=== PATIENT | male | born 1955 | race Caucasian/White ===

== ENCOUNTER 2020-02-16 12:15 | Observation (INO) ==
--- NOTE | 2020-02-16 13:25 | XRay Report ---
XR chest 2V PA/lateral CLINICAL HISTORY: I25.9 PREOPERATIVE CHEST COMPARISON STUDY: February 2008 FINDINGS: The heart is enlarged. There are small septal lines suggesting mild pulmonary vascular beni estion. There are small bilateral pleural effusions. There is no lobar consolidation. Increased basil ar markings while nonspecific, likely represent atelectasis or chronic interstitial lung disease. IMPRESSION: 1. Cardiomegaly, small bilateral pleural effusions, and mild pulmonary vascular congestion 2. Increased basilar markings, likely secondary to atelectasis or chronic interstitial lung disease. ACT 112: Negative or not required by law. Electronically signed by: Jerome Dyson M.D. 02/16/2020 1:24 PM
[2020-02-16 14:06] LABS: Hematocrit (blood only) 41.9 % (42-52); Hemoglobin 14.3 g/dL (14.0-18.0); Mean Corpuscular Hemoglobin 31.9 pg (25-34); Mean Corpuscular Volume 93.5 fL (80-100); Mean Platelet Volume 9.2 fL (7.4-10.4); Platelet Count 145 K/uL (130-400); RDW Coefficient of Variation 13.6 % (11.5-14.5); RDW Standard Deviation 46.6 fL (36.4-46.3); Red Blood Count 4.48 M/uL (4.7-6.1); White Blood Count 7.01 K/uL (4.8-10.8)
[2020-02-16 14:12] LABS: Mean Corpuscular Hgb Conc 34.1 g/dL (32-36)
[2020-02-16 14:15] LABS: INR 1.1 (0.9-1.1); Prothrombin Time 11.2 Seconds (9.0-12.0)
[2020-02-16 14:23] LABS: BUN Creatinine Ratio 10.5 (10-20); Calcium 9.4 mg/dl (8.5-10.1); Creatinine Clr Calc Pharmacy 90.8 ml/min; Est GFR (African American) 83.6; Est GFR (Non-African American) 72.2; Potassium 4.5 mmol/L (3.5-5.1)
[2020-02-16] MEDS ORDERED: HEPARIN (PORCINE) 1000 UNIT/ML 10 ML (CATH LAB USE ONLY) ONE ×2 (15:35→17:05)
[2020-02-16] MEDS ORDERED: MIDAZOLAM HCL 1 MG/ML 2ML VIAL ONE ×2 (15:35→16:53)
[2020-02-16] MEDS ORDERED: fentaNYL citrate 100 MCG/2 ML VIAL ONE (15:35)
[2020-02-16] MEDS ORDERED: NiCARDipine HCL INJ 2.5 MG/ML 10 ML AMP ONE (15:35)
[2020-02-16] MEDS ORDERED: NITROGLYCERIN/D5W 100MCG/ML 20ML SYR ONE (15:36)
--- NOTE | 2020-02-16 15:48 | History & Physical Bridge Note ---
Date of Service February 16, 2020 History & Physical Bridge Note I have examined the patient, reviewed the History & Physical and in the interval since the performance of the History & Physical I have noted the following changes of clinical significance: no changes noted I have explained the risk , benefit and intent of the cath and he is willing to proceed.
[2020-02-16] MEDS ORDERED: SODIUM CHLORIDE 0.9% 1000ML 1,000 ML IV SCH (16:00)
--- NOTE | 2020-02-16 17:09 | Cardiac Catheterization ---
Date of Service February 16, 2020 Cardiac Cath Report Cardiac Cath Report Procedure: 1. Coronary angiography 2. Left heart catheterization 3. Left ventriculogram History: This is a 64-year-old male patient who over 20 years ago had a stent placed due to an acute event. He has done well over the years but recently experienced exertional angina which crescendoed in nature and he was sent in for repeat cardiac catheterization. Procedure summary: After informed consent was obtained, the patient was taken to the cardiac catheterization lab where he was prepped and draped in usual manner for a right transradial approach. Preformed 5 Nigerien diagnostic catheters were utilized for the coronary angiograms. A 5 Nigerien pigtail catheter was utilized for the left ventriculogram and left heart pressures. Following the procedure the patient underwent coronary intervention and then was admitted in stable condition. ACC data: Start time 1555 End time 1620 Opening aortic pressure 106/67 Closing aortic pressure 117/71 Left ventricular pressure 117/19 Sedation 1 mg intravenous Versed IV fluid 150 cc normal saline Contrast 170 cc Optiray Fluoroscopy time 4.8 minutes Radiation 1578 mGy DAP 152.6 Gy/cm Right dominant system AUC score 9 Coronary angiography: The proximal coronary arteries are calcified. Selective injections of the left coronary artery revealed the left main trunk to be short but patent. The left circumflex artery consists principally of a large lateral marginal branch supplying the lateral myocardium. Following that branch the left circumflex artery becomes atretic. There are also 2 small proximal marginal branches. The proximal and mid left circumflex along with the large marginal artery are patent. The LAD has a 95% stenosis in the very proximal segment just after the takeoff of the left main trunk. The LAD then goes on to the apex of the heart. It gives off 2 large diagonal branches. The remainder the LAD system is patent. Injections in the right coronary artery revealed to be dominant. The right coronary artery has an 70% concentric stenosis followed by a 70% stenosis in the mid segment after the takeoff of the marginal branch. The remainder the right coronary artery has nonobstructive disease Left ventriculogram: The left ventricle is dilated. There is global hypokinesis with akinesis of the posterior and inferior myocardium. The estimated left ventricular ejection fraction is around 35 to 40%. The mitral valve is competent. The aortic root and ascending aorta have normal morphology and diameter. Summary: The patient has a high-grade stenosis of the very proximal segment of the LAD which is most likely the culprit of the patient's crescendo angina. The left circumflex artery consists principally of a large posterior lateral marginal branch which is patent. The right coronary artery has two 700% stenoses in its mid segment with the remainder the artery being patent. Recommendations: The index artery is the LAD. The patient will undergo coronary intervention on the proximal LAD. Your of his coronary disease and ischemic cardiomyopathy will be treated medically.
[2020-02-16] MEDS ORDERED: CLOPIDOGREL BISULFATE 300 MG TAB ONE (17:16)
--- NOTE | 2020-02-16 17:29 | Post Anesthesia Assessment ---
Date of Service February 16, 2020 Post Sedation Assessment Vital Signs Pulse Resp BP Pulse Ox 02/16/20 13:35 72 18 142/83 H 96 Recovery Score Activity: Moves 4 extremities Respiration: Deep Breath/Cough Circulation: +/-20% PreAnes Value Consciousness: Fully Awake Oxygen Saturation: O2 needed for >90% Discharge Sedation Level of Care: Fast Track Phase II Post Sedation Plan On clinical assessment, the patient appears to have tolerated the sedation without complications. Patient is recovering as anticipated. Patient will continue to be monitored by nursing and may be discharged when sedation discharge criteria are met per below protocol. Upon Completions of procedure up to 15 minutes continue every 5 minute vital signs and the P.A.R. score; then discharge to a Phase I or Fast Track to Phase II per the following guidelines: * Discharge Patient to appropriate Phase II area if PAR is 8 or greater or return to pre- procedure baseline. The post - procedure orders will be as directed. * If PAR score is less than 8 or not return to pre-procedure baseline then patient will follow Phase I monitoring till PAR is reached for Phase II. The Phase I may be done in procedure room or may call to secure a Phase I area. * If naloxone or flumazenil are used for reversal, hold in Phase I for continued monitoring from when last reversal dose was given for a minimum of 60 minutes or longer pending the nurse and/or physician discretion of patient condition before discharge to Phase II. Please call the Sedation Physician to re-evaluate and complete post-note for discharge to Phase II area. Do NOT discharge from procedure sedation or Phase 1 until post- sedation evaluation note is complete by procedure /sedation MD Sedation Discharge Instructions to be given to the patient at discharge to home.
[2020-02-16] MEDS ORDERED: ONDANSETRON INJ 2 MG/ML 2 ML VIAL IV PRN (17:40)
[2020-02-16] MEDS ORDERED: NITROGLYCERIN SL 0.4 MG/TAB TAB SL PRN (17:40)
[2020-02-16] MEDS ORDERED: ACETAMINOPHEN 325 MG TAB PO PRN (17:40)
--- NOTE | 2020-02-16 17:40 | Cardiac Catheterization ---
[facility] Data: Merchandise Team Manager Cardiac Status Clinical evaluation leading to the procedure CAD Presenation: Unstable angina Anginal Classification: CCS III Heart Failure: No Cardiogenic Shock within 24 Hours: No Cardiac Arrest within 24 Hours: No Imaging Studies Past 6 Months: Yes Stress Studies Past 6 Months: No Stress Echocardiogram: Yes - Positive Diagnostic Physicians Name: Kaiser Brice MD Status: Elective Closure Device Percutaneous Entry Location: Radial Closure Device: Radial Band Recommendations: PCI without planned CABG PCI Indication: + Stress Test (New LV dysfunction) and Unstable Angina Lesion Segment Name: Ostial LAD Culprit Artery: Yes Stenosis Prior to Rx (%): 95 Chronic Total Occlusion: No IVUS: Yes FFR: No Pre-Procedure JUAN RAMON Flow: 2 Previously Treated Lesion: No Lesion Complexity: High/C Lesion Length (mm): 10 Thrombus Present: Yes Bifurcation Lesion: Yes Guidewire Across Lesion: Stenosis Post-Procedure (%): 0 Post-Procedure JUAN RAMON Flow: 3 Devices(s) Deployed: Yes Yes Intraprocedure Events Significant Disection: No Perforation: No Cardiac Cath Procedure Full Procedure Date February 16, 2020 Pre-Procedure Diagnosis Pre-Procedure Diagnosis: Acute Coronary Syndrome and CAD AUC Score AUC Score: 7 Post-Procedure Diagnosis Post-Procedure Diagnosis: Severe CAD and Successful PCI Procedure(s) Performed Procedure(s) Performed: Drug Eluting Stent and IVUS Ironing Pleater Kaiser Brice MD Explosion Welder(s) Chris Reilly Estimated Blood Loss Estimated Blood Loss: 15 Medication(s) Medication(s): Fentanyl, Heparin, Lidocaine 1%, Nicardipine, Nitroglycerin and Versed Summary of Findings Indication: Unstable angina, new LV dysfunction Access: 6 Fr right radial artery Catheters: JL 3.5 guide Findings: For full details of patient's coronary angiography please see cath report dictated by Dr. Garcia. Briefly, patient found to have a acute 95% hazy ostial LAD stenosis. Decision to proceed with PCI. -- PCI -- Antithrombotic therapy: Heparin, clopidogrel Procedure: Left main cannulated with JL 3.5 guide Pro-water wire placed into distal circumflex Jumpbasting Lining Baster 50 wire passed across lesion into distal LAD Proximal LAD lesion predilated with 2.5 compliant balloon IVUS used to assess extent of disease, degree of calcification and for vessel sizing. Found to have mildly calcified plaque extending just to LAD ostium, sparing left main. Dilated lesion stented with 3.0 x 15 mm Xience Sloane drug-eluting stent Stent post-dilated with 3.5 noncompliant balloon Repeat IVUS showed well apposed stent ending just at LAD ostium, underexpanded in mid segment Stent postdilated again with 4.0 NC balloon Post procedure JUAN RAMON 3 flow, stent well expanded with minimal residual stenosis and no apparent cardiac complications. Arterial Closure: TR band Summary: 1. Successful PCI of ostial LAD with single drug-eluting stent (3.0 x 15 mm Xience Sloane; postdilated with 4.0 NC) Recommendations: To PCU for continued monitoring Loaded with clopidogrel 600 mg in Merchandise Team Manager Continue dual-antiplatelet therapy for at least 1 year, consider extended DAPT in the setting of ostial LAD stent placement. Continue statin, and ASCVD risk factor modification Consult cardiac Rehab RCA disease amenable to PCI if additional symptoms. Hemodynamics Rest Ao:: 105/58/76 Final Ao: 115/68/87 LV: -- Recommendations Recommendations: PCI without planned CABG Specimens Specimens: None Radiation Exposure (mGy) 3965 Contrast (mls) 70 Fluids (cc crystalloids) Fluids (cc crystalloids): 91 Drains Drains: None Anesthesia Moderate Procedural Complication(s) None Disposition PCU I attest to the content of the Intraoperative Record and any orders documented therein. Any exceptions are noted below. [facility] Card Cath Procedure Codes Therapeutic Services & Ancillary Proc Procedure 1: Cardiovascular Tx and Anc Procedures: 26537 IV Ultrasound (Coronary or Graft) Moderate Sedation Procedure 1: Sedation/Anesthesia: 48951 Mod Sedation by the same physician; Ea [id number] Minutes Stenting Procedure 1: Cardiovascular Stent Procedures: 11713 Perc transcatheter placement of intracoronary stent(s), with ang PG Care Time/CCT Total # of Minutes Spent Total Time Spent with Patient: Total time spent is greater than 50% in coordination of care (as documented) at patient's floor/unit and/or counseling patient:
[2020-02-16] MEDS: SODIUM CHLORIDE 0.9% 1000ML 1,000 ML IV SCH (18:20)
[2020-02-16] MEDS ORDERED: LORazepam 1 MG TAB PO PRN (20:12)
[2020-02-16] MEDS ORDERED: SIMVASTATIN 40 MG TAB PO SCH (21:00)
[2020-02-17] MEDS: SODIUM CHLORIDE 0.9% 1000ML 1,000 ML IV SCH ×2 (03:44→10:37)
[2020-02-17 07:43] LABS: Basophils # (auto) 0.03 K/uL (0-0.2); Basophils % (auto) 0.4 %; Eosinophils # (auto) 0.13 K/uL (0-0.5); Eosinophils % (auto) 1.9 %; Hematocrit (blood only) 39.9 % (42-52); Hemoglobin 13.7 g/dL (14.0-18.0); Immature Granulocytes # (auto) 0.02 K/uL (0.00-0.02); Immature Granulocytes % (auto) 0.3 %; Lymphocytes # (auto) 1.11 K/uL (1.2-3.4); Lymphocytes % (auto) 16.2 %; Mean Corpuscular Hemoglobin 32.3 pg (25-34); Mean Corpuscular Hgb Conc 34.3 g/dL (32-36); Mean Corpuscular Volume 94.1 fL (80-100); Mean Platelet Volume 9.1 fL (7.4-10.4); Monocytes # (auto) 0.65 K/uL (0.11-0.59); Monocytes % (auto) 9.5 %; Neutrophils # (auto) 4.91 K/uL (1.4-6.5); Neutrophils % (auto) 71.7 %; Platelet Count 127 K/uL (130-400); RDW Standard Deviation 47.5 fL (36.4-46.3); Red Blood Count 4.24 M/uL (4.7-6.1); White Blood Count 6.85 K/uL (4.8-10.8)
[2020-02-17 08:11] LABS: BUN Creatinine Ratio 11.2 (10-20); Calcium 8.8 mg/dl (8.5-10.1); Creatinine Clr Calc Pharmacy 94.6 ml/min; Est GFR (African American) 87.5; Est GFR (Non-African American) 75.5; Potassium 4.3 mmol/L (3.5-5.1)
[2020-02-17] MEDS ORDERED: METOPROLOL SUCC 25MG EXT REL TAB PO SCH (09:00)
[2020-02-17] MEDS ORDERED: CLOPIDOGREL BISULFATE 75 MG TAB PO SCH (09:00)
[2020-02-17] MEDS ORDERED: ASPIRIN 81 MG ECTAB PO SCH (09:00)
[2020-02-17] MEDS ORDERED: allopurinoL 300 MG TAB PO SCH (09:00)
--- NOTE | 2020-02-17 11:32 | Cardiology Progress Note ---
Date of Service February 17, 2020 Assessment & Plan (1) Unstable angina pectoris: (2) Ischemic cardiomyopathy: (3) HTN (hypertension): (4) Dyslipidemia: (5) NSVT (nonsustained ventricular tachycardia): Mr Morgan is a 64-year-old male with a longstanding history of coronary heart disease having previously been treated for a non-ST segment elevation myocardial infarction in 1996 with PCI to the circumflex marginal coronary artery. Echocardiographic data in the meantime, has revealed normal LVEF with circumflex territory scar noted. Patient was seen as an acute visit by my partner Dr. Mcclain yesterday 02/16/2020 noting 3-week history of exertional chest pressure and shortness of breath with minimal activity. EKG performed yesterday revealed new inferolateral repolarization changes, echocardiogram with findings of mild left ventricular chamber dilatation, a moderate sized inferior and posterior wall motion abnormality with akinesis of the segments (chronic finding) and a new moderate sized septal and anteroseptal wall motion abnormality with hypokinesis to akinesis of the segments, new compared to February,. Echo report describes qualitative left ventricular ejection fraction in the range of 35 to 39% (moderately reduced) however on my review of the data, I believe that is closer to 35%. Moderate secondary mitral regurgitation was also noted and grade 3 diastolic dysfunction. Due to concerns of new wall motion abnormality and symptoms suggestive of unstable angina, the patient was referred for same-day coronary angiography yesterday and was found to have a culprit hazy severe proximal left anterior descending coronary artery stenosis which was treated with PCI and drug-eluting stent placement with excellent angiographic results. The right coronary artery was noted to have severe diffuse calcific atherosclerosis with serial stenosis ranging 70% and 70% in the midportion of the right coronary artery. This appears to be chronic by appearance rather than the acute appearance of the LAD lesion. The patient feels well today, post procedure day 1, however he did have a 5 beat run of nonsustained ventricular tachycardia noted this morning. Renal function electrolytes are stable. At present, the patient feels well. I discussed with him that I believe the residual right coronary artery disease may need to be addressed, if he has recurrent anginal symptoms. The new wall motion abnormality is consistent with the LAD stenosis, for which revascularization took place yesterday. I discussed his risk of potential sudden cardiac given coronary heart disease, and left ventricular systolic dysfunction, LVEF 35%. I personally recommended the patient proceeds with wearin a Life Vest during the window period with plans to reassess his LVEF 3 months post PCI. He states he feels well, and he is eager for discharge. His personal preference is to see how he feels, and to follow-up as an outpatient for consideration of complex RCA PCI depending upon whether or not he has recurrent symptoms. He would like to consider LifeVest, and a referral has been placed to [employer] and his insurance company for expedited approval. Medications: Patient is to be on dual antiplatelet therapy with aspirin and clopidogrel. Clopidogrel therapy for 1 year is recommended at which time ongoing dual antiplatelet therapy will be reassessed. He is to continue metoprolol succinate 25 mg daily, simvastatin 40 mg daily. Per review of his record, his most recent LDL cholesterol level had been drawn in July 2019, with LDL level of 102 mg/dL at that time, which is above his goal of less than 70 mg/dL. Outpatient records document intolerance to both atorvastatin and rosuvastatin. Ezetimibe to be added. In addition losartan 25 mg daily will be added given his findings of new LV systolic dysfunction. Close outpatient cardiology follow-up will be arranged. Subjective Follow-up presentation with unstable angina, coronary heart disease. Patient states he feels well this morning. He denies any recurrent chest discomfort or shortness of breath with short walks to use the bathroom. On telemetry this morning he was found to have a 5 beat run of nonsustained ventricular tachycardia at 7:05 AM with no associated symptoms. EKG performed this morning 02/17/2020 at 7:32 AM revealed normal sinus rhythm at 79 bpm with T wave inversions noted in the inferior and lateral leads, relatively unchanged compared to the preprocedure EKG performed as an outpatient at [facility] on 02/16/20. Labs stable with normal kidney function and electrolytes. Review of Systems Review of Systems: All systems reviewed & are unremarkable except as noted in HPI & below Physical Exam Physical Exam: Temp Pulse Resp BP Pulse Ox 36.7 C 66 19 137/62 91 02/17/20 07:07 02/17/20 08:08 02/17/20 07:07 02/17/20 07:07 02/17/20 07:07 Constitutional: WD/WN, vitals as above Respiratory: normal respiratory effort, lungs clear to auscultation Cardiovascular: RRR, no murmur, no edema Vessels: no JVD Extremities: no edema Right radial artery catheterization site clean dry and intact. Gastrointestinal (Abdomen): normal bowel sounds, soft, nontender, no hepatosplenomegaly Neurologic: PERRL, EOMI, accommodation nl, no face palsy, no dysarthria Results & Data Vital Signs (Past 12 Hours) Vital Signs Temp Pulse Pulse Pulse Resp BP Pulse Ox 02/17/20 08:08 66 02/17/20 07:07 36.7 C 82 19 137/62 91 02/17/20 04:00 36.3 C L 92 H 20 123/66 90
[2020-02-17] MEDS ORDERED: EZETIMIBE 10 MG TABLET PO SCH (11:45)
--- NOTE | 2020-02-17 13:45 | Electrocardiogram Report ---
Test Reason : Blood Pressure : / mmHG Vent. Rate : 079 BPM Atrial Rate : 079 BPM P-R Int : 156 ms QRS Dur : 100 ms QT Int : 408 ms P-R-T Axes : 071 035 220 degrees QTc Int : 467 ms Normal sinus rhythm Low voltage QRS Poor R wave progression, consider anterior [place] vs. lead placement vs. LVH T wave abnormality, consider inferolateral ischemia Abnormal ECG When compared with ECG of 19-JUN-2015 04:15, ST now depressed in Inferior leads ST now depressed in Anterior leads Confirmed by Eloy Jones ([id number]) on 02/17/2020 1:45:13 PM Referred By: Víctor Mcclain Confirmed By:Eloy Jones
--- NOTE | 2020-02-17 16:23 | Discharge Summary ---
Date of Service February 17, 2020 Principal Diagnosis unstable angina Discharge Data Allergies Allergy/AdvReac Type Severity Reaction Status Date / Time No Known Allergies Allergy Unknown ` Verified 06/19/15 03:54 Consultations 02/16/20 17:42 Consult Cardiac Rehabilitation Routine Procedures Performed Operation Date: 02/16/20 14:30 Actual Procedures p Cath, Left with Cors and Priscilla - Micky Garcia, DO Ordered Studies 02/16/20 13:44 CL Cath Imgs for PACS use only Routine Hospital Course (1) Unstable angina pectoris: (2) Ischemic cardiomyopathy: (3) HTN (hypertension): (4) Dyslipidemia: (5) NSVT (nonsustained ventricular tachycardia): Mr Morgan is a 64-year-old male with a longstanding history of coronary heart disease having previously been treated for a non-ST segment elevation myocardial infarction in 1996 with PCI to the circumflex marginal coronary artery. Echocardiographic data in the meantime, has revealed normal LVEF with circumflex territory scar noted. Patient was seen as an acute visit by my partner Dr. Mcclain yesterday 02/16/2020 noting 3-week history of exertional chest pressure and shortness of breath with minimal activity. EKG performed yesterday revealed new inferolateral repolarization changes, echocardiogram with findings of mild left ventricular chamber dilatation, a moderate sized inferior and posterior wall motion abnormality with akinesis of the segments (chronic finding) and a new moderate sized septal and anteroseptal wall motion abnormality with hypokinesis to akinesis of the segments, new compared to February,. Echo report describes qualitative left ventricular ejection fraction in the range of 35 to 39% (moderately reduced) however on my review of the data, I believe that is closer to 35%. Moderate secondary mitral regurgitation was also noted and grade 3 diastolic dysfunction. Due to concerns of new wall motion abnormality and symptoms suggestive of unstable angina, the patient was referred for same-day coronary angiography yesterday and was found to have a culprit hazy severe proximal left anterior descending coronary artery stenosis which was treated with PCI and drug-eluting stent placement with excellent angiographic results. The right coronary artery was noted to have severe diffuse calcific atherosclerosis with serial stenosis ranging 70% and 70% in the midportion of the right coronary artery. This appears to be chronic by appearance rather than the acute appearance of the LAD lesion. The patient feels well today, post procedure day 1, however he did have a 5 beat run of nonsustained ventricular tachycardia noted this morning. Renal function electrolytes are stable. At present, the patient feels well. I discussed with him that I believe the residual right coronary artery disease may need to be addressed, if he has recurrent anginal symptoms. The new wall motion abnormality is consistent with the LAD stenosis, for which revascularization took place yesterday. I discussed his risk of potential sudden cardiac given coronary heart disease, and left ventricular systolic dysfunction, LVEF 35%. I personally recommended the patient proceeds with wearin a Life Vest during the window period with plans to reassess his LVEF 3 months post PCI. He states he feels well, and he is eager for discharge. His personal preference is to see how he feels, and to follow-up as an outpatient for consideration of complex RCA PCI depending upon whether or not he has recurrent symptoms. He would like to consider LifeVest, and a referral has been placed to [employer] and his insurance company for expedited approval. Medications: Patient is to be on dual antiplatelet therapy with aspirin and clopidogrel. Clopidogrel therapy for 1 year is recommended at which time ongoing dual antiplatelet therapy will be reassessed. He is to continue metoprolol succinate 25 mg daily, simvastatin 40 mg daily. Per review of his record, his most recent LDL cholesterol level had been drawn in July 2019, with LDL level of 102 mg/dL at that time, which is above his goal of less than 70 mg/dL. Outpatient records document intolerance to both atorvastatin and rosuvastatin. Ezetimibe to be added. In addition losartan 25 mg daily will be added given his findings of new LV systolic dysfunction. Close outpatient cardiology follow-up will be arranged. Total Time Total Time Spent Total Time Spent (In Minutes): 45 Discharge Plan Discharge Items Patient Disposition: Home - Self-Care Reason For Visit: PCI Discharge Diagnosis: Unstable angina, ischemic cardiomyopathy, cardiac catheterization, percutaneous coronary intervention of the LAD Condition on Discharge: Good Activity: Per Instructions section Non-emergency contact: Insole Doubler Call non-emergency contact if: you have any medication questions Follow-up/Referrals: Rohan Mckenzie, [Primary Care Provider] - Diet: Heart Healthy Addtl Attending Provider Instructions: ACTIVITY RECOMMENDATIONS: Excess manipulation of the wrist should be avoided for the next 24-48 hours. * No lifting over 2 pounds (approximately a 1/2 gallon of milk) with the utilized arm for 24 hours. * No strenuous activity such as bowling or tennis for 3 days. * Keep the site of the procedure covered with a bandage for 24 hours. *You may shower the day after the procedure. Do not take a tub bath or submerge the puncture site in water for the next 3 days. *Do not operate any motorized equipment for 3 days. SPECIAL CARE INSTRUCTIONS: The site may be slightly bruised and sore following your procedure. Should any of the following occur, contact the Dr. who performed your procedure. 1. Redness/inflammation, swelling, chills, or fever, or colored drainage at procedure site within 3-7 days after your procedure. 2. Coldness, discoloration, ongoing numbness, severe pain, or swelling. Expect mild tingling of hand and tenderness at the puncture site for up to three days. If this persists beyond three days, or other symptoms develop, notify the Dr. who performed your procedure. BLEEDING: If the procedure site on your wrist begins to bleed, do not panic 1. Place 1 or 2 fingers firmly just slightly above the insertion site to stop the bleeding. You may be able to feel your pulse as you hold pressure. 2. Lift your finger after 5 minutes to see if the bleeding has stopped. 3. Once the bleeding has stopped, gently wipe the wrist area clean with a bandage. * If the bleeding from your wrist does not stop after 10 minutes, or if there is a large amount of bleeding or spurting, call 911 (do not drive yourself to the hospital). SKIN IRRITATION: * You may experience some redness and/or swelling in the area where radiation was administered. If any skin irritation occurs, please contact your family physician. FOLLOW UP VISIT: Keep any scheduled doctor appointments. Pending Studies at Discharge: No Stand-Alone Forms: [employer], Smoking Cessation Medications and DC Order Prescriptions: New clopidogrel 75 mg Tablet 75 mg PO QAM Qty: 30 RF: 11 aspirin 81 mg Tablet,Delayed Release (Dr/Ec) 81 mg PO QAM Qty: 30 RF: 11 losartan 25 mg Tablet 25 mg PO QAM Qty: 30 RF: 11 nitroglycerin [Nitrostat] 0.4 mg Tablet, Sublingual 0.4 mg sublingual PRN PRN (Reason: chest pain) Qty: 30 RF: 11 ezetimibe [Zetia] 10 mg Tablet 10 mg PO QAM Qty: 30 RF: 11 Continued Metoprolol Succ (Toprol Xl) (Toprol-Xl) 25 MG [id number] 25 mg PO DAILY Qty: 30 RF: 0 Simvastatin (Zocor) 40 MG tablet 40 mg PO QPM Qty: 0 RF: 0 ALLOPURINOL (ZYLOPRIM) 300 MG tablet 300 mg PO DAILY Qty: 0 RF: 0 Discontinued ASPIRIN 325 MG tablet 325 mg PO DAILY Qty: 0 RF: 0 Discharge Orders: Discharge Order (Routine); Ordered 02/17/20 Ordered By: Amari Zhong/Other Patient Handouts: Ventricular Arrhythmia, Having Cardiac Ca theterization, Taking Aspirin for Atherosclerosis, Clopidogrel tablets, Ezetimibe Tablets, Nitroglycerin sublingual tablets, Losartan tablets Admission Data Admit Date/Time: 02/16/20 16:29 Attending Provider: Micky Garcia Admit Provider: Micky Garcia Primary Care Provider: Rohan Mckenzie Other Interventions: Discharge Summary Assessment (RN) Last Done: 02/17/20 15:42
--- NOTE | 2020-02-17 16:23 | Communication Note ---
Date of Service: February 17, 2020 Life Vest fitted. Stable for discharge.
[2020-02-18] MEDS ORDERED: LOSARTAN POTASSIUM 25 MG TAB PO SCH (09:00)
== END 2020-02-17 16:38 | disposition home or self-care (01) ==
LOC: CC 12:15 → 2S 12:15

== ENCOUNTER 2021-01-02 14:35 | Inpatient (IN) ==
[2021-01-02] MEDS ORDERED: SODIUM CHLORIDE 0.9% 1000ML 1,000 ML IV ONE (14:58)
--- NOTE | 2021-01-02 15:23 | XRay Report ---
XR chest 1V portable HISTORY: Atypical Chest Pain COMPARISON: Chest 02/16/2020. FINDINGS: No pneumothorax. No pleural effusions. The heart remains enlarged. The left lung is clear. Stable volume loss and basilar interstitial thickening within the right lung. Old, healed left-sided rib fractures are again noted. IMPRESSION: No significant change compared to the prior study. No acute process. Stable mild volume loss and engraver rubber baldev interstitial thickening at the right lung base. ACT 112: Negative or not required by law. Electronically signed by: Refugio Lyon M.D. 01/02/2021 3:22 PM
[2021-01-02 15:41] LABS: Albumin Level 3.3 gm/dl (3.4-5.0); BUN Creatinine Ratio 13.8 (10-20); Calcium 9.1 mg/dl (8.5-10.1); Creatinine Clr Calc Pharmacy 76.3 ml/min; Est GFR (African American) 71.7 ml/min; Est GFR (Non-African American) 61.8 ml/min; Potassium 4.2 mmol/L (3.5-5.1)
[2021-01-02 15:46] LABS: Albumin Globulin Ratio 0.8 (0.9-2); Bilirubin,Total 0.9 mg/dl (0.2-1); Globulin 4.1 gm/dl (2.5-4.0); Total Protein 7.4 gm/dl (6.4-8.2); Troponin I 0.019 ng/ml (0-0.045)
[2021-01-02 15:50] LABS: Hematocrit (blood only) 44.5 % (42-52); Hemoglobin 15.6 g/dL (14.0-18.0); Mean Corpuscular Hemoglobin 32.4 pg (25-34); Mean Corpuscular Hgb Conc 35.1 g/dL (32-36); Mean Corpuscular Volume 92.3 fL (80-100); RDW Standard Deviation 47.3 fL (36.4-46.3); Red Blood Count 4.82 M/uL (4.7-6.1); White Blood Count 5.51 K/uL (4.8-10.8)
[2021-01-02 15:58] LABS: Partial Thromboplastin Ratio 1.1; Partial Thromboplastin Time 28.3 Seconds (21.0-31.0)
[2021-01-02 16:09] LABS: Basophils # (auto) 0.01 K/uL (0-0.2); Basophils % (auto) 0.2 %; Eosinophils # (auto) 0.01 K/uL (0-0.5); Eosinophils % (auto) 0.2 %; Immature Granulocytes # (auto) 0.02 K/uL (0.00-0.02); Immature Granulocytes % (auto) 0.4 %; Lymphocytes # (auto) 0.76 K/uL (1.2-3.4); Lymphocytes % (auto) 13.8 %; Mean Platelet Volume 10.3 fL (7.4-10.4); Monocytes # (auto) 0.59 K/uL (0.11-0.59); Monocytes % (auto) 10.7 %; Neutrophils # (auto) 4.12 K/uL (1.4-6.5); Neutrophils % (auto) 74.7 %; Platelet Count 81 K/uL (130-400)
[2021-01-02 16:19] LABS: D Dimer 2920 ug/L FEU (0-500)
[2021-01-02] MEDS ORDERED: OPTIRAY 320 125ml IV ONE (16:31)
--- NOTE | 2021-01-02 16:36 | Electrocardiogram Report ---
Test Reason : Blood Pressure : / mmHG Vent. Rate : 057 BPM Atrial Rate : 057 BPM P-R Int : 156 ms QRS Dur : 094 ms QT Int : 430 ms P-R-T Axes : 033 000 157 degrees QTc Int : 418 ms Sinus bradycardia Nonspecific ST and T wave abnormality Abnormal ECG When compared with ECG of 17-FEB-2020 07:32, Minimal criteria for Anterior infarct are no longer Present Confirmed by Kaiser Gutierrez ([id number]) on 01/02/2021 4:36:09 PM Referred By: REFERRED SELF Confirmed By:Adelso Gutierrez
[2021-01-02] MEDS ORDERED: dexAMETHasone**PF** 10 MG/ML VIAL IV ONE (16:46)
--- NOTE | 2021-01-02 17:11 | CT Scan Report ---
CT ANGIOGRAM OF THE CHEST CLINICAL HISTORY: hypoxic recent travel COMPARISON STUDY: 03/11/2014 TECHNIQUE: Following the IV administration of 118 mL of Optiray, CT angiogram of the thorax was perfo rmed from the thoracic inlet to the lung bases utilizing the pulmonary embolus protocol. Images are r eviewed in the axial, sagittal, and coronal planes. IV contrast was administered without complication . MIP imaging was performed. A dose lowering technique was utilized adhering to the principles of AL CELINA. CT DOSE: 1693.26 mGycm FINDINGS: There is adequate opacification of the main pulmonary artery. Evaluation of peripheral branches of pu lmonary artery is limited due to respiratory motion artifact. No evidence of acute central pulmonary embolus. Pulmonary artery is normal in caliber. No evidence of right heart strain. Mild four-chamber cardiomegaly. No evidence of pericardial effusion. Severe coronary calcifications a re seen. There is no axillary, supra clavicle or internal mammary lymphadenopathy seen. There is mild enlargem ent of mediastinal lymph nodes measuring up to 1.4 cm in diameter. Right hilar lymph node is measurin g 2.0 cm in size. Visualized portion of thyroid gland shows no evidence of acute abnormalities. Mild diffuse thickening of nasopharyngeal wall is seen. Aorta is normal in caliber with few scattered calcifications of its wall. Tracheobronchial tree is patent. This study is acquired during partial expiratory phase, evaluation of lung parenchyma is limited due to prominent respiratory motion artifact. There are mixed areas of groundglass attenuation with patchy areas of consolidation and septal thicke anjali within peripheral aspect of the right upper and lower lobes. No pleural effusion is seen. Limited evaluation of upper abdominal viscera shows no evidence of acute abnormalities. Evaluation of osseous structures shows minimal degenerative changes of the spine. IMPRESSION: 1. No evidence of central pulmonary embolus. Evaluation of peripheral branches of pulmonary artery i s limited due to motion artifact. 2. Mixed groundglass and consolidative opacities associated with septal thickening at the peripheral aspect of the right upper and lower lobes might represent atypical pneumonia versus other etiology. Short-term follow-up with CT of the chest without IV contrast in 4-6 weeks is recommended to document resolution. 3. Mild mediastinal lymphadenopathy, likely reactive. 4. Atherosclerosis. ACT 112: Positive. There are findings on this exam that require communication between the performing entity and the patient following Patient Test Result Information Act ([place] Act 112) guidelines. The above report was generated using voice recognition software. It may contain grammatical, syntax o r spelling errors. Electronically signed by: Ade Whittaker DO 01/02/2021 5:10 PM
--- NOTE | 2021-01-02 17:18 | CT Scan Report ---
CT SCAN OF THE ABDOMEN AND PELVIS WITH IV CONTRAST CLINICAL HISTORY: Generalized abdominal pain. Covid. COMPARISON STUDY: Abdominal CT dated 03/11/2014. TECHNIQUE: Following the IV administration of 118 cc of Optiray 320, CT scan of the abdomen and pelv is is performed from the lung bases to the proximal femora. Images are reviewed in the axial, sagitta l, and coronal planes. IV contrast was administered without complication. A dose lowering technique w as utilized adhering to the principles of ALARA. FINDINGS: Lung bases: The heart is normal in size and without pericardial effusion. Fatty change in the left ve ntricular wall suggests previous ischemia. The coronary arteries are densely calcified. There is patc hy groundglass consolidation identified at the right lung base. Scarring/atelectasis is seen at the l eft lung base. There is trace right pleural effusion. A small hiatal hernia is noted. Liver: The contrast-enhanced liver is normal in size, contour, and attenuation. There is no intrahepa tic biliary ductal dilatation. The hepatic veins and portal veins are patent. Gallbladder: Unremarkable. Spleen: Normal in size and attenuation. Pancreas: Unremarkable. Adrenal glands: Unremarkable. Kidneys: The contrast enhanced kidneys are normal in size and without hydronephrosis. The kidneys enh ance symmetrically. Abdominal vasculature: There is moderate to advanced atherosclerotic calcification mild ectasia of th e abdominal aorta. Bowel: There is no bowel obstruction. There is mild to moderate colonic diverticulosis without CT harriet dence of acute diverticulitis. The appendix is not identified and reported surgically absent. Peritoneum: There is no intraperitoneal free air or abdominal ascites. There is a small fat-containin g umbilical hernia. Lymphadenopathy: None. Pelvic viscera: The prostate gland is mildly enlarged and heterogeneous noting median lobe hypertroph y. The bladder is mildly distended but otherwise normal as imaged. Skeletal structures: No lytic or blastic lesions are seen. 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 IMPRESSION: 1. There are no acute infectious or inflammatory findings in the abdomen or pelvis. 2. Airspace consolidation is seen at the right lung base is typical for pneumonia. Clinical correlati on will be required and radiographic follow-up to resolution is recommended. 3. 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 4. Advanced coronary artery calcification. 5. Colonic diverticulosis without CT evidence of acute diverticulitis. 6. Additional findings as above. ACT 112: Negative or not required by law. Electronically signed by: Navin Yip M.D. 01/02/2021 5:16 PM
--- NOTE | 2021-01-02 17:44 | Emergency Department Note ---
Impression & Plan COVID-19, Weakness, Diarrhea ED Provider Note NAME: ZACHARIAH RIDER AGE: 65 SEX: M : 1955 ARRIVES VIA: Walk-In INFORMANT: Patient ED PROVIDER(S): Osiel Melendez DO CHIEF COMPLAINT: Diarrhea weakness HPI: Patient is a 65-year-old male with a past medical history of CAD with stent, ischemic cardiomyopathy, hypertension, dyslipidemia and nonsustained VT that presents the ER for cough diarrhea and weakness. He recent travel from [place] back to [place].He was seen at [facility] and referred into the ER. He has had diarrhea for several days. Cough has been intermittently nonproductive and then sometimes with a white productive sputum. Denies any recorded fevers. No focal pain in his belly. No nausea or vomiting. Denies any dysuria urgency or frequency.Admits to receiving the Covid vaccine and believes he received the Pfizer both first and second dose with his last dose he thinks somewhere in September but is not 100% sure. ROS: See above HPI for pertinent positives & negatives. A total of 10 systems reviewed and were otherwise negative. PAST MEDICAL HISTORY:See Below PAST SURGICAL HISTORY:See Below FAMILY HISTORY:See Below SOCIAL HISTORY:See Below HOME MEDICATIONS:See Below ALLERGIES:See Below VITALS:See Below PHYSICAL EXAMINATION: GENERAL: Sitting up in bed, alert, well appearing, well nourished, no distress, non-toxic, Intermittent cough EYE EXAM: normal conjunctiva. OROPHARYNX: no exudate, no erythema, lips, buccal mucosa, and tongue normal and mucous membranes are moist NECK: supple, no nuchal rigidity, no adenopathy, non-tender LUNGS: Diminished bilaterally. Normal chest wall mechanics HEART: no murmurs, S1 normal and S2 normal ABDOMEN: abdomen soft, non-tender, normo-active bowel sounds, no masses, no rebound or guarding. UPPER EXTREMITIES: upper extremities are grossly normal. LOWER EXTREMITIES: No pitting edema. NEURO EXAM: Normal sensorium, cranial nerves II-XII grossly intact, normal speech, no gross weakness of arms, no gross weakness of legs. MEDICAL DECISION MAKING: Patient is a 65-year-old male who presents ER for cough diarrhea weakness. IV was established blood work was obtained. Labs show no significant leukocytosis or anemia. D-dimer was elevated at 3000. BMP with mild hyponatremia. LFTs bilirubin was unremarkable. Lipase was slightly elevated at Nearly 500. Covid was positive. Chest x-ray CT angio of the chest shows multifocal bilateral infiltrates. CT abdomen pelvis showed no focal pathology. Patient was given IV fluids and Decadron. He is hypoxic with minimal exertion. Otherwise he is satting 90 to 92%. He was updated bedside. His EKG was unchanged from previous. He was discussed with hospitalist and will be admitted for further work-up. Triage Nursing notes reviewed. Limited review of prior medical records performed Vital Signs: reviewed and remarkable for hypoxic Differential diagnosis: Infection, dehydration, metabolic abnormality, hypo/hyperglycemia, electrolyte disturbance, anemia, hypoxia, cardiac sources, intracerebral event, toxicologic, neurologic, as well as other pathologies. ER treatment provided: See below Diagnostics interpreted by me: ECG: Bradycardia rate of 57 Normal axis No PVCs T wave inversion in lateral leads septal Q waves Nonspecific ST wave changes in the lateral leads ST wave changes are significantly improved from previous In February 2020 Cardiac Monitoring: An order was placed for continuous cardiac monitoring. The monitor shows a rate of 57 with sinus rhythm. Laboratory studies: As stated above and show below. Imaging studies: CT Isabela of the chest shows no PEs but multifocal pneumonia CT abdomen pelvis shows no acute pathology in the pelvis and abdomen Consultation(s): Discussed with [facility] hospitalist for further evaluation and patient will go to Dr. Florecita Zambrano Procedures: none Critical Care: None Past Med/Surg History Medical History (Updated 01/02/21 @ 17:44 by Osiel Melendez DO) CAD (coronary artery disease) Dyslipidemia History of tobacco abuse Hypertension Mouth cancer Neuropathic foot ulcer Nonsustained ventricular tachycardia NSTEMI (non-ST elevated myocardial infarction) Total of 4. 1996 Circumflex, 02/16/2020 Proximal LAD, 03/07/2020 Proximal and Mid RCA Surgical History (Updated 04/10/20 @ 14:07 by Ivy Jenkins RN) Stented coronary artery Social History Smoking Status: Never smoker Second Hand Exposure: Yes; Hx Alcohol Use: Yes Alcohol type: beer Hx Substance Use: No Preferred Language: Bulgarian Stand Up Comedian Required: No Beliefs That Will Affect Care: None Current Living Situation: Spouse Feels Safe at Home: Yes Assistive Devices: None Allergies Allergies Allergy/AdvReac Type Severity Reaction Status Date / Time No Known Allergies Allergy Unknown ` Verified 01/02/21 16:55 Home Meds Home Medications Medication Instructions Recorded Confirmed allopurinol 300 mg PO HS 01/02/21 01/02/21 ascorbic acid (vitamin C) [Vitamin 100 mg PO DAILY 01/02/21 01/02/21 C] furosemide 20 mg PO WK 01/02/21 01/02/21 metoprolol succinate 25 mg PO DAILY 01/02/21 01/02/21 simvastatin 40 mg PO HS 01/02/21 01/02/21 vitamin B complex 1 tab PO DAILY 01/02/21 01/02/21 Previous Rx's Medication Instructions Recorded aspirin 81 mg PO QAM #30 tab 02/17/20 clopidogrel 75 mg PO QAM #30 tab 02/17/20 ezetimibe [Zetia] 10 mg PO QAM #30 tab 02/17/20 losartan 25 mg PO QAM #30 tab 02/17/20 nitroglycerin [Nitrostat] 0.4 mg SUBLINGUAL PRN PRN #30 tab 02/17/20 Results & Data (ED) Vital Signs Vital Signs - 24 hr 01/02/21 14:37 01/02/21 14:56 Temperature 36.4 C L Temperature Source Temporal Artery Scan Pulse Rate 74 61 Pulse Rhythm Regular Respiratory Rate 20 18 Respiratory Effort / Characteristics Non-Labored Spontaneous Respiratory Depth Normal Pulse Oximetry 88 L 92 Oxygen Delivery Method Room Air Room Air Sepsis Recent Fever Within 48 Hours No Sepsis New/Unexplained Change in Mental Status N/A Sepsis Action Taken by Nursing No Action Required Laboratory Data Result diagrams: 01/02/21 15:04 01/02/21 15:04 Lab Results 01/02/21 01/02/21 01/02/21 Range/Units 15:04 15:04 15:04 WBC 5.51 (4.8-10.8) K/uL RBC 4.82 (4.7-6.1) M/uL Hgb 15.6 (14.0-18.0) g/dL Hct 44.5 (42-52) % MCV 92.3 (80-100) fL MCH 32.4 (25-34) pg MCHC 35.1 (32-36) g/dL RDW Std Deviation 47.3 H (36.4-46.3) fL RDW Coeff of Sim 14.0 (11.5-14.5) % Plt Count 81 L (130-400) K/uL MPV 10.3 (7.4-10.4) fL Immature Gran % (Auto) 0.4 % Neut % (Auto) 74.7 % Lymph % (Auto) 13.8 % [place] % (Auto) 10.7 % Eos % (Auto) 0.2 % Baso % (Auto) 0.2 % Neut # (Auto) 4.12 (1.4-6.5) K/uL Lymph # (Auto) 0.76 L (1.2-3.4) K/uL [place] # (Auto) 0.59 (0.11-0.59) K/uL Eos # (Auto) 0.01 (0-0.5) K/uL Baso # (Auto) 0.01 (0-0.2) K/uL Immature Gran # (Auto) 0.02 (0.00-0.02) K/uL APTT 28.3 (21.0-31.0) Seconds PTT Ratio 1.1 D-Dimer 2920 H* (0-500) ug/L FEU Sodium 132 L (136-145) mmol/L Potassium 4.2 (3.5-5.1) mmol/L Chloride 96 L (98-107) mmol/L Carbon Dioxide 27 (21-32) mmol/L Anion Gap 9.0 (3-11) BUN 17 (7-18) mg/dl Creatinine 1.22 (0.6-1.4) mg/dl Est Cr Clr Drug Dosing 76.3 ml/min Est GFR ( Amer) 71.7 ml/min Est GFR (Non-Af Amer) 61.8 ml/min BUN/Creatinine Ratio 13.8 (10-20) Glucose 111 H (70-99) mg/dl Calcium 9.1 (8.5-10.1) mg/dl Total Bilirubin 0.9 (0.2-1) mg/dl AST 58 H (15-37) U/L ALT 46 (12-78) U/L Alkaline Phosphatase 77 (45-117) U/L Troponin I 0.019 (0-0.045) ng/ml Total Protein 7.4 (6.4-8.2) gm/dl Albumin 3.3 L (3.4-5.0) gm/dl Globulin 4.1 H (2.5-4.0) gm/dl Albumin/Globulin Ratio 0.8 L (0.9-2) Lipase 486 H (73-393) U/L COVID-19 Eval Order SARS-CoV-2 (PCR) (Negative) 01/02/21 01/02/21 Range/Units 15:19 15:19 WBC (4.8-10.8) K/uL RBC (4.7-6.1) M/uL Hgb (14.0-18.0) g/dL Hct (42-52) % MCV (80-100) fL MCH (25-34) pg MCHC (32-36) g/dL RDW Std Deviation (36.4-46.3) fL RDW Coeff of Sim (11.5-14.5) % Plt Count (130-400) K/uL MPV (7.4-10.4) fL Immature Gran % (Auto) % Neut % (Auto) % Lymph % (Auto) % [place] % (Auto) % Eos % (Auto) % Baso % (Auto) % Neut # (Auto) (1.4-6.5) K/uL Lymph # (Auto) (1.2-3.4) K/uL [place] # (Auto) (0.11-0.59) K/uL Eos # (Auto) (0-0.5) K/uL Baso # (Auto) (0-0.2) K/uL Immature Gran # (Auto) (0.00-0.02) K/uL APTT (21.0-31.0) Seconds PTT Ratio D-Dimer (0-500) ug/L FEU Sodium (136-145) mmol/L Potassium (3.5-5.1) mmol/L Chloride (98-107) mmol/L Carbon Dioxide (21-32) mmol/L Anion Gap (3-11) BUN (7-18) mg/dl Creatinine (0.6-1.4) mg/dl Est Cr Clr Drug Dosing ml/min Est GFR ( Amer) ml/min Est GFR (Non-Af Amer) ml/min BUN/Creatinine Ratio (10-20) Glucose (70-99) mg/dl Calcium (8.5-10.1) mg/dl Total Bilirubin (0.2-1) mg/dl AST (15-37) U/L ALT (12-78) U/L Alkaline Phosphatase (45-117) U/L Troponin I (0-0.045) ng/ml Total Protein (6.4-8.2) gm/dl Albumin (3.4-5.0) gm/dl Globulin (2.5-4.0) gm/dl Albumin/Globulin Ratio (0.9-2) Lipase (73-393) U/L COVID-19 Eval Order Covid19 at [facility] SARS-CoV-2 (PCR) POSITIVE A* (Negative) Administered Medications Discontinued Medications Dexamethasone Sodium Phosphate (DexamethasonePf 10 Mg/Ml Vial) 6 mg IV NOW ONE Stop: 01/02/21 16:47 Last Admin: 01/02/21 16:57 Dose: 6 mg Documented by: [id number] Sodium Chloride (Nss 1000ml) 1,000 mls @ 999 mls/hr IV .Q1H1M ONE Stop: 01/02/21 15:58 Last Infusion: 01/02/21 16:33 Dose: 999 mls/hr Documented by: [id number] Admin: 01/02/21 15:32 Dose: 999 mls/hr Documented by: [id number] Ioversol (Optiray 320 125ml) 118 ml IV ONCE ONE Stop: 01/02/21 16:32 Last Admin: 01/02/21 16:33 Dose: 118 ml Documented by: [id number] Imaging Data Radiologist's Impression: Chest X-Ray 01/02/21 14:56 XR chest 1V portable HISTORY: Atypical Chest Pain COMPARISON: Chest 02/16/2020. FINDINGS: No pneumothorax. No pleural effusions. The heart remains enlarged. The left lung is clear. Stable volume loss and basilar interstitial thickening within the right lung. Old, healed left-sided rib fractures are again noted. IMPRESSION: No significant change compared to the prior study. No acute process. Stable mild volume loss and chronic interstitial thickening at the right lung base. ACT 112: Negative or not required by law. Electronically signed by: Refugio Lyon M.D. 01/02/2021 3:22 PM Abdomen/Pelvis CT 01/02/21 16:16 CT SCAN OF THE ABDOMEN AND PELVIS WITH IV CONTRAST CLINICAL HISTORY: Generalized abdominal pain. Covid. COMPARISON STUDY: Abdominal CT dated 03/11/2014. TECHNIQUE: Following the IV administration of 118 cc of Optiray 320, CT scan of the abdomen and pelvis is performed from the lung bases to the proximal femora. Images are reviewed in the axial, sagittal, and coronal planes. IV contrast was administered without complication. A dose lowering technique was utilized adhering to the principles of ALARA. FINDINGS: Lung bases: The heart is normal in size and without pericardial effusion. Fatty change in the left ventricular wall suggests previous ischemia. The coronary arteries are densely calcified. There is patchy groundglass consolidation identified at the right lung base. Scarring/atelectasis is seen at the left lung base. There is trace right pleural effusion. A small hiatal hernia is noted. Liver: The contrast-enhanced liver is normal in size, contour, and attenuation. There is no intrahepatic biliary ductal dilatation. The hepatic veins and portal veins are patent. Gallbladder: Unremarkable. Spleen: Normal in size and attenuation. Pancreas: Unremarkable. Adrenal glands: Unremarkable. Kidneys: The contrast enhanced kidneys are normal in size and without hydronephrosis. The kidneys enhance symmetrically. Abdominal vasculature: There is moderate to advanced atherosclerotic calcification mild ectasia of the abdominal aorta. Bowel: There is no bowel obstruction. There is mild to moderate colonic diverticulosis without CT evidence of acute diverticulitis. The appendix is not identified and reported surgically absent. Peritoneum: There is no intraperitoneal free air or abdominal ascites. There is a small fat-containing umbilical hernia. Lymphadenopathy: None. Pelvic viscera: The prostate gland is mildly enlarged and heterogeneous noting median lobe hypertrophy. The bladder is mildly distended but otherwise normal as imaged. Skeletal structures: No lytic or blastic lesions are seen. 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 IMPRESSION: 1. There are no acute infectious or inflammatory findings in the abdomen or pelvis. 2. Airspace consolidation is seen at the right lung base is typical for pneumonia. Clinical correlation will be required and radiographic follow-up to resolution is recommended. 3. 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 4. Advanced coronary artery calcification. 5. Colonic diverticulosis without CT evidence of acute diverticulitis. 6. Additional findings as above. ACT 112: Negative or not required by law. Electronically signed by: Navin Yip M.D. 01/02/2021 5:16 PM Chest CTA 01/02/21 16:16 CT ANGIOGRAM OF THE CHEST CLINICAL HISTORY: hypoxic recent travel COMPARISON STUDY: 03/11/2014 TECHNIQUE: Following the IV administration of 118 mL of Optiray, CT angiogram of the thorax was performed from the thoracic inlet to the lung bases utilizing the pulmonary embolus protocol. Images are reviewed in the axial, sagittal, and coronal planes. IV contrast was administered without complication. MIP imaging was performed. A dose lowering technique was utilized adhering to the principles of ALARA. CT DOSE: 1693.26 mGycm FINDINGS: There is adequate opacification of the main pulmonary artery. Evaluation of peripheral branches of pulmonary artery is limited due to respiratory motion artifact. No evidence of acute central pulmonary embolus. Pulmonary artery is normal in caliber. No evidence of right heart strain. Mild four-chamber cardiomegaly. No evidence of pericardial effusion. Severe coronary calcifications are seen. There is no axillary, supra clavicle or internal mammary lymphadenopathy seen. There is mild enlargement of mediastinal lymph nodes measuring up to 1.4 cm in diameter. Right hilar lymph node is measuring 2.0 cm in size. Visualized portion of thyroid gland shows no evidence of acute abnormalities. Mild diffuse thickening of nasopharyngeal wall is seen. Aorta is normal in caliber with few scattered calcifications of its wall. Tracheobronchial tree is patent. This study is acquired during partial expiratory phase, evaluation of lung parenchyma is limited due to prominent respiratory motion artifact. There are mixed areas of groundglass attenuation with patchy areas of conso lidation and septal thickening within peripheral aspect of the right upper and lower lobes. No pleural effusion is seen. Limited evaluation of upper abdominal viscera shows no evidence of acute abnormalities. Evaluation of osseous structures shows minimal degenerative changes of the spine. IMPRESSION: 1. No evidence of central pulmonary embolus. Evaluation of peripheral branches of pulmonary artery is limited due to motion artifact. 2. Mixed groundglass and consolidative opacities associated with septal thickening at the peripheral aspect of the right upper and lower lobes might represent atypical pneumonia versus other etiology. Short-term follow-up with CT of the chest without IV contrast in 4-6 weeks is recommended to document resolution. 3. Mild mediastinal lymphadenopathy, likely reactive. 4. Atherosclerosis. ACT 112: Positive. There are findings on this exam that require communication between the performing entity and the patient following Patient Test Result Information Act ([place] Act 112) guidelines. The above report was generated using voice recognition software. It may contain grammatical, syntax or spelling errors. Electronically signed by: Ade Whittaker DO 01/02/2021 5:10 PM Discharge Plan Visit Data Chief Complaint: Diarrhea Stated Complaint: COUGH,SOB,DIARRHEA ED Provider: Osiel Melendez Discharge Problem: COVID-19, Weakness, Diarrhea Forms Stand Alone Forms: My [facility] Prescriptions Prescriptions: No Action clopidogrel 75 mg Tablet 75 mg PO QAM Qty: 30 RF: 11 aspirin 81 mg Tablet,Delayed Release (Dr/Ec) 81 mg PO QAM Qty: 30 RF: 11 losartan 25 mg Tablet 25 mg PO QAM Qty: 30 RF: 11 nitroglycerin [Nitrostat] 0.4 mg Tablet, Sublingual 0.4 mg sublingual PRN PRN (Reason: chest pain) Qty: 30 RF: 11 ezetimibe [Zetia] 10 mg Tablet 10 mg PO QAM Qty: 30 RF: 11 metoprolol succinate 50 mg tablet extended release 24 hr 25 mg PO DAILY RF: 0 simvastatin 40 mg tablet 40 mg PO HS RF: 0 allopurinol 300 mg tablet 300 mg PO HS RF: 0 furosemide 20 mg tablet 20 mg PO WK RF: 0 Vitamin C 100 mg Tablet 100 mg PO DAILY RF: 0 vitamin B complex Tablet 1 tab PO DAILY RF: 0 Discharge Problem: Diarrhea Qualifiers: Diarrhea type: unspecified type Qualified Code(s): R19.7 - Diarrhea, unspecified
--- NOTE | 2021-01-02 18:29 | History & Physical Report ---
Date of Service January 02, 2021 Assessment & Plan (1) COVID-19: Due to hypoxia with exertion and pulseox 90-92% at rest, pt meets criteria for treatment with both dexamethasone and remdesivir. Discussed both with patient and his - they are agreeable to both treatments and to admission - Continue Dexamethasone 6 mg daily - Starting remdesivir - daily BMP and LFTs ordered to monitor - Check procalcitonin - if elevated, will consider addition of antibiotics but suspect pneumonia more likely related to COVID-19 - Baseline CRP - Airborne precautions (2) CAD (coronary artery disease): - Monitor on telemetry - no symptoms of unstable angina at present - Troponin is negative on presentation - Repeat EKG with any chest pain - Continue aspirin/plavix, beta-jamari (3) Diarrhea: Suspect due to #1 - Encourage oral hydration - received one liter of IVF in ED, will run additional liter at 80 ml/hr - Stool for C. diff ordered in ED and still pending (4) Avascular necrosis of bone: Noted on CT abd/pel - Consult ortho for recommendations - Will continue dexamethasone for now due to compromised respiratory status (5) Dyslipidemia: - Continue statin therapy (6) HTN (hypertension): - Continue home meds Pt seen and reviewed with attending physician, Dr. Zambrano. Plan of care discussed and as outlined above. Code Status: Full Code DVT Prophylaxis: Lovenox 40 mg subQ BID Zhang Brandon PA-C History of Present Illness Chief Complaint: diarrhea Primary Care Provider: Rohan Mckenzie DO This is a 65 y/o male with a PMH of CAD s/p angioplasty/stent, prior ID, dyslipidemia, HTN, gout, chronic stasis dermatitis w/ prior neuoropathic foot ulcer, and prior squamous cell oral cancer who presents to the ED with diarrhea and cough x 4-5 days. Pt reports recent travel to [place] for a month long vacation having returned on Wednesday (six days ago). [place] tired Wednesday and Wednesday but attributed to travel. His did feel ill for those days but then felt better on Wednesday. However, on Wednesday, pt developed a cough then diarrhea. Cough is productive at times, but no hemoptysis. Denies significant chest tightness or shortness of breath. His main complaint is the ongoing diarrhea and loss of appetite. Diarrhea may be several times a day or only once. He has been taking pepto intermittently but this only seems to provide transient relief. Stools have been dark in color but no bright blood. Denies significant abdominal pain, nausea or vomiting. His taste has been diminished but no loss of smell. Not eating much as oral intake may make diarrhea worse. Denies chest pain, palpitations, fevers, chills, sweats. He has noted significant fatigue. Today, he went to urgent care for evaluation and was noted to be hypoxic in the upper 80s, especially with exertion. Upon arrival to triage in the ED his pulseox was in the upper 80s although improves to 90-92% with rest. Allergies Allergy/AdvReac Type Severity Reaction Status Date / Time No Known Allergies Allergy Unknown ` Verified 01/02/21 16:55 Home Medications Medication Instructions Recorded Confirmed Type aspirin 81 mg PO QAM #30 tab 02/17/20 01/02/21 Rx clopidogrel 75 mg PO QAM #30 tab 02/17/20 01/02/21 Rx ezetimibe [Zetia] 10 mg PO QAM #30 tab 02/17/20 01/02/21 Rx nitroglycerin [Nitrostat] 0.4 mg SUBLINGUAL PRN PRN #30 tab 02/17/20 01/02/21 Rx allopurinol 300 mg PO HS 01/02/21 01/02/21 History ascorbic acid (vitamin C) [Vitamin 500 mg PO DAILY 01/02/21 01/02/21 History C] furosemide 20 mg PO WK 01/02/21 01/02/21 History losartan 100 mg PO DAILY 01/02/21 01/02/21 History metoprolol succinate 25 mg PO DAILY 01/02/21 01/02/21 History simvastatin 40 mg PO HS 01/02/21 01/02/21 History vitamin B complex 1 tab PO DAILY 01/02/21 01/02/21 History Past Med/Surg History Medical History CAD (coronary artery disease) Dyslipidemia History of tobacco abuse Hypertension Ischemic cardiomyopathy Mouth cancer Neuropathic foot ulcer Nonsustained ventricular tachycardia NSTEMI (non-ST elevated myocardial infarction) Total of 4. 1996 Circumflex, 02/16/2020 Proximal LAD, 03/07/2020 Proximal and Mid RCA NSVT (nonsustained ventricular tachycardia) Surgical History H/O heart artery stent History of appendectomy History of cataract extraction History of colonoscopy with polypectomy multiple - prior villous adenoma in 2007 History of oral surgery excision of right mouth floor lesion, right submandibular gland, suprahyoid lymphadenectomy - 2016 Stented coronary artery Family History Father Heart disease Prostate cancer Brother Heart disease Social History Smoking Status: Never smoker Second Hand Exposure: No; Do You Dip or Chew Tobacco: No; Tobacco Cessation Education Requested by Patient: No Hx Alcohol Use: No Hx Substance Use: No Preferred Language: Nepali Communication Ability: Effective Coil Builder Required: No Beliefs That Will Affect Care: None Current Living Situation: Spouse Other Information That Helps Us Care for You: No Feels Safe at Home: Yes Safety Concerns: Feels Safe At This Time Assistive Devices: Glasses Review of Systems Review of Systems: All systems reviewed & are unremarkable except as noted in HPI & below Constitutional: + fatigue and + anorexia; no fever, no chills and no sweats Eyes: no diplopia and no worsening vision Ear, Nose, Mouth, Throat: no nasal congestion, no nasal discharge, no sore throat and no dysphagia Respiratory: as per Subjective / HPI and + cough; no hemoptysis and no wheezing Cardiovascular: no chest pain, no palpitations, no lightheadedness and no edema Gastrointestinal: + diarrhea/loose stools; no abdominal pain, no nausea, no vomiting and no blood in stools Genitourinary: no dysuria, no difficulty urinating and no hematuria Musculoskeletal: + muscle weakness; no back pain and no neck pain Integumentary: no rash and no urticaria Neurologic: + generalized weakness; no tremor(s), no syncope, no headache(s) and no confusion Psychiatric: no depression and no anxiety Physical Exam Constitutional: WD/WN, vitals as above no acute distress Eyes: + anicteric sclerae Neck: trachea midline Respiratory: no respiratory distress and no labored breathing Auscultation: lungs clear to auscultation bilaterally; no rales, no rhonchi and no wheezes Cardiovascular: Rate/Rhythm: regular rate and regular rhythm Heart Sounds: no gallop, no murmur and no cardiac rub Vessels: dorsalis pedis pulses present and radial pulses present Extremities: no pedal edema Gastrointestinal (Abdomen): Inspection/Auscultation: normal bowel sounds; abdomen not distended Percussion/Palpation: abdomen soft; abdomen nontender Musculoskeletal: Head/Neck/Chest: normocephalic, head atraumatic and neck supple Extremities: no cyanosis and no clubbing Skin: no rashes, warm and dry Neurologic: no focal motor deficits and not confused Psychiatric: A+Ox3, euthymic affect Results & Data Results & Data ([facility]) Vital Signs (Past 12 Hours) Vital Signs Temp Pulse Resp BP Pulse Ox 01/02/21 18:00 59 L 18 94 01/02/21 17:31 58 L 17 93 01/02/21 17:30 55 L 24 152/83 H 93 01/02/21 17:00 56 L 26 H 147/78 H 95 01/02/21 16:56 61 21 128/109 H 95 01/02/21 16:41 68 24 91 01/02/21 16:01 53 L 26 H 93 01/02/21 16:00 51 L 26 H 127/62 93 01/02/21 15:31 56 L 26 H 94 01/02/21 15:30 56 L 21 120/61 94 01/02/21 15:01 59 L 25 H 91 01/02/21 15:00 62 21 102/58 L 91 01/02/21 14:56 61 18 92 01/02/21 14:51 64 18 93 01/02/21 14:47 60 18 119/61 92 01/02/21 14:37 36.4 C L 74 20 88 L Laboratory Results Laboratory Results - last 24 hr 01/02/21 01/02/21 01/02/21 15:04 15:04 15:04 WBC 5.51 RBC 4.82 Hgb 15.6 Hct 44.5 MCV 92.3 MCH 32.4 MCHC 35.1 RDW Std Deviation 47.3 H RDW Coeff of Sim 14.0 Plt Count 81 L MPV 10.3 Immature Gran % (Auto) 0.4 Neut % (Auto) 74.7 Lymph % (Auto) 13.8 [place] % (Auto) 10.7 Eos % (Auto) 0.2 Baso % (Auto) 0.2 Neut # (Auto) 4.12 Lymph # (Auto) 0.76 L [place] # (Auto) 0.59 Eos # (Auto) 0.01 Baso # (Auto) 0.01 Immature Gran # (Auto) 0.02 APTT 28.3 PTT Ratio 1.1 D-Dimer 2920 H* Sodium 132 L Potassium 4.2 Chloride 96 L Carbon Dioxide 27 Anion Gap 9.0 BUN 17 Creatinine 1.22 Est Cr Clr Drug Dosing 76.3 Est GFR ( Amer) 71.7 Est GFR (Non-Af Amer) 61.8 BUN/Creatinine Ratio 13.8 Glucose 111 H Calcium 9.1 Total Bilirubin 0.9 AST 58 H ALT 46 Alkaline Phosphatase 77 Troponin I 0.019 C-Reactive Protein Total Protein 7.4 Albumin 3.3 L Globulin 4.1 H Albumin/Globulin Ratio 0.8 L Lipase 486 H Procalcitonin COVID-19 Eval Order SARS-CoV-2 (PCR) 01/02/21 01/02/21 01/02/21 15:04 15:05 15:19 WBC RBC Hgb Hct MCV MCH MCHC RDW Std Deviation RDW Coeff of Sim Plt Count MPV Immature Gran % (Auto) Neut % (Auto) Lymph % (Auto) [place] % (Auto) Eos % (Auto) Baso % (Auto) Neut # (Auto) Lymph # (Auto) [place] # (Auto) Eos # (Auto) Baso # (Auto) Immature Gran # (Auto) APTT PTT Ratio D-Dimer Sodium Potassium Chloride Carbon Dioxide Anion Gap BUN Creatinine Est Cr Clr Drug Dosing Est GFR ( Amer) Est GFR (Non-Af Amer) BUN/Creatinine Ratio Glucose Calcium Total Bilirubin AST ALT Alkaline Phosphatase Troponin I C-Reactive Protein Pending Total Protein Albumin Globulin Albumin/Globulin Ratio Lipase Procalcitonin Pending COVID-19 Eval Order Covid19 at [facility] SARS-CoV-2 (PCR) 01/02/21 15:19 WBC RBC Hgb Hct MCV MCH MCHC RDW Std Deviation RDW Coeff of Sim Plt Count MPV Immature Gran % (Auto) Neut % (Auto) Lymph % (Auto) [place] % (Auto) Eos % (Auto) Baso % (Auto) Neut # (Auto) Lymph # (Auto) [place] # (Auto) Eos # (Auto) Baso # (Auto) Immature Gran # (Auto) APTT PTT Ratio D-Dimer Sodium Potassium Chloride Carbon Dioxide Anion Gap BUN Creatinine Est Cr Clr Drug Dosing Est GFR ( Amer) Est GFR (Non-Af Amer) BUN/Creatinine Ratio Glucose Calcium Total Bilirubin AST ALT Alkaline Phosphatase Troponin I C-Reactive Protein Total Protein Albumin Globulin Albumin/Globulin Ratio Lipase Procalcitonin COVID-19 Eval Order SARS-CoV-2 (PCR) POSITIVE A* Diagnostic Findings Chest X-ray 01/02/21 - IMPRESSION: No significant change compared to the prior study. No acute process. Stable mild volume loss and chronic interstitial thickening at the right lung base. Chest CTA 01/02/21 - IMPRESSION: 1. No evidence of central pulmonary embolus. Evaluation of peripheral branches of pulmonary artery is limited due to motion artifact. 2. Mixed groundglass and consolidative opacities associated with septal thickening at the peripheral aspect of the right upper and lower lobes might represent atypical pneumonia versus other etiology. Short-term follow-up with CT of the chest without IV contrast in 4-6 weeks is recommended to document resolution. 3. Mild mediastinal lymphadenopathy, likely reactive. 4. Atherosclerosis. CT Abd/Pel 01/02/21 - IMPRESSION: 1. There are no acute infectious or inflammatory findings in the abdomen or pelvis. 2. Airspace consolidation is seen at the right lung base is typical for pneumonia. Clinical correlation will be required and radiographic follow-up to resolution is recommended. 3. 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 4. Advanced coronary artery calcification. 5. Colonic diverticulosis without CT evidence of acute diverticulitis. 6. Additional findings as above. Medications Administered Discontinued Medications Dexamethasone Sodium Phosphate (DexamethasonePf 10 Mg/Ml Vial) 6 mg IV NOW ONE Stop: 01/02/21 16:47 Last Admin: 01/02/21 16:57 Dose: 6 mg Documented by: [id number] Sodium Chloride (Nss 1000ml) 1,000 mls @ 999 mls/hr IV .Q1H1M ONE Stop: 01/02/21 15:58 Last Infusion: 01/02/21 16:33 Dose: 999 mls/hr Documented by: [id number] Admin: 01/02/21 15:32 Dose: 999 mls/hr Documented by: [id number] Ioversol (Optiray 320 125ml) 118 ml IV ONCE ONE Stop: 01/02/21 16:32 Last Admin: 01/02/21 16:33 Dose: 118 ml Documented by: [id number] Code Status & VTE Plan VTE Prophylaxis Plan VTE Prophylaxis will be ordered: Yes Supervising Physician Co-Signing Physician Notes I have seen and examined the patient and have discussed the case with the provider above. I agree with the assessment and plan as stated. 65 yo M vaccinated from COVID already, presented with hypoxia that resolved in the ER. Oxygen saturation still 92% on room air. Cont steroids and antivral therapy. Noted AVN of hip. Patient reports long-staning hip pain. Cont steroids for now and request recommendation from Orthopedics in am. Physical exam as above. Cont plan for treatment above and supportive care for the diarrhea. He reports only two episodes in the last 12-24 hours, and has been taking Pepto-Bismol. DO Juan Manuel (1) Diarrhea Diarrhea type: unspecified type Qualified Code(s): R19.7 - Diarrhea, unspecified (2) HTN (hypertension) Hypertension type: essential hypertension Qualified Code(s): I10 - Essential (primary) hypertension
[2021-01-02] MEDS ORDERED: SODIUM CHLORIDE 0.9% 1000ML 1,000 ML IV SCH (22:16)
[2021-01-02] MEDS ORDERED: guaiFENesin/CODEINE 100MG/10MG 5ML UDC PO PRN (22:16)
[2021-01-02] MEDS ORDERED: REMDESIVIR 200 MG in SODIUM CHLORIDE 0.9% 210 ML IV STA (22:27)
[2021-01-02] MEDS: SIMVASTATIN 40 MG TAB PO SCH (23:14)
[2021-01-02] MEDS: allopurinoL 300 MG TAB PO SCH (23:14)
[2021-01-02] MEDS: ENOXAPARIN INJ 40 MG/0.4 ML SYR SQ SCH (23:15)
[2021-01-03] MEDS: SODIUM CHLORIDE 0.9% 10ML FLUSH IV SCH ×2 (00:17→21:33)
--- NOTE | 2021-01-03 07:09 | Orthopedic Progress Note ---
Date of Service January 03, 2021 Assessment & Plan (1) Avascular necrosis of bone: Did not see patient since he is COVID 19 positive and AVN is chronic condition. Please follow-up in my clinic as an outpatient in 3 weeks, at which point hopefully he has recovered from his COVID. Thank you. Admission and Anticipated Discharge Date Admission Date: January 02, 2021 Results & Data ([facility]) Vital Signs (Past 12 Hours) Vital Signs Temp Pulse Pulse Resp BP BP Pulse Ox 01/03/21 05:32 36.8 C 49 L 14 135/70 92 01/02/21 22:27 53 L 01/02/21 22:25 36.7 C 60 20 148/76 H 93 01/02/21 22:16 59 L 01/02/21 20:31 54 L 25 H 93 01/02/21 20:30 55 L 23 172/92 H 93 01/02/21 20:21 124 H 165/78 H 01/02/21 20:00 55 L 20 93 01/02/21 19:30 56 L 17 95
[2021-01-03] MEDS: ASPIRIN 81 MG ECTAB PO SCH (08:51)
[2021-01-03] MEDS: CLOPIDOGREL BISULFATE 75 MG TAB PO SCH (08:51)
[2021-01-03] MEDS: EZETIMIBE 10 MG TABLET PO SCH (08:51)
[2021-01-03] MEDS: METOPROLOL SUCC 25MG EXT REL TAB PO SCH (08:52)
[2021-01-03] MEDS ORDERED: dexAMETHasone 6 MG in SYRINGE 0 ML IV SCH (09:00)
[2021-01-03] MEDS: LOSARTAN POTASSIUM 50 MG TAB PO SCH (10:08)
[2021-01-03] MEDS ORDERED: LOPERAMIDE HCL 2 MG CAP PO PRN (11:07)
--- NOTE | 2021-01-03 11:09 | Hospitalist Progress Note ---
Date of Service January 03, 2021 Assessment & Plan (1) COVID-19: Continues on the steroids and remdesivir today Hypoxia resolved Symptoms improving including diarrhea. Cont supportive care. (2) CAD (coronary artery disease): chronic, stable cont current home regimen. (3) Diarrhea: 2/2 covid-cont imodium. Improving. Avoid dairy (4) Avascular necrosis of bone: Cont with dexamethasone for now, but will give limited course. Per ortho recs, followup in office for further evaluation and workup post-infection. (5) Dyslipidemia: - Continue statin therapy (6) HTN (hypertension): - Continue home meds (7) DVT prophylaxis: Lovenox Full COde Dispo-to home in am DO Rock Raya Hospitalist Admission and Anticipated Discharge Date Admission Date: January 02, 2021 Subjective 65 yo M with COVID infection doing better today hypoxia appears to have resolved still wtih diarrhea improved with imodium tolerating PO Review of Systems Review of Systems: All systems reviewed & are unremarkable except as noted in Subjective Physical Exam Physical Exam: CONSTITUTIONAL: WNWD, vitals as above, generally well- appearing EYES: normal conjunctivae, no scleral icterus ENT: external ear and nose normal, oropharynx clear, MMM RESPIRATORY: clear to auscultation bilaterally, no crackles, rales or wheezes, normal respiratory effort CARDIOVASCULAR: regular rate and rhythm, S1 and 2 heard without murmurs, gallops or rubs, no JVD, no peripheral edema GASTROINTESTINAL: soft, nontender, nondistended MUSCULOSKELETAL: strength 5/5 throughout, head is normocephalic and atraumatic SKIN: warm and dry NEUROLOGIC: CN 2-12 grossly intact, no sensory deficit, normal cognition, normal speech, no tremor PSYCHIATRIC: alert cooperative and oriented to person, place and time. Results & Data Results & Data ([facility]) Vital Signs (Past 12 Hours) Vital Signs Temp Pulse Pulse Resp BP Pulse Ox 01/03/21 08:09 36.9 C 60 16 165/77 H 90 01/03/21 07:21 56 L 01/03/21 05:32 36.8 C 49 L 14 135/70 92 Laboratory Results Short CBC 01/02/21 Range/Units 15:04 WBC 5.51 (4.8-10.8) K/uL Hgb 15.6 (14.0-18.0) g/dL Hct 44.5 (42-52) % Plt Count 81 L (130-400) K/uL BMP 01/02/21 15:04 Sodium 132 L Potassium 4.2 Chloride 96 L Carbon Dioxide 27 BUN 17 Creatinine 1.22 Glucose 111 H Calcium 9.1 Cardiac Enzymes 01/02/21 Range/Units 15:04 Troponin I 0.019 (0-0.045) ng/ml Liver Function 01/02/21 Range/Units 15:04 Total Bilirubin 0.9 (0.2-1) mg/dl AST 58 H (15-37) U/L ALT 46 (12-78) U/L Alkaline Phosphatase 77 (45-117) U/L Albumin 3.3 L (3.4-5.0) gm/dl Medications Administered Current Inpatient Medications Allopurinol (Allopurinol 300 Mg Tab) 300 mg PO HS [facility] Stop: 02/01/21 22:15 Last Admin: 01/02/21 23:14 Dose: 300 mg Documented by: Aspirin (Aspirin 81 Mg Ectab) 81 mg PO [facility] Stop: 02/02/21 08:59 Last Admin: 01/03/21 08:51 Dose: 81 mg Documented by: Clopidogrel Bisulfate (Clopidogrel Bisulfate 75 Mg Tab) 75 mg PO [facility] Stop: 02/02/21 08:59 Last Admin: 01/03/21 08:51 Dose: 75 mg Documented by: Ezetimibe ([facility]imibe 10 Mg Tablet) [facility] Stop: 02/02/21 08:59 Last Admin: 01/03/21 08:51 Dose: 10 mg Documented by: Enoxaparin Sodium (Enoxaparin Inj 40 Mg/0.4 Ml Syr) 40 mg SQ Q12H [facility] Stop: 02/01/21 22:59 Last Admin: 01/02/21 23:15 Dose: 40 mg Documented by: Guaifenesin/Codeine Phosphate (Guaifenesin/Codeine 100mg/10mg 5ml Udc) 5 ml PO Q6H PRN PRN Reason: Cough Stop: 02/01/21 22:15 Dexamethasone 6 mg/ Syringe 1.5 mls @ 1 mls/min IV DAILY [facility] Stop: 01/13/21 08:59 Last Admin: 01/03/21 08:51 Dose: 1 mls/min Documented by: Remdesivir 100 mg/ Sodium (Chloride) 250 mls @ 250 mls/hr IV Q24H [facility]; Protocol Stop: 01/06/21 20:59 Loperamide HCl (Loperamide Hcl 2 Mg Cap) 2 mg PO UD PRN PRN Reason: diarrhea Stop: 02/02/21 11:06 Losartan Potassium (Losartan Potassium 50 Mg Tab) 100 mg PO DAILY [facility] Stop: 02/02/21 08:59 Last Admin: 01/03/21 10:08 Dose: 100 mg Documented by: Metoprolol Succinate (Metoprolol Succ 25mg Ext Rel Tab) 25 mg PO DAILY [facility] Stop: 02/02/21 08:59 Last Admin: 01/03/21 08:52 Dose: 25 mg Documented by: Simvastatin (Simvastatin 40 Mg Tab) 40 mg PO HS [facility] Stop: 02/01/21 22:15 Last Admin: 01/02/21 23:14 Dose: 40 mg Documented by: Sodium Chloride (Sodium Chloride 0.9% 10ml Flush) 30 ml IV Q24H [facility] Stop: 01/07/21 00:46 Last Admin: 01/03/21 00:17 Dose: Not Given Documented by: (1) Diarrhea Diarrhea type: unspecified type Qualified Code(s): R19.7 - Diarrhea, unspecified (2) HTN (hypertension) Hypertension type: essential hypertension Qualified Code(s): I10 - Essential (primary) hypertension
[2021-01-03] MEDS: ENOXAPARIN INJ 40 MG/0.4 ML SYR SQ SCH ×2 (12:11→22:42)
[2021-01-03 13:40] LABS: Albumin Level 3.2 gm/dl (3.4-5.0); BUN Creatinine Ratio 18.1 (10-20); Bilirubin Direct 0.4 mg/dl (0-0.2); Bilirubin,Total 0.9 mg/dl (0.2-1); Creatinine Clr Calc Pharmacy 99.1 ml/min; Est GFR (African American) 102.1 ml/min; Est GFR (Non-African American) 88.1 ml/min; Potassium 4.4 mmol/L (3.5-5.1); Total Protein 6.6 gm/dl (6.4-8.2)
[2021-01-03] MEDS: REMDESIVIR 100 MG in SODIUM CHLORIDE 0.9% 230 ML IV SCH (20:21)
[2021-01-03] MEDS: allopurinoL 300 MG TAB PO SCH (20:22)
[2021-01-03] MEDS: SIMVASTATIN 40 MG TAB PO SCH (20:22)
[2021-01-04 09:42] LABS: BUN Creatinine Ratio 19.9 (10-20); Bilirubin Direct 0.2 mg/dl (0-0.2); Bilirubin,Total 0.7 mg/dl (0.2-1); Calcium 8.9 mg/dl (8.5-10.1); Creatinine Clr Calc Pharmacy 106.1 ml/min; Est GFR (Non-African American) 91.4 ml/min; Potassium 4.3 mmol/L (3.5-5.1); Total Protein 6.7 gm/dl (6.4-8.2)
[2021-01-04] MEDS: ASCORBIC ACID 500 MG TAB PO SCH (09:42)
[2021-01-04] MEDS: dexAMETHasone 4 MG TAB PO SCH (09:42)
[2021-01-04] MEDS: METOPROLOL SUCC 25MG EXT REL TAB PO SCH (09:44)
[2021-01-04] MEDS: LOSARTAN POTASSIUM 50 MG TAB PO SCH (09:44)
[2021-01-04] MEDS: CLOPIDOGREL BISULFATE 75 MG TAB PO SCH (09:44)
[2021-01-04] MEDS: ASPIRIN 81 MG ECTAB PO SCH (09:44)
[2021-01-04] MEDS: EZETIMIBE 10 MG TABLET PO SCH (09:44)
[2021-01-04] MEDS: ENOXAPARIN INJ 40 MG/0.4 ML SYR SQ SCH ×2 (12:28→21:23)
--- NOTE | 2021-01-04 16:27 | Hospitalist Progress Note ---
Date of Service January 04, 2021 Assessment & Plan (1) COVID-19: Continues on the steroids and remdesivir today Hypoxia intermittent Diarrhea. Cont supportive care. (2) CAD (coronary artery disease): chronic, stable cont current home regimen. (3) Diarrhea: 2/2 covid-cont imodium. Resolved, Avoid dairy (4) Avascular necrosis of bone: Cont with dexamethasone for now, but will give limited course. Per ortho recs, followup in office for further evaluation and workup post-infection. (5) Dyslipidemia: - Continue statin therapy (6) HTN (hypertension): - Continue home meds (7) DVT prophylaxis: Lovenox Full COde Dispo-to home in am DO Rock Raya Hospitalist Admission and Anticipated Discharge Date Admission Date: January 02, 2021 Subjective 65 yo M with COVID infection Persistent hypoxia at rest this morning. Diarrhea appears to have resolved. Patient tolerating p.o., afebrile, feels well, but not quite back to baseline. Spoke with daughter per phone and updated her with the patient at bedside. All questions were answered to her satisfaction. Review of Systems Review of Systems: All systems reviewed & are unremarkable except as noted in Subjective Physical Exam Physical Exam: CONSTITUTIONAL: WNWD, vitals as above, generally well- appearing EYES: normal conjunctivae, no scleral icterus ENT: external ear and nose normal, oropharynx clear, MMM RESPIRATORY: clear to auscultation bilaterally, no crackles, rales or wheezes, normal respiratory effort CARDIOVASCULAR: regular rate and rhythm, S1 and 2 heard without murmurs, gallops or rubs, no JVD, no peripheral edema GASTROINTESTINAL: soft, nontender, nondistended MUSCULOSKELETAL: strength 5/5 throughout, head is normocephalic and atraumatic SKIN: warm and dry NEUROLOGIC: CN 2-12 grossly intact, no sensory deficit, normal cognition, normal speech, no tremor PSYCHIATRIC: alert cooperative and oriented to person, place and time. Results & Data Results & Data ([facility]) Vital Signs (Past 12 Hours) Vital Signs Temp Pulse Resp BP Pulse Ox 01/04/21 14:42 36.4 C L 22 144/76 H 94 01/04/21 12:29 36.6 C 53 L 18 153/78 H 92 01/04/21 08:18 36.6 C 61 18 156/72 H 90 Laboratory Results BMP 01/04/21 08:44 Sodium 136 Potassium 4.3 Chloride 102 Carbon Dioxide 31 BUN 17 Creatinine 0.85 Glucose 115 H Calcium 8.9 Liver Function 01/04/21 Range/Units 08:44 Total Bilirubin 0.7 (0.2-1) mg/dl Direct Bilirubin 0.2 (0-0.2) mg/dl AST 43 H (15-37) U/L ALT 48 (12-78) U/L Alkaline Phosphatase 69 (45-117) U/L Albumin 3.0 L (3.4-5.0) gm/dl Medications Administered Current Inpatient Medications Allopurinol (Allopurinol 300 Mg Tab) 300 mg PO HS [facility] Stop: 02/01/21 22:15 Last Admin: 01/03/21 20:22 Dose: 300 mg Documented by: Ascorbic Acid (Ascorbic Acid 500 Mg Tab) 500 mg PO DAILY [facility] Stop: 02/03/21 08:59 Last Admin: 01/04/21 09:42 Dose: 500 mg Documented by: Aspirin (Aspirin 81 Mg Ectab) 81 mg PO [facility] Stop: 02/02/21 08:59 Last Admin: 01/04/21 09:44 Dose: 81 mg Documented by: Clopidogrel Bisulfate (Clopidogrel Bisulfate 75 Mg Tab) 75 mg PO [facility] Stop: 02/02/21 08:59 Last Admin: 01/04/21 09:44 Dose: 75 mg Documented by: Dexamethasone (Dexamethasone 4 Mg Tab) 6 mg PO DAILY [facility] Stop: 02/03/21 08:59 Last Admin: 01/04/21 09:42 Dose: 6 mg Documented by: Ezetimibe ([facility]imibe 10 Mg Tablet) [facility] Stop: 02/02/21 08:59 Last Admin: 01/04/21 09:44 Dose: 10 mg Documented by: Enoxaparin Sodium (Enoxaparin Inj 40 Mg/0.4 Ml Syr) 40 mg SQ Q12H [facility] Stop: 02/01/21 22:59 Last Admin: 01/04/21 12:28 Dose: 40 mg Documented by: Guaifenesin/Codeine Phosphate (Guaifenesin/Codeine 100mg/10mg 5ml Udc) 5 ml PO Q6H PRN PRN Reason: Cough Stop: 02/01/21 22:15 Remdesivir 100 mg/ Sodium (Chloride) 250 mls @ 250 mls/hr IV Q24H [facility]; Protocol Stop: 01/06/21 20:59 Last Infusion: 01/03/21 21:32 Dose: Infused Documented by: Loperamide HCl (Loperamide Hcl 2 Mg Cap) 2 mg PO UD PRN PRN Reason: diarrhea Stop: 02/02/21 11:06 Last Admin: 01/03/21 12:12 Dose: 2 mg Documented by: Losartan Potassium (Losartan Potassium 50 Mg Tab) 100 mg PO DAILY [facility] Stop: 02/02/21 08:59 Last Admin: 01/04/21 09:44 Dose: 100 mg Documented by: Metoprolol Succinate (Metoprolol Succ 25mg Ext Rel Tab) 25 mg PO DAILY [facility] Stop: 02/02/21 08:59 Last Admin: 01/04/21 09:44 Dose: 25 mg Documented by: Simvastatin (Simvastatin 40 Mg Tab) 40 mg PO HS [facility] Stop: 02/01/21 22:15 Last Admin: 01/03/21 20:22 Dose: 40 mg Documented by: Sodium Chloride (Sodium Chloride 0.9% 10ml Flush) 30 ml IV Q24H [facility] Stop: 01/07/21 00:46 Last Admin: 01/03/21 21:33 Dose: 30 ml Documented by: (1) Diarrhea Diarrhea type: unspecified type Qualified Code(s): R19.7 - Diarrhea, unspecified (2) HTN (hypertension) Hypertension type: essential hypertension Qualified Code(s): I10 - Essential (primary) hypertension
[2021-01-04] MEDS: REMDESIVIR 100 MG in SODIUM CHLORIDE 0.9% 230 ML IV SCH (21:21)
[2021-01-04] MEDS: allopurinoL 300 MG TAB PO SCH (21:22)
[2021-01-04] MEDS: SIMVASTATIN 40 MG TAB PO SCH (21:22)
[2021-01-04] MEDS: SODIUM CHLORIDE 0.9% 10ML FLUSH IV SCH (22:28)
[2021-01-05 08:07] LABS: Hematocrit (blood only) 42.8 % (42-52); Hemoglobin 14.4 g/dL (14.0-18.0); Mean Corpuscular Hemoglobin 31.9 pg (25-34); Mean Corpuscular Hgb Conc 33.6 g/dL (32-36); Mean Corpuscular Volume 94.9 fL (80-100); Mean Platelet Volume 9.7 fL (7.4-10.4); Platelet Count 124 K/uL (130-400); RDW Coefficient of Variation 14.1 % (11.5-14.5); Red Blood Count 4.51 M/uL (4.7-6.1); White Blood Count 6.36 K/uL (4.8-10.8)
[2021-01-05 08:29] LABS: Albumin Level 2.9 gm/dl (3.4-5.0); BUN Creatinine Ratio 23.3 (10-20); Bilirubin Direct 0.2 mg/dl (0-0.2); C Reactive Protein 1.39 mg/dl (0-0.29); Creatinine Clr Calc Pharmacy 115.7 ml/min; Est GFR (African American) 109.8 ml/min; Est GFR (Non-African American) 94.7 ml/min; Potassium 4.3 mmol/L (3.5-5.1)
[2021-01-05 08:32] LABS: Bilirubin,Total 0.7 mg/dl (0.2-1); Total Protein 6.4 gm/dl (6.4-8.2)
[2021-01-05] MEDS: LOSARTAN POTASSIUM 50 MG TAB PO SCH (09:24)
[2021-01-05] MEDS: EZETIMIBE 10 MG TABLET PO SCH (09:25)
[2021-01-05] MEDS: ASCORBIC ACID 500 MG TAB PO SCH (09:25)
[2021-01-05] MEDS: dexAMETHasone 4 MG TAB PO SCH (09:26)
[2021-01-05] MEDS: CLOPIDOGREL BISULFATE 75 MG TAB PO SCH (09:27)
[2021-01-05] MEDS: METOPROLOL SUCC 25MG EXT REL TAB PO SCH ×2 (09:27→09:39)
[2021-01-05] MEDS: ASPIRIN 81 MG ECTAB PO SCH (09:27)
[2021-01-05] MEDS: ENOXAPARIN INJ 40 MG/0.4 ML SYR SQ SCH ×2 (11:57→22:40)
--- NOTE | 2021-01-05 15:15 | Hospitalist Progress Note ---
Date of Service January 05, 2021 Assessment & Plan (1) COVID-19: Continues on the steroids and remdesivir today Hypoxia with exertion. Diarrhea resolved. Cont supportive care. (2) CAD (coronary artery disease): chronic, stable cont current home regimen. (3) Diarrhea: 2/2 covid-cont imodium. Resolved, Avoid dairy (4) Avascular necrosis of bone: Cont with dexamethasone for now, but will give limited course. Per ortho recs, followup in office for further evaluation and workup post-infection. (5) Dyslipidemia: - Continue statin therapy (6) HTN (hypertension): - Continue home meds (7) DVT prophylaxis: Lovenox Full Code Dispo-to home in am DO [facility] Hospitalist Admission and Anticipated Discharge Date Admission Date: January 02, 2021 Subjective 65 yo M with COVID infection No SOB, No CP, diarrhea resolved Tolerating PO Requires oxygen with ambulation. Review of Systems Review of Systems: All systems reviewed & are unremarkable except as noted in Subjective Physical Exam Physical Exam: CONSTITUTIONAL: WNWD, vitals as above, generally well- appearing EYES: normal conjunctivae, no scleral icterus ENT: external ear and nose normal, oropharynx clear, MMM RESPIRATORY: clear to auscultation bilaterally, no crackles, rales or wheezes, normal respiratory effort CARDIOVASCULAR: regular rate and rhythm, S1 and 2 heard without murmurs, gallops or rubs, no JVD, no peripheral edema GASTROINTESTINAL: soft, nontender, nondistended MUSCULOSKELETAL: strength 5/5 throughout, head is normocephalic and atraumatic SKIN: warm and dry NEUROLOGIC: CN 2-12 grossly intact, no sensory deficit, normal cognition, normal speech, no tremor PSYCHIATRIC: alert cooperative and oriented to person, place and time. Results & Data Results & Data ([facility]) Vital Signs (Past 12 Hours) Vital Signs Temp Pulse Pulse Pulse Pulse Pulse Resp 01/05/21 09:30 36.4 C L 58 L 16 01/05/21 08:30 73 91 H 78 72 01/05/21 05:35 36.5 C 57 L 18 Resp Resp Resp Resp BP Pulse Ox Pulse Ox 01/05/21 09:30 145/54 H 92 01/05/21 08:30 20 22 20 16 93 01/05/21 05:35 146/80 H 91 Pulse Ox Pulse Ox Pulse Ox 01/05/21 09:30 01/05/21 08:30 86 L 90 90 01/05/21 05:35 Laboratory Results Short CBC 01/05/21 Range/Units 07:17 WBC 6.36 (4.8-10.8) K/uL Hgb 14.4 (14.0-18.0) g/dL Hct 42.8 (42-52) % Plt Count 124 L (130-400) K/uL BMP 01/05/21 07:17 Sodium 138 Potassium 4.3 Chloride 106 Carbon Dioxide 29 BUN 18 Creatinine 0.78 Glucose 101 H Calcium 9.0 Liver Function 01/05/21 Range/Units 07:17 Total Bilirubin 0.7 (0.2-1) mg/dl Direct Bilirubin 0.2 (0-0.2) mg/dl AST 31 (15-37) U/L ALT 42 (12-78) U/L Alkaline Phosphatase 63 (45-117) U/L Albumin 2.9 L (3.4-5.0) gm/dl Medications Administered Current Inpatient Medications Allopurinol (Allopurinol 300 Mg Tab) 300 mg PO [facility] Stop: 02/01/21 22:15 Last Admin: 01/04/21 21:22 Dose: 300 mg Documented by: Ascorbic Acid (Ascorbic Acid 500 Mg Tab) 500 mg PO DAILY [facility] Stop: 02/03/21 08:59 Last Admin: 01/05/21 09:25 Dose: 500 mg Documented by: Aspirin (Aspirin 81 Mg Ectab) 81 mg PO [facility] Stop: 02/02/21 08:59 Last Admin: 01/05/21 09:27 Dose: 81 mg Documented by: Clopidogrel Bisulfate (Clopidogrel Bisulfate 75 Mg Tab) [facility]: 02/02/21 08:59 Last Admin: 01/05/21 09:27 Dose: 75 mg Documented by: Dexamethasone (Dexamethasone 4 Mg Tab) 6 mg PO DAILY [facility] Stop: 02/03/21 08:59 Last Admin: 01/05/21 09:26 Dose: 6 mg Documented by: Ezetimibe (Ezetimibe 10 Mg Tablet) 10 mg PO [facility] Stop: 02/02/21 08:59 Last Admin: 01/05/21 09:25 Dose: 10 mg Documented by: Enoxaparin Sodium (Enoxaparin Inj 40 Mg/0.4 Ml Syr) 40 mg SQ Q12H [facility] Stop: 02/01/21 22:59 Last Admin: 01/05/21 11:57 Dose: 40 mg Documented by: Guaifenesin/Codeine Phosphate (Guaifenesin/Codeine 100mg/10mg 5ml Udc) 5 ml PO Q6H PRN PRN Reason: Cough Stop: 02/01/21 22:15 Remdesivir 100 mg/ Sodium (Chloride) 250 mls @ 250 mls/hr IV Q24H [facility]; Protocol Stop: 01/06/21 20:59 Last Infusion: 01/04/21 22:28 Dose: Infused Documented by: Loperamide HCl (Loperamide Hcl 2 Mg Cap) 2 mg PO UD PRN PRN Reason: diarrhea Stop: 02/02/21 11:06 Last Admin: 01/03/21 12:12 Dose: 2 mg Documented by: Losartan Potassium (Losartan Potassium 50 Mg Tab) 100 mg PO DAILY [facility] Stop: 02/02/21 08:59 Last Admin: 01/05/21 09:24 Dose: 100 mg Documented by: Metoprolol Succinate (Metoprolol Succ 25mg Ext Rel Tab) 25 mg PO DAILY [facility] Stop: 02/02/21 08:59 Last Admin: 01/05/21 09:39 Dose: Not Given Documented by: Simvastatin (Simvastatin 40 Mg Tab) 40 mg PO HS [facility] Stop: 02/01/21 22:15 Last Admin: 01/04/21 21:22 Dose: 40 mg Documented by: Sodium Chloride (Sodium Chloride 0.9% 10ml Flush) 30 ml IV Q24H [facility] Stop: 01/07/21 00:46 Last Admin: 01/04/21 22:28 Dose: 30 ml Documented by: (1) Diarrhea Diarrhea type: unspecified type Qualified Code(s): R19.7 - Diarrhea, unspecified (2) HTN (hypertension) Hypertension type: essential hypertension Qualified Code(s): I10 - Essential (primary) hypertension
[2021-01-05] MEDS ORDERED: FUROSEMIDE 20 MG in SYRINGE 0 ML IV ONE (17:30)
[2021-01-05] MEDS: REMDESIVIR 100 MG in SODIUM CHLORIDE 0.9% 230 ML IV SCH (21:08)
[2021-01-05] MEDS: SIMVASTATIN 40 MG TAB PO SCH (21:09)
[2021-01-05] MEDS: allopurinoL 300 MG TAB PO SCH (21:13)
[2021-01-05] MEDS: SODIUM CHLORIDE 0.9% 10ML FLUSH IV SCH (21:14)
[2021-01-06] MEDS: ASCORBIC ACID 500 MG TAB PO SCH (08:11)
[2021-01-06] MEDS: CLOPIDOGREL BISULFATE 75 MG TAB PO SCH (08:11)
[2021-01-06] MEDS: EZETIMIBE 10 MG TABLET PO SCH (08:11)
[2021-01-06] MEDS: ASPIRIN 81 MG ECTAB PO SCH (08:11)
[2021-01-06] MEDS: dexAMETHasone 4 MG TAB PO SCH (08:11)
[2021-01-06] MEDS: METOPROLOL SUCC 25MG EXT REL TAB PO SCH (08:12)
[2021-01-06] MEDS: LOSARTAN POTASSIUM 50 MG TAB PO SCH (08:14)
[2021-01-06 10:04] LABS: BUN Creatinine Ratio 20.1 (10-20); Calcium 8.9 mg/dl (8.5-10.1); Est GFR (African American) 94.6 ml/min; Est GFR (Non-African American) 81.6 ml/min; Potassium 3.9 mmol/L (3.5-5.1)
[2021-01-06 10:05] LABS: C Reactive Protein 1.27 mg/dl (0-0.29)
[2021-01-06] MEDS: ENOXAPARIN INJ 40 MG/0.4 ML SYR SQ SCH (12:19)
--- NOTE | 2021-01-06 14:28 | Discharge Summary ---
Date of Service January 06, 2021 Admission HPI Per Admitting Provider This is a 65 y/o male with a PMH of CAD s/p angioplasty/stent, prior SD, dyslipidemia, HTN, gout, chronic stasis dermatitis w/ prior neuoropathic foot ulcer, and prior squamous cell oral cancer who presents to the ED with diarrhea and cough x 4-5 days. Pt reports recent travel to [place] for a month long vacation having returned on Wednesday (six days ago). [place] tired Wednesday and Wednesday but attributed to travel. His did feel ill for those days but then felt better on Wednesday. However, on Wednesday, pt developed a cough then diarrhea. Cough is productive at times, but no hemoptysis. Denies significant chest tightness or shortness of breath. His main complaint is the ongoing diarrhea and loss of appetite. Diarrhea may be several times a day or only once. He has been taking pepto intermittently but this only seems to provide transient relief. Stools have been dark in color but no bright blood. Denies significant abdominal pain, nausea or vomiting. His taste has been diminished but no loss of smell. Not eating much as oral intake may make diarrhea worse. Denies chest pain, palpitations, fevers, chills, sweats. He has noted significant fatigue. Today, he went to urgent care for evaluation and was noted to be hypoxic in the upper 80s, especially with exertion. Upon arrival to triage in the ED his pulseox was in the upper 80s although improves to 90-92% with rest. Admission Exam Per Admitting Provider Constitutional: WD/WN, vitals as above no acute distress Eyes: + anicteric sclerae Neck: trachea midline Respiratory: no respiratory distress and no labored breathing Auscultation: lungs clear to auscultation bilaterally; no rales, no rhonchi and no wheezes Cardiovascular: Rate/Rhythm: regular rate and regular rhythm Heart Sounds: no gallop, no murmur and no cardiac rub Vessels: dorsalis pedis pulses present and radial pulses present Extremities: no pedal edema Gastrointestinal (Abdomen): Inspection/Auscultation: normal bowel sounds; abdomen not distended Percussion/Palpation: abdomen soft; abdomen nontender Musculoskeletal: Head/Neck/Chest: normocephalic, head atraumatic and neck pugh pple Extremities: no cyanosis and no clubbing Skin: no rashes, warm and dry Neurologic: no focal motor deficits and not confused Psychiatric: A+Ox3, euthymic affect Principal Diagnosis COVID-19 pneumonia Diarrhea resolved Avascular necrosis of bone Discharge Exam CONSTITUTIONAL: WNWD, vitals as above, generally well-appearing EYES: normal conjunctivae, no scleral icterus ENT: external ear and nose normal, oropharynx clear, MMM RESPIRATORY: clear to auscultation bilaterally, no crackles, rales or wheezes, normal respiratory effort CARDIOVASCULAR: regular rate and rhythm, S1 and 2 heard without murmurs, gallops or rubs, no JVD, no peripheral edema GASTROINTESTINAL: soft, nontender, nondistended MUSCULOSKELETAL: strength 5/5 throughout, head is normocephalic and atraumatic SKIN: warm and dry NEUROLOGIC: CN 2-12 grossly intact, no sensory deficit, normal cognition, normal speech, no tremor PSYCHIATRIC: alert cooperative and oriented to person, place and time. Discharge Data Allergies Allergy/AdvReac Type Severity Reaction Status Date / Time No Known Allergies Allergy Unknown ` Verified 01/02/21 16:55 Consultations 01/02/21 17:10 ED Decision to Admit Stat 01/02/21 19:28 Consult Orthopedic Surgery Routine Ordered Studies Laboratory Results WBC 6.36 K/uL (4.8-10.8) 01/05/21 07:17 RBC 4.51 M/uL (4.7-6.1) L 01/05/21 07:17 Hgb 14.4 g/dL (14.0-18.0) 01/05/21 07:17 Hct 42.8 % (42-52) 01/05/21 07:17 MCV 94.9 fL (80-100) 01/05/21 07:17 MCH 31.9 pg (25-34) 01/05/21 07:17 MCHC 33.6 g/dL (32-36) 01/05/21 07:17 RDW Std Deviation 49.0 fL (36.4-46.3) H 01/05/21 07:17 RDW Coeff of Sim 14.1 % (11.5-14.5) 01/05/21 07:17 Plt Count 124 K/uL (130-400) L 01/05/21 07:17 MPV 9.7 fL (7.4-10.4) 01/05/21 07:17 Immature Gran % (Auto) 0.4 % 01/02/21 15:04 Neut % (Auto) 74.7 % 01/02/21 15:04 Lymph % (Auto) 13.8 % 01/02/21 15:04 Posey % (Auto) 10.7 % 01/02/21 15:04 Eos % (Auto) 0.2 % 01/02/21 15:04 Baso % (Auto) 0.2 % 01/02/21 15:04 Neut # (Auto) 4.12 K/uL (1.4-6.5) 01/02/21 15:04 Lymph # (Auto) 0.76 K/uL (1.2-3.4) L 01/02/21 15:04 Posey # (Auto) 0.59 K/uL (0.11-0.59) 01/02/21 15:04 Eos # (Auto) 0.01 K/uL (0-0.5) 01/02/21 15:04 Baso # (Auto) 0.01 K/uL (0-0.2) 01/02/21 15:04 Immature Gran # (Auto) 0.02 K/uL (0.00-0.02) 01/02/21 15:04 APTT 28.3 Seconds (21.0-31.0) 01/02/21 15:04 PTT Ratio 1.1 01/02/21 15:04 D-Dimer 2920 ug/L FEU (0-500) H* 01/02/21 15:04 Sodium 135 mmol/L (136-145) L 01/06/21 09:22 Potassium 3.9 mmol/L (3.5-5.1) 01/06/21 09:22 Chloride 102 mmol/L (98-107) 01/06/21 09:22 Carbon Dioxide 27 mmol/L (21-32) 01/06/21 09:22 Anion Gap 6.0 (3-11) 01/06/21 09:22 BUN 20 mg/dl (7-18) H 01/06/21 09:22 Creatinine 0.97 mg/dl (0.6-1.4) 01/06/21 09:22 Est Cr Clr Drug Dosing 93.0 ml/min 01/06/21 09:22 Est GFR ( Amer) 94.6 ml/min 01/06/21 09:22 Est GFR (Non-Af Amer) 81.6 ml/min 01/06/21 09:22 BUN/Creatinine Ratio 20.1 (10-20) H 01/06/21 09:22 Glucose 157 mg/dl (70-99) H 01/06/21 09:22 Calcium 8.9 mg/dl (8.5-10.1) 01/06/21 09:22 Total Bilirubin 0.7 mg/dl (0.2-1) 01/05/21 07:17 Direct Bilirubin 0.2 mg/dl (0-0.2) 01/05/21 07:17 AST 31 U/L (15-37) 01/05/21 07:17 ALT 42 U/L (12-78) 01/05/21 07:17 Alkaline Phosphatase 63 U/L (45-117) 01/05/21 07:17 Troponin I 0.019 ng/ml (0-0.045) 01/02/21 15:04 C-Reactive Protein 1.27 mg/dl (0-0.29) H 01/06/21 09:22 Total Protein 6.4 gm/dl (6.4-8.2) 01/05/21 07:17 Albumin 2.9 gm/dl (3.4-5.0) L 01/05/21 07:17 Globulin 4.1 gm/dl (2.5-4.0) H 01/02/21 15:04 Albumin/Globulin Ratio 0.8 (0.9-2) L 01/02/21 15:04 Lipase 486 U/L (73-393) H 01/02/21 15:04 Procalcitonin < 0.05 ng/ml (0-0.5) 01/02/21 15:05 COVID-19 Eval Order Covid19 at [facility] 01/02/21 15:19 SARS-CoV-2 (PCR) POSITIVE (Negative) A* 01/02/21 15:19 Impressions Chest X-Ray 01/02/21 14:56 XR chest 1V portable HISTORY: Atypical Chest Pain COMPARISON: Chest 02/16/2020. FINDINGS: No pneumothorax. No pleural effusions. The heart remains enlarged. The left lung is clear. Stable volume loss and basilar interstitial thickening within the right lung. Old, healed left-sided rib fractures are again noted. IMPRESSION: No significant change compared to the prior study. No acute process. Stable mild volume loss and chronic interstitial thickening at the right lung base. ACT 112: Negative or not required by law. Electronically signed by: Refugio Lyon M.D. 01/02/2021 3:22 PM Abdomen/Pelvis CT 01/02/21 16:16 CT SCAN OF THE ABDOMEN AND PELVIS WITH IV CONTRAST CLINICAL HISTORY: Generalized abdominal pain. Covid. COMPARISON STUDY: Abdominal CT dated 03/11/2014. TECHNIQUE: Following the IV administration of 118 cc of Optiray 320, CT scan of the abdomen and pelvis is performed from the lung bases to the proximal femora. Images are reviewed in the axial, sagittal, and coronal planes. IV contrast was administered without complication. A dose lowering technique was utilized adhering to the principles of ALARA. FINDINGS: Lung bases: The heart is normal in size and without pericardial effusion. Fatty change in the left ventricular wall suggests previous ischemia. The coronary arteries are densely calcified. There is patchy groundglass consolidation identified at the right lung base. Scarring/atelectasis is seen at the left lung base. There is trace right pleural effusion. A small hiatal hernia is noted. Liver: The contrast-enhanced liver is normal in size, contour, and attenuation. There is no intrahepatic biliary ductal dilatation. The hepatic veins and portal veins are patent. Gallbladder: Unremarkable. Spleen: Normal in size and attenuation. Pancreas: Unremarkable. Adrenal glands: Unremarkable. Kidneys: The contrast enhanced kidneys are normal in size and without hydronephrosis. The kidneys enhance symmetrically. Abdominal vasculature: There is moderate to advanced atherosclerotic calcification mild ectasia of the abdominal aorta. Bowel: There is no bowel obstruction. There is mild to moderate colonic diverticulosis without CT evidence of acute diverticulitis. The appendix is not identified and reported surgically absent. Peritoneum: There is no intraperitoneal free air or abdominal ascites. There is a small fat-containing umbilical hernia. Lymphadenopathy: None. Pelvic viscera: The prostate gland is mildly enlarged and heterogeneous noting median lobe hypertrophy. The bladder is mildly distended but otherwise normal as imaged. Skeletal structures: No lytic or blastic lesions are seen. 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 IMPRESSION: 1. There are no acute infectious or inflammatory findings in the abdomen or pelvis. 2. Airspace consolidation is seen at the right lung base is typical for pneumonia. Clinical correlation will be required and radiographic follow-up to resolution is recommended. 3. 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 4. Advanced coronary artery calcification. 5. Colonic diverticulosis without CT evidence of acute diverticulitis. 6. Additional findings as above. ACT 112: Negative or not required by law. Electronically signed by: Navin Yip M.D. 01/02/2021 5:16 PM Chest CTA 01/02/21 16:16 CT ANGIOGRAM OF THE CHEST CLINICAL HISTORY: hypoxic recent travel COMPARISON STUDY: 03/11/2014 TECHNIQUE: Following the IV administration of 118 mL of Optiray, CT angiogram of the thorax was performed from the thoracic inlet to the lung bases utilizing the pulmonary embolus protocol. Images are reviewed in the axial, sagittal, and coronal planes. IV contrast was administered without complication. MIP imaging was performed. A dose lowering technique was utilized adhering to the principles of ALARA. CT DOSE: 1693.26 mGycm FINDINGS: There is adequate opacification of the main pulmonary artery. Evaluation of peripheral branches of pulmonary artery is limited due to respiratory motion artifact. No evidence of acute central pulmonary embolus. Pulmonary artery is normal in caliber. No evidence of right heart strain. Mild four-chamber cardiomegaly. No evidence of pericardial effusion. Severe coronary calcifications are seen. There is no axillary, supra clavicle or internal mammary lymphadenopathy seen. There is mild enlargement of mediastinal lymph nodes measuring up to 1.4 cm in diameter. Right hilar lymph node is measuring 2.0 cm in size. Visualized portion of thyroid gland shows no evidence of acute abnormalities. Mild diffuse thickening of nasopharyngeal wall is seen. Aorta is normal in caliber with few scattered calcifications of its wall. Tracheobronchial tree is patent. This study is acquired during partial expiratory phase, evaluation of lung parenchyma is limited due to prominent respiratory motion artifact. There are mixed areas of groundglass attenuation with patchy areas of consolidation and septal thickening within peripheral aspect of the right upper and lower lobes. No pleural effusion is seen. Limited evaluation of upper abdominal viscera shows no evidence of acute abnormalities. Evaluation of osseous structures shows minimal degenerative changes of the spine. IMPRESSION: 1. No evidence of central pulmonary embolus. Evaluation of peripheral branches of pulmonary artery is limited due to motion artifact. 2. Mixed groundglass and consolidative opacities associated with septal thickening at the peripheral aspect of the right upper and lower lobes might represent atypical pneumonia versus other etiology. Short-term follow-up with CT of the chest without IV contrast in 4-6 weeks is recommended to document resolution. 3. Mild mediastinal lymphadenopathy, likely reactive. 4. Atherosclerosis. ACT 112: Positive. There are findings on this exam that require communication between the performing entity and the patient following Patient Test Result Information Act ([place] Act 112) guidelines. The above report was generated using voice recognition software. It may contain grammatical, syntax or spelling errors. Electronically signed by: Ade Whittaker DO 01/02/2021 5:10 PM Hospital Course (1) Pneumonia due to COVID-19 virus: Received daily dexamethasone and remdesivir each day he was admitted. Hypoxia with exertion finally resolved per two step evaluation which was normal at the time of discharge. Diarrhea resolved. Cont supportive care. Repeat imaging recommended in 4-6 weeks with PCP to ensure complete resolution of pneumonia. (2) Diarrhea: 2/2 covid-cont imodium. Resolved, Avoid dairy (3) Avascular necrosis of bone: Cont with dexamethasone for now, but will give limited course. Per ortho recommendations, followup in office for further evaluation and workup post- infection. He verbalized understanding with intent to comply. (4) CAD (coronary artery disease): chronic, stable cont current home regimen. (5) Dyslipidemia: - Continue statin therapy (6) HTN (hypertension): - Continue home meds (7) DVT prophylaxis: Lovenox Full Code Dispo-to home Florecita Zambrano DO [facility] Hospitalist Total Time Total Time Spent Total Time Spent (In Minutes): 60 Total Time Includes: Examination of the Patient, Discharge Planning, Medication Reconciliation and Communication With Other Providers Discharge Plan Discharge Items Patient Disposition: Home - Self-Care Reason For Visit: COVID PNEUMONIA Discharge Diagnosis: COVID-19 pneumonia Diarrhea resolved Avascular necrosis of bone Condition on Discharge: Good Activity: Resume your previous activity Non-emergency contact: Primary Care Provider Call non-emergency contact if: you have any medication questions and your symptoms worsen Follow-up/Referrals: Rohan Mckenzie DO [Primary Care Provider] - (Date & Time 01/10/2021 1:40 PM Provider Rohan Mckenzie DO Department [facility] PLEASE NOTE THAT THIS IS A TELEHEALTH APPOINTMENT. PLEASE FOLLOW THE INSTRUCTIONS PROVIDED IN YOUR EMAIL. IF YOU HAVE ANY QUESTIONS REGARDING THIS APPOINTMENT, PLEASE CALL ) Diet: Regular Addtl Attending Provider Instructions: Please resume all medications as instructed on discharge list below. It is recommended that you obtain a follow-up chest x-ray in 4 to 6 weeks to ensure complete resolution of pneumonia. This may be ordered by your primary care doctor. Please follow-up with your primary care physician within 1 week of discharge to ensure you are still doing well after going home. You underwent a formal testing to ensure you did not need any oxygen supplementation at home. Your hypoxia should be completely resolved. While you were hospitalized you did undergo a CT scan of the abdomen and pelvis which revealed avascular necrosis of the proximal femora (hips). Orthopedics was consulted and recommended follow-up in the clinic in 3 weeks after recovering from COVID-19. The orthopedic surgeon who reviewed her chart was Dr. Keyon Fuller. Please feel free to contact his office to be set up for evaluation [phone]. Of note, you may need a referral from your primary care physician's office for this. It was a pleasure taking care of you! Please call if you have any questions or problems. You can reach a [facility] hospitalist on duty at [facility] 24 hours a day by calling [phone]. Take care of yourself. Florecita Zambrano DO [facility] Hospitalist Pending Studies at Discharge: No Stand-Alone Forms: My [facility] Medications and DC Order Prescriptions: Continued clopidogrel 75 mg Tablet 75 mg PO QAM Qty: 30 RF: 11 aspirin 81 mg Tablet,Delayed Release (Dr/Ec) 81 mg PO QAM Qty: 30 RF: 11 nitroglycerin [Nitrostat] 0.4 mg Tablet, Sublingual 0.4 mg sublingual PRN PRN (Reason: chest pain) Qty: 30 RF: 11 ezetimibe [Zetia] 10 mg Tablet 10 mg PO QAM Qty: 30 RF: 11 metoprolol succinate 50 mg tablet extended release 24 hr 25 mg PO DAILY RF: 0 simvastatin 40 mg tablet 40 mg PO HS RF: 0 allopurinol 300 mg tablet 300 mg PO HS RF: 0 furosemide 20 mg tablet 20 mg PO WK RF: 0 Vitamin C 100 mg Tablet 500 mg PO DAILY RF: 0 vitamin B complex Tablet 1 tab PO DAILY RF: 0 losartan 100 mg tablet 100 mg PO DAILY RF: 0 Discharge Orders: Discharge Order (Routine); Ordered 01/06/21 Ordered By: Florecita Zambrano Admission Data Admit Date/Time: 01/02/21 18:21 Attending Provider: Florecita Zambrano Admit Provider: Florecita Zambrano Primary Care Provider: Rohan Mckenzie Other Providers: Florecita Zambrano ; Keyon Glez Other Interventions: Discharge Summary Assessment (RN) Last Done: 01/06/21 14:58
== END 2021-01-06 16:10 | disposition home or self-care (01) | DRG 177 ==
LOC: ED 14:35 → 2W 18:21

== ENCOUNTER 2023-06-15 15:52 | Inpatient (IN) ==
[2023-06-15] MEDS ORDERED: LABETALOL HCL IV 5 MG/ML 20ML IV ONE (16:00)
[2023-06-15] MEDS ORDERED: OPTIRAY 320 125ml IV ONE (16:03)
[2023-06-15] MEDS ORDERED: SODIUM CHLORIDE 0.9% 10ML FLUSH IV STA (16:06)
[2023-06-15] MEDS ORDERED: STAT IV/IM STA (16:06)
[2023-06-15] MEDS ORDERED: No Aspirin within 24hrs of THROMBOLYTIC-Stroke PO SCH (16:15)
[2023-06-15] MEDS ORDERED: TENECTEPLASE 25 MG in SYRINGE 0 ML IV ONE (16:17)
[2023-06-15 16:24] LABS: Basophils # (auto) 0.03 K/uL (0.00-0.20); Basophils % (auto) 0.4 %; Eosinophils # (auto) 0.05 K/uL (0.00-0.50); Eosinophils % (auto) 0.6 %; Hematocrit (blood only) 40.5 % (42.0-52.0); Hemoglobin 13.9 g/dl (14.0-18.0); Immature Granulocytes # (auto) 0.03 K/uL (0.01-0.20); Immature Granulocytes % (auto) 0.4 %; Lymphocytes # (auto) 1.36 K/uL (1.20-3.40); Lymphocytes % (auto) 17.5 %; Mean Corpuscular Hemoglobin 31.5 pg (25.0-34.0); Mean Corpuscular Hgb Conc 34.3 g/dL (32.0-36.0); Mean Corpuscular Volume 91.8 fL (80.0-100.0); Mean Platelet Volume 10.8 fL (9.4-12.4); Monocytes # (auto) 0.87 K/uL (0.11-0.59); Monocytes % (auto) 11.2 %; Neutrophils # (auto) 5.41 K/uL (1.40-6.50); Neutrophils % (auto) 69.9 %; Platelet Count 143 K/uL (130-400); RDW Coefficient of Variation 14.5 % (11.5-14.5); RDW Standard Deviation 48.2 fL (36.4-46.3); Red Blood Count 4.41 M/uL (4.70-6.10); White Blood Count 7.75 K/ul (4.8-10.8)
--- NOTE | 2023-06-15 16:24 | CT Scan Report ---
UNENHANCED CT OF THE BRAIN; CT ANGIOGRAM OF THE BRAIN; CT ANGIOGRAM OF THE NECK CLINICAL HISTORY: Neurological deficit. Stroke like symptoms. COMPARISON STUDY: CT of the brain dated 03/11/2014. TECHNIQUE: Unenhanced axial CT scan of the brain is performed. Subsequently, following the IV adminis tration of 119 of [address] 320, CT angiogram of the head and neck was performed from the aortic arch t o the vertex. Images are reviewed in the axial, sagittal, and coronal planes. 3-D MIPS images are cre ated and assessed. IV contrast was administered without complication. All measurements were calculate d based on NASCET criteria. A dose lowering technique was utilized adhering to the principles of ALA RA. CT DOSE: 1243.49 mGy.cm FINDINGS: Brain parenchyma: There is age-related changes noting minimal microangiopathic disease. There is no h emorrhage or mass effect. There is no evidence of enhancing mass lesion on the angiogram phase images . The ventricles, sulci, and cisterns are prominent secondary to involutional change. Thapa-white melisa er differentiation is preserved. No extra-axial fluid collection is seen. Thoracic aorta: There is atherosclerotic calcification of the thoracic aorta. Visualized portions of the thoracic aorta are normal in caliber. The aortic arch demonstrates standard 3-vessel anatomy. Right carotid arterial system: The right common carotid artery is widely patent, as are the right int ernal and external carotid arteries. Calcified plaque is noted in the carotid bulb. Left carotid arterial system: The left common carotid artery is widely patent. There is advanced athe rosclerotic plaque in the carotid bulb. This causes approximately 75% focal stenosis at the origin of the left internal carotid artery. The mid-distal portions of the left internal carotid artery are wi ilana patent. There is also high-grade stenosis at the origin of the left external carotid artery. Vertebral arteries: The vertebral arteries are patent bilaterally and codominant. Subclavian arteries: Widely patent bilaterally. Intracranial vasculature: The internal carotid arteries are patent at the skull base, as are the ante rior cerebral arteries. Suspect a small calcified thrombus within a peripheral branch of the left mid dle cerebral artery along the sylvian fissure. This is best seen on axial image #[address] angiog karen examination. The middle cerebral arteries are otherwise patent bilaterally. The vertebrobasilar s ystem and posterior cerebral arteries are patent. The vertebral arteries are codominant. No aneurysm is seen. Jugular veins: Patent bilaterally. Dural sinuses: Patent. Lung apices: A moderate right pleural effusion is partially visualized. Upper lobe lung parenchyma is otherwise clear as imaged. Soft tissues: The visualized pharyngeal soft tissues are normal in appearance noting angiographic pha se technique. The oropharyngeal airway appears widely patent. The salivary and thyroid glands are nor mal in appearance. No cervical lymphadenopathy is seen. A 2.6 cm lipoma is noted in the left occipita l scalp. Skeletal structures: The calvarium appears intact. The cervical spine is maintained noting multilevel spondylosis. Orbits: The bony orbits are intact. Orbital contents are normal as visualized noting bilateral ocular lens implants. Sinuses and mastoids: There is mild mucosal thickening within the maxillary antra. The remaining para nasal sinuses are clear. The mastoid air cells are well pneumatized. IMPRESSION: 1. Suspect a small calcified thrombus within a peripheral branch of the left middle cerebral artery a long the sylvian fissure. There is focal vessel cut off at this site and this likely represents acute stroke. 2. There is no hemorrhage or mass effect. Thapa-white matter differentiation is maintained. 3. The remaining intracranial vessels are patent. 4. There is approximately 75% focal stenosis at the origin of the left internal carotid artery. 5. The right carotid systematic and the vertebral arteries are patent. 6. A right pleural effusion is partially imaged. 7. There is also high-grade stenosis at the origin of the left external carotid artery. ACT 112: Negative or not required by law. Electronically signed by: Navin Yip M.D. 06/15/2023 4:22 PM
--- NOTE | 2023-06-15 16:33 | Electrocardiogram Report ---
Test Reason : Blood Pressure : / mmHG Vent. Rate : 107 BPM Atrial Rate : 107 BPM P-R Int : 110 ms QRS Dur : 100 ms QT Int : 380 ms P-R-T Axes : 068 039 183 degrees QTc Int : 507 ms Sinus tachycardia with frequent Premature ventricular complexes and Fusion complexes Abnormal ECG When compared with ECG of 02-JAN-2021 15:11, Significant changes have occurred Confirmed by Kaiser Gutierrez ([id number]) on 06/15/2023 4:33:20 PM Referred By: Confirmed By:Adelso Gutierrez
--- NOTE | 2023-06-15 16:38 | History & Physical Report ---
Date of Service June 15, 2023 Assessment & Plan (1) Acute stroke due to embolism of left middle cerebral artery: (2) HTN (hypertension): (3) CAD (coronary artery disease): Plan Mr. Brandan Morgan is a 67 year old gentleman with past medical history remarkable for obstructive coronary artery disease s/p LALIT RCA 2019, HTN, prior tobacco use, HLD, prior COVID 2019 who presented to [facility] ED due to right sided facial droop, dysarthria, and expressive dysphagia and administered TNK on 06/15 at 1618. Patient to be admitted to ICU for post-24 hours TNK monitoring. Patient still with right facial droop and dysarthria, but noting improvement in aphasia. #Acute stroke #Right facial droop #Dysarthria -CT with calcified thrombus of left MCA territory -TNK 06/15/2023 at 1618 -Admit to ICU for q2 neuro checks -MRI ordered -Post [address] -ECHO ordered -Monitor on Telemetry -Speech eval -PT/OT ordered -NPO until clear from speech -Neuro consulted for further recommendations -ICU consult for post-TNK management #SANCHEZ #Right Pleural effusion -ECHO below -low suspicion for aspiration given size -Follow up BNP #Heart failure with recovered EF (40-45% from 35%) #Obstructive CAD s/p LALIT to RCA 2019 #HTN #HLD -Hoome regimen: Simvastatin 40mg, Metoprolol XL 25mg daily, Losartan 100mg daily, ASA 81 daily, Zetia 10mg daily, Furosemide 40 -Unable to complete echo at OP visit 2/2 stroke -Repeat ECHO -BNP ordered -BP control with Labetolol for SBP >180 -Monitor on Tele -Monitor Fluid status -Consider Cardiology follow -Resume home regimen when able #Gout Resume allopurinol when able DVT: SCDs NPO Admit ICU post TNK monitoring Admission and Anticipated Discharge Date Admission Date: Time spent evaluating patient, direct bedside care, chart review, placing orders, interpretation of diagnostic studies, discussion with consultants, patient, and family members, as well as other required patient management activities is 60 minutes. History of Present Illness Chief Complaint: Stroke-like symptoms Primary Care Provider: Rohan Mckenzie, Mr. Brandan Morgan is a 67 year old gentleman with past medical history remarkable for obstructive coronary artery disease s/p LALIT RCA 2019, HTN, prior tobacco use, HLD, prior COVID 2019 who presented to [facility] ED due to right sided facial droop, dysarthria, and expressive dysphagia and administered TNK on 06/15 at 1618. Patient to be admitted to ICU for post-24 hours TNK monitoring. History of presentation gathered from patient and OSH EMR Upon exam, patient laying supine in ED stretcher. Patient greeted appropriately. Initially difficult to understand, but responded to questions appropriately. 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 He underwent a CXR due to symptoms SOB/Cough. This revealed cardiomegaly and pleural effusion prompting ECHO. Once patient went to ECHO, he states is when "this all happened" as he gestured with his hands towards his face. He states that since the TNK/since being in the ED, he has noted some improveme nt in symptoms, but feels it "comes and goes" in intensity. Nurse at bedside notes improvement mostly with aphasia, stating she is able to understand him much more and he is doing better with the neuro checks. Patient denies chest pain, orthopnea, any sensation/motor loss of extremities, issues with urination/bowels. Patient took all of his morning meds. Last tobacco use greater than 8 years ago. Drinks 4-5 beers daily, last drink 06/14, denies history of withdrawal like symptoms often goes "1-2 days" without Denies other active substance use In the ED, vitals were notable for BP in 140-160s, HR 80s-100s and O2 sat high 90s on room air CXR personally reviewed and revealed cardiomegaly with increased interstitial markings CT head with small calcified thrombus in left MCA, w/out hemorrhage; 75% stenosis of LICA, high grade stenosis of LECA EKG reviwed with sinus tachy, PVCs, similar to previous EKGs ED interventions: TNK 1618 Consultants: Teleneuro; admit consults Neuro, ICU Patient to be admitted to ICU for further evaluation and management of acute stroke Allergies Allergy/AdvReac Type Severity Reaction Status Date / Time No Known Allergies Allergy Unknown ` Verified 06/15/23 17:28 Home Medications Medication Instructions Recorded Confirmed Type aspirin 81 mg tablet,delayed 81 mg PO QAM #30 tabs 02/17/20 06/15/23 Rx release ezetimibe 10 mg tablet (Zetia) 10 mg PO QAM #30 tabs 02/17/20 06/15/23 Rx nitroglycerin 0.4 mg sublingual 0.4 mg sublingual PRN PRN chest 02/17/20 06/15/23 Rx tablet (Nitrostat) pain #30 tabs allopurinol 300 mg tablet 300 mg PO HS 01/02/21 06/15/23 History losartan 100 mg tablet 100 mg PO DAILY 01/02/21 06/15/23 History metoprolol succinate 50 mg 25 mg PO DAILY 01/02/21 06/15/23 History tablet,extended release 24 hr simvastatin 40 mg tablet 40 mg PO HS 01/02/21 06/15/23 History vitamin B complex 1 tab PO DAILY 01/02/21 06/15/23 History albuterol sulfate 90 mcg/actuation 2 puff inhalation DIRECTED PRN 06/15/23 06/15/23 History aerosol inhaler Shortness Of Breath Or Wheezing econazole 1 % topical cream 1 applic topical 2XWK 06/15/23 06/15/23 History furosemide 40 mg tablet (Lasix) 40 mg PO DAILY 06/15/23 06/15/23 History vitamins A,C,I-nihc-pduytl 4,296 1 cap PO QAM 06/15/23 06/15/23 History mcg-226 mg-90 mg capsule (PreserVision AREDS) Past Med/Surg History Medical History CAD (coronary artery disease) Dyslipidemia History of tobacco abuse Hypertension Ischemic cardiomyopathy Mouth cancer Neuropathic foot ulcer Nonsustained ventricular tachycardia NSTEMI (non-ST elevated myocardial infarction) Total of 4. 1997 Circumflex, 02/16/2020 Proximal LAD, 03/07/2020 Proximal and Mid RCA NSVT (nonsustained ventricular tachycardia) Surgical History H/O heart artery stent History of appendectomy History of cataract extraction History of colonoscopy with polypectomy multiple - prior villous adenoma in 2007 History of oral surgery excision of right mouth floor lesion, right submandibular gland, suprahyoid lymphadenectomy - 2016 Stented coronary artery Family History Father Heart disease Prostate cancer Brother Heart disease Social History Smoking Status: Never smoker Second Hand Exposure: No; Do You Dip or Chew Tobacco: No; Hx Alcohol Use: No Hx Substance Use: No Preferred Language: Northern Irish Communication Ability: Effective 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 Head: (-) headache, (-) dizziness. Eye: (-) blurring of vision, (-) double vision, (-) redness. Ear: (-) hearing loss, (-) discharge, (-) vertigo Nose: (-) discharge, (-) bleeding, (-) congestion, (-) post nasal drip. Throat: (-) sore throat, (-) hoarseness of voice, (-) odynophagia. Cardiovascular: (-) chest pain, (-) palpitations, (-) syncope, (-) orthopnea, (- ) PND, (-) leg swelling. Respiratory: (+) shortness of breath-on exertion, (-) cough, (-) wheezing, (-) hemoptysis. Neuro: (-) weakness in extremities, (-) numbness, (-) tingling, (-) tremor. (++)difficulty speaking/swallowing Gastrointestinal: (-) nausea, (-) vomiting, (-) diarrhea, (-) constipation, (-) hematemesis, (-) hematochezia, (-) bowel incontinence Genitourinary: (-) hematuria, (-) dysuria, (-) polyuria, (-) hesitancy, (-) fr equency, (-) urinary incontinence. Musculoskeletal: (-) myalgia, (-) arthralgia. Skin: (-) rashes. Physical Exam Physical Exam: GENERAL APPEARANCE: AxOx4, generally well-appearing, no acute distress HEENT: NC, AT. MMM. EOMI, clear conjunctiva, oropharynx clear. NECK: Supple without lymphadenopathy. No stiffness or restricted ROM. HEART: Normal rate and regular rhythm, normal S1/S1, no m/r/g LUNGS: Decreased breath sounds in RLL ABDOMEN: Soft, nontender, nondistended with good bowel sounds heard. EXTREMITIES: Without cyanosis, clubbing or edema. NEUROLOGICAL: Right naso labial flattening, asymmetric smile with r deficit, tongue able to move left/right, strength in tact in all extremities 5/5, sensation intact, dysarthria noted with episode of aphasia lasting about 10 seconds while examining Results & Data Results & Data Vital Signs (Past 12 Hours) Vital Signs Pulse Resp BP Pulse Ox O2 Del Method O2 Flow Rate 06/15/23 16:22 94 H 21 95 06/15/23 16:22 161/84 H 06/15/23 16:20 100 H 22 94 06/15/23 16:19 161/89 H 06/15/23 16:19 95 H 24 95 06/15/23 16:16 99/75 L 06/15/23 16:16 105 H 23 95 06/15/23 16:15 97 H 21 95 06/15/23 16:14 128/82 06/15/23 16:14 105 H 22 06/15/23 16:10 108 H 21 100 06/15/23 16:09 105 H 29 H 100 06/15/23 16:08 107 H 06/15/23 16:08 100 Room Air 0 06/15/23 16:03 100 H 23 182/83 H 100 Room Air Laboratory Results Short CBC 06/15/23 Range/Units 16:09 WBC 7.75 (4.8-10.8) K/ul Hgb 13.9 L (14.0-18.0) g/dl Hct 40.5 L (42.0-52.0) % Plt Count 143 (130-400) K/uL Diagnostic Findings Reviewed imaging reports of CTA neck/head Personally opened and interpreted CXR with R pleural effusion, cardiomegaly and increased interstitial markings Medications Administered Home Medications Medication Instructions Recorded Confirmed Last Taken aspirin 81 mg tablet,delayed 81 mg PO QAM #30 tabs 02/17/20 01/02/21 01/02/21 release clopidogrel 75 mg tablet 75 mg PO QAM #30 tabs 02/17/20 01/02/2101/02/21 ezetimibe 10 mg tablet (Zetia) 10 mg PO QAM #30 tabs 02/17/20 01/02/21 01/02/21 nitroglycerin 0.4 mg sublingual 0.4 mg sublingual PRN PRN chest 02/17/20 01/02/21 Unknown tablet (Nitrostat) pain #30 tabs allopurinol 300 mg tablet 300 mg PO HS 01/02/21 01/02/21 01/01/21 ascorbic acid (vitamin C) 100 mg 500 mg PO DAILY 01/02/21 01/02/21 Unknown tablet (Vitamin C) furosemide 20 mg tablet 20 mg PO WK 01/02/21 01/02/21 Unknown losartan 100 mg tablet 100 mg PO DAILY 01/02/21 01/02/21 01/02/21 metoprolol succinate 50 mg 25 mg PO DAILY 01/02/21 01/02/21 01/02/21 tablet,extended release 24 hr simvastatin 40 mg tablet 40 mg PO HS 01/02/21 01/02/21 01/01/21 vitamin B complex 1 tab PO DAILY 01/02/21 01/02/21 Unknown (2) HTN (hypertension) Hypertension type: essential hypertension Qualified Code(s): I10 - Essential (primary) hypertension
[2023-06-15 16:55] LABS: Alanine Aminotransferase 21 U/L (7-52); BUN Creatinine Ratio 12.4 (10-20); Bilirubin,Total 1.1 mg/dl (0.2-1.0); Blood Urea Nitrogen 13 mg/dl (6-23); Calcium 9.1 mg/dl (8.6-10.3); Carbon Dioxide 30 mmol/L (21-32); Chloride 97 mmol/L (98-107); Creatinine Clr Calc Pharmacy 90.7 ml/min; Est GFR (African American) 84.7 ml/min; Est GFR (Non-African American) 73.1 ml/min; Glucose 117 mg/dl (70-99(Fasting)); Total Protein 6.5 gm/dl (6.0-8.3); Troponin I High Sensitivity 18.5 pg/ml (0-20)
[2023-06-15 17:28] LABS: INR 1.1 (0.9-1.1); Partial Thromboplastin Ratio 0.9; Partial Thromboplastin Time 25.7 Seconds (21.0-31.0); Prothrombin Time 12.1 Seconds (9.0-12.0)
[2023-06-15 17:37] LABS: Albumin Level 4.1 gm/dl (3.4-5.0); Magnesium 1.7 mg/dl (1.7-2.4); Potassium 4.2 mmol/L (3.5-5.1)
--- NOTE | 2023-06-15 17:40 | XRay Report ---
XR chest 1V portable HISTORY: 67 years-old Male neuro deficit, acute stroke suspected acute stroke like symptoms COMPARISON: 01/02/2021 TECHNIQUE: AP view of the chest FINDINGS: Cardiac silhouette is enlarged. Small moderate right pleural effusion with mild right basilar consoli dation. Pulmonary vascular congestion. No pneumothorax. No acute fracture. IMPRESSION: 1. Cardiomegaly with pulmonary vascular congestion. 2. [id number] right pleural effusion with right basilar consolidation. ACT 112: Negative or not required by law. The above report was generated using voice recognition software. It may contain grammatical, syntax o r spelling errors. Electronically signed by: Mina Vu M.D. 06/15/2023 5:39 PM
--- NOTE | 2023-06-15 17:47 | Emergency Department Note ---
History of Present Illness General Chief complaint: Stroke Alert Stated complaint: STROKE ALERT Source: patient and EMS History of Present Illness Provider complaint: Strokelike symptoms 67-year-old male presents emergency department via EMS for strokelike symptoms. 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 EMS was called and brought the patient in for a stroke alert. Patient reports no headache. No blood thinners. No history of intracranial surgery. No recent melena or hematochezia. No recent hematuria or dysuria. No chest pain or difficulty breathing. Home Medications Medication Instructions Recorded Confirmed Type aspirin 81 mg tablet,delayed 81 mg PO QAM #30 tabs 02/17/20 06/15/23 Rx release ezetimibe 10 mg tablet (Zetia) 10 mg PO QAM #30 tabs 02/17/20 06/15/23 Rx nitroglycerin 0.4 mg sublingual 0.4 mg sublingual PRN PRN chest 02/17/20 06/15/23 Rx tablet (Nitrostat) pain #30 tabs allopurinol 300 mg tablet 300 mg PO HS 01/02/21 06/15/23 History losartan 100 mg tablet 100 mg PO DAILY 01/02/21 06/15/23 History metoprolol succinate 50 mg 25 mg PO DAILY 01/02/21 06/15/23 History tablet,extended release 24 hr simvastatin 40 mg tablet 40 mg PO HS 01/02/21 06/15/23 History vitamin B complex 1 tab PO DAILY 01/02/21 06/15/23 History albuterol sulfate 90 mcg/actuation 2 puff inhalation DIRECTED PRN 06/15/23 06/15/23 History aerosol inhaler Shortness Of Breath Or Wheezing econazole 1 % topical cream 1 applic topical 2XWK 06/15/23 06/15/23 History furosemide 40 mg tablet (Lasix) 40 mg PO DAILY 06/15/23 06/15/23 History vitamins A,C,G-ngog-dqjcqv 4,296 1 cap PO QAM 06/15/23 06/15/23 History mcg-226 mg-90 mg capsule (PreserVision AREDS) Allergies Allergy/AdvReac Type Severity Reaction Status Date / Time No Known Allergies Allergy Unknown ` Verified 06/15/23 17:28 Past Med/Surg History Medical History Mouth cancer Neuropathic foot ulcer Nonsustained ventricular tachycardia History of tobacco abuse Hypertension Dyslipidemia NSTEMI (non-ST elevated myocardial infarction) Total of 4. 1997 Circumflex, 02/16/2020 Proximal LAD, 03/07/2020 Proximal and Mid RCA CAD (coronary artery disease) NSVT (nonsustained ventricular tachycardia) Ischemic cardiomyopathy Surgical History History of colonoscopy with polypectomy multiple - prior villous adenoma in 2007 History of oral surgery excision of right mouth floor lesion, right submandibular gland, suprahyoid lymphadenectomy - 2016 History of cataract extraction History of appendectomy Stented coronary artery H/O heart artery stent Family History Father Heart disease Prostate cancer Brother Heart disease Social History Smoking Status: Never smoker Second Hand Exposure: No; Do You Dip or Chew Tobacco: No; Hx Alcohol Use: No Hx Substance Use: No Preferred Language: Romanian Communication Ability: Effective Well Treatment Offsider Required: No Beliefs That Will Affect Care: None marital status: Current Living Situation: Spouse Feels Safe at Home: Yes Assistive Devices: None Physical Exam Vital Signs Vital Signs - 24 hr 06/15/23 16:03 06/15/23 16:08 06/15/23 16:08 Pulse Rate 100 H 107 H Pulse Rate from SpO2 Sensor Respiratory Rate 23 Respiratory Effort / Characteristics Non-Labored Respiratory Depth Normal Blood Pressure 182/83 H Blood Pressure Mean 116 Pulse Oximetry 100 100 Oxygen Delivery Method Room Air Room Air Oxygen Flow Rate 0 Sepsis Recent Fever Within 48 Hours No Sepsis New/Unexplained Change in Mental Status N/A Sepsis Action Taken by Nursing No Action Required 06/15/23 16:09 06/15/23 16:10 06/15/23 16:14 Pulse Rate 105 H 108 H 105 H Pulse Rate from SpO2 Sensor 140 H Respiratory Rate 29 H 21 22 Respiratory Effort / Characteristics Respiratory Depth Blood Pressure Blood Pressure Mean Pulse Oximetry 100 100 Oxygen Delivery Method Oxygen Flow Rate Sepsis Recent Fever Within 48 Hours Sepsis New/Unexplained Change in Mental Status Sepsis Action Taken by Nursing 06/15/23 16:14 06/15/23 16:15 06/15/23 16:16 Pulse Rate 97 H 105 H Pulse Rate from SpO2 Sensor 52 L 51 L Respiratory Rate 21 23 Respiratory Effort / Characteristics Respiratory Depth Blood Pressure 128/82 Blood Pressure Mean 105 Pulse Oximetry 95 95 Oxygen Delivery Method Oxygen Flow Rate Sepsis Recent Fever Within 48 Hours Sepsis New/Unexplained Change in Mental Status Sepsis Action Taken by Nursing 06/15/23 16:16 06/15/23 16:19 06/15/23 16:19 Pulse Rate 95 H Pulse Rate from SpO2 Sensor 76 Respiratory Rate 24 Respiratory Effort / Characteristics Respiratory Depth Blood Pressure 99/75 L 161/89 H Blood Pressure Mean 86 136 Pulse Oximetry 95 Oxygen Delivery Method Oxygen Flow Rate Sepsis Recent Fever Within 48 Hours Sepsis New/Unexplained Change in Mental Status Sepsis Action Taken by Nursing 06/15/23 16:20 06/15/23 16:22 06/15/23 16:22 Pulse Rate 100 H 94 H Pulse Rate from SpO2 Sensor 98 H 91 H Respiratory Rate 22 21 Respiratory Effort / Characteristics Respiratory Depth Blood Pressure 161/84 H Blood Pressure Mean 91 Pulse Oximetry 94 95 Oxygen Delivery Method Oxygen Flow Rate Sepsis Recent Fever Within 48 Hours Sepsis New/Unexplained Change in Mental Status Sepsis Action Taken by Nursing 06/15/23 16:25 06/15/23 16:25 06/15/23 16:30 Pulse Rate 94 H Pulse Rate from SpO2 Sensor 75 Respiratory Rate 19 Respiratory Effort / Characteristics Respiratory Depth Blood Pressure 174/73 H 147/85 H Blood Pressure Mean 99 102 Pulse Oximetry 94 Oxygen Delivery Method Oxygen Flow Rate Sepsis Recent Fever Within 48 Hours Sepsis New/Unexplained Change in Mental Status Sepsis Action Taken by Nursing 06/15/23 16:30 06/15/23 16:35 06/15/23 16:36 Pulse Rate 93 H 99 H Pulse Rate from SpO2 Sensor 92 H 90 Respiratory Rate 20 20 Respiratory Effort / Characteristics Respiratory Depth Blood Pressure 159/119 H Blood Pressure Mean 144 Pulse Oximetry 94 92 Oxygen Delivery Method Oxygen Flow Rate Sepsis Recent Fever Within 48 Hours Sepsis New/Unexplained Change in Mental Status Sepsis Action Taken by Nursing 06/15/23 16:36 06/15/23 16:40 06/15/23 16:40 Pulse Rate 96 H 94 H Pulse Rate from SpO2 Sensor 98 H 75 Respiratory Rate 22 21 Respiratory Effort / Characteristics Respiratory Depth Blood Pressure 157/98 H Blood Pressure Mean 114 Pulse Oximetry 94 93 Oxygen Delivery Method Oxygen Flow Rate Sepsis Recent Fever Within 48 Hours Sepsis New/Unexplained Change in Mental Status Sepsis Action Taken by Nursing 06/15/23 16:45 06/15/23 16:45 Pulse Rate 93 H Pulse Rate from SpO2 Sensor 86 Respiratory Rate 24 Respiratory Effort / Characteristics Respiratory Depth Blood Pressure 158/96 H Blood Pressure Mean 115 Pulse Oximetry 95 Oxygen Delivery Method Oxygen Flow Rate Sepsis Recent Fever Within 48 Hours Sepsis New/Unexplained Change in Mental Status Sepsis Action Taken by Nursing Physical Exam GENERAL: oriented to person, place, and time. appears well-developed and well- nourished. HENT: Exam performed. - Head: Normocephalic and atraumatic. EYES: Conjunctivae and EOM are normal. Right eye exhibits no discharge. Left eye exhibits no discharge. No scleral icterus. NECK: Normal range of motion. Neck supple. No JVD present. CV: Normal rate, regular rhythm, normal heart sounds and intact distal pulses. There is no peripheral edema. Palpable radial pulses bue. PULM/CHEST: Effort normal and breath sounds normal. No respiratory distress. No stridor. no wheezes. no rales. ABD: The abdomen is soft. There is no tenderness. NEURO: NIHSS 5 (4:2, 9:2, 10:1) SKIN: Skin is warm and dry. He is not diaphoretic. Course Course 1548: Received a call from EMS about stroke like symptoms of the patient. Code stroke called. 1555: The patient was evaluated in room B1. Patient was taken immediately to CT scan and a focused history and physical were performed. CT of the head viewed by me showed no ICH. [facility]: The patient was evaluated in room B1. A complete history and physical exam was performed Cardiac monitoring: An order was placed for continuous cardiac monitoring. The monitor shows a rate of 100 with sinus rhythm interpreted by me Spoke with [facility] Dr. Munguia who will be on to evaluate the patient 1616: Discussed with Dr. Barnett radiology who agrees no ICH he states that there is a possible small clot in the left MCA branch and a possible small clot along the sylvian. Discussed these findings with Dr. Clayton Mcclellan teleneurology and she advises given TNKase. Administered Medications Discontinued Medications Tenecteplase 25 mg/ Syringe 5 mls @ 60 mls/min IV NOW ONE; Protocol Stop: 06/15/23 16:18 Last Admin: 06/15/23 16:18 Dose: 60 mls/min Documented By: AM Co-signed By: CORA Ioversol (Optiray 320 125ml) 119 ml IV ONCE ONE Stop: 06/15/23 16:04 Last Admin: 06/15/23 16:03 Dose: 119 ml Documented By: BIJAN Labetalol HCl (Labetalol Hcl Iv 5 Mg/Ml 20ml) Confirm Administered Dose 5 mg IV .STK-MED ONE Stop: 06/15/23 16:01 Last Admin: 06/15/23 16:29 Dose: Not Given Documented By: YAIR Miscellaneous (Stat Iv/Im) 1 each N/A NOW STA Stop: 06/15/23 16:07 Last Admin: 06/15/23 16:14 Dose: 1 each Documented By: AM Sodium Chloride (Sodium Chloride 0.9% 10ml Flush) 20 ml IV NOW STA Stop: 06/15/23 16:07 Last Admin: 06/15/23 16:18 Dose: 20 ml Documented By: AM Critical Care Time Critical Care Time: Yes Total Critical Care Time: 36 I have personally spent greater than 36 minutes of critical care time in the direct management of this patient. This includes bedside care, interpretation of diagnostic studies, and testing, discussion with consultants, patient, and family members, and other required patient management activities. This 36 minutes is in excess of all separately billable procedures. Medical Decision Making Laboratory Data Attestation: I reviewed the patient's lab results. 06/15/23 16:09 06/15/23 17:07 Lab Results 06/15/23 06/15/23 Range/Units 16:03 16:09 WBC 7.75 (4.8-10.8) K/ul RBC 4.41 L (4.70-6.10) M/uL Hgb 13.9 L (14.0-18.0) g/dl Hct 40.5 L (42.0-52.0) % MCV 91.8 (80.0-100.0) fL MCH 31.5 (25.0-34.0) pg MCHC 34.3 (32.0-36.0) g/dL RDW Std Deviation 48.2 H (36.4-46.3) fL RDW Coeff of Sim 14.5 (11.5-14.5) % Plt Count 143 (130-400) K/uL MPV 10.8 (9.4-12.4) fL Immature Gran % (Auto) 0.4 % Neut % (Auto) 69.9 % Lymph % (Auto) 17.5 % [place] % (Auto) 11.2 % Eos % (Auto) 0.6 % Baso % (Auto) 0.4 % Neut # (Auto) 5.41 (1.40-6.50) K/uL Lymph # (Auto) 1.36 (1.20-3.40) K/uL [place] # (Auto) 0.87 H (0.11-0.59) K/uL Eos # (Auto) 0.05 (0.00-0.50) K/uL Baso # (Auto) 0.03 (0.00-0.20) K/uL Immature Gran # (Auto) 0.03 (0.01-0.20) K/uL PT Cancelled INR Cancelled APTT Cancelled PTT Ratio Cancelled Sodium TNP Potassium TNP Chloride 97 L (98-107) mmol/L Carbon Dioxide 30 (21-32) mmol/L Anion Gap TNP BUN 13 (6-23) mg/dl Creatinine 1.05 (0.6-1.4) mg/dl Est Cr Clr Drug Dosing 90.7 ml/min Est GFR ( Amer) 84.7 ml/min Est GFR (Non-Af Amer) 73.1 ml/min BUN/Creatinine Ratio 12.4 (10-20) Glucose 117 H (70-99(Fasting)) mg/dl POC Glucose 121 H (70-99) mg/dl Calcium 9.1 (8.6-10.3) mg/dl Magnesium TNP Total Bilirubin 1.1 H (0.2-1.0) mg/dl AST TNP ALT 21 (7-52) U/L Alkaline Phosphatase TNP Troponin I High Sens 18.5 (0-20) pg/ml Total Protein 6.5 (6.0-8.3) gm/dl Albumin TNP Globulin TNP Albumin/Globulin Ratio TNP Blood Type Cancelled Antibody Screen Cancelled Imaging Data Attestation: I personally reviewed and interpreted this imaging study as follows: My Impression: CT of the head: No ICH Radiologist's Impression: Chest X-Ray 06/15/23 15:51 XR chest 1V portable HISTORY: 67 years-old Male neuro deficit, acute stroke suspected acute stroke like symptoms COMPARISON: 01/02/2021 TECHNIQUE: AP view of the chest FINDINGS: Cardiac silhouette is enlarged. Small moderate right pleural effusion with mild right basilar consolidation. Pulmonary vascular congestion. No pneumothorax. No acute fracture. IMPRESSION: 1. Cardiomegaly with pulmonary vascular congestion. 2. Mwtym-[id number] right pleural effusion with right basilar consolidation. ACT 112: Negative or not required by law. The above report was generated using voice recognition software. It may contain grammatical, syntax or spelling errors. Electronically signed by: Mina Vu M.D. 06/15/2023 5:[address] 06/15/23 15:[address] OF THE BRAIN; CT ANGIOGRAM OF THE BRAIN; CT ANGIOGRAM OF THE NECK CLINICAL HISTORY: Neurological deficit. Stroke like symptoms. COMPARISON STUDY: CT of the brain dated 03/11/2014. TECHNIQUE: Unenhanced axial CT scan of the brain is performed. Subsequently, following the IV administration of 119 of Optiray 320, CT angiogram of the head and neck was performed from the aortic arch to the vertex. Images are reviewed in the axial, sagittal, and coronal planes. 3-D MIPS images are created and assessed. IV contrast was administered without complication. All measurements were calculated based on NASCET criteria. A dose lowering technique was utilized adhering to the principles of ALARA. CT DOSE: 1243.49 mGy.cm FINDINGS: Brain parenchyma: There is age-related changes noting minimal microangiopathic disease. There is no hemorrhage or mass effect. There is no evidence of enhancing mass lesion on the angiogram phase images. The ventricles, sulci, and cisterns are prominent secondary to involutional change. Thapa-white matter differentiation is preserved. No extra-axial fluid collection is seen. Thoracic aorta: There is atherosclerotic calcification of the thoracic aorta. Visualized portions of the thoracic aorta are normal in caliber. The aortic arch demonstrates standard 3-vessel anatomy. Right carotid arterial system: The right common carotid artery is widely patent, as are the right internal and external carotid arteries. Calcified plaque is noted in the carotid bulb. Left carotid arterial system: The left common carotid artery is widely patent. There is advanced atherosclerotic plaque in the carotid bulb. This causes approximately 75% focal stenosis at the origin of the left internal carotid artery. The mid-distal portions of the left internal carotid artery are widely patent. There is also high-grade stenosis at the origin of the left external carotid artery. Vertebral arteries: The vertebral arteries are patent bilaterally and codominant. Subclavian arteries: Widely patent bilaterally. Intracranial vasculature: The internal carotid arteries are patent at the skull base, as are the anterior cerebral arteries. Suspect a small calcified thrombus within a peripheral branch of the left middle cerebral artery along the sylvian fissure. This is best seen on axial image #[address] angiogram examination. The middle cerebral arteries are otherwise patent bilaterally. The vertebrobasilar system and posterior cerebral arteries are patent. The vertebral arteries are codominant. No aneurysm is seen. Jugular veins: Patent bilaterally. Dural sinuses: Patent. Lung apices: A moderate right pleural effusion is partially visualized. Upper lobe lung parenchyma is otherwise clear as imaged. Soft tissues: The visualized pharyngeal soft tissues are normal in appearance noting angiographic phase technique. The oropharyngeal airway appears widely patent. The salivary and thyroid glands are normal in appearance. No cervical lymphadenopathy is seen. A 2.6 cm lipoma is noted in the left occipital scalp. Skeletal structures: The calvarium appears intact. The cervical spine is maintained noting multilevel spondylosis. Orbits: The bony orbits are intact. Orbital contents are normal as visualized noting bilateral ocular lens implants. Sinuses and mastoids: There is mild mucosal thickening within the maxillary antra. The remaining paranasal sinuses are clear. The mastoid air cells are well pneumatized. IMPRESSION: 1. Suspect a small calcified thrombus within a peripheral branch of the left middle cerebral artery along the sylvian fissure. There is focal vessel cut off at this site and this likely represents acute stroke. 2. There is no hemorrhage or mass effect. Thapa-white matter differentiation is maintained. 3. The remaining intracranial vessels are patent. 4. There is approximately 75% focal stenosis at the origin of the left internal carotid artery. 5. The right carotid systematic and the vertebral arteries are patent. 6. A right pleural effusion is partially imaged. 7. There is also high-grade stenosis at the origin of the left external carotid artery. ACT 112: Negative or not required by law. Electronically signed by: Navin Yip M.D. 06/15/2023 4:22 PM Head CTA 06/15/23 15:[address] OF THE BRAIN; CT ANGIOGRAM OF THE BRAIN; CT ANGIOGRAM OF THE NECK CLINICAL HISTORY: Neurological deficit. Stroke like symptoms. COMPARISON STUDY: CT of the brain dated 03/11/2014. TECHNIQUE: Unenhanced axial CT scan of the brain is performed. Subsequently, following the IV administration of 119 of Optiray 320, CT angiogram of the head and neck was performed from the aortic arch to the vertex. Images are reviewed in the axial, sagittal, and coronal planes. 3-D MIPS images are created and assessed. IV contrast was administered without complication. All measurements were calculated based on NASCET criteria. A dose lowering technique was utilized adhering to the principles of ALARA. CT DOSE: 1243.49 mGy.cm FINDINGS: Brain parenchyma: There is age-related changes noting minimal microangiopathic disease. There is no hemorrhage or mass effect. There is no evidence of enhancing mass lesion on the angiogram phase images. The ventricles, sulci, and cisterns are prominent secondary to involutional change. Thapa-white matter differentiation is preserved. No extra-axial fluid collection is seen. Thoracic aorta: There is atherosclerotic calcification of the thoracic aorta. Visualized portions of the thoracic aorta are normal in caliber. The aortic arch demonstrates standard 3-vessel anatomy. Right carotid arterial system: The right common carotid artery is widely patent, as are the right internal and external carotid arteries. Calcified plaque is noted in the carotid bulb. Left carotid arterial system: The left common carotid artery is widely patent. There is advanced atherosclerotic plaque in the carotid bulb. This causes approximately 75% focal stenosis at the origin of the left internal carotid artery. The mid-distal portions of the left internal carotid artery are widely patent. There is also high-grade stenosis at the origin of the left external carotid artery. Vertebral arteries: The vertebral arteries are patent bilaterally and codominant. Subclavian arteries: Widely patent bilaterally. Intracranial vasculature: The internal carotid arteries are patent at the skull base, as are the anterior cerebral arteries. Suspect a small calcified thrombus within a peripheral branch of the left middle cerebral artery along the sylvian fissure. This is best seen on axial image #[address] angiogram examination. The middle cerebral arteries are otherwise patent bilaterally. The vertebrobasilar system and posterior cerebral arteries are patent. The vertebral arteries are codominant. No aneurysm is seen. Jugular veins: Patent bilaterally. Dural sinuses: Patent. Lung apices: A moderate right pleural effusion is partially visualized. Upper lobe lung parenchyma is otherwise clear as imaged. Soft tissues: The visualized pharyngeal soft tissues are normal in appearance noting angiographic phase technique. The oropharyngeal airway appears widely patent. The salivary and thyroid glands are normal in appearance. No cervical lymphadenopathy is seen. A 2.6 cm lipoma is noted in the left occipital scalp. Skeletal structures: The calvarium appears intact. The cervical spine is maintained noting multilevel spondylosis. Orbits: The bony orbits are intact. Orbital contents are normal as visualized noting bilateral ocular lens implants. Sinuses and mastoids: There is mild mucosal thickening within the maxillary antra. The remaining paranasal sinuses are clear. The mastoid air cells are well pneumatized. IMPRESSION: 1. Suspect a small calcified thrombus within a peripheral branch of the left middle cerebral artery along the sylvian fissure. There is focal vessel cut off at this site and this likely represents acute stroke. 2. There is no hemorrhage or mass effect. Thapa-white matter differentiation is maintained. 3. The remaining intracranial vessels are patent. 4. There is approximately 75% focal stenosis at the origin of the left internal carotid artery. 5. The right carotid systematic and the vertebral arteries are patent. 6. A right pleural effusion is partially imaged. 7. There is also high-grade stenosis at the origin of the left external carotid artery. ACT 112: Negative or not required by law. Electronically signed by: Navin Yip M.D. 06/15/2023 4:22 PM Neck CTA 06/15/23 15:[address] OF THE BRAIN; CT ANGIOGRAM OF THE BRAIN; CT ANGIOGRAM OF THE NECK CLINICAL HISTORY: Neurological deficit. Stroke like symptoms. COMPARISON STUDY: CT of the brain dated 03/11/2014. TECHNIQUE: Unenhanced axial CT scan of the brain is performed. Subsequently, following the IV administration of 119 of Optiray 320, CT angiogram of the head and neck was performed from the aortic arch to the vertex. Images are reviewed in the axial, sagittal, and coronal planes. 3-D MIPS images are created and assessed. IV contrast was administered without complication. All measurements were calculated based on NASCET criteria. A dose lowering technique was utilized adhering to the principles of ALARA. CT DOSE: 1243.49 mGy.cm FINDINGS: Brain parenchyma: There is age-related changes noting minimal microangiopathic disease. There is no hemorrhage or mass effect. There is no evidence of enhancing mass lesion on the angiogram phase images. The ventricles, sulci, and cisterns are prominent secondary to involutional change. Thapa-white matter differentiation is preserved. No extra-axial fluid collection is seen. Thoracic aorta: There is atherosclerotic calcification of the thoracic aorta. Visualized portions of the thoracic aorta are normal in caliber. The aortic arch demonstrates standard 3-vessel anatomy. Right carotid arterial system: The right common carotid artery is widely patent, as are the right internal and external carotid arteries. Calcified plaque is noted in the carotid bulb. Left carotid arterial system: The left common carotid artery is widely patent. There is advanced atherosclerotic plaque in the carotid bulb. This causes approximately 75% focal stenosis at the origin of the left internal carotid artery. The mid-distal portions of the left internal carotid artery are widely patent. There is also high-grade stenosis at the origin of the left external carotid artery. Vertebral arteries: The vertebral arteries are patent bilaterally and codominant. Subclavian arteries: Widely patent bilaterally. Intracranial vasculature: The internal carotid arteries are patent at the skull base, as are the anterior cerebral arteries. Suspect a small calcified thrombus within a peripheral branch of the left middle cerebral artery along the sylvian fissure. This is best seen on axial image #[address] angiogram examination. The middle cerebral arteries are otherwise patent bilaterally. The vertebrobasilar system and posterior cerebral arteries are patent. The vertebral arteries are codominant. No aneurysm is seen. Jugular veins: Patent bilaterally. Dural sinuses: Patent. Lung apices: A moderate right pleural effusion is partially visualized. Upper lobe lung parenchyma is otherwise clear as imaged. Soft tissues: The visualized pharyngeal soft tissues are normal in appearance noting angiographic phase technique. The oropharyngeal airway appears widely patent. The salivary and thyroid glands are normal in appearance. No cervical lymphadenopathy is seen. A 2.6 cm lipoma is noted in the left occipital scalp. Skeletal structures: The calvarium appears intact. The cervical spine is maintained noting multilevel spondylosis. Orbits: The bony orbits are intact. Orbital contents are normal as visualized noting bilateral ocular lens implants. Sinuses and mastoids: There is mild mucosal thickening within the maxillary antra. The remaining paranasal sinuses are clear. The mastoid air cells are well pneumatized. IMPRESSION: 1. Suspect a small calcified thrombus within a peripheral branch of the left middle cerebral artery along the sylvian fissure. There is focal vessel cut off at this site and this likely represents acute stroke. 2. There is no hemorrhage or mass effect. Thapa-white matter differentiation is maintained. 3. The remaining intracranial vessels are patent. 4. There is approximately 75% focal stenosis at the origin of the left internal carotid artery. 5. The right carotid systematic and the vertebral arteries are patent. 6. A right pleural effusion is partially imaged. 7. There is also high-grade stenosis at the origin of the left external carotid artery. ACT 112: Negative or not required by law. Electronically signed by: Navin Yip M.D. 06/15/2023 4:22 PM ECG Data Attestation: I personally reviewed and interpreted this ECG as follows: Additional Comments: Sinus arhythmia with a rate of 107. [place] 110 QRS [address] elevation or ST depression. [facility] Narrative 1548: Received a call from EMS about stroke like symptoms of the patient. Code stroke called. 1555: The patient was evaluated in room B1. Patient was taken immediately to CT scan and a focused history and physical were performed. CT of the head viewed by me showed no ICH. [facility]. [facility]: The patient was evaluated in room B1. A complete history and physical exam was performed Cardiac monitoring: An order was placed for continuous cardiac monitoring. The monitor shows a rate of 100 with sinus rhythm interpreted by me Spoke with [facility] Dr. Munguia who will be on to evaluate the patient 1616: Discussed with Dr. Barnett radiology who agrees no ICH he states that there is a possible small clot in the left MCA branch and a possible small clot along the sylvian. Discussed these findings with Dr. Clayton Mcclellan teleneurology and she advises given TNKase. Impression & Plan Cerebrovascular accident Discharge Plan Visit Data Chief Complaint: Stroke Alert Stated Complaint: STROKE ALERT ED Provider: Paco Caceres Discharge Problem: Cerebrovascular accident Patient Disposition: Admitted As Inpatient Discharge Problem: Cerebrovascular accident Qualifiers: CVA mechanism: unspecified Qualified Code(s): I63.9 - Cerebral infarction, unspecified
--- NOTE | 2023-06-15 19:06 | Critical Care Consultation ---
Date of Consultation June 15, 2023 Assessment & Plan (1) Acute stroke due to embolism of left middle cerebral artery: (2) CAD (coronary artery disease): (3) HTN (hypertension): (4) Dyslipidemia: (5) Hypertension: (6) Dyslipidemia: Plan Reason Critically Ill: 67 YOM presents to the EMD for onset of dysarthria, aphasia, right facial droop as a stroke alert. Was deemed Thrombolytic candidate secondary to M3 LT MCA CVA. Patient received Thrombolytics at 1618. Neuro - Acute CVA Calcified thrombus LEFT MCA M3 distribution CAM ICU: NEGATIVE - Post thrombolytics at 1618- Current NIHSS- 5 (Facial droop, aphasia, dysarthria, ataxia) - Risk factors- CAD, HTN, HLD, previous smoker, obesity - CTA of head and neck- M3 distribution, LICA 75% stenosis at origin- Vascular consultation recommended - Blood pressure control with Labetalol as needed - MRI with left frontal lobe - acute/subacute infarcts- M3 branch left MCA thrombosed, mirovascular ischemic changes - Consider re-trial or transition to high intensity statin when able to to lerate PO- speech evaluation pending- Chart review reports intolerance to atorvastatin and rosuvastatin- currently on simvastatin and zetia. - ASA 24 hours post thrombolytic- continue defer to neurology for addition of Plavix - Lipid panel in AM - ECHO was reportedly done at the [employer]cher [employer] office 06/15/23- consider if repeat is needed for shunt evaluation - STOP BANG- 4 (AGE, Obesity, HTN,) HIGH RISK- recommend evaluation for DAVIS as outpatient - Telemetry monitoring x24 hours- consider addition of watermaster arrhythmia monitoring if applicable - HGB A1c in morning- therapy induction as applicable Cardiac - CAD, HTN, HLD, LICA stenosis 75% at origin, High grade stenosis of LECA As above - restart metoprolol as early as able to tolerate PO- consider IV dosing in morning if oral intake evaluation will be prolonged - Follow blood pressure control for possible need for better control at baseline Respiratory - Plueral effusion - Patient with small pleural effusion on CXR- reports recently being treated for bronchitis - Reports he recently had PFTs done at [facility] outpatient, will attempt to obtain - with history of smoking as well as mouth cancer, consider obtaining non-con ct scan of chest to better evaluate lung burnett and pleural effusion - Albuterol PRN GI - No acute needs - NPO for now until speech/swallow evaluation RENAL/LYTES - No acute needs - ICU electrolyte protocol - NO acute needs at this time ENDO - No acute needs - Patient with metabolic syndrome - HGBA a1c in morning- directed therapy if needed HEME - no acute needs ID - No concern for infection at this time LINES/IV ACCESS - PIV Continue use of these lines DVT PROPHYLAXIS - SCDS, Chemoprophylaxis contraindicated at this time secondary to thrombolytic administration DISPO: ICU 24 hour post thrombolytic administration I have personally spent 50 minutes of critical care time in the direct management of this patient. This is a life/limb threatening event. This includes time spent evaluating patient, direct bedside care, chart review, placing orders, interpretation of diagnostic studies, discussion with consultants, patient, and family members, as well as other required patient management activities. This time is exclusive of all separately billable procedures, and teaching time and separate from and in addition to any other critical care service time. Thank you for allowing us to participate in the care of this patient. Please refer to my attending physician's documentation for any further recommendations. History of Present Illness Reason for Consultation: Stroke s/p Thrombolytic administration Requesting Physician: Leyla Sanon MD Attending Physician: Leyla Sanon MD History of Present Illness 67 YOM with medical history of: COVID 19 (01/06), CAD (ND 1996 with sent to Circ, LAD stent 2018, LALIT to RCA 2019), Avascular necrosis of hip, HLD, HTN. Patient presents to the EMD on 06/15/23 secondary for reports of him being at his [employer]cher [employer] office, and while there getting an ECHO, he reportedly had difficulty speaking associated with word finding issues, slurred speech, and right sided facial droop. He was brought to the EMD via EMS as a stroke alert. This appears that EMS contacted the EMD at 1548 and following imaging and telestroke consultation with [facility] decision was made to give thrombolytics at 1616. Head CT was interpreted with calcified clot in the LEFT MCA as well as CTA of the head and neck with 75% LICA stenosis. No ICAD interpreted on current imaging. Patient will be admitted to the ICU for frequent neurological examinations following thrombolytics, hemodynamic monitoring, and further risk stratification per primary service. Patient reports that he has been following up with his [employer]cher [employer] for evaluation of dyspnea with exertion and was recently treated for a bronchitis with steroids. 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 Previous history of smoking CODE: FULL Allergies Allergy/AdvReac Type Severity Reaction Status Date / Time No Known Allergies Allergy Unknown ` Verified 06/15/23 17:28 Home Medications Medication Instructions Recorded Confirmed Type aspirin 81 mg tablet,delayed 81 mg PO QAM #30 tabs 02/17/20 06/15/23 Rx release ezetimibe 10 mg tablet (Zetia) 10 mg PO QAM #30 tabs 02/17/20 06/15/23 Rx nitroglycerin 0.4 mg sublingual 0.4 mg sublingual PRN PRN chest 02/17/20 06/15/23 Rx tablet (Nitrostat) pain #30 tabs allopurinol 300 mg tablet 300 mg PO HS 01/02/21 06/15/23 History losartan 100 mg tablet 100 mg PO DAILY 01/02/21 06/15/23 History metoprolol succinate 50 mg 25 mg PO DAILY 01/02/21 06/15/23 History tablet,extended release 24 hr simvastatin 40 mg tablet 40 mg PO HS 01/02/21 06/15/23 History vitamin B complex 1 tab PO DAILY 01/02/21 06/15/23 History albuterol sulfate 90 mcg/actuation 2 puff inhalation DIRECTED PRN 06/15/23 06/15/23 History aerosol inhaler Shortness Of Breath Or Wheezing econazole 1 % topical cream 1 applic topical 2XWK 06/15/23 06/15/23 History furosemide 40 mg tablet (Lasix) 40 mg PO DAILY 06/15/23 06/15/23 History vitamins A,C,K-kryn-fkylmc 4,296 1 cap PO QAM 06/15/23 06/15/23 History mcg-226 mg-90 mg capsule (PreserVision AREDS) Patient History Medical History (Updated 06/15/23 @ 19:45 by AMANDA Ott) Mouth cancer Neuropathic foot ulcer Nonsustained ventricular tachycardia History of tobacco abuse Hypertension Dyslipidemia NSTEMI (non-ST elevated myocardial infarction) Total of 4. 1996 Circumflex, 02/16/2020 Proximal LAD, 03/07/2020 Proximal and Mid RCA CAD (coronary artery disease) NSVT (nonsustained ventricular tachycardia) Ischemic cardiomyopathy Surgical History History of colonoscopy with polypectomy multiple - prior villous adenoma in 2007 History of oral surgery excision of right mouth floor lesion, right submandibular gland, suprahyoid lymphadenectomy - 2016 History of cataract extraction History of appendectomy Stented coronary artery H/O heart artery stent Family History Father Heart disease Prostate cancer Brother Heart disease Social History Smoking Status: Former smoker Second Hand Exposure: No; Do You Dip or Chew Tobacco: No; Hx Alcohol Use: Yes Alcohol type: beer Hx Substance Use: No Preferred Language: Chilean Communication Ability: Effective Book Jogger Required: No Beliefs That Will Affect Care: None marital status: Current Living Situation: Spouse Other Information That Helps Us Care for You: No Feels Safe at Home: Yes Safety Concerns: Feels Safe At This Time Assistive Devices: None Review of Systems Review of Systems: REVIEW OF SYSTEMS: Constitutional: No fever, sweats or chills Eyes: No diplopia, no worsening or blurred vision ENT: (+) hx mouth cancer, dry mouth, normal hearing, no trouble swallowing Respiratory: (+) chronic cough, dyspnea on exertion, NO sputum, dyspnea on exertion Cardiovascular: No chest pain, tightness or palpitations Abdomen: No pain, nausea, vomiting, diarrhea or constipation Musculoskeletal: No joint pain, calf pain, swelling Neurologic: (+) facial droop, speech difficulty, and clumsiness of right side, No weakness, numbness/tingling, or balance problems Psychiatric: No anxiety or depression Skin: No rash or itch Physical Exam Physical Exam: PHYSICAL EXAM: General: awake, alert, no apparent distress Head: Normocephalic, atraumatic Neuro: AAO x 3, speech appropriate and mild dysarthria, right sided facial droop, strength intact bilaterally 5/5 LUE, LLE, RLE, 4/5 strength RUE, sensation intact and equal all extremities and dermatomes, no pronator drift, mild ataxia to the right upper extremity, Chest: equal rise and fall of the chest, no accessory muscle use, no heaves or thrills, Clear to auscultation, on room air, Cardiac: Regular rate and rhythm, telemetry reviewed- NSR, skin warm dry, cap refill <3 seconds, peripheral pulses +2 no JVD, no murmur, no edema GI: NABS x 4 quadrants, soft, nontender to palpation, no rebound, guarding or tenderness : Spontaneously voiding, no pain, no CVA tenderness, Psych: Normal mood and affect Skin: no rash or erythema Results & Data Results & Data Vital Signs (Past 12 Hours) Vital Signs Pulse Resp BP Pulse Ox O2 Del Method O2 Flow Rate 06/15/23 17:20 82 19 95 06/15/23 17:15 81 21 95 06/15/23 17:15 145/78 H 06/15/23 17:10 99 H 19 93 06/15/23 17:06 88 20 95 06/15/23 17:06 148/89 H 06/15/23 17:05 92 H 21 94 06/15/23 17:00 100 H 26 H 94 06/15/23 16:55 95 H 28 H 95 06/15/23 16:50 101 H 23 93 06/15/23 16:45 158/96 H 06/15/23 16:45 93 H 24 95 06/15/23 16:40 94 H 21 93 06/15/23 16:40 157/98 H 06/15/23 16:36 96 H 22 94 06/15/23 16:36 159/119 H 06/15/23 16:35 99 H 20 92 06/15/23 16:30 93 H 20 94 06/15/23 16:30 147/85 H 06/15/23 16:25 174/73 H 06/15/23 16:25 94 H 19 94 06/15/23 16:22 94 H 21 95 06/15/23 16:22 161/84 H 06/15/23 16:20 100 H 22 94 06/15/23 16:19 161/89 H 06/15/23 16:19 95 H 24 95 06/15/23 16:16 99/75 L 06/15/23 16:16 105 H 23 95 06/15/23 16:15 97 H 21 95 06/15/23 16:14 128/82 06/15/23 16:14 105 H 22 06/15/23 16:10 108 H 21 100 06/15/23 16:09 105 H 29 H 100 06/15/23 16:08 107 H 06/15/23 16:08 100 Room Air 0 06/15/23 16:03 100 H 23 182/83 H 100 Room Air Laboratory Results Abnormal lab results 06/15/23 06/15/23 06/15/23 Range/Units 16:03 16:09 17:07 RBC 4.41 L (4.70-6.10) M/uL Hgb 13.9 L (14.0-18.0) g/dl Hct 40.5 L (42.0-52.0) % RDW Std Deviation 48.2 H (36.4-46.3) fL [place] # (Auto) 0.87 H (0.11-0.59) K/uL PT 12.1 H (9.0-12.0) Seconds Sodium 135 L (136-145) mmol/L Chloride 97 L (98-107) mmol/L Glucose 117 H (70-99(Fasting)) mg/dl POC Glucose 121 H (70-99) mg/dl Total Bilirubin 1.1 H (0.2-1.0) mg/dl B-Natriuretic Peptide (0-100) pg/ml 06/15/23 Range/Units 17:30 RBC (4.70-6.10) M/uL Hgb (14.0-18.0) g/dl Hct (42.0-52.0) % RDW Std Deviation (36.4-46.3) fL [place] # (Auto) (0.11-0.59) K/uL PT (9.0-12.0) Seconds Sodium (136-145) mmol/L Chloride (98-107) mmol/L Glucose (70-99(Fasting)) mg/dl POC Glucose (70-99) mg/dl Total Bilirubin (0.2-1.0) mg/dl B-Natriuretic Peptide 1011 H (0-100) pg/ml Diagnostic Findings Chest X-Ray 06/15/23 15:51 XR chest 1V portable HISTORY: 67 years-old Male neuro deficit, acute stroke suspected acute stroke like symptoms COMPARISON: 01/02/2021 TECHNIQUE: AP view of the chest FINDINGS: Cardiac silhouette is enlarged. Small moderate right pleural effusion with mild right basilar consolidation. Pulmonary vascular congestion. No pneumothorax. No acute fracture. IMPRESSION: 1. Cardiomegaly with pulmonary vascular congestion. 2. Ycgtd-yr-ypwvwboa right pleural effusion with right basilar consolidation. ACT 112: Negative or not required by law. The above report was generated using voice recognition software. It may contain grammatical, syntax or spelling errors. Electronically signed by: Mina Vu M.D. 06/15/2023 5:[address] 06/15/23 15:[address] OF THE BRAIN; CT ANGIOGRAM OF THE BRAIN; CT ANGIOGRAM OF THE NECK CLINICAL HISTORY: Neurological deficit. Stroke like symptoms. COMPARISON STUDY: CT of the brain dated 03/11/2014. TECHNIQUE: Unenhanced axial CT scan of the brain is performed. Subsequently, following the IV administration of 119 of Optiray 320, CT angiogram of the head and neck was performed from the aortic arch to the vertex. Images are reviewed in the axial, sagittal, and coronal planes. 3-D MIPS images are created and assessed. IV contrast was administered without complication. All measurements were calculated based on NASCET criteria. A dose lowering technique was utilized adhering to the principles of ALARA. CT DOSE: 1243.49 mGy.cm FINDINGS: Brain parenchyma: There is age-related changes noting minimal microangiopathic disease. There is no hemorrhage or mass effect. There is no evidence of enhancing mass lesion on the angiogram phase images. The ventricles, sulci, and cisterns are prominent secondary to involutional change. Thapa-white matter differentiation is preserved. No extra-axial fluid collection is seen. Thoracic aorta: There is atherosclerotic calcification of the thoracic aorta. Visualized portions of the thoracic aorta are normal in caliber. The aortic arch demonstrates standard 3-vessel anatomy. Right carotid arterial system: The right common carotid artery is widely patent, as are the right internal and external carotid arteries. Calcified plaque is noted in the carotid bulb. Left carotid arterial system: The left common carotid artery is widely patent. T here is advanced atherosclerotic plaque in the carotid bulb. This causes approximately 75% focal stenosis at the origin of the left internal carotid artery. The mid-distal portions of the left internal carotid artery are widely patent. There is also high-grade stenosis at the origin of the left external carotid artery. Vertebral arteries: The vertebral arteries are patent bilaterally and codomin ant. Subclavian arteries: Widely patent bilaterally. Intracranial vasculature: The internal carotid arteries are patent at the skull base, as are the anterior cerebral arteries. Suspect a small calcified thrombus within a peripheral branch of the left middle cerebral artery along the sylvian fissure. This is best seen on axial image #[address]ogram examination. The middle cerebral arteries are otherwise patent bilaterally. The vertebrobasilar system and posterior cerebral arteries are patent. The vertebral arteries are codominant. No aneurysm is seen. Jugular veins: Patent bilaterally. Dural sinuses: Patent. Lung apices: A moderate right pleural effusion is partially visualized. Upper lobe lung parenchyma is otherwise clear as imaged. Soft tissues: The visualized pharyngeal soft tissues are normal in appearance noting angiographic phase technique. The oropharyngeal airway appears widely patent. The salivary and thyroid glands are normal in appearance. No cervical l ymphadenopathy is seen. A 2.6 cm lipoma is noted in the left occipital scalp. Skeletal structures: The calvarium appears intact. The cervical spine is maintained noting multilevel spondylosis. Orbits: The bony orbits are intact. Orbital contents are normal as visualized noting bilateral ocular lens implants. Sinuses and mastoids: There is mild mucosal thickening within the maxillary antra. The remaining paranasal sinuses are clear. The mastoid air cells are well pneumatized. IMPRESSION: 1. Suspect a small calcified thrombus within a peripheral branch of the left middle cerebral artery along the sylvian fissure. There is focal vessel cut off at this site and this likely represents acute stroke. 2. There is no hemorrhage or mass effect. Thapa-white matter differentiation is maintained. 3. The remaining intracranial vessels are patent. 4. There is approximately 75% focal stenosis at the origin of the left internal carotid artery. 5. The right carotid systematic and the vertebral arteries are patent. 6. A right pleural effusion is partially imaged. 7. There is also high-grade stenosis at the origin of the left external carotid artery. ACT 112: Negative or not required by law. Electronically signed by: Navin Yip M.D. 06/15/2023 4:22 PM Head CTA 06/15/23 15:[address] OF THE BRAIN; CT ANGIOGRAM OF THE BRAIN; CT ANGIOGRAM OF THE NECK CLINICAL HISTORY: Neurological deficit. Stroke like symptoms. COMPARISON STUDY: CT of the brain dated 03/11/2014. TECHNIQUE: Unenhanced axial CT scan of the brain is performed. Subsequently, following the IV administration of 119 of Optiray 320, CT angiogram of the head and neck was performed from the aortic arch to the vertex. Images are reviewed in the axial, sagittal, and coronal planes. 3-D MIPS images are created and assessed. IV contrast was administered without complication. All measurements were calculated based on NASCET criteria. A dose lowering technique was utilized adhering to the principles of ALARA. CT DOSE: 1243.49 mGy.cm FINDINGS: Brain parenchyma: There is age-related changes noting minimal microangiopathic disease. There is no hemorrhage or mass effect. There is no evidence of enhancing mass lesion on the angiogram phase images. The ventricles, sulci, and cisterns are prominent secondary to involutional change. Thapa-white matter differentiation is preserved. No extra-axial fluid collection is seen. Thoracic aorta: There is atherosclerotic calcification of the thoracic aorta. Visualized portions of the thoracic aorta are normal in caliber. The aortic arch demonstrates standard 3-vessel anatomy. Right carotid arterial system: The right common carotid artery is widely patent, as are the right internal and external carotid arteries. Calcified plaque is noted in the carotid bulb. Left carotid arterial system: The left common carotid artery is widely patent. There is advanced atherosclerotic plaque in the carotid bulb. This causes approximately 75% focal stenosis at the origin of the left internal carotid artery. The mid-distal portions of the left internal carotid artery are widely patent. There is also high-grade stenosis at the origin of the left external carotid artery. Vertebral arteries: The vertebral arteries are patent bilaterally and codominant. Subclavian arteries: Widely patent bilaterally. Intracranial vasculature: The internal carotid arteries are patent at the skull base, as are the anterior cerebral arteries. Suspect a small calcified thrombus within a peripheral branch of the left middle cerebral artery along the sylvian fissure. This is best seen on axial image #[address] angiogram examination. The middle cerebral arteries are otherwise patent bilaterally. The vertebrobasilar system and posterior cerebral arteries are patent. The vertebral arteries are codominant. No aneurysm is seen. Jugular veins: Patent bilaterally. Dural sinuses: Patent. Lung apices: A moderate right pleural effusion is partially visualized. Upper lobe lung parenchyma is otherwise clear as imaged. Soft tissues: The visualized pharyngeal soft tissues are normal in appearance noting angiographic phase technique. The oropharyngeal airway appears widely patent. The salivary and thyroid glands are normal in appearance. No cervical lymphadenopathy is seen. A 2.6 cm lipoma is noted in the left occipital scalp. Skeletal structures: The calvarium appears intact. The cervical spine is maintained noting multilevel spondylosis. Orbits: The bony orbits are intact. Orbital contents are normal as visualized noting bilateral ocular lens implants. Sinuses and mastoids: There is mild mucosal thickening within the maxillary antra. The remaining paranasal sinuses are clear. The mastoid air cells are well pneumatized. IMPRESSION: 1. Suspect a small calcified thrombus within a peripheral branch of the left middle cerebral artery along the sylvian fissure. There is focal vessel cut off at this site and this likely represents acute stroke. 2. There is no hemorrhage or mass effect. Thapa-white matter differentiation is maintained. 3. The remaining intracranial vessels are patent. 4. There is approximately 75% focal stenosis at the origin of the left internal carotid artery. 5. The right carotid systematic and the vertebral arteries are patent. 6. A right pleural effusion is partially imaged. 7. There is also high-grade stenosis at the origin of the left external carotid artery. ACT 112: Negative or not required by law. Electronically signed by: Navin Yip M.D. 06/15/2023 4:22 PM Neck CTA 06/15/23 15:[address] OF THE BRAIN; CT ANGIOGRAM OF THE BRAIN; CT ANGIOGRAM OF THE NECK CLINICAL HISTORY: Neurological deficit. Stroke like symptoms. COMPARISON STUDY: CT of the brain dated 03/11/2014. TECHNIQUE: Unenhanced axial CT scan of the brain is performed. Subsequently, following the IV administration of 119 of Optiray 320, CT angiogram of the head and neck was performed from the aortic arch to the vertex. Images are reviewed in the axial, sagittal, and coronal planes. 3-D MIPS images are created and as sessed. IV contrast was administered without complication. All measurements were calculated based on NASCET criteria. A dose lowering technique was utilized adhering to the principles of ALARA. CT DOSE: 1243.49 mGy.cm FINDINGS: Brain parenchyma: There is age-related changes noting minimal microangiopathic disease. There is no hemorrhage or mass effect. There is no evidence of enhancing mass lesion on the angiogram phase images. The ventricles, sulci, and cisterns are prominent secondary to involutional change. Thapa-white matter differentiation is preserved. No extra-axial fluid collection is seen. Thoracic aorta: There is atherosclerotic calcification of the thoracic aorta. Visualized portions of the thoracic aorta are normal in caliber. The aortic arch demonstrates standard 3-vessel anatomy. Right carotid arterial system: The right common carotid artery is widely patent, as are the right internal and external carotid arteries. Calcified plaque is noted in the carotid bulb. Left carotid arterial system: The left common carotid artery is widely patent. There is advanced atherosclerotic plaque in the carotid bulb. This causes approximately 75% focal stenosis at the origin of the left internal carotid artery. The mid-distal portions of the left internal carotid artery are widely patent. There is also high-grade stenosis at the origin of the left external carotid artery. Vertebral arteries: The vertebral arteries are patent bilaterally and codominant. Subclavian arteries: Widely patent bilaterally. Intracranial vasculature: The internal carotid arteries are patent at the skull base, as are the anterior cerebral arteries. Suspect a small calcified thrombus within a peripheral branch of the left middle cerebral artery along the sylvian fissure. This is best seen on axial image #[address] angiogram examination. The middle cerebral arteries are otherwise patent bilaterally. The vertebrobasilar system and posterior cerebral arteries are patent. The vertebral arteries are codominant. No aneurysm is seen. Jugular veins: Patent bilaterally. Dural sinuses: Patent. Lung apices: A moderate right pleural effusion is partially visualized. Upper lobe lung parenchyma is otherwise clear as imaged. Soft tissues: The visualized pharyngeal soft tissues are normal in appearance noting angiographic phase technique. The oropharyngeal airway appears widely patent. The salivary and thyroid glands are normal in appearance. No cervical lymphadenopathy is seen. A 2.6 cm lipoma is noted in the left occipital scalp. Skeletal structures: The calvarium appears intact. The cervical spine is maintained noting multilevel spondylosis. Orbits: The bony orbits are intact. Orbital contents are normal as visualized noting bilateral ocular lens implants. Sinuses and mastoids: There is mild mucosal thickening within the maxillary antra. The remaining paranasal sinuses are clear. The mastoid air cells are well pneumatized. IMPRESSION: 1. Suspect a small calcified thrombus within a peripheral branch of the left middle cerebral artery along the sylvian fissure. There is focal vessel cut off at this site and this likely represents acute stroke. 2. There is no hemorrhage or mass effect. Thapa-white matter differentiation is maintained. 3. The remaining intracranial vessels are patent. 4. There is approximately 75% focal stenosis at the origin of the left internal carotid artery. 5. The right carotid systematic and the vertebral arteries are patent. 6. A right pleural effusion is partially imaged. 7. There is also high-grade stenosis at the origin of the left external carotid artery. ACT 112: Negative or not required by law. Electronically signed by: Navin Yip M.D. 06/15/2023 4:22 PM Brain MRI 06/15/23 17:23 MR brain wo con HISTORY: 67 years-old Male stroke acute strokelike symptoms COMPARISON: Head CT of same day TECHNIQUE: Multiplanar multisequence MRI the brain was obtained without the use of IV contrast. FINDINGS: Ill-defined areas of slightly increased diffusion-weighted signal and decreased ADC signal noted within the left frontal lobe cortex measuring up to approximately 2 cm with possible extension into the operculum/insular ribbon. Involutional changes with mild T2/FLAIR hyperintense foci suggestive of probable chronic microvascular ischemic disease. No pathologic loosening artifact. No acute intracranial hemorrhage, midline shift, abnormal extra-axial collection, hydrocephalus or intra-axial mass. Cerebral venous sinuses appear patent. Thrombosed distal left MCA branches again noted, better seen on the comparison CTA. Prior bilateral lens repair. The skull, orbits and soft tissues are otherwise unremarkable. Mastoid air cells are clear. Mild mucosal thickening of the paranasal sinuses. IMPRESSION: 1. Ill-defined areas of slightly increased diffusion-weighted signal within the left frontal lobe suggestive of acute or subacute infarcts. 2. Involutional changes with mild chronic microvascular ischemic disease. 3. Thrombosed M3 branch of the left middle cerebral artery, better evaluated on the comparison CTA of the head. ACT 112: Negative or not required by law. The above report was generated using voice recognition software. It may contain grammatical, syntax or spelling errors. Electronically signed by: Mina Vu M.D. 06/15/2023 7:39 PM Medications Administered Discontinued Medications Tenecteplase 25 mg/ Syringe 5 mls @ 60 mls/min IV NOW ONE; Protocol Stop: 06/15/23 16:18 Last Admin: 06/15/23 16:18 Dose: 60 mls/min Documented By: AM Co-signed By: CORA Ioversol (Optiray 320 125ml) 119 ml IV ONCE ONE Stop: 06/15/23 16:04 Last Admin: 06/15/23 16:03 Dose: 119 ml Documented By: PLW Labetalol HCl (Labetalol Hcl Iv 5 Mg/Ml 20ml) Confirm Administered Dose 5 mg IV .STK-MED ONE Stop: 06/15/23 16:01 Last Admin: 06/15/23 16:29 Dose: Not Given Documented By: AM Miscellaneous (Stat Iv/Im) 1 each N/A NOW STA Stop: 06/15/23 16:07 Last Admin: 06/15/23 16:14 Dose: 1 each Documented By: AM Sodium Chloride (Sodium Chloride 0.9% 10ml Flush) 20 ml IV NOW STA Stop: 06/15/23 16:07 Last Admin: 06/15/23 16:18 Dose: 20 ml Documented By: AM ECG Additional Comments: Sinus tachycardia with frequent Premature ventricular complexes and Fusion complexes ST & T wave abnormality, consider inferior ischemia Abnormal ECG When compared with ECG of 02-JAN-2021 15:11, Significant changes have occurred Coding Level of Care Code 03259 CRITICAL CARE 1ST 30-74M Diagnoses Acute stroke due to embolism of left middle cerebral artery I63.412 CAD (coronary artery disease) I25.10 Essential hypertension I10 Hypertension type: essential hypertension Dyslipidemia E78.5 (3) HTN (hypertension) Hypertension type: essential hypertension Qualified Code(s): I10 - Essential (primary) hypertension
[2023-06-15] MEDS ORDERED: LABETALOL HCL IV 5 MG/ML 20ML IV PRN (19:34)
[2023-06-15] MEDS ORDERED: PHARMACIST DISCHARGE MED REC CONSULT PRN (19:34)
[2023-06-15] MEDS ORDERED: NITROGLYCERIN SL 0.4 MG/TAB TAB SL PRN (19:36)
[2023-06-15] MEDS ORDERED: ALBUTEROL HFA 8 GM INHALER INH PRN (19:36)
--- NOTE | 2023-06-15 19:40 | Magnetic Resonance Report ---
MR brain wo con HISTORY: 67 years-old Male stroke acute strokelike symptoms COMPARISON: Head CT of same day TECHNIQUE: Multiplanar multisequence MRI the brain was obtained without the use of IV contrast. FINDINGS: Ill-defined areas of slightly increased diffusion-weighted signal and decreased ADC signal noted with in the left frontal lobe cortex measuring up to approximately 2 cm with possible extension into the o perculum/insular ribbon. Involutional changes with mild T2/FLAIR hyperintense foci suggestive of prob able chronic microvascular ischemic disease. No pathologic loosening artifact. No acute intracranial hemorrhage, midline shift, abnormal extra-axial collection, hydrocephalus or intra-axial mass. Cerebral venous sinuses appear patent. Thrombosed distal left MCA branches again noted, better seen o n the comparison CTA. Prior bilateral lens repair. The skull, orbits and soft tissues are otherwise u nremarkable. Mastoid air cells are clear. Mild mucosal thickening of the paranasal sinuses. IMPRESSION: 1. Ill-defined areas of slightly increased diffusion-weighted signal within the left frontal lobe sug gestive of acute or subacute infarcts. 2. Involutional changes with mild chronic microvascular ischemic disease. 3. Thrombosed M3 branch of the left middle cerebral artery, better evaluated on the comparison CTA of the head. ACT 112: Negative or not required by law. The above report was generated using voice recognition software. It may contain grammatical, syntax o r spelling errors. Electronically signed by: Mina Vu M.D. 06/15/2023 7:39 PM
[2023-06-15] MEDS ORDERED: No Aspirin within 24hrs of THROMBOLYTIC-Stroke SCH (19:45)
[2023-06-15] MEDS: SIMVASTATIN 40 MG TAB PO SCH (20:32)
[2023-06-15] MEDS: MAGNESIUM SULFATE / D5W 1 GM/100 ML BAG IV SCH ×2 (20:54→22:45)
[2023-06-16] MEDS: MAGNESIUM SULFATE / D5W 1 GM/100 ML BAG IV SCH (00:40)
--- OUTSIDE RECORDS SUMMARY | 2023-06-16 01:41 | External Medical Summary ---
Author Name Unknown Address Unknown Organization K0G:[facility] [address] [place] [address] Laboratory Report Ordering Provider Test Date Status LAMONTE BURNETT 06/15/2023 14:19:27 Final Observation Date Value Abnormality Reference (Units ) Status BUN 06/15/2023 14:19:27 12 6-20 (mg/dL) Final Creatinine 06/15/2023 14:19:27 1.2 0.6-1.2 (mg/dL) Final Glomerular filtration rate/1.73 sq M.predicted [Volume Rate/Area] in Serum, Plasma or Blood by Creatinine-based formula (CKD-EPI) 06/15/2023 14:19:27 68 >=60 (mL/min) Final eGFR is calculated based on the CKD-EPI 2020 equation SODIUM 06/15/2023 14:19:27 138 135-146 (m mol/L) Final Potassium 06/15/2023 14:19:27 4.4 3.5-5.1 (m mol/L) Final Cl 06/15/2023 14:19:27 96 Below low normal 98- 107 (mmol/L) Final CO2 06/15/2023 14:19:27 31 22-32 (mmo l/L) Final Anion gap 06/15/2023 14:19:27 11 7-15 (mmol /L) Final Glucose 06/15/2023 14:19:27 99 70-120 (mg /dL) Final Albumin 06/15/2023 14:19:27 4.3 3.8-5.0 (g /dL) Final AST (Aspartate aminotransferase) 06/15/2023 14:19:27 29 10-50 (U/L) Fin al Alk Phos 06/15/2023 14:19:27 97 35-130 (U/ L) Final Bilirubin, Total 06/15/2023 14:19:27 1.0 <=1 .2 (mg/dL) Final Calcium 06/15/2023 14:19:27 10.2 8.4-10.2 ( mg/dL) Final Protein 06/15/2023 14:19:27 6.3 6.0-8.3 (g /dL) Final ALT (Alanine aminotransferase) 06/15/2023 14:19:27 27 10-50 (U/L) Raulito jerome Performing Location [facility] [place] [address] [facility] [address]
--- OUTSIDE RECORDS SUMMARY | 2023-06-16 01:41 | External Medical Summary | Summary of Care ---
Author Name Unknown Organization [facility] Address [address] [address] Phone [phone] Care Team Providers Care Vibrating Screed Operator Name Role Phone Rohan Mckenzie DO Primary Care Provider [phone] Reason for Visit * Reason Comments Pulmonary Function Test PFT with broncho dilator Encounter Details Date Type Department Care Team (Latest Contact Info) Description 06/02/2023 11:00 AM EST PulmDiagnostic Pulmonary Function Lab, [facility] [address] [place] [address] [place], [address] [facility] [place] [address] Dyspnea on exertion* Allergies No known active allergiesdocumented as of this encounter (statuses as of 06/02/2023) Medications Medication Sig Dispensed Refills Start Date End Date Status B Complex Vitamins (B COMPLEX 50) TABS Take by mouth daily . 0 Active vitamin c (ASCORBIC ACID) 500 MG Tablet Take 1 Tablet by mouth in the morning. 0 Active Misc. Devices MISC Custom molded extra depth shoes with accommodative inserts - Offloading of right 4th metatarsal head Dx: neuropathic ulceration right foot 1 Each 0 04/13/2019 Active nitroglycerin (NITROSTAT) 0.[address] 1 Tablet under the tongue every 5 minutes as needed. 0 Active Metoprolol Succinate ER 50 MG Oral Tablet Extended Release 24 Hour (toPROL XL) TAKE 1/2 TABLET BY MOUTH EVERY DAY 45 Tablet 3 10/01/2022 Active Econazole Nitrate 1 % External Cream (Spectazole)Indicat ions:History of tinea pedis,Onychomycosis Apply to feet (on nails and in between toes) 2x weekly as maintenance for tinea pedis 85 g 3 10/27/2022 Active Ezetimibe 10 MG Oral Tablet (Zetia)Indications: High triglycerides TAKE 1 TABLET BY MOUTH EVERY DAY IN THE MORNING 90 Tablet 3 01/13/2023 Active Aspirin Low Dose 81 MG Oral Tablet Delayed Release (aspirin enteric coated)Indications: High triglycerides TAKE 1 TABLET BY MOUTH EVERY DAY IN THE MORNING 90 Tablet 3 01/14/2023 Active Allopurinol 300 MG Oral Tablet (Zyloprim)Indicatio ns:Gouty arthropathy TAKE 1 TABLET BY MOUTH EVERY DAY 90 Tablet 1 03/23/2023 Active Simvastatin 40 MG Oral Tablet (Zocor)Indications: Dyslipidemia, goal LDL below 100 TAKE 1 TABLET BY MOUTH EVERY DAY 90 Tablet 1 04/07/2023 Active Losartan Potassium 100 MG Oral Tablet (Cozaar)Indications :Essential (primary) hypertension TAKE 1 TABLET BY MOUTH EVERY DAY 90 Tablet 3 04/15/2023 Active Albuterol Sulfate HFA 108 (90 Base) MCG/ACT Inhalation Aerosol Solution Inhale 2 Puffs by mouth every 6 hours as needed for Wheezing. 18 g 1 04/22/2023 Active predniSONE 20 MG Oral Tablet (Deltasone) 1 tab 3 times a day for 3 days, then 1 tab 2 times a day for 3 days, then 1 tab daily for 3 days 18 Tablet 0 05/17/2023 Active HYDROcodone Bit-Homatrop MBr 5-1.5 MG/5ML Oral Solution (Hycodan) Take 5 mL by mouth every 6 hours as needed for Cough. 120 mL 0 05/17/2023 Active Furosemide 20 MG Oral Tablet (Lasix) TAKE 1-2 TABS PER WEEK DIRECTED 60 Tablet 6 05/19/2023 Active Hospital, Clinic, or Other Facility Administered Medication Ordered Dose Route Frequency Start Date End Date Status Albuterol Sulfate (Proventil) (2.5 MG/3ML) 0.083% inhalation solution 2.5 mgIndications:Dyspnea on exertion 2.5 mg NEBULIZER ONCE PRN 05/06/2023 05/05/2024 Active documented as of this encounter (statuses as of 06/02/2023) Active Problems Problem Noted Date Diagnosed Date Aneurysm of aorta 05/17/2023 Old myocardial infarction 05/17/2023 Neuropathy 05/17/2023 Tinea pedis of both feet 11/18/2022 Infrarenal abdominal aortic aneurysm (AAA) witho ut rupture 11/18/2022 Carotid stenosis, non-symptomatic, bilateral 09/2022 PVD (peripheral vascular disease) 10/07/2022 Atherosclerosis of habematolel co ronary artery without angina pectoris 09/15/2022 Pulmonary fibrosis 08/07/2021 Lung nodule 05/30/2021 Overview: Repeat CT in 12/07 Abdominal aortic ectasia 02/19/2021 Overview: Recheck 03/10 Coronary artery disease of n ative artery of habematolel heart with stable angina pectoris 09/19/2020 Essential (primary) hypertension 09/19/2020 S/P angioplasty with stent 03/07/2020 Coronary artery disease invo lving coronary bypass graft of habematolel heart 03/07/2020 Chronic venous stasis dermatitis 02/09/2018 Cataract extraction status 06/12/2015 Dyslipidemia, goal LDL below 100 03/16/2011 Gouty arthropathy 05/02/2009 History of colonic polyps 03/28/2009 Overview: 01/06/13: normal mucosa, repeat 5 years 03/28/10: hyperplastic tissue, repeat 2 years 03/28/09: one adenoma, one hyperplastic, repeat one year 02/10/08: adenoma, repeat in 1 yr 08/12/07: 30 mm villous adenoma repeat 6 months No advance directive on file 09/10/2005 Overview: No, Advance Directive brochure given to patient. 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 documented as of this encounter (statuses as of 06/02/2023) Immunizations Name Administration Dates Next Due COVID-19 mRNA, LNP-s, No Pre serve, 2-Dose Series (8bit) 05/27/2021,10/10/2020,09/12/2020 Covid-19, Mrna, Lnp-s, Pf, B ivalent, 30 Mcg, IM, 12 yrs and above (8bit) 06/23/2022 Pneumococcal Conjugate Vacci ne, 20-valent ([id number]) 07/03/2022 Pneumococcal Polysaccharide PPV23 (Pneumovax) 06/17/2021,04/01/2006 SEASONAL INFLUENZA, PF, 6 M & Above, IM , (FLULAVAL or FLUZONE) 04/01/2020,04/10/2019,04/26/2018,04/21 Seasonal Influenza, Quadriva lent Hd (Fluzone Hd) 04/07/2023,04/08/2022,04/22/2021 Seasonal Influenza, Quadriva lent, No Preserve, IM 04/22/2016,05/20/2015 Seasonal Influenza, Split, I IV3, With Preserve, Inj 03/26/2014,04/08/2013,04/14/2011,04/30,06/12/2009,05/29/2008,05/05/2007 ,06/15/2006 TD, Preservative Free 05/27/2016 TDAP (age 10 and older)(Boostrix) 04/21/2017 TDAP (age 11 and older)(Adacel) 03/05/2006 Varicella Zoster Vaccine (Adult) 07/02/2016 Zoster Vaccine Recombinant (Shingrix) 08/17/2019 ,05/17/2019 documented as of this encounter Social History Tobacco Use Types Packs/Day Years Used Date Smoking Tobacco: Former Cigarettes 1 40 Q uit: 08/07/2015 Smokeless Tobacco: Never Alcohol Use Standard Drinks/Week Comments Yes 0 (1 standard drink = 0.6 oz pur e alcohol) 4-6 beer per day AUDIT-C Answer Date Recorded Frequency of Alcohol Consumption Not on file 12/13/2018 Average Number of Drinks 5 or 6 019 Frequency of Binge Drinking Not on file 11/17 PHQ-2 Answer Date Recorded PHQ-2 Score 0 02/10/2019 Sex and Gender Information Value Date Recorded Sex Assigned at Not on file Gender Identity Not on file Sexual Orientation Not on file Job Start Date Occupation Industry Not on file Not on file Not on file documented as of this encounter Last Filed Vital Signs Vital Sign Reading Time Taken Comments Blood Pressure - - Pulse - - Temperature 35.6 C (96.1 F) 06/02/2023 1 1:31 AM EST Respiratory Rate - - Oxygen Saturation - - Inhaled Oxygen Concentration - - Weight 110.9 kg (244 lb 7.8 oz) 023 11:31 AM EST Height 188.5 cm (6' 2.21") 06/02/2023 1 1:31 AM EST Body Mass Index 31.21 06/02/2023 11:31 AM EST documented in this encounter Functional Status Functional Status Response Date of Assess ment Are you deaf or do you have serious difficulty h earing? No 12/24/2022 Are you blind or do you have serious difficulty seeing, even when wearing glasses? No 12/24/2022 Do you have serious difficul ty walking or climbing stairs? (5 years old or older) No 12/24/2022 Do you have difficulty dress ing or bathing? (5 years old or older) No 12/24/2022 Because of a physical, menta l, or emotional condition, do you have difficulty doing errands alone such as visiting a doctor s office or shopping? (15 years old or older) No 12/25/19 23 Cognitive Status Response Date of Assessm ent Because of a physical, menta l, or emotional condition, do you have serious difficulty concentrating, remembering, or making decisions? (5 years old or older) No 12/24/2022 documented as of this encounter Nursing Notes * Bj Capellan RRT - 06/02/2023 11:33 AM EST Brandan Morgan was identified by name, Date of : (1955), and . Vitals were obtained for testing. Body mass index is 31.21 kg/m. Pt has a 1 ppd for 40 years smoking history and quit 7 years ago. 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 Spirometry, DLCO, RAW, and TGV performed. A slow volume nebulizer treatment of 0.5ml of albuterol in 3 ml of NSS was given. The proper method of use, as well asanticipated side effects, of this svn are discussed and demonstrated to the patient. Patient demonstrates adequate delivery. Administrations This Visit Albuterol Sulfate (Proventil) (2.5 MG/3ML) 0.083% inhalation solution 2.5 mg Admin Date 06/02/2023 Action Given Dose 2.5 mg Route Nebulizer Documented By Bj Capellan RRT documented in this encounter Plan of Treatment Upcoming Encounters Date Type Department Care Team (Late st Contact Info) Description 06/15/2023 1:30 PM EST Office Visit Cardiology, [facility] [address] [place] [address] Víctor Mcclain MD [address] [place] [address] 06/23/2023 10:20 AM EST Hospital Encounter [facility], Operating Room [facility] [address] [phone] Samuel Simon DO [address] [place] [address] 06/23/2023 10:20 AM EST - 06/23/2023 10:40 AM EST Surgery [facility], Operating Room [facility] [address] [place] [id number] Samuel Simon, [address] [place] [address] L-/S-SPINE PARAVERTEBRAL FACET INJ, 1 LEVEL 08/10/2023 1:00 PM EST Nurse Only Ancillary [facility] [address] [place] [address] Im, Nurse Annual Wellness [facility] [address] [place] [address] 09/21/2023 11:15 AM EST Hospital Encounter ENDO [facility], Endoscopy Room [facility] [address] [place] [phone] Naldo Lyon MD [address] [place] [address] 09/21/2023 11:15 AM EST - 09/21/2023 11:45 AM EST Surgery ENDO [facility], Endoscopy Room [facility] [address] [place] [phone] Naldo Lyon MD [address] [place] [address] COLONOSCOPY FLEXIBLE PROXIMAL DIAGNOSTIC 10/06/2023 1:00 PM EDT Office Visit Podiatry [facility] [address] [place] [address] Leonela Torre, DPM [address] [facility] [place] [address] 12/08/2023 10:00 AM EDT Office Visit Family Practice [facility] [address] [place] [address] Rohan Mckenzie, DO [address] [place] [address] 03/02/2024 1:00 PM EDT Office Visit Ophthalmology, [facility] [address] [place] [address] Abilio Hensley, DO [address] [place] [address] Scheduled Procedures Name Priority Associated Diagnoses Date/Ti me L-/S-SPINE PARAVERTEBRAL FACET INJ, 1 LEVEL Spondylosis of lumbar region without myelopathy or radiculopathy 06/23/2023 10:20 AM EST L-/S-SPINE PARAVERTEBRAL FACET INJ, 2 LEVELS Spondylosis of lumbar region without myelopathy or radiculopathy 06/23/2023 10:20 AM EST COLONOSCOPY FLEXIBLE PROXIMAL DIAGNOSTIC History of colon polyps 09/21/2023 11:15 AM EST Health Maintenance Due Date Last Done Comments Depression Screening 02/08/2020 02/07/2019 COLONOSCOPY-EVERY 5 YRS AGES 18-100 01/12/2023 01/12/2018, 01/12/2018, 01/17/2013, Additional history exists COVID-19 Vaccine ( season) 2023 06/23/2022, 05/27/2021, 10/10/2020, Additional history exists GFR 12/26/2023 12/25/2022, 0602/2023, 11/18/2022, Additional history exists Albumin/Creatinine Ratio 10/23/2025 10/23/2022 Diabetes Screening 12/25/2025 12/25/2022, 0 12/25/2022, 12/24/2022, Additional history exists DTaP,Tdap,and Td Vaccines (4 - Td or Tdap) 04/21/2027 04/21/2017, 05/27/2016, 03/05/2006 Zoster Vaccines Completed 08/17/2019, 04/20, 07/02/2016 Pneumococcal Vaccine: 65+ Years Completed 07/03/2022, 06/17/2021, 04/01/2006 Influenza Vaccine (FLU shot) Completed , 04/08/2022, 04/22/2021, Additional history exists GARDASIL-HPV IMMUNIZATION SERIES Aged Out No longer eligible based on patient's age to complete this topic Hepatitis B Aged Out No longer eligi ble based on patient's age to complete this topic MENINGOCOCCAL (MENACTRA/MENVEO) Aged Out No longer eligible based on patient's age to complete this topic documented as of this encounter Medical Devices Implanted Type [employer] Device Identifier Shelf Expiration Date Model / Serial / Lot Lens 17.5 Sn60wf - [id number] Implanted:Qty : 1 on 06/27/2014 by Rich Brooks MD at OR [facility] Right: Eye [employer] 03/18/2019 SN60WF.17 5 / [id number] / Lens 18.0 Sn60wf - [id number] - [id number] Implanted:Qty : 1 on 07/22/2022 by Abilio Hensley DO at OR [facility] Left: Eye MIRIAN : SURGICAL 11/16/2023 SN60WF.1 8 0 / [id number] / Patch Xenosure 0.8nec3it - [id number] Implanted:Qty : 1 on 12/24/2022 by Jean Garcia MD [place] [facility] Left: Femoral Artery [employer] [id number] 08/15/2028 E0.8P8 / [id number] / [id number] documented as of this encounter Visit Diagnoses Diagnosis Dyspnea on exertion- Primary Other dyspnea and respiratory abnormality Spondylosis of lumbar region without myelopathy or radiculopathy Lumbosacral spondylosis without myelopathy History of colon polyps Personal history of colonic polyps documented in this encounter Administered Medications Active Administered Medications - up to 3 most recent administrations Medication Order MAR Action Action Date Dose Rate Site Albuterol Sulfate (Proventil) (2.5 MG/3ML) 0.083% inhalation solution 2.5 mg 2.5 mg, Nebulizer, ONCE PRN Other, Testing, Starting on Nathaly 05/06/23 at 1229, Until Wed05/05/24 at 1228, For 365 days, Only one type of albuterol product should be administered (Nebulizer or Inhaler). Please select and document on the appropriate albuterol product order. Given 06/02/2023 11:16 AM EST 2.5 mg documented in this encounter Advance Directives Latest Code Status on File Code Status Date Activated Date Inactivated Comments Full Code 12/24/2022 10:48 AM 12/25/2022 3:42 PM This o rder reflects the patients wishes and were consensually agreed upon. Question Answer Comments Discussion of Advance Directives occurred with: Not Discussed due to patient's condition Code Status History Code Status Date Activated Date Inactivated Comments Full Code 07/22/2022 7:52 AM 07/22/2022 2:06 PM Question Answer Comments Discussion of Advance Directives occurred with: Not Discussed due to patient's condition Full Code 08/09/2015 4:33 PM 08/13/2015 2:44 PM This order reflects the patients wishes and were consensually agreed upon. Question Answer Comments Discussion of Advance Directives occurred with: Not Discussed Full Code 06/27/2014 8:16 AM 06/27/2014 4:20 PM Thi s order reflects the patients wishes and were consensually agreed upon. Care Teams Vibrating Screed Operator Relationship Specialty Start Date End Date Rohan Mckenzie DO [address] [place] [address] PCP - General Family Medicine 05/27/16 documented as of this encounter
--- OUTSIDE RECORDS SUMMARY | 2023-06-16 01:41 | External Medical Summary ---
Author Name Unknown Address Unknown Organization [facility] [address] [place] [address] Laboratory Report Ordering Provider Test Date Status LAMONTE BURNETT 06/15/2023 14:19:27 Final Observation Date Value Abnormality Reference (Units ) Status WBC, Total 06/15/2023 14:19:27 7.88 4.00-10.8 0 (K/uL) Final RBC 06/15/2023 14:19:27 4.53 4.50-5.25 (M/uL) Final Hemoglobin 06/15/2023 14:19:27 14.4 14.0-16.8 (g/dL) Final HCT 06/15/2023 14:19:27 43.1 40.0-48.4 (%) Final MCV 06/15/2023 14:19:27 95.1 82.0-99.5 (fL) Final MCH 06/15/2023 14:19:27 31.8 27.0-34.0 (pg) Final MCHC 06/15/2023 14:19:27 33.4 32.0-36.0 (g/dL) Final RDW 06/15/2023 14:19:27 14.8 11.5-15.5 (%) Final Platelets 06/15/2023 14:19:27 131 Below low normal 140 -400 (K/uL) Final MPV 06/15/2023 14:19:27 9.5 6.6-11.1 ( fL) Final Performing Location [facility] [address] [place] [address]
--- OUTSIDE RECORDS SUMMARY | 2023-06-16 01:41 | External Medical Summary ---
Author Name Unknown Address Unknown Organization [id number][facility] [address] [place] [address] Laboratory Report Ordering Provider Test Date Status LAMONTE BURNETT 06/15/2023 14:19:27 Final Observation Date Value Abnormality Reference (Units ) Status SYNC LEUKOCYTES IN BLOOD BY AUTOMATED COUNT 06/15/2023 14:19:27 7.88 4.00-10.80 (K/uL) Final Segs 06/15/2023 14:19:27 70.9 40.0-75.0 (%) Final Lymphs % 06/15/2023 14:19:27 15.6 Below low normal 18.0-42.0 (%) Final Monos 06/15/2023 14:19:27 12.2 Above high normal 1.0-11.0 (%) Final Eosinophils 06/15/2023 14:19:27 0.8 0.0-6.0 (%) Final Basos 06/15/2023 14:19:27 0.5 0.0-2.0 (%) Final Absolute Segs 06/15/2023 14:19:27 5.59 1.80-7.70 (K/uL) Final Lymphs, absolute 06/15/2023 14:19:27 1.23 1.00-4.80 (K/ul) Final Monos, Abs 06/15/2023 14:19:27 0.96 0.00-1.10 (K/uL) Final Eos, Abs 06/15/2023 14:19:27 0.06 0.00-0.70 (K/uL) Final Basos, Abs 06/15/2023 14:19:27 0.04 0.00-0.20 (K/uL) Final [facility] Location [facility] [place] [address]
--- OUTSIDE RECORDS SUMMARY | 2023-06-16 01:42 | External Medical Summary | Summary of Care ---
Author Name Unknown Organization [facility] Address [address] [place] [address] Phone [phone] Care Team Providers Care Aircraft Fueler Name Role Phone Rohan Mckenzie DO Primary Care Provider [phone] Reason for Visit * Reason Onset Date Comments Test Results 05/18/2023 XR CHEST 2 VIEWS Encounter Details Date Type Department Care Team (Late st Contact Info) Description 05/18/2023 Telephone Family Practice [facility] [place] [address] [facility] [place] [address] Rohan Mckenzie DO [address] [facility] [place] [address] Test Results ( XR CHEST 2 VIEWS) Allergies No known active allergiesdocumented as of this encounter (statuses as of 05/27/2023) Medications Medication Sig Dispensed Refills Start Date [...] Active Econazole Nitrate 1 % External Cream (Spectazole)Indica tions:History of tinea pedis,Onychomycosi s Apply to feet (on nails and in between toes) 2x weekly as maintenance for tinea pedis 85 g 3 10/27/2022 Active Ezetimibe 10 MG Oral Tablet (Zetia)Indications :High triglycerides TAKE 1 TABLET BY MOUTH EVERY DAY IN THE MORNING 90 Tablet 3 01/13/2023 Active Aspirin Low Dose 81 MG Oral Tablet Delayed Release (aspirin enteric coated)Indications :High triglycerides TAKE 1 TABLET BY MOUTH EVERY DAY IN THE MORNING 90 Tablet 3 01/14/2023 Active Allopurinol 300 MG Oral Tablet (Zyloprim)Indicati ons:Gouty arthropathy TAKE 1 TABLET BY MOUTH EVERY DAY 90 Tablet 1 03/23/2023 Active Simvastatin 40 MG Oral Tablet (Zocor)Indications :Dyslipidemia, goal LDL below 100 TAKE 1 TABLET BY MOUTH EVERY DAY 90 Tablet 1 04/07/2023 Active Losartan Potassium 100 MG Oral Tablet (Cozaar)Indication s:Essential (primary) hypertension TAKE 1 TABLET BY MOUTH [...] 3 days 18 Tablet 0 05/17/2023 Active Doxycycline Hyclate 100 MG Oral Capsule Take 1 Capsule by mouth in the morning and 1 Capsule before bedtime. Do all this for 10 days. Until gone.. 20 Capsule 0 05/17/2023 05/27/20 23 Active HYDROcodone Bit-Homatrop MBr 5-1.5 MG/5ML Oral Solution (Hycodan) Take 5 mL by mouth every 6 hours as needed for Cough. 120 mL 0 05/17/2023 Active Furosemide 20 MG Oral Tablet (Lasix) TAKE 1-2 TABS PER WEEK DIRECTED 60 Tablet 6 05/19/2023 Active Furosemide 20 MG Oral Tablet (Lasix) TAKE 1-2 TABS PER WEEK DIRECTED 24 Tablet 6 03/18/2022 05/19/20 23 Discontinu ed(Refill) Hospital, Clinic, or Other Facility Administered Medication Ordered Dose Route Frequency Start Date End Date Status Albuterol Sulfate (Proventil) (2.5 MG/3ML) 0.083% inhalation solution 2.5 mgIndications:Dyspnea on exertion 2.5 mg NEBULIZER ONCE PRN 05/06/2023 05/05/2024 Active documented as of this encounter (statuses as of 05/27/2023) Active Problems Problem Noted Date Diagnosed Date Aneurysm of aorta 05/17/2023 Old myocardial infarction 05/17/2023 Neuropathy 05/17/2023 Tinea pedis of both feet 11/18/2022 Infrarenal abdominal aortic aneurysm (AAA) witho ut rupture 11/18/2022 Carotid stenosis, non-symptomatic, bilateral 09/2022 PVD (peripheral vascular disease) 10/07/2022 Atherosclerosis of [place] co ronary artery without angina pectoris 09/15/2022 Pulmonary fibrosis 08/07/2021 Lung nodule 05/30/2021 Overview: Repeat CT in 12/07 Abdominal aortic ectasia 02/19/2021 Overview: Recheck 03/10 Coronary artery disease of n ative artery of [place] heart with stable angina pectoris 09/19/2020 Essential (primary) hypertension 09/19/2020 S/P angioplasty with stent 03/07/2020 Coronary artery disease invo lving coronary bypass graft of [place] heart 03/07/2020 Chronic venous stasis dermatitis 02/09/2018 [...] as of this encounter (statuses as of 05/27/2023) Resolved Problems Problem Noted Date Diagnosed Date [...] Update ICD-10 update of inactive term 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 documented as of this encounter (statuses as of 05/27/2023) Immunizations Name Administration Dates Next Due COVID-19 mRNA, LNP-s, No Pre serve, 2-Dose Series ([employer]) 05/27/2021,10/10/2020,09/12/2020 Covid-19, Mrna, Lnp-s, Pf, B ivalent, 30 Mcg, IM, 12 yrs and above ([employer]) 06/23/2022 Pneumococcal Conjugate Vacci ne, 20-valent ([id number]) 07/03/2022 Pneumococcal Polysaccharide PPV23 (Pneumovax) 06/17/2021,04/01/2006 SEASONAL [...] Years Used Date Smoking Tobacco: Former Cigarettes 0 20 Q uit: 08/07/2015 Smokeless Tobacco: Never Alcohol [...] on file documented as of this encounter Functional Status Functional Status Response [...] or making decisions? (5 years old or older No 12/24/2022 documented as of this encounter Miscellaneous Notes * Telephone Encounter - Rupa Robles LPN - 05/27/2023 12:05 PM EST See myg. * Telephone Encounter - Rohan Mckenzie DO - 05/19/2023 7:59 AM EDT Yuly - could you reach out to Brandan this afternoon just to make sure he got the instructions fromthe MyG I sent him? Could you also call Wednesday to check on him? If you aren't in then we could set it up as a nurse call instead. * Telephone Encounter - Lola Zuñiga TECH - 05/18/2023 10:06 PM EDT Hello- The radiologist discovered an unexpected or indeterminate finding on Brandan Morgan ([id number]) and asks that you review the following report. Study Type: XR CHEST 2 VIEWS Date of Study: 05/18/2023 IMPRESSION 1. New cardiomegaly, suspicious for pericardial effusion. 2. New small to moderate right pleural effusion. Please respond to this encounter to acknowledge receipt of this message and take responsibility to ensure this report is reviewed. Thank you, CHE Ch Client Service [facility] Diagnostic Medicine [place] documented in this encounter Plan of Treatment Upcoming Encounters Date Type Department Care Team (Latest Contact Info) Description 06/02/2023 11:00 AM EST PulmDiagnostic Pulmonary Function Lab, [facility] [address] [place] [address] [address], [address] [place] [address] 06/18/2023 10:30 AM EST Office Visit Cardiology, [facility] [address] [place] [address] Víctro Mcclain MD [address] [place] [address] 06/23/2023 10:20 AM EST Hospital Encounter OR [facility], Operating Room [facility] [address] [place] [phone] Samuel Simon, DO [address] [place] [address] 06/23/2023 10:20 AM EST - 06/23/2023 10:40 AM EST Surgery OR [facility], Operating Room [facility] [address] [place] [phone] Samuel Simon, DO [address] [place], [place] [address] L-/S-SPINE PARAVERTEBRAL FACET INJ, 1 LEVEL 08/10/2023 1:00 PM EST Nurse Only Ancillary [facility] [address] [place] [address] Im, Nurse Annual Wellness [facility] [address] [place] [address] 09/21/2023 11:15 AM EST Hospital Encounter ENDO [facility], Endoscopy Room [facility] [address] [place] [phone] Naldo Lyon MD [address] [place] [address] 09/21/2023 11:15 AM EST - 09/21/2023 11:45 AM EST Surgery ENDO [facility], Endoscopy Room [facility] [address] [place] [phone] Naldo Lyon MD [address] [place] [address] COLONOSCOPY FLEXIBLE PROXIMAL DIAGNOSTIC 10/06/2023 1:00 PM EDT Office Visit Podiatry [facility] [address] [facility] [address] Leonela Torre, DPHilario [address] [facility] [place] [address] 12/08/2023 10:00 AM EDT Office Visit Family Practice [facility] [address] [facility] [place] [address] Rohan Mckenzie, DO [address] [facility] [place] [address] 03/02/2024 1:00 PM EDT Office Visit Ophthalmology, [facility] 132 [facility] [place] [address] Abilio Hensley, DO [address] [facility] [place] [address] Scheduled Procedures Name Priority Associated Diagnoses Date/Ti [...] 01/12/2018, 01/17/2013, Additional history exists COVID-19 Vaccine (2022- season) 2023 06/23/2022, 05/27/2021, 10/10/2020, Additional history [...] this encounter Medical Devices Implanted Type Area Information Clerk Cashier Device Identifier Shelf Expiration Date Model / Serial / Lot Lens 17.5 Sn60wf - [id number] Implanted:Qty : 1 on 06/27/2014 by Rich Brooks MD at OR [facility] Right: Eye [employer] 03/18/2019 SN60WF.17 5 / [id number] / Lens 18.0 Sn60wf - [id number] - [id number] Implanted:Qty : 1 on 07/22/2022 by Abilio Hensley DO at OR [facility] Left: Eye MIRIAN : SURGICAL 11/16/2023 SN60WF.1 8 0 / [id number] / Patch Xenosure [id number] - [id number] Implanted:Qty : 1 on 12/24/2022 by Jean Garcia MD at OR [facility] Left: Femoral Artery [employer] [id number] 08/15/2028 E0.8P8 / [id number] / [id number] documented as of this encounter Advance Directives Latest Code Status [...] and were consensually agreed upon. Care Teams Aircraft Fueler Relationship Specialty Start Date End Date Rohan Mckenzie DO [address] [place] [address] PCP - General Family Medicine 05/27/16 documented as of this encounter
--- OUTSIDE RECORDS SUMMARY | 2023-06-16 01:42 | External Medical Summary | Summary of Care ---
Author Name Unknown Organization [facility] Address [address] [facility] [place] [address] Phone [phone] Care Team Providers Care Ladle Handler Name Role Phone Jonah Rohan Brittney CESPEDES Primary Care Provider [phone] Reason for Visit * Reason Comments Follow Up 8-10 month Dilation with OCT. Pt states "My eyes have been really dry been putting drops in, in the afternoon. Other then dryness no issues" Encounter Details Date Type Department Care Team (Late st Contact Info) Description 05/20/2023 11:15 AM EDT Office Visit Ophthalmology, [facility] 132 [facility] [place] [address] Abilio Hensley, DO [facility] [place] [address] Early dry stage nonexudative age-related macular degeneration of both eyes*; Pseudophakia; Dry eyes, bilateral Allergies No known active allergiesdocumented as of this encounter (statuses as of 05/20/2023) Medications Medication Sig Dispensed Refills Start Date [...] days. Until gone.. 20 Capsule 0 05/17/2023 Active HYDROcodone Bit-Homatrop MBr 5-1.5 [...] as of this encounter (statuses as of 05/20/2023) Active Problems Problem Noted Date Diagnosed Date Aneurysm of aorta 05/17/2023 Old myocardial infarction 05/17/2023 Neuropathy 05/17/2023 Tinea pedis of both feet 11/18/2022 Infrarenal abdominal aortic aneurysm (AAA) witho ut rupture 11/18/2022 Carotid stenosis, non-symptomatic, bilateral 09/2022 PVD (peripheral vascular disease) 10/07/2022 Atherosclerosis of [place] co ronary artery without angina pectoris 09/15/2022 Pulmonary fibrosis 08/07/2021 Lung nodule 05/30/2021 Overview: Repeat CT in 12/07 Abdominal aortic ectasia 02/19/2021 Overview: Recheck 03/10 Coronary artery disease of n ative artery of [place] heart with stable angina pectoris 09/19/2020 Essential (primary) hypertension 09/19/2020 S/P angioplasty with stent 03/07/2020 Coronary artery disease invo lving coronary bypass graft of [place] heart 03/07/2020 Chronic venous stasis dermatitis 02/09/2018 [...] as of this encounter (statuses as of 05/20/2023) Resolved Problems Problem Noted Date Diagnosed Date [...] Update ICD-10 update of inactive term 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 documented as of this encounter (statuses as of 05/20/2023) Immunizations Name Administration Dates Next Due COVID-19 mRNA, LNP-s, No Pre serve, 2-Dose Series ([employer]) 05/27/2021,10/10/2020,09/12/2020 Covid-19, Mrna, Lnp-s, Pf, B ivalent, 30 Mcg, IM, 12 yrs and above ([employer]) 06/23/2022 Pneumococcal Conjugate Vacci ne, 20-valent ([id number]) 07/03/2022 Pneumococcal Polysaccharide PPV23 (Pneumovax) 06/17/2021,04/01/2006 SEASONAL [...] No 12/24/2022 documented as of this encounter Progress Notes * Abilio Hensley, DO - 05/20/2023 11:15 AM EDT 05/20/23 [facility] Ophthalmology Clinic Note HPI: Brandan Morgan is a 67 year old pt who presents to the eye clinic today for return. Location: [facility] Severity: Mild Quality: No current complaints. Does note dryness. Exacerbating/Remitting Factors: Denies Associated Sx: Denies Past Ocular History: Pseudophakia OD (Todd, SN60WF 17.50), mild PCO OS (Shellie TCC SN60WF 18.0 07/22/2022) PVD OU Macular degeneration, non-exudative OU Eye Medications:Denies Family Ocular History: Denies ROS: Pt denies acute vision changes Pt denies new onset double vision Pt denies new GORDON Pt denies new issues surrounding eyes Pt admits to above Please see below for full exam details. Base Eye Exam Visual Acuity (Snellen - Linear) Right Left Dist sc 20/25 20/20 -1 Correction: Glasses Tonometry (Tonopen, 11:22 AM) Right Left Pressure 11 12 Pupils Light Shape React APD Right 4 Round Brisk None Left 4 Round Brisk None Visual Rodriguez (Counting fingers) Right Left Full Full Extraocular Movement Right Left Full Full Neuro/Psych Oriented x3: Yes Mood/Affect: Normal Dilation Both eyes: 0.5% Proparacaine, 2.5% Phenylephrine, 1.0% Mydriacyl @ 11:22 AM Slit Lamp and Fundus Exam External Exam Right Left External Normal Normal Slit Lamp Exam Right Left Lids/Lashes Dermatochalasis - upper lid Dermatochalasis - upper lid Conjunctiva/Sclera White and quiet White and quiet Cornea Clear Clear Anterior Chamber Deep and quiet Deep and quiet Iris Round and reactive Round and reactive Lens PCIOL, trace PCO inferior creeping central PCIOL, trace PCO Fundus Exam Right Left Vitreous PVD PVD Disc Normal Normal C/D Ratio 0.3 0.3 Macula small/medium soft drusen small/medium soft drusen Vessels Normal Normal Periphery Normal Normal Date: 05/20/23 OCT Macula: OD - Normal fovea, drusen OS - Normal fovea, drusen A/P: NE ARMD OU -Remains stable clinically with good vision -OCT w/o IRF/SRF Dry Eyes, OU -Recommend artificial tears up to 4 times daily -Brand names given - Refresh or Systane Pseudophakia OU -Stable RTC 8-10 months, dilate, OCT macula OU or sooner prn. Abilio Hensley DO 05/20/23 I spent a total of 20-29 minutes (exact time 20 mins) on the date of service in preparation, delivery, and documentation of the care provided to Brandan Morgan excluding any time spent in the performance of separately billed services. documented in this encounter Nursing Notes * Lucretia Lima COA - 05/20/2023 11:17 AM EDT 8-10 month Dilation with OCT. Pt states "My eyes have been really dry been putting drops in, in theafternoon. Other then dryness no issues" documented in this encounter Plan of Treatment Upcoming Encounters Date Type Department Care Team (Latest Contact Info) Description 06/02/2023 11:00 AM EST PulmDiagnostic Pulmonary Function Lab, [facility] [address] [place] [address] [address], [address] [place] [address] 06/18/2023 10:30 AM EST Office Visit Cardiology, [facility] [address] [place] [address] Víctor Mcclain MD [address] [place] [address] 06/23/2023 10:20 AM EST Hospital Encounter OR [facility], Operating Room [facility] [address] [place] [phone] Samuel Simon, DO [address] [place] [address] 06/23/2023 10:20 AM EST - 06/23/2023 10:40 AM EST Surgery OR [facility], Operating Room [facility] [address] [place] [phone] Samuel Simon, DO [address] [place] [address] L-/S-SPINE PARAVERTEBRAL FACET INJ, 1 LEVEL 08/10/2023 1:00 PM EST Nurse Only Ancillary [facility] [address] [facility] [place] [address] Im, Nurse Annual Wellness [facility] 200 [facility] [place] [address] 09/21/2023 11:15 AM EST Hospital Encounter ENDO [facility], Endoscopy Room [facility] [address] [place] [phone] Naldo Lyon MD [address] [place] [address] 09/21/2023 11:15 AM EST - 09/21/2023 11:45 AM EST Surgery ENDO [facility], Endoscopy Room [facility] [address] [place] [phone] Naldo Lyon MD [address] [place] [address] COLONOSCOPY FLEXIBLE PROXIMAL DIAGNOSTIC 10/06/2023 1:00 PM EDT Office Visit Podiatry [facility] [address] [place] [address] Leonela Torre DPHilario 400 [facility] [place] [address] 12/08/2023 10:00 AM EDT Office Visit Family Practice [facility] [address] [place], [place] [address] Rohan Mckenzie, DO [address] [place], [place] [address] 03/02/2024 1:00 PM EDT Office Visit Ophthalmology, [facility] 132 [facility] [place] [address] Abilio Hensley, DO [address] [place] [address] Scheduled Orders Name Type Priority Associated Diagnoses Orde r Schedule RETINA SCAN DIAGNOSTIC IMAGE, POSTERIOR Procedures Routine Early dry stage nonexudative age-related macular degeneration of both eyes Ordered: 05/20/2023 Scheduled Procedures Name Priority Associated Diagnoses Date/Ti [...] 10/10/2020, Additional history exists GFR 12/26/2023 12/25/2022, 06/02/2023, 11/18/2022, Additional history exists Albumin/Creatinine Ratio 10/23/2025 [...] this encounter Medical Devices Implanted Type Area Sliver Lap Tender Device Identifier Shelf Expiration Date Model / Serial / Lot Lens 17.5 Sn60wf - [id number] Implanted:Qty : 1 on 06/27/2014 by Rich Brooks MD at OR [facility] Right: Eye [employer] 03/18/2019 SN60WF.17 5 / [id number] / Lens 18.0 Sn60wf - [id number] - [id number] Implanted:Qty : 1 on 07/22/2022 by Abilio Hensley DO at OR [facility] Left: Eye MIRIAN : SURGICAL 11/16/2023 SN60WF.1 8 0 / [id number] / Patch Xenosure [id number] - [id number] Implanted:Qty : 1 on 12/24/2022 by Jean Garcia MD at OR [facility] Left: Femoral Artery [employer] [id number] 08/15/2028 E0.8P8 / [id number] / [id number] documented as of this encounter Visit Diagnoses Diagnosis Early dry stage nonexudative age-related macular degeneration of both eyes- Primary Pseudophakia Lens replaced by other means Dry eyes, bilateral Tear film insufficiency, unspecified Spondylosis of lumbar region without myelopathy or radiculopathy Lumbosacral spondylosis without myelopathy History of colon polyps Personal history of colonic polyps documented in this encounter Advance Directives Latest [...] and were consensually agreed upon. Care Teams Ladle Handler Relationship Specialty Start Date End Date Rohan Mckenzie DO [address] [place] [address] PCP - General Family Medicine 05/27/16 documented as of this encounter
--- OUTSIDE RECORDS SUMMARY | 2023-06-16 01:42 | External Medical Summary | Summary of Care ---
Author Name Unknown Organization [facility] Address [address] [place] [address] Phone [phone] Care Team Providers Care Bone Char Kiln Operator Name Role Phone Rohan Mckenzie DO Primary Care Provider [phone] Reason for Visit * Reason Comments Physical-Exam Encounter Details Date Type Department Care Team (Late st Contact Info) Description 05/17/2023 12:40 PM EDT Office Visit Family Practice [facility] [place] [address] [facility] [place] [address] Rohan Mckenzie DO [address] [facility] [place] [address] Coronary artery disease of [place] artery of [place] heart with stable angina pectoris (HCC)*; Pulmonary fibrosis (HCC); Old myocardial infarction; Neuropathy; Dyslipidemia, goal LDL below 100; Acute cough; BPH with obstruction/lower urinary tract symptoms Allergies No known active allergiesdocumented as of this encounter (statuses as of 05/25/2023) Medications Medication Sig Dispensed Refills Start Date [...] neuropathic ulceration right foot 1 Each 0 04/13/20 19 Active nitroglycerin (NITROSTAT) 0.[address] 1 Tablet under the tongue every 5 minutes as needed. 0 Active Metoprolol Succinate ER 50 MG Oral Tablet Extended Release 24 Hour (toPROL XL) TAKE 1/2 TABLET BY MOUTH EVERY DAY 45 Tablet 3 10/02/19 23 Active Econazole Nitrate 1 % External Cream (Spectazole)Indic ations:History of tinea pedis,Onychomycos is Apply to feet (on nails and in between toes) 2x weekly as maintenance for tinea pedis 85 g 3 10/28/19 23 Active Ezetimibe 10 MG Oral Tablet (Zetia)Indication s:High triglycerides TAKE 1 TABLET BY MOUTH EVERY DAY IN THE MORNING 90 Tablet 3 01/14/20 23 Active Aspirin Low Dose 81 MG Oral Tablet Delayed Release (aspirin enteric coated)Indication s:High triglycerides TAKE 1 TABLET BY MOUTH EVERY DAY IN THE MORNING 90 Tablet 3 01/15/20 23 Active Allopurinol 300 MG Oral Tablet (Zyloprim)Indicat ions:Gouty arthropathy TAKE 1 TABLET BY MOUTH EVERY DAY 90 Tablet 1 03/23/20 23 Active Simvastatin 40 MG Oral Tablet (Zocor)Indication s:Dyslipidemia, goal LDL below 100 TAKE 1 TABLET BY MOUTH EVERY DAY 90 Tablet 1 04/07/20 23 Active Losartan Potassium 100 MG Oral Tablet (Cozaar)Indicatio ns:Essential (primary) hypertension TAKE 1 TABLET BY MOUTH EVERY DAY 90 Tablet 3 04/15/20 23 Active Albuterol Sulfate HFA 108 (90 Base) MCG/ACT Inhalation Aerosol Solution Inhale 2 Puffs by mouth every 6 hours as needed for Wheezing. 18 g 1 04/22/20 23 Active predniSONE 20 MG Oral Tablet (Deltasone) 1 tab 3 times a day for 3 days, then 1 tab 2 times a day for 3 days, then 1 tab daily for 3 days 18 Tablet 0 05/17/20 23 Active Doxycycline Hyclate 100 MG Oral Capsule Take 1 Capsule by mouth in the morning and 1 Capsule before bedtime. Do all this for 10 days. Until gone.. 20 Capsule 0 05/17/20 23 023 Active HYDROcodone Bit-Homatrop MBr 5-1.5 MG/5ML Oral Solution (Hycodan) Take 5 mL by mouth every 6 hours as needed for Cough. 120 mL 0 05/17/20 23 Active Furosemide 20 MG Oral Tablet (Lasix) TAKE 1-2 TABS PER WEEK DIRECTED 24 Tablet 6 03/18/20 22 023 Discontinued(Re fill) predniSONE 10 MG Oral Tablet (Deltasone)Indica tions:Bronchitis, complicated Take 5 tabs for 2 days, 4 tabs for 2 days, 3 tabs for 2 days, 2 tabs for 2 days 1 tab for 2 days 30 Tablet 0 05/06/20 23 023 Discontinued Hospital, Clinic, or Other Facility Administered Medication Ordered Dose Route Frequency Start Date End Date Status Albuterol Sulfate (Proventil) (2.5 MG/3ML) 0.083% inhalation solution 2.5 mgIndications:Dyspnea on exertion 2.5 mg NEBULIZER ONCE PRN 05/06/2023 05/05/2024 Active documented as of this encounter (statuses as of 05/25/2023) Active Problems Problem Noted Date Diagnosed Date Aneurysm of aorta 05/17/2023 Old myocardial infarction 05/17/2023 Neuropathy 05/17/2023 Tinea pedis of both feet 11/18/2022 Infrarenal abdominal aortic aneurysm (AAA) witho ut rupture 11/18/2022 Carotid stenosis, non-symptomatic, bilateral 09/2022 PVD (peripheral vascular disease) 10/07/2022 Atherosclerosis of [place] co ronary artery without angina pectoris 09/15/2022 Pulmonary fibrosis 08/07/2021 Lung nodule 05/30/2021 Overview: Repeat CT in 12/07 Abdominal aortic ectasia 02/19/2021 Overview: Recheck 03/10 Coronary artery disease of n ative artery of [place] heart with stable angina pectoris 09/19/2020 Essential (primary) hypertension 09/19/2020 S/P angioplasty with stent 03/07/2020 Coronary artery disease invo lving coronary bypass graft of [place] heart 03/07/2020 Chronic venous stasis dermatitis 02/09/2018 [...] as of this encounter (statuses as of 05/25/2023) Resolved Problems Problem Noted Date Diagnosed Date [...] Update ICD-10 update of inactive term 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 documented as of this encounter (statuses as of 05/25/2023) Immunizations Name Administration Dates Next Due COVID-19 mRNA, LNP-s, No Pre serve, 2-Dose Series ([employer]) 05/27/2021,10/10/2020,09/12/2020 Covid-19, Mrna, Lnp-s, Pf, B ivalent, 30 Mcg, IM, 12 yrs and above ([employer]) 06/23/2022 Pneumococcal Conjugate Vacci ne, 20-valent ([id number]) 07/03/2022 Pneumococcal Polysaccharide PPV23 (Pneumovax) 06/17/2021,04/01/2006 SEASONAL [...] Sign Reading Time Taken Comments Blood Pressure 140/72 05/17/2023 12:44 PM EDT Pulse 68 05/17/2023 12:44 PM EDT Temperature 36.6 C (97.8 F) 05/17/2023 1 2:44 PM EDT Respiratory Rate 18 05/17/2023 12:4 4 PM EDT Oxygen Saturation 94% 05/17/2023 12: 44 PM EDT Inhaled Oxygen Concentration - - Weight 117.7 kg (259 lb 6.4 oz) 023 12:44 PM EDT Height 188 cm (6' 2") 05/17/2023 12:44 PM EDT Body Mass Index 33.3 05/17/2023 12:44 PM EDT documented in this encounter Functional Status Functional [...] (15 years old or older) No 12/25/19 Cognitive Status Response Date of Assessm ent Because of a physical, menta l, or emotional condition, do you have serious difficulty concentrating, remembering, or making decisions? (5 years old or older No 12/24/2022 documented as of this encounter Progress Notes * Rohan Mckenzie, - 05/17/2023 12:56 PM EDT Subjective: Brandan Morgan is a 67 year old male. Chief Complaint Patient presents with Physical-Exam HPI: Pt here for a physical. Given an antibitiotic and prednisone. Still coughing and still sOB but not as bad. Using inhaler every 6 hours. Worse in the morning. Cough is loosening up maybe. Off and on. White mucous coming up. Mucous coming up in chunks. PMHx, PSHx, SHx, FHx, Medications, and Allergies fully reviewed PMHx, PSHx, SHx, FHx, Medications, and Allergies fully reviewed Colonoscopy scheduled next Wednesday. Noswelling in his legs. He had a procedure for his leg that they opened up with artery. Taking lasix the last 3 days. Not sure if it is helping. Will check Pro-BNP. Patient Active Problem List Diagnosis Code CHR ISCHEMIC HRT DIS NOS I25.9 hypercholesterol E78.1 No advance directive on file Z78.9 History of colonic polyps Z86.010 Gouty arthropathy M10.9 Dyslipidemia, goal LDL below 100 E78.5 Cataract extraction status Z98.49 Chronic venous stasis dermatitis I87.2 S/P angioplasty with stent Z95.820 Coronary artery disease involving coronary bypass graft of [place] heart I25.810 Coronary artery disease of [place] artery of [place] heart with stable angina pectoris ([facility]) I25.118 Essential (primary) hypertension I10 Abdominal aortic ectasia ([facility]) I77.811 Lung nodule R91.1 Pulmonary fibrosis ([facility]) J84.10 Atherosclerosis of [place] coronary artery without angina pectoris I25.10 PVD (peripheral vascular disease) ([facility]) I73.9 Tinea pedis of both feet B35.3 Infrarenal abdominal aortic aneurysm (AAA) without rupture ([facility]) I71.43 Carotid stenosis, non-symptomatic, bilateral I65.23 Aneurysm of aorta ([facility]) I71.9 Old myocardial infarction I25.2 Neuropathy G62.9 Current Outpatient Medications Medication Sig Dispense Refill B Complex Vitamins (B COMPLEX 50) TABS Take by mouth daily . vitamin c (ASCORBIC ACID) 500 MG Tablet Take 1 Tablet by mouth in the morning. Furosemide 20 MG Oral Tablet (Lasix) TAKE 1-2 TABS PER WEEK DIRECTED 24 Tablet 6 Metoprolol Succinate ER 50 MG Oral Tablet Extended Release 24 Hour (toPROL XL) TAKE 1/2 TABLET BY MOUTH EVERY DAY 45 Tablet 3 Econazole Nitrate 1 % External Cream (Spectazole) Apply to feet (on nails and in between toes) 2x weekly as maintenance for tinea pedis 85 g 3 Ezetimibe 10 MG Oral Tablet (Zetia) TAKE 1 TABLET BY MOUTH EVERY DAY IN THE MORNING 90 Tablet 3 Aspirin Low Dose 81 MG Oral Tablet Delayed Release (aspirin enteric coated) TAKE 1 TABLET BY MOUTH EVERY DAY IN THE MORNING 90 Tablet 3 Allopurinol 300 MG Oral Tablet (Zyloprim) TAKE 1 TABLET BY MOUTH EVERY DAY 90 Tablet 1 Simvastatin 40 MG Oral Tablet (Zocor) TAKE 1 TABLET BY MOUTH EVERY DAY 90 Tablet 1 Losartan Potassium 100 MG Oral Tablet (Cozaar) TAKE 1 TABLET BY MOUTH EVERY DAY 90 Tablet 3 Albuterol Sulfate HFA 108 (90 Base) MCG/ACT Inhalation Aerosol Solution Inhale 2 Puffs by mouth every 6 hours as needed for Wheezing. 18 g 1 Misc. Devices MISC Custom molded extra depth shoes with accommodative inserts - Offloading of [id number] metatarsal head Dx: neuropathic ulceration right foot 1 Each 0 nitroglycerin (NITROSTAT) 0.[address] 1 Tablet under the tongue every 5 minutes as needed. predniSONE 10 MG Oral Tablet (Deltasone) Take 5 tabs for 2 days, 4 tabs for 2 days, 3 tabs for 2 days, 2 tabs for 2 days 1 tab for 2 days (Patient not taking: Reported on 05/17/2023) 30 Tablet 0 Current Facility-Administered Medications Medication Dose Route Frequency Provider Last Rate Last Admin Albuterol Sulfate (Proventil) (2.5 MG/3ML) 0.083% inhalation solution 2.5 mg 2.5 mg Nebulizer Once PRN Verna Sprague MD Review of patient's allergies indicates: No Known Allergies OBJECTIVE: BP 140/72 | Pulse 68 | Temp 36.6 C (97.8 F) (Tympanic) | Resp 18 | Ht 1.88 m (6' 2") | Wt 117.7kg (259 lb 6.4 oz) | SpO2 94% | BMI 33.30 kg/m | BSA 2.48 m Estimated body mass index is 33.3 kg/m as calculated from the following: Height as of this encounter: 1.88 m (6' 2"). Weight as of this encounter: 117.7 kg (259 lb 6.4 oz). BP Readings from Last 3 Encounters: 05/17/23 140/72 05/06/23 130/62 01/20/23 140/68 Wt Readings from Last 3 Encounters: 05/17/23 117.7 kg (259 lb 6.4 oz) 05/06/23 117.8 kg (259 lb 12.8 oz) 01/20/23 116 kg (255 lb 11.2 oz) ROS: General: No change in weight, No weakness, No fatigue and No fevers, sweats, or chills Head: No significant headache and No recent significant head injury Eyes: No recent significant change in vision, No eye pain, redness, discharge, or excessive tearing, No diplopia and No h/o cataracts or glaucoma Ears: No recent change in hearing, No tinnitus or vertigo, No ear pain and No ear discharge Nose: No h/o frequent colds or sinusitis, No nasal stuffiness, No h/o hay fever and No significant epistaxis Throat/Oropharynx: No teeth or gum problems, No bleeding gums, No tongue complaints, No sore throatand No recent change in voice or hoarseness Neck: No complaint of lumps in neck, No swollen glands, No recent swelling in thyroid area and No significant pain in neck Respiratory: As above Cardiac: as above Gastrointestinal: No dysphagia, No significant heartburn, No significant change in appetite, No nausea, vomiting, diarrhea, or constipation, No hematemesis, No blood in stools or black tarry stools, No abdominal bloating or early satiety and No abdominal pain Urinary: No urinary frequency, No dysuria, No hematuria, No urinary urgency, No polyuria, No nocturia, No incontinence, No hesitancy and No sensation of incomplete voiding Musculoskeletal: No joint pain or stiffness, No arthritis, No backache, No muscle pains or cramps and No joint swelling Hematologic: No anemia, No easy bruising or abnormal bleeding and No history of transfusion Neurologic: No fainting or blackouts, No seizures, No paralysis or focal weakness, No numbness or tingling, No tremors and No significant problems with memory PHYSICAL EXAM: General: alert, healthy and no distress Head: Normocephalic, No masses, lesions, tenderness or abnormalities Ears: External ears normal, Canals clear, TM's Normal Nose: no mucosal erythema, no mucosal edema, no purulent discharge Oropharynx: no exudate, no erythema, lips, buccal mucosa, and tongue normal and mucous membranes are moist Neck: supple, no adenopathy, no bruits, thyroid normal size, non-tender, without nodularity Heart: regular rate & rhythm, no murmurs and no gallops Lungs: soft rhonchi vs rales at his B/L bases Abdomen: abdomen soft, non-tender, normal bowel sounds and no masses or organomegaly Extremities: less than 2 second capillary refill, no joint deformities, effusion, or inflammation ASSESSMENT/Plan Coronary artery disease of [place] artery of [place] heart with stable angina pectoris (HCC) (Primary) Pulmonary fibrosis (HCC) Old myocardial infarction Neuropathy Dyslipidemia, goal LDL below 100 - COMPREHENSIVE METABOLIC PANEL; Future; Expected date: 11/16/2023 - LIPID PANEL WITH DIRECT LDL IF TG IS HIGH; Future; Expected date: 11/16/2023 Acute cough - XR CHEST 2 VIEWS - BNP, NT-PRO; Future; Expected date: 05/17/2023 BPH with obstruction/lower urinary tract symptoms - PSA; Future; Expected date: 05/17/2023 Other orders - predniSONE 20 MG Oral Tablet (Deltasone); 1 tab 3 times a day for 3 days, then 1 tab 2 times a day for 3 days, then 1 tab daily for 3 days - Doxycycline Hyclate 100 MG Oral Capsule; Take 1 Capsule by mouth in the morning and 1 Capsule before bedtime. Do all this for 10 days. Until gone.. - HYDROcodone Bit-Homatrop MBr 5-1.5 MG/5ML Oral Solution (Hycodan); Take 5 mL by mouth every 6 hours as needed for Cough. I spent a total of 30 minutes on the date of service in preparation, delivery, and documentation ofthe care provided to this patient, excluding any time spent on the performance of any procedure or separately billable services. Dental and sun care discussed along with weight. Treat for possible infection but check BNP and x-ray to make sure it isn't more heart failure. The above was discussed and understanding was expressed. Rohan Mckenzie DO documented in this encounter Nursing Notes * Socorro French LPN - 05/17/2023 12:42 PM EDT CPE States he has had an ongoing cough & SOB x [address] Sprague & was given steroid documented in this encounter Plan of Treatment Upcoming Encounters Date Type Department Care Team (Latest Contact Info) Description 06/02/2023 11:00 AM EST PulmDiagnostic Pulmonary Function Lab, [facility] [address] [place] [address] [place], [address] [place] [address] 06/18/2023 10:30 AM EST Office Visit Cardiology, [facility] [address] [place] [address] Víctor Mcclain MD [address] [place] [address] 06/23/2023 10:20 AM EST Hospital Encounter OR [facility], Operating Room [facility] [address] [place], [place] [phone] Samuel Simon, DO [address] [place], [place] [address] 06/23/2023 10:20 AM EST - 06/23/2023 10:40 AM EST Surgery OR [facility], Operating Room [facility] [address] [place] [phone] Samuel Simon, DO [address] [place] [address] L-/S-SPINE PARAVERTEBRAL FACET INJ, 1 LEVEL 08/10/2023 1:00 PM EST Nurse Only Ancillary [facility] [address] [facility] [place] [address] Im, Nurse Annual Wellness [facility] [address] [place] [address] 09/21/2023 11:15 AM EST Hospital Encounter ENDO [facility], Endoscopy Room [facility] [address] [place] [phone] Naldo Lyon MD [address] [place] [address] 09/21/2023 11:15 AM EST - 09/21/2023 11:45 AM EST Surgery ENDO [facility], Endoscopy Room [facility] [address] [place] [phone] Naldo Lyon MD [address] [place] [address] COLONOSCOPY FLEXIBLE PROXIMAL DIAGNOSTIC 10/06/2023 1:00 PM EDT Office Visit Podiatry [facility] [address] [facility] [place] [address] Leonela Torre, DPHilario [address] [facility] [place] [address] 12/08/2023 10:00 AM EDT Office Visit Family Practice [facility] 200 [facility] [place], [place] [address] Rohan Mckenzie, DO [address] [facility] [place], [place] [address] 03/02/2024 1:00 PM EDT Office Visit Ophthalmology, [facility] 132 [facility] [place] [address] Abilio Hensley, DO [address] [place] [address] Scheduled Orders Name Type Priority Associated Diagnoses Orde r Schedule COMPREHENSIVE METABOLIC PANEL Lab Routine Dyslipidemia, goal LDL below 100 Expected: 11/16/2023 (Approximate), Expires: 05/17/2024 LIPID PANEL WITH DIRECT LDL IF TG IS HIGH Lab Routine Dyslipidemia, goal LDL below 100 Expected: 11/16/2023, Expires: 05/17/2024 Scheduled Procedures Name Priority Associated Diagnoses Date/Ti [...] 10/10/2020, Additional history exists GFR 12/26/2023 12/25/2022, 02/2023, 11/18/2022, Additional history exists Albumin/Creatinine Ratio 10/23/2025 [...] this encounter Medical Devices Implanted Type Area Wood Sawyer Device Identifier Shelf Expiration Date Model / Serial / Lot Lens 17.5 Sn60wf - [id number] Implanted:Qty : 1 on 06/27/2014 by Rich Brooks MD at OR [facility] Right: Eye [employer] 03/18/2019 SN60WF.17 5 / [id number] / Lens 18.0 Sn60wf - [id number] - [id number] Implanted:Qty : 1 on 07/22/2022 by Abilio Hensley DO at OR [facility] Left: Eye MIRIAN : SURGICAL 11/16/2023 SN60WF.1 8 0 / [id number] / Patch Xenosure [id number] - [id number] Implanted:Qty : 1 on 12/24/2022 by Jean Garcia MD at [place] [facility] Left: Femoral Artery [employer] [id number] 08/15/2028 E0.8P8 / [id number] / [id number] documented as of this encounter Procedures Procedure Name Priority Date/Time Associated Diagnosis Comments XR CHEST 2 VIEWS Routine 05/17/2023 1:35 PM EDT Acute cough documented in this encounter Results * (ABNORMAL) BNP, NT-PRO (05/17/2023 1:37 PM EDT) BNP, NT-Pro 4,123(H) <300 pg/mL 05/17/2023 9:47 PM EDT LAB[facility] Blood Venous blood specimen / Unknown Venipuncture / Unknown 05/17/2023 1:37 PM EDT 05/17/2023 1:38 PM EDT Narrative [facility] - 05/17/2023 9:47 PM EDT Exclude Heart Failure: <300 pg/mL Diagnose Heart Failure: Age <50 yr: >450 pg/mL 50-75 yr: >900 pg/mL >75 yr: >1800 pg/mL GFR is 30-59 mL/min: >1200 pg/mL or Age-adjusted values GFR <30 mL/min: do not use, not reliable Prognostic threshold: 1000 pg/mL Rohan Mckenzie LAB BLOOD ORDERABLE S Performing Organization Address City/[facility]/ZIP Co de Phone Number LABORATORY [facility] [address] [place] [address] * PSA (05/17/2023 1:37 PM EDT) Pathologist [facility] PSA 3.25 <4.10 ng/mL 05/17/2023 10:01 PM EDT LABORATORY [facility] Blood Venous blood specimen / Unknown Venipuncture / Unknown 05/17/2023 1:37 PM EDT 05/17/2023 1:38 PM EDT [facility] LAB BLOOD ORDERABLE S Performing Organization Address City/[facility]/ZIP Co de Phone Number LABORATORY [facility] [address] [place] [address] * XR CHEST 2 VIEWS (05/17/2023 1:35 PM EDT) Anatomical Region Laterality Modality Chest Computed Radiogr aphy 05/18/2023 9:42 PM EDT Impressions 05/18/2023 9:40 PM EDT IMPRESSION 1. New cardiomegaly, suspicious for pericardial effusion. 2. New small to moderate right pleural effusion. In compliance with Act 112, the JERICHO (radiology air defense artillery officer) was contacted to invoke a system-generated communication of the patient's results. Narrative 05/18/2023 9:40 PM EDT EXAM XR CHEST 2 VIEWS - 05/17/2023 1:35 pm HISTORY 67 y/o , M, cough and SOB. TECHNIQUE XR CHEST 2 VIEWS. COMPARISON August 07, 2021 chest radiograph. FINDINGS LINES DEVICES: None. CHEST WALL: Unremarkable. LUNGS: New confluent opacity with meniscus shape silhouettes the right costophrenic angle and hemidiaphragm, compatible with pleural effusion. PNEUMOTHORAX: Absent. CARDIOMEDIASTINAL SILHOUETTE: New cardiomegaly. UPPER ABDOMEN: Unremarkable. OSSEOUS STRUCTURES: The thoracic vertebral body heights are preserved. Procedure Note Avni Ludwig MD - 05/18/2023 EXAM XR CHEST 2 VIEWS - 05/17/2023 1:35 pm HISTORY 67 y/o , M, cough and SOB. TECHNIQUE XR CHEST 2 VIEWS. COMPARISON August 07, 2021 chest radiograph. FINDINGS LINES DEVICES: None. CHEST WALL: Unremarkable. LUNGS: New confluent opacity with meniscus shape silhouettes the rightcostophrenic angle and hemidiaphragm, compatible with pleural effusion. PNEUMOTHORAX: Absent. CARDIOMEDIASTINAL SILHOUETTE: New cardiomegaly. UPPER ABDOMEN: Unremarkable. OSSEOUS STRUCTURES: The thoracic vertebral body heights are preserved. IMPRESSION IMPRESSION 1. New cardiomegaly, suspicious for pericardial effusion. 2. New small to moderate right pleural effusion. In compliance with Act 112, the JERICHO (radiology air defense artillery officer) wascontacted to invoke a system-generated communication of the patient'sresults. Rohan Lugo [facility] RADIOLOGY (RAD GENE RAL) documented in this encounter Visit Diagnoses Diagnosis Coronary artery disease of [place] artery of [place] heart with stable angina pectoris (HCC)- Primary Pulmonary fibrosis (HCC) Postinflammatory pulmonary fibrosis Old myocardial infarction Neuropathy Mononeuritis of unspecified site Dyslipidemia, goal LDL below 100 Other and unspecified hyperlipidemia Acute cough BPH with obstruction/lower urinary tract symptoms Hypertrophy of prostate with urinary obstruction and other lower urinary tract symptoms (LUTS) Spondylosis of lumbar region without myelopathy or [...] and were consensually agreed upon. Care Teams Bone Char Kiln Operator Relationship Specialty Start Date End Date Rohan Mckenzie DO [address] [place], [place] [address] PCP - General Family Medicine 05/27/16 documented as of this encounter
--- OUTSIDE RECORDS SUMMARY | 2023-06-16 01:42 | External Medical Summary | Summary of Care ---
Author Name Unknown Organization [facility] Address [address] [address] Phone [phone] Care Team Providers Care Typing Office Worker Name Role Phone Rohan Mckenzie DO Primary Care Provider [phone] Reason for Visit * Reason Comments Pulmonary Function Test PFT with broncho dilator Encounter Details Date Type Department Care Team (Latest Contact Info) Description 06/02/2023 11:00 AM EST PulmDiagnostic Pulmonary Function Lab, [facility] [address] [place] [address] [place], Pft 132 [facility] [place] [address] Dyspnea on exertion* Allergies No known active [...] PVD (peripheral vascular disease) 10/07/2022 Atherosclerosis of [place] co ronary artery without angina pectoris 09/15/2022 Pulmonary fibrosis 08/07/2021 Lung nodule 05/30/2021 Overview: Repeat CT in 12/07 Abdominal aortic ectasia 02/19/2021 Overview: Recheck 03/10 Coronary artery disease of n ative artery of [place] heart with stable angina pectoris 09/19/2020 Essential (primary) hypertension 09/19/2020 S/P angioplasty with stent 03/07/2020 Coronary artery disease invo lving coronary bypass graft of [place] heart 03/07/2020 Chronic venous stasis dermatitis 02/09/2018 [...] Update ICD-10 update of inactive term 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 documented as of this encounter (statuses as of 06/02/2023) Immunizations Name Administration Dates Next Due COVID-19 mRNA, LNP-s, No Pre serve, 2-Dose Series ([employer]) 05/27/2021,10/10/2020,09/12/2020 Covid-19, Mrna, Lnp-s, Pf, B ivalent, 30 Mcg, IM, 12 yrs and above ([employer]) 06/23/2022 Pneumococcal Conjugate Vacci ne, 20-valent ([id number]) 07/03/2022 Pneumococcal Polysaccharide PPV23 (Pneumovax) 06/17/2021,04/01/2006 SEASONAL [...] 7 years ago. 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 Spirometry, DLCO, RAW, and TGV performed. [...] 06/15/2023 1:30 PM EST Office Visit Cardiology, [facility] [address] [address] Víctor Mcclain MD [address] [place] [address] 06/23/2023 10:20 AM EST Hospital Encounter OR [facility], Operating Room [facility] [address] [place] [phone] Samuel Simon DO [address] [place] [address] 06/23/2023 10:20 AM EST - 06/23/2023 10:40 AM EST Surgery [facility], Operating Room [facility] [address] [place] [phone] Samuel Simon, [address] [place] [address] L-/S-SPINE PARAVERTEBRAL FACET INJ, 1 LEVEL 08/10/2023 1:00 PM EST Nurse Only Ancillary [facility] [address] [place] [address] Im, Nurse Annual Wellness [facility] [address] [place] [address] 09/21/2023 11:15 AM EST Hospital Encounter ENDO [facility], Endoscopy Room [facility] [address] [place] [phone] Naldo Lyon MD [address] [place] [address] 09/21/2023 11:15 AM EST - 09/21/2023 11:45 AM EST Surgery ENDO [facility], Endoscopy Room [facility] [address] [place] [phone] Naldo Lyon MD [address] [place] [address] COLONOSCOPY FLEXIBLE PROXIMAL DIAGNOSTIC 10/06/2023 1:00 PM EDT Office Visit Podiatry [facility] [address] [place] [address] Leonela Torre, DPM [address] [facility] [place] [address] 12/08/2023 10:00 AM EDT Office Visit Family Practice [facility] [address] [place] [address] Rohan Mckenzie, DO [address] [place] [address] 03/02/2024 1:00 PM EDT Office Visit Ophthalmology, [facility] [address] [place] [address] Abilio Hensley, DO [address] [place] [address] Scheduled Procedures Name Priority Associated Diagnoses Date/Ti [...] this encounter Medical Devices Implanted Type Area Tech Intern Device Identifier Shelf Expiration Date Model / Serial / Lot Lens 17.5 Sn60wf - [id number] Implanted:Qty : 1 on 06/27/2014 by Rich Brooks MD at OR [facility] Right: Eye [employer] 03/18/2019 SN60WF.17 5 / [id number] / Lens 18.0 Sn60wf - [id number] - [id number] Implanted:Qty : 1 on 07/22/2022 by Abilio Hensley DO at OR [facility] Left: Eye MIRIAN : SURGICAL 11/16/2023 SN60WF.1 8 0 / [id number] / Patch Xenosure [id number] - [id number] Implanted:Qty : 1 on 12/24/2022 by Jean Garcia MD at OR [facility] Left: Femoral Artery [employer] [id number] 08/15/2028 E0.8P8 / [id number] / [id number] documented as of this encounter Visit Diagnoses [...] and were consensually agreed upon. Care Teams Typing Office Worker Relationship Specialty Start Date End Date Rohan Mckenzie DO [address] [place] [address] PCP - General Family Medicine 05/27/16 documented as of this encounter
--- OUTSIDE RECORDS SUMMARY | 2023-06-16 01:42 | External Medical Summary | Summary of Care ---
Author Name Unknown Organization [facility] Address [address] [facility] [facility] [address] Phone [phone] Care Team Providers Care Fundraiser Name Role Phone Rohan Mckenzie DO Primary Care Provider [phone] Reason for Visit * Reason Onset Date Comments Test Results 05/18/2023 XR CHEST 2 VIEWS Encounter Details Date Type Department Care Team (Late st Contact Info) Description 05/18/2023 Telephone Family Practice [facility] [place] [address] [facility] [place] [address] Rohan Mckenzie DO [address] [facility] [place] [address] Test Results ( XR CHEST 2 VIEWS) [...] PVD (peripheral vascular disease) 10/07/2022 Atherosclerosis of [place] co ronary artery without angina pectoris 09/15/2022 Pulmonary fibrosis 08/07/2021 Lung nodule 05/30/2021 Overview: Repeat CT in 12/07 Abdominal aortic ectasia 02/19/2021 Overview: Recheck 03/10 Coronary artery disease of n ative artery of [place] heart with stable angina pectoris 09/19/2020 Essential (primary) hypertension 09/19/2020 S/P angioplasty with stent 03/07/2020 Coronary artery disease invo lving coronary bypass graft of [place] heart 03/07/2020 Chronic venous stasis dermatitis 02/09/2018 [...] wall [place], angioplasty and stent placement at [facility]. documented as of this encounter (statuses as of 05/27/2023) Immunizations Name Administration Dates Next Due COVID-19 mRNA, LNP-s, No Pre serve, 2-Dose Series ([employer]) 05/27/2021,10/10/2020,09/12/2020 Covid-19, Mrna, Lnp-s, Pf, B ivalent, 30 Mcg, IM, 12 yrs and above ([employer]) 06/23/2022 Pneumococcal Conjugate Vacci ne, 20-valent ([id number]) 07/03/2022 Pneumococcal Polysaccharide PPV23 (Pneumovax) 06/17/2021,04/01/2006 SEASONAL [...] unexpected or indeterminate finding on Brandan Morgan ([id number]) and asks that you review the following report. Study Type: XR CHEST 2 VIEWS Date of Study: 05/18/2023 IMPRESSION 1. New cardiomegaly, suspicious for pericardial effusion. 2. New small to moderate right pleural effusion. Please respond to this encounter to acknowledge receipt of this message and take responsibility to ensure this report is reviewed. Thank you, CHE Ch Client Service [facility] Diagnostic Medicine [place] documented in this encounter Plan of Treatment Upcoming Encounters Date Type Department Care Team (Latest Contact Info) Description 06/02/2023 11:00 AM EST PulmDiagnostic Pulmonary Function Lab, [facility] [address] [place] [address] [place], [address] [place] [address] 06/18/2023 10:30 AM EST Office Visit Cardiology, [facility] [address] [place] [address] Víctor Mcclain MD [address] [place] [address] 06/23/2023 10:20 AM EST Hospital Encounter [facility], Operating Room [facility] [address] [place] [phone] Samuel Simon, DO [address] [place] [address] 06/23/2023 10:20 AM EST - 06/23/2023 10:40 AM EST Surgery [facility], Operating Room [facility] [address] [place] [phone] Samuel Simon, DO [address] [place], [place] [address] L-/S-SPINE PARAVERTEBRAL FACET INJ, 1 LEVEL 08/10/2023 1:00 PM EST Nurse Only Ancillary [facility] [address] [place] [address] Im, Nurse Annual Wellness [facility] [address] [place] [address] 09/21/2023 11:15 AM EST Hospital Encounter ENDO [facility], Endoscopy Room [facility] [address] [place] [phone] Naldo Lyon MD [address] [place] [address] 09/21/2023 11:15 AM EST - 09/21/2023 11:45 AM EST Surgery ENDO [facility], Endoscopy Room [facility] [address] [place] [phone] Naldo Lyon MD [address] [place] [address] COLONOSCOPY FLEXIBLE PROXIMAL DIAGNOSTIC 10/06/2023 1:00 PM EDT Office Visit Podiatry [facility] [address] [facility] [place] [address] Leonela Torre, DPHilario 400 [facility] [place] [address] 12/08/2023 10:00 AM EDT Office Visit Family Practice [facility] [address] [facility] [place] [address] Rohan Mckenzie, DO [address] [facility] [place] [address] 03/02/2024 1:00 PM EDT Office Visit Ophthalmology, [facility] 132 [facility] [place] [address] Abilio Hensley, DO 21 [facility] [place] [address] Scheduled Procedures Name Priority Associated Diagnoses Date/Ti [...] this encounter Medical Devices Implanted Type Area Html Developer Device Identifier Shelf Expiration Date Model / Serial / Lot Lens 17.5 Sn60wf - [id number] Implanted:Qty : 1 on 06/27/2014 by Rich Brooks MD at OR [facility] Right: Eye [employer] 03/18/2019 SN60WF.17 5 / [id number] / Lens 18.0 Sn60wf - [id number] - [id number] Implanted:Qty : 1 on 07/22/2022 by Abilio Hensley DO at OR [facility] Left: Eye MIRIAN : SURGICAL 11/16/2023 SN60WF.1 8 0 / [id number] / Patch Xenosure [id number] - [id number] Implanted:Qty : 1 on 12/24/2022 by Jean Garcia MD at OR [facility] Left: Femoral Artery [employer] [id number] 08/15/2028 E0.8P8 / [id number] / [id number] documented as of this encounter Advance Directives [...] and were consensually agreed upon. Care Teams Fundraiser Relationship Specialty Start Date End Date Rohan Mckenzie DO [address] [place] [address] PCP - General Family Medicine 05/27/16 documented as of this encounter
--- OUTSIDE RECORDS SUMMARY | 2023-06-16 01:43 | External Medical Summary | Summary of Care ---
Author Name Unknown Organization [facility] Address [address] [facility] [place] [address] Phone [phone] Care Team Providers Care Green End Man Name Role Phone Rohan Mckenzie DO Primary Care Provider [phone] Reason for Visit * Reason Onset Date Comments Medication Administration 04/07/2023 Flu an d/or Pneumo Inj Encounter Details Date Type Department Care Team Description 04/07/2023 Immunization Ancillary [facility] [address] [place] [address] [place] [facility] [address] [facility] [place] [address] Need for prophylactic vaccination and inoculation against influenza* Allergies No known active allergiesdocumented as of this encounter (statuses as of 04/07/2023) Medications Medication Sig Dispensed Refills Start Date [...] every 5 minutes as needed. 0 Active Furosemide 20 MG Oral Tablet (Lasix) TAKE 1-2 TABS PER WEEK DIRECTED 24 Tablet 6 03/18/2022 Active Losartan Potassium 100 MG Oral Tablet (Cozaar) TAKE 1 TABLET BY MOUTH EVERY DAY 90 Tablet 3 04/24/2022 Active Albuterol Sulfate HFA 108 (90 Base) MCG/ACT Inhalation Aerosol Solution Inhale 2 Puffs by mouth every 6 hours as needed for Wheezing. 18 g 1 09/15/2022 Active Metoprolol Succinate ER 50 MG Oral [...] EVERY DAY 90 Tablet 1 04/07/2023 Active documented as of this encounter (statuses as of 04/07/2023) Active Problems Problem Noted Date Tinea pedis of both feet 11/18/2022 Infrarenal abdominal aortic aneurysm (AA A) without rupture 11/18/2022 Carotid stenosis, non-symptomatic, bilat eral 11/18/2022 PVD (peripheral vascular disease) 2022 Atherosclerosis of [place] coronary arter y without angina pectoris 09/15/2022 Lung fibrosis 08/07/2021 Lung nodule 05/30/2021 Overview: Repeat CT in 12/07 Abdominal aortic ectasia 02/19/2021 Overview: Recheck 03/10 Coronary artery disease of n ative artery of [place] heart with stable angina pectoris 09/19/2020 Essential (primary) hypertension 021 S/P angioplasty with stent 03/07/2020 Coronary artery disease involving huddleston ry bypass graft of [place] heart 03/07/2020 Chronic venous stasis dermatitis 018 Cataract extraction status 06/12/2015 Dyslipidemia, goal LDL below 100 011 Gouty arthropathy 05/02/2009 History of colonic polyps [...] as of this encounter (statuses as of 04/07/2023) Resolved Problems Problem Noted Date Resolved Date Neuropathic foot ulcer, right, with fat layer ex posed 08/17/2019 02/11/2021 Oral cancer 08/13/2015 08/17/2019 Overview: 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 documented as of this encounter (statuses as of 04/07/2023) Immunizations Name Administration Dates Next Due COVID-19 mRNA, LNP-s, No Pre serve, 2-Dose Series ([employer]) 05/27/2021,10/10/2020,09/12/2020 Covid-19, Mrna, Lnp-s, Pf, B ivalent, 30 Mcg, IM, 12 yrs and above (Pfizer) 06/23/2022 Pneumococcal Conjugate Vacci ne, 20-valent ([id number]) 07/03/2022 Pneumococcal Polysaccharide PPV23 (Pneumovax) 06/17/2021,04/01/2006 Seasonal Influenza, PF, 6 mo ns & Above, IM , (Flulaval) 04/01/2020,04/10/2019,04/26/2018,04/21 Seasonal Influenza, Quadriva lent Hd (Fluzone [...] pur e alcohol) 4-6 beer per day Alcohol Habits Answer Date Recorded How often do you have a drink containing alcohol ? Not asked How many drinks containing a lcohol do you have on a typical day when you are drinking? 5 or 6 12/13/2018 How often do you have six or more drinks on one occasion? Not asked Sex Assigned at Date Recorded Not on file Job Start Date Occupation [...] as of this encounter Progress Notes * Clemencia Velásquez RN - 04/07/2023 1:21 PM EDT PRE - ADMINISTRATION DOCUMENTATION Are you experiencing any cold symptoms or fever? No Have you had Guillain-Woodruff Syndrome (an illness that causes paralysis) within the last 6 weeks? No Have you had the flu shot in the past? YES Have you ever had a reaction to the flu shot? No Clemencia Velásquez RN, 04/07/2023 1:21 PM Immunization Administration Documentation Time Out Procedure Performed: Yes Patient Identified (Ask Name/Date of ): Yes Does the patient have a fever greater than 101 degrees today? No Patient allergic to latex? No VFC Stock: No Immunization(s) verified: Yes, Immunization Name: Flu, VIS Sheet(s) given: Yes Verified Side and Site: Yes Verified Shot(s) with Parent(s)/Patient: Yes documented in this encounter Plan of Treatment Upcoming Encounters Date Type Specialty Care Team Description 04/19/2023 Office Visit Cardiology Víctor Mcclain MD [address] [place] [address] 05/17/2023 Office Visit Family Medicine Rohan Mckenzie, DO [address] [place], [place] [address] 05/20/2023 Office Visit Ophthalmology Abilio Hensley, DO 21 [facility] [place] [phone] 05/25/2023 Hospital Encounter Endoscopy Naldo Lyon MD [address] [place] [address] 05/25/2023 Surgery Endoscopy Naldo Lyon MD [address] [place] [address] COLONOSCOPY FLEXIBLE PROXIMAL DIAGNOSTIC 10/06/2023 Office Visit Podiatry Leonela Torre, DPM 400 [facility] [place] [address] Scheduled Procedures Name Priority Associated Diagnoses Date/Ti me COLONOSCOPY FLEXIBLE PROXIMAL DIAGNOSTIC Recall History of colon polyps 05/25/2023 11:45 AM EST Health Maintenance Due Date Last Done Comments Depression Screening 02/08/2020 02/07/2019 COLONOSCOPY-EVERY 5 YRS AGES 18-100 01/12/2023 01/12/2018, 01/12/2018, 01/17/2013, Additional history exists GFR 12/26/2023 12/25/2022, 02/2023, 11/18/2022, Additional history exists Albumin/Creatinine Ratio 10/23/2025 10/23/2022 Diabetes Screening 12/25/2025 12/25/2022, 0 12/25/2022, 12/24/2022, Additional history exists DTaP,Tdap,and Td Vaccines (4 - Td or Tdap) 04/21/2027 04/21/2017, 05/27/2016, 03/05/2006 Zoster Vaccines Completed 08/17/2019, 04/20, 07/02/2016 COVID-19 Vaccine Completed 06/23/2022, 03/2021, 10/10/2020, Additional history exists Pneumococcal Vaccine: 65+ Years Completed 07/03/2022, 06/17/2021, [...] this encounter Medical Devices Implanted Type Area Completion Engineer Device Identifier Shelf Expiration Date Model / Serial / Lot Lens 17.5 Sn60wf - [id number] Implanted:Qty : 1 on 06/27/2014 by Rich Brooks MD at OR [facility] Right: Eye [employer] 03/18/2019 SN60WF.17 5 / [id number] / Lens 18.0 Sn60wf - [id number] - [id number] Implanted:Qty : 1 on 07/22/2022 by Abilio Hensley DO at OR [facility] Left: Eye MIRIAN : SURGICAL 11/16/2023 SN60WF.1 8 0 / [id number] / Patch Xenosure [id number] - [id number] Implanted:Qty : 1 on 12/24/2022 by Jean Garcia MD at OR [facility] Left: Femoral Artery [employer] [id number] 08/15/2028 E0.8P8 / [id number] / [id number] documented as of this encounter Visit Diagnoses Diagnosis Need for prophylactic vaccination and inoculation against influenza- Primary History of colon polyps Personal history of [...] and were consensually agreed upon. Care Teams Green End Man Relationship Specialty Start Date End Date Rohan Mckenzie, DO [address] [place] [address] PCP - General Family Medicine 05/27/16 documented as of this encounter
--- OUTSIDE RECORDS SUMMARY | 2023-06-16 01:43 | External Medical Summary | Summary of Care ---
Author Name Unknown Organization [facility] Address [address] [facility] [place] [address] Phone [phone] Care Team Providers Care Glue Size Machine Operator Name Role Phone Rohan Mckenzie DO Primary Care Provider [phone] Encounter Details Date Type Department Care Team Description 03/04/2023 Patient Reported Data Patient Survey Ortho [facility] Allergies No known active allergiesdocumented as of this encounter (statuses as of 03/04/2023) Medications Medication Sig Dispensed Refills Start Date [...] for Wheezing. 18 g 1 09/15/2022 Active Allopurinol 300 MG Oral Tablet (Zyloprim)Indicatio ns:Gouty arthropathy TAKE 1 TABLET BY MOUTH EVERY DAY 90 Tablet 1 09/21/2022 Active Metoprolol Succinate ER 50 MG Oral Tablet Extended Release 24 Hour (toPROL XL) TAKE 1/2 TABLET BY MOUTH EVERY DAY 45 Tablet 3 10/01/2022 Active Simvastatin 40 MG Oral Tablet (Zocor)Indications: Dyslipidemia, goal LDL below 100 TAKE 1 TABLET BY MOUTH EVERY DAY 90 Tablet 1 10/07/2022 Active Econazole Nitrate 1 % External Cream [...] THE MORNING 90 Tablet 3 01/14/2023 Active documented as of this encounter (statuses as of 03/04/2023) Active Problems Problem Noted Date Tinea pedis of both feet 11/18/2022 Infrarenal abdominal aortic aneurysm (AA A) without rupture 11/18/2022 Carotid stenosis, non-symptomatic, bilat eral 11/18/2022 PVD (peripheral vascular disease) 2022 Atherosclerosis of [place] coronary arter y without angina pectoris 09/15/2022 Lung fibrosis 08/07/2021 Lung nodule 05/30/2021 Overview: Repeat CT in 12/07 Abdominal aortic ectasia 02/19/2021 Overview: Recheck 03/10 Coronary artery disease of n ative artery of [place] heart with stable angina pectoris 09/19/2020 Essential (primary) hypertension 021 S/P angioplasty with stent 03/07/2020 Coronary artery disease involving huddleston ry bypass graft of [place] heart 03/07/2020 Chronic venous stasis dermatitis 018 [...] as of this encounter (statuses as of 03/04/2023) Resolved Problems Problem Noted Date Resolved Date [...] Update ICD-10 update of inactive term 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 documented as of this encounter (statuses as of 03/04/2023) Immunizations Name Administration Dates Next Due COVID-19 mRNA, LNP-s, No Pre serve, 2-Dose Series ([facility]) 05/27/2021,10/10/2020,09/12/2020 Covid-19, Mrna, Lnp-s, Pf, B ivalent, 30 Mcg, IM, 12 yrs and above ([facility]) 06/23/2022 Pneumococcal Conjugate Vacci ne, 20-valent ([id number]) 07/03/2022 Pneumococcal Polysaccharide PPV23 (Pneumovax) 06/17/2021,04/01/2006 Seasonal Influenza, Quadriva lent Hd (Fluzone Hd) 04/08/2022,04/22/2021 Seasonal Influenza, Quadriva lent, No Preserve, 6 Mons & Above, IM 04/01/2020,04/10/2019,04/26/2018,04/21 Seasonal Influenza, Quadriva lent, No Preserve, IM [...] No 12/24/2022 documented as of this encounter Plan of Treatment Upcoming Encounters Date Type Specialty Care Team Description 04/07/2023 Office Visit Podiatry Leonela Torre, DPM [address] [facility] [place] [id number] 05/17/2023 Office Visit Family Medicine Rohan Mckenzie, DO [address] [facility] [address] 05/20/2023 Office Visit Ophthalmology Abilio Hensley, DO 21 [facility] [place] [address] 05/25/2023 Hospital Encounter Endoscopy Naldo Lyon MD [address] [place] [address] 05/25/2023 Surgery Endoscopy Naldo Lyon MD [address] [place] [address] COLONOSCOPY FLEXIBLE PROXIMAL DIAGNOSTIC Scheduled Procedures Name Priority Associated Diagnoses Date/Ti me COLONOSCOPY FLEXIBLE PROXIMAL DIAGNOSTIC Recall History of colon polyps 05/25/2023 11:45 AM EST Health Maintenance Due Date Last Done Comments Depression Screening, Annual for Pts 12 and Over 02/08/2020 02/07/2019 COLONOSCOPY-EVERY 5 YRS AGES 18-100 01/12/2023 01/12/2018, 01/12/2018, 01/17/2013, Additional history exists Influenza Vaccine (FLU shot) (#1) 2023 04/08/2022, 04/22/2021, 04/01/2020, Additional history exists GFR 12/26/2023 12/25/2022, 02/2023, 11/18/2022, Additional history exists Albumin/Creatinine Ratio 10/23/2025 10/23/2022 Diabetes Screening 12/25/2025 12/25/2022, 0 12/25/2022, 12/24/2022, Additional history exists DTaP,Tdap,and Td Vaccines (4 - Td or Tdap) 04/21/2027 04/21/2017, 05/27/2016, 03/05/2006 Zoster Vaccines Completed 08/17/2019, 04/20, 07/02/2016 COVID-19 Vaccine Completed 06/23/2022, 03/2021, 10/10/2020, Additional history exists Pneumococcal Vaccine: 65+ Years Completed 07/03/2022, 06/17/2021, 04/01/2006 GARDASIL-HPV IMMUNIZATION SERIES Aged Out No longer eligible based on patient's age to complete this topic Hepatitis B Aged Out No longer eligi ble based on patient's age to complete this topic MENINGOCOCCAL (MENACTRA/MENVEO) Aged Out No longer eligible based on patient's age to complete this topic documented as of this encounter Medical Devices Implanted Type Area Electronics Technician Apprentice Device Identifier Shelf Expiration Date Model / Serial / Lot Lens 17.5 Sn60wf - [id number] Implanted:Qty : 1 on 06/27/2014 by Rich Brooks MD at OR [facility] Right: Eye [employer] 03/18/2019 SN60WF.17 5 / [id number] / Lens 18.0 Sn60wf - [id number] - [id number] Implanted:Qty : 1 on 07/22/2022 by Abilio Hensley DO at OR [facility] Left: Eye MIRIAN : SURGICAL 11/16/2023 SN60WF.1 8 0 / [id number] / Patch Xenosure [id number] - [id number] Implanted:Qty : 1 on 12/24/2022 by Jean Garcia MD at OR [facility] Left: Femoral Artery [employer] [id number] 08/15/2028 E0.8P8 / [id number] / [id number] documented as of this encounter Advance Directives [...] and were consensually agreed upon. Care Teams Glue Size Machine Operator Relationship Specialty Start Date End Date Rohan Mckenzie, DO [address] [place] [address] PCP - General Family Medicine 05/27/16 documented as of this encounter
--- OUTSIDE RECORDS SUMMARY | 2023-06-16 01:43 | External Medical Summary | Summary of Care ---
Author Name Unknown Organization [facility] Address [address] [place] [address] Phone [phone] Care Team Providers Care Journal Clerk Name Role Phone Trinity Salinas DO Primary Care Provider [phone] Reason for Visit * Reason Comments eRx-Medication Refill Encounter Details Date Type Department Care Team Description 03/21/2023 Refill Family Practice [facility] [place] [address] [facility] [place] [address] Trinity Salinas DO 200 [facility] [place] [address] Gouty arthropathy Allergies No known active allergiesdocumented as of this encounter (statuses as of 03/23/2023) Medications Medication Sig Dispensed Refills Start Date [...] neuropathic ulceration right foot 1 Each 0 9 Active nitroglycerin (NITROSTAT) 0.[address] 1 Tablet under the tongue every 5 minutes as needed. 0 Active Furosemide 20 MG Oral Tablet (Lasix) TAKE 1-2 TABS PER WEEK DIRECTED 24 Tablet 6 2 Active Losartan Potassium 100 MG Oral Tablet (Cozaar) TAKE 1 TABLET BY MOUTH EVERY DAY 90 Tablet 3 10/07/202 2 Active Albuterol Sulfate HFA 108 (90 Base) MCG/ACT Inhalation Aerosol Solution Inhale 2 Puffs by mouth every 6 hours as needed for Wheezing. 18 g 1 3 Active Metoprolol Succinate ER 50 MG Oral Tablet Extended Release 24 Hour (toPROL XL) TAKE 1/2 TABLET BY MOUTH EVERY DAY 45 Tablet 3 3 Active Simvastatin 40 MG Oral Tablet (Zocor)Indications :Dyslipidemia, goal LDL below 100 TAKE 1 TABLET BY MOUTH EVERY DAY 90 Tablet 1 3 Active Econazole Nitrate 1 % External Cream (Spectazole)Indica tions:History of tinea pedis,Onychomycosi s Apply to feet (on nails and in between toes) 2x weekly as maintenance for tinea pedis 85 g 3 3 Active Ezetimibe 10 MG Oral Tablet (Zetia)Indications :High triglycerides TAKE 1 TABLET BY MOUTH EVERY DAY IN THE MORNING 90 Tablet 3 3 Active Aspirin Low Dose 81 MG Oral Tablet Delayed Release (aspirin enteric coated)Indications :High triglycerides TAKE 1 TABLET BY MOUTH EVERY DAY IN THE MORNING 90 Tablet 3 3 Active Allopurinol 300 MG Oral Tablet (Zyloprim)Indicati ons:Gouty arthropathy TAKE 1 TABLET BY MOUTH EVERY DAY 90 Tablet 1 3 Active Allopurinol 300 MG Oral Tablet (Zyloprim)Indicati ons:Gouty arthropathy TAKE 1 TABLET BY MOUTH EVERY DAY 90 Tablet 1 3 03/23/20 23 Discontinued documented as of this encounter (statuses as of 03/23/2023) Active Problems Problem Noted Date Tinea pedis of both feet 11/18/2022 Infrarenal abdominal aortic aneurysm (AA A) without rupture 11/18/2022 Carotid stenosis, non-symptomatic, bilat eral 11/18/2022 PVD (peripheral vascular disease) 2022 Atherosclerosis of rincon coronary arter y without angina pectoris 09/15/2022 Lung fibrosis 08/07/2021 Lung nodule 05/30/2021 Overview: Repeat CT in 12/07 Abdominal aortic ectasia 02/19/2021 Overview: Recheck 03/10 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 documented as of this encounter (statuses as of 03/23/2023) Immunizations Name Administration Dates Next Due COVID-19 mRNA, LNP-s, No Pre serve, 2-Dose Series (Tenrox) 05/27/2021,10/10/2020,09/12/2020 Covid-19, Mrna, Lnp-s, Pf, B ivalent, 30 Mcg, IM, 12 yrs and above (Pfizer) 06/23/2022 Pneumococcal Conjugate Vacci ne, 20-valent ([id number]) 07/03/2022 Pneumococcal Polysaccharide PPV23 (Pneumovax) 06/17/2021,04/01/2006 Seasonal Influenza, PF, 6 mo ns & Above, IM , (Flulaval) 04/01/2020,04/10/2019,04/26/2018,04/21 Seasonal Influenza, Quadriva lent Hd (Fluzone Hd) 04/08/2022,04/22/2021 Seasonal Influenza, Quadriva lent, No Preserve, IM [...] encounter Miscellaneous Notes * Telephone Encounter - Savanah Hernandez [facility] - 03/23/2023 1:37 PM EDT Signed Prescriptions: Disp Refills Allopurinol 300 MG Oral Tablet (Zyloprim) 90 Tab*1 Sig: TAKE 1 TABLET BY MOUTH EVERY DAYAuthorizing Provider: TRINITY SALINAS User: SAVANAH HERNANDEZ documented in this encounter Plan of Treatment Upcoming Encounters Date Type Specialty Care Team Description 04/07/2023 [facility] [place] [address] 05/17/2023 Office Visit Family Medicine Trinity Salinas DO 200 [facility], [place] [address] 05/20/2023 Office Visit Ophthalmology Abilio Hensley, DO [address] [facility] [place] [address] 05/25/2023 Hospital Encounter Endoscopy Naldo Lyon MD [address] [place] [address] 05/25/2023 Surgery Endoscopy Naldo Lyon MD [address] [place] [address] COLONOSCOPY FLEXIBLE PROXIMAL DIAGNOSTIC Scheduled Procedures Name [...] this encounter Medical Devices Implanted Type Area Saw Cleaner Device Identifier Shelf Expiration Date Model / Serial / Lot Lens 17.5 Sn60wf - [id number] Implanted:Qty : 1 on 06/27/2014 by Rich Brooks MD at OR [facility] Right: Eye [employer] 03/18/2019 SN60WF.17 5 / [id number] / Lens 18.0 Sn60wf - [id number] - [id number] Implanted:Qty : 1 on 07/22/2022 by Abilio Hensley DO at OR [facility] Left: Eye MIRIAN : SURGICAL 11/16/2023 SN60WF.1 8 0 / [id number] / Patch Xenosure [id number] - [id number] Implanted:Qty : 1 on 12/24/2022 by Jean Garcia MD [place] [facility] Left: Femoral Artery [employer] [id number] 08/15/2028 E0.8P8 / [id number] / [id number] documented as of this encounter Visit Diagnoses Diagnosis Gouty arthropathy Gouty arthropathy, unspecified History of colon polyps Personal history of [...] and were consensually agreed upon. Care Teams Journal Clerk Relationship Specialty Start Date End Date Trinity Salinas, DO 200 [place] [address] PCP - General Family Medicine 05/27/16 documented as of this encounter
--- OUTSIDE RECORDS SUMMARY | 2023-06-16 01:43 | External Medical Summary | Summary of Care ---
Author Name Unknown Organization [facility] Address [address] [facility] [place] [address] Phone [phone] Care Team Providers Care Gasoline Tester Name Role Phone Trinity Mckenzie DO Primary Care Provider [phone] Reason for Visit * Reason Comments eRx-Medication Refill Encounter Details Date Type Department Care Team Description 04/07/2023 Refill Family Practice [facility] [place] [facility] [place] [place] [address] Trinity Mckenzie DO 200 [facility] [place] [address] Dyslipidemia, goal LDL below 100 Allergies No known active allergiesdocumented as of [...] BY MOUTH EVERY DAY 90 Tablet 3 2 Active Albuterol Sulfate HFA 108 (90 Base) MCG/ACT Inhalation Aerosol Solution Inhale 2 Puffs by mouth every 6 hours as needed for Wheezing. 18 g 1 3 Active Metoprolol Succinate ER 50 MG Oral Tablet Extended Release 24 Hour (toPROL XL) TAKE 1/2 TABLET BY MOUTH EVERY DAY 45 Tablet 3 3 Active Econazole Nitrate 1 % External [...] EVERY DAY 90 Tablet 1 3 Active Simvastatin 40 MG Oral Tablet (Zocor)Indications :Dyslipidemia, goal LDL below 100 TAKE 1 TABLET BY MOUTH EVERY DAY 90 Tablet 1 3 Active Simvastatin 40 MG Oral Tablet (Zocor)Indications :Dyslipidemia, goal LDL below 100 TAKE 1 TABLET BY MOUTH EVERY DAY 90 Tablet 1 3 04/07/20 23 Discontinued documented as of this encounter (statuses as of 04/07/2023) Active Problems Problem Noted Date Tinea pedis of both feet 11/18/2022 Infrarenal abdominal aortic aneurysm (AA A) without rupture 11/18/2022 Carotid stenosis, non-symptomatic, bilat eral 11/18/2022 PVD (peripheral vascular disease) 2022 Atherosclerosis of tribal coronary arter y without angina pectoris 09/15/2022 Lung fibrosis 08/07/2021 Lung nodule 05/30/2021 Overview: Repeat CT in 12/07 Abdominal aortic ectasia 02/19/2021 Overview: Recheck 03/10 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 documented as of this encounter (statuses as of 04/07/2023) Immunizations Name Administration Dates Next Due COVID-19 mRNA, LNP-s, No Pre serve, 2-Dose Series (Taptu) 05/27/2021,10/10/2020,09/12/2020 Covid-19, Mrna, Lnp-s, Pf, B ivalent, 30 Mcg, IM, 12 yrs and above (Pfizer) 06/23/2022 Pneumococcal Conjugate Vacci ne, 20-valent ([id number]) 07/03/2022 Pneumococcal Polysaccharide PPV23 (Pneumovax) 06/17/2021,04/01/2006 Seasonal [...] encounter Miscellaneous Notes * Telephone Encounter - Daniele Gerard [facility] - 04/07/2023 12:26 PM EDTSigned Prescriptions: Disp Refills Simvastatin 40 MG Oral Tablet (Zocor) 90 Tab*1 Sig: TAKE 1 TABLET BY MOUTH EVERY DAYAuthorizing Provider: TRINITY MCKENZIE User: DANIELE GERARD--------- documented in this encounter Plan of Treatment Upcoming Encounters Date Type Specialty Care Team Description 04/07/2023 Office Visit Podiatry Leonela Torre DPM [address] [place] [address] 04/07/2023 Immunization Ancillary [place], Flu Shot [facility] [address] [place] [address] Arrived 04/19/2023 Office Visit Cardiology Víctor Mcclain MD [address] [place] [address] 05/17/2023 Office Visit Family Medicine Trinity Mckenzie DO 200 [facility] [place] [place] [address] 05/20/2023 Office Visit Ophthalmology Abilio Hensley DO [address] [facility] [place] [address] 05/25/2023 Hospital Encounter Endoscopy Naldo Lyon MD [address] [place] [address] 05/25/2023 Surgery Endoscopy Naldo Lyon MD [address] [place] [address] COLONOSCOPY FLEXIBLE PROXIMAL DIAGNOSTIC Scheduled Procedures Name Priority Associated Diagnoses Date/Ti me COLONOSCOPY FLEXIBLE PROXIMAL DIAGNOSTIC Recall History of colon polyps 05/25/2023 11:45 AM EST Health Maintenance Due Date Last Done Comments Depression Screening 02/08/2020 02/07/2019 COLONOSCOPY-EVERY 5 YRS AGES 18-100 01/12/2023 01/12/2018, 01/12/2018, 01/17/2013, Additional history exists Influenza Vaccine (FLU shot) (#1) 2023 04/08/2022, 04/22/2021, 04/01/2020, Additional history exists GFR 12/26/2023 12/25/2022, 0602/2023, [...] this encounter Medical Devices Implanted Type Area Rn Nicu Device Identifier Shelf Expiration Date Model / Serial / Lot Lens 17.5 Sn60wf - [id number] Implanted:Qty : 1 on 06/27/2014 by Rich Brooks MD at OR [facility] Right: Eye [employer] 03/18/2019 SN60WF.17 5 / [id number] / Lens 18.0 Sn60wf - [id number] - [id number] Implanted:Qty : 1 on 07/22/2022 by Abilio Hensley DO at OR [facility] Left: Eye MIRIAN : SURGICAL 11/16/2023 SN60WF.1 8 0 / [id number] / Patch Xenosure [id number] - [id number] Implanted:Qty : 1 on 12/24/2022 [place] Jean Garcia [place] [facility]: Femoral Artery [employer] [id number] 08/15/2028 E0.8P8 / [id number] / [id number] documented as of this encounter Visit Diagnoses Diagnosis Dyslipidemia, goal LDL below 100 Other and unspecified hyperlipidemia History of colon polyps Personal history of [...] and were consensually agreed upon. Care Teams Gasoline Tester Relationship Specialty Start Date End Date Trinity Mckenzie, DO 200 [facility] [place] [place] [address] PCP - General Family Medicine 05/27/16 documented as of this encounter
--- OUTSIDE RECORDS SUMMARY | 2023-06-16 01:43 | External Medical Summary ---
Author Name Unknown Address Unknown Organization K01:LABORATORY [facility] - [address] [place] [address] Laboratory Report Ordering Provider Test Date Status RITA PETERSEN 05/17/2023 13:37:45 Final Observation Date Value Abnormality Reference (Units ) Status PSA 05/17/2023 13:37:45 3.25 <4.10 (ng/ mL) Final Performing Location LAB[facility]ATORY [facility] - [address] [place] [address]
--- OUTSIDE RECORDS SUMMARY | 2023-06-16 01:43 | External Medical Summary | Summary of Care ---
Author Name Unknown Organization [facility] Address [address] [facility] [place] [address] Phone [phone] Care Team Providers Care Grain Elevator Worker Name Role Phone Rohan Mckenzie DO Primary Care Provider [phone] Reason for Visit * Reason Onset Date Comments Medication Refill 04/21/2023 Encounter Details Date Type Department Care Team Description 04/21/2023 Refill Family Practice [facility] [place] 200 [facility] [place] [address] Stefanie Montalvo PA-C 200 [facility] [place] [address] Allergies No known active allergiesdocumented as of this encounter (statuses as of 04/22/2023) Medications Medication Sig Dispensed Refills Start Date [...] WEEK DIRECTED 24 Tablet 6 03/18/2022 Active Metoprolol Succinate ER 50 MG Oral [...] for Wheezing. 18 g 1 04/22/2023 Active Albuterol Sulfate HFA 108 (90 Base) MCG/ACT Inhalation Aerosol Solution Inhale 2 Puffs by mouth every 6 hours as needed for Wheezing. 18 g 1 09/15/2022 3 Discontinu ed(Refill) documented as of this encounter (statuses as of 04/22/2023) Active Problems Problem Noted Date Tinea pedis of both feet 11/18/2022 Infrarenal abdominal aortic aneurysm (AA A) without rupture 11/18/2022 Carotid stenosis, non-symptomatic, bilat eral 11/18/2022 PVD (peripheral vascular disease) 2022 Atherosclerosis of [place] coronary arter y without angina pectoris 09/15/2022 Lung fibrosis 08/07/2021 Lung nodule 05/30/2021 Overview: Repeat CT in 12/07 Abdominal aortic ectasia 02/19/2021 Overview: Recheck 03/10 Coronary artery disease of n ative artery of chin[place] heart with stable angina pectoris 09/19/2020 Essential (primary) hypertension 021 S/P angioplasty with stent 03/07/2020 Coronary artery disease involving huddleston ry bypass graft of chinik heart 03/07/2020 Chronic venous stasis dermatitis 018 [...] as of this encounter (statuses as of 04/22/2023) Resolved Problems Problem Noted Date Resolved Date [...] Update ICD-10 update of inactive term 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 documented as of this encounter (statuses as of 04/22/2023) Immunizations Name Administration Dates Next Due COVID-19 mRNA, LNP-s, No Pre serve, 2-Dose Series (Pfizer) 05/27/2021,10/10/2020,09/12/2020 Covid-19, Mrna, Lnp-s, Pf, B ivalent, 30 Mcg, IM, 12 yrs and above (Pfizer) 06/23/2022 Pneumococcal Conjugate Vacci ne, 20-valent ([id number]) 07/03/2022 Pneumococcal Polysaccharide PPV23 (Pneumovax) 06/17/2021,04/01/2006 SEASONAL [...] encounter Miscellaneous Notes * Telephone Encounter - Stefanie Montalvo PA-C - 04/22/2023 5:47 PM EDTSigned Prescriptions: Disp Refills Albuterol Sulfate HFA 108 (90 Base) MCG/AC*18 g 1 Sig: Inhale 2 Puffs by mouth every 6 hours as needed for Wheezing. Authorizing Provider: STEFANIE MONTALVO * Telephone Encounter - [facility] - 04/22/2023 3:17 PM EDTPending Prescriptions: Disp Refills Albuterol Sulfate HFA 108 (90 Base) MCG/AC*18 g 1 Sig: Inhale 2 Puffs by mouth every 6 hours as needed for Wheezing. * Telephone Encounter - Leonela Newman RPh - 04/22/2023 3:17 PM EDT Last prescribed for an acute issue. Forwarding to provider. Please authorize refill if appropriate. Thanks, Leonela Newman Clinical Pharmacist [facility] ([facility]) (Formerly Telepharmacy) [phone] 04/22/2023, 3:17 PM Electronically signed by [facility] at 04/22/2023 3:17 PM EDT documented in this encounter Plan of Treatment Upcoming Encounters Date Type Specialty Care Team Description 04/27/2023 Office Visit Pain Medicine Samuel Simon DO [address] [place] [address] 05/17/2023 Office Visit Family Medicine Rohan Mckenzie DO 200 [place] [address] 05/20/2023 Office Visit Ophthalmology Abilio Hensley DO [address] [facility] [place] [address] 05/25/2023 Hospital Encounter Endoscopy Naldo Lyon MD [address] [place] [address] 05/25/2023 Surgery Endoscopy Naldo Lyon MD [address] [place] [address] COLONOSCOPY FLEXIBLE PROXIMAL DIAGNOSTIC 06/18/2023 Office Visit Cardiology Víctor Mcclain MD [address] [place] [address] 10/06/2023 Office [facility] [place] [address] Scheduled Procedures Name Priority Associated Diagnoses Date/Ti [...] this encounter Medical Devices Implanted Type Area Inspector Integrated Circuits Device Identifier Shelf Expiration Date Model / Serial / Lot Lens 17.5 Sn60wf - [id number] Implanted:Qty : 1 on 06/27/2014 by Rich Brooks MD at OR [facility] Right: Eye [employer] 03/18/2019 SN60WF.17 5 / [id number] / Lens 18.0 Sn60wf - [id number] - [id number] Implanted:Qty : 1 on 07/22/2022 by Abilio Hensley DO at OR [facility] Left: Eye MIRIAN : SURGICAL 11/16/2023 SN60WF.1 8 0 / [id number] / Patch Xenosure [id number] - [id number] Implanted:Qty : 1 on 12/24/2022 by Jean Garcia MD [place] [facility] [place]: Femoral Artery [employer] [id number] 08/15/2028 E0.8P8 / [id number] / [id number] documented as of this encounter Advance Directives [...] and were consensually agreed upon. Care Teams Grain Elevator Worker Relationship Specialty Start Date End Date Rohan Mckenzie DO [address] [place] [address] PCP - General Family Medicine 05/27/16 documented as of this encounter
--- OUTSIDE RECORDS SUMMARY | 2023-06-16 01:43 | External Medical Summary | Summary of Care ---
Author Name Unknown Organization [facility] Address [address] [facility] [place] [address] Phone [phone] Care Team Providers Care Brick Molder Hand Name Role Phone Rohan Mckenzie DO Primary Care Provider [phone] Reason for Visit * Reason Onset Date Comments Test Results 05/18/2023 XR CHEST 2 VIEWS Encounter Details Date Type Department Care Team (Late st Contact Info) Description 05/18/2023 Telephone Family Practice [facility] [place] [address] [facility] [place] [address] Rohan Mckenzie DO [address] [facility] [place] [address] Test Results ( XR CHEST 2 VIEWS) Allergies No known active allergiesdocumented as of this encounter (statuses as of 05/19/2023) Medications Medication Sig Dispensed Refills Start Date [...] as of this encounter (statuses as of 05/19/2023) Active Problems Problem Noted Date Diagnosed Date Aneurysm of aorta 05/17/2023 Old myocardial infarction 05/17/2023 Neuropathy 05/17/2023 Tinea pedis of both feet 11/18/2022 Infrarenal abdominal aortic aneurysm (AAA) witho ut rupture 11/18/2022 Carotid stenosis, non-symptomatic, bilateral 09/2022 PVD (peripheral vascular disease) 10/07/2022 Atherosclerosis of [place] co ronary artery without angina pectoris 09/15/2022 Pulmonary fibrosis 08/07/2021 Lung nodule 05/30/2021 Overview: Repeat CT in 12/07 Abdominal aortic ectasia 02/19/2021 Overview: Recheck 03/10 Coronary artery disease of n ative artery of [place] heart with stable angina pectoris 09/19/2020 Essential (primary) hypertension 09/19/2020 S/P angioplasty with stent 03/07/2020 Coronary artery disease invo lving coronary bypass graft of [place] heart 03/07/2020 Chronic venous stasis dermatitis 02/09/2018 [...] as of this encounter (statuses as of 05/19/2023) Resolved Problems Problem Noted Date Diagnosed Date [...] Update ICD-10 update of inactive term 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 documented as of this encounter (statuses as of 05/19/2023) Immunizations Name Administration Dates Next Due COVID-19 mRNA, LNP-s, No Pre serve, 2-Dose Series (HERCAMOSHOP) 05/27/2021,10/10/2020,09/12/2020 Covid-19, Mrna, Lnp-s, Pf, B ivalent, 30 Mcg, IM, 12 yrs and above (HERCAMOSHOP) 06/23/2022 Pneumococcal Conjugate Vacci ne, 20-valent ([id number]) 07/03/2022 Pneumococcal Polysaccharide PPV23 (Pneumovax) 06/17/2021,04/01/2006 SEASONAL [...] encounter Miscellaneous Notes * Telephone Encounter - Rohan Mckenzie DO [...] unexpected or indeterminate finding on Brandan Morgan ([id number]) and asks that you review the following report. Study Type: XR CHEST 2 VIEWS Date of Study: 05/18/2023 IMPRESSION 1. New cardiomegaly, suspicious for pericardial effusion. 2. New small to moderate right pleural effusion. Please respond to this encounter to acknowledge receipt of this message and take responsibility to ensure this report is reviewed. Thank you, CHE Ch Client Service Rep Diagnostic Medicine [place] documented in this encounter Plan of Treatment Upcoming Encounters Date Type Department Care Team (Latest Contact Info) Description 05/20/2023 11:15 AM EDT Office Visit Ophthalmology, [facility] [address] [facility] [place] [address] Abilio Hensley DO [address] [facility] [place] [address] 06/02/2023 11:00 AM EST PulmDiagnostic Pulmonary Function Lab, [facility] [address] [facility] [place] [address] [place], [address] [place] [address] 06/18/2023 10:30 AM EST Office Visit Cardiology, [facility] [address] [place] [address] Víctor Mcclain MD [address] [place] [address] 06/23/2023 10:20 AM EST Hospital Encounter OR [facility], Operating Room [facility] [address] [place], [place] [address] Samuel Simon, DO [address] [place] [address] 06/23/2023 10:20 AM EST - 06/23/2023 10:40 AM EST Surgery OR [facility], Operating Room [facility] [address] [place] [phone] Samuel Simon, DO [address] [place] [address] L-/S-SPINE PARAVERTEBRAL FACET INJ, 1 LEVEL 08/10/2023 1:00 PM EST Nurse Only Ancillary [facility] [address] [place] [address] Im, Nurse Annual Wellness [facility] [address] [place] [address] 09/21/2023 11:15 AM EST Hospital Encounter ENDO [facility], Endoscopy Room [facility] [address] [place] [phone] Naldo Lyon MD [address] [place] [address] 09/21/2023 11:15 AM EST - 09/21/2023 11:45 AM EST Surgery ENDO [facility], Endoscopy Room [facility] [address] [place] [phone] Naldo Lyon MD [address] [place] [address] COLONOSCOPY FLEXIBLE PROXIMAL DIAGNOSTIC 10/06/2023 1:00 PM EDT Office Visit Podiatry [facility] [address] [place] [address] Leonela Torre, DPM [address] [facility] [place] [address] 12/08/2023 10:00 AM EDT Office Visit Family Practice [facility] [address] [facility] [place] [address] Rohan Mckenzie, DO [address] [facility] [place] [address] Scheduled Procedures Name Priority Associated Diagnoses Date/Ti [...] this encounter Medical Devices Implanted Type Area Road Machine Runner Device Identifier Shelf Expiration Date Model / Serial / Lot Lens 17.5 Sn60wf - [id number] Implanted:Qty : 1 on 06/27/2014 by Rich Brooks MD at OR [facility] Right: Eye [employer] 03/18/2019 SN60WF.17 5 / [id number] / Lens 18.0 Sn60wf - [id number] - [id number] Implanted:Qty : 1 on 07/22/2022 by Abilio Hensley DO at OR [facility] Left: Eye MIRIAN : SURGICAL 11/16/2023 SN60WF.1 8 0 / [id number] / Patch Xenosure [id number] - [id number] Implanted:Qty : 1 on 12/24/2022 by Jean Garcia MD at OR [facility] Left: Femoral Artery [employer] [id number] 08/15/2028 E0.8P8 / [id number] / [id number] documented as of this encounter Advance Directives [...] and were consensually agreed upon. Care Teams Brick Molder Hand Relationship Specialty Start Date End Date Rohan Mckenzie DO [address] [place] [address] PCP - General Family Medicine 05/27/16 documented as of this encounter
--- OUTSIDE RECORDS SUMMARY | 2023-06-16 01:43 | External Medical Summary | Summary of Care ---
Author Name Unknown Organization [facility] Address [address] [facility] [place] [address] Phone [phone] Care Team Providers Care Coater Operator Insulation Board Name Role Phone Rohan Mckenzie DO Primary Care Provider [phone] Reason for Visit * Reason Comments eRx-Medication Refill Encounter Details Date Type Department Care Team Description 04/21/2023 Refill Family Practice [facility] [place] [address] [facility] [place] [address] Stefanie Sinclair PA-C [address] [facility] [place] [address] Allergies No known active allergiesdocumented as of [...] WEEK DIRECTED 24 Tablet 6 03/18/2022 Active Albuterol Sulfate HFA 108 (90 Base) [...] EVERY DAY 90 Tablet 3 04/15/2023 Active documented as of this encounter (statuses as of 04/22/2023) Active Problems Problem Noted Date Tinea pedis of both feet 11/18/2022 Infrarenal abdominal aortic aneurysm (AA A) without rupture 11/18/2022 Carotid stenosis, non-symptomatic, bilat eral 11/18/2022 PVD (peripheral vascular disease) 2022 Atherosclerosis of nikol[place] coronary arter y without angina pectoris 09/15/2022 Lung fibrosis 08/07/2021 Lung nodule 05/30/2021 Overview: Repeat CT in 12/07 Abdominal aortic ectasia 02/19/2021 Overview: Recheck 03/10 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 documented as of this encounter (statuses as of 04/22/2023) Immunizations Name Administration Dates Next Due COVID-19 mRNA, LNP-s, No Pre serve, 2-Dose Series (Eventifier) 05/27/2021,10/10/2020,09/12/2020 Covid-19, Mrna, Lnp-s, Pf, B ivalent, 30 Mcg, IM, 12 yrs and above (Pfizer) 06/23/2022 Pneumococcal Conjugate Vacci ne, 20-valent ([id number]) 07/03/2022 Pneumococcal Polysaccharide PPV23 (Pneumovax) 06/17/2021,04/01/2006 SEASONAL [...] encounter Miscellaneous Notes * Telephone Encounter - Becki Newman RPh - 04/22/2023 2:54 PM EDTRefused Prescriptions: Disp Refills Albuterol Sulfate HFA 108 (90 Base) MCG/AC* 1 Sig: TAKE 2 PUFFSBY MOUTH EVERY 6 HOURS NEEDED FOR WHEEZERefused By: BECKI NEWMAN for Refusal: Duplicate Request documented in this encounter Plan of Treatment Upcoming Encounters Date Type Specialty Care Team Description 04/27/2023 Office Visit Pain Medicine Samuel Simon DO [address] [place] [address] 05/17/2023 Office Visit Family Medicine Rohan Mckenzie DO 200 [facility] [place] [phone] 05/20/2023 Office Visit Ophthalmology [facility]ilio Hensley DO [facility] [phone] 05/25/2023 Hospital Encounter Endoscopy Naldo Lyon MD [address] [place] [address] 05/25/2023 Surgery Endoscopy Naldo Lyon MD [address] [place] [address] COLONOSCOPY FLEXIBLE PROXIMAL DIAGNOSTIC 06/18/2023 Office Visit Cardiology Víctor Mcclain MD [address] [place] [address] 10/06/2023 Office Visit Podiatry Becki Torre, ASHOK [address] [place] [address] Scheduled Procedures Name Priority Associated Diagnoses Date/Ti [...] this encounter Medical Devices Implanted Type Area Gas Refrigerator Servicer Device Identifier Shelf Expiration Date Model / Serial / Lot Lens 17.5 Sn60wf - [id number] Implanted:Qty : 1 on 06/27/2014 by Rich Brooks MD at OR [facility] Right: Eye [employer] 03/18/2019 SN60WF.17 5 / [id number] / Lens 18.0 Sn60wf - [id number] - [id number] Implanted:Qty : 1 on 07/22/2022 by Abilio Hensley DO at OR [facility] Left: Eye [employer] : SURGICAL 11/16/2023 SN60WF.1 8 0 / [id number] / Patch Xenosure [id number] - [id number] Implanted:Qty : 1 on 12/24/2022 by Jean Garcia MD at [place] [facility] Left: Femoral Artery [employer] [id number] 08/15/2028 E0.8P8 / [id number] / [id number] documented as of this encounter Advance Directives [...] and were consensually agreed upon. Care Teams Coater Operator Insulation Board Relationship Specialty Start Date End Date Rohan Mckenzie, DO [address] [place] [address] PCP - General Family Medicine 05/27/16 documented as of this encounter
--- OUTSIDE RECORDS SUMMARY | 2023-06-16 01:43 | External Medical Summary ---
Author Name Unknown Address Unknown Organization K01:[facility] [place] [address] [place] [address] Laboratory Report Ordering Provider Test Date Status RITA PETERSEN 05/17/2023 13:37:45 Final Exclude Heart Failure: <300 pg/mL
Diagnose Heart Failure:
Age <50 yr: >450 pg/mL
50-75 yr: >900 pg/mL
>75 yr: >1800 pg/mL
GFR is 30-59 mL/min: >1200 pg/mL or Age- adjusted values
GFR <30 mL/min: do not use, not reliable

Prognostic threshold: 1000 pg/mL Observation Date Value Abnormality Reference (Units ) Status BNP, Pro-hormone 05/17/2023 13:37:45 4123 Above high no rmal <300 (pg/mL) Final Performing Location [facility] [place] [facility] [address] [place] [address]
--- OUTSIDE RECORDS SUMMARY | 2023-06-16 01:43 | External Medical Summary | Summary of Care ---
Author Name Unknown Organization [facility] Address [address] [facility] [place] [address] Phone [phone] Care Team Providers Care Construction Project Engineer Name Role Phone Rohan Mckenzie DO Primary Care Provider [phone] Reason for Visit * Reason Comments eRx-Medication Refill Encounter Details Date Type Department Care Team Description 04/14/2023 Refill Cardiology, [facility] [address] [facility] [place] [address] Rohan Mckenzie DO [address] [place] [address] Essential (primary) hypertension* Allergies No known active allergiesdocumented as of this encounter (statuses as of 04/15/2023) Medications Medication Sig Dispensed Refills Start Date [...] WEEK DIRECTED 24 Tablet 6 2 Active Albuterol Sulfate HFA 108 (90 [...] EVERY DAY 90 Tablet 1 3 Active Losartan Potassium 100 MG Oral Tablet (Cozaar)Indication s:Essential (primary) hypertension TAKE 1 TABLET BY MOUTH EVERY DAY 90 Tablet 3 3 Active Losartan Potassium 100 MG Oral Tablet (Cozaar) TAKE 1 TABLET BY MOUTH EVERY DAY 90 Tablet 3 2 04/15/20 23 Discontinued documented as of this encounter (statuses as of 04/15/2023) Active Problems Problem Noted Date Tinea pedis of both feet 11/18/2022 Infrarenal abdominal aortic aneurysm (AA A) without rupture 11/18/2022 Carotid stenosis, non-symptomatic, bilat eral 11/18/2022 PVD (peripheral vascular disease) 2022 Atherosclerosis of [place] coronary arter y without angina pectoris 09/15/2022 Lung fibrosis 08/07/2021 Lung nodule 05/30/2021 Overview: Repeat CT in 12/07 Abdominal aortic ectasia 02/19/2021 Overview: Recheck 03/10 Coronary artery disease of n ative artery of cur[place] heart with stable angina pectoris 09/19/2020 Essential (primary) hypertension 021 S/P angioplasty with stent 03/07/2020 Coronary artery disease involving huddleston ry bypass graft of [place] heart 03/07/2020 Chronic venous stasis dermatitis 018 [...] as of this encounter (statuses as of 04/15/2023) Resolved Problems Problem Noted Date Resolved Date [...] Update ICD-10 update of inactive term 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. documented as of this encounter (statuses as of 04/15/2023) Immunizations Name Administration Dates Next Due COVID-19 mRNA, LNP-s, No Pre serve, 2-Dose Series (Pfizer) 05/27/2021,10/10/2020,09/12/2020 Covid-19, Mrna, Lnp-s, Pf, B ivalent, 30 Mcg, IM, 12 yrs and above (Pfizer) 06/23/2022 Pneumococcal Conjugate Vacci ne, 20-valent ([id number]) 07/03/2022 Pneumococcal Polysaccharide PPV23 (Pneumovax) 06/17/2021,04/01/2006 Seasonal [...] encounter Miscellaneous Notes * Telephone Encounter - CHETNA Muller - 04/15/2023 8:18 AM EDTPending Prescriptions: Disp Refills Losartan Potassium 100 MG Oral Tablet (Coz*90 Tab*3 Sig: TAKE 1 TABLET BY MOUTH EVERY DAY * Telephone Encounter - CHETNA Muller - 04/15/2023 8:17 AM EDT Scheduling -- please contact pt for follow up. * Telephone Encounter - CHETNA Muller - 04/15/2023 8:17 AM EDT Did you pend patient's preferred pharmacy and medication before forwarding?yes [facility]: [id number] [address] [place] [address] Pending Prescriptions: Disp Refills Losartan Potassium 100 MG Oral Tablet (Co*90 Tab*3 Sig: TAKE 1 TABLET BY MOUTH EVERY DAY Last Visit: 06/17/2022 (in office), Visit date not found (telemedicine) Next Visit: Visit date not found If no future appointments scheduled, and last appointment is greater than a year ago, please schedule patient for a follow-up appointment Last date the medication was ordered: 04-24-2022 Is this request for a controlled substance?No Urine Drug Screen:No results found for this or any previous visit. Patient Phone Numbers Labs: Lab Results Component Value Date/Time CREAT 0.9 12/25/2022 06:06 AM CREAT 1.1 03/11/2020 02:05 PM POTASSIUM 4.4 12/25/2022 06:06 AM POTASSIUM 4.6 03/11/2020 02:05 PM TSH 3.38 07/15/2017 10:17 AM LDLCALC 115 10/23/2022 09:04 AM LDLCALC UNINTERPRETABLE RESULT 07/27/2018 09:17 AM LDLDIRECT 102 08/15/2019 08:15 AM LDLDIRECT 89 07/31/2011 07:23 AM ALT 34 10/23/2022 09:02 AM ALT 46 08/15/2019 08:15 AM HGBA1C 5.4 12/24/2022 11:36 AM HGBA1C 5.4 07/06/2018 02:04 PM documented in this encounter Plan of Treatment Upcoming Encounters Date Type Specialty Care Team Description 04/27/2023 Office Visit Pain Medicine Samuel Simon, DO [address] [place] [address] 05/17/2023 Office Visit Family Medicine Rohan Mckenzie, DO [address] [place] [address] 05/20/2023 Office Visit Ophthalmology Abilio Hensley, DO [facility] [place] [address] 05/25/2023 Hospital Encounter Endoscopy Naldo Lyon MD [address] [place] [address] 05/25/2023 Surgery Endoscopy Naldo Lyon MD [address] [place] [address] COLONOSCOPY FLEXIBLE PROXIMAL DIAGNOSTIC 10/06/2023 Office Visit Podiatry Leonela Torre, DPHilario [address] [facility] [place] [address] Scheduled Procedures Name Priority Associated Diagnoses Date/Ti [...] this encounter Medical Devices Implanted Type Area Loader Helper Device Identifier Shelf Expiration Date Model / Serial / Lot Lens 17.5 Sn60wf - [id number] Implanted:Qty : 1 on 06/27/2014 by Rich Brooks MD at OR [facility] Right: Eye [employer] 03/18/2019 SN60WF.17 5 / [id number] / Lens 18.0 Sn60wf - [id number] - [id number] Implanted:Qty : 1 on 07/22/2022 by Abilio Hensley DO at OR [facility] Left: Eye MIRIAN : SURGICAL 11/16/2023 SN60WF.1 8 0 / [id number] / Patch Xenosure [id number] - [id number] Implanted:Qty : 1 on 12/24/2022 by Jean Garcia MD at OR [facility] Left: Femoral Artery [employer] [id number] 08/15/2028 E0.8P8 / [id number] / [id number] documented as of this encounter Visit Diagnoses Diagnosis Essential (primary) hypertension- Primary Unspecified essential hypertension History of colon polyps Personal history of [...] and were consensually agreed upon. Care Teams Construction Project Engineer Relationship Specialty Start Date End Date Rohan Mckenzie, DO 200 [place] [address] PCP - General Family Medicine 05/27/16 documented as of this encounter
--- OUTSIDE RECORDS SUMMARY | 2023-06-16 01:43 | External Medical Summary | Summary of Care ---
Author Name Unknown Organization [facility] Address [address] [address] Phone [phone] Care Team Providers Care Shactor Name Role Phone Rohan Mckenzie DO Primary Care Provider [phone] Reason for Visit * Reason Comments Follow Up Foot check Encounter Details Date Type Department Care Team Description 04/07/2023 Office Visit Podiatry [facility] [address] [facility] [place] [address] Leonela Torre, DPHilario [address] [facility] [address] Peripheral arterial disease (HCC)*; Neuropathy; Onychomycosis; Tinea pedis of both feet Allergies No known active allergiesdocumented as of [...] PVD (peripheral vascular disease) 2022 Atherosclerosis of [place] coronary arter y without angina pectoris 09/15/2022 Lung fibrosis 08/07/2021 Lung nodule 05/30/2021 Overview: Repeat CT in 12/07 Abdominal aortic ectasia 02/19/2021 Overview: Recheck 03/10 Coronary artery disease of n ative artery of [place] heart with stable angina pectoris 09/19/2020 Essential (primary) hypertension 021 S/P angioplasty with stent 03/07/2020 Coronary artery disease involving [place] ry bypass graft of [place] heart 03/07/2020 Chronic venous stasis dermatitis 018 [...] Update ICD-10 update of inactive term 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 documented as of this encounter (statuses as of 04/07/2023) Immunizations Name Administration Dates Next Due COVID-19 mRNA, LNP-s, No Pre serve, 2-Dose Series ([employer]) 05/27/2021,10/10/2020,09/12/2020 Covid-19, Mrna, Lnp-s, Pf, B ivalent, 30 Mcg, IM, 12 yrs and above (Pfizer) 06/23/2022 Pneumococcal Conjugate Vacci ne, 20-valent ([id number]) 07/03/2022 Pneumococcal Polysaccharide PPV23 (Pneumovax) 06/17/2021,04/01/2006 Seasonal [...] as of this encounter Progress Notes * Leonela Torre, DPM - 04/07/2023 1:11 PM EDT Podiatry Established Note [facility], [place], [facility] Name: Brandan Morgan : 1955 Date: 04/07/2023 REASON FOR VISIT: recheck of feet, doing better SUBJECTIVE: This patient is a 67 year old male who presents today. He reports using topical cream twice weekly to maintain tinea pedis. He has nail fungus and at times his puts this medication on the nails. He denies callus formation. 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 He did have vascular intervention on 12/24/22 and reports doing well since. He continues to have hip and back pain [facility]. 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, [id number] Other specified forms of chronic ischemic heart disease age 41 12/23/1996 angioplasty stent, inferior posterior VT Personal history of colonic polyps 03/28/2009 adenoma repeat in 1 yr, history of villous adenoma 2007 Personal history of colonic polyps 03/28/2010 polyps--hyperplastic tissue repeat in 2 yrs Personal history of colonic polyps 01/06/2013 normal no polyps, benign mucosa post inferior wall VT 12/23/1996 ALLERGIES: Review of patient's allergies indicates: No Known Allergies REVIEW OF SYSTEMS: CONSTITUTIONAL: No fever FOCUSED PODIATRIC EXAM: Vascular: Pedal pulses palpable including dorsalis pedis and posterior tibial artery at 2/4 bilaterally. Capillary refill time is within normal limits to all toes. Neurologic: Sensation (light touch) intact to the bilateral lower extremities. Musculoskeletal: No pain with palpation of the bilateral feet. Dermatological: Fungal nails noted. Skin appears within normal limits without fissures, callus, or rash. DIAGNOSTIC STUDIES: No new ASSESSMENT: 1. Peripheral arterial disease (HCC) 2. Neuropathy 3. Onychomycosis 4. Tinea pedis of both feet PLAN: Brandan is doing well. Vascular intervention and topical creams have helped his foot symptoms. He prefers to make a 6 month follow up for now, but knows to contact this office with any questions or concerns. Leonela Torre DPM documented in this encounter Nursing Notes * Mary Jane Silva LPN - 04/07/2023 12:58 PM EDT Pt presents for 4 month bilateral foot check, no pain in feet. documented in this encounter Plan of Treatment Upcoming Encounters Date Type Specialty Care Team Description 04/07/2023 Immunization Ancillary [facility], Flu Shot [facility] [address] [id number] Need for prophylactic vaccination and inoculation against influenza* 04/19/2023 Office Visit Cardiology Víctor Mcclain MD [address] [id number] 05/17/2023 Office Visit Family Medicine Rohan Mckenzie, DO [address] [place] [address] 05/20/2023 Office Visit Ophthalmology Abilio Hensley, [address] [facility] [place] [address] 05/25/2023 Hospital Encounter Endoscopy Naldo Lyon MD [address] [place] [address] 05/25/2023 Surgery Endoscopy Naldo Lyon MD [address] [place] [address] COLONOSCOPY FLEXIBLE PROXIMAL DIAGNOSTIC 10/06/2023 Office Visit Podiatry Leonela Torre, DPM [address] [facility] [place] [address] Scheduled Procedures Name Priority Associated Diagnoses Date/Ti me COLONOSCOPY FLEXIBLE PROXIMAL DIAGNOSTIC Recall History of colon polyps 05/25/2023 11:45 AM EST Health Maintenance Due Date Last Done Comments Depression Screening 02/08/2020 02/07/2019 COLONOSCOPY-EVERY 5 YRS AGES 18-100 01/12/2023 01/12/2018, 01/12/2018, 01/17/2013, Additional history exists GFR 12/26/2023 12/25/2022, /02/2023, 11/18/2022, Additional history exists Albumin/Creatinine Ratio 10/23/2025 [...] this encounter Medical Devices Implanted Type Area Welder Shielded Metal Arc Device Identifier Shelf Expiration Date Model / Serial / Lot Lens 17.5 Sn60wf - [id number] Implanted:Qty : 1 on 06/27/2014 by Rich Brooks MD at OR [facility] Right: Eye [employer] 03/18/2019 SN60WF.17 5 / [id number] / Lens 18.0 Sn60wf - [id number] - [id number] Implanted:Qty : 1 on 07/22/2022 by Abilio Hensley DO at OR [facility] Left: Eye MIRIAN : SURGICAL 11/16/2023 SN60WF.1 8 0 / [id number] / Patch Xen[employer] [id number] - [id number] Implanted:Qty : 1 on 12/24/2022 by Jean Garcia MD [place] [facility] Left: Femoral Artery [employer] [id number] 08/15/2028 E0.8P8 / [id number] / [id number] documented as of this encounter Visit Diagnoses Diagnosis Peripheral arterial disease (HCC)- Primary Peripheral vascular disease, unspecified Neuropathy Mononeuritis of unspecified site Onychomycosis Dermatophytosis of nail Tinea pedis of both feet Need for prophylactic vaccination and inoculation against [...] and were consensually agreed upon. Care Teams Shactor Relationship Specialty Start Date End Date Rohan Mckenzie, DO [address] [place] [address] PCP - General Family Medicine 05/27/16 documented as of this encounter
--- OUTSIDE RECORDS SUMMARY | 2023-06-16 01:43 | External Medical Summary | Summary of Care ---
Author Name Unknown Organization [facility] Address [address] [address] Phone [phone] Care Team Providers Care Cruise Agent Name Role Phone Rohan Mckenzie DO Primary Care Provider [phone] Reason for Visit * Reason Comments Acute 2 week hx of cough, chest congestion, coughing up white mucous. No fever, No sore throat. No n/v or diarrhea. No home Covid test. Encounter Details Date Type Department Care Team Description 05/06/2023 Office Visit Family Practice [facility] [address] [facility] [place] [address] Verna Sprague MD [address] [facility] [place] [address] Bronchitis, complicated*; Dyspnea on exertion; Shortness of breath Allergies No known active allergiesdocumented as of this encounter (statuses as of 05/06/2023) Medications Medication Sig Dispensed Refills Start Date [...] Wheezing. 18 g 1 04/22/2023 Active predniSONE 10 MG Oral Tablet (Deltasone)Indicati ons:Bronchitis, complicated Take 5 tabs for 2 days, 4 tabs for 2 days, 3 tabs for 2 days, 2 tabs for 2 days 1 tab for 2 days 30 Tablet 0 05/06/2023 Active Azithromycin 250 MG Oral Tablet (Zithromax)Indicati ons:Bronchitis, complicated Take 2 tabs by mouth on the first day, then 1 tab daily on days two through five 6 Tablet 0 05/06/2023 3 Active Hospital, Clinic, or Other Facility Administered Medication Ordered Dose Route Frequency Start Date End Date Status Albuterol Sulfate (Proventil) (2.5 MG/3ML) 0.083% inhalation solution 2.5 mgIndications:Dyspnea on exertion 2.5 mg NEBULIZER ONCE PRN 05/06/2023 05/05/2024 Active documented as of this encounter (statuses as of 05/06/2023) Active Problems Problem Noted Date Tinea pedis of both feet 11/18/2022 Infrarenal abdominal aortic aneurysm (AA A) without rupture 11/18/2022 Carotid stenosis, non-symptomatic, bilat eral 11/18/2022 PVD (peripheral vascular disease) 2022 Atherosclerosis of [place] coronary arter y without angina pectoris 09/15/2022 Pulmonary fibrosis 08/07/2021 Lung nodule 05/30/2021 Overview: Repeat CT in 12/07 Abdominal aortic ectasia 02/19/2021 Overview: Recheck 03/10 Coronary artery disease of n ative artery of [place] heart with stable angina pectoris 09/19/2020 Essential (primary) hypertension 021 S/P angioplasty with stent 03/07/2020 Coronary artery disease involving huddleston ry bypass graft of [place] heart 03/07/2020 Chronic venous stasis dermatitis 018 [...] as of this encounter (statuses as of 05/06/2023) Resolved Problems Problem Noted Date Resolved Date [...] wall [place], angioplasty and stent [place] [facility] [place] documented as of this encounter (statuses as of 05/06/2023) Immunizations Name Administration Dates Next Due COVID-19 mRNA, LNP-s, No Pre serve, 2-Dose Series (Saranas) 05/27/2021,10/10/2020,09/12/2020 Covid-19, Mrna, Lnp-s, Pf, B ivalent, 30 Mcg, IM, 12 yrs and above (Saranas) 06/23/2022 Pneumococcal Conjugate Vacci ne, 20-valent ([id number]) 07/03/2022 Pneumococcal Polysaccharide PPV23 (Pneumovax) 06/17/2021,04/01/2006 SEASONAL [...] 20 Q uit: 08/07/2015 Smokeless Tobacco: Never Tobacco Cessation:Counseling Given: Not Answered Alcohol Use Standard Drinks/Week Comments Yes 0 [...] Sign Reading Time Taken Comments Blood Pressure 130/62 05/06/2023 11:03 AM EDT Pulse 73 05/06/2023 11:03 AM EDT Temperature 36.6 C (97.9 F) 05/06/2023 1 1:03 AM EDT Respiratory Rate - - Oxygen Saturation 94% 05/06/2023 11: 03 AM EDT Inhaled Oxygen Concentration - - Weight 117.8 kg (259 lb 12.8 oz) 2022 11:03 AM EDT Height - - Body Mass Index 33.36 12/24/2022 6:08 AM EDT documented in this encounter Functional Status [...] as of this encounter Progress Notes * Verna Sprague MD - 05/06/2023 11:31 AM EDT Images from the original note were not included. History of Present Illness Brandan Morgan is a 67 year old male that presents for Acute (2 week hx of cough, chest congestion, coughing up white mucous. No fever, No sore throat. No n/v or diarrhea. No home Covid test.) Cough, congestion, SOB x2 weeks. Stable. Worse in AM. Flovent 2x/day. Not using albuterol. No fever/chills, no sore throat. Hx PNA in past. Walking in to office had to stop to catch breath. This is unusual. In past year has had a few episodes like this where oral prednisone and antibiotics have helped. Has never been told he has pulmonary fibrosis. Doesn't recall having PFTs. Chest CT show signs of chronic bronchial thickening but not interstitial changes. COVID two years ago. C/b PNA. In hospital 5 nights. Didn't feel short of breath. Was just tired. Hasn't had shortness of breath since stents placed three years ago. 35-40 pack year history of cigarettes. Quit 9yrs ago. No cannabis, no alcohol. 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 Follows with Dr Mcclain. medication and allergy list reviewed Past medical hsitory and problem list reviewed Physical Exam Vitals: 05/06/23 1103 Temp: 36.6 C (97.9 F) Pulse: 73 SpO2: 94% BP: 130/62 Physical Exam Vitals and nursing note reviewed. Constitutional: General: He is not in acute distress. Appearance: Normal appearance. He is not ill-appearing. HENT: Head: Normocephalic and atraumatic. Right Ear: Tympanic membrane, ear canal and external ear normal. There is no impacted cerumen. Left Ear: Tympanic membrane, ear canal and external ear normal. There is no impacted cerumen. Nose: Nose normal. Mouth/Throat: Mouth: Mucous membranes are moist. Pharynx: Oropharynx is clear. No oropharyngeal exudate. Eyes: General: No scleral icterus. Right eye: No discharge. Left eye: No discharge. Conjunctiva/sclera: Conjunctivae normal. Pupils: Pupils are equal, round, and reactive to light. Neck: Thyroid: No thyroid mass, thyromegaly or thyroid tenderness. Cardiovascular: Rate and Rhythm: Normal rate and regular rhythm. Heart sounds: No murmur heard. Pulmonary: Effort: Pulmonary effort is normal. No respiratory distress. Breath sounds: Normal breath sounds. No wheezing or rhonchi. Comments: Several productive coughing fits Musculoskeletal: Right lower leg: No edema. Left lower leg: No edema. Lymphadenopathy: Cervical: No cervical adenopathy. Skin: General: Skin is warm and dry. Neurological: Mental Status: He is alert. I have reviewed the following results: BMP Assessment and Plan Bronchitis, complicated ? COPD picture with acute exacerbation? EKG reviewed with Dr Aguillon (cardiology) did not feel significant change compared to prior. - predniSONE 10 MG Oral Tablet (Deltasone); Take 5 tabs for 2 days, 4 tabs for 2 days, 3 tabs for 2days, 2 tabs for 2 days 1 tab for 2 days - Azithromycin 250 MG Oral Tablet (Zithromax); Take 2 tabs by mouth on the first day, then 1 tab daily on days two through five Dyspnea on exertion Will get pulmonary workup started. Aware will do once he's no longer sick. - SPIROMETRY B/A BRONCHODILATOR; Future - DIFFUSION CAPACITY (DLCO); Future - LUNG VOLUMES (PLETHYSMOGRAPHY); Future Shortness of breath - EKG; Future - EKG Wrap-Up Time: I spent a total of 30-39 minutes (exact time 35 mins) on the date of service in preparation, delivery, and documentation of the care provided to Brandna Morgan excluding any time spent in the performance of separately billed services. * Honorio Nunez, Medical Student - 05/06/2023 11:30 AM EDT Unless the attending has added an attestation supporting use of this note to document a billable service, the signature of the Licensed Professional on this note only acknowledges the presence of thestudent's note within the patient record and the Licensed Professional's note should be referred tofor clinical information and recommendations. Subjective Brandan Morgan is a 67 year old male that presents for Acute (2 week hx of cough, chest congestion, coughing up white mucous. No fever, No sore throat. No n/v or diarrhea. No home Covid test.) Pt endorses a chronic course of coughing up sputum that has worsened for the past two weeks. The congestion and cough are worse in the mornings and then improve after a few hours. Pt currently takingFlovent 2x daily which has provided some relief. He also has an albuterol rescue inhaler, which he is currently not using. He denies any fever, chills, chest pain, ear pain, sore throat, nausea or vomiting. Endorses SOB on exertion. Pt also has a significant cardiac history including ischemic heart disease w/ bypass graft and peripheral vascular disease, which he is currently being seen for by cardiology. Wt Readings from Last 3 Encounters: 05/06/23 117.8 kg (259 lb 12.8 oz) 01/20/23 116 kg (255 lb 11.2 oz) 01/06/23 117.3 kg (258 lb 9.6 oz) Patient Active Problem List Diagnosis Code CHR ISCHEMIC HRT DIS NOS I25.9 hypercholesterol E78.1 No advance directive on file Z78.9 History of colonic polyps Z86.010 Gouty arthropathy M10.9 Dyslipidemia, goal LDL below 100 E78.5 Cataract extraction status Z98.49 Chronic venous stasis dermatitis I87.2 S/P angioplasty with stent Z95.820 Coronary artery disease involving coronary bypass graft of [place] heart I25.810 Coronary artery disease of [place] artery of [place] heart with stable angina pectoris ([facility]) I25.118 Essential (primary) hypertension I10 Abdominal aortic ectasia ([facility]) I77.811 Lung nodule R91.1 Pulmonary fibrosis ([facility]) J84.10 Atherosclerosis of [place] coronary artery without angina pectoris I25.10 PVD (peripheral vascular disease) ([facility]) I73.9 Tinea pedis of both feet B35.3 Infrarenal abdominal aortic aneurysm (AAA) without rupture ([facility]) I71.43 Carotid stenosis, non-symptomatic, bilateral I65.23 Current Outpatient Medications Medication Instructions Albuterol Sulfate HFA 108 (90 Base) MCG/ACT Inhalation Aerosol Solution 2 Puffs, Inhalation, Q6H PRN Allopurinol 300 MG Oral Tablet (Zyloprim) TAKE 1 TABLET BY MOUTH EVERY DAY Aspirin Low Dose 81 MG Oral Tablet Delayed Release (aspirin enteric coated) TAKE 1 TABLET BY MOUTH EVERY DAY IN THE MORNING B Complex Vitamins (B COMPLEX 50) TABS Oral, Daily(AM) Econazole Nitrate 1 % External Cream (Spectazole) Apply to feet (on nails and in between toes) 2x weekly as maintenance for tinea pedis Ezetimibe 10 MG Oral Tablet (Zetia) TAKE 1 TABLET BY MOUTH EVERY DAY IN THE MORNING Furosemide 20 MG Oral Tablet (Lasix) TAKE 1-2 TABS PER WEEK DIRECTED Losartan Potassium 100 MG Oral Tablet (Cozaar) TAKE 1 TABLET BY MOUTH EVERY DAY Metoprolol Succinate ER 50 MG Oral Tablet Extended Release 24 Hour (toPROL XL) TAKE 1/2 TABLET BY MOUTH EVERY DAY Misc. Devices MISC Custom molded extra depth shoes with accommodative inserts - Offloading of [id number] metatarsal head
Dx: neuropathic ulceration right foot Nitroglycerin (NITROSTAT) 0.4 mg, Sublingual, Q5 MIN PRN Simvastatin 40 MG Oral Tablet (Zocor) TAKE 1 TABLET BY MOUTH EVERY DAY Vitamin C (ASCORBIC ACID) 500 mg, Oral, Daily(AM) Objective Body mass index is 33.36 kg/m. BP Readings from Last 3 Encounters: 05/06/23 130/62 01/20/23 140/68 01/06/23 142/70 Wt Readings from Last 3 Encounters: 05/06/23 117.8 kg (259 lb 12.8 oz) 01/20/23 116 kg (255 lb 11.2 oz) 01/06/23 117.3 kg (258 lb 9.6 oz) Physical exam BP 130/62 (BP Site: Left Arm, BP Position: Sitting, BP Cuff Size: Regular) | Pulse 73 | Temp 36.6 C (97.9 F) (Tympanic) | Wt 117.8 kg (259 lb 12.8 oz) | SpO2 94% | BMI 33.36 kg/m | BSA 2.48 m Nursing note and vitals reviewed. Constitutional: Patient appears well-developed and well-nourished.Is in no acute distress and is seated comfortably. HENT: Head: Normocephalic and atraumatic. Ears: External ears normal b/l. No erythema of ear canal Eyes: Conjunctivae are normal. No discharge in both eyes. Neck: Normal range of motion. Neck supple. No gross thyromegaly present. Cardiovascular: S1S2+ Regular rate and rhythm; Exam reveals no friction rub. No murmur heard. Intact distal pulses. No pedal edema. Pulmonary/Chest: Effort normal and breath sounds decreased bilaterally. No respiratory distress. Pthas no wheezes or rales. Lymphadenopathy: No clinically significant adenopathy. Neurological: Patient is awake and alert. Skin: Skin is warm and not diaphoretic. Psychiatric: Normal mood and affect. Behavior is normal. Assessment and plan Brandan was seen today for acute. Diagnoses and all orders for this visit: Shortness of breath - EKG; Future - EKG Bronchitis, complicated - predniSONE 10 MG Oral Tablet (Deltasone); Take 5 tabs for 2 days, 4 tabs for 2 days, 3 tabs for 2days, 2 tabs for 2 days 1 tab for 2 days - Azithromycin 250 MG Oral Tablet (Zithromax); Take 2 tabs by mouth on the first day, then 1 tab daily on days two through five Dyspnea on exertion - SPIROMETRY B/A BRONCHODILATOR; Future - Albuterol Sulfate (Proventil) (2.5 MG/3ML) 0.083% inhalation solution 2.5 mg - DIFFUSION CAPACITY (DLCO); Future - LUNG VOLUMES (PLETHYSMOGRAPHY); Future Office EKG showed LBBB and PVCs, which are consistent with previous EKGs. 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 He is currently being followed up with yearly Chest CT's for a pulmonary nodule and show some bronchial wall thickening. Pt has not had PFTs done in the past and would benefit from better classification and measurement of severity of his lung condition. Current symptoms suggestive of acute bronchitis. Pt agreeable to the treatment plan outlined above. All questions were answered. Patient was encouraged to call us with any further questions or concerns. Honorio Nunez, Medical Student documented in this encounter Procedure Notes * Wil Aguillon DO - 05/06/2023 10:57 AM EDTAssociated Order(s): EKG REASON FOR STUDY: SOB CONCLUSIONS: Sinus rhythm with frequent Premature ventricular complexes Left bundle branch block Abnormal ECG When compared with ECG of 18-NOV-2022 10:05, Premature ventricular complexes are now Present T wave inversion no longer evident in Inferior leads Ventricular Rate: 67 Atrial Rate: 71 NV Interval: 118 QRS Duration: 146 QT/QTc: 438/462 ms P-R-T [place]: 40 : -1 : 119 degrees documented in this encounter Plan of Treatment Upcoming Encounters Date Type Specialty Care Team Description 05/17/2023 Office Visit Family Medicine Rohan Mckenzie DO [address] [place] [address] 05/20/2023 Office Visit Ophthalmology [facility] Hens[facility] DO [address] [facility] [place] [address] 05/25/2023 Hospital Encounter Endoscopy Naldo Lyon MD [address] [place] [address] 05/25/2023 Surgery Endoscopy Naldo Lyon MD [address] [place] [address] COLONOSCOPY FLEXIBLE PROXIMAL DIAGNOSTIC 06/02/2023 PulmDiagnostic Pulmonary Function [place], [facility] [address] [place] [address] 06/18/2023 Office Visit Cardiology Víctor Mcclain MD [address] [place] [address] 06/23/2023 Hospital Encounter Surgery Samuel Simon DO [address] [place] [address] 06/23/2023 Surgery Surgery Cousins, Samuel Aguilar, DO [address] [place] [address] L-/S-SPINE PARAVERTEBRAL FACET INJ, 1 LEVEL 10/06/2023 Office Visit Podiatry Leonela Torre, DPM [address] [place] [address] Scheduled Orders Name Type Priority Associated Diagnoses Orde r Schedule SPIROMETRY B/A BRONCHODILATOR Procedures Routine Dyspnea on exertion Expected: 05/06/2023, Expires: 06/06/2024 DIFFUSION CAPACITY (DLCO) Procedures Routine Dyspnea on exertion Expected: 05/06/2023 (Approximate), Expires: 05/06/2024 LUNG VOLUMES (PLETHYSMOGRAPHY) Procedures Routine Dyspnea on exertion Expected: 05/06/2023 (Approximate), Expires: 05/06/2024 Scheduled Procedures Name Priority Associated Diagnoses Date/Ti me COLONOSCOPY FLEXIBLE PROXIMAL DIAGNOSTIC Recall History of colon polyps 05/25/2023 11:45 AM EST L-/S-SPINE PARAVERTEBRAL FACET INJ, 1 LEVEL Spondylosis of lumbar region without myelopathy or radiculopathy 06/23/2023 10:20 AM EST L-/S-SPINE PARAVERTEBRAL FACET INJ, 2 LEVELS Spondylosis of lumbar region without myelopathy or radiculopathy 06/23/2023 10:20 AM EST Health Maintenance Due Date Last [...] this encounter Medical Devices Implanted Type Area Associate Broker Device Identifier Shelf Expiration Date Model / Serial / Lot Lens 17.5 Sn60wf - [id number] Implanted:Qty : 1 on 06/27/2014 by Rich Brooks MD at OR [facility] Right: Eye [employer] 03/18/2019 SN60WF.17 5 / [id number] / Lens 18.0 Sn60wf - [id number] - [id number] Implanted:Qty : 1 on 07/22/2022 by Abilio Hensley DO at OR [facility] Left: Eye MIRIAN : SURGICAL 11/16/2023 SN60WF.1 8 0 / [id number] / Patch Xenosure [id number] - [id number] Implanted:Qty : 1 on 12/24/2022 by Jean Garcia MD [place] [facility] Left: Femoral Artery [employer] [id number] 08/15/2028 E0.8P8 / [id number] / [id number] documented as of this encounter Procedures Procedure Name Priority Date/Time Associated Diagnosis Comments NV ECG ROUTINE ECG W/LEAST 12 LDS I&R ONLY Routine 05/06/2023 10:57 AM EDT Shortness of breath documented in this encounter Results * EKG (05/06/2023 10:57 AM EDT) 05/06/2023 10:5 7 AM EDT Procedure Note Wil Aguillon DO - 05/06/2023 10:57 AM EDT REASON FOR STUDY: SOB CONCLUSIONS: Sinus rhythm with frequent Premature ventricular complexes Left bundle branch block Abnormal ECG When compared with ECG of 18-NOV-2022 10:05, Premature ventricular complexes are now Present T wave inversion no longer evident in Inferior leads Ventricular Rate: 67 Atrial Rate: 71 NV Interval: 118 QRS Duration: 146 QT/QTc: 438/462 ms P-R-T [place]: 40 : -1 : 119 degrees eVrna Sprague MD EKG [facility] documented in this encounter Visit Diagnoses Diagnosis Bronchitis, complicated- Primary Bronchitis, not specified as acute or chronic Dyspnea on exertion Other dyspnea and respiratory abnormality Shortness of breath History of colon polyps Personal history of colonic polyps 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 Care Teams Cruise Agent Relationship Specialty Start Date End Date Rohan Mckenzie, DO [address] [place] [address] PCP - General Family Medicine 05/27/16 documented as of this encounter"
--- OUTSIDE RECORDS SUMMARY | 2023-06-16 01:43 | External Medical Summary | Summary of Care ---
Author Name Unknown Organization [facility] Address [address] [facility] [place] [address] Phone [phone] Care Team Providers Care Crutcher Helper Name Role Phone Rohan Mckenzie DO Primary Care Provider [phone] Reason for Visit * Reason Comments Back Pain Encounter Details Date Type Department Care Team Description 04/27/2023 Office Visit Interventional Pain Center, [facility] [address] [place] [address] CousinsSamuel JeffDO [address] [place] [address] Spondylosis of lumbar region without myelopathy or radiculopathy* Allergies No known active allergiesdocumented as of this encounter (statuses as of 04/27/2023) Medications Medication Sig Dispensed Refills Start Date [...] for Wheezing. 18 g 1 04/22/2023 Active documented as of this encounter (statuses as of 04/27/2023) Active Problems Problem Noted Date Tinea pedis of both feet 11/18/2022 Infrarenal abdominal aortic aneurysm (AA A) without rupture 11/18/2022 Carotid stenosis, non-symptomatic, bilat eral 11/18/2022 PVD (peripheral vascular disease) 2022 Atherosclerosis of [place] coronary arter y without angina pectoris 09/15/2022 Lung fibrosis 08/07/2021 Lung nodule 05/30/2021 Overview: Repeat CT in 12/07 Abdominal aortic ectasia 02/19/2021 Overview: Recheck 03/10 Coronary artery disease of n ative artery of [place] heart with stable angina pectoris 09/19/2020 Essential (primary) hypertension 021 S/P angioplasty with stent 03/07/2020 Coronary artery disease involving huddleston ry bypass graft of [place] heart 03/07/2020 Chronic venous stasis dermatitis 018 [...] as of this encounter (statuses as of 04/27/2023) Resolved Problems Problem Noted Date Resolved Date [...] Update ICD-10 update of inactive term 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 documented as of this encounter (statuses as of 04/27/2023) Immunizations Name Administration Dates Next Due COVID-19 mRNA, LNP-s, No Pre serve, 2-Dose Series ([employer]) 05/27/2021,10/10/2020,09/12/2020 Covid-19, Mrna, Lnp-s, Pf, B ivalent, 30 Mcg, IM, 12 yrs and above (Pfizer) 06/23/2022 Pneumococcal Conjugate Vacci ne, 20-valent ([id number]) 07/03/2022 Pneumococcal Polysaccharide PPV23 (Pneumovax) 06/17/2021,04/01/2006 SEASONAL [...] as of this encounter Progress Notes * Samuel Simon, DO - 04/27/2023 10:36 AM EDT Name: Brandan Morgan Date: 04/27/2023 HPI: Brandan Morgan is a 67 year old male seen in the pain management clinic for re- evaluation. Since I last saw him, he did undergo vascular surgery in this did resolve his lower extremity radicular symptomatology. He still however has persistent lumbar pain with activities. He still feels that when he walks that his back bothers him in his improved sitting. His underlying spinal stenosis is fairly mild overall. He did not respond to caudal or interlaminar epidural steroid injection. He is looking for alternatives if possible. 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, T1N0M0 Other specified forms of chronic ischemic heart disease age 41 12/23/1996 angioplasty stent, inferior posterior [place] Personal history of colonic polyps 03/28/2009 adenoma repeat in 1 yr, history of villous adenoma 2007 Personal history of colonic polyps 03/28/2010 polyps--hyperplastic tissue repeat in 2 yrs Personal history of colonic polyps 01/06/2013 normal no polyps, benign mucosa post inferior wall [place] 12/23/1996 Past Surgical History: Procedure Laterality Date CARDIAC ANGIOPLASTY, PERCUTANEOUS, 1 ARTERY Right 03/07/2020 PTCA, CARDIAC ANGIOPLASTY, PERCUTANEOUS, 1 ARTERY performed by Johny Schmidt DO at [facility] COLONOSCOPY THRU STOMA, W/BIOPSY 03/28/2010 polyps--hyperplastic tissue repeat in 2 yrs COLONOSCOPY W/ BIOPSY (RECTUM) 03/28/2009 adenoma repeat in 1 yr COLONOSCOPY W/ LESION REMOVAL, SNARE 08/12/2007 villous adenoma, repeat 6 months COLONOSCOPY W/ LESION REMOVAL, SNARE 02/10/2008 repeat in 1 yr COLONOSCOPY, DIAGNOSTIC (RECTUM) 01/06/2013 COLONOSCOPY FLEXIBLE PROXIMAL DIAGNOSTIC performed by Eloy Wilder MD at ENDOSCOPY [facility], NO RESIDUAL POLYP TISSUE REPEAT COLONOSCOPY IN 5 YEARS COLONOSCOPY, DIAGNOSTIC (RECTUM) 01/12/2018 adenomatous & hyperplastic polyps, repeat 5 yrs/COLONOSCOPY FLEXIBLE PROXIMAL DIAGNOSTIC performed by Eloy Wilder MD at ENDOSCOPY [facility] CORONARY ARTERY DILATION, [place] age 41 inferior wall [place] age 41, 1996, angioplasty, stent at [facility] ENDART COMMON FEMORAL Left 12/24/2022 COMMON FEMORAL ENDARTERECTOMY performed by Jean Garcia MD at OR [facility] EXCISION OF MOUTH FLOOR LESION Right 08/09/2015 EXCISION LESION FLOOR OF MOUTH performed by Rush Landaverde DO at OR [facility] ILIAC ART. REVASC W/ STENT+ANGIOPLASTY Left 12/24/2022 ILIAC ARTERY REVASC W/ STENT+ANGIOPLASTY performed by Jean Garcia MD at OR [facility] INFORMATION Right R ankle fx repair w/ hardware. INJECT DX/THER SUBSTANCE INTERLAMINAR LUMBAR/SACRAL W IMAGE GUIDE 05/20/2022 INJECTION SPINE LUMBAR OR SACRAL performed by Samuel Simon DO at OR [facility] INJECT DX/THER SUBSTANCE INTERLAMINAR LUMBAR/SACRAL W IMAGE GUIDE 09/09/2022 INJECTION SPINE LUMBAR OR SACRAL performed by Samuel Simon DO at OR [facility] IR ARTERIOGRAM EXTREMITY UNILATERAL Left 12/24/2022 IMAGING SUPERVISION & INTERPRETATION EXTREMITY UNILATERAL performed by Jean Garcia MD atOR [facility] PELVIS/HIP JOINT SURGERY NEC Left 09/17/2021 UNLISTED PROCEDURE PELVIS OR HIP JOINT performed by Micky Rodriguez DO at OR [facility] PELVIS/HIP JOINT SURGERY NEC Right 12/17/2021 HIP CORE DECOMPRESSION performed by Micky Rodriguez DO at OR [facility] REMOVAL OF APPENDIX age 19 [place] REMOVAL OF NECK LYMPH NODES Right 08/09/2015 SUPRAHYOID LYMPHADENECTOMY performed by Rush Landaverde DO at OR [facility] REMOVAL OF SUBMAXILLARY GLAND Right 08/09/2015 EXCISION SUBMANDIBULAR (SUBMAXILLARY) GLAND performed by Rush Landaverde DO at OR [facility] REMOVE CATARACT, INSERT LENS PROSTH Right 06/27/2014 EXTRACAPSULAR CATARACT REMOVAL WITH INTRAOCULAR LENS performed by Rich Brooks MD at OR [facility] REMOVE CATARACT, INSERT LENS PROSTH Left 07/22/2022 LEFT EXTRACAPSULAR CATARACT REMOVAL WITH INTRAOCULAR LENS performed by Abilio Hensley DO at OR [facility] SKIN SPLIT GRAFT, FACE/NECK/EARS Right 08/09/2015 SPLIT GRAFT FACE SCALP ETC LESS THAN 100SQ CM performed by Rush Landaverde DO at OR [facility] Current Outpatient Medications Medication Sig Dispense Refill [...] shoes with accommodative inserts - Offloading of [id number] metatarsal head Dx: neuropathic ulceration right foot 1 Each 0 nitroglycerin (NITROSTAT) 0.[address] 1 Tablet under the tongue every 5 minutes as needed. No current facility-administered medications for this visit. Review of patient's allergies indicates: No Known Allergies Social History Tobacco Use Smoking Status Former Packs/day: 0.00 Years: 20.00 Pack years: 0.00 Types: Cigarettes Quit date: 08/07/2015 Years since quittin.7 Smokeless Tobacco Never Social History Substance and Sexual Activity Alcohol Use Yes Comment: 4-6 beer per day PHYSICAL EXAM: There were no vitals taken for this visit. He can stand ambulate without gait abnormality. He has +5 over 5 motor function lower extremities. There are no gross sensory deficits noted. He does have pain with extension facet loading bilaterally. He does not have sacroiliac joint or trochanteric tenderness. ASSESSMENT: Lumbar spondylosis without myelopathy radiculopathy Mild lumbar spinal stenosis. RECOMMENDATION: I think evaluation of the L4-L5 and L5-S1 facet joints bilaterally would certainly be reasonable. The initial use of medial branch blocks as well as the ultimate pursued radiofrequency ablation was reviewed as well. He would like proceed will be scheduled for bilateral L4-L5 and L5-S1 lumbar facet joint nerve blocks pending insurance approval. Samuel Simon DO 04/27/2023 10:36 AM I spent a total of 20-29 minutes (exact time 23 mins) on the date of service in preparation, delivery, and documentation of the care provided to Brandan Morgan excluding any time spent in the performance of separately billed services. documented in this encounter Nursing Notes * Cindy Adams LPN - 04/27/2023 10:19 AM EDT Patient presents with low back pain, does not radiate into lower ext No new spine imaging documented in this encounter Plan of Treatment Upcoming Encounters Date Type Specialty Care Team Description 05/17/2023 Office Visit Family Medicine Rohan Mckenzie, DO [address] [place] [address] 05/20/2023 Office Visit Ophthalmology Abilio Hensley DO [address] [facility] [place] [address] 05/25/2023 Hospital Encounter Endoscopy Naldo Lyon MD [address] [place] [address] 05/25/2023 Surgery Endoscopy Naldo Lyon MD [address] [place] [address] COLONOSCOPY FLEXIBLE PROXIMAL DIAGNOSTIC 06/18/2023 Office Visit Cardiology Víctor Mcclain MD [address] [place] [address] 06/23/2023 Hospital Encounter Surgery Samuel Simon, DO [address] [place] [address] 06/23/2023 Surgery Surgery Samuel Simon, DO [address] [place] [address] L-/S-SPINE PARAVERTEBRAL FACET INJ, 1 LEVEL 10/06/2023 Office Visit Podiatry Leonela Torre, DPM [address] [facility] [place] [address] Scheduled Orders Name Type Priority Associated Diagnoses Orde r Schedule L-/S-SPINE PARAVERTEBRAL FACET INJ,1 LEVEL Procedures Routine Spondylosis of lumbar region without myelopathy or radiculopathy Expected: 05/11/2023, Expires: 05/28/2024 L-/S-SPINE PARAVERTEBRL FACET INJ,2 LEVELS Procedures Routine Spondylosis of lumbar region without myelopathy or radiculopathy Expected: 05/11/2023, Expires: 05/28/2024 Scheduled Procedures Name Priority Associated Diagnoses Date/Ti [...] this encounter Medical Devices Implanted Type Area Packaging Supervisor Device Identifier Shelf Expiration Date Model / Serial / Lot Lens 17.5 Sn60wf - [id number] Implanted:Qty : 1 on 06/27/2014 by Rich Brooks MD at OR [facility] Right: Eye [employer] 03/18/2019 SN60WF.17 5 / [id number] / Lens 18.0 Sn60wf - [id number] - [id number] Implanted:Qty : 1 on 07/22/2022 by Abilio Hensley DO at OR [facility] Left: Eye MIRIAN : SURGICAL 11/16/2023 SN60WF.1 8 0 / [id number] / Patch Xenosure [id number] - [id number] Implanted:Qty : 1 on 12/24/2022 by Jean Garcia MD at OR [facility] Left: Femoral Artery [employer] [id number] 08/15/2028 E0.8P8 / [id number] / [id number] documented as of this encounter Visit Diagnoses Diagnosis Spondylosis of lumbar region without myelopathy or radiculopathy- Primary Lumbosacral spondylosis without myelopathy History of colon [...] and were consensually agreed upon. Care Teams Crutcher Helper Relationship Specialty Start Date End Date Rohan Mckenzie, DO [address] [place] [address] PCP - General Family Medicine 05/27/16 documented as of this encounter
--- OUTSIDE RECORDS SUMMARY | 2023-06-16 01:43 | External Medical Summary | Summary of Care ---
Author Name Unknown Organization [facility] Address [address] [facility] [place] [address] Phone [phone] Care Team Providers Care Caterpillar Operator Name Role Phone Rohan Mckenzie DO Primary Care Provider [phone] Reason for Visit * Reason Comments Outpatient Testing Encounter Details Date Type Department Care Team (Late st Contact Info) Description 05/17/2023 2:50 PM EDT Laboratory Laboratory [facility] [place] [address] [place] [phone] [place] [address] [place] [address] BPH with obstruction/lower urinary tract symptoms; Acute cough Allergies No known active allergiesdocumented as of this encounter (statuses as of 05/17/2023) Medications Medication Sig Dispensed Refills Start Date [...] for Cough. 120 mL 0 05/17/2023 Active Hospital, Clinic, or Other Facility Administered Medication Ordered Dose Route Frequency Start Date End Date Status Albuterol Sulfate (Proventil) (2.5 MG/3ML) 0.083% inhalation solution 2.5 mgIndications:Dyspnea on exertion 2.5 mg NEBULIZER ONCE PRN 05/06/2023 05/05/2024 Active documented as of this encounter (statuses as of 05/17/2023) Active Problems Problem Noted Date Diagnosed Date Aneurysm of aorta 05/17/2023 Old myocardial infarction 05/17/2023 Neuropathy 05/17/2023 Tinea pedis of both feet 11/18/2022 Infrarenal abdominal aortic aneurysm (AAA) witho ut rupture 11/18/2022 Carotid stenosis, non-symptomatic, bilateral 09/2022 PVD (peripheral vascular disease) 10/07/2022 Atherosclerosis of [place] co ronary artery without angina pectoris 09/15/2022 Pulmonary fibrosis 08/07/2021 Lung nodule 05/30/2021 Overview: Repeat CT in 12/07 Abdominal aortic ectasia 02/19/2021 Overview: Recheck 03/10 Coronary artery disease of n ative artery of [place] heart with stable angina pectoris 09/19/2020 Essential (primary) hypertension 09/19/2020 S/P angioplasty with stent 03/07/2020 Coronary artery disease invo lving coronary bypass graft of [place] heart 03/07/2020 Chronic venous stasis dermatitis 02/09/2018 [...] as of this encounter (statuses as of 05/17/2023) Resolved Problems Problem Noted Date Diagnosed Date [...] wall [place], angioplasty and stent placement at [facility]. documented as of this encounter (statuses as of 05/17/2023) Immunizations Name Administration Dates Next Due COVID-19 mRNA, LNP-s, No Pre serve, 2-Dose Series ([employer]) 05/27/2021,10/10/2020,09/12/2020 Covid-19, Mrna, Lnp-s, Pf, B ivalent, 30 Mcg, IM, 12 yrs and above ([employer]) 06/23/2022 Pneumococcal Conjugate Vacci ne, 20-valent ([id number]) 07/03/2022 Pneumococcal Polysaccharide PPV23 (Pneumovax) 06/17/2021,04/01/2006 SEASONAL [...] 05/20/2023 11:15 AM EDT Office Visit Ophthalmology, [facility] [address] [facility] [place] [id number] Abilio Hensley, DO [address] [facility] [place] [address] 06/02/2023 11:00 AM EST PulmDiagnostic Pulmonary Function Lab, [facility] [address] [place] [address] [place], [address] [place] [address] 06/18/2023 10:30 AM EST Office Visit Cardiology, [facility] [address] [place] [address] Víctor Mcclain MD [address] [place] [address] 06/23/2023 10:20 AM EST Hospital Encounter OR [facility], Operating Room [facility] [address] [place] [phone] Samuel Simon DO [address] [place] [address] 06/23/2023 10:20 AM EST - 06/23/2023 10:40 AM EST Surgery OR [facility], Operating Room [facility] [address] [place] [phone] Samuel Simon DO [address] [place] [address] L-/S-SPINE PARAVERTEBRAL FACET INJ, 1 LEVEL 08/10/2023 1:00 PM EST Nurse Only Ancillary [facility] [place] [address] [place] [address] Im, Nurse Annual Wellness [facility] [address] [place] [address] 09/21/2023 11:15 AM EST Hospital Encounter ENDO [facility], Endoscopy Room [facility] [address] [place] [phone] Naldo Lyon MD [address] [place] [address] 09/21/2023 11:15 AM EST - 09/21/2023 11:45 AM EST Surgery ENDO [facility], Endoscopy Room [facility] [address] [place] [phone] Naldo Lyon MD [address] [place] [address] COLONOSCOPY FLEXIBLE PROXIMAL DIAGNOSTIC 10/06/2023 1:00 PM EDT Office Visit Podiatry [facility] [address] [facility] [place] [address] Leonela Torre, DPM [address] [place] [address] 12/08/2023 10:00 AM EDT Office Visit Family Practice [facility] [address] [facility] [place], [place] [address] Rohan Mckenzie, DO [address] [facility] [place], [place] [address] Pending Results Name Type Priority Associated Diagnoses Date /Time PSA Lab Routine BPH with obstruction/lower urinary tract symptoms 05/17/2023 1:37 PM EDT BNP, NT-PRO Lab Routine Acute cough 05/17/2023 1:37 PM EDT Scheduled Procedures Name Priority Associated Diagnoses Date/Ti [...] this encounter Medical Devices Implanted Type Area Biofuels Research Scientist Device Identifier Shelf Expiration Date Model / Serial / Lot Lens 17.5 Sn60wf - [id number] Implanted:Qty : 1 on 06/27/2014 by Rich Brooks MD at OR [facility] Right: Eye [employer] 03/18/2019 SN60WF.17 5 / [id number] / Lens 18.0 Sn60wf - [id number] - [id number] Implanted:Qty : 1 on 07/22/2022 by Abilio Hensley DO at OR [facility] Left: Eye MIRIAN : SURGICAL 11/16/2023 SN60WF.1 8 0 / [id number] / Patch Xenosure [id number] - [id number] Implanted:Qty : 1 on 12/24/2022 by Jean Garcia MD at [facility] Left: Femoral Artery [employer] [id number] 08/15/2028 E0.8P8 / [id number] / [id number] documented as of this encounter Visit Diagnoses Diagnosis BPH with obstruction/lower urinary tract symptoms Hypertrophy of prostate with urinary obstruction and other lower urinary tract symptoms (LUTS) Acute cough Spondylosis of lumbar region without myelopathy or [...] and were consensually agreed upon. Care Teams Caterpillar Operator Relationship Specialty Start Date End Date Rohan Mckenzie DO [address] [place] [address] PCP - General Family Medicine 05/27/16 documented as of this encounter
--- OUTSIDE RECORDS SUMMARY | 2023-06-16 01:44 | External Medical Summary ---
Author Name Unknown Address Unknown Organization : Laboratory Report Ordering Provider Test Date Status SUMANTH BECKFORD 12/24/2022 20:52:39 Final Observation Date Value Abnormality Reference (Units ) Status Glucose Point of Care 12/24/2022 20:52:39 159 Above high normal 70-120 (mg/dL) Final Performing Location
--- OUTSIDE RECORDS SUMMARY | 2023-06-16 01:44 | External Medical Summary | Summary of Care ---
Author Name Unknown Organization [facility] [address] [address] Phone [phone] Care Team Providers Care Manager Inpatient Name Role Phone Rohan Mckenzie DO Primary Care Provider [phone] Reason for Visit * Reason Comments eRx-Medication Refill Encounter Details Date Type Department Care Team Description 01/14/2023 Refill Cardiology, [facility] [address] [place] [address] Víctor Mcclain MD [address] [place] [address] hypercholesterol Allergies No known active allergiesdocumented as of this encounter (statuses as of 01/14/2023) Medications Medication Sig Dispensed Refills Start Date [...] for Wheezing. 18 g 1 3 Active Allopurinol 300 MG Oral Tablet (Zyloprim)Indicati ons:Gouty arthropathy TAKE 1 TABLET BY MOUTH EVERY DAY 90 Tablet 1 3 Active Metoprolol Succinate ER 50 [...] DAY IN THE MORNING 90 Tablet 3 2 01/15/20 23 Discontinued documented as of this encounter (statuses as of 01/14/2023) Active Problems Problem Noted Date Tinea pedis of both feet 11/18/2022 Infrarenal abdominal aortic aneurysm (AA A) without rupture 11/18/2022 Carotid stenosis, non-symptomatic, bilat eral 11/18/2022 PVD (peripheral vascular disease) 2022 Atherosclerosis of [place] coronary arter y without angina pectoris 09/15/2022 Lung fibrosis 08/07/2021 Lung nodule 05/30/2021 Overview: Repeat CT in 12/07 Abdominal aortic ectasia 02/19/2021 Overview: Recheck 03/10 Coronary artery disease of n ative artery of [place] heart with stable angina pectoris 09/19/2020 Essential (primary) hypertension 021 S/P angioplasty with stent 03/07/2020 Coronary artery disease involving huddlestno ry bypass graft of [place] heart 03/07/2020 Chronic venous stasis dermatitis 018 [...] as of this encounter (statuses as of 01/14/2023) Resolved Problems Problem Noted Date Resolved Date [...] wall SC, angioplasty and stent placement at [facility]. documented as of this encounter (statuses as of 01/14/2023) Immunizations Name Administration Dates Next Due COVID-19 mRNA, LNP-s, No Pre serve, 2-Dose Series (Pfizer) 05/27/2021,10/10/2020,09/12/2020 Covid-19, Mrna, Lnp-s, Pf, B ivalent, 30 Mcg, IM, 12 yrs and above (Pfizer) 06/23/2022 Pneumococcal Conjugate Vacci ne, 20-valent ([id number]) 07/03/2022 Pneumococcal Polysaccharide PPV23 (Pneumovax) 06/17/2021,04/01/2006 Seasonal [...] encounter Miscellaneous Notes * Telephone Encounter - AMANDA Easton - 01/14/2023 9:00 AM EDTSigned Prescriptions: Disp Refills Aspirin Low Dose 81 MG Oral Tablet Delayed*90 Tab*3 Sig: TAKE 1 TABLET BY MOUTH EVERY DAY IN THE MORNING Authorizing Provider: DARYL WALKER * Telephone Encounter - CHETNA Muller - 01/14/2023 8:34 AM EDTPending Prescriptions: Disp Refills Aspirin Low Dose 81 MG Oral Tablet Delayed*90 Tab*3 Sig: TAKE 1 TABLET BY MOUTH EVERY DAY IN THE MORNING * Telephone Encounter - CHETNA Muller - 01/14/2023 8:33 AM EDT Did you pend patient's preferred pharmacy and medication before forwarding?yes Pharmacy: [id number] [id number] [facility] Pending Prescriptions: Disp Refills Aspirin Low Dose 81 MG Oral Tablet [place]*90 Tab*3 Sig: TAKE 1 TABLET BY MOUTH EVERY DAY IN THE MORNING Last Visit: 06/17/2022 (in office), Visit date not found (telemedicine) Next Visit: 03/04/2023 If no future appointments scheduled, and last appointment is greater than a year ago, please schedule patient for a follow-up appointment Last date the medication was ordered: 01-20-2022 Is this request for a controlled substance?No [...] Encounters Date Type Specialty Care Team Description 01/20/2023 Office Visit Vascular Surgery Jean Garcia MD [address] [place] [address] 03/04/2023 Office Visit Cardiology Víctor Mcclain MD [address] [place] [address] 04/07/2023 Office Visit Podiatry Leonela Torre, DPM [address] [facility] [place] [address] 05/17/2023 Office Visit Family Medicine Rohan Mckenzie, DO [address] [place] [address] 05/20/2023 Office Visit Ophthalmology Abilio Hensley, DO [address] [facility] [place] [address] 05/25/2023 Hospital Encounter Endoscopy Naldo Lyon MD [address] [place] [address] 05/25/2023 Surgery Endoscopy Naldo Lyon MD [address] [place] [address] COLONOSCOPY FLEXIBLE PROXIMAL DIAGNOSTIC Scheduled Procedures Name Priority Associated Diagnoses Date/Ti me COLONOSCOPY FLEXIBLE PROXIMAL DIAGNOSTIC Recall History of colon polyps 05/25/2023 11:45 AM EST Health Maintenance Due Date Last Done Comments Depression Screening, Annual for Pts 12 and Over 02/08/2020 02/07/2019 *NEPHROLOGY REFERRAL DUE TO RESISTANT HTN 10/09/2022 COLONOSCOPY-EVERY 5 YRS AGES 18-100 01/12/2023 01/12/2018, 01/12/2018, 01/17/2013, Additional history exists GFR 12/26/2023 12/25/2022, 02/2023, 11/18/2022, Additional history exists Albumin/Creatinine Ratio 10/23/2025 10/23/2022 Diabetes Screening 12/25/2025 12/25/2022, 0 12/25/2022, 12/24/2022, Additional history exists DTaP,Tdap,and Td Vaccines (4 - Td or Tdap) 04/21/2027 04/21/2017, 05/27/2016, 03/05/2006 Zoster Vaccines Completed 08/17/2019, 04/20, 07/02/2016 Influenza Vaccine (FLU shot) Completed , 04/22/2021, 04/01/2020, Additional history exists COVID-19 Vaccine Completed 06/23/2022, 03/2021, 10/10/2020, Additional [...] this encounter Medical Devices Implanted Type Area Certified Massage Therapist Device Identifier Shelf Expiration Date Model / Serial / Lot Lens 17.5 Sn60wf - [id number] Implanted:Qty : 1 on 06/27/2014 by Rich Brooks MD at OR [facility] Right: Eye [employer] 03/18/2019 SN60WF.17 5 / [id number] / Lens 18.0 Sn60wf - [id number] - [id number] Implanted:Qty : 1 on 07/22/2022 by Abilio Hensley DO at OR [facility] Left: Eye MIRIAN : SURGICAL 11/16/2023 SN60WF.1 8 0 / [id number] / Patch Xenosure 0.9nha1ep - [id number] Implanted:Qty : 1 on 12/24/2022 by Jean Garcia MD at [place] [facility] Left: Femoral Artery [employer] [id number] 08/15/2028 E0.8P8 / [id number] / [id number] documented as of this encounter Visit Diagnoses Diagnosis hypercholesterol Pure hyperglyceridemia History of colon polyps Personal history of [...] and were consensually agreed upon. Care Teams Manager Inpatient Relationship Specialty Start Date End Date Rohan Mckenzie, DO [address] [place] [address] PCP - General Family Medicine 05/27/16 documented as of this encounter
--- OUTSIDE RECORDS SUMMARY | 2023-06-16 01:44 | External Medical Summary ---
Author Name Unknown Address Unknown Organization : Laboratory Report Ordering Provider Test Date Status SUMANTH BECKFORD 12/25/2022 07:11:13 Final Observation Date Value Abnormality Reference (Units ) Status Glucose Point of Care 12/25/2022 07:11:13 188 Above high normal 70-120 (mg/dL) Final Performing Location
--- OUTSIDE RECORDS SUMMARY | 2023-06-16 01:44 | External Medical Summary ---
Author Name Unknown Address Unknown Organization [id number]:[facility] - [facility] [address] [place] [address] Laboratory Report Ordering Provider Test Date Status GILDA DIEHL 12/25/2022 06:06:00 Final Observation Date Value Abnormality Reference (Units ) Status WBC, Total 12/25/2022 06:06:00 12.96 Above high normal 4.00-10.80 (K/uL) Final RBC 12/25/2022 06:06:00 3.73 4.50-5.25 (M/uL) Final Hemoglobin 12/25/2022 06:06:00 12.4 Below low normal 14.0-16.8 (g/dL) Final HCT 12/25/2022 06:06:00 36.7 Below low normal 40.0-48.4 (%) Final MCV 12/25/2022 06:06:00 98.4 82.0-99.5 (fL) Final MCH 12/25/2022 06:06:00 33.2 27.0-34.0 (pg) Final MCHC 12/25/2022 06:06:00 33.8 32.0-36.0 (g/dL) Final RDW 12/25/2022 06:06:00 13.0 11.5-15.5 (%) Final Platelets 12/25/2022 06:06:00 128 Below low normal 140-400 (K/uL) Final MPV 12/25/2022 06:06:00 9.4 6.6-11.1 (fL) Final Nucleated erythrocytes/100 leukocytes [Ratio] in Blood by Automated count 12/25/2022 06:06:00 0 <=0 (/100 WBCs) Final Performing Location [facility] - [address] [place] [address]
--- OUTSIDE RECORDS SUMMARY | 2023-06-16 01:44 | External Medical Summary ---
Author Name Unknown Address Unknown Organization : Laboratory Report Ordering Provider Test Date Status SUMANTH BECKFORD 12/24/2022 23:12:12 Final Observation Date Value Abnormality Reference (Units ) Status Glucose Point of Care 12/24/2022 23:12:12 172 Above high normal 70-120 (mg/dL) Final Performing Location
--- OUTSIDE RECORDS SUMMARY | 2023-06-16 01:44 | External Medical Summary | Summary of Care ---
Author Name Unknown Organization [facility] Address [address] [place] [address] Phone [phone] Care Team Providers Care Rn Intensive Care Unit Name Role Phone MkTrinity kim Brittney CESPEDES Primary Care Provider [phone] Reason for Visit * Auth/Cert Specialty Diagnoses / Procedures Referred By Contac t Referred To Contact Diagnoses PAD (peripheral artery disease) ([facility]) PAD (peripheral artery disease) ([facility]) [I73.9] Procedures ENDART COMMON FEMORAL IR ARTERIOGRAM EXTREMITY UNILATERAL ILIAC ART. REVASC W/ STENT+ANGIOPLASTY COMMON FEMORAL ENDARTERECTOMY IMAGING SUPERVISION & INTERPRETATION EXTREMITY UNILATERAL ILIAC ARTERY REVASC W/ STENT+ANGIOPLASTY Referral ID Status Reason Start Date Expiration Date Visits Re quested Visits Authorized [id number] Encounter Details Date Type Department Care Team Description 12/24/2022 - 12/25/2022 Hospital Encounter [facility] 8, [facility] 8th Floor [address], [place] [id number] Jean Garcia MD [address], [place] [id number] Allergies No known active allergiesdocumented as of this encounter (statuses as of 12/25/2022) Medications Medication Sig Dispensed Refills Start Date [...] every 5 minutes as needed. 0 Active Ezetimibe 10 MG Oral Tablet (Zetia)Indications: High triglycerides TAKE 1 TABLET BY MOUTH EVERY DAY IN THE MORNING 90 Tablet 3 01/20/2022 Active Aspirin Low Dose 81 MG Oral Tablet Delayed Release (aspirin enteric coated)Indications: High triglycerides TAKE 1 TABLET BY MOUTH EVERY DAY IN THE MORNING 90 Tablet 3 01/20/2022 Active Furosemide 20 MG Oral Tablet (Lasix) [...] tinea pedis 85 g 3 10/27/2022 Active documented as of this encounter (statuses as of 12/25/2022) Active Problems Problem Noted Date Tinea pedis of both feet 11/18/2022 Infrarenal abdominal aortic aneurysm (AA A) without rupture 11/18/2022 Carotid stenosis, non-symptomatic, bilat eral 11/18/2022 PVD (peripheral vascular disease) 2022 Atherosclerosis of [place] coronary arter y without angina pectoris 09/15/2022 Lung fibrosis 08/07/2021 Lung nodule 05/30/2021 Overview: Repeat CT in 12/07 Abdominal aortic ectasia 02/19/2021 Overview: Recheck 03/10 Coronary artery disease of n ative artery of [place] heart with stable angina pectoris 09/19/2020 Essential (primary) hypertension 021 S/P angioplasty with stent 03/07/2020 Coronary artery disease involving huddleston ry bypass graft of [place] heart 03/07/2020 Chronic venous stasis dermatitis 018 [...] as of this encounter (statuses as of 12/25/2022) Resolved Problems Problem Noted Date Resolved Date [...] Update ICD-10 update of inactive term 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 documented as of this encounter (statuses as of 12/25/2022) Immunizations Name Administration Dates Next Due COVID-19 mRNA, LNP-s, No Pre serve, 2-Dose Series (Pfizer) 05/27/2021,10/10/2020,09/12/2020 Covid-19, Mrna, Lnp-s, Pf, B ivalent, 30 Mcg, IM, 12 yrs and above (Pfizer) 06/23/2022 Pneumococcal Conjugate Vacci ne, 20-valent ([id number]) 07/03/2022 Pneumococcal Polysaccharide PPV23 (Pneumovax) 06/17/2021,04/01/2006 Seasonal [...] Sign Reading Time Taken Comments Blood Pressure 134/64 12/25/2022 7:22 AM EDT Pulse 78 12/25/2022 7:22 AM EDT Temperature 36.3 C (97.4 F) 12/25/2022 7:22 AM ED T Respiratory Rate 16 12/25/2022 7:22 AM EDT Oxygen Saturation 96% 12/25/2022 7:22 AM EDT Inhaled Oxygen Concentration - - Weight 114.5 kg (252 lb 8 oz) 12/25/2022 6:31 AM EDT Height 188 cm (6' 2") 12/24/2022 6:08 AM EDT Body Mass Index 32.42 12/24/2022 6:08 AM EDT documented in this [...] No 12/24/2022 documented as of this encounter Discharge Summaries * Jairon Anne, - 12/25/2022 7:56 AM EDT Images from the original note were not included. [address] [address] Admission Date: 12/24/2022 Discharge Date: 12/25/2022 DISCHARGE DIAGNOSES: Active Hospital Problems Diagnosis *Principal Diagnosis - PVD (peripheral vascular disease) ([facility]) Resolved Hospital Problems No resolved problems to display. Other Significant Diagnoses: none CONDITION ON DISCHARGE: stable Cognition: normal DISPOSITION ON DISCHARGE: home FOLLOW-UP: Future Appointments Appt Date/Time Provider Department 01/06/2023 2:10 PM Jean Garcia MD Vascular Surgery, [facility] 01/13/2023 10:[address] Vascular Lab, [facility] 2nd Floor, [place] 01/13/2023 11:[address] Vascular Lab, [facility] 2nd [facility] 01/20/2023 10:30 AM Jean Garcia MD Vascular Surgery, [facility] 03/04/2023 1:30 PM Víctor Mcclain MD Cardiology, [facility] 04/07/2023 1:00 PM Leonela Torre DPM Podiatry [facility] 05/17/2023 12:40 PM Trinity Mckenzie DO [facility] 05/20/2023 11:15 AM Abilio Hensley DO Ophthalmology, [facility] Outpatient testing already scheduled: None Outpatient testing that needs to be arranged: None Inpatient test results pending: None MEDICATIONS ON DISCHARGE: MEDICATION UPDATES AT DISCHARGE CONTINUE taking these medications INSTRUCTIONS albuterol HFA 108 (90 BASE) MCG/ACT inhaler Inhale 2 Puffs by mouth every 6 hours as needed for Wheezing. Allopurinol 300 MG Tablet Commonly known as: Zyloprim TAKE 1 TABLET BY MOUTH EVERY DAY Aspirin Low Dose 81 MG Tbec Generic drug: aspirin enteric coated TAKE 1 TABLET BY MOUTH EVERY DAY IN THE MORNING B Complex 50 Tabs Take by mouth daily . Econazole Nitrate 1 % cream Commonly known as: Spectazole Apply to feet (on nails and in between toes) 2x weekly as maintenance for tinea pedis Ezetimibe 10 MG Tablet Commonly known as: Zetia TAKE 1 TABLET BY MOUTH EVERY DAY IN THE MORNING Furosemide 20 MG Tablet Commonly known as: Lasix TAKE 1-2 TABS PER WEEK DIRECTED losartan 100 MG Tablet Commonly known as: Cozaar TAKE 1 TABLET BY MOUTH EVERY DAY metoprolol succinate XL 50 MG Tb24 Commonly known as: toPROL XL TAKE 1/2 TABLET BY MOUTH EVERY DAY Misc. Devices Misc Custom molded extra depth shoes with accommodative inserts - Offloading of right 4th metatarsal head Dx: neuropathic ulceration right foot Nitroglycerin 0.4 MG Subl Commonly known as: Nitrostat Place 1 Tablet under the tongue every 5 minutes as needed. Simvastatin 40 MG Tablet Commonly known as: Zocor TAKE 1 TABLET BY MOUTH EVERY DAY Vitamin C 500 MG Tablet Commonly known as: Ascorbic Acid Take 1 Tablet by mouth in the morning. ALLERGIES: Patient has no known allergies. INSTRUCTIONS: Activity: No strenuous activity for 2 weeks Diet: heart healthy diet Code status (this admission): Full Code Discussion of adv directives occurred with - adult: Not Discussed due to patient's condition Indwelling devices: Prevena Vac Device ADMISSION HISTORY & PHYSICAL EXAM (focused): HISTORY OF PRESENT ILLNESS: Brandan Morgan is a 67 year old male who presents today for scheduled Left femoral endarterectomy & iliac stent placement. Last clinic visit was on 11/18/22, H&P Listed below. Date of Service::52 AM Brandan Morgan is a 67 year old male. Patient being seen in consultation at the request of Trinity Mckenzie DO Chief Complaint:Returnpt, PAD Since last visit, patient seen by Derm on 10/27/22, diagnosis of tinea pedis, prescribed creamswhich has lead to improvement in pt's rash Patient continues to have low back pains w/ radiation down both posterior legs. He was able to shopyesterday, at 3 different stores but had to stop due to pain. Continues to be w/out rest pain or ulcerations. present with today's visit. HPI: Reformed smoker who is under care of on site property manager for significant BL foot skin dryness and discoloration due to tinea pedis. Patient being treated with Triamcinolone lotion w/out much improvement. 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 No classic claudication, rest pain or ulcerations. Walking is limited due to his back issues. With that said, patient is able to walk on a treadmill for 10 mins of a time, limited again by his back. When he goes out to shopping, he is able to do better if he supports himself with a chart. No H/O leg vein or artery procedures or surgeries No H/O TIA, stroke or amaurosis fugax Current Outpatient Medications Medication Sig Dispense Refill B Complex Vitamins (B COMPLEX 50) TABS Take by mouth daily . vitamin c (ASCORBIC ACID) 500 MG Tablet Take 1 Tablet by mouth in the morning. Misc. Devices [facility] Custom molded extra depth shoes with accommodative inserts - Offloading ofright 4th metatarsal head Dx: neuropathic ulceration right foot 1 Each 0 nitroglycerin (NITROSTAT) 0.[address] 1 Tablet under the tongue every 5 minutes as needed. Ezetimibe 10 MG Oral Tablet (Zetia) TAKE 1 TABLET BY MOUTH EVERY DAY IN THE MORNING 90 Tablet 3 Aspirin Low Dose 81 MG Oral Tablet Delayed Release (aspirin enteric coated) TAKE 1 TABLET BY MOUTH EVERY DAY IN THE MORNING 90 Tablet 3 Furosemide 20 MG Oral Tablet (Lasix) TAKE 1-2 TABS PER WEEK DIRECTED 24 Tablet 6 Losartan Potassium 100 MG Oral Tablet (Cozaar) TAKE 1 TABLET BY MOUTH EVERY DAY 90 Tablet 3 Albuterol Sulfate HFA 108 (90 Base) MCG/ACT Inhalation Aerosol Solution Inhale 2 Puffs by mouthevery 6 hours as needed for Wheezing. 18 g 1 Allopurinol 300 MG Oral Tablet (Zyloprim) TAKE 1 TABLET BY MOUTH EVERY DAY 90 Tablet 1 Metoprolol Succinate ER 50 MG Oral Tablet Extended Release 24 Hour (toPROL XL) TAKE 1/2 TABLET BY MOUTH EVERY DAY 45 Tablet 3 Simvastatin 40 MG Oral Tablet (Zocor) TAKE 1 TABLET BY MOUTH EVERY DAY 90 Tablet 1 Econazole Nitrate 1 % External Cream (Spectazole) Apply to feet (on nails and in between toes) 2x weekly as maintenance for tinea pedis 85 g 3 No current facility-administered medications for this visit. Review of patient's allergies indicates: No Known Allergies Patient Active Problem List Diagnosis Code CHR ISCHEMIC HRT DIS NOS I25.9 hypercholesterol E78.1 No advance directive on file Z78.9 History of colonic polyps Z86.010 Gouty arthropathy M10.9 Dyslipidemia, goal LDL below 100 E78.5 Cataract extraction status Z98.49 Chronic venous stasis dermatitis I87.2 S/P angioplasty with stent Z95.820 Coronary artery disease involving coronary bypass graft of [place] heart I25.810 Coronary artery disease of [place] artery of [place] heart with stable angina pectoris (HCC) I25.118 Essential (primary) hypertension I10 Abdominal aortic ectasia (HCC) I77.811 Lung nodule R91.1 Lung fibrosis (HCC) J84.10 Atherosclerosis of [place] coronary artery without angina pectoris I25.10 PVD (peripheral vascular disease) (HCC) I73.9 Past Medical History: Diagnosis Date Benign neoplasm of colon 01/06/2013 COLONOSCOPY FLEXIBLE PROXIMAL DIAGNOSTIC performed by Eloy Wilder MD at ENDOSCOPY [facility], NO RESIDUAL POLYP TISSUE REPEAT COLONOSCOPY IN 5 YEAR CHR ISCHEMIC HRT DIS NOS 07/05/2002 COVID 12/2020 Gouty arthropathy 01/11/2004 HLD (hyperlipidemia) HTN (hypertension) hypercholesterol 12/23/1996 OA (osteoarthritis) 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, T1N0M0 Other specified forms of chronic ischemic heart disease age 41 12/23/1996 angioplasty stent, inferior posterior VA Personal history of colonic polyps 03/28/2009 adenoma repeat in 1 yr, history of villous adenoma 2007 Personal history of colonic polyps 03/28/2010 polyps--hyperplastic tissue repeat in 2 yrs Personal history of colonic polyps 01/06/2013 normal no polyps, benign mucosa post inferior wall VA 12/23/1996 Past Surgical History: Procedure Laterality Date CARDIAC ANGIOPLASTY, PERCUTANEOUS, 1 ARTERY Right 03/07/2020 PTCA, CARDIAC ANGIOPLASTY, PERCUTANEOUS, 1 ARTERY performed by Johny Schmidt DO at [facility] COLONOSCOPY THRU STOMA, W/BIOPSY 03/28/2010 polyps--hyperplastic tissue repeat in 2 yrs COLONOSCOPY W/ BIOPSY (RECTUM) 03/28/2009 adenoma repeat in 1 yr COLONOSCOPY W/ LESION REMOVAL, SNARE 08/12/2007 villous adenoma, repeat 6 months COLONOSCOPY W/ LESION REMOVAL, SNARE 02/10/2008 repeat in 1 yr COLONOSCOPY, DIAGNOSTIC (RECTUM) 01/06/2013 COLONOSCOPY FLEXIBLE PROXIMAL DIAGNOSTIC performed by Eloy Wilder MD at ENDOSCOPY [facility], NO RESIDUAL POLYP TISSUE REPEAT COLONOSCOPY IN 5 YEARS COLONOSCOPY, DIAGNOSTIC (RECTUM) 01/12/2018 adenomatous & hyperplastic polyps, repeat 5 yrs/COLONOSCOPY FLEXIBLE PROXIMAL DIAGNOSTIC performed by Eloy Wilder MD at ENDOSCOPY [facility] CORONARY ARTERY DILATION, [place] age 41 inferior wall VA age 41, 1996, angioplasty, stent at [facility] EXCISION OF MOUTH FLOOR LESION Right 08/09/2015 EXCISION LESION FLOOR OF MOUTH performed by Rush Landaverde DO at OR [facility] INFORMATION Right R ankle fx repair w/ hardware. INJECT DX/THER SUBSTANCE INTERLAMINAR LUMBAR/SACRAL W IMAGE GUIDE 05/20/2022 INJECTION SPINE LUMBAR OR SACRAL performed by Samuel Simon DO at OR [facility] INJECT DX/THER SUBSTANCE INTERLAMINAR LUMBAR/SACRAL W IMAGE GUIDE 09/09/2022 INJECTION SPINE LUMBAR OR SACRAL performed by Samuel Simon DO at OR [facility] PELVIS/HIP JOINT SURGERY NEC Left 09/17/2021 UNLISTED PROCEDURE PELVIS OR HIP JOINT performed by Micky Rodriguez DO at OR [facility] PELVIS/HIP JOINT SURGERY NEC Right 12/17/2021 HIP CORE DECOMPRESSION performed by Micky Rodriguez DO at OR [facility] REMOVAL OF APPENDIX age 19 PETER Reid REMOVAL OF NECK LYMPH NODES Right 08/09/2015 SUPRAHYOID LYMPHADENECTOMY performed by Rush Landaverde DO at OR [facility] REMOVAL OF SUBMAXILLARY GLAND Right 08/09/2015 EXCISION SUBMANDIBULAR (SUBMAXILLARY) GLAND performed by Rush Landaverde DO at OR [facility] REMOVE CATARACT, INSERT LENS PROSTH Right 06/27/2014 EXTRACAPSULAR CATARACT REMOVAL WITH INTRAOCULAR LENS performed by Rich Brooks MD at [facility] REMOVE CATARACT, INSERT LENS PROSTH Left 07/22/2022 LEFT EXTRACAPSULAR CATARACT REMOVAL WITH INTRAOCULAR LENS performed by Abilio Hensley DO at [facility] SKIN SPLIT GRAFT, FACE/NECK/EARS Right 08/09/2015 SPLIT GRAFT FACE SCALP ETC LESS THAN 100SQ CM performed by Rush Landaverde DO at OR [facility] Family History Problem Relation Age of Onset Other (anemia) Mother Heart Disorder Father Stroke Grandmother (Paternal) Cancer None Diabetes None Thyroid Disorder None Hypertension None Eye Problems None denies FH: AMD, RD's, GLAUCOMA, BLINDNESS Social History Socioeconomic History Marital status: Spouse name: Not on file Number of children: 2 Years of education: Not on file Highest education level: Not on file Occupational History 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 Employer: [employer] Comment: [employer] Occupation: Retired Tobacco Use Smoking status: Former Packs/day: 0.00 Years: 20.00 Pack years: 0.00 Types: Cigarettes Quit date: 08/07/2015 Years since quittin.2 Smokeless tobacco: Never Vaping Use Vaping Use: Never used Substance and Sexual Activity Alcohol use: Yes Comment: 4-6 beer per day Drug use: No Sexual activity: Yes Partners: Female control/protection: Surgical Other Topics Concern Service No Blood Transfusions Not Asked Caffeine Concern Not Asked Occupational Exposure Not Asked Hobby Hazards Not Asked Sleep Concern Not Asked Stress Concern Not Asked Weight Concern Not Asked Special Diet Not Asked Back Care Not Asked Exercise Not Asked Bike Helmet Not Asked Seat Belt Not Asked Self-Exams Not Asked Social History Narrative Born in [facility]. Living in [facility] since Social Determinants of Health Financial Resource Strain: Not on file Food Insecurity: Not on file Transportation Needs: Not on file Physical Activity: Not on file Stress: Not on file Social Connections: Not on file Intimate Partner Violence: Not on file Housing Stability: Not on file COMPLETE REVIEW OF SYSTEMS: Cardiovascular: Negative for chest pain, shortness of breath, palpitations, angina or VA Neurological: Negative for stroke, TIA, amaurosis fugax GENERAL MULTI-SYSTEM PHYSICAL EXAM: VITAL SIGNS: BP 148/76 (BP Site: Left Arm, BP Position: Sitting, BP Cuff Size: Regular) | Pulse 72 | Temp 36.4 C (97.5 F) (Tympanic) | Wt 114.4 kg (252 lb 4.8 oz) | BMI 32.38 kg/m | BSA 2.44 m GENERAL MULTI-SYSTEM PHYSICAL EXAM:GENERAL: Normal grooming habits, no acute distress and appears stated age. NECK: No masses and Normal Thyroid. RESPIRATORY: respiratory effort normal and breath sounds normal. CARDIOVASCULAR: no heart murmurs, no edema and no varicosities. GASTROINTESTINAL: no tenderness, protuberant and abdominal aorta not palpable. LYMPHATIC: cervical lymph nodes normal and inguinial lymph nodes normal. SKIN: no ulcers, no rash, no induration, capillary refill normal and no dependent rubor.ReducedB/L foot peeling of skin. BLE rubor, L>R (See PHOTOS) PSYCHIATRIC: orientation to time, place and person normal and recent and remote memory normal. EYES: conjunctivae normal, eye lids normal, pupils normal and irises normal. NEUROLOGIC: Cranial nerves intact, Motor function intact and Sensory exam intact 11/18/2022 10/07/22 PULSE SCALE: Carotid Right:----Bruit: No Left:----Bruit: No Radial Right: 3 Left: 3 Femoral Right: 2 Left: 2 Popliteal Right: 0 Left: 0 Dorsalis Pedis Right: 0 strong doppler Left: 0 no doppler Posterior Tibial Right: 0 strong doppler Left: 0 monophasic doppler PULSE SCALE: 4=Aneurysmal; 3=Normal; 2=Diminished; 1=Barely Palpable; 0=Absent DIAGNOSTIC STUDIES: 11/04/22 Exercise RONAN: 0.92/0.42 @ rest; 0.96/0.21@ exercise. Completed 5 mins of study, B/L thigh pain @ 2 mins 11/04/22 CTA w/ runoff:3.4 cm infrarenal AAA w/ thrombus burden, calcifications within CIAs & CFAs, extensive calcifications mid B/L SFAs, R AT and PT are open, R Peron occluded, L AT/PT/Peron open The above diagnostic images were directly visualized and independently interpreted by me on11/18/2022with results as above 09/24/2022 RONAN: 0.93/0.52 09/18/[address]: No ATAA 07/28/2022 Abd Aortic Duplex: Abd aorta 2.6 cm, patent CIAs 02/14/21 Abd Aortic Duplex: Abd aorta 2.6 cm, moderate ilieo fem occlusive disease 08/01/2015 CT Neck: ~ 50% stenosis of LICA, some mild plaques of DEMARIO w/out stenosis LABS: Hemoglobin AIC Results: Lab Results Component Value Date/Time HEMOGLOBIN A1C - [facility] 5.4 07/06/2018 02:04 PM HEMOGLOBIN A1C - [facility] 5.8 10/28/1999 02:13 PM Lab Results Component Value Date/Time CREATININE - [facility] 0.9 10/23/2022 09:02 AM CREATININE - [facility] 1.1 09/15/2022 12:57 PM CREATININE - [facility] 1.0 09/11/2021 03:14 PM CREATININE - [facility] 1.1 03/11/2020 02:05 PM CREATININE - [facility] 1.3 (H) 02/28/2020 01:40 PM CREATININE - [facility] 1.1 08/15/2019 08:15 AM CREATININE, RANDOM URINE - [facility] 73 10/23/2022 09:04 AM CREATININE-OUTSIDE LAB 1.08 02/16/2020 12:00 AM CREATININE-OUTSIDE LAB 0.91 06/19/2015 12:00 AM Lab Results Component Value Date/Time LDL CHOLESTEROL (CALCULATED) - [facility] 115 10/23/2022 09:04 AM LDL CHOLESTEROL (CALCULATED) - [facility] UNINTERPRETABLE RESULT 07/27/2018 09:17 AM LDL CHOLESTEROL (DIRECT MEASURE) - [facility] 102 08/15/2019 08:15 AM LDL CHOLESTEROL (DIRECT MEASURE) - [facility] 89 07/31/2011 07:23 AM The above clinical labs were reviewed by me on11/18/22 IMPRESSIONS: Moderate PAD of LLE, w/out classic claudication, rest pain or ulcerations. ~50% reduced of L RONAN w/ exercise. Extensive LEFT Iliac and Fem disease on CTA 3.4 cm AAA, asymptomatic ~50% LICA stenosis on 2016 CT neck Improved peeling and discolored skin of B/L feet,[facility] by Derm on 10/27/22, diagnosis of tinea pedis, prescribed creams Chronic low back pain with neuropathy, s/p injections B/L hip pain due to AVN, s/p core decompressions by Ortho HLD HTN CAD, H/O post wall VA, remote. S/P stent placements 3 yrs ago @ [facility] and [facility]. S/P stent placement 1996 PLAN: The patient was counseled regarding the pathophysiology and natural history of peripheral vascular disease, as well as the interventional and noninterventional therapeutic options. The patient was counseled regarding the pathophysiology and natural history of carotid disease, as well as the symptoms of CVA/TIA/amaurosis fugax. Continue ASA 81 mg daily for platelet inhibition Continue Zocor 40 and Zetia 10 mg, both daily, for HLD Sign up for Left Fem Endart, Left Iliac Artery Stent Placement on12/24/22 PATlabs today, as well as ECG Will get pre op ECHO Consent done Instructions given, hold ARB on day of OR Case created Pre op orders pended RT01/06/23for incision check RTC01/20/23with Dr. Garcia1 month post op with LLE Art Duplex and ABI1 wk prior to that visit. The patient was seen and examined withMD Micky Hernández PA-C Section of Vascular [place] [address] [phone] I have reviewed the advanced practitioner documentation and agree. I saw and evaluated the patient on date of service referenced in note and have performed the following medically appropriate historyand/or exam: Reports mixed symptoms, but thigh pain is worse on inclines and relieved with rest. Moderate PAD of LLE, w/out classic claudication, rest pain or ulcerations. ~50% reduced of L RONAN w/ exercise. Extensive LEFT Iliac and Fem disease on CTA Reports history of bilateral hip AVN and lower back degenerative disk disease. History of CAD and PCI. Plan to proceed with L FEIS 01/06/2023 Will need to have EKG and updated echo prior to OR The patient was counseled at length regarding the nature of acute limb ischemia and the risks, benefits and alternatives of this surgery. They also understand that a combination of open surgery (including extremity fasciotomies) and endovascular techniques (including thrombectomy and catheter directed thrombolysis) could be utilized. I have discussed with the patient that they are at very high risk for the following anticipated complications due to the patient's co-morbidities including , stroke, wound infection/dehiscence/breakdown, heart attack, respiratory complications, nerve injury, kidney failure requiring dialysis, b leeding requiring transfusions, intracranial bleeding, hemorrhage/thrombosis/aneurysm formation at the site of catheter insertion, urinary tract infection, need for multiple re-operations, graft failu re/thrombosis requiring re-operation, chronic edema or amputation. I have also explained to the patient that other risks of the procedure include, but are not limitedto, radiation injury, allergic reaction to the contrast, stroke, transfusion reaction, infection, nerve damage, or . The patient has had a thorough medical evaluation and management of symptoms as outlined above. The plan is to proceed initially with angiography and then immediate intervention based upon the results of the angiogram. I plan on proceeding with an endovascular procedure, if possible, as the only other alternative would be an invasive open surgical procedure (which the patient understands may still be required). If the lesion(s) are amenable to an endovascular approach, angioplasty will beperformed first for appropriate lesions. Stenting will be performed for lesions known to have a poor result from angioplasty alone and those lesions that demonstrate a poor result post angioplasty. I have also discussed with the patient that they might require treatment with a drug-coated balloonand/or stent. Furthermore, I discussed that these devices may be associated with a potential long-term mortality risk. Based on current data, I have explained to the patient that I believe that the benefits outweigh the risks in patients at high risk for restenosis. The patient understands the seriousness of the situation and informed consent was obtained to proceed with the surgery. Jean Garcia MD Vascular Surgeon Department of Vascular Surgery [facility] Does patient take a beta jamari? Yes - medication: Metoprolol; Anticoagulants / Antiplatelets? Aspirin - Last dose today 12/24/22 This patient has undergone a preprocedural evaluation. A determination has been made to proceed with the planned procedure under [facility] procedural guidelines and the [facility] Non-Emergent, Elective Medical Services and Treatment Recommendations (published on 10-24-19). The community and hospital prevalence of COVID-19 has been discussed as well as this patient's specific risks associated with SARS-CoV-19 infection. Based upon the clinical acuity and patient-specific care considerations, this procedure is deemed a Tier II - Intermediate acuity treatment or service with either progression or the threat of progressive disease related to the delay in treatment. Not providing the service has the potential for increasing morbidity or mortality. 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, T1N0M0 Other specified forms of chronic ischemic heart disease age 41 12/23/1996 angioplasty stent, inferior posterior [place] Personal history of colonic polyps 03/28/2009 adenoma repeat in 1 yr, history of villous adenoma 2007 Personal history of colonic polyps 03/28/2010 polyps--hyperplastic tissue repeat in 2 yrs Personal history of colonic polyps 01/06/2013 normal no polyps, benign mucosa post inferior wall [place] 12/23/1996 PAST SURGICAL HISTORY: Past Surgical History: Procedure Laterality Date CARDIAC ANGIOPLASTY, PERCUTANEOUS, 1 ARTERY Right 03/07/2020 PTCA, CARDIAC ANGIOPLASTY, PERCUTANEOUS, 1 ARTERY performed by Johny Schmidt DO at [facility]AC [facility]S [facility] COLONOSCOPY THRU STOMA, W/BIOPSY 03/28/2010 polyps--hyperplastic tissue repeat in 2 yrs COLONOSCOPY W/ BIOPSY (RECTUM) 03/28/2009 adenoma repeat in 1 yr COLONOSCOPY W/ LESION REMOVAL, SNARE 08/12/2007 villous adenoma, repeat 6 months COLONOSCOPY W/ LESION REMOVAL, SNARE 02/10/2008 repeat in 1 yr COLONOSCOPY, DIAGNOSTIC (RECTUM) 01/06/2013 COLONOSCOPY FLEXIBLE PROXIMAL DIAGNOSTIC performed by Eloy Wilder MD at ENDOSCOPY [facility], NO RESIDUAL POLYP TISSUE REPEAT COLONOSCOPY IN 5 YEARS COLONOSCOPY, DIAGNOSTIC (RECTUM) 01/12/2018 adenomatous & hyperplastic polyps, repeat 5 yrs/COLONOSCOPY FLEXIBLE PROXIMAL DIAGNOSTIC performed by Eloy Wilder MD at ENDOSCOPY [facility] CORONARY ARTERY DILATION, [place] age 41 inferior wall [place] age 41, 1996, angioplasty, stent at [facility] EXCISION OF MOUTH FLOOR LESION Right 08/09/2015 EXCISION LESION FLOOR OF MOUTH performed by Rush Landaverde DO at OR [facility] INFORMATION Right R ankle fx repair w/ hardware. INJECT DX/THER SUBSTANCE INTERLAMINAR LUMBAR/SACRAL W IMAGE GUIDE 05/20/2022 INJECTION SPINE LUMBAR OR SACRAL performed by Samuel Simon DO at OR [facility] INJECT DX/THER SUBSTANCE INTERLAMINAR LUMBAR/SACRAL W IMAGE GUIDE 09/09/2022 INJECTION SPINE LUMBAR OR SACRAL performed by Samuel Simon DO at OR [facility] PELVIS/HIP JOINT SURGERY NEC Left 09/17/2021 UNLISTED PROCEDURE PELVIS OR HIP JOINT performed by Micky Rodriguez DO at OR [facility] PELVIS/HIP JOINT SURGERY NEC Right 12/17/2021 HIP CORE DECOMPRESSION performed by Micky Rodriguez DO at OR [facility] REMOVAL OF APPENDIX age 19 PETER Reid REMOVAL OF NECK LYMPH NODES Right 08/09/2015 SUPRAHYOID LYMPHADENECTOMY performed by Rush Landaverde DO at OR [facility] REMOVAL OF SUBMAXILLARY GLAND Right 08/09/2015 EXCISION SUBMANDIBULAR (SUBMAXILLARY) GLAND performed by Rush Landaverde DO at OR [facility] REMOVE CATARACT, INSERT LENS PROSTH Right 06/27/2014 EXTRACAPSULAR CATARACT REMOVAL WITH INTRAOCULAR LENS performed by Rich Brooks MD at [facility] REMOVE CATARACT, INSERT LENS PROSTH Left 07/22/2022 LEFT EXTRACAPSULAR CATARACT REMOVAL WITH INTRAOCULAR LENS performed by Abilio Hensley DO at [facility] SKIN SPLIT GRAFT, FACE/NECK/EARS Right 08/09/2015 SPLIT GRAFT FACE SCALP ETC LESS THAN 100SQ CM performed by Rush Landaverde DO at OR [facility] SOCIAL HISTORY: Social History Tobacco Use Smoking status: Former Packs/day: 0.00 Years: 20.00 Pack years: 0.00 Types: Cigarettes Quit date: 08/07/2015 Years since quittin.3 Smokeless tobacco: Never Vaping Use Vaping Use: Never used Substance Use Topics Alcohol use: Yes Comment: 4-6 beer per day Drug use: No FAMILY HISTORY: Family History Problem Relation Age of Onset Other (anemia) Mother Heart Disorder Father Stroke Grandmother (Paternal) Cancer None Diabetes None Thyroid Disorder None Hypertension None Eye Problems None denies FH: AMD, RD's, GLAUCOMA, BLINDNESS CURRENT MEDICATIONS: Current Facility-Administered Medications Medication Dose Route Frequency Provider Last Rate Last Admin Acetaminophen (Tylenol) tab 975 mg 975 mg Oral Pre-Op Micky Dejesus PA-C ceFAZolin in dextrose (Ancef) ivpb 2 g 2 g IV Piggyback Pre-Op Micky Dejesus PA-C Gabapentin (Neurontin) cap 100 mg 100 mg Oral Pre-Op Micky Dejesus PA-C isolyte-S pH 7.4 infusion Intravenous Continuous Micky Dejesus PA-C Povidone-Iodine nasal swab 2 Swab Dosing Unit 2 Swab Dosing Unit Nasal Pre- Op Micky Dejesus PA-C traMADol ER (Ultram ER) tab 200 mg 200 mg Oral Pre-Op Micky Dejesus PA-C ALLERGIES: Review of patient's allergies indicates: No Known Allergies REVIEW OF SYSTEMS: General: no recent change in weight, fever, or night sweats Skin: no new lesions, rashes, or pruritus Head: no new headaches or rhinitis Eyes: no recent changes in vision Ears: no recent changes in hearing Cardiac: no chest pain, palpitations, or recent syncope Respiratory: no shortness of breath or cough GI: no nausea or vomiting, no diarrhea or constipation Musculoskeletal: no new joint pain, stiffness, or muscle weakness Psychiatric: no new changes in mood PHYSICAL EXAMINATION: Ht 1.88 m (6' 2") | Wt 114.3 kg (252 lb) | BMI 32.35 kg/m | BSA 2.44 m Constitutional: awake and alert, in no distress CV: regular rate and rhythm without murmurs, rubs, or gallops Pulm: clear to auscultation bilaterally without wheezes, rales, or rhonchi Abdomen: soft, nontender, nondistended HOSPITAL COURSE (focused): The patient was taken to the OR for aortogram and left lower extremity angiogram, and left femoral endarterectomy with pericardial patch angioplasty. The procedure was successful and without significant complication. Following the procedure the patient was admitted for post-operative observation and treatment. Prior to discharge they were tolerating heart healthy diet, ambulating without difficulty, pain was adequately controlled. The patient was deemed medically stable and ready for discharge on 12/25/22, POD 1. Operations & Procedures: 1. Aortogram and left lower extremity angiogram 2. Left femoral endarterectomy with pericardial patch angioplasty Complications: none significant SIGNIFICANT RESULTS: Vital Signs (last recorded): Most Recent Systolic BP: 134 mmHg (12/25/22721) Most Recent Diastolic BP: 64 mmHg (12/25/22721) Pulse: 78 (12/25/22721) Resp: 16 (12/25/22721) Most Recent Temperature: 36.33 C (12/25/22721) Weight: 114.5 kg (252 lb 8 oz) (12/25/22630) SpO2: 96 % (12/25/22721) O2 flow rate: 0 L/MIN (12/25/22721) Labs: CARDIAC: Troponin T (see below for last three most recent values): No results found for: TROPT CHEMISTRY: BUN, Creatinine, GFR Estimated, Sodium, Potassium, Chloride, Carbon Dioxide, Glucose, Calcium (see below for most recent value): Lab Results Component Value Date/Time BUN 11 12/25/2022 06:06 AM BUN 14 03/11/2020 02:05 PM CREAT 0.9 12/25/2022 06:06 AM CREAT 1.1 03/11/2020 02:05 PM GFRESTIMATED >60.0 03/11/2020 02:05 PM NA 137 12/25/2022 06:06 AM NA 140 03/11/2020 02:05 PM POTASSIUM 4.4 12/25/2022 06:06 AM POTASSIUM 4.6 03/11/2020 02:05 PM CL 101 12/25/2022 06:06 AM CL 102 03/11/2020 02:05 PM CO2 25 12/25/2022 06:06 AM CO2 28 03/11/2020 02:05 PM CA 9.2 12/25/2022 06:06 AM CA 10.0 03/11/2020 02:05 PM CREATININE: Creatinine (see below for last three most recent values): Lab Results Component Value Date/Time CREAT 0.9 12/25/2022 06:06 AM CREAT 1.0 12/24/2022 11:36 AM CREAT 0.9 11/18/2022 11:13 AM CREAT 1.1 03/11/2020 02:05 PM CREAT 1.3 (H) 02/28/2020 01:40 PM CREAT 1.08 02/16/2020 12:00 AM CREAT 1.1 08/15/2019 08:15 AM COAGS: PT, INR (see below for three most recent values): Lab Results Component Value Date/Time INR 0.99 02/28/2020 01:40 PM BLOOD COUNT: WBC, Hgb, Platelets (see below for most recent value): Lab Results Component Value Date/Time WBC 12.96 (H) 12/25/2022 06:06 AM WBC 6.78 02/28/2020 01:40 PM HGB 12.4 (L) 12/25/2022 06:06 AM HGB 14.4 02/28/2020 01:40 PM PLT 128 (L) 12/25/2022 06:06 AM PLT 155 02/28/2020 01:40 PM HEMOGLOBIN: Hgb (see below for last three most recent values): Lab Results Component Value Date/Time HGB 12.4 (L) 12/25/2022 06:06 AM HGB 11.7 (L) 12/24/2022 11:36 AM HGB 14.7 11/18/2022 11:13 AM HGB 14.4 02/28/2020 01:40 PM HGB 14.3 02/16/2020 12:00 AM HGB 13.3 (L) 07/11/2018 02:25 PM HGB 14.0 07/06/2018 01:58 PM HEMOGLOBIN A1C: (see below for most recent value): Lab Results Component Value Date/Time HGBA1C 5.4 12/24/2022 11:36 AM HGBA1C 5.4 07/06/2018 02:04 PM Imaging (focused): VASC PROCEDURE IN VASCULAR ANGIO SUITE Final Result This procedure will not be read by a Radiologist. Please see operative note. CONSULTS ORDERED: ADULT OCCUPATIONAL THERAPY CONSULT IP ADULT PHYSICAL THERAPY CONSULT IP BLOOD MANAGEMENT CONSULT IP CARE MANAGEMENT CONSULT IP REFERRING PHYSICIAN: Ref: TRINITY MCKENZIE[[id number]] [address] [place] [address] (office) [phone] (fax) PRIMARY CARE PROVIDER: PCP: Trinity Mckenzie DO [address] / [place] [phone] (office) [phone] (fax) Note: To contact a physician responsible for this patients hospital care, please call [employer] [phone]. documented in this encounter Discharge Instructions * Discharge Instr - AVS* Jairon Anne, DO - 12/25/2022 7:49 AM EDT Discharge Date: 12/25/2022 You may call Carson Garcia MD of the department of Vascular Surgery at the [facility] office in [place] at [phone] option 2. After business hours, you may call with emergency questions to [phone] ask that the on-call Vascular Surgery provider be paged. The information below provides you with the instructions and the list of medications you need to betaking following discharge from the hospital. If you have any questions, please ask before leaving.Please carry this letter with you when you see your doctor in the clinic. If you have questions, you can reach us at the numbers above. Brief summary of your inpatient care: You were taken to the OR for vascular surgery. The procedure was successful and without significantcomplication. Following the procedure you were admitted to the hospital for observation and treatment. Eventually you were deemed medically stable and ready for discharge to home with follow up appointment scheduled 01/06/23. Your primary diagnosis at discharge was peripheral vascular disease. Your doctors during this hospitalization included: Carson Garcia MD Inpatient test results pending: None Complications: none significant Advance Directive Documented: Advance Directive Does the Patient have an Advance Directive? No SUPPLEMENTAL INSTRUCTIONS: You have 1 or more incisions on your leg. A certain amount of swelling is expected and can be improved with elevation of the leg most times of the day when you are sitting or lying. The idea is to elevate your leg on 2-3 pillows while lying flat for at least 1 hour at least 3 times per day. Should you notice significant swelling that does not improve with leg elevation, increased pain, drainage or bleeding from incisions, incision separation, or fever >101 degrees, please contact [phone] to discuss with an advanced practitioner or physician environmental field team member. Disposable negative pressure dressing (Prevena) has been applied to your surgical incision. This incision management system consists of a sponge dressing, held in place with clear adhesive tape, thatis connected to a battery- powered therapy unit. Please leave this dressing in place and connected to the therapy unit device for five (5) days. You can shower with this device without disconnecting it but please avoid direct spray on the sponge and the therapy unit. Also, avoid soaking in water or prolonged water contact. It is best to leave this dressing in place for 5 days or until your next office visit. If you do not have an office visit with vascular surgery within the next five days and you are unable to remove the special dressing at home, please call our office to make an appointment . If your device starts beeping, please remove the sponge dressing by disconnecting itfrom the battery-powered therapy unit and peeling off the clear adhesive tape. If bleeding develops, please seek immediate emergency medical attention. If you experience fevers, and/or increased soreness, redness, swelling, itching, warmth, or if there is pus or a bad odor; call your vascular surgeon right away as your incision may have become infected. You may not drive a car until cleared by your surgeon (usually 1 month) and have stopped taking narcotic pain medicine. You may ride in a car but try to avoid car trips longer than 2 hours for the first month after surgery. You may take a shower and wash over the incision with soap and water. Do not soak the incision (i.e. take a bath) until the incision is completely healed. Any invasive procedure, such as dental work, endoscopy, colonoscopy, cystoscopy, etc. should be avoided in the first 3 months following surgery. If an urgent procedure is required, you should receive prophylactic antibiotics to prevent arterialgraft infection. The [place] [employer] endocarditis prophylaxis regimen may be used for this purpose. See your primary care physician (Trinity Mckenzie DO) within 4 weeks. Special Instructions: Your follow-up appointments with your Vascular Surgeon should be scheduled for 01/06/23 at the vascular surgery clinic at [facility]. For routine questions, your [facility] Vascular Surgery Team prefers the use of [employer] is an online internet tool to help you meet your health care needs quickly by providing a secure, confidential way to view your health records and communicate with your [facility] Vascular SurgeryTeam. To sign up for [employer] go to [email or web address], "Click" [place] Now on the right side o f the screen and complete the user registration information. documented in this encounter H&P Notes * Jairon Anne DO - 12/24/2022 6:11 AM EDT Images from the original note were not included. [facility] Vascular Surgery [facility] [address] [facility] Pre-Operative History and Physical Exam Date of Visit: 12/24/22 Patient Name: Brandan Morgan Date of : 1955 Age: [age] year old HISTORY OF PRESENT ILLNESS: Brandan Morgan is a 67 year old male who presents today for scheduled Left femoral endarterectomy & iliac stent placement. Last clinic visit was on 11/18/22, H&P Listed below. Date of Service: 11/18/2022 9:52 AM Brandan Morgan is a 67 year old male. Patient being seen in consultation at the request of Trinity Mckenzie DO Chief Complaint: Return pt, PAD Since last visit, patient seen by Derm on 10/27/22, diagnosis of tinea pedis, prescribed creams which has lead to improvement in pt's rash Patient continues to have low back pains w/ radiation down both posterior legs. He was able to shopyesterday, at 3 different stores but had to stop due to pain. Continues to be w/out rest pain or ulcerations. present with today's visit. HPI: Reformed smoker who is under care of on site property manager for significant BL foot skin dryness and discoloration due to tinea pedis. Patient being treated with Triamcinolone lotion w/out much improvement. 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 No classic claudication, rest pain or ulcerations. Walking is limited due to his back issues. With that said, patient is able to walk on a treadmill for 10 mins of a time, limited again by his back. When he goes out to shopping, he is able to do better if he supports himself with a chart. No H/O leg vein or artery procedures or surgeries No H/O TIA, stroke or amaurosis fugax Current Outpatient Medications Medication Sig Dispense Refill B Complex Vitamins (B COMPLEX 50) TABS Take by mouth daily . vitamin c (ASCORBIC ACID) 500 MG Tablet Take 1 Tablet by mouth in the morning. Misc. Devices MISC Custom molded extra depth shoes with accommodative inserts - Offloading of right 4th metatarsal head Dx: neuropathic ulceration right foot 1 Each 0 nitroglycerin (NITROSTAT) 0.[address] 1 Tablet under the tongue every 5 minutes as needed. Ezetimibe 10 MG Oral Tablet (Zetia) TAKE 1 TABLET BY MOUTH EVERY DAY IN THE MORNING 90 Tablet 3 Aspirin Low Dose 81 MG Oral Tablet Delayed Release (aspirin enteric coated) TAKE 1 TABLET BY MOUTH EVERY DAY IN THE MORNING 90 Tablet 3 Furosemide 20 MG Oral Tablet (Lasix) TAKE 1-2 TABS PER WEEK DIRECTED 24 Tablet 6 Losartan Potassium 100 MG Oral Tablet (Cozaar) TAKE 1 TABLET BY MOUTH EVERY DAY 90 Tablet 3 Albuterol Sulfate HFA 108 (90 Base) MCG/ACT Inhalation Aerosol Solution Inhale 2 Puffs by mouthevery 6 hours as needed for Wheezing. 18 g 1 Allopurinol 300 MG Oral Tablet (Zyloprim) TAKE 1 TABLET BY MOUTH EVERY DAY 90 Tablet 1 Metoprolol Succinate ER 50 MG Oral Tablet Extended Release 24 Hour (toPROL XL) TAKE 1/2 TABLET BY MOUTH EVERY DAY 45 Tablet 3 Simvastatin 40 MG Oral Tablet (Zocor) TAKE 1 TABLET BY MOUTH EVERY DAY 90 Tablet 1 Econazole Nitrate 1 % External Cream (Spectazole) Apply to feet (on nails and in between toes) 2x weekly as maintenance for tinea pedis 85 g 3 No current facility-administered medications for this visit. Review of patient's allergies indicates: No Known Allergies Patient Active Problem List Diagnosis Code CHR ISCHEMIC HRT DIS NOS I25.9 hypercholesterol E78.1 No advance directive on file Z78.9 History of colonic polyps Z86.010 Gouty arthropathy M10.9 Dyslipidemia, goal LDL below 100 E78.5 Cataract extraction status Z98.49 Chronic venous stasis dermatitis I87.2 S/P angioplasty with stent Z95.820 Coronary artery disease involving coronary bypass graft of [place] heart I25.810 Coronary artery disease of [place] artery of [place] heart with stable angina pectoris (HCC) I25.118 Essential (primary) hypertension I10 Abdominal aortic ectasia (HCC) I77.811 Lung nodule R91.1 Lung fibrosis (HCC) J84.10 Atherosclerosis of [place] coronary artery without angina pectoris I25.10 PVD (peripheral vascular disease) ([facility]) I73.9 Past Medical History: Diagnosis Date Benign neoplasm of colon 01/06/2013 COLONOSCOPY FLEXIBLE PROXIMAL DIAGNOSTIC performed by Eloy Wilder MD at ENDOSCOPY [facility], NO RESIDUAL POLYP TISSUE REPEAT COLONOSCOPY IN 5 YEAR CHR ISCHEMIC HRT DIS NOS 07/05/2002 COVID 12/2020 Gouty arthropathy 01/11/2004 HLD (hyperlipidemia) HTN (hypertension) hypercholesterol 12/23/1996 OA (osteoarthritis) Oral cancer ([facility]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, T1N0M0 Other specified forms of chronic ischemic heart disease age 41 12/23/1996 angioplasty stent, inferior posterior [place] Personal history of colonic polyps 03/28/2009 adenoma repeat in 1 yr, history of villous adenoma 2008 Personal history of colonic polyps 03/28/2010 polyps--hyperplastic tissue repeat in 2 yrs Personal history of colonic polyps 01/06/2013 normal no polyps, benign mucosa post inferior wall [place] 12/23/1996 Past Surgical History: Procedure Laterality Date CARDIAC ANGIOPLASTY, PERCUTANEOUS, 1 ARTERY Right 03/07/2020 PTCA, CARDIAC ANGIOPLASTY, PERCUTANEOUS, 1 ARTERY performed by Johny Schmidt DO at [facility] COLONOSCOPY THRU STOMA, W/BIOPSY 03/28/2010 polyps--hyperplastic tissue repeat in 2 yrs COLONOSCOPY W/ BIOPSY (RECTUM) 03/28/2009 adenoma repeat in 1 yr COLONOSCOPY W/ LESION REMOVAL, SNARE 08/12/2007 villous adenoma, repeat 6 months COLONOSCOPY W/ LESION REMOVAL, SNARE 02/10/2008 repeat in 1 yr COLONOSCOPY, DIAGNOSTIC (RECTUM) 01/06/2013 COLONOSCOPY FLEXIBLE PROXIMAL DIAGNOSTIC performed by Eloy Wilder MD at ENDOSCOPY [facility], NO RESIDUAL POLYP TISSUE REPEAT COLONOSCOPY IN 5 YEARS COLONOSCOPY, DIAGNOSTIC (RECTUM) 01/12/2018 adenomatous & hyperplastic polyps, repeat 5 yrs/COLONOSCOPY FLEXIBLE PROXIMAL DIAGNOSTIC performed by Eloy Wilder MD at ENDOSCOPY [facility] CORONARY ARTERY DILATION, [place] age 41 inferior wall [place] age 411996, angioplasty, stent at [facility] EXCISION OF MOUTH FLOOR LESION Right 08/09/2015 EXCISION LESION FLOOR OF MOUTH performed by Rush Landaverde DO at OR [facility] INFORMATION Right R ankle fx repair w/ hardware. INJECT DX/THER SUBSTANCE INTERLAMINAR LUMBAR/SACRAL W IMAGE GUIDE 05/20/2022 INJECTION SPINE LUMBAR OR SACRAL performed by Samuel Simon DO at OR [facility] INJECT DX/THER SUBSTANCE INTERLAMINAR LUMBAR/SACRAL W IMAGE GUIDE 09/09/2022 INJECTION SPINE LUMBAR OR SACRAL performed by Samuel Simon DO at OR [facility] PELVIS/HIP JOINT SURGERY NEC Left 09/17/2021 UNLISTED PROCEDURE PELVIS OR HIP JOINT performed by Micky Rodriguez DO at OR [facility] PELVIS/HIP JOINT SURGERY NEC Right 12/17/2021 HIP CORE DECOMPRESSION performed by Micky Rodriguez DO at OR [facility] REMOVAL OF APPENDIX age 19 PETER Reid REMOVAL OF NECK LYMPH NODES Right 08/09/2015 SUPRAHYOID LYMPHADENECTOMY performed by Rush Landaverde DO at OR [facility] REMOVAL OF SUBMAXILLARY GLAND Right 08/09/2015 EXCISION SUBMANDIBULAR (SUBMAXILLARY) GLAND performed by Rush Landaverde DO at OR [facility] REMOVE CATARACT, INSERT LENS PROSTH Right 06/27/2014 EXTRACAPSULAR CATARACT REMOVAL WITH INTRAOCULAR LENS performed by Rich Brooks MD at OR [facility] REMOVE CATARACT, INSERT LENS PROSTH Left 07/22/2022 LEFT EXTRACAPSULAR CATARACT REMOVAL WITH INTRAOCULAR LENS performed by Abilio Hensley DO at [facility] SKIN SPLIT GRAFT, FACE/NECK/EARS Right 08/09/2015 SPLIT GRAFT FACE SCALP ETC LESS THAN 100SQ CM performed by Rush Landaverde DO at OR [facility] Family History Problem Relation Age of Onset Other (anemia) Mother Heart Disorder Father Stroke Grandmother (Paternal) Cancer None Diabetes None Thyroid Disorder None Hypertension None Eye Problems None denies FH: AMD, RD's, GLAUCOMA, BLINDNESS Social History Socioeconomic History Marital status: Spouse name: Not on file Number of children: 2 Years of education: Not on file Highest education level: Not on file Occupational History 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 Employer: [employer] Comment: [employer] Occupation: Retired Tobacco Use Smoking status: Former Packs/day: 0.00 Years: 20.00 Pack years: 0.00 Types: Cigarettes Quit date: 08/07/2015 Years since quittin.2 Smokeless tobacco: Never Vaping Use Vaping Use: Never used Substance and Sexual Activity Alcohol use: Yes Comment: 4-6 beer per day Drug use: No Sexual activity: Yes Partners: Female control/protection: Surgical Other Topics Concern Service No Blood Transfusions Not Asked Caffeine Concern Not Asked Occupational Exposure Not Asked Hobby Hazards Not Asked Sleep Concern Not Asked Stress Concern Not Asked Weight Concern Not Asked Special Diet Not Asked Back Care Not Asked Exercise Not Asked Bike Helmet Not Asked Seat Belt Not Asked Self-Exams Not Asked Social History Narrative Born in [facility]. Living in [facility] since Social Determinants of Health Financial Resource Strain: Not on file Food Insecurity: Not on file Transportation Needs: Not on file Physical Activity: Not on file Stress: Not on file Social Connections: Not on file Intimate Partner Violence: Not on file Housing Stability: Not on file COMPLETE REVIEW OF SYSTEMS: Cardiovascular: Negative for chest pain, shortness of breath, palpitations, angina or VA Neurological: Negative for stroke, TIA, amaurosis fugax GENERAL MULTI-SYSTEM PHYSICAL EXAM: VITAL SIGNS: BP 148/76 (BP Site: Left Arm, BP Position: Sitting, BP Cuff Size: Regular) | Pulse 72 | Temp 36.4 C (97.5 F) (Tympanic) | Wt 114.4 kg (252 lb 4.8 oz) | BMI 32.38 kg/m | BSA 2.44 m GENERAL MULTI-SYSTEM PHYSICAL EXAM:GENERAL: Normal grooming habits, no acute distress and appears stated age. NECK: No masses and Normal Thyroid. RESPIRATORY: respiratory effort normal and breath sounds normal. CARDIOVASCULAR: no heart murmurs, no edema and no varicosities. GASTROINTESTINAL: no tenderness, protuberant and abdominal aorta not palpable. LYMPHATIC: cervical lymph nodes normal and inguinial lymph nodes normal. SKIN: no ulcers, no rash, no induration, capillary refill normal and no dependent rubor. Reduced B/L foot peeling of skin. BLE rubor, L>R (See PHOTOS) PSYCHIATRIC: orientation to time, place and person normal and recent and remote memory normal. EYES: conjunctivae normal, eye lids normal, pupils normal and irises normal. NEUROLOGIC: Cranial nerves intact, Motor function intact and Sensory exam intact 11/18/2022 10/07/22 PULSE SCALE: Carotid Right:----Bruit: No Left:----Bruit: No Radial Right: 3 Left: 3 Femoral Right: 2 Left: 2 Popliteal Right: 0 Left: 0 Dorsalis Pedis Right: 0 strong doppler Left: 0 no doppler Posterior Tibial Right: 0 strong doppler Left: 0 monophasic doppler PULSE SCALE: 4=Aneurysmal; 3=Normal; 2=Diminished; 1=Barely Palpable; 0=Absent DIAGNOSTIC STUDIES: 11/04/22 Exercise RONAN: 0.92/0.42 @ rest; 0.96/0.21 @ exercise. Completed 5 mins of study, B/L thigh pain @ 2 mins 11/04/22 CTA w/ runoff: 3.4 cm infrarenal AAA w/ thrombus burden, calcifications within CIAs & CFAs, extensive calcifications mid B/L SFAs, R AT and PT are open, R Peron occluded, L AT/PT/Peron open The above diagnostic images were directly visualized and independently interpreted by me on 11/18/2022 with results as above 09/24/2022 RONAN: 0.93/0.52 09/18/[address]: No ATAA 07/28/2022 Abd Aortic Duplex: Abd aorta 2.6 cm, patent CIAs 02/14/21 Abd Aortic Duplex: Abd aorta 2.6 cm, moderate ilieo fem occlusive disease 08/01/2015 CT Neck: ~ 50% stenosis of LICA, some mild plaques of DEMARIO w/out stenosis LABS: Hemoglobin AIC Results: Lab Results Component Value Date/Time HEMOGLOBIN A1C - [facility] 5.4 07/06/2018 02:04 PM HEMOGLOBIN A1C - [facility] 5.8 10/28/1999 02:13 PM Lab Results Component Value Date/Time CREATININE - [facility] 0.9 10/23/2022 09:02 AM CREATININE - [facility] 1.1 09/15/2022 12:57 PM CREATININE - [facility] 1.0 09/11/2021 03:14 PM CREATININE - [facility] 1.1 03/11/2020 02:05 PM CREATININE - [facility] 1.3 (H) 02/28/2020 01:40 PM CREATININE - [facility] 1.1 08/15/2019 08:15 AM CREATININE, RANDOM URINE - [facility] 73 10/23/2022 09:04 AM CREATININE-OUTSIDE LAB 1.08 02/16/2020 12:00 AM CREATININE-OUTSIDE LAB 0.91 06/19/2015 12:00 AM Lab Results Component Value Date/Time LDL CHOLESTEROL (CALCULATED) - [facility] 115 10/23/2022 09:04 AM LDL CHOLESTEROL (CALCULATED) - [facility] UNINTERPRETABLE RESULT 07/27/2018 09:17 AM LDL CHOLESTEROL (DIRECT MEASURE) - [facility] 102 08/15/2019 08:15 AM LDL CHOLESTEROL (DIRECT MEASURE) - [facility] 89 07/31/2011 07:23 AM The above clinical labs were reviewed by me on 11/18/22 IMPRESSIONS: Moderate PAD of LLE, w/out classic claudication, rest pain or ulcerations. ~50% reduced of L RONAN w/ exercise. Extensive LEFT Iliac and Fem disease on CTA 3.4 cm AAA, asymptomatic ~50% LICA stenosis on 2015 CT neck Improved peeling and discolored skin of B/L feet, had seen Podiatry @ [facility]. Patient seen by Derm on 10/27/22, diagnosis of tinea pedis, prescribed creams Chronic low back pain with neuropathy, s/p injections B/L hip pain due to AVN, s/p core decompressions by Ortho HLD HTN CAD, H/O post wall VA, remote. S/P stent placements 3 yrs ago @ [facility] and [facility]. S/P stent placement 1996 PLAN: The patient was counseled regarding the pathophysiology and natural history of peripheral vascular disease, as well as the interventional and noninterventional therapeutic options. The patient was counseled regarding the pathophysiology and natural history of carotid disease, as well as the symptoms of CVA/TIA/amaurosis fugax. Continue ASA 81 mg daily for platelet inhibition Continue Zocor 40 and Zetia 10 mg, both daily, for HLD Sign up for Left Fem Endart, Left Iliac Artery Stent Placement on 12/24/22 PAT labs today, as well as ECG Will get pre op ECHO Consent done Instructions given, hold ARB on day of OR Case created Pre op orders pended RTC 01/06/23 for incision check RTC 01/20/[address] Garcia 1 month post op with LLE Art Duplex and RONAN 1 wk prior to that visit. The patient was seen and examined with MD Micky Hernández PA-C Section of Vascular [place] [address] [phone] I have reviewed the advanced practitioner documentation and agree. I saw and evaluated the patient on date of service referenced in note and have performed the following medically appropriate historyand/or exam: Reports mixed symptoms, but thigh pain is worse on inclines and relieved with rest. Moderate PAD of LLE, w/out classic claudication, rest pain or ulcerations. ~50% reduced of L RONAN w/ exercise. Extensive LEFT Iliac and Fem disease on CTA Reports history of bilateral hip AVN and lower back degenerative disk disease. History of CAD and PCI. Plan to proceed with L FEIS 01/06/2023 Will need to have EKG and updated echo prior to OR The patient was counseled at length regarding the nature of acute limb ischemia and the risks, benefits and alternatives of this surgery. They also understand that a combination of open surgery (including extremity fasciotomies) and endovascular techniques (including thrombectomy and catheter directed thrombolysis) could be utilized. I have discussed with the patient that they are at very high risk for the following anticipated complications due to the patient's co-morbidities including , stroke, wound infection/dehiscence/breakdown, heart attack, respiratory complications, nerve injury, kidney failure requiring dialysis, b leeding requiring transfusions, intracranial bleeding, hemorrhage/thrombosis/aneurysm formation at the site of catheter insertion, urinary tract infection, need for multiple re-operations, graft failu re/thrombosis requiring re-operation, chronic edema or amputation. I have also explained to the patient that other risks of the procedure include, but are not limitedto, radiation injury, allergic reaction to the contrast, stroke, transfusion reaction, infection, nerve damage, or . The patient has had a thorough medical evaluation and management of symptoms as outlined above. Theplan is to proceed initially with angiography and then immediate intervention based upon the results of the angiogram. I plan on proceeding with an endovascular procedure, if possible, as the only other alternative would be an invasive open surgical procedure (which the patient understands may still be required). If the lesion(s) are amenable to an endovascular approach, angioplasty will be performed first for appropriate lesions. Stenting will be performed for lesions known to have a poor result from angioplasty alone and those lesions that demonstrate a poor result post angioplasty. I have also discussed with the patient that they might require treatment with a drug-coated balloonand/or stent. Furthermore, I discussed that these devices may be associated with a potential long-term mortality risk. Based on current data, I have explained to the patient that I believe that the benefits outweigh the risks in patients at high risk for restenosis. The patient understands the seriousness of the situation and informed consent was obtained to proceed with the surgery. Jean Garcia MD Vascular Surgeon Department of Vascular Surgery [facility] Does patient take a beta jamari? Yes - medication: Metoprolol; Anticoagulants / Antiplatelets? Aspirin - Last dose today 12/24/22 This patient has undergone a preprocedural evaluation. A determination has been made to proceed with the planned procedure under [facility] procedural guidelines and the [facility] Non-Emergent, Elective Medical Services and Treatment Recommendations (published on 10-24-19). The community and hospital prevalence of COVID-19 has been discussed as well as this patient's specific risks associated with SARS-CoV-19 infection. Based upon the clinical acuity and patient-specific care considerations, this procedure is deemed a Tier II - Intermediate acuity treatment or service with either progression or the threat of progressive disease related to the delay in treatment. Not providing the service has the potential for increasing morbidity or mortality. 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, T1N0M0 Other specified forms of chronic ischemic heart disease age 41 12/23/1996 angioplasty stent, inferior posterior VA Personal history of colonic polyps 03/28/2009 adenoma repeat in 1 yr, history of villous adenoma 2007 Personal history of colonic polyps 03/28/2010 polyps--hyperplastic tissue repeat in 2 yrs Personal history of colonic polyps 01/06/2013 normal no polyps, benign mucosa post inferior wall VA 12/23/1996 PAST SURGICAL HISTORY: Past Surgical History: Procedure Laterality Date CARDIAC ANGIOPLASTY, PERCUTANEOUS, 1 ARTERY Right 03/07/2020 PTCA, CARDIAC ANGIOPLASTY, PERCUTANEOUS, 1 ARTERY performed by Johny Schmidt DO at CARDIAC LABS [facility] COLONOSCOPY THRU STOMA, W/BIOPSY 03/28/2010 polyps--hyperplastic tissue repeat in 2 yrs COLONOSCOPY W/ BIOPSY (RECTUM) 03/28/2009 adenoma repeat in 1 yr COLONOSCOPY W/ LESION REMOVAL, SNARE 08/12/2007 villous adenoma, repeat 6 months COLONOSCOPY W/ LESION REMOVAL, SNARE 02/10/2008 repeat in 1 yr COLONOSCOPY, DIAGNOSTIC (RECTUM) 01/06/2013 COLONOSCOPY FLEXIBLE PROXIMAL DIAGNOSTIC performed by Eloy Wilder MD at ENDOSCOPY [facility], NO RESIDUAL POLYP TISSUE REPEAT COLONOSCOPY IN 5 YEARS COLONOSCOPY, DIAGNOSTIC (RECTUM) 01/12/2018 adenomatous & hyperplastic polyps, repeat 5 yrs/COLONOSCOPY FLEXIBLE PROXIMAL DIAGNOSTIC performed by Eloy Wilder MD at ENDOSCOPY [facility] CORONARY ARTERY DILATION, BALLOON age 41 inferior wall [place] age [id number], angioplasty, stent at [facility] EXCISION OF MOUTH FLOOR LESION Right 08/09/2015 EXCISION LESION FLOOR OF MOUTH performed by Rush Landaverde DO at OR [facility] INFORMATION Right R ankle fx repair w/ hardware. INJECT DX/THER SUBSTANCE INTERLAMINAR LUMBAR/SACRAL W IMAGE GUIDE 05/20/2022 INJECTION SPINE LUMBAR OR SACRAL performed by Samuel Simon DO at OR [facility] INJECT DX/THER SUBSTANCE INTERLAMINAR LUMBAR/SACRAL W IMAGE GUIDE 09/09/2022 INJECTION SPINE LUMBAR OR SACRAL performed by Samuel Simon DO at OR [facility] PELVIS/HIP JOINT SURGERY NEC Left 09/17/2021 UNLISTED PROCEDURE PELVIS OR HIP JOINT performed by Micky Rodriguez DO at OR [facility] PELVIS/HIP JOINT SURGERY NEC Right 12/17/2021 HIP CORE DECOMPRESSION performed by Micky Rodriguez DO at OR [facility] REMOVAL OF APPENDIX age 19 PETER Reid REMOVAL OF NECK LYMPH NODES Right 08/09/2015 SUPRAHYOID LYMPHADENECTOMY performed by Rush Landaverde DO at OR [facility] REMOVAL OF SUBMAXILLARY GLAND Right 08/09/2015 EXCISION SUBMANDIBULAR (SUBMAXILLARY) GLAND performed by Rush Landaverde DO at OR [facility] REMOVE CATARACT, INSERT LENS PROSTH Right 06/27/2014 EXTRACAPSULAR CATARACT REMOVAL WITH INTRAOCULAR LENS performed by Rich Brooks MD at OR [facility] REMOVE CATARACT, INSERT LENS PROSTH Left 07/22/2022 LEFT EXTRACAPSULAR CATARACT REMOVAL WITH INTRAOCULAR LENS performed by Abilio Hensley DO at OR [facility] SKIN SPLIT GRAFT, FACE/NECK/EARS Right 08/09/2015 SPLIT GRAFT FACE SCALP ETC LESS THAN 100SQ CM performed by Rush Landaverde DO at OR [facility] SOCIAL HISTORY: Social History Tobacco Use Smoking status: Former Packs/day: 0.00 Years: 20.00 Pack years: 0.00 Types: Cigarettes Quit date: 08/07/2015 Years since quittin.3 Smokeless tobacco: Never Vaping Use Vaping Use: Never used Substance Use Topics Alcohol use: Yes Comment: 4-6 beer per day Drug use: No FAMILY HISTORY: Family History Problem Relation Age of Onset Other (anemia) Mother Heart Disorder Father Stroke Grandmother (Paternal) Cancer None Diabetes None Thyroid Disorder None Hypertension None Eye Problems None denies FH: AMD, RD's, GLAUCOMA, BLINDNESS CURRENT MEDICATIONS: Current Facility-Administered Medications Medication Dose Route Frequency Provider Last Rate Last Admin Acetaminophen (Tylenol) tab 975 mg 975 mg Oral Pre-Op Micky Dejesus PA-C ceFAZolin in dextrose (Ancef) ivpb 2 g 2 g IV Piggyback Pre-Op Micky Dejesus PA-C Gabapentin (Neurontin) cap 100 mg 100 mg Oral Pre-Op Micky Dejesus PA-C isolyte-S pH 7.4 infusion Intravenous Continuous Micky Dejesus PA-C Povidone-Iodine nasal swab 2 Swab Dosing Unit 2 Swab Dosing Unit Nasal Pre- Op Micky Dejesus PA-C traMADol ER (Ultram ER) tab 200 mg 200 mg Oral Pre-Op Micky Dejesus PA-C ALLERGIES: Review of patient's allergies indicates: No Known Allergies REVIEW OF SYSTEMS: General: no recent change in weight, fever, or night sweats Skin: no new lesions, rashes, or pruritus Head: no new headaches or rhinitis Eyes: no recent changes in vision Ears: no recent changes in hearing Cardiac: no chest pain, palpitations, or recent syncope Respiratory: no shortness of breath or cough GI: no nausea or vomiting, no diarrhea or constipation Musculoskeletal: no new joint pain, stiffness, or muscle weakness Psychiatric: no new changes in mood PHYSICAL EXAMINATION: Ht 1.88 m (6' 2") | Wt 114.3 kg (252 lb) | BMI 32.35 kg/m | BSA 2.44 m Constitutional: awake and alert, in no distress CV: regular rate and rhythm without murmurs, rubs, or gallops Pulm: clear to auscultation bilaterally without wheezes, rales, or rhonchi Abdomen: soft, nontender, nondistended IMPRESSION AND PLAN: Brandan Morgan is a 67 year old male who presents with PAD. - To OR today with Dr. Garcia for Left femoral endarterectomy & iliac stent placement - Pre-op Ancef ordered - NPO for surgery - Maintenance IVF - SCDs to be placed in pre-op - Anticipate outpatient surgery This patient was examined and discussed with Dr. Garcia. Jairon Anne, OR [facility], OPERATING ROOM [facility], [place] [address] [address] [facility] [id number] 12/24/22 documented in this encounter Consult Notes * Alannah Manzo, PT - 12/25/2022 10:06 AM EDTAssociated Order(s): ADULT PHYSICAL THERAPY CONSULT IP GENERAL EVALUATION - Physical Therapy [address] [id number] Name: Brandan Morgan Location: [facility] [id number] Date: 12/25/2022 Time: 12:32 PM Brandan Morgan is a/an 67 year old male. Patient Status: Inpatient Insurance: Payor: [facility] [place] Plan: Joe DEY PREFERRED ENHANCED MP-DD Product Type: *No Product type* Patient Seen: at bedside, nursing cleared patient for therapy Patient Identified By: Name, ID Band and Date Diagnosis: PVD (12/25/22 1006) Status of treatment: Discontinue services on evaluation (12/25/22 1006) Orders: PT evaluation and treatment;OOB (12/25/22 1006) Weight Bearing Status: Weight bearing as tolerated (12/25/22 1006) Total Treatment Time--free text: 10 minutes (12/25/22 100) Past Medical History: Past Medical History: Diagnosis Date Benign neoplasm of colon 01/06/2013 COLONOSCOPY FLEXIBLE PROXIMAL DIAGNOSTIC performed by Eloy Wilder MD at ENDOSCOPY [facility], NO RESIDUAL POLYP TISSUE REPEAT COLONOSCOPY IN 5 YEAR CHR ISCHEMIC HRT DIS NOS 07/05/2002 COVID 12/2020 Gouty arthropathy 01/11/2004 HLD (hyperlipidemia) HTN (hypertension) hypercholesterol 12/23/1996 OA (osteoarthritis) 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, T1N0M0 Other specified forms of chronic ischemic heart disease age 41 12/23/1996 angioplasty stent, inferior posterior VA Personal history of colonic polyps 03/28/2009 adenoma repeat in 1 yr, history of villous adenoma 2007 Personal history of colonic polyps 03/28/2010 polyps--hyperplastic tissue repeat in 2 yrs Personal history of colonic polyps 01/06/2013 normal no polyps, benign mucosa post inferior wall VA 12/23/1996 Past Surgical History: Past Surgical History: Procedure Laterality Date CARDIAC ANGIOPLASTY, PERCUTANEOUS, 1 ARTERY Right 03/07/2020 PTCA, CARDIAC ANGIOPLASTY, PERCUTANEOUS, 1 ARTERY performed by Johny Schmidt DO at [facility]AC [facility]S [facility] COLONOSCOPY THRU STOMA, W/BIOPSY 03/28/2010 polyps--hyperplastic tissue repeat in 2 yrs COLONOSCOPY W/ BIOPSY (RECTUM) 03/28/2009 adenoma repeat in 1 yr COLONOSCOPY W/ LESION REMOVAL, SNARE 08/12/2007 villous adenoma, repeat 6 months COLONOSCOPY W/ LESION REMOVAL, SNARE 02/10/2008 repeat in 1 yr COLONOSCOPY, DIAGNOSTIC (RECTUM) 01/06/2013 COLONOSCOPY FLEXIBLE PROXIMAL DIAGNOSTIC performed by Eloy Wilder MD at ENDOSCOPY [facility], NO RESIDUAL POLYP TISSUE REPEAT COLONOSCOPY IN 5 YEARS COLONOSCOPY, DIAGNOSTIC (RECTUM) 01/12/2018 adenomatous & hyperplastic polyps, repeat 5 yrs/COLONOSCOPY FLEXIBLE PROXIMAL DIAGNOSTIC performed by Eloy Wilder MD at ENDOSCOPY [facility] CORONARY ARTERY DILATION, BALLOON age 41 inferior wall [place] age 41, 1996, angioplasty, stent at [facility] ENDART COMMON FEMORAL Left 12/24/2022 COMMON FEMORAL ENDARTERECTOMY performed by Jean Garcia MD at OR [facility] EXCISION OF MOUTH FLOOR LESION Right 08/09/2015 EXCISION LESION FLOOR OF MOUTH performed by Rush Landaverde DO at OR [facility] ILIAC ART. REVASC W/ STENT+ANGIOPLASTY Left 12/24/2022 ILIAC ARTERY REVASC W/ STENT+ANGIOPLASTY performed by Jean Garcia MD at OR [facility] INFORMATION Right R ankle fx repair w/ hardware. INJECT DX/THER SUBSTANCE INTERLAMINAR LUMBAR/SACRAL W IMAGE GUIDE 05/20/2022 INJECTION SPINE LUMBAR OR SACRAL performed by Samuel Simon DO at OR [facility] INJECT DX/THER SUBSTANCE INTERLAMINAR LUMBAR/SACRAL W IMAGE GUIDE 09/09/2022 INJECTION SPINE LUMBAR OR SACRAL performed by Samuel Simon DO at OR [facility] IR ARTERIOGRAM EXTREMITY UNILATERAL Left 12/24/2022 IMAGING SUPERVISION & INTERPRETATION EXTREMITY UNILATERAL performed by Jean Garcia MD atOR [facility] PELVIS/HIP JOINT SURGERY NEC Left 09/17/2021 UNLISTED PROCEDURE PELVIS OR HIP JOINT performed by Micky Rodriguez DO at OR [facility] PELVIS/HIP JOINT SURGERY NEC Right 12/17/2021 HIP CORE DECOMPRESSION performed by Micky Rodriguez DO at OR [facility] REMOVAL OF APPENDIX age 19 PETER Reid REMOVAL OF NECK LYMPH NODES Right 08/09/2015 SUPRAHYOID LYMPHADENECTOMY performed by Rush Landaverde DO at OR [facility] REMOVAL OF SUBMAXILLARY GLAND Right 08/09/2015 EXCISION SUBMANDIBULAR (SUBMAXILLARY) GLAND performed by Rush Landaverde DO at OR [facility] REMOVE CATARACT, INSERT LENS PROSTH Right 06/27/2014 EXTRACAPSULAR CATARACT REMOVAL WITH INTRAOCULAR LENS performed by Rich Brooks MD at OR [facility] REMOVE CATARACT, INSERT LENS PROSTH Left 07/22/2022 LEFT EXTRACAPSULAR CATARACT REMOVAL WITH INTRAOCULAR LENS performed by Abilio Hensley DO at OR [facility] SKIN SPLIT GRAFT, FACE/NECK/EARS Right 08/09/2015 SPLIT GRAFT FACE SCALP ETC LESS THAN 100SQ CM performed by Rush Landaverde DO at OR [facility] Subjective: Patient standing in bathroom performing self care upon PT arrival. Alert and agreeable to therapy. Social History/Disposition Lives with: Spouse;Family (12/25/221005) Assistance available: Yes (12/25/221005) Dwelling type: Single story home (12/25/221005) Entry steps: Ramp (12/25/221005) Inside steps: None (12/25/221005) Bedroom location: 1st floor (12/25/221005) Bath location: 1st floor full bath (12/25/221005) Prior Level of Function Reported by: Patient (12/25/221005) Ambulation: Ambulatory without device (12/25/221005) Devices at home: Rolling walker;Straight cane;Crutches (12/25/221005) Observations Consciousness: Alert (12/25/221005) Orientation: Oriented times 4 (12/25/221005) Psychosocial: Patient can communicate basic needs;Patient can converse in a social setting (12/25/221005) Other Findings: No (12/25/221005) Sitting Posture: Forward head;Rounded shoulders (12/25/221005) Standing Posture: Forward head;Rounded shoulders (12/25/221005) Pain: No complaints of pain Range of Motion Range of Motion: WNL (12/25/221005) Strength Assessment Strength Assessment: WNL (4+/5 B/ L LE) (12/25/221005) Transfers Sit-Stand: Independent (12/25/221005) Stand-Sit: Independent (12/25/221005) Ambulation: Distance ambulated (feet): 250' Assistive Device: No device Assist: Independent Balance Sit (Static): Good (12/25/221005) Sit (Dynamic): Good (12/25/221005) Stand (Static): Good (12/25/221005) Stand (Dynamic): Good (12/25/221005) Patient and or Family Goal(s): to get well and to return home Patient Education Review of Precautions: Safety;Fall (Role of PT) (12/25/221005) Safety Awareness: Patient verbalizes insight of current deficits;Patient demonstrates carryover of insight during functional tasks;Patient can communicate basic needs (12/25/221005) Preferred learning method: Combination (12/25/221005) Barriers to learning: Medical Status (12/25/221005) Method of Education: Verbalized to patient;Demonstrated to patient (12/25/221005) Topic of Education: Safety with mobility, Goals/plan of care and Fall prevention Method of Education: Verbal discussion and explanation provided to patient: verbalized understanding and or agreement of this information and demonstrated the exercise and or task Demonstrated the above task to patient: verbalized understanding and or agreement of this information and demonstrated the exercise and or task Treatment Provided: Evaluation Low Complexity 10 minutes - 80126: Patient was cooperative and pleasant during treatment session. Low complexity evaluation performed with indication of no personal factors or comorbidities that impact plan of care. Patient presents with no limitations. Alarm Status Patient positioned in: Chair (12/25/221005) With: Pressure pad alarm intact and functioning and call bryan in reach (12/25/221005) Following session patient seated OOB in chair with chair alarm activated and cord plugged into callbell system. Treatment Status: Treatment at bedside (12/25/221005) Assessment: Pt is a 67 year old male presenting with PVD s/p L femoral endarterectomy on 12/24. Pt was seen on this date for initial physical therapy evaluation. Patient reported no pain. Prior to admission, pt reported living in one story (no steps to enter) with his and son, who are able to assist. Pt reports ambulating independently with no assistive device. During session pt was pleasant. Upon initial evaluation patient performed sit to stand independently and ambulated 250' independently. Following session pt positioned in chair with alarm set and call bryan within reach. Pt is presenting with no deficits. At this time further physical therapy services are not recommended due to patient's currently functional mobility status. Patient is safe to return home. All needs met. Equipment Needs: Equipment needs: No device (12/25/221005) Treatment Plan: Discontinue from Physical Therapy Services AM PAC Score with Stairs: 24 A portion of this AM-PAC assessment not scored based on functional assessment; rather clinical decision making utilized based on current findings and/or prior level of function. Please refer to future AM-PAC calculations of functional ability as they become available. * ALEXANDRE Macario/Daja - 12/25/2022 9:55 AM EDTAssociated Order(s): ADULT OCCUPATIONAL THERAPY CONSULT IP GENERAL EVALUATION - Occupational Therapy [address] [address] Name: Brandan Morgan [place]: [facility] [id number] Date: 12/25/2022 Time: 9:55 AM Brandan Morgan is a 67 year old male. Patient Status: Inpatient Insurance: Payor: [facility] Plan: [facility] [place] PREFERRED ENHANCED MP-DD Product Type: *No Product type* Patient Seen: at bedside, nursing cleared patient for therapy Patient Identified By: Name, ID Band and Date Diagnosis: PVD (peripheral vascular disease) ([facility]) (12/25/221005) Status of treatment: Evaluation completed (12/25/221005) Orders: OT evaluation and treatment;OT OOB (12/25/221005) Weight Bearing Status: Weight bearing as tolerated (12/25/221005) Precautions: Safety (12/25/221005) Total Treatment Time: 10 (12/25/221005) Past Medical History: Past Medical History: Diagnosis Date Benign neoplasm of colon 01/06/2013 COLONOSCOPY FLEXIBLE PROXIMAL DIAGNOSTIC performed by Eloy Wilder MD at [facility], NO RESIDUAL POLYP TISSUE REPEAT COLONOSCOPY IN 5 YEAR CHR ISCHEMIC HRT DIS NOS 07/05/2002 COVID 12/2020 Gouty arthropathy 01/11/2004 HLD (hyperlipidemia) HTN (hypertension) hypercholesterol 12/23/1996 OA (osteoarthritis) 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, T1N0M0 Other specified forms of chronic ischemic heart disease age 41 12/23/1996 angioplasty stent, inferior posterior [place] Personal history of colonic polyps 03/28/2009 adenoma repeat in 1 yr, history of villous adenoma 2007 Personal history of colonic polyps 03/28/2010 polyps--hyperplastic tissue repeat in 2 yrs Personal history of colonic polyps 01/06/2013 normal no polyps, benign mucosa post inferior wall [place] 12/23/1996 Past Surgical History: Past Surgical History: Procedure Laterality Date CARDIAC ANGIOPLASTY, PERCUTANEOUS, 1 ARTERY Right 03/07/2020 PTCA, CARDIAC ANGIOPLASTY, PERCUTANEOUS, 1 ARTERY performed by Johny Schmidt DO at [facility] COLONOSCOPY THRU STOMA, W/BIOPSY 03/28/2010 polyps--hyperplastic tissue repeat in 2 yrs COLONOSCOPY W/ BIOPSY (RECTUM) 03/28/2009 adenoma repeat in 1 yr COLONOSCOPY W/ LESION REMOVAL, SNARE 08/12/2007 villous adenoma, repeat 6 months COLONOSCOPY W/ LESION REMOVAL, SNARE 02/10/2008 repeat in 1 yr COLONOSCOPY, DIAGNOSTIC (RECTUM) 01/06/2013 COLONOSCOPY FLEXIBLE PROXIMAL DIAGNOSTIC performed by Eloy Wilder MD at ENDOSCOPY [facility], NO RESIDUAL POLYP TISSUE REPEAT COLONOSCOPY IN 5 YEARS COLONOSCOPY, DIAGNOSTIC (RECTUM) 01/12/2018 adenomatous & hyperplastic polyps, repeat 5 yrs/COLONOSCOPY FLEXIBLE PROXIMAL DIAGNOSTIC performed by Eloy Wilder MD at ENDOSCOPY [facility] CORONARY ARTERY DILATION, BALLOON age 41 inferior wall [place] age [id number], angioplasty, stent at [facility] ENDART COMMON FEMORAL Left 12/24/2022 COMMON FEMORAL ENDARTERECTOMY performed by Jean Garcia MD at OR [facility] EXCISION OF MOUTH FLOOR LESION Right 08/09/2015 EXCISION LESION FLOOR OF MOUTH performed by Rush Landaverde DO at OR [facility] ILIAC ART. REVASC W/ STENT+ANGIOPLASTY Left 12/24/2022 ILIAC ARTERY REVASC W/ STENT+ANGIOPLASTY performed by Jean Garcia MD at OR [facility] INFORMATION Right R ankle fx repair w/ hardware. INJECT DX/THER SUBSTANCE INTERLAMINAR LUMBAR/SACRAL W IMAGE GUIDE 05/20/2022 INJECTION SPINE LUMBAR OR SACRAL performed by Samuel Simon DO at OR [facility] INJECT DX/THER SUBSTANCE INTERLAMINAR LUMBAR/SACRAL W IMAGE GUIDE 09/09/2022 INJECTION SPINE LUMBAR OR SACRAL performed by Samuel Simon DO at OR [facility] IR ARTERIOGRAM EXTREMITY UNILATERAL Left 12/24/2022 IMAGING SUPERVISION & INTERPRETATION EXTREMITY UNILATERAL performed by Jean Garcia MD [facility] PELVIS/HIP JOINT SURGERY NEC Left 09/17/2021 UNLISTED PROCEDURE PELVIS OR HIP JOINT performed by Micky Rodriguez DO at OR [facility] PELVIS/HIP JOINT SURGERY NEC Right 12/17/2021 HIP CORE DECOMPRESSION performed by Micky Rodriguez DO at OR [facility] REMOVAL OF APPENDIX age 19 PETER Reid REMOVAL OF NECK LYMPH NODES Right 08/09/2015 SUPRAHYOID LYMPHADENECTOMY performed by Rush Landaverde DO at [facility] REMOVAL OF SUBMAXILLARY GLAND Right 08/09/2015 EXCISION SUBMANDIBULAR (SUBMAXILLARY) GLAND performed by Rush Landaverde DO at OR [facility] REMOVE CATARACT, INSERT LENS PROSTH Right 06/27/2014 EXTRACAPSULAR CATARACT REMOVAL WITH INTRAOCULAR LENS performed by Rich Brooks MD at OR [facility] REMOVE CATARACT, INSERT LENS PROSTH Left 07/22/2022 LEFT EXTRACAPSULAR CATARACT REMOVAL WITH INTRAOCULAR LENS performed by Abilio Hensley DO at OR [facility] SKIN SPLIT GRAFT, FACE/NECK/EARS Right 08/09/2015 SPLIT GRAFT FACE SCALP ETC LESS THAN 100SQ CM performed by Rush Landaverde DO at OR [facility] Social History/Disposition Lives with: Spouse;Family (12/25/22 100) Assistance available: Yes (12/25/22 100) Dwelling type: Single story home (12/25/22 1006) Entry steps: Ramp (12/25/22 100) Inside steps: None (12/25/22 100) Bedroom location: 1st floor (12/25/22 100) Bath location: 1st floor full bath (12/25/22 100) Prior Level of Function Reported by: Patient (12/25/22 1006) Ambulation: Ambulatory without device (12/25/22 1005) Grooming: Independent (12/25/221005) Bathing: Independent (12/25/221005) Dressing: Independent (12/25/221005) Feeding: Independent (12/25/221005) Toileting: Independent (12/25/221005) Meal Prep: Independent (12/25/221005) Homemaking: Independent (12/25/221005) Shopping: Independent (12/25/221005) Medication Management: Independent (12/25/221005) Money Management: Independent (12/25/221005) Driving: Yes (12/25/221005) Subjective: Pt pleasant and cooperative throughout session. Pain: No complaints of pain Observations Consciousness: Alert;Eyes open (12/25/221005) Orientation: Oriented times 4 (12/25/221005) Psychosocial: Patient can communicate basic needs;Patient can converse in a social setting (12/25/221005) Sitting posture: Forward head;Rounded shoulders (12/25/221005) Standing posture: Forward head;Rounded shoulders (12/25/221005) Safety awareness: The Patient verbalizes insight of current deficits.;The Patient demonstrates carryover of insight during functional tasks.;The Patient can communicate basic needs. (12/25/221005) Other Findings Endurance: Sitting tolerance;Standing tolerance;Functional activity;Good (12/25/221005) Light touch sensation: LUE;RUE;Intact (12/25/221005) Coordination: LUE;RUE;Intact (12/25/221005) Current Functional Status: Bilateral Upper Extremity Hand Dominance: Right (12/25/221005) Range of Motion: WNL (12/25/221005) Strength Assessment: WNL (12/25/221005) Self Care Able to provide self care: Yes (12/25/221005) Grooming: Modified Independent (12/25/221005) Toileting: Independent (12/25/221005) Dressing Upper Body: Independent (12/25/221005) Lower Body: Independent (12/25/221005) Functional Ambulation Assistive Device: No device (12/25/221005) Distance in feet:: 50 (12/25/221005) Level of Assistance: Independent (12/25/221005) Bed Mobility Supine-Sit: Independent (12/25/221005) Sit-Supine: Independent (12/25/221005) OT Transfers Sit-Stand: Independent (12/25/221005) Stand-Sit: Independent (12/25/221005) Bed-Chair: Independent (12/25/221005) Balance Sit (Static): Good (12/25/221005) Sit (Dynamic): Good (12/25/221005) Stand (Static): Good (12/25/221005) Stand (Dynamic): Good (12/25/221005) Alarm Status Patient positioned in: Chair (12/25/221005) With: Call bryan in reach (12/25/221005) Patient and Family Goals: to get well and to return home Patient Education Education Topic: Role of OT;Plan of care goals (12/25/221005) Review of Precautions: Safety (12/25/221005) Education Provided to: Patient (12/25/221005) Response to Education: Receptive and agreeable to education (12/25/221005) Barriers to learning: None (12/25/221005) Preferred learning method: Combination (12/25/221005) Treatment Provided: Evaluation Low Complexity 10 minutes - 66823: Patient was cooperative and pleasant during treatment session. Low complexity evaluation performed and no deficits were identified that result in activity limitation. The patient does not have any comorbidities that affect occupational performance. There were no modifications necessary to complete the evaluation. Assessment: Pt completed functional mobility tasks including transfers and ambulation and ADL taskswith I and no use of AD. Would consider home with post- acute care services which may include outpatient therapy or home health. The level of care will be determined in collaboration with the patient, family/caregiver, and care team members. Treatment Plan: Discontinue Occupational Therapy services AM-PAC Help From Another Person Eating Meals: None (12/25/221005) Help From Another Person Taking Care of Personal Grooming: None (12/25/221005) Help From Another Person To Put On/Take Off Upper Body Clothing: None (12/25/221005) Help From Another Person To Put On/Take Off Lower Body Clothing: None (12/25/221005) Help From Another Person Toileting: None (12/25/221005) Help From Another Person Bathing: None (12/25/221005) OT AM-PAC Score: 24 (12/25/221005) OT AM-PAC t-Scale Score: 57.54 (12/25/221005) HLM (Highest Level of Mobility) Goal: Level 8 walk 250 feet or more (12/25/221005) A portion of this AM-PAC assessment not scored based on functional assessment due to full ADL's notassessed; rather clinical decision making utilized based on current findings and/or prior level of function. Please refer to future AM-PAC calculations of functional ability as they become available. Treatment time: * Selene Apple RN - 12/25/2022 8:49 AM EDTAssociated Order(s): CARE MANAGEMENT CONSULT IP Chart reviewed. Patient discussed with Nursing and patient. No Care Management needs identified at this time. Care Management will continue to follow. * Ranulfo Ridley RN - 12/24/2022 1:26 PM EDTAssociated Order(s): BLOOD MANAGEMENT CONSULT IP REQUESTING SERVICE: [facility] Vascular surgery REASON FOR CONSULT: new evaluation inpatient, s/p left femoral endarterectomy Latest Reference Range & Units 11/18/22 11:13 12/24/22 11:36 HGB 14.0 - 16.8 g/dL 14.7 11.7 (L) HCT 40.0 - 48.4 % 43.4 35.6 (L) (L): Data is abnormally low Recommend: vitamin daily x 2 months on D/C for ABLA. If HGB trends < 10 while admitted with no concern for infection, recommend: Venofer 300mg IVPB daily x 2 days B12 1mg daily Folic acid 1mg daily If no active hemorrhage, consider PRBC transfusion only for severe anemia and use a 1 unit PRBC dose followed by a repeat clinical assessment. For reversal of anticoagulation therapy, use Reversal of Anticoagulation order set. Please recommend outpatient follow up that includes repeat assessment of hemoglobin when stable fordischarge. Please call with questions. Thank you for allowing Blood Management to participate in the care of this patient. documented in this encounter Nursing Notes * Britt Chapman RN - 12/25/2022 10:40 AM EDT NURSING DISCHARGE PROGRESS NOTE [address] [address] Name: Brandan Morgan Location: [address] Date: 12/25/2022 Time: 10:40 AM FUNCTIONAL INDEPENDENCE MEASURE (must be completed for all patients on discharge): Feedin = Complete independence Locomotion: 4 = Complete independence Expression: 4 = Complete independence Transfer Mobility: 4 = Complete independence Social Interaction: 4 = Complete independence Destination: Home OXYGENATION: Discharged with O2: No PATIENT DEVICES: wound vac * Kay Ovalle RN - 12/24/2022 4:00 PM EDT Dual Licensed Skin Assessment completed by Charleen Ovalle and Meera Baez . The patient is/has a N/A Skin Breakdown (includes non blanchable erythema): Yes - Surgical/Procedural changes only. ; open abrasion/cut on outer LLE * ROSA Augustin - 12/24/2022 3:34 PM EDT Post Anesthesia Care Unit Transport Note [address] [address] Dept. Brandan Morgan Transported from PeriOp to : [facility] Time: 1527 Care of patient transferred to: Kay BEST Transported via: Bed Belongings with Patient: YES Pulse : 69 Temp : 97.9F BP : 141/69 Respirations : 20 Pulse Ox : 93 O2 : room air SCDS: On but not activated/no machine * Micky Baez RN - 12/24/2022 2:24 PM EDT PERIOP TO IP HANDOFF COMMUNICATION NOTE [facility] [address] Name: Brandan Morgan AGE: [age] year old Location: OR [facility] Date: 12/24/2022 Attention to: KAY OVALLE RN Report from: Micky Baez RN Patient arriving via: Bed Time of call: 2:24 PM Phone Ext: TIGER TEXT Reason for SBAR (Situation, Background, Assessment, Recommendation) handoff: Admission Sending to: [id number] Emotional/Personal Events & Special Needs: NA Prescriptions in chart: No Code Status: Full Code Discussion of adv directives occurred with - adult: Not Discussed due to patient's condition Safety Concerns: no safety concerns identified Allergies: Patient has no known allergies. 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, T1N0M0 Other specified forms of chronic ischemic heart disease age 41 12/23/1996 angioplasty stent, inferior posterior [place] Personal history of colonic polyps 03/28/2009 adenoma repeat in 1 yr, history of villous adenoma 2007 Personal history of colonic polyps 03/28/2010 polyps--hyperplastic tissue repeat in 2 yrs Personal history of colonic polyps 01/06/2013 normal no polyps, benign mucosa post inferior wall [place] 12/23/1996 PSH: Past Surgical History: Procedure Laterality Date CARDIAC ANGIOPLASTY, PERCUTANEOUS, 1 ARTERY Right 03/07/2020 PTCA, CARDIAC ANGIOPLASTY, PERCUTANEOUS, 1 ARTERY performed by Johny Schmidt DO at [facility] COLONOSCOPY THRU STOMA, W/BIOPSY 03/28/2010 polyps--hyperplastic tissue repeat in 2 yrs COLONOSCOPY W/ BIOPSY (RECTUM) 03/28/2009 adenoma repeat in 1 yr COLONOSCOPY W/ LESION REMOVAL, SNARE 08/12/2007 villous adenoma, repeat 6 months COLONOSCOPY W/ LESION REMOVAL, SNARE 02/10/2008 repeat in 1 yr COLONOSCOPY, DIAGNOSTIC (RECTUM) 01/06/2013 COLONOSCOPY FLEXIBLE PROXIMAL DIAGNOSTIC performed by Eloy Wilder MD at ENDOSCOPY [facility], NO RESIDUAL POLYP TISSUE REPEAT COLONOSCOPY IN 5 YEARS COLONOSCOPY, DIAGNOSTIC (RECTUM) 01/12/2018 adenomatous & hyperplastic polyps, repeat 5 yrs/COLONOSCOPY FLEXIBLE PROXIMAL DIAGNOSTIC performed by Eloy Wilder MD at ENDOSCOPY [facility] CORONARY ARTERY DILATION, [place] age 41 inferior wall [place] age 41, 1996, angioplasty, stent at [facility] EXCISION OF MOUTH FLOOR LESION Right 08/09/2015 EXCISION LESION FLOOR OF MOUTH performed by Rush Landaverde DO at OR [facility] INFORMATION Right R ankle fx repair w/ hardware. INJECT DX/THER SUBSTANCE INTERLAMINAR LUMBAR/SACRAL W IMAGE GUIDE 05/20/2022 INJECTION SPINE LUMBAR OR SACRAL performed by Samuel Simon DO at OR [facility] INJECT DX/THER SUBSTANCE INTERLAMINAR LUMBAR/SACRAL W IMAGE GUIDE 09/09/2022 INJECTION SPINE LUMBAR OR SACRAL performed by Samuel Simon DO at [facility] PELVIS/HIP JOINT SURGERY NEC Left 09/17/2021 UNLISTED PROCEDURE PELVIS OR HIP JOINT performed by Micky Rodriguez DO at OR [facility] PELVIS/HIP JOINT SURGERY NEC Right 12/17/2021 HIP CORE DECOMPRESSION performed by Micky Rodriguez DO at OR [facility] REMOVAL OF APPENDIX age 19 PETER Reid REMOVAL OF NECK LYMPH NODES Right 08/09/2015 SUPRAHYOID LYMPHADENECTOMY performed by Rush Landaverde DO at OR [facility] REMOVAL OF SUBMAXILLARY GLAND Right 08/09/2015 EXCISION SUBMANDIBULAR (SUBMAXILLARY) GLAND performed by Rush Landaverde DO at OR [facility] REMOVE CATARACT, INSERT LENS PROSTH Right 06/27/2014 EXTRACAPSULAR CATARACT REMOVAL WITH INTRAOCULAR LENS performed by Rich Brooks MD at [facility] REMOVE CATARACT, INSERT LENS PROSTH Left 07/22/2022 LEFT EXTRACAPSULAR CATARACT REMOVAL WITH INTRAOCULAR LENS performed by Abilio Hensley DO at OR [facility] SKIN SPLIT GRAFT, FACE/NECK/EARS Right 08/09/2015 SPLIT GRAFT FACE SCALP ETC LESS THAN 100SQ CM performed by Rush Landaverde DO at OR [facility] Isolation: Isolation: Procedure: LEFT FEMORAL ENDARECTOMY Type of Anesthesia: General endotracheal anesthesia Block: NA IV intake: 2200 mL EBL: OR: 500 mL PACU: 0 mL Urine output: OR 350 mL PACU 600 mL IUBC (Ocampo): Incision location: LEFT GROIN Dressing location: LEFT GROIN PROVENA VAC Time of last skin assessment: 1400 Pressure injuries or areas of concern: NA Lines: Urethral Catheter Coude (Active) Site Assessment Skin intact 12/24/22 1106 Securement Method Securing device (Describe) 12/24/22 1106 Catheter secured to leg? Yes 12/24/22 1106 Catheter bag below bladder? Yes 12/24/22 1106 Has IUBC been removed? (If yes, ensure the order is discontinued.) No, perioperative, or scheduled for return to OR within 48 hrs 12/24/22 1106 IUBC Tubing Disconnected This Shift? No 12/24/22 1106 Output (mL) 100 mL 12/24/22 1135 Number of days: 0 Peripheral Line Left;Posterior Wrist (Active) Status Capped/Locked 12/24/22 1135 Tubing Changed N/A 12/24/22 1135 Phlebitis Scale 0 12/24/22 1135 Infiltration Scale 0 12/24/22 1135 Site Description (Other) Without redness, swelling or drainage 12/24/22 1135 Site Intervention Flushed 12/24/22 1135 Dressing Assessment Dressing clean, dry, and intact;Transparent dressing 12/24/22 1135 Dressing Intervention None required 12/24/22 1135 Number of days: 0 Peripheral Line Right Metacarpal 18 Gauge (Active) Status Flushes easily;Fluids infusing 12/24/22 1135 Tubing Changed No 12/24/22 1135 Phlebitis Scale 0 12/24/22 1135 Infiltration Scale 0 12/24/22 1135 Site Description (Other) Without redness, swelling or drainage 12/24/22 1135 Site Intervention Flushed 12/24/22 1135 Dressing Assessment Dressing clean, dry, and intact 12/24/22 1135 Dressing Intervention None required 06/08/23 1135 Number of days: 0 Vital Signs: BP: 138/70 (12/24/22 1400) Temp: 36.1 C (97 F) (12/24/221134) Pulse: 67 (12/24/221399) Resp: 20 (12/24/221399) SpO2: 99 % (12/24/221399) O2 flow rate: 0 L/MIN (12/24/221399) Glucose (Bedside): 126 (12/24/22 1203) Time of last pain medication: 1207 Med: TYLENOL Time of last antibiotic: 0735 Med: ANCEF Time of last antiemetic: 1006 Med: ZOFRAN INSTRUCTIONAL DESIGN MANAGER: no Drips: no Neurological: Speech: Clear (12/24/22699) Level of Consciousness: Alert (12/24/221134) RUE Motor Strength: 5-Active movement with full resistance (12/24/221134) RLE Motor Strength: 5-Active movement with full resistance (12/24/221134) LUE Motor Strength: 5-Active movement with full resistance (12/24/221134) LLE Motor Strength: 5-Active movement with full resistance (12/24/221134) Coma Score: 15 (12/24/221399) Respiratory: Respiratory WNL: X- Exceptions to WNL (12/24/221134) Cough: None (12/24/22699) Depth/Rhythm: Regular (12/24/22699) Dyspnea Occurance: None (12/24/22699) Effort: Unlabored (12/24/22699) Oxygen therapy/ Mechanical vent O2 flow rate: 0 L/MIN (12/24/221399) Supplemental O2 Delivery: Room Air, None (12/24/221399) Cardiac: Observation WNL: WNL except for items charted below (12/24/221134) Heart Sounds: S1;S2 (12/24/22699) Rhythm: NSR (12/24/221134) Extremities: +Sensation;Left;Right;Upper;Lower;[place];Warm (diminished sensation BLE) (12/24/221134) Pulses Right: Dorsalis Pedis + (12/24/221134) Pulses Left: Dorsalis Pedis + (06/08/23 1135) Edema: No (12/24/22 1135) Capillary Refill: 2 sec (12/24/22 113) GI: Observation WNL: Yes (12/24/22 113) : Observational WNL: WNL except for items charted below (12/24/22 113) Urine Description: Clear;Yellow (12/24/22 113) Urethral Catheter Coude (Active) Site Assessment Skin intact 12/24/22 110 Securement Method Securing device (Describe) 12/24/22 110 Catheter secured to leg? Yes 12/24/22 110 Catheter bag below bladder? Yes 12/24/22 110 Has IUBC been removed? (If yes, ensure the order is discontinued.) No, perioperative, or scheduled for return to OR within 48 hrs 12/24/22 110 IUBC Tubing Disconnected This Shift? No 12/24/22 110 Output (mL) 100 mL 12/24/221134 Number of days: 0 Due to Void: OCAMPO Integumentary:Observation WNL: WNL except for items charted below (12/24/22 113) Skin Description: Dry;Warm (12/24/22 1104) Skin Color: Flesh Tone;Mucus Membranes [place];Nail beds pink;Yuriy (LE yuriy) (12/24/22 0700) Skin Lesion: Other - Describe (see below) (12/24/22 113) Environment / Interventions: Bed (12/24/22 113) Family updated on transfer: yes Additional Assessment Information: OCAMPO CATHETER, BEDREST UNTIL 0100 12/25/22 * Freida Obrien RN - 12/24/2022 11:26 AM EDT Dual Licensed Skin Assessment completed by Freida Obrien and Sofía Whitaker. The patient is/has a N/A Skin Breakdown (includes non blanchable erythema): Yes - Surgical/Procedural changes only. also a scabbed area L leg * Sofía Whitaker RN - 12/24/2022 7:36 AM EDT Dual Licensed Skin Assessment completed by Sofía Whitaker RN and Gregory Edouard RN. The patient is/has a N/A Skin Breakdown (includes non blanchable erythema): Yes. Wound Type: Other, location scratch on LLE, scabbed over Wound Ostomy Nurse Notified: No - wound ostomy not needed at this time Nursing interventions: Monitor and assess for dehiscence * Socorro Enamorado RN - 12/23/2022 9:12 AM EDT NO ANESTHESIA EVAL REQUESTED PER CASE DOCUMENTATION. PATIENT PRE-OP INSTRUCTIONS: Surgical Procedure: Left Femoral Endarterectomy and Placement of Iliac Artery Stent, left side Surgical Date: 12/24/2022 Surgeon: Dr. Jose MD Advanced Practitioner: Micky Dejesus PA-C Clinic phone number: [phone] You will receive a phone call the night before surgery telling you what time to arrive to the Surgery Check-In Unit on the 1st floor of the hospital, Main Entrance. Nothing to eat or drink by mouth after midnight the night before surgery including no food, no gum/hard candy, coffee, tea, other drink, or tobacco product. Continue all of your normal morning medications with a few sips of water on day of surgery unless otherwise instructed. DO NOT TAKE THESE MEDICATIONS ON THE AM OF SURGERY: Losartan (blood pressure medication) CONTINUE your ASPIRIN, including morning of surgery. 24 hours prior to surgery/procedure DO NOT consume any alcohol. DO NOT use medical marijuana. DO NOT smoke or use tobacco products of any kind after midnight prior to surgery. *Using any of these products may increase your risks of procedural complications. IF IT IS LESS THAN RECOMMENDED STOPPAGE TIME PLEASE STOP AT TIME OF NOTIFICATION. FASTING RECOMMENDATIONS: To reduce risk, it is important for all elective surgery patients to follow the specific fasting guidelines listed below. Nothing to eat or drink by mouth after midnight the night before surgery including no food, no gum/hard candy, coffee, tea, other drink, or tobacco product. Any drinks given by your surgical service take as directed. Infant/pediatric patients who currently drink breast milk, formula, and non-human milk must not eat after midnight. These patients are allowed to drink only the liquids listed below up to two hours prior to arrival time to the hospital or surgery center: Ingested Material Minimum Fasting Time Clear liquid After midnight up to 2 hours prior to arrival time Breast milk Up to 4 hours prior to arrival time Infant formula Up to 6 hours prior to arrival time Non-human milk Up to 6 hours prior to arrival time THE DAY BEFORE YOUR SURGERY: -Drink plenty of fluid the day before your surgery. Contact your surgeon's office if you develop any of the following within 2 weeks of surgery: A cold Infection Fever Shingles Chicken pox or exposure to chicken pox Open areas such as scrapes, cuts, kingsley or other skin conditions Rashes GENERAL INSTRUCTIONS FOR PREPARING FOR SURGERY: BATHING INSTRUCTIONS: Bathe the evening prior to and the morning of surgery/procedure. Cleanse your body using ONLY anti-bacterial soap (eg, Dial, Safeguard) or any specific soap/cleansers and instructions provided by your surgeon (eg, Chlorhexidine). -You should brush your teeth the morning of surgery. Do NOT apply any lotions, powders, sprays, creams, oils, make-up, or deodorants after bathing. No hairspray, or nail namibian on fingers or toes. Day of surgery/procedure do not use tampons. If you wear contacts wear your eyeglasses if available otherwise bring your contact supplies with you to remove them prior to your surgery/procedure. If you wear glasses or dentures, please bring cases in which you can store them during your surgery. Please remove all piercings and jewelry and leave them at home. Wear comfortable and loose clothing. -Please leave all valuables at home. -If you use a CPAP and are staying overnight, please bring your mask and tubing with you to the hospital. -If you use an assistive mobility device (walker, cane, etc), please label it with your name and bring to hospital. -An escort driver service technician is required if you are being discharged the same day of the surgery. You should have a responsible adult over the age of 18 [address] you home. This person should be present with youin the hospital at the time of discharge and for the first 24 hours after the surgery to support your needs. If you are taking a taxi home, you must have your responsible democrat accompany you in the taxi ride home at the time of discharge. OR times subject to change. Please check voicemail messages the day/evening before your surgery forany updates. PRE-OP: You will be taken to the pre-op area where your vital signs (blood pressure, pulse and temperature)will be taken. Any preparations that need to be done will be done there. When it is time for your surgery, you will be taken to the operating room. PARENTS OF PEDIATRIC PATIENTS WILL BE ALLOWED TO STAY WITH THEIR CHILDREN UNTIL THEY ARE ESCORTED TO THE OPERATING ROOM OUTPATIENT SURGERY PATIENTS: After your surgery you will be taken to the Same Day Surgery Unit when you are awake and will go home from there. You will get instructions about your home care before you leave. Arrange to have someone drive you home from the hospital. You may not drive for 24 hours after anesthesia. You must havean adult stay with you at home for 24 hours after your operation. This is very important. If you are not able to comply with these guidelines, your Short Stay surgery cannot be done. ADMISSION PATIENTS: After your stay in the recovery area, you will be taken to your room. Your family may visit you in your room based on current visitation policy. If a next day discharge is expected, it is important to make arrangements for a driver service technician to take you home. Please be aware our visitation policies are subject to change Professionals, attendants, caregivers or family members are allowable visitors for patients with intellectual, developmental or cognitive disabilities, communication barriers or behavioral concerns. Because patients' and families' needs vary, they will be taken into account when applying visitat ion restrictions. [facility]: Contact # [phone] Directions to Surgical Suite in from the [facility] Entrance The Surgical Waiting Room can be found in the Lobby [facility]. Enter through [facility] and the Waiting Room is directly in front of you. Proceed to check in and give them your name. Directions to Surgical Suite from the East Entrance Enter the East entrance and follow the hallway to the J elevator. Take the J elevator up to Level 1. Continue down the long hallway to the main [facility] Lobby. The Surgical Waiting Room will be on your Right. Proceed to check in and give them your Name. Directions to Surgical Suite from the Parking Garage Enter the [facility] lobby and proceed down the apple to the left. At the end of the apple, turn right. Continue down the long hallway to the main [place] Lobby. The Surgical Waiting Room will be on your Right. Proceed to check in and give them your Name. THANK YOU FOR CHOOSING [facility]! Pre-operative chart review completed. Presurgery instructions sent to patient via [employer] message. Socorro Enamorado RN, BSN BP [address] 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 Aortogram and left lower extremity angiogram 2. Left femoral endarterectomy with pericardial patch angioplasty Findings: Severe femoral occlusive disease as documented on preoperative imaging studies Estimated Blood Loss: 500 ml Drains: None Fluids: 2000 mL crystalloid Urine Output: 350 mL. Specimen: None Complications: None Condition: Stable to recovery room Indications and History: Brandan Morgan presents with advanced peripheral arterial occlusive diseasewith disabling claudication. Evaluation revealed femoral artery occlusive disease. The patient understands the risks, benefits and alternatives of the surgery and agrees to proceed with the surgical p rocedure. Description of Operation: The patient was identified and the procedure verified. A time-out was held to confirm this information. Following satisfactory anesthesia, both lower extremities were prepped and draped in the usual sterile fashion. A standard left longitudinal groin incision was made over the femoral artery. The common femoral, superficial femoral and profunda arteries were dissected free and isolated with silastic vessel loops. The patient was given heparin intravenously. After heparin administration, the left common femoral, profunda femoris, and superficial femoral arteries were secured with silastic loops. An arteriotomy was performed in the common femoral artery obliquely towards the profunda femoris artery using a #11 blade scalpel and extended using Pott's scissors. Standard femoral endarterectomyperformed involving the common femoral, distal external iliac and origin of the deep femoral and superficial femoral arteries. A pericardial patch was obtained for use and sutured to the femoral artery using 5-0 Prolene suture in a continuous fashion. Before completing the patch closure, the lumen was irrigated with heparinized saline. The profunda femoris and superficial femoral arteries were allowed to back-bleed. The common femoral artery was allowed to forward-bleed. The anastomosis was completed and blood flow was restored. The pericardial patch was accessed with a micropuncture catheter and Bentson wire was advanced intothe aorta. An Omni flush catheter was then advanced into the aorta and an aortogram was performed. The aortoiliac system was widely patent. The left femoral endarterectomy and the runoff through the profunda and superficial femoral artery origins were widely patent. A left lower extremity angiogram was performed and there was moderate disease in the superficial femoral artery at [facility]. The popliteal segment was mildly diseased and the patient had three-vessel runoff to the foot. Sheath was removed from the pericardial patch and the arteriotomy was closed with a 5 0 Prolene suture. Blood flow in the superficial femoral and profunda femoris arteries was checked by both palpation and with hand held Doppler probe. Hemostasis was secured. The groin incision was closed in three layers of interrupted 3-0 Vicryl andthe skin closed with Monocryl in subcuticular fashion. There was good Doppler flow in both legs postoperatively. Sterile dressings were applied. Sponge and needle counts were correct. The patient tolerated the procedure well and was transferred in stable condition to the recovery room. Attestation: I was present and scrubbed for the entire procedure documented in this encounter Miscellaneous Notes * Progress Notes - Post-Op Global - Sen Pino Jr., MD - 12/25/2022 6:54 AM EDT LOWER EXTREMITY SURGICAL PROGRESS NOTE - Vascular Surgery [facility] [address] Name: Brandan Morgan Location: [facility] H856/A Date: 12/25/2022 Time: 6:54 AM Brandan Morgan is status post left femoral endarterectomy 12/24/22 SUBJECTIVE: No acute events overnight, feels well overall. Pain well controlled. Denies n/v. OBJECTIVE: Most Recent Vital Signs: BP: 142 mmHg/76 mmHg (12/25/22209) Pulse: 74 (12/25/22209) Temp: 36.22 C (12/25/22209) Resp: 16 (12/25/22209) SpO2: 94 % (12/25/22209) Vital Signs Last 24 Hours: Systolic BP: Most Recent Systolic BP Av.7 mmHg Min: 115 mmHg Max: 152 mmHg Temperature: Most Recent Temperature Av.4 C Min: 36.11 C Max: 36.78 C Pulse: Pulse Av.6 Min: 67 Max: 81 Respirations: Resp Av.9 Min: 15 Max: 25 SpO2: SpO2 Av % Min: 91 % Max: 100 % Intake/Output Summary (Last 24 hours) at 12/25/2022 0654 Last data filed at 12/25/2022 0546 Gross per 24 hour Intake 2930 ml Output 3430 ml Net -500 ml Constitutional: no acute distress HEENT: normal: normocephalic, atraumatic; no masses, tenderness, or adenopathy CV: normal rate, normal rhythm Chest: normal respiratory effort, chest wall normal Abdomen: soft, no tenderness, nondistended Neuro: alert, GCS 15 Skin: warm, dry, intact Surgical Site: Prevena in place, holding seal, no signs of swelling or hematoma Vascular Exam: biphasic left DP/PT signals on doppler LABS: Labs reviewed as indicated below: BMP Lab results within last 7 days (see chart for full results) Units 12/24/22 1136 Sodium mmol/L 140 Potassium mmol/L 4.5 Chloride mmol/L 103 CO2 mmol/L 25 BUN mg/dL 16 Creatinine mg/dL 1.0 IMPRESSION and PLAN: 67 y/o M w/ PAD now s/p left femoral endarterectomy by Dr. Garcia on 12/24/22 - D/C ocampo today - Diet: Heart healthy diet - Monitor distal pulses / surgical site - Prevena - ASA / Statin - VTE PPx: SQH - Medium dose SSI - Pain control - Likely home today if voids independently and ambulates without significant pain Patient was examined and will be discussed with Dr. Garcia. Sen Pnio Jr, MD PGY-3, Department of General Surgery 12/25/2022 6:56 AM Associated attestation - Jean Garcia MD - 12/25/2022 4:35 PM EDT I saw and evaluated the patient today. I have reviewed the trainee note and agree. Jean Garcia MD Vascular Surgeon Department of Vascular Surgery [facility] * Care Plan - Corie Ghosh RN - 12/25/2022 2:07 AM EDT Patient will remain on bedrest till 0100 am Possible barriers to meeting goal(s)/advancing plan of care: Getting out of bed Stability of the patient: Moderately unstable - medium risk of patient condition declining or worsening Summary regarding today's goal(s): Met: Recommendations: Allow ambulation past 0100 * Respiratory Progress Note - Natalya Vazquez RRT - 12/24/2022 5:11 PM EDT PATIENT DRIVEN PROTOCOL - Respiratory Care Services [facility] [address] Name: Brandan Morgan Location: [facility] H856/A Date: 12/24/2022 Time: 5:11 PM Patient Driven Protocol Summary: Initial evaluation performed. This Treatment Plan and medications will be reviewed by the Primary Care Team for any contraindications. Respiratory Care Treatment Plan Pulmonary Volume Expansion Therapy: Incentive Spirometry PRN to prevent or treat alveolar consolidation and atelectasis. . The patient will be re-evaluated: No re-evaluation needed. Indications for treatment met. The Triage Level is: (Assessment Score = 0 - 5) Level 5. Triage Level Definitions: Level 1 Severe Respiratory/Airway Compromise Level 2 Moderate Respiratory/Airway Compromise or high risk for pulmonary complications Level 3 Mild Respiratory/Airway Compromise or moderate risk for pulmonary complications Level 4 Episodic Respiratory/Airway Compromise or low risk for pulmonary complications Level 5 No Respiratory/Airway Compromise Triage 1 Triage 2 Triage 3 Triage 4 Triage 5 greater than 20 16 - 20 11 - 15 6 - 10 0 - 5 Medical Record Assessment Clinical Findings Pulmonary Status: 1 - Smoking less than 1 pack/day or quit less than 5 years ago Surgical Status: 1 - General Surgery Chest X-Ray: 0 - Not Performed or performed greater than 3 days ago Assessment Score: 2 Patient Assessment Clinical Findings Respiratory Pattern: 0 - RR 12 - 20; Patient only gets breathless with strenuous exercise. Breath Sounds: 2 - Diminished bilaterally Cough Effectiveness: 0 - Strong non-productive Sputum Production: 0 - No sputum production Level of Activity: 0 - Ambulatory O2 needed to keep SpO2 greater than or equal to 92%: 0 - Room Air Assessment Score: 2 Total Assessment Score: 4 Breath Sounds: Inspiratory and expiratory clear and diminished bilaterally.. Cough and Sputum: No cough was present.. CXR: Not performed. Vital Signs: Resp: 20 (12/24/22 1527) Pulse: 69 (12/24/22 152) Temp: 36.6 C (97.9 F) (12/24/22 1527) BP: 141/69 (12/24/22 1527) SpO2: 93 % (12/24/22 152) PFT: Minimal Predicted IC: 1.25 L. Inspiratory capacity: 2.5L. Primary Service: Vascular Surgery. Admitting Diagnosis: PAD (peripheral artery disease) ([facility]) [I73.9] Pulmonary Diagnosis: Former smoker (2016), Former lung mass removed . Prescriptions/Home Medications/Durable Medical Equipment: Per Patient: None. Recommended New home medications/durable medical equipment/outpatient pulmonary/sleep referral: None. * Progress Notes - Non-Billable - Jairon Mir Wilberreal, - 12/24/2022 12:53 PM EDT LOWER EXTREMITY SURGICAL PROGRESS NOTE - Vascular Surgery [facility] [address] Name: Brandan Morgan Location: OR [facility]/OR Date: 12/24/2022 Time: 12:53 PM Brandan Morgan is status post left femoral endarterectomy SUBJECTIVE: The patient denies moderate incisional pain, nausea, emesis, chest pain, foot/toe pain and dyspnea, reports no acute complaints . OBJECTIVE: Most Recent Vital Signs: BP: 126 mmHg/81 mmHg (12/24/22 1200) Pulse: 71 (12/24/22 1200) Temp: 36.11 C (12/24/22 1135) Resp: 15 (12/24/22 1200) SpO2: 97 % (12/24/22 1200) Vital Signs Last 24 Hours: Systolic BP: Most Recent Systolic BP Av.9 mmHg Min: 115 mmHg Max: 168 mmHg Temperature: Most Recent Temperature Av.2 C Min: 36.11 C Max: 36.28 C Pulse: Pulse Av.3 Min: 70 Max: 81 Respirations: Resp Av.1 Min: 15 Max: 25 SpO2: SpO2 Av.4 % Min: 91 % Max: 100 % Intake/Output Summary (Last 24 hours) at 12/24/2022 1253 Last data filed at 12/24/2022 1135 Gross per 24 hour Intake 2450 ml Output 950 ml Net 1500 ml Constitutional: no acute distress HEENT: normal: normocephalic, atraumatic; no masses, tenderness, or adenopathy CV: normal rate, normal rhythm Chest: normal respiratory effort, chest wall normal Abdomen: soft, no tenderness, nondistended Neuro: alert, normal mental status exam, muscular strength 5/5 and symmetric, sensory normal Skin: warm, dry, intact Surgical Site: Prevena in place, functioning properly, c/d/i, no signs of swelling or hematoma Vascular Exam: PT w/ doppler signal b/l LABS: Labs reviewed as indicated below: BMP Lab results within last 7 days (see chart for full results) Units 12/24/22 1136 Sodium mmol/L 140 Potassium mmol/L 4.5 Chloride mmol/L 103 CO2 mmol/L 25 BUN mg/dL 16 Creatinine mg/dL 1.0 IMPRESSION and PLAN: 67 y/o M w/ PAD now s/p left femoral endarterectomy by Dr. Garcia on 12/24/22 - Bedrest x12 hours - Diet: Heart healthy diet - IVF until tolerating diet - Monitor distal pulses / surgical site - Prevena - ASA / Statin - VTE PPx: SQH - Medium dose SSI - Pain control Jairon Anne DO PGY1 General Surgery Resident 12/24/22 documented in this encounter Plan of Treatment Upcoming Encounters Date Type Specialty Care Team Description 01/06/2023 Office Visit Vascular Surgery Jean Garcia MD [address] [place] [address] 01/13/2023 Imaging Radiology 01/13/2023 Imaging Radiology 01/20/2023 Office Visit Vascular Surgery Jean Garcia MD [address] [place] [address] 02/09/2023 Hospital Encounter Endoscopy Naldo Lyon MD [address] [place] [address] 02/09/2023 Surgery Endoscopy Naldo Lyon MD [address] [place] [address] COLONOSCOPY FLEXIBLE PROXIMAL DIAGNOSTIC 03/04/2023 Office Visit Cardiology Víctor Mcclain MD [address] [place] [address] 04/07/2023 [facility] [address] [facility] [id number] 05/17/2023 Office Visit Family Medicine Trinity Mckenzie, DO [address] [facility] [place] [address] 05/20/2023 Office Visit Ophthalmology Abilio Hensley, DO [address] [facility] [place] [id number] Scheduled Procedures Name Priority Associated Diagnoses Date/Ti me COLONOSCOPY FLEXIBLE PROXIMAL DIAGNOSTIC Recall History of colon polyps 02/09/2023 10:00 AM EDT Health Maintenance Due Date Last Done Comments [...] this encounter Medical Devices Implanted Type Area Delivery Consultant Device Identifier Shelf Expiration Date Model / Serial / Lot Lens 17.5 Sn60wf - [id number] Implanted:Qty : 1 on 06/27/2014 by Rich Brooks MD at OR [facility] Right: Eye [employer] 03/18/2019 SN60WF.17 5 / [id number] / Lens 18.0 Sn60wf - [id number] - [id number] Implanted:Qty : 1 on 07/22/2022 by Abilio Hensley DO at OR [facility] Left: Eye MIRIAN : SURGICAL 11/16/2023 SN60WF.1 8 0 / [id number] / Patch Xenosure [id number] - [id number] Implanted:Qty : 1 on 12/24/2022 by Jean Garcia MD at [place] [facility] Left: Femoral Artery [employer] [id number] 08/15/2028 E0.8P8 / [id number] / [id number] documented as of this encounter Procedures Procedure Name Priority Date/Time Associated Diagnosis Comments GLUCOSE METER, POINT OF CARE [facility] 12/25/2022 7:11 AM EDT BASIC METABOLIC PANEL STAT 12/25/2022 6:06 AM EDT CBC STAT 12/25/2022 6:06 AM EDT GLUCOSE METER, POINT OF CARE [facility] 12/24/2022 11:12 PM EDT GLUCOSE METER, POINT OF CARE [facility] 12/24/2022 8:52 PM EDT GLUCOSE METER, POINT OF CARE [facility] 12/24/2022 4:55 PM EDT GLUCOSE METER, POINT OF CARE [facility] 12/24/2022 12:02 PM EDT HEMOGLOBIN A1C Routine 12/24/2022 11:36 AM EDT BASIC METABOLIC PANEL STAT 12/24/2022 11:36 AM EDT CBC STAT 12/24/2022 11:36 AM EDT VASC PROCEDURE IN VASCULAR ANGIO SUITE Routine 12/24/2022 11:03 AM EDT GLUCOSE METER, POINT OF CARE [facility] 12/24/2022 6:58 AM EDT SARS-COV-2 (COVID-19), NAAT STAT 12/24/2022 6:44 AM EDT ILIAC ARTERY REVASC W/ STENT+ANGIOPLASTY 12/24/2022 6:30 AM EDT PAD (peripheral artery disease) ([facility]) IMAGING SUPERVISION & INTERPRETATION EXTREMITY UNILATERAL 12/24/2022 6:30 AM EDT PAD (peripheral artery disease) ([facility]) COMMON FEMORAL ENDARTERECTOMY 12/24/2022 6:30 AM EDT PAD (peripheral artery disease) ([facility]) documented in this encounter Results * (ABNORMAL) GLUCOSE METER, POINT OF CARE (12/25/2022 7:11 AM EDT) Glucose Meter 188(H) 70 - 120 mg/dL 12/25/2022 7:14 AM EDT [facility] Zang Blood Whole blood specimen / Unknown 12/25/2022 7:11 AM EDT 12/25/2022 7:14 AM EDT Jean Garcia MD LAB POINT OF CARE T EST DOCKED DEVICE UNSOLICITED RESULTS [facility] [address] [place] [address] * (ABNORMAL) BASIC METABOLIC PANEL (12/25/2022 6:06 AM EDT) BUN 11 6 - 20 mg/dL 12/25/2022 6:58 AM EDT [facility] Creatinine 0.9 0.6 - 1.2 mg/dL 12/25/2022 6:58 AM EDT [facility] Estimated Glomerular Filtration Rate >90 >=60 mL/min 12/25/2022 6:58 AM EDT [facility] Comment:eGFR is calculated b ased on the CKD-EPI 2020 equation Sodium 137 135 - 146 mmol/L 12/25/2022 6:58 AM EDT [facility] Potassium 4.4 3.5 - 5.1 mmol/L 12/25/2022 6:58 AM EDT [facility] Chloride 101 98 - 107 mmol/L 12/25/2022 6:58 AM EDT [facility] CO2 25 22 - 32 mmol/L 12/25/2022 6:58 AM EDT [facility] Anion Gap 11 7 - 15 mmol/L 12/25/2022 6:58 AM EDT [facility] Glucose 139(H) 70 - 120 mg/dL 12/25/2022 6:58 AM EDT [facility] Calcium 9.2 8.4 - 10.2 mg/dL 12/25/2022 6:58 AM EDT LABORATORY C Blood Venous blood specimen / Unknown Venipuncture / Unknown 12/25/2022 6:06 AM EDT 12/25/2022 6:25 AM EDT Randy Bee MD LAB BLOOD ORDERABLES Performing Organization Address City/State/[facility] Co de Phone Number LABORATORY [facility] [address] [place] [address] * (ABNORMAL) CBC (12/25/2022 6:06 AM EDT) WBC 12.96(H) 4.00 - 10.80 K/uL 12/25/2022 7:01 AM EDT [facility] RBC 3.73 4.50 - 5.25 M/uL 12/25/2022 7:01 AM EDT [facility] HGB 12.4(L) 14.0 - 16.8 g/dL 12/25/2022 7:01 AM EDT [facility] HCT 36.7(L) 40.0 - 48.4 % 12/25/2022 7:01 AM EDT LABORATORY [facility] MCV 98.4 82.0 - 99.5 fL 12/25/2022 7:01 AM EDT LABORATORY [facility] MCH 33.2 27.0 - 34.0 pg 12/25/2022 7:01 AM EDT LABORATORY [facility] MCHC 33.8 32.0 - 36.0 g/dL 12/25/2022 7:01 AM EDT LABORATORY [facility] RDW 13.0 11.5 - 15.5 % 12/25/2022 7:01 AM EDT [facility] PLT 128(L) 140 - 400 K/uL 12/25/2022 7:01 AM EDT [facility] MPV 9.4 6.6 - 11.1 fL 12/25/2022 7:01 AM EDT [facility] nRBCs 0 <=0 /100 WBCs 12/25/2022 7:01 AM EDT [facility] Blood Venous blood specimen / Unknown Venipuncture / Unknown 12/25/2022 6:06 AM EDT 12/25/2022 6:25 AM EDT Randy Bee MD LAB BLOOD ORDERABLES [facility] [address] [place] [address] * (ABNORMAL) GLUCOSE METER, POINT OF CARE (12/24/2022 11:12 PM EDT) [facility] Signature Glucose Meter 172(H) 70 - 120 mg/dL 12/25/2022 5:[address] [email or web address] Blood Whole blood specimen / Unknown 12/24/2022 11:12 PM EDT 12/25/2022 5:53 AM EDT Jean Garcia MD LAB POINT OF CARE T EST DOCKED DEVICE UNSOLICITED RESULTS [facility] [address] [place] [address] * (ABNORMAL) GLUCOSE METER, POINT OF CARE (12/24/2022 8:52 PM EDT) Glucose Meter 159(H) 70 - 120 mg/dL 12/24/2022 9:21 PM EDT [facility] [employer] [facility] Blood Whole blood specimen / Unknown 12/24/2022 8:52 PM EDT 12/24/2022 9:21 PM EDT Jean Garcia MD LAB POINT OF CARE T EST DOCKED DEVICE UNSOLICITED RESULTS [facility] [address] [place] [address] * (ABNORMAL) GLUCOSE METER, POINT OF CARE (12/24/2022 4:55 PM EDT) Glucose Meter 166(H) 70 - 120 mg/dL 12/24/2022 5:08 PM EDT [facility] [employer] [facility] Blood Whole blood specimen / Unknown 12/24/2022 4:55 PM EDT 12/24/2022 5:08 PM EDT Jean Garcia MD LAB POINT OF CARE T EST DOCKED DEVICE UNSOLICITED RESULTS Performing Organization Address City/[facility]/ZIP Co de Phone Number [facility] [address] [place] [address] * (ABNORMAL) GLUCOSE METER, POINT OF CARE (12/24/2022 12:02 PM EDT) Glucose Meter 126(H) 70 - 120 mg/dL 12/24/2022 12:10 PM EDT [facility] [employer] [facility] Blood Whole blood specimen / Unknown 12/24/2022 12:02 PM EDT 12/24/2022 12:10 PM EDT Jaen Garcia MD LAB POINT OF CARE T EST DOCKED DEVICE UNSOLICITED RESULTS [facility] [address] [place] [address] * HEMOGLOBIN A1C (12/24/2022 11:36 AM EDT) Hemoglobin A1C 5.4 4.0 - 5.6 % 12/24/2022 12:25 PM EDT [facility] Comment:The use of HbA1c to monitor glycemic status is based on normal hemoglobin and HbA composition. This test should not be used in patients with abnormal hemoglobin that affects the half life of the red blood cell or the in vivo glycation rates. Estimated Average Glucose 108 <126 mg/dL 12/24/2022 12:25 PM EDT [facility] Blood Venous blood specimen / Unknown Venipuncture / Unknown 12/24/2022 11:36 AM EDT 12/24/2022 12:03 PM EDT Randy Bee MD LAB BLOOD ORDERABLES [facility] [address] [place] [address] * (ABNORMAL) BASIC METABOLIC PANEL (12/24/2022 11:36 AM EDT) Pathologist [facility] BUN 16 6 - 20 mg/dL 12/24/2022 12:28 PM EDT [facility] Creatinine 1.0 0.6 - 1.2 mg/dL 12/24/2022 12:28 PM EDT [facility] Estimated Glomerular Filtration Rate 87 >=60 mL/min 12/24/2022 12:28 PM EDT [facility] Comment:eGFR is calculated b ased on the CKD-EPI 2020 equation Sodium 140 135 - 146 mmol/L 12/24/2022 12:28 PM EDT [facility] Potassium 4.5 3.5 - 5.1 mmol/L 12/24/2022 12:28 PM EDT [facility] Chloride 103 98 - 107 mmol/L 12/24/2022 12:28 PM EDT [facility] CO2 25 22 - 32 mmol/L 12/24/2022 12:28 PM EDT [facility] Anion Gap 12 7 - 15 mmol/L 12/24/2022 12:28 PM EDT [facility] Glucose 127(H) 70 - 120 mg/dL 12/24/2022 12:28 PM EDT [facility] Calcium 8.5 8.4 - 10.2 mg/dL 12/24/2022 12:28 PM EDT [facility] Blood Venous blood specimen / Unknown Venipuncture / Unknown 12/24/2022 11:36 AM EDT 12/24/2022 12:01 PM EDT Randy Bee MD LAB BLOOD ORDERABLES [facility] [address] [place] [address] * (ABNORMAL) CBC (12/24/2022 11:36 AM EDT) [facility] WBC 6.99 4.00 - 10.80 K/uL 12/24/2022 12:56 PM EDT [facility] RBC 3.65 4.50 - 5.25 M/uL 12/24/2022 12:56 PM EDT [facility] HGB 11.7(L) 14.0 - 16.8 g/dL 12/24/2022 12:56 PM EDT [facility] HCT 35.6(L) 40.0 - 48.4 % 12/24/2022 12:56 PM EDT [facility] MCV 97.5 82.0 - 99.5 fL 12/24/2022 12:56 PM EDT [facility] MCH 32.1 27.0 - 34.0 pg 12/24/2022 12:56 PM EDT [facility] MCHC 32.9 32.0 - 36.0 g/dL 12/24/2022 12:56 PM EDT [facility] RDW 12.9 11.5 - 15.5 % 12/24/2022 12:56 PM EDT [facility] PLT 115(L) 140 - 400 K/uL 12/24/2022 12:56 PM EDT [facility] MPV 9.3 6.6 - 11.1 fL 12/24/2022 12:56 PM EDT [facility] nRBCs 0 <=0 /100 WBCs 12/24/2022 12:56 PM EDT [facility] Blood Venous blood specimen / Unknown Venipuncture / Unknown 12/24/2022 11:36 AM EDT 12/24/2022 12:01 PM EDT Randy Bee MD LAB BLOOD ORDERABLES [facility] [address] [place] [address] * VASC PROCEDURE IN VASCULAR ANGIO SUITE (12/24/2022 11:03 AM EDT) Narrative Scheduling, Silent - 12/24/2022 11:03 AM EDT This procedure will not be read by a Radiologist. Please see operative note. Jean Garcia MD RAD SPECIAL PROCEDU RES * GLUCOSE METER, POINT OF CARE (12/24/2022 6:58 AM EDT) Glucose Meter 107 70 - 120 mg/dL 12/24/2022 7:07 AM EDT [employer] [facility] Blood Whole blood specimen / Unknown 12/24/2022 6:58 AM EDT 12/24/2022 7:07 AM EDT Jean Garcia MD LAB POINT OF CARE T EST DOCKED DEVICE UNSOLICITED RESULTS Performing Organization Address City/[facility]/ZIP Co de Phone Number [facility] [address] [place] [address] * SARS-COV-2 (COVID-19), NAAT (12/24/2022 6:44 AM EDT) SARS-CoV-2 (COVID-19) Result Negative Negative 12/24/2022 7:49 AM EDT [facility] Comment: 2019 Novel Coronavirus not detected. This express test was developed and its performance characteristics determined by [facility]. It has not been cleared or approved by the U.S. Food and Drug Administration (FDA). FDA does not require this test to go thru premarket FDA review. This test is used for clinical purposes. It should not be regarded as investigational or for research. This laboratory is certified under the Clinical Laboratory Improvement Amendments (CLIA) as qualified to perform high complexity clinical laboratory testing. This test is a nucleic acid amplification test (NAAT), a reverse transcriptase polymerase chain reaction (RT-PCR) test, or a Centers for Disease Control- acceptable equivalent. The test is performed in a high complexity Clinical Laboratory Improvement Amendments-(CLIA) certified laboratory. The test is acceptable for SARS-CoV-2 diagnosis, surveillance, and travel within the [place] and to most countries. Please check with local testing authorities about requirements before travel. The validation of bronchial specimens, tracheal aspirates, and sputum for this assay was developed and performance characteristics determined by [facility]. The validation of alternate specimen types has not been cleared or approved by the U.S. Food and Drug Administration (FDA). It has been determined that such clearance is not necessary. Upper Respiratory Mid-turbinate nasal swab / Unknown Non-blood Collection / Unknown 12/24/2022 6:44 AM EDT 12/24/2022 7:06 AM EDT Micky Dejesus PA-C LAB MICRO - GENE RAL ORDERABLES [facility] [address] [place] [address] documented in this encounter Visit Diagnoses Diagnosis PVD (peripheral vascular disease) (HCC)- Primary Peripheral vascular disease, unspecified PVD (peripheral vascular disease) (HCC) Peripheral vascular disease, unspecified PAD (peripheral artery disease) (HCC) Peripheral vascular disease, unspecified Chest pain Chest pain, unspecified Atherosclerosis of [place] arteries of extremities with intermittent claudication, left leg (HCC) MCC (current) use of aspirin Hyperlipidemia, unspecified Personal history of nicotine dependence Personal history of tobacco use, presenting hazards to health History of colon polyps Personal history of colonic polyps documented in this encounter Administered Medications Inactive Administered Medications - up to 3 most recent administrations Medication Order MAR Action Action Date Dose Rate Site Acetaminophen (Tylenol) tab 975 mg 975 mg, Oral, PREOP, First dose on Nathaly 12/24/22 at 0645, Last dose on Wed12/24/22 at 0645, For 1 dose, Maximum 4 g acetaminophen/day. Avoid in patients with severe hepatic impairment or severe active liver disease. Administer 60 minutes prior to OR., Pre-Op Given 12/24/2022 6:26 AM EDT 975 mg Acetaminophen (Tylenol) tab 975 mg 975 mg, Oral, Q6H, First dose on Wed12/24/22 at 1200, Last dose on Wed12/29/22 at 0600, For 5 days, Maximum 4 g acetaminophen/day. Avoid in patients with severe hepatic impairment or severe active liver disease. Use for 5 days., Post-op Given 12/25/2022 5:40 AM EDT 975 mg Given 12/24/2022 11:06 PM EDT 975 mg Given 12/24/2022 5:33 PM EDT 975 mg aspirin enteric coated tab 81 mg 81 mg, Oral, Daily(AM), First dose on Wed12/24/22 at 1130, Until Discontinued, This med should NOT be Crushed or Chewed, Post-op Given 12/25/2022 9:11 AM EDT 81 mg Given 12/24/2022 12:07 PM EDT 81 mg ceFAZolin in dextrose (Ancef) ivpb 2 g 2 g, IV Piggyback, Q8HNOW, 2 doses, First dose on Wed12/24/22 at 1500, Last dose on Wed12/24/22 at 2300, Post-op New Bag 12/24/2022 11:06 PM EDT 2 g 100 mL/hr New Bag 12/24/2022 4:14 PM EDT 2 g 100 mL/hr dextrose 50 % inj 25 mL 25 mL, IV Push, PRN Hypoglycemia, Other, For blood glucose 54 - 69 mg/dL or 70 - 100 mg/dL with symptoms AND patient is unresponsive, NPO, OR unable to swallow, Starting on Wed12/24/22 at 1049, Until Wed12/25/22 at 1537, Administer IV. Recheck blood glucose after 15 minutes. Notify provider. dextrose 50 % inj 50 mL 50 mL, IV Push, PRN Hypoglycemia, Other, For blood glucose below 54 mg/dL AND patient unresponsive, NPO, OR unable to swallow, Starting on Wed12/24/22 at 1049, Until Wed12/25/22 at 1537, Administer IV. Recheck blood glucose in 15 minutes. Notify provider. Ezetimibe (Zetia) tab 10 mg 10 mg, Oral, Daily(AM), First dose on Wed12/25/22 at 0900, Until Discontinued Given 12/25/2022 9:12 AM EDT 10 mg Gabapentin (Neurontin) cap 100 mg 100 mg, Oral, PREOP, First dose on Wed12/24/22 at 0645, Last dose on Wed12/24/22 at 0645, For 1 dose, Administer 60 minutes prior to OR., Pre-Op Given 12/24/2022 6:26 AM EDT 100 mg glucagon (Glucagen) inj 1 mg 1 mg, Intramuscular, PRN Hypoglycemia, Other, If patient is unresponsive, or NPO and has no IV access, Starting on Wed12/24/22 at 1049, Until Wed12/25/22 at 1537, NPO and no IV access with either 1) blood glucose less than 100 mg/dL and symptomatic OR 2) blood glucose less than 70 mg/dL and asymptomatic Glucose (Glutose 15) 40 % gel 15 g of glucose 15 g of glucose, Oral, PRN Hypoglycemia (low sugar), Other, For blood glucose 54 - 69 mg/dL or 70 - 100 mg/dL with symptoms AND patient alert WITH difficulty chewing/swallowing, Starting on Wed12/24/22 at 1049, Until Wed12/25/22 at 1537, Administer gel. Recheck blood glucose after 15 minutes. Notify provider. 37.5 gram tube = 15 grams glucose = 1 each Glucose (Glutose 15) 40 % gel 30 g of glucose 30 g of glucose, Oral, PRN Hypoglycemia (low sugar), Other, For blood glucose below 54 mg/dL AND patient alert WITH difficulty chewing/swallowing, Starting on Wed12/24/22 at 1049, Until Wed12/25/22 at 1537, Administer gel. Recheck blood glucose after 15 minutes. Notify provider. 37.5 gram tube = 15 grams glucose = 1 each glucose chew tab 16 g 16 g, Oral, PRN Hypoglycemia, Other, For blood glucose 54 - 69 mg/dL or 70 - 100 mg/dL with symptoms and patient alert without difficulty chewing/swallowing., Starting on Wed12/24/22 at 1049, Until Wed12/25/22 at 1537 hEParin inj 5,000 Units 5,000 Units, Subcutaneous, Q8H, First dose on Wed12/25/22 at 0600, Until Discontinued, Post-op Given 12/25/2022 5:40 AM EDT 5,000 Units Abdomen Left Lower insulin aspart (NovoLOG) inj Subcutaneous, Q6H, First dose on Wed12/24/22 at 1200, Until Discontinued, MEDIUM DOSE (Usual starting dose): Sliding Scale Correctional insulin may be given if the patient is NPO. Dose based on standard build from Insulin Calculator. Do not modify insulin doses in administration instructions! , Glucose less than 70 instructions: Obtain STAT lab blood glucose and call covering provider., Glucose 80-150 (units): 0, Glucose 151-200 (units): 2, Glucose 201-250 (units): 4, Glucose 251-300 (units): 6, Glucose greater than 300 (units): 8, Glucose greater than 300 instructions: Give suggested insulin dose and call covering provider. Given 12/25/2022 8:00 AM EDT 2 Units Arm Right Upper Given 12/25/2022 12:07 AM EDT 2 Units A rm Left Upper Given 12/24/2022 5:33 PM EDT 2 Units Ar m Left Upper isolyte-S pH 7.4 infusion Intravenous, at 75 mL/hr, Plasma-LYTE 148, isolyte-S, and isolyte-S pH 7.4 are considered equivalent - including for MAR barcode scanning., CONTINUOUS, Starting on Wed12/24/22 at 1130, Until Wed12/24/22 at 1729, Post-op New Bag 12/24/2022 11:49 AM EDT 75 mL/hr 75 mL/hr losartan (Cozaar) tab 100 mg 100 mg, Oral, Daily(AM), First dose on Wed12/25/22 at 0900, Until Discontinued Given 12/25/2022 9:12 AM EDT 100 mg melatonin tab 3 mg 3 mg, Oral, HS PRN Sleep, Starting on Wed12/24/22 at 1046, Until Wed12/25/22 at 1537, Post-op metoprolol succinate XL (toPROL XL) tab 25 mg 25 mg, Oral, Daily(AM), First dose on Wed12/25/22 at 0900, Until Discontinued, Hold for HR less than 60 or SBP below 100 and notify service if dose is held This med should NOT be Crushed or Chewed. Given 12/25/2022 9:12 AM EDT 25 mg NSS 0.9% 500 mL bolus infusion Intravenous, at 500 mL/hr Administer over 60 Minutes, Administer entire volume within 60 minutes or less., PRN, 2 doses, Starting on Nathaly 12/24/22 at 1046, Until Wed12/25/22 at 1537, Hypotension, Systolic Blood pressure less than 90, Post-op ondansetron (Zofran) inj 4 mg 4 mg, IV Push, Q6H PRN Other, May use for nausea or vomiting if patient unable to take oral ondansetron, Starting on Nathaly 12/24/22 at 1046, Until Wed12/25/22 at 1537, Post-op ondansetron ODT (Zofran) tab 4 mg 4 mg, On Tongue, Q6H PRN Nausea, Vomiting, Starting on Nathaly 12/24/22 at 1046, Until Wed12/25/22 at 1537, Post-op oxyCODONE (Oxy IR) tab 10 mg 10 mg, Oral, Q4H PRN Pain, Severe, Starting on Nathaly 12/24/22 at 1047, Until Wed12/25/22 at 1537, Hold for somnolence or respiratory rate less than 10, Post-op oxyCODONE (Oxy IR) tab 5 mg 5 mg, Oral, Q4H PRN Pain, Moderate, Starting on Nathaly 12/24/22 at 1047, Until Wed12/25/22 at 1537, Hold for somnolence or respiratory rate less than 10, Post-op oxygen GAS Inhalation, OXYGEN, First dose on Nathaly 12/24/22 at 1045, Until Discontinued, Device/Managed by: Low Flow Device, Goal SPO2 (%): Other, Lower-limit SPO2 (%): 88, Upper-limit SPO2 (%): 92, Starting Device: Nasal Cannula, Inital Flow Rate (LPM): 6 LPM for NC; 10 LPM for NRB mask, Lowest Support: Nasal Cannula: Flow 0-6 LPM. Titrate up/down by 1 LPM., Higher Support: Non-Rebreather (NRB) Mask: Minimum of 10 LPM. Titrate to maintain bag inflation., Titration Interval: Q2 minutes and as needed., Notify Provider: Other, Notify Provider [other]: If SpO2 less than 88%, notify provider immediately, If patient is on Room Air in the PACU and SpO2 is greater than 88% but less than 92% place patient on Nasal Cannula If patient is on Room Air in the PACU and SpO2 is less than 88% place patient on NRB Mask Oxygen On 12/24/2022 11:45 AM EDT Polyethylene Glycol 3350 (Miralax) oral powder 17 g 17 g (1 Packet), Oral, BID (0900,2100), First dose on Nathaly 12/24/22 at 1130, Until Discontinued, HOLD for loose stools, Post-op Given 12/25/2022 9:12 AM EDT 17 g Given 12/24/2022 12:07 PM EDT 17 g Povidone-Iodine nasal swab 2 Swab Dosing Unit 2 Swab Dosing Unit, Nasal, PREOP, First dose on Nathaly 12/24/22 at 0645, Last dose on Nathaly 12/24/22 at 0645, For 1 dose, Two applications into each nostril for 30 seconds for each application within 2 hours of surgery. Insert saturated swab into nostril and rotate for 30 seconds, repeat with a second saturated swab in the same nostril for total application time of 1 minute per nostril. Repeat the process with fresh saturated swabs in the opposite nostril., Pre-Op Given 12/24/2022 6:27 AM EDT 2 Swab Dosing Unit Simvastatin (Zocor) tab 40 mg 40 mg, Oral, Q1700, First dose on Nathaly 12/24/22 at 1700, Until Discontinued Given 12/24/2022 4:15 PM EDT 40 mg traMADol ER (Ultram ER) tab 200 mg 200 mg, Oral, PREOP, First dose on Nathaly 12/24/22 at 0645, Last dose on Nathaly 12/24/22 at 0645, For 1 dose, Administer 60 minutes prior to OR, Pre-Op Given 12/24/2022 6:26 AM EDT 200 mg documented in this encounter Active and Recently Administered Medications Times are shown in EDT. Scheduled Medication Order 12/23/2022 12/24/2022 12/25/2022 Acetaminophen (Tylenol) tab 975 mg (COMPLETED) 975 mg, Oral, PREOP, First dose on Nathaly 12/24/22 at 0645, Last dose on Nathaly 12/24/22 at 0645, For 1 dose, Maximum 4 g acetaminophen/day. Avoid in patients with severe hepatic impairment or severe active liver disease. Administer 60 minutes prior to OR., Pre-Op 0626 (Given - Provider: Sofía Whitaker, NASIR) Acetaminophen (Tylenol) tab 975 mg 975 mg, Oral, Q6H, First dose on Wed12/24/22 at 1200, Last dose on Wed12/29/22 at 0600, For 5 days, Maximum 4 g acetaminophen/day. Avoid in patients with severe hepatic impairment or severe active liver disease. Use for 5 days., Post-op 1207 (Given - Provider: Freida Obrien RN)1733 (Given - Provider: Kay Ovalle RN)2306 (Given - Provider: Corie Ghosh, NASIR) 0540 (Given - Provider: Corie Ghosh RN) aspirin enteric coated tab 81 mg 81 mg, Oral, Daily(AM), First dose on Wed12/24/22 at 1130, Until Discontinued, This med should NOT be Crushed or Chewed, Post-op 1207 (Given - Provider: Freida Obrien RN) 0911 (Given - Provider: Britt Chapman RN) ceFAZolin in dextrose (Ancef) ivpb 2 g (COMPLETED) 2 g, IV Piggyback, PREOP, 1 dose, First dose on Wed12/24/22 at 0645, Administer 60 minutes prior to skin incision, Pre-Op 0735 (Given - Provider: Jacki Gaona CRNA) ceFAZolin in dextrose (Ancef) ivpb 2 g (COMPLETED) 2 g, IV Piggyback, Q8HNOW, 2 doses, First dose on Wed12/24/22 at 1500, Last dose on Wed12/24/22 at 2300, Post-op 1614 (New Bag - Provider: Kay Ovalle RN)2306 (New Bag - Provider: Corie Ghosh RN) Ezetimibe (Zetia) tab 10 mg 10 mg, Oral, Daily(AM), First dose on Wed12/25/22 at 0900, Until Discontinued 0912 (Given - Provid er: Britt Chapman RN) Gabapentin (Neurontin) cap 100 mg (COMPLETED) 100 mg, Oral, PREOP, First dose on Wed12/24/22 at 0645, Last dose on Wed12/24/22 at 0645, For 1 dose, Administer 60 minutes prior to OR., Pre-Op 0626 (Given - Provider: Sofía Whitaker, NASIR) hEParin inj 5,000 Units 5,000 Units, Subcutaneous, Q8H, First dose on Wed12/25/22 at 0600, Until Discontinued, Post-op 0540 (Given - Provid er: Corie Ghosh RN) insulin aspart (NovoLOG) inj Subcutaneous, Q6H, First dose on Wed12/24/22 at 1200, Until Discontinued, MEDIUM DOSE (Usual starting dose): Sliding Scale Correctional insulin may be given if the patient is NPO. Dose based on standard build from Insulin Calculator. Do not modify insulin doses in administration instructions! , Glucose less than 70 instructions: Obtain STAT lab blood glucose and call covering provider., Glucose 80-150 (units): 0, Glucose 151-200 (units): 2, Glucose 201-250 (units): 4, Glucose 251-300 (units): 6, Glucose greater than 300 (units): 8, Glucose greater than 300 instructions: Give suggested insulin dose and call covering provider. 1203 (No Insulin - Provider: Freida Obrien RN - Reason: Parameter(s) Not Met)1733 (Given - Provider: Kay Ovalle RN) 0007 (Given - Provider: Corie Ghosh RN)0800 (Given - Provider: Britt Chapman RN) losartan (Cozaar) tab 100 mg 100 mg, Oral, Daily(AM), First dose on Wed12/25/22 at 0900, Until Discontinued 911 (Given - Provid er: Britt Chapman RN) metoprolol succinate XL (toPROL XL) tab 25 mg 25 mg, Oral, Daily(AM), First dose on Wed12/25/22 at 0900, Until Discontinued, Hold for HR less than 60 or SBP below 100 and notify service if dose is held This med should NOT be Crushed or Chewed. 911 (Given - Provid er: Britt Chapman RN) oxygen GAS (CANCELED) Inhalation, OXYGEN, First dose on Nathaly 12/24/22 at 1045, Until Discontinued, Device/Managed by: Low Flow Device, Goal SPO2 (%): Other, Lower-limit SPO2 (%): 88, Upper-limit SPO2 (%): 92, Starting Device: Nasal Cannula, Inital Flow Rate (LPM): 6 LPM for NC; 10 LPM for NRB mask, Lowest Support: Nasal Cannula: Flow 0-6 LPM. Titrate up/down by 1 LPM., Higher Support: Non-Rebreather (NRB) Mask: Minimum of 10 LPM. Titrate to maintain bag inflation., Titration Interval: Q2 minutes and as needed., Notify Provider: Other, Notify Provider [other]: If SpO2 less than 88%, notify provider immediately, If patient is on Room Air in the PACU and SpO2 is greater than 88% but less than 92% place patient on Nasal Cannula If patient is on Room Air in the PACU and SpO2 is less than 88% place patient on NRB Mask 1145 (Oxygen On - Provider: Freida Obrien RN) Polyethylene Glycol 3350 (Miralax) oral powder 17 g 17 g (1 Packet), Oral, BID (0900,2100), First dose on Nathaly 12/24/22 at 1130, Until Discontinued, HOLD for loose stools, Post-op 1207 (Given - Provider: Freida Obrien RN)2100 (Not Given - Provider: Corie Ghosh RN - Reason: Refused-Notify Provider) 0912 (Given - Provider: Britt Chapman, NASIR) Povidone-Iodine nasal swab 2 Swab Dosing Unit (COMPLETED) 2 Swab Dosing Unit, Nasal, PREOP, First dose on Nathaly 12/24/22 at 0645, Last dose on Nathaly 12/24/22 at 0645, For 1 dose, Two applications into each nostril for 30 seconds for each application within 2 hours of surgery. Insert saturated swab into nostril and rotate for 30 seconds, repeat with a second saturated swab in the same nostril for total application time of 1 minute per nostril. Repeat the process with fresh saturated swabs in the opposite nostril., Pre-Op 0627 (Given - Provider: Sofía Whitaker, NASIR) Simvastatin (Zocor) tab 40 mg 40 mg, Oral, Q1700, First dose on Nathaly 12/24/22 at 1700, Until Discontinued 1615 (Given - Provider: Kay Ovalle, NASIR) traMADol ER (Ultram ER) tab 200 mg (COMPLETED) 200 mg, Oral, PREOP, First dose on Nathaly 12/24/22 at 0645, Last dose on Wed12/24/22 at 0645, For 1 dose, Administer 60 minutes prior to OR, Pre-Op 0626 (Given - Provider: Sofía Whitaker, NASIR) Continuous Medication Order 12/23/2022 12/24/2022 12/25/2022 isolyte-S pH 7.4 infusion () Intravenous, at 75 mL/hr, Plasma-LYTE 148, isolyte-S, and isolyte-S pH 7.4 are considered equivalent - including for MAR barcode scanning., CONTINUOUS, Starting on Wed12/24/22 at 1130, Until Wed12/24/22 at 1729, Post-op 1149 (New Bag - Provider: Freida Obrien RN) PRN Medication Order 12/23/2022 12/24/2022 12/25/2022 bupivacaine (Sensorcaine) 0.25 % inj (CANCELED) ONCE PRN INTRA PROCEDURE, Starting on Wed12/24/22 at 1037, Until Nathaly 12/24/22 at 1104, Intra-Op 1037 (Given - Provider: Randy Bee MD - Comment: Local injection surgical site) ceFAZolin 1,000 mg in sodium chloride IR 0.9 % 500 mL irrigation (CANCELED) ONCE PRN INTRA PROCEDURE, Starting on Wed12/24/22 at 0810, Until Nathaly 12/24/22 at 1104, Intra-Op 0810 (Given - Provider: Jean Garcia MD) dextrose 50 % inj 25 mL 25 mL, IV Push, PRN Hypoglycemia, Other, For blood glucose 54 - 69 mg/dL or 70 - 100 mg/dL with symptoms AND patient is unresponsive, NPO, OR unable to swallow, Starting on Wed12/24/22 at 1049, Until Wed12/25/22 at 1537, Administer IV. Recheck blood glucose after 15 minutes. Notify provider. dextrose 50 % inj 50 mL 50 mL, IV Push, PRN Hypoglycemia, Other, For blood glucose below 54 mg/dL AND patient unresponsive, NPO, OR unable to swallow, Starting on Nathaly 12/24/22 at 1049, Until Wed12/25/22 at 1537, Administer IV. Recheck blood glucose in 15 minutes. Notify provider. glucagon (Glucagen) inj 1 mg 1 mg, Intramuscular, PRN Hypoglycemia, Other, If patient is unresponsive, or NPO and has no IV access, Starting on Wed12/24/22 at 1049, Until Wed12/25/22 at 1537, NPO and no IV access with either 1) blood glucose less than 100 mg/dL and symptomatic OR 2) blood glucose less than 70 mg/dL and asymptomatic Glucose (Glutose 15) 40 % gel 15 g of glucose 15 g of glucose, Oral, PRN Hypoglycemia (low sugar), Other, For blood glucose 54 - 69 mg/dL or 70 - 100 mg/dL with symptoms AND patient alert WITH difficulty chewing/swallowing, Starting on Wed12/24/22 at 1049, Until Wed12/25/22 at 1537, Administer gel. Recheck blood glucose after 15 minutes. Notify provider. 37.5 gram tube = 15 grams glucose = 1 each Glucose (Glutose 15) 40 % gel 30 g of glucose 30 g of glucose, Oral, PRN Hypoglycemia (low sugar), Other, For blood glucose below 54 mg/dL AND patient alert WITH difficulty chewing/swallowing, Starting on Wed12/24/22 at 1049, Until Wed12/25/22 at 1537, Administer gel. Recheck blood glucose after 15 minutes. Notify provider. 37.5 gram tube = 15 grams glucose = 1 each glucose chew tab 16 g 16 g, Oral, PRN Hypoglycemia, Other, For blood glucose 54 - 69 mg/dL or 70 - 100 mg/dL with symptoms and patient alert without difficulty chewing/swallowing., Starting on Nathaly 12/24/22 at 1049, Until Wed12/25/22 at 1537 hemostatic matrix (Surgiflo) syringe (CANCELED) ONCE PRN INTRA PROCEDURE, Starting on Wed12/24/22 at 1022, Until Wed12/24/22 at 1104, Intra-Op 1022 (Given - Provider: Randy Bee MD) hEParin 5,000 Units in NSS 500 mL infusion (CANCELED) ONCE PRN INTRA PROCEDURE, Starting on Nathaly 12/24/22 at 0811, Until Nathaly 12/24/22 at 1104, Intra-Op 0811 (Given - Provider: Jean Garcia MD) Iodixanol (Visipaque 320) inj (CANCELED) ONCE PRN INTRA PROCEDURE, Starting on Nathaly 12/24/22 at 1022, Until Nathaly 12/24/22 at 1104, Intra-Op 1022 (Given - Provider: Randy Bee MD) melatonin tab 3 mg 3 mg, Oral, HS PRN Sleep, Starting on Nathaly 12/24/22 at 1046, Until Wed12/25/22 at 1537, Post-op NSS 0.9% 500 mL bolus infusion Intravenous, at 500 mL/hr Administer over 60 Minutes, Administer entire volume within 60 minutes or less., PRN, 2 doses, Starting on Nathaly 12/24/22 at 1046, Until Wed12/25/22 at 1537, Hypotension, Systolic Blood pressure less than 90, Post-op ondansetron (Zofran) inj 4 mg(Linked Group 1) 4 mg, IV Push, Q6H PRN Other, May use for nausea or vomiting if patient unable to take oral ondansetron, Starting on Nathaly 12/24/22 at 1046, Until Wed12/25/22 at 1537, Post-op ondansetron ODT (Zofran) tab 4 mg(Linked Group 1) 4 mg, On Tongue, Q6H PRN Nausea, Vomiting, Starting on Nathaly 12/24/22 at 1046, Until Wed12/25/22 at 1537, Post-op oxyCODONE (Oxy IR) tab 10 mg 10 mg, Oral, Q4H PRN Pain, Severe, Starting on Nathaly 12/24/22 at 1047, Until Wed12/25/22 at 1537, Hold for somnolence or respiratory rate less than 10, Post-op oxyCODONE (Oxy IR) tab 5 mg 5 mg, Oral, Q4H PRN Pain, Moderate, Starting on Nathaly 12/24/22 at 1047, Until Wed12/25/22 at 1537, Hold for somnolence or respiratory rate less than 10, Post-op Linked Groups Order Group 1: ondansetron ODT (Zofran) tab 4 mgJump to med 4 mg, On Tongue, Q6H PRN Nausea, Vomiting
Starting on Nathaly 12/24/22 at 1046, Until 12/25/22 at 1537
Post-op Or ondansetron (Zofran) inj 4 mgJump to med 4 mg, IV Push, Q6H PRN Other, May use for nausea or vomiting if patient unable to take oral ondansetron
Starting on Nathaly 12/24/22 at 1046, Until 12/25/22 at 1537
Post-op documented in this encounter Advance Directives Latest [...] and were consensually agreed upon. Care Teams Rn Intensive Care Unit Relationship Specialty Start Date End Date Trinity Mckenzie, [address] [place] [address] PCP - General Family Medicine 05/27/16 documented as of this encounter
--- OUTSIDE RECORDS SUMMARY | 2023-06-16 01:44 | External Medical Summary ---
Author Name Unknown Address Unknown Organization K01:[facility] [place] - [facility] [address] [place] [address] Laboratory Report Ordering Provider Test Date Status GILDA DIEHL 12/24/2022 11:36:00 Final In PACU Observation Date Value Abnormality Reference (Units ) Status WBC, Total 12/24/2022 11:36:00 6.99 4.00-10.80 (K/uL) Final RBC 12/24/2022 11:36:00 3.65 4.50-5.25 (M/uL) Final Hemoglobin 12/24/2022 11:36:00 11.7 Below low normal 14.0-16.8 (g/dL) Final HCT 12/24/2022 11:36:00 35.6 Below low normal 40.0-48.4 (%) Final MCV 12/24/2022 11:36:00 97.5 82.0-99.5 (fL) Final MCH 12/24/2022 11:36:00 32.1 27.0-34.0 (pg) Final MCHC 12/24/2022 11:36:00 32.9 32.0-36.0 (g/dL) Final RDW 12/24/2022 11:36:00 12.9 11.5-15.5 (%) Final Platelets 12/24/2022 11:36:00 115 Below low normal 140-400 (K/uL) Final MPV 12/24/2022 11:36:00 9.3 6.6-11.1 (fL) Final Nucleated erythrocytes/100 leukocytes [Ratio] in Blood by Automated count 12/24/2022 11:36:00 0 <=0 (/100 WBCs) Final Performing Location [facility] [place] - [address] [place] [address]
--- OUTSIDE RECORDS SUMMARY | 2023-06-16 01:44 | External Medical Summary | Summary of Care ---
Author Name Unknown Organization [facility] Address [address] [facility] [place] [address] Phone [phone] Care Team Providers Care Glass Cutter Helper Name Role Phone Rohan Mckenzie DO Primary Care Provider [phone] Encounter Details Date Type Department Care Team [...] PVD (peripheral vascular disease) 2022 Atherosclerosis of [place] coronary arter y without angina pectoris 09/15/2022 Lung fibrosis 08/07/2021 Lung nodule 05/30/2021 Overview: Repeat CT in 12/07 Abdominal aortic ectasia 02/19/2021 Overview: Recheck 03/10 Coronary artery disease of n ative artery of [place] heart with stable angina pectoris 09/19/2020 Essential (primary) hypertension 021 S/P angioplasty with stent 03/07/2020 Coronary artery disease involving huddleston ry bypass graft of [place] heart 03/07/2020 Chronic venous stasis dermatitis 018 [...] Update ICD-10 update of inactive term 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 documented as of this encounter (statuses as of 03/04/2023) Immunizations Name Administration Dates Next Due COVID-19 mRNA, LNP-s, No Pre serve, 2-Dose Series ([employer]) 05/27/2021,10/10/2020,09/12/2020 Covid-19, Mrna, Lnp-s, Pf, B ivalent, 30 Mcg, IM, 12 yrs and above ([employer]) 06/23/2022 Pneumococcal Conjugate Vacci ne, 20-valent ([id number]) 07/03/2022 Pneumococcal Polysaccharide PPV23 (Pneumovax) 06/17/2021,04/01/2006 Seasonal [...] Office Visit Podiatry Leonela Torre, DPM [address] [facility] [place] [phone] 05/17/2023 Office Visit Family Medicine [facility] [address] 05/20/2023 Office Visit Ophthalmology Abilio Hensley, DO [address] [facility] [place] [address] 05/25/2023 Hospital Encounter Endoscopy Naldo Lyon MD [address] [place] [address] 05/25/2023 Surgery Endoscopy Naldo Lyon MD [address] [place] [address] COLONOSCOPY FLEXIBLE PROXIMAL DIAGNOSTIC Scheduled Procedures Name [...] this encounter Medical Devices Implanted Type Area Asphalt Paving Supervisor Device Identifier Shelf Expiration Date Model / Serial / Lot Lens 17.5 Sn60wf - [id number] Implanted:Qty : 1 on 06/27/2014 by Rich Brooks MD at OR [facility] Right: Eye [employer] 03/18/2019 SN60WF.17 5 / [id number] / Lens 18.0 Sn60wf - [id number] - [id number] Implanted:Qty : 1 on 07/22/2022 by Abilio Hensley DO at OR [facility] Left: Eye MIRIAN : SURGICAL 11/16/2023 SN60WF.1 8 0 / [id number] / Patch Xenosure [id number] - [id number] Implanted:Qty : 1 on 12/24/2022 by Jean Garcia MD at OR [facility] Left: Femoral Artery [employer] [id number] 08/15/2028 E0.8P8 / [id number] / [id number] documented as of this encounter Advance Directives [...] and were consensually agreed upon. Care Teams Glass Cutter Helper Relationship Specialty Start Date End Date Rohan Mckenzie, DO [address] [place] [address] PCP - General Family Medicine 05/27/16 documented as of this encounter
--- OUTSIDE RECORDS SUMMARY | 2023-06-16 01:44 | External Medical Summary | Summary of Care ---
Author Name Unknown Organization [facility] Address [address] [facility] [address] Phone [phone] Care Team Providers Care Hoof Trimmer Name Role Phone Rohan Mckenzie DO Primary Care Provider [phone] Reason for Visit * Reason Comments eRx-Medication Refill Encounter Details Date Type Department Care Team Description 01/13/2023 Refill Cardiology, [facility] [address] [place] [address] Víctor Mcclain MD [address] [place] [address] hypercholesterol Allergies No known active allergiesdocumented as of this encounter (statuses as of 01/13/2023) Medications Medication Sig Dispensed Refills Start Date [...] every 5 minutes as needed. 0 Active Aspirin Low Dose 81 MG Oral Tablet Delayed Release (aspirin enteric coated)Indications :High triglycerides TAKE 1 TABLET BY MOUTH EVERY DAY IN THE MORNING 90 Tablet 3 2 Active Furosemide 20 MG Oral Tablet (Lasix) [...] THE MORNING 90 Tablet 3 3 Active Ezetimibe 10 MG Oral Tablet (Zetia)Indications :High triglycerides TAKE 1 TABLET BY MOUTH EVERY DAY IN THE MORNING 90 Tablet 3 2 01/14/20 23 Discontinued documented as of this encounter (statuses as of 01/13/2023) Active Problems Problem Noted Date Tinea pedis of both feet 11/18/2022 Infrarenal abdominal aortic aneurysm (AA A) without rupture 11/18/2022 Carotid stenosis, non-symptomatic, bilat eral 11/18/2022 PVD (peripheral vascular disease) 2022 Atherosclerosis of [place] coronary arter y without angina pectoris 09/15/2022 Lung fibrosis 08/07/2021 Lung nodule 05/30/2021 Overview: Repeat CT in 12/07 Abdominal aortic ectasia 02/19/2021 Overview: Recheck 03/10 Coronary artery disease of n ative artery of [place] heart with stable angina pectoris 09/19/2020 Essential (primary) hypertension 021 S/P angioplasty with stent 03/07/2020 Coronary artery disease involving huddleston ry bypass graft of [place] heart 03/07/2020 Chronic venous stasis dermatitis 018 [...] as of this encounter (statuses as of 01/13/2023) Resolved Problems Problem Noted Date Resolved Date [...] Update ICD-10 update of inactive term Post RI syndrome 07/05/2002 08/12/2018 Overview: 1996 age 41, inferior wall [place], angioplasty and stent placement at [facility]. documented as of this encounter (statuses as of 01/13/2023) Immunizations Name Administration Dates Next Due COVID-19 mRNA, LNP-s, No Pre serve, 2-Dose Series ([employer]) 05/27/2021,10/10/2020,09/12/2020 Covid-19, Mrna, Lnp-s, Pf, B ivalent, 30 Mcg, IM, 12 yrs and above ([employer]) 06/23/2022 Pneumococcal Conjugate Vacci ne, 20-valent ([id number]) 07/03/2022 Pneumococcal Polysaccharide PPV23 (Pneumovax) 06/17/2021,04/01/2006 Seasonal [...] * Telephone Encounter - AMANDA Easton - 01/13/2023 3:00 PM EDTSigned Prescriptions: Disp Refills Ezetimibe 10 MG Oral Tablet (Zetia) 90 Tab*3 Sig: TAKE 1 TABLET BY MOUTH EVERY DAY IN THE MORNING Authorizing Provider: DARYL WALKER * Telephone Encounter - Don Coats LPN - 01/13/2023 2:59 PM EDTPending Prescriptions: Disp Refills Ezetimibe 10 MG Oral Tablet [Pharmacy Med *90 Tab*3 Sig: TAKE 1 TABLET BY MOUTH EVERY DAY IN THE MORNING * Telephone Encounter - Don Coats LPN - 01/13/2023 2:59 PM EDT Did you pend patient's preferred pharmacy and medication before forwarding?yes Pharmacy: [id number] [address] [facility] Pending Prescriptions: Disp Refills Ezetimibe 10 MG Oral Tablet (Zetia) [Phar*90 Tab*3 Sig: TAKE 1 TABLET BY MOUTH EVERY DAY IN THE MORNING Last Visit: 06/17/2022 (in office), Visit date not found (telemedicine) Next Visit: 03/04/2023 If no future appointments scheduled, and last appointment is greater than a year ago, please schedule patient for a follow-up appointment Last date the medication was ordered: 01/20/22 Is this request for a controlled substance?No [...] Vascular Surgery Jean Garcia MD [address] [place] [address] 03/04/2023 Office Visit Cardiology Víctor Mcclain MD [address] [place] [address] 04/07/2023 [facility] [address] [facility] [phone] 05/17/2023 Office Visit Family Medicine Rohan Mckenzie, DO [address] [facility] [address] 05/20/2023 Office Visit Ophthalmology Abilio Hensley, DO [address] [facility] [place] [address] 05/25/2023 Hospital Encounter Endoscopy Naldo Lyon MD [address] [place] [address] 05/25/2023 Surgery Endoscopy Naldo Lyon MD [address] [place] [address] COLONOSCOPY FLEXIBLE PROXIMAL DIAGNOSTIC Scheduled Procedures Name [...] this encounter Medical Devices Implanted Type Area Foot Miter Operator Device Identifier Shelf Expiration Date Model / Serial / Lot Lens 17.5 Sn60wf - [id number] Implanted:Qty : 1 on 06/27/2014 by Rich Brooks MD at OR [facility] Right: Eye [employer] 03/18/2019 SN60WF.17 5 / [id number] / Lens 18.0 Sn60wf - [id number] - [id number] Implanted:Qty : 1 on 07/22/2022 by Abilio Hensley DO at OR [facility] Left: Eye MIRIAN : SURGICAL 11/16/2023 SN60WF.1 8 0 / [id number] / Patch Xenosure [id number] - [id number] Implanted:Qty : 1 on 12/24/2022 by Jean Garcia MD at OR [facility] Left: Femoral Artery [employer] [id number] 08/15/2028 E0.8P8 / [id number] / [id number] documented as of this encounter Visit Diagnoses [...] and were consensually agreed upon. Care Teams Hoof Trimmer Relationship Specialty Start Date End Date Rohan Mckenzie, DO [address] [facility] [place] [address] PCP - General Family Medicine 05/27/16 documented as of this encounter
--- OUTSIDE RECORDS SUMMARY | 2023-06-16 01:44 | External Medical Summary | Summary of Care ---
Author Name Unknown Organization [facility] Address [address] [place] [address] Phone [phone] Care Team Providers Care Grey Percher Name Role Phone Rohan Mckenzie DO Primary Care Provider [phone] Reason for Visit * Reason Onset Date Comments STAIR AAA 01/20/2023 Encounter Details Date Type Department Care Team Description 01/20/2023 Telephone STAIR [facility] [address], [place] [id number] Program, Stair [address] [place] [address] STAIR [facility] Allergies No known active allergiesdocumented as of this encounter (statuses as of 01/20/2023) Medications Medication Sig Dispensed Refills Start Date [...] as of this encounter (statuses as of 01/20/2023) Active Problems Problem Noted Date Tinea pedis of both feet 11/18/2022 Infrarenal abdominal aortic aneurysm (AA A) without rupture 11/18/2022 Carotid stenosis, non-symptomatic, bilat eral 11/18/2022 PVD (peripheral vascular disease) 2022 Atherosclerosis of [place] coronary arter y without angina pectoris 09/15/2022 Lung fibrosis 08/07/2021 Lung nodule 05/30/2021 Overview: Repeat CT in 12/07 Abdominal aortic ectasia 02/19/2021 Overview: Recheck 03/10 Coronary artery disease of n ative artery of [place] heart with stable angina pectoris 09/19/2020 Essential (primary) hypertension 021 S/P angioplasty with stent 03/07/2020 Coronary artery disease involving huddleston ry bypass graft of [place] heart 03/07/2020 Chronic venous stasis dermatitis 018 [...] as of this encounter (statuses as of 01/20/2023) Resolved Problems Problem Noted Date Resolved Date [...] Update ICD-10 update of inactive term Post MA syndrome 07/05/2002 08/12/2018 Overview: 1996 age 41, inferior wall [place], angioplasty and stent placement at [facility]. documented as of this encounter (statuses as of 01/20/2023) Immunizations Name Administration Dates Next Due COVID-19 mRNA, LNP-s, No Pre serve, 2-Dose Series ([employer]) 05/27/2021,10/10/2020,09/12/2020 Covid-19, Mrna, Lnp-s, Pf, B ivalent, 30 Mcg, IM, 12 yrs and above ([employer]) 06/23/2022 Pneumococcal Conjugate Vacci ne, 20-valent ([id number]) 07/03/2022 Pneumococcal Polysaccharide PPV23 (Pneumovax) 06/17/2021,04/01/2006 Seasonal [...] encounter Miscellaneous Notes * Telephone Encounter - Aliyah Burch LPN - 01/20/2023 1:53 PM EDT AAA - Clinical Summary Name: Brandan Morgan Age: [age] year old AAA Review: Follow-up Patient Identified by: NLP Report Imaging Interpretation: CTA Type of Result: AAA 3.0 to 3.9 cm AAA Care Plan Recommendation: Aortic Duplex - details below Details: in 1 year Next steps: Patient was seen by Dr Garcia today. Next clinic visit with testing prior is due in one year. Aliyah Burch LPN Coordinator STAIR (System to Track Abnormalities of Importance Reliably) CTA ABD AORTA/FEM RUNOFF W CONTRAST 11/04/2022 Narrative PROCEDURE INFORMATION: Exam: CTA Abdominal Aorta and Bilateral Lower Extremities (Run-off) With Contrast Exam date and time: 11/04/2022 1:56 PM Age: 67 years old Clinical indication: Peripheral vascular disease, unspecified; Additional info: Pad, left leg TECHNIQUE: Imaging protocol: Computed tomographic angiography of the of the abdominal aorta, pelvis and bilateral lower extremities with contrast. 3D rendering (Not supervised by radiologist): MIP and/or 3D reconstructed images were created by the technologist. Radiation optimization: All CT scans at this facility use at least one of these dose optimization techniques: automated exposure control; mA and/or kV adjustment per patient size (includes targeted exams where dose is matched to clinical indication); or iterative reconstruction. Contrast material: OPTIRAY 350; Contrast volume: 140 ml; Contrast route: INTRAVENOUS (IV); REPORTING DATA: Count of CT and Cardiac NM exams in prior 12 months: This patient has received 2 known CTs and 0 known cardiac nuclear medicine studies in the 12 months prior to the current study. COMPARISON: CT CHEST WITH(Adult) 09/18/2022 1:46 PM FINDINGS: Aorta: Diffuse calcific atherosclerotic disease of the abdominal aorta. Calcified and noncalcified plaque present in the infrarenal abdominal aorta with associated 3 cm abdominal aortic aneurysm. Celiac trunk and mesenteric arteries: The celiac artery is patent without proximal stenosis or dissection. Moderate stenosis of the proximal superior mesenteric artery. Inferior mesenteric artery is patent. Renal arteries: No occlusion or significant stenosis. Right iliac arteries: Calcific atherosclerotic disease in the right common iliac artery without significant stenosis. Right femoral/popliteal arteries: Cisg-go-qnyckrfi calcific disease in the right common femoral artery. Moderate stenosis in the proximal right superficial femoral artery. Moderate disease in the distal right superficial femoral artery and popliteal artery. Right infrapopliteal arteries: Moderate to severe disease within the infrapopliteal vessels. Very small anterior and posterior tibial arteries. Dominant runoff vessel to the foot is the anterior tibial artery. Left iliac arteries: Calcific atherosclerotic disease in the left common iliac artery without significant stenosis. Mild disease in the left external iliac artery. Left femoral/popliteal arteries: Moderate amount of calcified plaque in the posterior aspect of the left common femoral artery. Severe stenosis with near occlusion of the proximal left superficial femoral artery. Diffuse moderate disease in the left superficial femoral artery with findings pronounced at the abductor canal. Moderate disease in the left popliteal artery. Left infrapopliteal arteries: Moderate to severe disease in the infrapopliteal vessels with dominant runoff vessel to the foot being a very small anterior tibial artery. Lungs: Areas of diffuse bronchial wall thickening are consistent with bronchitis. Bronchitis changes are most pronounced at the right lung base. Liver: No mass. Gallbladder and bile ducts: Unremarkable. No calcified stones. No ductal dilation. Pancreas: Unremarkable. No mass. No ductal dilation. Spleen: Normal. No splenomegaly. Adrenal glands: Normal. No mass. Kidneys and ureters: Normal. No mass. Stomach and bowel: No findings of bowel obstruction or perforation. Appendix: No evidence of appendicitis. Urinary bladder: Unremarkable. No mass. Reproductive: Unremarkable as visualized. Intraperitoneal space: Unremarkable. No free air. No significant fluid collection. Lymph nodes: There is no lymphadenopathy. Bones/joints: Spondylosis most pronounced at L5-S1. Soft tissues: There are bilateral fat containing inguinal hernias. Impression IMPRESSION: 1. 3 cm infrarenal abdominal aortic aneurysm. 2. Moderate stenosis in the proximal portion of the superior mesenteric artery. 3. Dxeg-od-vowinxou disease in the right common femoral artery and moderate stenosis in the proximal right superficial femoral artery. Moderate disease in the right infrapopliteal vessels. 4. Moderate disease in the left common femoral artery with severe stenosis at the origin of the superficial femoral artery. Diffuse disease in the left superficial femoral artery and popliteal artery. Moderate to severe disease in the left infrapopliteal vessels. 5. If further evaluation of the infra popliteal vessels is required, a dedicated arteriogram could be performed. 6. Right lower lobe bronchitis. THIS DOCUMENT HAS BEEN ELECTRONICALLY SIGNED BY RADHA VACA MD documented in this encounter Plan of Treatment Upcoming Encounters Date Type Specialty Care Team Description 03/04/2023 Office Visit Cardiology Víctor Mcclain MD [address] [place] [address] 04/07/2023 Office Visit Podiatry Leonela Torre DPM [address] [facility] [place] [address] 05/17/2023 Office Visit Family Medicine Roahn Mckenzie DO [address] [place] [address] 05/20/2023 Office Visit Ophthalmology Abilio Hensley DO [address] [place] [address] 05/25/2023 Hospital Encounter Endoscopy Naldo Lyon MD [address] [place] [address] 05/25/2023 Surgery Endoscopy Naldo Lyon MD [address] [place] [address] COLONOSCOPY FLEXIBLE PROXIMAL DIAGNOSTIC Scheduled Procedures Name [...] this encounter Medical Devices Implanted Type Area Student Advisor Device Identifier Shelf Expiration Date Model / Serial / Lot Lens 17.5 Sn60wf - [id number] Implanted:Qty : 1 on 06/27/2014 by Rich Brooks MD at OR [facility] Right: Eye [employer] 03/18/2019 SN60WF.17 5 / [id number] / Lens 18.0 Sn60wf - [id number] - [id number] Implanted:Qty : 1 on 07/22/2022 by Abilio Hensley DO at OR [facility] Left: Eye MIRIAN : SURGICAL 11/16/2023 SN60WF.1 8 0 / [id number] / Patch Xenosure [id number] - [id number] Implanted:Qty : 1 on 12/24/2022 by Jean Garcia MD at OR [facility] Left: Femoral Artery [employer] [id number] 08/15/2028 E0.8P8 / [id number] / [id number] documented as of this encounter Advance Directives [...] and were consensually agreed upon. Care Teams Grey Percher Relationship Specialty Start Date End Date Rohan Mckenzie, [address] [place] [facility] [address] PCP - General Family Medicine 05/27/16 documented as of this encounter
--- OUTSIDE RECORDS SUMMARY | 2023-06-16 01:44 | External Medical Summary | Summary of Care ---
Author Name Unknown Organization [facility] Address [address] [place] [address] Phone [phone] Care Team Providers Care Care Trainer Name Role Phone Jordan Mckenziee Brittney CESPEDES Primary Care Provider [phone] Reason for Visit * Reason Comments Follow Up Encounter Details Date Type Department Care Team Description 01/20/2023 Office Visit Vascular Surgery, [facility] [address] [facility] [place] [address] Jean Garcia MD [address] [place] [address] PVD (peripheral vascular disease) (HCC)*; Infrarenal abdominal aortic aneurysm (AAA) without rupture (HCC); Carotid stenosis, non-symptomatic, bilateral Allergies No known active allergiesdocumented as [...] PVD (peripheral vascular disease) 2022 Atherosclerosis of inupiat coronary arter y without angina pectoris 09/15/2022 Lung fibrosis 08/07/2021 Lung nodule 05/30/2021 Overview: Repeat CT in 12/07 Abdominal aortic ectasia 02/19/2021 Overview: Recheck 03/10 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 documented as of this encounter (statuses as of 01/20/2023) Immunizations Name Administration Dates Next Due COVID-19 mRNA, LNP-s, No Pre serve, 2-Dose Series (Carmolex,) 05/27/2021,10/10/2020,09/12/2020 Covid-19, Mrna, Lnp-s, Pf, B ivalent, 30 Mcg, IM, 12 yrs and above (Pfizer) 06/23/2022 Pneumococcal Conjugate Vacci ne, 20-valent (Naeytut27) 07/03/2022 Pneumococcal Polysaccharide PPV23 (Pneumovax) 06/17/2021,04/01/2006 Seasonal [...] 08/07/2015 Smokeless Tobacco: Never Tobacco Cessation:Counseling Given: No Alcohol Use Standard Drinks/Week Comments Yes 0 [...] Sign Reading Time Taken Comments Blood Pressure 140/68 01/20/2023 10:30 AM EDT Pulse 73 01/20/2023 10:30 AM EDT Temperature - - Respiratory Rate - - Oxygen Saturation - - Inhaled Oxygen Concentration - - Weight 116 kg (255 lb 11.2 oz) 01/20/2023 10:30 AM EDT Height - - Body Mass Index 32.83 12/24/2022 6:08 AM EDT documented in this [...] as of this encounter Progress Notes * Micky Dejesus PA-C - 01/20/2023 10:30 AM EDT Date of Service: 01/20/2023 2:07 PM Brandan Morgan is a 67 year old male. Patient being seen in consultation at the request of Rohan Mckenzie DO Chief Complaint: Post op visit S/P LFA endart w/ pericardial patch angioplasty on 12/24/[address] Garcia for occlusive disease Since surgery, doing well. Some LLE edema. No groin pain or drainage. present with today's visit. HPI: Reformed smoker who is under care of photograph enlarger for significant BL foot skin dryness and [...] by mouth in the morning. Misc. 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 ([facility]) I25.118 Essential (primary) hypertension I10 Abdominal aortic ectasia ([facility]) I77.811 Lung nodule R91.1 Lung fibrosis ([facility]) J84.10 Atherosclerosis of inupiat coronary artery without angina pectoris I25.10 PVD (peripheral vascular disease) ([facility]) I73.9 Tinea pedis of both feet B35.3 Infrarenal abdominal aortic aneurysm (AAA) without rupture ([facility]) I71.43 Carotid stenosis, non-symptomatic, bilateral I65.23 Past Medical History: Diagnosis Date Benign neoplasm of colon 01/06/2013 COLONOSCOPY FLEXIBLE PROXIMAL DIAGNOSTIC performed by Eloy Wilder MD at [facility], NO RESIDUAL POLYP TISSUE REPEAT COLONOSCOPY IN 5 YEAR CHR ISCHEMIC HRT DIS NOS 07/05/2002 COVID 12/2020 Gouty arthropathy 01/11/2004 HLD (hyperlipidemia) HTN (hypertension) hypercholesterol 12/23/1996 OA (osteoarthritis) Oral cancer ([facility]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, T1N0M0 Other specified forms of chronic ischemic heart disease age 41 12/23/1996 angioplasty stent, inferior posterior NC Personal history of colonic polyps 03/28/2009 adenoma repeat in 1 yr, history of villous adenoma 2007 Personal history of colonic polyps 03/28/2010 polyps--hyperplastic tissue repeat in 2 yrs Personal history of colonic polyps 01/06/2013 normal no polyps, benign mucosa post inferior wall NC 12/23/1996 Past Surgical History: Procedure Laterality Date CARDIAC ANGIOPLASTY, PERCUTANEOUS, 1 ARTERY Right 03/07/2020 PTCA, CARDIAC ANGIOPLASTY, PERCUTANEOUS, 1 ARTERY performed by Johny Schmidt DO at CARDIAC LABS [facility] COLONOSCOPY THRU STOMA, W/BIOPSY 03/28/2010 polyps--hyperplastic tissue repeat in 2 yrs COLONOSCOPY W/ BIOPSY (RECTUM) 03/28/2009 adenoma repeat in 1 yr COLONOSCOPY W/ LESION REMOVAL, SNARE 08/12/2007 villous adenoma, repeat 6 months COLONOSCOPY W/ LESION REMOVAL, SNARE 02/10/2008 repeat in 1 yr COLONOSCOPY, DIAGNOSTIC (RECTUM) 01/06/2013 COLONOSCOPY FLEXIBLE PROXIMAL DIAGNOSTIC performed by Eloy Wilder MD at [facility], NO RESIDUAL POLYP TISSUE REPEAT COLONOSCOPY IN 5 YEARS COLONOSCOPY, DIAGNOSTIC (RECTUM) 01/12/2018 adenomatous & hyperplastic polyps, repeat 5 yrs/COLONOSCOPY FLEXIBLE PROXIMAL DIAGNOSTIC performed by Eloy Wilder MD at ENDOSCOPY [facility] CORONARY ARTERY DILATION, [place] age 41 inferior wall NC age 41, 1996, angioplasty, stent at [facility] ENDART COMMON FEMORAL Left 12/24/2022 COMMON FEMORAL ENDARTERECTOMY performed by Jean Garcia MD at OR [facility] EXCISION OF MOUTH FLOOR LESION Right 08/09/2015 EXCISION LESION FLOOR OF MOUTH performed by Rush Landaverde DO at OR [facility] ILIAC ART. REVASC W/ STENT+ANGIOPLASTY Left 12/24/2022 ILIAC ARTERY REVASC W/ STENT+ANGIOPLASTY performed by Jean Garcia MD at OR [facility] INFORMATION Right R ankle fx repair w/ hardware. INJECT DX/THER SUBSTANCE INTERLAMINAR LUMBAR/SACRAL W IMAGE GUIDE 05/20/2022 INJECTION SPINE LUMBAR OR SACRAL performed by Samuel Simon DO at OR [facility] INJECT DX/THER SUBSTANCE INTERLAMINAR LUMBAR/SACRAL W IMAGE GUIDE 09/09/2022 INJECTION SPINE LUMBAR OR SACRAL performed by Samuel Simon DO at OR [facility] IR ARTERIOGRAM EXTREMITY UNILATERAL Left 12/24/2022 IMAGING SUPERVISION & INTERPRETATION EXTREMITY UNILATERAL performed by Jean Garcia MDat OR [facility] PELVIS/HIP JOINT SURGERY NEC Left 09/17/2021 UNLISTED PROCEDURE PELVIS OR HIP JOINT performed by Micky Rodriguez DO at OR [facility] PELVIS/HIP JOINT SURGERY NEC Right 12/17/2021 HIP CORE DECOMPRESSION performed by Micky Rodriguez DO at OR [facility] REMOVAL OF APPENDIX age 19 [place] REMOVAL OF NECK LYMPH NODES Right 08/09/2015 SUPRAHYOID LYMPHADENECTOMY performed by Rush Landaverde DO at OR [facility] REMOVAL OF SUBMAXILLARY GLAND Right 08/09/2015 EXCISION SUBMANDIBULAR (SUBMAXILLARY) GLAND performed by Rush Landaverde DO at OR [facility] REMOVE CATARACT, INSERT LENS PROSTH Right 06/27/2014 EXTRACAPSULAR CATARACT REMOVAL WITH INTRAOCULAR LENS performed by Rich Brooks MD at OR [facility] REMOVE CATARACT, INSERT LENS PROSTH Left 07/22/2022 LEFT EXTRACAPSULAR CATARACT REMOVAL WITH INTRAOCULAR LENS performed by Abilio Hensley DO at [facility] SKIN SPLIT GRAFT, FACE/NECK/EARS Right 08/09/2015 SPLIT GRAFT FACE SCALP ETC LESS THAN 100SQ CM performed by Rush Landaverde DO at [facility] Family History Problem Relation Age of Onset [...] level: Not on file Occupational History 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 Living in [facility] since Social Determinants of Health Financial Resource Strain: Not on file Food Insecurity: Not on file Transportation Needs: Not on file Physical Activity: Not on file Stress: Not on file Social Connections: Not on file Intimate Partner Violence: Not on file Housing Stability: Not on file COMPLETE REVIEW OF SYSTEMS: Cardiovascular: Negative for chest pain, shortness of breath, palpitations, angina or NC Neurological: Negative for stroke, TIA, amaurosis fugax GENERAL MULTI-SYSTEM PHYSICAL EXAM: VITAL SIGNS: Temp 36.4 C (97.6 F) (Tympanic) | Wt 117.3 kg (258 lb 9.6 oz) | BMI 33.20 kg/m | BSA 2.47 m GENERAL MULTI-SYSTEM PHYSICAL EXAM:GENERAL: Normal grooming habits, no acute distress and appears stated age. NECK: No masses and Normal Thyroid. RESPIRATORY: respiratory effort normal and breath sounds normal. CARDIOVASCULAR: no heart murmurs, no varicosities. Mild LLE edema GASTROINTESTINAL: no tenderness, protuberant and abdominal aorta not palpable. LYMPHATIC: cervical lymph nodes normal and inguinial lymph nodes normal. SKIN: no ulcers, no rash, no induration, capillary refill normal and no dependent rubor. Mild-moderate LLE generalized edema PSYCHIATRIC: orientation to time, place and person normal and recent and remote memory normal. EYES: conjunctivae normal, eye lids normal, pupils normal and irises normal. NEUROLOGIC: Cranial nerves intact, Motor function intact and Sensory exam intact LEFT GROIN: Nearly complete healing of incision, no drainage PULSE SCALE: Carotid Right:----Bruit: No Left:----Bruit: No Radial Right: 3 Left: 3 Femoral Right: 2 Left: 2 Popliteal Right: 0 Left: 0 Dorsalis Pedis Right: 0 strong doppler Left: 0 no doppler Posterior Tibial Right: 0 strong doppler Left: 0 monophasic doppler PULSE SCALE: 4=Aneurysmal; 3=Normal; 2=Diminished; 1=Barely Palpable; 0=Absent DIAGNOSTIC STUDIES: 01/13/23 RONAN: 0.95/0.85 01/13/23 LLE Art Duplex: LCFA 53, LDFA 101, LSFA 100/125/147/319/101, L Pop 83/61 The above diagnostic images were directly visualized and independently interpreted by me on 01/20/2023 with results as above 11/04/22 Exercise RONAN: 0.92/0.42 @ rest; 0.96/0.21 @ exercise. Completed 5 mins of study, B/L thigh pain @ 2 mins 11/04/22 CTA w/ runoff: 3.4 cm infrarenal AAA w/ thrombus burden, calcifications within CIAs & CFAs, extensive calcifications mid B/L SFAs, R AT and PT are open, R Peron occluded, L AT/PT/Peron open 09/24/2022 RONAN: 0.93/0.52 09/18/[address]: No ATAA 07/28/2022 Abd Aortic Duplex: Abd aorta 2.6 cm, patent CIAs 02/14/21 Abd Aortic Duplex: Abd aorta 2.6 cm, moderate ilieo fem occlusive disease 08/01/2015 CT Neck: ~ 50% stenosis of LICA, some mild plaques of DEMARIO w/out stenosis LABS: Hemoglobin AIC Results: Lab Results Component Value Date/Time HEMOGLOBIN A1C - [facility] 5.4 12/24/2022 11:36 AM HEMOGLOBIN A1C - [facility] 5.4 07/06/2018 02:04 PM HEMOGLOBIN A1C - [facility] 5.8 10/28/1999 02:13 PM Lab Results Component Value Date/Time CREATININE - [facility] 0.9 12/25/2022 06:06 AM CREATININE - [facility] 1.0 12/24/2022 11:36 AM CREATININE - [facility] 0.9 11/18/2022 11:13 AM CREATININE - [facility] 1.1 03/11/2020 02:05 PM CREATININE - [facility] 1.3 (H) 02/28/2020 01:40 PM CREATININE - [facility] 1.1 08/15/2019 08:15 AM CREATININE, RANDOM URINE - [facility] 73 10/23/2022 09:04 AM CREATININE-OUTSIDE LAB 1.08 02/16/2020 12:00 AM CREATININE-OUTSIDE LAB 0.91 06/19/2015 12:00 AM Lab Results Component Value Date/Time LDL CHOLESTEROL (CALCULATED) - [facility] 115 10/23/2022 09:04 AM LDL CHOLESTEROL (CALCULATED) - [facility] UNINTERPRETABLE RESULT 07/27/2018 09:17 AM LDL CHOLESTEROL (DIRECT MEASURE) - [facility] 102 08/15/2019 08:15 AM LDL CHOLESTEROL (DIRECT MEASURE) - [facility] 89 07/31/2011 07:23 AM The above clinical labs were reviewed by me on 01/20/23 IMPRESSIONS: S/P LFA endart w/ pericardial patch angioplasty on 12/24/[address] Garcia for occlusive disease Healing left groin incision Some re-perfusion edema of LLE Greatly improved resting RONAN from pre op ~50% reduced of L RONAN w/ exercise. Extensive LEFT Iliac and Fem disease on CTA 3.4 cm AAA, asymptomatic ~50% LICA stenosis on 2015 CT neck Improved peeling and discolored skin of B/L feet, had seen Podiatry @ [facility]. 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 S/P stent placements 3 yrs ago @ [facility] and [facility]. S/P stent placement 1996 PLAN: The patient was counseled regarding the pathophysiology and natural history of peripheral vascular disease, as well as the interventional and noninterventional therapeutic options. The patient was counseled regarding the pathophysiology and natural history of carotid disease, as well as the symptoms of CVA/TIA/amaurosis fugax. Continue neosporin to left groin incision Continue elevation of LLE Patient encouraged to walk more, mobilize, increase activities which he is willing to do Continue ASA 81 mg daily for platelet inhibition Continue Zocor 40 and Zetia 10 mg, both daily, for HLD RTC [address] Garcia with Carotid Duplex, Abd Aortic Duplex, LLE Art Duplex and RONAN 1 wk prior to that visit The patient was seen and examined with MD Micky Hernández PA-C Section of Vascular and [place] [address] [phone] I have reviewed the advanced practitioner documentation and agree. I saw and evaluated the patient on date of service referenced in note and have performed the following medically appropriate historyand/or exam: Mr. Morgan RTC S/P LFA endart w/ pericardial patch angioplasty on 12/24/22 Left femoral incision nearly completely healed. No concern for infection. Noted LLE reperfusion edema (improved) Improves with elevation. 01/13/23 RONAN: 0.95/0.85 01/13/23 LLE Art Duplex: LCFA 53, LDFA 101, LSFA 100/125/147/319/101, L Pop 83/61 Continue ASA 81 mg daily for platelet inhibition Continue Zocor 40 and Zetia 10 mg, both daily, for HLD RTC in one year with [facility]. Jean Garcia MD Vascular Surgeon Department of Vascular Surgery [facility] documented in this encounter Plan of Treatment Upcoming Encounters Date Type Specialty Care Team Description 03/04/2023 Office Visit Cardiology Víctor Mcclain MD [address] [place] [address] 04/07/2023 Office Visit Podiatry Leonela Torre, DPM [address] [facility] [place] [address] 05/17/2023 Office Visit Family Medicine Rohan Mckenzie, DO [address] [place] [address] 05/20/2023 Office Visit Ophthalmology Abilio Hensley DO [address] [facility] [place] [address] 05/25/2023 Hospital Encounter Endoscopy Naldo Lyon MD [address] [place] [address] 05/25/2023 Surgery Endoscopy Naldo Lyon MD [address] [place] [address] COLONOSCOPY FLEXIBLE PROXIMAL DIAGNOSTIC Scheduled Orders Name Type Priority Associated Diagnoses Orde r Schedule VASC [place] ART DUP LTD LE Medical Imaging Routine PVD (peripheral vascular disease) (HCC) Ordered: 01/20/2023 VASC ANKLE BRACHIAL INDICES WITHOUT PPG (PAD) Medical Imaging Routine PVD (peripheral vascular disease) (HCC) Ordered: 01/20/2023 VASC AORTIC DUPLEX EVAL-COMPLETE Medical Imaging Routine PVD (peripheral vascular disease) (HCC) Infrarenal abdominal aortic aneurysm (AAA) without rupture (HCC) Carotid stenosis, non-symptomatic, bilateral Ordered: 01/20/2023 VASC DUPLEX CAROTID BILAT Medical Imaging Routine PVD (peripheral vascular disease) (HCC) Infrarenal abdominal aortic aneurysm (AAA) without rupture (HCC) Carotid stenosis, non-symptomatic, bilateral Ordered: 01/20/2023 Scheduled Procedures Name Priority Associated Diagnoses Date/Ti [...] this encounter Medical Devices Implanted Type Area Virology Teacher Device Identifier Shelf Expiration Date Model / Serial / Lot Lens 17.5 Sn60wf - [id number] Implanted:Qty : 1 on 06/27/2014 by Rich Brooks MD at OR [facility] Right: Eye [employer] 03/18/2019 SN60WF.17 5 / [id number] / Lens 18.0 Sn60wf - [id number] - [id number] Implanted:Qty : 1 on 07/22/2022 by Abilio Hensley DO at OR [facility] Left: Eye MIRIAN : SURGICAL 11/16/2023 SN60WF.1 8 0 / [id number] / Patch Xenosure [id number] - [id number] Implanted:Qty : 1 on 12/24/2022 by Jean Garcia MD at OR [facility] Left: Femoral Artery [employer] [id number] 08/15/2028 E0.8P8 / [id number] / [id number] documented as of this encounter Visit Diagnoses Diagnosis PVD (peripheral vascular disease) (HCC)- Primary Peripheral vascular disease, unspecified Infrarenal abdominal aortic aneurysm (AAA) without rupture (HCC) Carotid stenosis, non-symptomatic, bilateral History of colon polyps Personal history of [...] and were consensually agreed upon. Care Teams Care Trainer Relationship Specialty Start Date End Date Rohan Mckenzie, DO [address] [place] [address] PCP - General Family Medicine 05/27/16 documented as of this encounter"
--- OUTSIDE RECORDS SUMMARY | 2023-06-16 01:44 | External Medical Summary ---
Author Name Unknown Address Unknown Organization : Laboratory Report Ordering Provider Test Date Status SUMANTH BECKFORD 12/24/2022 16:55:13 Final Observation Date Value Abnormality Reference (Units ) Status Glucose Point of Care 12/24/2022 16:55:13 166 Above high normal 70-120 (mg/dL) Final Performing Location
--- OUTSIDE RECORDS SUMMARY | 2023-06-16 01:44 | External Medical Summary | Summary of Care ---
Author Name Unknown Organization [facility] Address [address] [place] [address] Phone [phone] Care Team Providers Care Burr Sander Name Role Phone Rohan Mckenzie DO Primary Care Provider [phone] Reason for Visit * Reason Comments Follow Up Encounter Details Date Type Department Care Team Description 01/06/2023 Office Visit Vascular Surgery, [facility] [address] [facility] [place] [address] Jean Garcia MD [address] [place] [address] S/P angioplasty with stent*; Infrarenal abdominal aortic aneurysm (AAA) without rupture (HCC); Essential (primary) hypertension; Dyslipidemia, goal LDL below 100; Carotid stenosis, non-symptomatic, bilateral; PVD (peripheral vascular disease) (HCC) Allergies No known active allergiesdocumented as of this encounter (statuses as of 01/06/2023) Medications Medication Sig Dispensed Refills Start Date [...] as of this encounter (statuses as of 01/06/2023) Active Problems Problem Noted Date Tinea pedis of both feet 11/18/2022 Infrarenal abdominal aortic aneurysm (AA A) without rupture 11/18/2022 Carotid stenosis, non-symptomatic, bilat eral 11/18/2022 PVD (peripheral vascular disease) 2022 Atherosclerosis of koi coronary arter y without angina pectoris 09/15/2022 Lung fibrosis 08/07/2021 Lung nodule 05/30/2021 Overview: Repeat CT in 12/07 Abdominal aortic ectasia 02/19/2021 Overview: Recheck 03/10 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 documented as of this encounter (statuses as of 01/06/2023) Immunizations Name Administration Dates Next Due COVID-19 mRNA, LNP-s, No Pre serve, 2-Dose Series (Pfizer) 05/27/2021,10/10/2020,09/12/2020 Covid-19, Mrna, Lnp-s, Pf, B ivalent, 30 Mcg, IM, 12 yrs and above (Pfizer) 06/23/2022 Pneumococcal Conjugate Vacci ne, 20-valent ([id number]) 07/03/2022 Pneumococcal Polysaccharide PPV23 (Pneumovax) 06/17/2021,04/01/2006 Seasonal [...] Sign Reading Time Taken Comments Blood Pressure 142/70 01/06/2023 2:07 PM EDT Pulse 76 01/06/2023 2:07 PM EDT Temperature 36.4 C (97.6 F) 01/06/2023 2:07 PM ED T Respiratory Rate - - Oxygen Saturation - - Inhaled Oxygen Concentration - - Weight 117.3 kg (258 lb 9.6 oz) 01/06/2023 2:07 PM EDT Height - - Body Mass Index 33.2 12/24/2022 6:08 AM EDT documented in this [...] Progress Notes * Micky Dejesus PA-C - 01/06/2023 2:10 PM EDT Date of Service: 01/06/2023 2:07 PM Brandan Morgan is a 67 year old male. Patient being seen in consultation at the request of Rohan Mckenzie DO Chief Complaint: Post op visit S/P LFA endart w/ pericardial patch angioplasty on 12/24/[address] Garcia for occlusive disease Since surgery, doing well. Some LLE edema. No groin pain or drainage He is doing some elevation of LLE Pt instructed to take off Prevena "early" due to malfunction of device present with today's visit. HPI: Reformed smoker who is under care of preschool paraprofessional for significant BL foot skin dryness and [...] by mouth in the morning. Misc. 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 ([facility]) I25.118 Essential (primary) hypertension I10 Abdominal aortic ectasia ([facility]) I77.811 Lung nodule R91.1 Lung fibrosis ([facility]) J84.10 Atherosclerosis of koi coronary artery without angina pectoris I25.10 PVD (peripheral vascular disease) ([facility]) I73.9 Tinea pedis of both feet B35.3 Infrarenal abdominal aortic aneurysm (AAA) without rupture ([facility]) I71.43 Carotid stenosis, non-symptomatic, bilateral I65.23 Past Medical History: Diagnosis Date Benign neoplasm of colon 01/06/2013 COLONOSCOPY FLEXIBLE PROXIMAL DIAGNOSTIC performed by Eloy Wilder MD at ENDOSCOPY [facility], NO RESIDUAL POLYP TISSUE REPEAT COLONOSCOPY IN 5 YEAR CHR ISCHEMIC HRT DIS NOS 07/05/2002 COVID 12/2020 Gouty arthropathy 01/11/2004 HLD (hyperlipidemia) HTN (hypertension) hypercholesterol 12/23/1996 OA (osteoarthritis) Oral cancer ([facility]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, T1N0M0 Other specified forms of chronic ischemic heart disease age 41 12/23/1996 angioplasty stent, inferior posterior TN Personal history of colonic polyps 03/28/2009 adenoma repeat in 1 yr, history of villous adenoma 2007 Personal history of colonic polyps 03/28/2010 polyps--hyperplastic tissue repeat in 2 yrs Personal history of colonic polyps 01/06/2013 normal no polyps, benign mucosa post inferior wall TN 12/23/1996 Past Surgical History: Procedure Laterality Date CARDIAC ANGIOPLASTY, PERCUTANEOUS, 1 ARTERY Right 03/07/2020 PTCA, CARDIAC ANGIOPLASTY, PERCUTANEOUS, 1 ARTERY performed by Johny Schmidt DO at [facility]AC [facility] COLONOSCOPY THRU STOMA, W/BIOPSY 03/28/2010 polyps--hyperplastic tissue repeat in 2 yrs COLONOSCOPY W/ BIOPSY (RECTUM) 03/28/2009 adenoma repeat in 1 yr COLONOSCOPY W/ LESION REMOVAL, SNARE 08/12/2007 villous adenoma, repeat 6 months COLONOSCOPY W/ LESION REMOVAL, SNARE 02/10/2008 repeat in 1 yr COLONOSCOPY, DIAGNOSTIC (RECTUM) 01/06/2013 COLONOSCOPY FLEXIBLE PROXIMAL DIAGNOSTIC performed by Eloy Wilder MD at ENDOSCOPY [facility], NO RESIDUAL POLYP TISSUE REPEAT COLONOSCOPY IN 5 YEARS COLONOSCOPY, DIAGNOSTIC (RECTUM) 01/12/2018 adenomatous & hyperplastic polyps, repeat 5 yrs/COLONOSCOPY FLEXIBLE PROXIMAL DIAGNOSTIC performed by Eloy Wilder MD at ENDOSCOPY [facility] CORONARY ARTERY DILATION, [place] age 41 inferior wall TN age 41, 1996, angioplasty, stent at [facility] ENDART COMMON FEMORAL Left 12/24/2022 COMMON FEMORAL ENDARTERECTOMY performed by Jean Garcia MD at OR [facility] EXCISION OF MOUTH FLOOR LESION Right 08/09/2015 EXCISION LESION FLOOR OF MOUTH performed by Rush Landaverde DO at OR [facility] ILIAC ART. REVASC W/ STENT+ANGIOPLASTY Left 12/24/2022 ILIAC ARTERY REVASC W/ STENT+ANGIOPLASTY performed by Jean Garcia MD at OR [facility] INFORMATION Right R ankle fx repair w/ hardware. INJECT DX/THER SUBSTANCE INTERLAMINAR LUMBAR/SACRAL W IMAGE GUIDE 05/20/2022 INJECTION SPINE LUMBAR OR SACRAL performed by Samuel Simon DO at OR [facility] INJECT DX/THER SUBSTANCE INTERLAMINAR LUMBAR/SACRAL W IMAGE GUIDE 09/09/2022 INJECTION SPINE LUMBAR OR SACRAL performed by Samuel Simon DO at OR [facility] IR ARTERIOGRAM EXTREMITY UNILATERAL Left 12/24/2022 IMAGING SUPERVISION & INTERPRETATION EXTREMITY UNILATERAL performed by Jean Garcia MD atOR [facility] PELVIS/HIP JOINT SURGERY NEC Left 09/17/2021 UNLISTED PROCEDURE PELVIS OR HIP JOINT performed by Micky Rodriguez DO at OR [facility] PELVIS/HIP JOINT SURGERY NEC Right 12/17/2021 HIP CORE DECOMPRESSION performed by Micky Rodriguez DO at OR [facility] REMOVAL OF APPENDIX age 19 [place] REMOVAL OF NECK LYMPH NODES Right 08/09/2015 SUPRAHYOID LYMPHADENECTOMY performed by Rush Landaverde DO at OR [facility] REMOVAL OF SUBMAXILLARY GLAND Right 08/09/2015 EXCISION SUBMANDIBULAR (SUBMAXILLARY) GLAND performed by Rush Landaverde DO at OR [facility] REMOVE CATARACT, INSERT LENS PROSTH Right 06/27/2014 EXTRACAPSULAR CATARACT REMOVAL WITH INTRAOCULAR LENS performed by Rich Brooks MD at OR [facility] REMOVE CATARACT, INSERT LENS PROSTH Left 07/22/2022 LEFT EXTRACAPSULAR CATARACT REMOVAL WITH INTRAOCULAR LENS performed by Abilio Hensley DO at OR [facility] SKIN SPLIT GRAFT, FACE/NECK/EARS Right 08/09/2015 SPLIT GRAFT FACE SCALP ETC LESS THAN 100SQ CM performed by Rush Landaverde DO at OR [facility] Family History Problem Relation Age of Onset [...] level: Not on file Occupational History 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 Living in [facility] since Social Determinants of Health Financial Resource Strain: Not on file Food Insecurity: Not on file Transportation Needs: Not on file Physical Activity: Not on file Stress: Not on file Social Connections: Not on file Intimate Partner Violence: Not on file Housing Stability: Not on file COMPLETE REVIEW OF SYSTEMS: Cardiovascular: Negative for chest pain, shortness of breath, palpitations, angina or TN Neurological: Negative for stroke, TIA, amaurosis fugax [...] normal. CARDIOVASCULAR: no heart murmurs, no varicosities. GASTROINTESTINAL: no tenderness, protuberant and [...] intact and Sensory exam intact LEFT GROIN: Healing incision, no drainage PULSE SCALE: Carotid Right:----Bruit: [...] 08/15/2019 08:15 AM CREATININE, RANDOM URINE - [facility] 73 10/23/2022 09:04 AM CREATININE-OUTSIDE LAB 1.08 02/16/2020 12:00 AM CREATININE-OUTSIDE LAB 0.91 06/19/2015 12:00 AM Lab Results Component Value Date/Time LDL CHOLESTEROL (CALCULATED) - [facility] 115 10/23/2022 09:04 AM LDL CHOLESTEROL (CALCULATED) - [facility] UNINTERPRETABLE RESULT 07/27/2018 09:17 AM LDL CHOLESTEROL (DIRECT MEASURE) - [facility] 102 08/15/2019 08:15 AM LDL CHOLESTEROL (DIRECT MEASURE) - [facility] 89 07/31/2011 07:23 AM The above clinical labs were reviewed by me on 01/06/23 IMPRESSIONS: S/P LFA endart w/ pericardial patch angioplasty on 12/24/[address] Garcia for occlusive disease Healing left groin incision Some re-perfusion edema of LLE ~50% reduced of L RONAN w/ exercise. Extensive LEFT Iliac and Fem disease on CTA 3.4 cm AAA, asymptomatic ~50% LICA stenosis on 2015 CT neck Improved peeling and discolored skin of B/L feet, had seen Podiatry @ [facility]. 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 S/P stent placements 3 yrs ago @ [facility] and [facility]. S/P stent placement 1996 PLAN: The patient was counseled regarding the pathophysiology and natural history of peripheral vascular disease, as well as the interventional and noninterventional therapeutic options. The patient was counseled regarding the pathophysiology and natural history of carotid disease, as well as the symptoms of CVA/TIA/amaurosis fugax. Continue DSD to left groin incision Continue elevation of LLE Patient encouraged to walk more, mobilize, increase activities which he is willing to do Continue ASA 81 mg daily for platelet inhibition Continue Zocor 40 and Zetia 10 mg, both daily, for HLD RTC 01/20/[address] Garcia with LLE Art Duplex and RONAN 1 wk prior to that visit, scheduled 01/13 The patient was seen and examined with MD Micky Hernández PA-C Section of Vascular and Endovascular Surgery [place], [place] [id number] [phone] I have reviewed the advanced practitioner documentation and agree. I saw and evaluated the patient on date of service referenced in note and have performed the following medically appropriate historyand/or exam: Left femoral incision is well approximated. No concern for infection. Noted LLE reperfusion edema. Improves with elevation. Continue ASA 81 mg daily for platelet inhibition Continue Zocor 40 and Zetia 10 mg, both daily, for HLD RTC 01/20/[address] Garcia with LLE Art Duplex and RONAN 1 wk prior to that visit, scheduled 01/13 Plan to see him back on 01/20/23 w/ NIVL. Jena Garcia MD Vascular Surgeon Department of Vascular Surgery [facility] documented in this encounter Plan of Treatment Upcoming Encounters Date Type Specialty Care Team Description 01/13/2023 Imaging Radiology 01/13/2023 Imaging Radiology 01/20/2023 Office Visit Vascular Surgery Jean Garcia MD [address], [place] [id number] 03/04/2023 Office Visit Cardiology V[facility]ctor [facility]clain [facility] [address] [facility] [address] 04/07/2023 Office Visit Podiatry Leonela Torre, DPHilario [address] [facility] [place] [address] 05/17/2023 Office Visit Family Medicine Rohan Mckenzie, DO [address] [place] [address] 05/20/2023 Office Visit Ophthalmology Abilio Hensley DO [address] [facility] [place] [address] 05/25/2023 Hospital Encounter Endoscopy Naldo Lyon MD [address] [place] [address] 05/25/2023 Surgery Endoscopy Naldo Lyon MD [address] [place] [address] COLONOSCOPY FLEXIBLE PROXIMAL DIAGNOSTIC Scheduled Procedures Name [...] this encounter Medical Devices Implanted Type Area Marketing Administrative Assistant Device Identifier Shelf Expiration Date Model / Serial / Lot Lens 17.5 Sn60wf - [id number] Implanted:Qty : 1 on 06/27/2014 by Rich Brooks MD at OR [facility] Right: Eye [employer] 03/18/2019 SN60WF.17 5 / [id number] / Lens 18.0 Sn60wf - [id number] - [id number] Implanted:Qty : 1 on 07/22/2022 by Abilio Hensley DO at OR [facility] Left: Eye MIRIAN : SURGICAL 11/16/2023 SN60WF.1 8 0 / [id number] / Patch Xenosure 0.6ekx6uu - [id number] Implanted:Qty : 1 on 12/24/2022 by Jean Garcia MD at OR [facility] Left: Femoral Artery [employer] [id number] 08/15/2028 E0.8P8 / [id number] / [id number] documented as of this encounter Visit Diagnoses Diagnosis S/P angioplasty with stent- Primary Postsurgical percutaneous transluminal coronary angioplasty status Infrarenal abdominal aortic aneurysm (AAA) without rupture (HCC) Essential (primary) hypertension Unspecified essential hypertension Dyslipidemia, goal LDL below 100 Other and unspecified hyperlipidemia Carotid stenosis, non-symptomatic, bilateral PVD (peripheral vascular disease) (HCC) Peripheral vascular disease, unspecified History of colon polyps Personal history [...] and were consensually agreed upon. Care Teams Burr Sander Relationship Specialty Start Date End Date Rohan Mckenzie, DO [address] [place] [address] PCP - General Family Medicine 05/27/16 documented as of this encounter
--- OUTSIDE RECORDS SUMMARY | 2023-06-16 01:44 | External Medical Summary | Summary of Care ---
Author Name Unknown Organization [facility] Address [address] [place] [address] Phone [phone] Care Team Providers Care Pest Controller Name Role Phone Rohan Mckenzie DO Primary Care Provider [phone] Reason for Visit * Reason Onset Date Comments Advice 12/25/2022 Encounter Details Date Type Department Care Team Description 12/25/2022 Telephone Vascular Surg [facility] [address] [place] [address] Jean Garcia MD [address], [place] [id number] Advice Allergies No known active allergiesdocumented as of [...] PVD (peripheral vascular disease) 2022 Atherosclerosis of [place] coronary arter y without angina pectoris 09/15/2022 Lung fibrosis 08/07/2021 Lung nodule 05/30/2021 Overview: Repeat CT in 12/07 Abdominal aortic ectasia 02/19/2021 Overview: Recheck 03/10 Coronary artery disease of n ative artery of [place] heart with stable angina pectoris 09/19/2020 Essential (primary) hypertension 021 S/P angioplasty with stent 03/07/2020 Coronary artery disease involving huddleston ry bypass graft of [place] heart 03/07/2020 Chronic venous stasis dermatitis 018 [...] Update ICD-10 update of inactive term 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 documented as of this encounter (statuses as of 12/25/2022) Immunizations Name Administration Dates Next Due COVID-19 mRNA, LNP-s, No Pre serve, 2-Dose Series (PWA) 05/27/2021,10/10/2020,09/12/2020 Covid-19, Mrna, Lnp-s, Pf, B ivalent, 30 Mcg, IM, 12 yrs and above (Pfizer) 06/23/2022 Pneumococcal Conjugate Vacci ne, 20-valent ([id number]) 07/03/2022 Pneumococcal Polysaccharide PPV23 (Pneumovax) 06/17/2021,04/01/2006 Seasonal [...] encounter Miscellaneous Notes * Telephone Encounter - Adelaida Humphrey RN - 12/25/2022 2:42 PM EDT Brandan called in stating his wound vac in groin keeps beeping every minute. Spoke with AMANDA Branham, and said for him to remove the vac and keep clean, dry and can place a soft dressing on if he would like. Patient confirmed understanding of instructions by stating what he was to do. documented in this encounter Plan of Treatment Upcoming Encounters Date Type Specialty Care Team Description 01/06/2023 Office Visit Vascular Surgery Jean Garcia MD [address] [place] [address] 01/13/2023 Imaging Radiology 01/13/2023 Imaging Radiology 01/20/2023 Office Visit Vascular Surgery Jean Garcia MD [address] [place] [address] 02/09/2023 Hospital Encounter Endoscopy Naldo Lyon MD [address] [place] [address] 02/09/2023 Surgery Endoscopy Naldo Lyon MD [address] [place] [address] COLONOSCOPY FLEXIBLE PROXIMAL DIAGNOSTIC 03/04/2023 Office Visit Cardiology Víctor Mcclain MD [address] [place] [address] 04/07/2023 Office Visit [facility]ry [facility]re[facility] [address] [facility] [place] [address] 05/17/2023 Office Visit Family Medicine Rohan Mckenzie, DO [address] [place] [address] 05/20/2023 Office Visit Ophthalmology Abilio Hensley, DO [address] [facility] [place] [address] Scheduled Procedures Name Priority Associated Diagnoses Date/Ti me COLONOSCOPY FLEXIBLE PROXIMAL DIAGNOSTIC Recall History of colon polyps 02/09/2023 10:00 AM EDT Health Maintenance Due Date Last Done Comments Depression Screening, Annual for Pts 12 and Over 02/08/2020 02/07/2019 *NEPHROLOGY REFERRAL DUE TO RESISTANT HTN 10/09/2022 COLONOSCOPY-EVERY 5 YRS AGES 18-100 01/12/2023 01/12/2018, 01/12/2018, 01/17/2013, Additional history exists GFR 12/26/2023 12/25/2022, 06/02/2023, [...] this encounter Medical Devices Implanted Type Area Financial Agent Device Identifier Shelf Expiration Date Model / Serial / Lot Lens 17.5 Sn60wf - [id number] Implanted:Qty : 1 on 06/27/2014 by Rich Brooks MD at OR [facility] Right: Eye [employer] 03/18/2019 SN60WF.17 5 / [id number] / Lens 18.0 Sn60wf - [id number] - [id number] Implanted:Qty : 1 on 07/22/2022 by Abilio Hensley DO at OR [facility] Left: Eye MIRIAN : SURGICAL 11/16/2023 SN60WF.1 8 0 / [id number] / Patch Xenosure [id number] - [id number] Implanted:Qty : 1 on 12/24/2022 by Jean Garcia MD [place] [facility] Left: Femoral Artery [employer] [id number] 08/15/2028 E0.8P8 / [id number] / [id number] documented as of this encounter Advance Directives Latest Code Status on File Code Status Date Activated Date Inactivated Comments Full Code 12/24/2022 10:48 AM This order reflects the patients wishes and [...] and were consensually agreed upon. Care Teams Pest Controller Relationship Specialty Start Date End Date Rohan Mckenzie, DO [address] [place] [address] PCP - General Family Medicine 05/27/16 documented as of this encounter
--- OUTSIDE RECORDS SUMMARY | 2023-06-16 01:44 | External Medical Summary ---
Author Name Unknown Address Unknown Organization K01:[facility] [address] [place] [address] Laboratory Report Ordering Provider Test Date Status GILDA DIEHL 12/24/2022 11:36:00 Final Observation Date Value Abnormality Reference (Units ) Status HbA1C 12/24/2022 11:36:00 5.4 4.0-5.6 (% ) Final The use of HbA1c to monitor glycemic status is based on normal hemoglobin and HbA composition. This test should not be used in patients with abnormal hemoglobin that affects the half life of the red blood cell or the in vivo glycation rates. Glucose, estimated average 12/24/2022 11:36:00 108 <126 (mg/dL) Final Performing Location [facility] [address] [place] [address]
--- OUTSIDE RECORDS SUMMARY | 2023-06-16 01:44 | External Medical Summary ---
Author Name Unknown Address Unknown Organization : Laboratory Report Ordering Provider Test Date Status SUMANTH BECKFORD 12/24/2022 12:02:23 Final Observation Date Value Abnormality Reference (Units ) Status Glucose Point of Care 12/24/2022 12:02:23 126 Above high normal 70-120 (mg/dL) Final Performing Location
--- OUTSIDE RECORDS SUMMARY | 2023-06-16 01:44 | External Medical Summary | Summary of Care ---
Author Name Unknown Organization [facility] Address [address] [facility] [place] [address] Phone [phone] Care Team Providers Care Chemical Preparer Name Role Phone Rohan Mckenzie DO Primary Care Provider [phone] Encounter Details Date Type Department Care Team [...] PVD (peripheral vascular disease) 2022 Atherosclerosis of [place] coronary arter y without angina pectoris 09/15/2022 Lung fibrosis 08/07/2021 Lung nodule 05/30/2021 Overview: Repeat CT in 12/07 Abdominal aortic ectasia 02/19/2021 Overview: Recheck 03/10 Coronary artery disease of n ative artery of [place] heart with stable angina pectoris 09/19/2020 Essential (primary) hypertension 021 S/P angioplasty with stent 03/07/2020 Coronary artery disease involving huddleston ry bypass graft of [place] heart 03/07/2020 Chronic venous stasis dermatitis 018 [...] Update ICD-10 update of inactive term 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 documented as of this encounter (statuses as of 03/04/2023) Immunizations Name Administration Dates Next Due COVID-19 mRNA, LNP-s, No Pre serve, 2-Dose Series ([employer]) 05/27/2021,10/10/2020,09/12/2020 Covid-19, Mrna, Lnp-s, Pf, B ivalent, 30 Mcg, IM, 12 yrs and above ([employer]) 06/23/2022 Pneumococcal Conjugate Vacci ne, 20-valent ([id number]) 07/03/2022 Pneumococcal Polysaccharide PPV23 (Pneumovax) 06/17/2021,04/01/2006 Seasonal [...] Office Visit Podiatry Leonela Torre, DPM [address] [facility] [place] [id number] 05/17/2023 Office Visit Family Medicine [facility] [address] 05/20/2023 Office Visit Ophthalmology Abilio Hensley, DO [address] [facility] [place] [address] 05/25/2023 Hospital Encounter Endoscopy Naldo Lyon MD [address] [place] [address] 05/25/2023 Surgery Endoscopy Naldo Lyon MD [address] [place] [address] COLONOSCOPY FLEXIBLE PROXIMAL DIAGNOSTIC Scheduled Procedures Name [...] this encounter Medical Devices Implanted Type Area Special Education Teaching Assistant Device Identifier Shelf Expiration Date Model / Serial / Lot Lens 17.5 Sn60wf - [id number] Implanted:Qty : 1 on 06/27/2014 by Rich Brooks MD at OR [facility] Right: Eye [employer] 03/18/2019 SN60WF.17 5 / [id number] / Lens 18.0 Sn60wf - [id number] - [id number] Implanted:Qty : 1 on 07/22/2022 by Abilio Hensley DO at OR [facility] Left: Eye MIRIAN : SURGICAL 11/16/2023 SN60WF.1 8 0 / [id number] / Patch Xenosure [id number] - [id number] Implanted:Qty : 1 on 12/24/2022 by Jean Garcia MD at [place] [facility] Left: Femoral Artery [employer] [id number] 08/15/2028 E0.8P8 / [id number] / [id number] documented as of this encounter Advance Directives [...] and were consensually agreed upon. Care Teams Chemical Preparer Relationship Specialty Start Date End Date Rohan Mckenzie, DO [address] [place] [address] PCP - General Family Medicine 05/27/16 documented as of this encounter
--- OUTSIDE RECORDS SUMMARY | 2023-06-16 01:45 | External Medical Summary ---
Author Name Unknown Address Unknown Organization [id number]:LABORATORY [facility] [place] - [address] [place] [address] Laboratory Report Ordering Provider Test Date Status GILDA DIEHL 12/24/2022 11:36:00 Final In PACU Observation Date Value Abnormality Reference (Units ) Status BUN 12/24/2022 11:36:00 16 6-20 (mg/dL) Final Creatinine 12/24/2022 11:36:00 1.0 0.6-1.2 (mg/dL) Final Glomerular filtration rate/1.73 sq M.predicted [Volume Rate/Area] in Serum, Plasma or Blood by Creatinine-based formula (CKD-EPI) 12/24/2022 11:36:00 87 >=60 (mL/min) Final eGFR is calculated based on the CKD-EPI 2020 equation SODIUM 12/24/2022 11:36:00 140 135-146 (m mol/L) Final Potassium 12/24/2022 11:36:00 4.5 3.5-5.1 (m mol/L) Final Cl 12/24/2022 11:36:00 103 98-107 (mm ol/L) Final CO2 12/24/2022 11:36:00 25 22-32 (mmo l/L) Final Anion gap 12/24/2022 11:36:00 12 7-15 (mmol /L) Final Glucose 12/24/2022 11:36:00 127 Above high normal 70 -120 (mg/dL) Final Calcium 12/24/2022 11:36:00 8.5 8.4-10.2 ( mg/dL) Final Performing Location LABORATORY [facility] [place] - [address] [place] [address]
--- OUTSIDE RECORDS SUMMARY | 2023-06-16 01:45 | External Medical Summary ---
Author Name Unknown Address Unknown Organization : Laboratory Report Ordering Provider Test Date Status SUMANTH BECKFORD 12/24/2022 06:58:44 Final Observation Date Value Abnormality Reference (Units ) Status Glucose Point of Care 12/24/2022 06:58:44 107 70-120 (mg/dL) Final Performing Location
--- OUTSIDE RECORDS SUMMARY | 2023-06-16 01:45 | External Medical Summary ---
Author Name Unknown Address Unknown Organization [id number]:LABORATORY [facility] [place] - [address] [facility] [address] Laboratory Report Ordering Provider Test Date Status SHAE MORSE 12/24/2022 06:44:58 Final SCREENING Observation Date Value Abnormality Reference (Units ) Status SARS Coronavirus 2 12/24/2022 06:44:58 Negative N egative Final 2019 Novel Coronavirus not d etected.

This express test was developed and its performance characteristics determined by [facility]. It has not been cleared or approved [...] (RT-PCR) test, or a Centers for Disease Control-acceptable equivalent. The test is performed in a high complexity Clinical Laboratory Improvement Amendments-(CLIA) certified laboratory. The test is acceptable for SARS-CoV-2 diagnosis, surveillance, and travel within the [place] and to most countries. Please check with local testing authorities about requirements before travel.

The validation of bronchial specimens, tracheal aspirates, and sputum for this assay was developed and performance characteristics determined by [facility]. The validation of alternate specimen types has not been cleared or approved by the U.S. Food and Drug Administration (FDA). It has been determined that such clearance is not necessary. Performing Location LABORATORY [facility] [place] - [address] [place] [address]
[2023-06-16 05:04] LABS: Hematocrit (blood only) 40.2 % (42.0-52.0); Hemoglobin 13.9 g/dl (14.0-18.0); Mean Corpuscular Hemoglobin 31.2 pg (25.0-34.0); Mean Corpuscular Hgb Conc 34.6 g/dL (32.0-36.0); Mean Corpuscular Volume 90.3 fL (80.0-100.0); Mean Platelet Volume 9.3 fL (9.4-12.4); Platelet Count 142 K/uL (130-400); RDW Coefficient of Variation 14.4 % (11.5-14.5); RDW Standard Deviation 46.8 fL (36.4-46.3); Red Blood Count 4.45 M/uL (4.70-6.10); White Blood Count 7.01 K/ul (4.8-10.8)
[2023-06-16 05:12] LABS: Albumin Globulin Ratio 1.6 (0.9-2); Albumin Level 3.9 gm/dl (3.4-5.0); BUN Creatinine Ratio 15.1 (10-20); Bilirubin,Total 1.2 mg/dl (0.2-1.0); Calcium 9.3 mg/dl (8.6-10.3); Chol HDL Ratio 2.1 (0-5); Creatinine Clr Calc Pharmacy 110.7 ml/min; Est GFR (Non-African American) 89.7 ml/min; Globulin 2.4 gm/dl (2.5-4.0); Magnesium 2.3 mg/dl (1.7-2.4); Phosphorus 3.8 mg/dl (2.5-4.9); Potassium 4.3 mmol/L (3.5-5.1); Total Protein 6.3 gm/dl (6.0-8.3)
[2023-06-16 05:53] LABS: INR 1.1 (0.9-1.1)
[2023-06-16 06:53] LABS: Estimated Average Glucose 137 mg/dl; Hemoglobin A1C 6.4 % (4.5-5.6)
--- NOTE | 2023-06-16 08:08 | Critical Care Progress Note ---
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 Was deemed Thrombolytic candidate secondary to M3 LT MCA CVA. Patient received Thrombolytics at 1618. Neuro - Acute CVA Calcified thrombus LEFT MCA M3 distribution CAM ICU: NEGATIVE - Post thrombolytics at 1618- Current NIHSS- 5 (Facial droop, aphasia, dysarthria, ataxia) - Risk factors- CAD, HTN, HLD, previous smoker, obesity - CTA of head and neck- M3 distribution, LICA 75% stenosis at origin- Vascular consultation recommended - Blood pressure control with Labetalol as needed - MRI with left frontal lobe - acute/subacute infarcts- M3 branch left MCA thrombosed, mirovascular ischemic changes Chart review reports intolerance to atorvastatin and rosuvastatin- currently on simvastatin and zetia. - ASA 24 hours post thrombolytic- continue defer to neurology for addition of Plavix Follow-up repeat 2D echo - STOP BANG- 4 (AGE, Obesity, HTN,) HIGH RISK- recommend evaluation for DAVIS as outpatient Cardiac - CAD, HTN, HLD, LICA stenosis 75% at origin, High grade stenosis of LECA As above Continue with beta-jamari and simvastatin Respiratory - Right-sided pleural effusion, ex-smoker -BNP 1100 -Likely from underlying heart issue, follow-up 2D echo - Patient with small pleural effusion on CXR- reports recently being treated for bronchitis - Reports he recently had PFTs done at [facility] outpatient, will attempt to obtain - with history of smoking as well as mouth cancer, consider obtaining non-con ct scan of chest to better evaluate lung burnett and pleural effusion - Albuterol PRN GI - No acute needs - NPO for now until speech/swallow evaluation RENAL/LYTES Monitor BUNs/creatinine - NO acute needs at this time ENDO - Continue with ICU hyperglycemia protocol HEME - Monitor H&H ID - No concern for infection at this time --Prophylaxis VTE: IPC GI: None Lines: Peripheral Diet: N.p.o., after swallow eval can start cardiac diet Plan: In/out: -911, urine output 100 Given the right-sided pleural effusion, I will give the patient 20 mg of Lasix Continue with neurochecks Still has small right-sided facial droop. Repeat CT chest at around 4 PM but that is stable the patient will be stable to be downgraded Please note the above document was generated using voice recognition software. It may contain grammatical, syntax or spelling errors.Any formal questions or concerns about the content, text or information contained within the body of this dictation should be directly addressed to the provider for clarification. Admission and Anticipated Discharge Date Admission Date: June 15, 2023 Subjective Patient seen and examined at bedside. No acute distress, no adverse events overnight. Denied any headache, no blurry vision No difficulty swallowing He had some coffee and water in the morning without any issues Denied any weakness Review of Systems 2 Review of Systems: All systems reviewed & are unremarkable except as noted in HPI & below Physical Exam 2 Physical Exam: Constitutional: No acute distress HEENT: EOMI, PERRLA, small right facial droop Respiratory system: Decreased air entry bilaterally, no wheeze, rhonchi, mild crackles bilateral lower lobes CVS: S1-S2 positive, no murmurs or gallops Abdomen: Soft, nontender, nondistended, positive bowel sounds x4 Extremities: +2 pulses bilaterally radialis/ dorsalis pedis, no cyanosis, no edema cranial nerves II to XII grossly intact Neuro: Awake alert oriented x3 Psych: Normal mood and affect G/U: No Duenas Skin: no rashes, warm and dry Lymphatic: no cervical or axillary lymphadenopathy Results & Data Results & Data Vital Signs (Past 12 Hours) Vital Signs Temp Pulse Pulse Resp BP BP Pulse Ox 06/16/23 06:30 90 91 06/16/23 06:13 83 24 125/81 90 06/16/23 06:00 82 17 130/75 93 06/16/23 05:30 76 19 121/68 92 06/16/23 05:21 74 21 135/69 94 06/16/23 05:20 75 20 135/69 95 06/16/23 05:00 76 20 137/76 93 06/16/23 04:30 87 18 125/79 90 06/16/23 04:15 83 20 138/86 94 06/16/23 04:13 82 26 H 138/86 89 L 06/16/23 04:00 80 24 93 06/16/23 03:30 87 21 90 06/16/23 03:16 36.6 C 98 H 22 159/95 H 92 06/16/23 03:13 94 H 37 H 159/95 H 92 06/16/23 03:01 94 H 23 116/86 92 06/16/23 03:00 104 H 33 H 90 06/16/23 02:30 75 16 119/76 91 06/16/23 02:23 80 19 127/62 90 06/16/23 02:20 79 18 127/62 90 06/16/23 02:00 76 19 101/57 L 91 06/16/23 01:34 121/71 06/16/23 01:30 73 20 121/71 90 06/16/23 01:20 75 21 121/56 L 91 06/16/23 01:18 78 20 119/58 L 91 06/16/23 01:17 79 19 119/58 L 90 06/16/23 01:00 85 19 150/79 H 93 06/16/23 00:30 94 H 19 88 L 06/16/23 00:20 73 17 153/82 H 93 06/16/23 00:19 99 H 24 153/82 H 88 L 06/16/23 00:19 84 06/16/23 00:00 77 17 92 06/15/23 23:47 79 23 137/77 93 06/15/23 23:47 75 17 137/77 93 06/15/23 23:30 84 25 H 119/67 89 L 06/15/23 23:27 87 34 H 117/74 90 06/15/23 23:20 83 18 117/74 90 06/15/23 23:00 80 20 141/67 H 92 06/15/23 22:51 84 19 146/85 H 93 06/15/23 22:49 80 23 129/108 H 93 06/15/23 22:46 36.6 C 99 H 29 H 146/85 H 92 06/15/23 22:31 86 24 158/89 H 92 06/15/23 22:30 80 25 H 91 06/15/23 22:20 99 H 20 155/82 H 94 06/15/23 22:17 79 25 H 155/82 H 84 L 06/15/23 22:00 93 H 25 H 91 06/15/23 21:53 105 H 24 136/88 95 06/15/23 21:50 103 H 22 136/88 94 06/15/23 21:35 106 H 28 H 91 06/15/23 21:29 120 H 30 H 84 L 06/15/23 21:17 93 H 24 163/79 H 92 06/15/23 21:16 81 24 163/79 H 92 06/15/23 21:01 92 H 33 H 156/91 H 90 06/15/23 21:00 93 H 25 H 91 06/15/23 20:48 82 20 153/102 H 92 06/15/23 20:47 83 21 153/102 H 92 06/15/23 20:30 93 H 23 92 06/15/23 20:27 88 22 150/81 H 93 06/15/23 20:20 89 24 150/81 H 92 O2 Del Method 06/16/23 06:30 06/16/23 06:13 Room Air 06/16/23 06:00 06/16/23 05:30 06/16/23 05:21 06/16/23 05:20 Room Air 06/16/23 05:00 06/16/23 04:30 06/16/23 04:15 Room Air 06/16/23 04:13 06/16/23 04:00 06/16/23 03:30 06/16/23 03:16 Room Air 06/16/23 03:13 06/16/23 03:01 06/16/23 03:00 06/16/23 02:30 06/16/23 02:23 06/16/23 02:20 Room Air 06/16/23 02:00 06/16/23 01:34 06/16/23 01:30 06/16/23 01:20 06/16/23 01:18 06/16/23 01:17 Room Air 06/16/23 01:00 06/16/23 00:30 06/16/23 00:20 Room Air 06/16/23 00:19 06/16/23 00:19 06/16/23 00:00 06/15/23 23:47 06/15/23 23:47 Room Air 06/15/23 23:30 06/15/23 23:27 06/15/23 23:20 Room Air 06/15/23 23:00 06/15/23 22:51 06/15/23 22:49 06/15/23 22:46 Room Air 06/15/23 22:31 06/15/23 22:30 06/15/23 22:20 Room Air 06/15/23 22:17 06/15/23 22:00 06/15/23 21:53 06/15/23 21:50 Room Air 06/15/23 21:35 06/15/23 21:29 06/15/23 21:17 Room Air 06/15/23 21:16 06/15/23 21:01 06/15/23 21:00 06/15/23 20:48 Room Air 06/15/23 20:47 06/15/23 20:30 06/15/23 20:27 06/15/23 20:20 Room Air Laboratory Results 06/16/23 04:38 06/16/23 04:38 Coding Level of Care Code 93894 SUB INP/OBS CARE 3/50MIN Diagnoses Acute ischemic left MCA stroke I63.512 Dyslipidemia E78.5 Hypertension I10 Pleural effusion J90 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
[2023-06-16] MEDS ORDERED: FUROSEMIDE INJ 20 MG/2 ML VIAL IV ONE ×2 (08:09→15:26)
[2023-06-16] MEDS: METOPROLOL SUCC 25MG EXT REL TAB PO SCH (08:43)
[2023-06-16] MEDS: EZETIMIBE 10 MG TAB PO SCH (08:43)
--- NOTE | 2023-06-16 10:46 | Neurology Consultation ---
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: If follow up noncontrast CT brain is without evidence of hemorrhage: Recommend addition of 75mg clopidogrel daily to already taking daily ASA and high dose statin therapy Recommend vascular surgery consultation to address symptomatic left ICA stenosis (3) Hypertension: Continue blood pressure parameters per IV thrombolytic administration Continue to monitor/control blood pressure Continue to monitor telemetry (4) Dyslipidemia: Continue to monitor lipids/ lipid panel Continue to monitor/control blood glucose Continue high dose statin therapy (5) CAD (coronary artery disease): Continue antiplatelet & statin therapy Monitor/control blood glucose Plan Suspect DAVIS Recommend polysomnography Follow up outpatient Neurology Telehealth Consultation Telehealth Information Telehealth Information: I performed this visit using a real-time telehealth connection between my location and the patients location ([facility]). After connecting through interactive tele-video, patient was identified by name and date of and/or wristband check.Patient (or authorized healthcare veterans contact representative) was informed that this was a telemedicine visit and it was being conducted confidentially over secure lines. My office door was closed and no one else was present in the room with me.Patient (or authorized healthcare veterans contact representative) provided consent to proceed with the visit, expressed an u nderstanding of privacy and security of the telemedicine visit, and gave permission to have a hospital veterans contact representative in the room in order to assist with the visit and to conduct portions of the visit, as needed. I informed the patient (or authorized healthcare veterans contact representative) that I reviewed their record and presented the opportunity for them to ask any questions regarding the visit today. The patient agreed to participate. History of Present Illness Reason for Consultation: Stroke, status post IV thrombolytic administration Requesting Physician: Dr. Valdez Attending Physician: José Miguel Bal MD History of Present Illness 67 yo male with significant history of CAD with stenting, HTN, hyperlipidemia presented with new onset right facial asymmetry dysarthria underwent IV thrombolytic administration. Has undergone CT angiographic studies of head and neck revealing evidence of significantly stenosed left ICA. MRI brain confirms areas of restricted diffusion consistent with left MCA infarct. I have performed televideo consultation. He is alert and oriented. He is currently able to answer questions appropriately and follow simple commands without difficulty. At this time there is no reported cephalgia or cervicalgia. He denies chest pain/palpitations or shortness of breath. No reported changes in vision hearing dizziness syncope seizure like activity or paresthesia. Denies recent fevers chills nausea vomiting changes in bowels or bladder. Denies recent medication changes, recent illness or sick contacts, no reported recent travel. He states he has seen a vascular surgeon for femoral artery in the past. He also reports he has tolerated Plavix in the past following cardiac stenting. I have explained my recommendation to restart this medication in addition to continuing ASA and statin once follow up CT brain without contrast confirms no evidence of hemorrhage. He received IV thrombolytic yesterday with improvement in symptoms. He reports complete resolution of dysarthria- states he feels like he is talking normally again. Facial asymmetry remains however he also reports improvement. He is agreeable to outpatient follow up with adult neurology and agreeable to furtherworkup to address possible underlying obstructive sleep apnea. He has no further concerns at this time. All questions answered. Allergies Allergy/AdvReac Type Severity Reaction Status Date / Time No Known Allergies Allergy Unknown ` Verified 06/15/23 17:28 Home Medications Medication Instructions Recorded Confirmed Type aspirin 81 mg tablet,delayed 81 mg PO QAM #30 tabs 02/17/20 06/15/23 Rx release ezetimibe 10 mg tablet (Zetia) 10 mg PO QAM #30 tabs 02/17/20 06/15/23 Rx nitroglycerin 0.4 mg sublingual 0.4 mg sublingual PRN PRN chest 02/17/20 06/15/23 Rx tablet (Nitrostat) pain #30 tabs allopurinol 300 mg tablet 300 mg PO HS 01/02/21 06/15/23 History losartan 100 mg tablet 100 mg PO DAILY 01/02/21 06/15/23 History metoprolol succinate 50 mg 25 mg PO DAILY 01/02/21 06/15/23 History tablet,extended release 24 hr simvastatin 40 mg tablet 40 mg PO HS 01/02/21 06/15/23 History vitamin B complex 1 tab PO DAILY 01/02/21 06/15/23 History albuterol sulfate 90 mcg/actuation 2 puff inhalation DIRECTED PRN 06/15/23 06/15/23 History aerosol inhaler Shortness Of Breath Or Wheezing econazole 1 % topical cream 1 applic topical 2XWK 06/15/23 06/15/23 History furosemide 40 mg tablet (Lasix) 40 mg PO DAILY 06/15/23 06/15/23 History vitamins A,C,U-kkyr-zrjyhw 4,296 1 cap PO QAM 06/15/23 06/15/23 History mcg-226 mg-90 mg capsule (PreserVision AREDS) Patient History Medical History (Updated 06/16/23 @ 10:42 by Zenon Collins DO) Mouth cancer Neuropathic foot ulcer Nonsustained ventricular tachycardia History of tobacco abuse Hypertension Dyslipidemia NSTEMI (non-ST elevated myocardial infarction) Total of 4. 1997 Circumflex, 02/16/2020 Proximal LAD, 03/07/2020 Proximal and Mid RCA CAD (coronary artery disease) NSVT (nonsustained ventricular tachycardia) Ischemic cardiomyopathy Surgical History History of colonoscopy with polypectomy multiple - prior villous adenoma in 2007 History of oral surgery excision of right mouth floor lesion, right submandibular gland, suprahyoid lymphadenectomy - 2016 History of cataract extraction History of appendectomy Stented coronary artery H/O heart artery stent Family History Father Heart disease Prostate cancer Brother Heart disease Social History Smoking Status: Former smoker Second Hand Exposure: No; Do You Dip or Chew Tobacco: No; Hx Alcohol Use: Yes Alcohol type: beer Hx Substance Use: No Preferred Language: Italian Communication Ability: Effective Rug Cleaning Supervisor Required: No Beliefs That Will Affect Care: None marital status: Current Living Situation: Spouse Other Information That Helps Us Care for You: No Feels Safe at Home: Yes Safety Concerns: Feels Safe At This Time Assistive Devices: None Physical Exam Neurological Examination: Mental Status: Awake and alert. Oriented to person, place, and time. Fluency naming repetition and comprehension appear grossly intact. Affect remains appropriate. CN testing: I: Denies changes in ability to smell II:Reports no changes in visual acuity III/IV/: No evidence of gaze preference, hippus, nystagmus or roving eye movements V: Facial sensation reportedly grossly intact to light touch bilaterally VII: Right CN VII UMN palsy remains VIII: Hearing appears grossly intact to loud voice bilaterally IX/X: Palate appears to elevate symmetrically XI: Shoulder shrug appears symmetric/ grossly intact bilaterally XII: Tongue protrudes midline without evidence of biting Motor exam: Strength appears grossly intact in all extremities Tone & bulk appear appropriate Sensory: Sensation is reportedly grossly intact throughout Coordination: Finger to nose and heel to cortez were intact. No apparent evidence of dysmetria or dysdiadochokinesia Reflexes:deferred. Gait: Deferred Results & Data Vital Signs (Past 12 Hours) Vital Signs Temp Pulse Pulse Resp BP BP Pulse Ox 06/16/23 09:20 36.7 C 93 H 18 150/78 H 92 06/16/23 08:20 36.8 C 88 18 129/72 95 06/16/23 07:20 36.7 C 77 18 149/84 H 92 06/16/23 06:30 90 91 06/16/23 06:13 83 24 125/81 90 06/16/23 06:00 82 17 130/75 93 06/16/23 05:30 76 19 121/68 92 06/16/23 05:21 74 21 135/69 94 06/16/23 05:20 75 20 135/69 95 06/16/23 05:00 76 20 137/76 93 06/16/23 04:30 87 18 125/79 90 06/16/23 04:15 83 20 138/86 94 06/16/23 04:13 82 26 H 138/86 89 L 06/16/23 04:00 80 24 93 06/16/23 03:30 87 21 90 06/16/23 03:16 36.6 C 98 H 22 159/95 H 92 06/16/23 03:13 94 H 37 H 159/95 H 92 06/16/23 03:01 94 H 23 116/86 92 06/16/23 03:00 104 H 33 H 90 06/16/23 02:30 75 16 119/76 91 06/16/23 02:23 80 19 127/62 90 06/16/23 02:20 79 18 127/62 90 06/16/23 02:00 76 19 101/57 L 91 06/16/23 01:34 121/71 06/16/23 01:30 73 20 121/71 90 06/16/23 01:20 75 21 121/56 L 91 06/16/23 01:18 78 20 119/58 L 91 06/16/23 01:17 79 19 119/58 L 90 06/16/23 01:00 85 19 150/79 H 93 06/16/23 00:30 94 H 19 88 L 06/16/23 00:20 73 17 153/82 H 93 06/16/23 00:19 99 H 24 153/82 H 88 L 06/16/23 00:19 84 06/16/23 00:00 77 17 92 06/15/23 23:47 79 23 137/77 93 06/15/23 23:47 75 17 137/77 93 06/15/23 23:30 84 25 H 119/67 89 L 06/15/23 23:27 87 34 H 117/74 90 06/15/23 23:20 83 18 117/74 90 06/15/23 23:00 80 20 141/67 H 92 06/15/23 22:51 84 19 146/85 H 93 06/15/23 22:49 80 23 129/108 H 93 06/15/23 22:46 36.6 C 99 H 29 H 146/85 H 92 06/15/23 22:31 86 24 158/89 H 92 06/15/23 22:30 80 25 H 91 O2 Del Method 06/16/23 09:20 Room Air 06/16/23 08:20 Room Air 06/16/23 07:20 Room Air 06/16/23 06:30 06/16/23 06:13 Room Air 06/16/23 06:00 06/16/23 05:30 06/16/23 05:21 06/16/23 05:20 Room Air 06/16/23 05:00 06/16/23 04:30 06/16/23 04:15 Room Air 06/16/23 04:13 06/16/23 04:00 06/16/23 03:30 06/16/23 03:16 Room Air 06/16/23 03:13 06/16/23 03:01 06/16/23 03:00 06/16/23 02:30 06/16/23 02:23 06/16/23 02:20 Room Air 06/16/23 02:00 06/16/23 01:34 06/16/23 01:30 06/16/23 01:20 06/16/23 01:18 06/16/23 01:17 Room Air 06/16/23 01:00 06/16/23 00:30 06/16/23 00:20 Room Air 06/16/23 00:19 06/16/23 00:19 06/16/23 00:00 06/15/23 23:47 06/15/23 23:47 Room Air 06/15/23 23:30 06/15/23 23:27 06/15/23 23:20 Room Air 06/15/23 23:00 06/15/23 22:51 06/15/23 22:49 06/15/23 22:46 Room Air 06/15/23 22:31 06/15/23 22:30 Laboratory Results Abnormal lab results 06/15/23 06/15/23 06/15/23 Range/Units 16:03 16:09 17:07 RBC 4.41 L (4.70-6.10) M/uL Hgb 13.9 L (14.0-18.0) g/dl Hct 40.5 L (42.0-52.0) % RDW Std Deviation 48.2 H (36.4-46.3) fL MPV (9.4-12.4) fL Eddy # (Auto) 0.87 H (0.11-0.59) K/uL PT 12.1 H (9.0-12.0) Seconds Sodium 135 L (136-145) mmol/L Chloride 97 L (98-107) mmol/L Glucose 117 H (70-99(Fasting)) mg/dl POC Glucose 121 H (70-99) mg/dl Hemoglobin A1c (4.5-5.6) % Total Bilirubin 1.1 H (0.2-1.0) mg/dl B-Natriuretic Peptide (0-100) pg/ml Globulin (2.5-4.0) gm/dl 06/15/23 06/16/23 Range/Units 17:30 04:38 RBC 4.45 L (4.70-6.10) M/uL Hgb 13.9 L (14.0-18.0) g/dl Hct 40.2 L (42.0-52.0) % RDW Std Deviation 46.8 H (36.4-46.3) fL MPV 9.3 L (9.4-12.4) fL Eddy # (Auto) (0.11-0.59) K/uL PT (9.0-12.0) Seconds Sodium (136-145) mmol/L Chloride (98-107) mmol/L Glucose 106 H (70-99(Fasting)) mg/dl POC Glucose (70-99) mg/dl Hemoglobin A1c 6.4 H (4.5-5.6) % Total Bilirubin 1.2 H (0.2-1.0) mg/dl B-Natriuretic Peptide 1011 H (0-100) pg/ml Globulin 2.4 L (2.5-4.0) gm/dl Diagnostic Findings Chest X-Ray 06/15/23 15:51 XR chest 1V portable HISTORY: 67 years-old Male neuro deficit, acute stroke suspected acute stroke like symptoms COMPARISON: 01/02/2021 TECHNIQUE: AP view of the chest FINDINGS: Cardiac silhouette is enlarged. Small moderate right pleural effusion with mild right basilar consolidation. Pulmonary vascular congestion. No pneumothorax. No acute fracture. IMPRESSION: 1. Cardiomegaly with pulmonary vascular congestion. 2. [id number] right pleural effusion with right basilar consolidation. ACT 112: Negative or not required by law. The above report was generated using voice recognition software. It may contain grammatical, syntax or spelling errors. Electronically signed by: Mina Vu M.D. 06/15/2023 5:[address] 06/15/23 15:[address] OF THE BRAIN; CT ANGIOGRAM OF THE BRAIN; CT ANGIOGRAM OF THE NECK CLINICAL HISTORY: Neurological deficit. Stroke like symptoms. COMPARISON STUDY: CT of the brain dated 03/11/2014. TECHNIQUE: Unenhanced axial CT scan of the brain is performed. Subsequently, following the IV administration of 119 of Optiray 320, CT angiogram of the head and neck was performed from the aortic arch to the vertex. Images are reviewed in the axial, sagittal, and coronal planes. 3-D MIPS images are created and assessed. IV contrast was administered without complication. All measurements were calculated based on NASCET criteria. A dose lowering technique was utilized adhering to the principles of ALARA. CT DOSE: 1243.49 mGy.cm FINDINGS: Brain parenchyma: There is age-related changes noting minimal microangiopathic disease. There is no hemorrhage or mass effect. There is no evidence of enhancing mass lesion on the angiogram phase images. The ventricles, sulci, and cisterns are prominent secondary to involutional change. Thapa-white matter differentiation is preserved. No extra-axial fluid collection is seen. Thoracic aorta: There is atherosclerotic calcification of the thoracic aorta. Visualized portions of the thoracic aorta are normal in caliber. The aortic arch demonstrates standard 3-vessel anatomy. Right carotid arterial system: The right common carotid artery is widely patent, as are the right internal and external carotid arteries. Calcified plaque is noted in the carotid bulb. Left carotid arterial system: The left common carotid artery is widely patent. There is advanced atherosclerotic plaque in the carotid bulb. This causes approximately 75% focal stenosis at the origin of the left internal carotid artery. The mid-distal portions of the left internal carotid artery are widely patent. There is also high-grade stenosis at the origin of the left external carotid artery. Vertebral arteries: The vertebral arteries are patent bilaterally and codominant. Subclavian arteries: Widely patent bilaterally. Intracranial vasculature: The internal carotid arteries are patent at the skull base, as are the anterior cerebral arteries. Suspect a small calcified thrombus within a peripheral branch of the left middle cerebral artery along the sylvian fissure. This is best seen on axial image #[address] angiogram examination. The middle cerebral arteries are otherwise patent bilaterally. The vertebrobasilar system and posterior cerebral arteries are patent. The vertebral arteries are codominant. No aneurysm is seen. Jugular veins: Patent bilaterally. Dural sinuses: Patent. Lung apices: A moderate right pleural effusion is partially visualized. Upper lobe lung parenchyma is otherwise clear as imaged. Soft tissues: The visualized pharyngeal soft tissues are normal in appearance noting angiographic phase technique. The oropharyngeal airway appears widely patent. The salivary and thyroid glands are normal in appearance. No cervical lymphadenopathy is seen. A 2.6 cm lipoma is noted in the left occipital scalp. Skeletal structures: The calvarium appears intact. The cervical spine is m aintained noting multilevel spondylosis. Orbits: The bony orbits are intact. Orbital contents are normal as visualized noting bilateral ocular lens implants. Sinuses and mastoids: There is mild mucosal thickening within the maxillary antra. The remaining paranasal sinuses are clear. The mastoid air cells are well pneumatized. IMPRESSION: 1. Suspect a small calcified thrombus within a peripheral branch of the left middle cerebral artery along the sylvian fissure. There is focal vessel cut off at this site and this likely represents acute stroke. 2. There is no hemorrhage or mass effect. Thapa-white matter differentiation is maintained. 3. The remaining intracranial vessels are patent. 4. There is approximately 75% focal stenosis at the origin of the left internal carotid artery. 5. The right carotid systematic and the vertebral arteries are patent. 6. A right pleural effusion is partially imaged. 7. There is also high-grade stenosis at the origin of the left external carotid artery. ACT 112: Negative or not required by law. Electronically signed by: Navin Yip M.D. 06/15/2023 4:22 PM Head CTA 06/15/23 15:[address] OF THE BRAIN; CT ANGIOGRAM OF THE BRAIN; CT ANGIOGRAM OF THE NECK CLINICAL HISTORY: Neurological deficit. Stroke like symptoms. COMPARISON STUDY: CT of the brain dated 03/11/2014. TECHNIQUE: Unenhanced axial CT scan of the brain is performed. Subsequently, following the IV administration of 119 of Optiray 320, CT angiogram of the head and neck was performed from the aortic arch to the vertex. Images are reviewed in the axial, sagittal, and coronal planes. 3-D MIPS images are created and assessed. IV contrast was administered without complication. All measurements were calculated based on NASCET criteria. A dose lowering technique was utilized adhering to the principles of ALARA. CT DOSE: 1243.49 mGy.cm FINDINGS: Brain parenchyma: There is age-related changes noting minimal microangiopathic disease. There is no hemorrhage or mass effect. There is no evidence of enhancing mass lesion on the angiogram phase images. The ventricles, sulci, and cisterns are prominent secondary to involutional change. Thapa-white matter differentiation is preserved. No extra-axial fluid collection is seen. Thoracic aorta: There is atherosclerotic calcification of the thoracic aorta. Visualized portions of the thoracic aorta are normal in caliber. The aortic arch demonstrates standard 3-vessel anatomy. Right carotid arterial system: The right common carotid artery is widely patent, as are the right internal and external carotid arteries. Calcified plaque is noted in the carotid bulb. Left carotid arterial system: The left common carotid artery is widely patent. There is advanced atherosclerotic plaque in the carotid bulb. This causes approximately 75% focal stenosis at the origin of the left internal carotid artery. The mid-distal portions of the left internal carotid artery are widely patent. There is also high-grade stenosis at the origin of the left external carotid artery. Vertebral arteries: The vertebral arteries are patent bilaterally and codominant. Subclavian arteries: Widely patent bilaterally. Intracranial vasculature: The internal carotid arteries are patent at the skull base, as are the anterior cerebral arteries. Suspect a small calcified thrombus within a peripheral branch of the left middle cerebral artery along the sylvian fissure. This is best seen on axial image #[address] angiogram examination. The middle cerebral arteries are otherwise patent bilaterally. The vertebrobasilar system and posterior cerebral arteries are patent. The vertebral arteries are codominant. No aneurysm is seen. Jugular veins: Patent bilaterally. Dural sinuses: Patent. Lung apices: A moderate right pleural effusion is partially visualized. Upper lobe lung parenchyma is otherwise clear as imaged. Soft tissues: The visualized pharyngeal soft tissues are normal in appearance noting angiographic phase technique. The oropharyngeal airway appears widely patent. The salivary and thyroid glands are normal in appearance. No cervical lymphadenopathy is seen. A 2.6 cm lipoma is noted in the left occipital scalp. Skeletal structures: The calvarium appears intact. The cervical spine is maintained noting multilevel spondylosis. Orbits: The bony orbits are intact. Orbital contents are normal as visualized noting bilateral ocular lens implants. Sinuses and mastoids: There is mild mucosal thickening within the maxillary antra. The remaining paranasal sinuses are clear. The mastoid air cells are well pneumatized. IMPRESSION: 1. Suspect a small calcified thrombus within a peripheral branch of the left middle cerebral artery along the sylvian fissure. There is focal vessel cut off at this site and this likely represents acute stroke. 2. There is no hemorrhage or mass effect. Thapa-white matter differentiation is maintained. 3. The remaining intracranial vessels are patent. 4. There is approximately 75% focal stenosis at the origin of the left internal carotid artery. 5. The right carotid systematic and the vertebral arteries are patent. 6. A right pleural effusion is partially imaged. 7. There is also high-grade stenosis at the origin of the left external carotid artery. ACT 112: Negative or not required by law. Electronically signed by: Navin Yip M.D. 06/15/2023 4:22 PM Neck CTA 06/15/23 15:[address] OF THE BRAIN; CT ANGIOGRAM OF THE BRAIN; CT ANGIOGRAM OF THE NECK CLINICAL HISTORY: Neurological deficit. Stroke like symptoms. COMPARISON STUDY: CT of the brain dated 03/11/2014. TECHNIQUE: Unenhanced axial CT scan of the brain is performed. Subsequently, following the IV administration of 119 of Optiray 320, CT angiogram of the head and neck was performed from the aortic arch to the vertex. Images are reviewed in the axial, sagittal, and coronal planes. 3-D MIPS images are created and assessed. IV contrast was administered without complication. All measurements were calculated based on NASCET criteria. A dose lowering technique was utili zed adhering to the principles of ALARA. CT DOSE: 1243.49 mGy.cm FINDINGS: Brain parenchyma: There is age-related changes noting minimal microangiopathic disease. There is no hemorrhage or mass effect. There is no evidence of enhancing mass lesion on the angiogram phase images. The ventricles, sulci, and cisterns are prominent secondary to involutional change. Thapa-white matter differentiation is preserved. No extra-axial fluid collection is seen. Thoracic aorta: There is atherosclerotic calcification of the thoracic aorta. Visualized portions of the thoracic aorta are normal in caliber. The aortic arch demonstrates standard 3-vessel anatomy. Right carotid arterial system: The right common carotid artery is widely patent, as are the right internal and external carotid arteries. Calcified plaque is noted in the carotid bulb. Left carotid arterial system: The left common carotid artery is widely patent. There is advanced atherosclerotic plaque in the carotid bulb. This causes approximately 75% focal stenosis at the origin of the left internal carotid artery. The mid-distal portions of the left internal carotid artery are widely patent. There is also high-grade stenosis at the origin of the left external carotid artery. Vertebral arteries: The vertebral arteries are patent bilaterally and codominant. Subclavian arteries: Widely patent bilaterally. Intracranial vasculature: The internal carotid arteries are patent at the skull base, as are the anterior cerebral arteries. Suspect a small calcified thrombus within a peripheral branch of the left middle cerebral artery along the sylvian fissure. This is best seen on axial image #[address] angiogram examination. The middle cerebral arteries are otherwise patent bilaterally. The vertebrobasilar system and posterior cerebral arteries are patent. The vertebral arteries are codominant. No aneurysm is seen. Jugular veins: Patent bilaterally. Dural sinuses: Patent. Lung apices: A moderate right pleural effusion is partially visualized. Upper lobe lung parenchyma is otherwise clear as imaged. Soft tissues: The visualized pharyngeal soft tissues are normal in appearance noting angiographic phase technique. The oropharyngeal airway appears widely patent. The salivary and thyroid glands are normal in appearance. No cervical lymphadenopathy is seen. A 2.6 cm lipoma is noted in the left occipital scalp. Skeletal structures: The calvarium appears intact. The cervical spine is maintained noting multilevel spondylosis. Orbits: The bony orbits are intact. Orbital contents are normal as visualized noting bilateral ocular lens implants. Sinuses and mastoids: There is mild mucosal thickening within the maxillary antra. The remaining paranasal sinuses are clear. The mastoid air cells are well pneumatized. IMPRESSION: 1. Suspect a small calcified thrombus within a peripheral branch of the left middle cerebral artery along the sylvian fissure. There is focal vessel cut off at this site and this likely represents acute stroke. 2. There is no hemorrhage or mass effect. Thapa-white matter differentiation is maintained. 3. The remaining intracranial vessels are patent. 4. There is approximately 75% focal stenosis at the origin of the left internal carotid artery. 5. The right carotid systematic and the vertebral arteries are patent. 6. A right pleural effusion is partially imaged. 7. There is also high-grade stenosis at the origin of the left external carotid artery. ACT 112: Negative or not required by law. Electronically signed by: Navin Yip M.D. 06/15/2023 4:22 PM Brain MRI 06/15/23 17:23 MR brain wo con HISTORY: 67 years-old Male stroke acute strokelike symptoms COMPARISON: Head CT of same day TECHNIQUE: Multiplanar multisequence MRI the brain was obtained without the use of IV contrast. FINDINGS: Ill-defined areas of slightly increased diffusion-weighted signal and decreased ADC signal noted within the left frontal lobe cortex measuring up to approximately 2 cm with possible extension into the operculum/insular ribbon. Involutional changes with mild T2/FLAIR hyperintense foci suggestive of probable chronic microvascular ischemic disease. No pathologic loosening artifact. No acute intracranial hemorrhage, midline shift, abnormal extra-axial collection, hydrocephalus or intra-axial mass. Cerebral venous sinuses appear patent. Thrombosed distal left MCA branches again noted, better seen on the comparison CTA. Prior bilateral lens repair. The skull, orbits and soft tissues are otherwise unremarkable. Mastoid air cells are clear. Mild mucosal thickening of the paranasal sinuses. IMPRESSION: 1. Ill-defined areas of slightly increased diffusion-weighted signal within the left frontal lobe suggestive of acute or subacute infarcts. 2. Involutional changes with mild chronic microvascular ischemic disease. 3. Thrombosed M3 branch of the left middle cerebral artery, better evaluated on the comparison CTA of the head. ACT 112: Negative or not required by law. The above report was generated using voice recognition software. It may contain grammatical, syntax or spelling errors. Electronically signed by: Mina Vu M.D. 06/15/2023 7:39 PM Medications Administered Home Medications Medication Instructions Recorded Confirmed Last Taken aspirin 81 mg tablet,delayed 81 mg PO QAM #30 tabs 02/17/20 06/15/23 01/02/21 release ezetimibe 10 mg tablet (Zetia) 10 mg PO QAM #30 tabs 02/17/20 06/15/23 01/02/21 nitroglycerin 0.4 mg sublingual 0.4 mg sublingual PRN PRN chest 02/17/20 06/15/23 Unknown tablet (Nitrostat) pain #30 tabs allopurinol 300 mg tablet 300 mg PO HS 01/02/21 06/15/23 01/01/21 losartan 100 mg tablet 100 mg PO DAILY 01/02/21 06/15/23 01/02/21 metoprolol succinate 50 mg 25 mg PO DAILY 01/02/21 06/15/23 01/02/21 tablet,extended release 24 hr simvastatin 40 mg tablet 40 mg PO HS 01/02/21 06/15/23 01/01/21 vitamin B complex 1 tab PO DAILY 01/02/21 06/15/23 Unknown albuterol sulfate 90 mcg/actuation 2 puff inhalation DIRECTED PRN 06/15/23 06/15/23 Unknown aerosol inhaler Shortness Of Breath Or Wheezing econazole 1 % topical cream 1 applic topical 2XWK 06/15/23 06/15/23 Unknown furosemide 40 mg tablet (Lasix) 40 mg PO DAILY 06/15/23 06/15/23 Unknown vitamins A,C,S-mvym-vxbxcx 4,296 1 cap PO QAM 06/15/23 06/15/23 Unknown mcg-226 mg-90 mg capsule (PreserVision AREDS) Active Medications Generic Name Dose Route Start Last Admin Trade Name Freq PRN Reason Stop Dose Admin Ezetimibe 10 mg 06/16/23 09:00 06/16/23 08:43 Ezetimibe 10 Mg Tab PO 07/16/23 08:59 10 mg QAM ANGELES Administration Metoprolol Succinate 25 mg 06/16/23 09:00 06/16/23 08:43 Metoprolol Succ 25mg Ext Rel Tab PO 07/16/23 08:59 25 mg DAILY ANGELES Administration Simvastatin 40 mg 06/15/23 21:00 06/15/23 20:32 Simvastatin 40 Mg Tab PO 07/15/23 20:59 Not Given HS ANGELES
--- NOTE | 2023-06-16 11:49 | Electrocardiogram Report ---
Test Reason : Blood Pressure : / mmHG Vent. Rate : 085 BPM Atrial Rate : 085 BPM P-R Int : 120 ms QRS Dur : 108 ms QT Int : 430 ms P-R-T Axes : 038 019 051 degrees QTc Int : 511 ms Sinus rhythm with frequent Premature ventricular complexes Low voltage QRS Cannot rule out Anterior infarct (cited on or before 16-JUN-2023) Prolonged QT Abnormal ECG When compared with ECG of 15-JUN-2023 16:07, Fusion complexes are no longer Present Confirmed by Kaiser Gutierrez ([id number]) on 06/16/2023 11:49:16 AM Referred By: REFERRED SELF Confirmed By:Adelso Gutierrez
--- NOTE | 2023-06-16 14:04 | Pharmacy Report ---
- Date of Service June 16, 2023 - Pharmacy CVA/TIA Medication Review Medications to Prevent Stroke handout has been added to the patients discharge packet. Antiplatelet(s) * To begin plavix 75 mg in addition to ASA 81 mg 24 hours post TNKase Cholesterol * Consider re-trial or transition to high intensity statin when able to tolerate PO- speech evaluation pending- Chart review reports intolerance to atorvastatin and rosuvastatin- currently on simvastatin and zetia. DVT Prophylaxis * SCD knee Therapeutic Anticoagulation * No history of Afib/Aflutter noted Type 2 Diabetes * Patient does not have a history of T2DM, A1c of 6.4% indicates pre-diabetes
--- NOTE | 2023-06-16 15:12 | Consultation ---
Date of Consultation June 16, 2023 Assessment & Plan (1) Stenosis of left internal carotid artery: This is a gentleman who has a 75% narrowing of his left internal carotid artery origin who had a neurological event which has resolved since administration of tPA. We recommended intervention on his left internal carotid artery. We went over the risks options and benefits of endarterectomy versus TCAR. We did recommend that he have it done within the first 2 weeks post symptoms. At this point he will check with his vascular surgeon at [facility] and follow-up with him for any intervention. Thank you very much for letting us participate in the care of this patient. History of Present Illness Reason for Consultation: Left internal carotid artery stenosis with CVA Attending Physician: José Miguel Bal MD History of Present Illness This is a 67-year-old gentleman who presented to the ED yesterday with dysarthria and aphasia. He did have a right facial droop at that time. He has not had any similar episodes in the past. Workup showed a left MCA occlusion of the distal branch. He did receive tPA. Today he claims that his speech is back to normal as well as his facial expression. He does have a significant heart history with cardiac stents placed in the past. He was a smoker in the past. He denies any claudication. He did have surgery this past December on his left femoral artery done at [facility]. He denies any symptoms of claudication. He does take an aspirin and a statin prior to this admission. Allergies Allergy/AdvReac Type Severity Reaction Status Date / Time No Known Allergies Allergy Unknown ` Verified 06/15/23 17:28 Home Medications Medication Instructions Recorded Confirmed Type aspirin 81 mg tablet,delayed 81 mg PO QAM #30 tabs 02/17/20 06/15/23 Rx release ezetimibe 10 mg tablet (Zetia) 10 mg PO QAM #30 tabs 02/17/20 06/15/23 Rx nitroglycerin 0.4 mg sublingual 0.4 mg sublingual PRN PRN chest 02/17/20 06/15/23 Rx tablet (Nitrostat) pain #30 tabs allopurinol 300 mg tablet 300 mg PO HS 01/02/21 06/15/23 History losartan 100 mg tablet 100 mg PO DAILY 01/02/21 06/15/23 History metoprolol succinate 50 mg 25 mg PO DAILY 01/02/21 06/15/23 History tablet,extended release 24 hr simvastatin 40 mg tablet 40 mg PO HS 01/02/21 06/15/23 History vitamin B complex 1 tab PO DAILY 01/02/21 06/15/23 History albuterol sulfate 90 mcg/actuation 2 puff inhalation DIRECTED PRN 06/15/23 06/15/23 History aerosol inhaler Shortness Of Breath Or Wheezing econazole 1 % topical cream 1 applic topical 2XWK 06/15/23 06/15/23 History furosemide 40 mg tablet (Lasix) 40 mg PO DAILY 06/15/23 06/15/23 History vitamins A,C,U-rmjo-jmjuup 4,296 1 cap PO QAM 06/15/23 06/15/23 History mcg-226 mg-90 mg capsule (PreserVision AREDS) Patient History Medical History (Updated 06/16/23 @ 15:16 by Pardeep Lo MD) Mouth cancer Neuropathic foot ulcer Nonsustained ventricular tachycardia History of tobacco abuse Hypertension Dyslipidemia NSTEMI (non-ST elevated myocardial infarction) Total of 4. 1997 Circumflex, 02/16/2020 Proximal LAD, 03/07/2020 Proximal and Mid RCA CAD (coronary artery disease) NSVT (nonsustained ventricular tachycardia) Ischemic cardiomyopathy Surgical History History of colonoscopy with polypectomy multiple - prior villous adenoma in 2007 History of oral surgery excision of right mouth floor lesion, right submandibular gland, suprahyoid lymphadenectomy - 2016 History of cataract extraction History of appendectomy Stented coronary artery H/O heart artery stent Family History Father Heart disease Prostate cancer Brother Heart disease Social History Smoking Status: Former smoker Second Hand Exposure: No; Do You Dip or Chew Tobacco: No; Hx Alcohol Use: Yes Alcohol type: beer Hx Substance Use: No Preferred Language: Turkmen Communication Ability: Effective [employer] Required: No Beliefs That Will Affect Care: None marital status: Current Living Situation: Spouse Other Information That Helps Us Care for You: No Feels Safe at Home: Yes Safety Concerns: Feels Safe At This Time Assistive Devices: None Review of Systems Review of Systems: All systems reviewed & are unremarkable except as noted in HPI & below Physical Exam Constitutional: WD/WN, vitals as above Neck: trachea midline Respiratory: normal respiratory effort and + respiratory distress Cardiovascular: Rate/Rhythm: regular rate and regular rhythm Vessels: + carotid bruit (Faint 1 on left), femoral pulses present and radial pulses present Extremities: normal capillary refill Gastrointestinal (Abdomen): Inspection/Auscultation: abdomen normal to inspection Neurologic: CN's II-XI intact bilaterally and moves all extremities Psychiatric: Orientation: alert and oriented x 3 Results & Data Vital Signs (Past 12 Hours) Vital Signs Temp Pulse Pulse Resp BP BP Pulse Ox 06/16/23 14:20 77 20 150/76 H 94 06/16/23 13:20 36.7 C 81 22 146/95 H 94 06/16/23 12:20 36.7 C 81 24 132/67 92 06/16/23 11:20 36.7 C 85 22 169/87 H 92 06/16/23 10:20 36.7 C 84 22 144/90 H 93 06/16/23 09:20 36.7 C 93 H 18 150/78 H 92 06/16/23 08:20 36.8 C 88 18 129/72 95 06/16/23 07:20 36.7 C 77 18 149/84 H 92 06/16/23 06:30 90 91 06/16/23 06:13 83 24 125/81 90 06/16/23 06:00 82 17 130/75 93 06/16/23 05:30 76 19 121/68 92 06/16/23 05:21 74 21 135/69 94 06/16/23 05:20 75 20 135/69 95 06/16/23 05:00 76 20 137/76 93 06/16/23 04:30 87 18 125/79 90 06/16/23 04:15 83 20 138/86 94 06/16/23 04:13 82 26 H 138/86 89 L 06/16/23 04:00 80 24 93 06/16/23 03:30 87 21 90 06/16/23 03:16 36.6 C 98 H 22 159/95 H 92 06/16/23 03:13 94 H 37 H 159/95 H 92 O2 Del Method 06/16/23 14:20 Room Air 06/16/23 13:20 Room Air 06/16/23 12:20 Room Air 06/16/23 11:20 Room Air 06/16/23 10:20 Room Air 06/16/23 09:20 Room Air 06/16/23 08:20 Room Air 06/16/23 07:20 Room Air 06/16/23 06:30 06/16/23 06:13 Room Air 06/16/23 06:00 06/16/23 05:30 06/16/23 05:21 06/16/23 05:20 Room Air 06/16/23 05:00 06/16/23 04:30 06/16/23 04:15 Room Air 06/16/23 04:13 06/16/23 04:00 06/16/23 03:30 06/16/23 03:16 Room Air 06/16/23 03:13
--- NOTE | 2023-06-16 15:20 | Hospitalist Progress Note ---
Date of Service June 16, 2023 Assessment & Plan (1) Acute stroke due to embolism of left middle cerebral artery: (2) HTN (hypertension): (3) CAD (coronary artery disease): Plan 67 year old gentleman with past medical history remarkable for obstructive coronary artery disease s/p LALIT RCA 2019, HTN, prior tobacco use, HLD, prior COVID 2019 who presented to [facility] ED 06/15 due to right sided facial droop, dysarthria, and expressive dysphagia and administered TNK on 06/15 at 1618 hrs. Patient admitted to ICU for post-24 hours TNK monitoring. He is being managed for the following: #Acute stroke #Right facial droop #Dysarthria -CT with calcified thrombus of left MCA territory. approximately 75% focal stenosis at the origin of the left internal carotid artery. -MRI brain: s/o acute or subacute infarcts x left frontal lobe -TNK 06/15/2023 at 1618. LDL 36. A1c 6.4 (A1c of 5.4 on 12/24/2022 per OP chart review). -Admitted to ICU for q2 neuro checks - post tnk 24 hr ICU monitoring. -Post [address] ordered, await -ECHO ordered, await -Speech evaled, no difficulty swallowing. -PT/OT ordered, await recs. -Neuro evaled - appreciate recs. Will need f/u as OP. -Vascular sx consulted, await recs. Will need f/u as OP. -DG to pcu/tele when [address] head comes back negative. -Monitor on Telemetry. OP cardiac monitoring, DAPT if f/u CT head neg for bleed. #SANCHEZ #Right Pleural effusion -BNP of 1011; pt w/ rt pl eff on cxr. -Recently home lasix dose increased to 40 mg daily as OP from 20 mg twice a week per pt. -ECHO, await. CT chest , await. - received 20 mg iv lasix today, will give another 20 mg iv lasix. -I/Os, monitor and replete electrolytes. #Heart failure with recovered EF (40-45% from 35%) #Obstructive CAD s/p LALIT to RCA 2019 #HTN #HLD -Hoome regimen: Simvastatin 40mg, Metoprolol XL 25mg daily, Losartan 100mg daily, ASA 81 daily, Zetia 10mg daily, Furosemide 40 mg daily -Unable to complete echo at OP visit 08/20 stroke -Repeat ECHO pending -Grdually resume home meds, asp on hold until 24 CT head back -Monitor on Tele -Monitor Fluid status -Consider Cardiology follow -Resume home regimen as able #Gout: c/w home meds. DVT: SCDs NPO Admit ICU post TNK monitoring Dispo: pt/ot, will need resolution of SANCHEZ. Admission and Anticipated Discharge Date Admission Date: June 15, 2023 Subjective Patient was seen and examined at bedside. Patient was lying semiupright in bed, on room air, NAD, reports resolution of his neurological symptoms/weakness. Patient reports eating okay, denies difficulty swallowing. Denies any new weakness or numbness or tingling. Denies any headache or dizziness. Patient does report some shortness of breath with activity which has been ongoing for a while, recently his outpatient Lasix dose was increased from 20 mg twice a week to 40 mg daily. Physical Exam Physical Exam: GENERAL: Alert and oriented x3. NAD, on RA. HEENT: No pallor, no icterus. Pupils equal, round and reactive to light. Oral mucosa moist. NECK: No JVD, no neck masses. HEART: S1 and S2 heard. Regular rate and rhythm. No murmur, no gallop. RESPIRATORY SYSTEM: Normal AP diameter. No accessory muscle use. No wheezing, mild crackles b/l lower lobes, decreased bibasal air entry. ABDOMEN: Soft, bowel sounds present, nontender, no distention. CENTRAL NERVOUS SYSTEM: No facial droop. Speech is clear. Obeys simple commands. Moves extremities. EXTREMITIES: No edema, no erythema seen. Results & Data Results & Data Vital Signs (Past 12 Hours) Vital Signs Temp Pulse Pulse Resp BP BP Pulse Ox 06/16/23 14:20 77 20 150/76 H 94 06/16/23 13:20 36.7 C 81 22 146/95 H 94 06/16/23 12:20 36.7 C 81 24 132/67 92 06/16/23 11:20 36.7 C 85 22 169/87 H 92 06/16/23 10:20 36.7 C 84 22 144/90 H 93 06/16/23 09:20 36.7 C 93 H 18 150/78 H 92 06/16/23 08:20 36.8 C 88 18 129/72 95 06/16/23 07:20 36.7 C 77 18 149/84 H 92 06/16/23 06:30 90 91 06/16/23 06:13 83 24 125/81 90 06/16/23 06:00 82 17 130/75 93 06/16/23 05:30 76 19 121/68 92 06/16/23 05:21 74 21 135/69 94 06/16/23 05:20 75 20 135/69 95 06/16/23 05:00 76 20 137/76 93 06/16/23 04:30 87 18 125/79 90 06/16/23 04:15 83 20 138/86 94 06/16/23 04:13 82 26 H 138/86 89 L 06/16/23 04:00 80 24 93 06/16/23 03:30 87 21 90 06/16/23 03:16 36.6 C 98 H 22 159/95 H 92 06/16/23 03:13 94 H 37 H 159/95 H 92 O2 Del Method 06/16/23 14:20 Room Air 06/16/23 13:20 Room Air 06/16/23 12:20 Room Air 06/16/23 11:20 Room Air 06/16/23 10:20 Room Air 06/16/23 09:20 Room Air 06/16/23 08:20 Room Air 06/16/23 07:20 Room Air 06/16/23 06:30 06/16/23 06:13 Room Air 06/16/23 06:00 06/16/23 05:30 06/16/23 05:21 06/16/23 05:20 Room Air 06/16/23 05:00 06/16/23 04:30 06/16/23 04:15 Room Air 06/16/23 04:13 06/16/23 04:00 06/16/23 03:30 06/16/23 03:16 Room Air 06/16/23 03:13 (2) HTN (hypertension) Hypertension type: essential hypertension Qualified Code(s): I10 - Essential (primary) hypertension
--- NOTE | 2023-06-16 17:00 | CT Scan Report ---
CT SCAN OF THE BRAIN WITHOUT IV CONTRAST CLINICAL HISTORY: Stroke status post TPA. COMPARISON STUDY: CT an MRI of the brain dated 06/07/2023. TECHNIQUE: Unenhanced axial CT scan of the brain is performed from the vertex to the skull base. A do se lowering technique was utilized adhering to the principles of ALARA. CT DOSE: 1697.5 mGy.cm FINDINGS: Brain parenchyma: There is age-related involutional change noting mild subcortical and periventricula r microangiopathic disease. There are subtle foci showing subtle loss of painter matter differentiation suggested in the left frontotemporal cortex, likely representing subacute ischemia. There is no hemor rhage or mass effect. No extra-axial fluid collection is seen. Ventricles, sulci, cisterns: Prominent secondary to involutional change. Intracranial vasculature: There is atherosclerotic calcification of the cavernous carotid and vertebr al arteries. Calvarium: Unremarkable. Sinuses and mastoids: There is mild mucosal thickening in the left maxillary antrum. There is subtota l opacification of the right frontal sinus. The mastoid air cells are well pneumatized. Orbits: The bony orbits are grossly intact. There are bilateral ocular lens implants. IMPRESSION: 1. There are subtle foci showing loss of painter-white matter differentiation suggested in the left fron totemporal cortex. This likely represents subacute/evolving infarct. 2. There is no hemorrhage or mass effect. ACT 112: Negative or not required by law. Electronically signed by: Navin Yip M.D. 06/16/2023 4:59 PM
--- NOTE | 2023-06-16 17:08 | CT Scan Report ---
CT SCAN OF THE CHEST WITHOUT IV CONTRAST CLINICAL HISTORY: Pleural effusion. Cancer history. COMPARISON STUDY: Chest CT dated 01/02/2021. Chest x-ray dated 06/07/2023. TECHNIQUE: CT scan of the thorax was performed from the thoracic inlet to the upper abdomen. Images are reviewed in the axial, sagittal, and coronal planes. IV contrast was not administered for this ex amination as per the referring clinician. A dose lowering technique was utilized adhering to the guido Valentine. The examination is degraded by motion artifact. FINDINGS: Thyroid: Imaged portions of the thyroid gland are normal in size and attenuation. Thoracic aorta: There is atherosclerotic calcification of the thoracic aorta, which is normal in jason stanley and demonstrates standard 3-vessel arch anatomy. Heart: The heart is markedly enlarged and without pericardial effusion. The coronary arteries are den sely calcified. Lungs and pleural spaces: There is a small pleural effusion with dependent consolidation. Trace pleur al effusion is seen on the left with dependent atelectasis. A 7 mm nodular density in the left lower lobe best seen on image #106. This was not clearly seen in 2020. Pleural-based nodularity along the l eft major fissure is unchanged from previous. Mediastinum: There are mildly enlarged mediastinal nodes. The largest measures 11 mm short axis. Luisa: Not well assessed without IV contrast. Axillae: There is no axillary lymphadenopathy. Upper abdomen: There is a small hiatal hernia. Partially visualized upper abdominal viscera is otherw ise grossly unremarkable. Skeletal structures: The skeletal structures are osteopenic. Degenerative change is noted in the spin e. No lytic or blastic bony lesions are seen. There are chronic/healed left-sided rib fractures. Soft tissues: A 2.5 cm sebaceous cyst is seen in the left lower back. IMPRESSION: 1. Motion degraded examination. 2. Marked cardiomegaly. 3. Small right pleural effusion with dependent consolidation. This could represent atelectasis and/or pneumonia. Clinical correlation will be required and radiographic follow-up to resolution is recomme nded. 4. Trace left pleural effusion. 5. Mildly enlarged mediastinal lymph nodes are nonspecific and may be reactive. 6. A 7 mm left lower lobe nodular opacity was not clearly seen in 2020 and may be inflammatory. A 3-4 month follow-up chest CT is recommended for reassessment. 7. Additional findings as above. ACT 112: Negative or not required by law. Electronically signed by: Navin Yip M.D. 06/16/2023 5:06 PM
[2023-06-16] MEDS ORDERED: CLOPIDOGREL BISULFATE 75 MG TAB PO ONE (17:53)
[2023-06-16] MEDS ORDERED: LABETALOL HCL IV 5 MG/ML 20ML IV PRN (18:06)
[2023-06-16] MEDS: ASPIRIN 81 MG ECTAB PO SCH (18:50)
[2023-06-16] MEDS: allopurinoL 300 MG TAB PO SCH (20:04)
[2023-06-16] MEDS: SIMVASTATIN 40 MG TAB PO SCH (20:04)
[2023-06-17 04:50] LABS: Hemoglobin 14.7 g/dl (14.0-18.0); Mean Corpuscular Hemoglobin 30.9 pg (25.0-34.0); Mean Corpuscular Hgb Conc 33.4 g/dL (32.0-36.0); Mean Corpuscular Volume 92.6 fL (80.0-100.0); Mean Platelet Volume 9.5 fL (9.4-12.4); Platelet Count 156 K/uL (130-400); RDW Coefficient of Variation 14.6 % (11.5-14.5); RDW Standard Deviation 49.1 fL (36.4-46.3); Red Blood Count 4.75 M/uL (4.70-6.10); White Blood Count 8.72 K/ul (4.8-10.8)
[2023-06-17 04:59] LABS: Calcium 9.3 mg/dl (8.6-10.3); Creatinine Clr Calc Pharmacy 102.4 ml/min; Est GFR (African American) 100.7 ml/min; Est GFR (Non-African American) 86.9 ml/min; Magnesium 1.9 mg/dl (1.7-2.4); Phosphorus 3.3 mg/dl (2.5-4.9); Potassium 4.1 mmol/L (3.5-5.1)
[2023-06-17] MEDS ORDERED: FUROSEMIDE 40 MG/4 ML VIAL IV ONE (07:46)
--- NOTE | 2023-06-17 08:51 | Cardiology Consultation ---
Date of Consultation June 17, 2023 Assessment & Plan (1) Acute ischemic left MCA stroke: (2) Stenosis of left internal carotid artery: (3) Acute on chronic heart failure with reduced ejection fraction and diastolic dysfunction: (4) Frequent PVCs: Plan Recommend IV diuresis with furosemide 40 mg twice daily. Titrate Toprol-XL to 50 mg daily. Add spironolactone 25 mg daily. Supplement electrolytes as indicated. Follow daily weight, GFR, electrolytes, and fluid balance. Transition losartan to Entresto as outpatient. Continue dual antiplatelet therapy. Outpatient vascular surgery evaluation at [facility] regarding symptomatic carotid stenosis. I spent a total of 50 minutes on the date of service in preparation, delivery, and documentation of the care provided to this patient, excluding any time spent in the performance of separately billed services. History of Present Illness Reason for Consultation: Chronic heart failure. Requesting Physician: Dr. Bal Attending Physician: José Miguel Bal MD History of Present Illness 67-year-old patient presented to the emergency department 06/15/2023 for strokelike symptoms. 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 CT of the head demonstrating a small calcified thrombus within the peripheral branch of the left middle cerebral artery along the sylvian fissure. 75% focal stenosis involving the origin of the left internal carotid artery. Stroke alert was called and patient treated with TNKase in ER. Patient has recovered neurologically. Reports cough and upper respiratory sympt oms over the past 4 to 6 weeks intermittently. Treated in the outpatient setting with antibiotics, inhalers, and steroids. Ultimately symptoms improved with diuretic therapy. He was treated with IV furosemide yesterday due to respiratory insufficiency. Symptoms and breath sounds have improved per discussion with nursing. Fluid balance -1.8 L. Telemetry reveals sinus rhythm in the 70s-80s with frequent PVCs. Cardiac history: 1. Atherosclerotic coronary disease status post nonST-segment elevation myocardial infarction in 1996 with subsequent coronary intervention with angioplasty of a circumflex marginal. 2. Ischemic cardiomyopathy with improved LV function after intervention 03/07/20 EF 40- 45% 3. Dyslipidemia with elevated triglycerides, prior poor tolerance of atorvastatin and rosuvastatin 4. Hypertension. 5. Chronic tobacco use, now in cessation. 6. Crescendo angina status post acute coronary intervention thrombotic proximal LAD stenosis February 16, 2020 7. Staged right coronary intervention March 07, 2020 drug-eluting stent to proximal and mid right coronary artery 8. Single run nonsustained ventricular tachycardia 5 beats during hospitalization January 2020 with transient use of life vest now discontinued 9. COVID pneumonia Allergies Allergy/AdvReac Type Severity Reaction Status Date / Time No Known Allergies Allergy Unknown ` Verified 06/15/23 17:28 Home Medications Medication Instructions Recorded Confirmed Type aspirin 81 mg tablet,delayed 81 mg PO QAM #30 tabs 02/17/20 06/15/23 Rx release ezetimibe 10 mg tablet (Zetia) 10 mg PO QAM #30 tabs 02/17/20 06/15/23 Rx nitroglycerin 0.4 mg sublingual 0.4 mg sublingual PRN PRN chest 02/17/20 06/15/23 Rx tablet (Nitrostat) pain #30 tabs allopurinol 300 mg tablet 300 mg PO HS 01/02/21 06/15/23 History losartan 100 mg tablet 100 mg PO DAILY 01/02/21 06/15/23 History metoprolol succinate 50 mg 25 mg PO DAILY 01/02/21 06/15/23 History tablet,extended release 24 hr simvastatin 40 mg tablet 40 mg PO HS 01/02/21 06/15/23 History vitamin B complex 1 tab PO DAILY 01/02/21 06/15/23 History albuterol sulfate 90 mcg/actuation 2 puff inhalation DIRECTED PRN 06/15/23 06/15/23 History aerosol inhaler Shortness Of Breath Or Wheezing econazole 1 % topical cream 1 applic topical 2XWK 06/15/23 06/15/23 History furosemide 40 mg tablet (Lasix) 40 mg PO DAILY 06/15/23 06/15/23 History vitamins A,C,M-mcke-qcjuxw 4,296 1 cap PO QAM 06/15/23 06/15/23 History mcg-226 mg-90 mg capsule (PreserVision AREDS) Patient History Medical History Mouth cancer Neuropathic foot ulcer Nonsustained ventricular tachycardia History of tobacco abuse Hypertension Dyslipidemia NSTEMI (non-ST elevated myocardial infarction) Total of 4. 1997 Circumflex, 02/16/2020 Proximal LAD, 03/07/2020 Proximal and Mid RCA CAD (coronary artery disease) NSVT (nonsustained ventricular tachycardia) Ischemic cardiomyopathy Surgical History History of colonoscopy with polypectomy multiple - prior villous adenoma in 2007 History of oral surgery excision of right mouth floor lesion, right submandibular gland, suprahyoid lymphadenectomy - 2016 History of cataract extraction History of appendectomy Stented coronary artery H/O heart artery stent Family History Father Heart disease Prostate cancer Brother Heart disease Social History Smoking Status: Former smoker Second Hand Exposure: No; Do You Dip or Chew Tobacco: No; Hx Alcohol Use: Yes Alcohol type: beer Hx Substance Use: No Preferred Language: Malay Communication Ability: Effective Nutrition Services Manager Required: No Beliefs That Will Affect Care: None marital status: Current Living Situation: Spouse Other Information That Helps Us Care for You: No Feels Safe at Home: Yes Safety Concerns: Feels Safe At This Time Assistive Devices: None Review of Systems Review of Systems: All systems reviewed & are unremarkable except as noted in Subjective Physical Exam Constitutional: well nourished; no acute distress Respiratory: no respiratory distress and no labored breathing Auscultation: + diminished lung sounds (Right base) and + rales (Right base); no wheezes Cardiovascular: Rate/Rhythm: regular rate and regular rhythm Heart Sounds: normal S1 and normal S2; no murmur Vessels: radial pulses present; no carotid bruit Extremities: no edema Gastrointestinal (Abdomen): Inspection/Auscultation: normal bowel sounds; abdomen not distended Percussion/Palpation: abdomen soft; abdomen nontender, no guarding and abdomen not rigid Neurologic: CN's II-XI intact bilaterally and moves all extremities Results & Data Vital Signs (Past 12 Hours) Vital Signs Temp Pulse Pulse Resp BP Pulse Ox O2 Del Method 06/17/23 03:11 37.0 C 85 18 144/76 H 91 Room Air 06/16/23 23:39 81 06/16/23 22:33 37.3 C 78 20 124/73 93 Room Air Laboratory Results CBC 06/17/23 Range/Units 04:22 WBC 8.72 (4.8-10.8) K/ul RBC 4.75 (4.70-6.10) M/uL Hgb 14.7 (14.0-18.0) g/dl Hct 44.0 (42.0-52.0) % Plt Count 156 (130-400) K/uL Comprehensive Metabolic Panel 06/17/23 Range/Units 04:22 Sodium 136 (136-145) mmol/L Potassium 4.1 (3.5-5.1) mmol/L Chloride 100 (98-107) mmol/L Carbon Dioxide 30 (21-32) mmol/L BUN 10 (6-23) mg/dl Creatinine 0.91 (0.6-1.4) mg/dl Glucose 107 H (70-99(Fasting)) mg/dl Calcium 9.3 (8.6-10.3) mg/dl Intake and Output 06/16/23 06/17/23 06/17/23 22:59 06:59 14:59 Intake Total 300 / 1600 500 / 1600 Output Total 1150 / 3050 450 / 3050 Balance -850 / -1450 50 / -1450 Intake: Oral 300 / 1600 500 / 1600 Output: Urine 1150 / 3050 450 / 3050 Other: Weight 113.4 kg 112.5 kg Weight Measurement Method Built in [facility] Diagnostic Findings 2D echocardiogram report summary: Left ventricle is mildly dilated. Left ventricular ejection fraction 35-40% Large size septal, inferior, posterior, and lateral wall motion abnormality with hypokinesis to akinesis of the segments. Moderate left atrial enlargement. Mild mitral and tricuspid regurgitation.
[2023-06-17] MEDS: EZETIMIBE 10 MG TAB PO SCH (09:18)
[2023-06-17] MEDS: CLOPIDOGREL BISULFATE 75 MG TAB PO SCH (09:18)
[2023-06-17] MEDS: METOPROLOL SUCC 25MG EXT REL TAB PO SCH (09:18)
[2023-06-17] MEDS: LOSARTAN POTASSIUM 50 MG TAB PO SCH (09:18)
[2023-06-17] MEDS: ASPIRIN 81 MG ECTAB PO SCH (09:18)
[2023-06-17] MEDS ORDERED: METOPROLOL SUCC 25MG EXT REL TAB PO ONE (09:36)
[2023-06-17] MEDS ORDERED: MAGNESIUM SULFATE / D5W 1 GM/100 ML BAG IV ONE (12:00)
[2023-06-17] MEDS: SPIRONOLACTONE 25 MG TAB PO SCH (13:02)
--- NOTE | 2023-06-17 15:16 | Hospitalist Progress Note ---
Date of Service June 17, 2023 Assessment & Plan (1) Acute stroke due to embolism of left middle cerebral artery: (2) HTN (hypertension): (3) CAD (coronary artery disease): Plan 67 year old gentleman with past medical history remarkable for obstructive coronary artery disease s/p LALIT RCA 2019, HTN, prior tobacco use, HLD, prior COVID 2019 who presented to [facility] ED 06/15 due to right sided facial droop, dysarthria, and expressive dysphagia and administered TNK on 06/15 at 1618 hrs. Patient admitted to ICU for post-24 hours TNK monitoring. He is being managed for the following: #Acute stroke #Right facial droop #Dysarthria -CT with calcified thrombus of left MCA territory. approximately 75% focal stenosis at the origin of the left internal carotid artery. -MRI brain: s/o acute or subacute infarcts x left frontal lobe -TNK 06/15/2023 at 1618. LDL 36. A1c 6.4 (A1c of 5.4 on 12/24/2022 per OP chart review). -s/p post tnk 24 hr ICU monitoring. [address] Head w/ no bleed. -Speech evaled, no difficulty swallowing. -Neuro evaled - appreciate recs. Will need f/u as OP. -Vascular sx consulted, appreciate recs. OP [facility] vascular eval for symptomatic LICA stenosis. -DAPT started, ECHO reviewed (below). -PT/OT -Will need OP cardiac monitoring. -Will benefit from OP sleep study. #. Prediabetes: A1c of 6.4, lifestyle modification, counseling done, follow-up A1c in 3 months and closely follow-up with PCP for long-term management. #SANCHEZ #Right Pleural effusion #Acute on Chronic HFrEF -BNP of 1011; pt w/ rt pl eff on cxr. CT chest w/ small R pl eff. -Recently home lasix dose increased to 40 mg daily as OP from 20 mg twice a week per pt. 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 -ECHO w/ EF of 35-40%, mild MR, no pHTN, no interatrial shunt. - Iv lasix - Cardio consulted, appreciate recs. Transition losartan to entresto as OP. -I/Os, monitor and replete electrolytes. Left lower lobe nodule on CT scan of chest: 7 mm left lower lobe nodular opacity noted. 3 to 4-month follow-up CT chest is recommended. #Obstructive CAD s/p LALIT to RCA 2019 #HTN #HLD -Hoome regimen: Simvastatin 40mg, Metoprolol XL 25mg daily, Losartan 100mg daily, ASA 81 daily, Zetia 10mg daily, Furosemide 40 mg daily -Unable to complete echo at OP visit 2/2 stroke -Repeat ECHO reviewed. -Continue with home meds as and when able. #Gout: c/w home meds. DVT: SCDs NPO PCU telemetry, PT/OT, CM to assist with DC planning. Admission and Anticipated Discharge Date Admission Date: June 15, 2023 Subjective Patient was seen and examined at bedside. Patient was Sitting up in chair, on room air, NAD, reports resolution of his neurological symptoms/weakness. Patient reports eating okay, Denies any new weakness or numbness or tingling. Denies any headache or dizziness. Patient continues to report shortness of breath with activity which has been ongoing for a while, recently his outpatient Lasix dose was increased from 20 mg twice a week to 40 mg daily. Physical Exam Physical Exam: GENERAL: Alert and oriented x3. NAD, on RA. HEENT: No pallor, no icterus. Pupils equal, round and reactive to light. Oral mucosa moist. NECK: No JVD, no neck masses. HEART: S1 and S2 heard. Regular rate and rhythm. No murmur, no gallop. RESPIRATORY SYSTEM: Normal AP diameter. No accessory muscle use. No wheezing, mild crackles b/l lower lobes, decreased bibasal air entry. ABDOMEN: Soft, bowel sounds present, nontender, no distention. CENTRAL NERVOUS SYSTEM: No facial droop. Speech is clear. Obeys simple commands. Moves extremities. EXTREMITIES: No edema, no erythema seen. Results & Data Results & Data Vital Signs (Past 12 Hours) Vital Signs Temp Pulse Resp BP Pulse Ox O2 Del Method 06/17/23 12:44 77 24 130/73 94 Room Air 06/17/23 08:00 36.8 C 84 24 148/66 H 94 Room Air 06/17/23 03:11 37.0 C 85 18 144/76 H 91 Room Air (2) HTN (hypertension) Hypertension type: essential hypertension Qualified Code(s): I10 - Essential (primary) hypertension
[2023-06-17] MEDS: FUROSEMIDE 40 MG/4 ML VIAL IV SCH (16:59)
[2023-06-17] MEDS: allopurinoL 300 MG TAB PO SCH (21:00)
[2023-06-17] MEDS: SIMVASTATIN 40 MG TAB PO SCH (21:00)
[2023-06-18 05:11] LABS: BUN Creatinine Ratio 12.1 (10-20); Est GFR (African American) 100.7 ml/min; Est GFR (Non-African American) 86.9 ml/min; Magnesium 1.9 mg/dl (1.7-2.4); Phosphorus 3.9 mg/dl (2.5-4.9); Potassium 3.8 mmol/L (3.5-5.1)
[2023-06-18] MEDS ORDERED: POTASSIUM CHLORIDE CRTAB 20 MEQ TABCR PO STA (07:52)
[2023-06-18] MEDS: ASPIRIN 81 MG ECTAB PO SCH (08:24)
[2023-06-18] MEDS: CLOPIDOGREL BISULFATE 75 MG TAB PO SCH (08:24)
[2023-06-18] MEDS: METOPROLOL SUCC 50MG EXT REL TAB PO SCH (08:24)
[2023-06-18] MEDS: LOSARTAN POTASSIUM 50 MG TAB PO SCH (08:25)
[2023-06-18] MEDS: EZETIMIBE 10 MG TAB PO SCH (08:25)
[2023-06-18] MEDS: METOPROLOL SUCC 25MG EXT REL TAB PO SCH ×2 (08:25→10:16)
[2023-06-18] MEDS: SPIRONOLACTONE 25 MG TAB PO SCH (08:25)
[2023-06-18] MEDS: FUROSEMIDE 40 MG/4 ML VIAL IV SCH ×2 (08:26→17:06)
--- NOTE | 2023-06-18 10:39 | Cardiology Progress Note ---
Date of Service June 18, 2023 Assessment & Plan (1) Acute ischemic left MCA stroke: (2) Stenosis of left internal carotid artery: (3) Acute on chronic heart failure with reduced ejection fraction and diastolic dysfunction: (4) Frequent PVCs: Plan Continue IV diuresis with furosemide 40 mg twice daily. Transition to oral furosemide in the next 24-48 hours. Toprol-XL titrated to 50 mg daily 06/17. Add 25 mg nightly for total dose of 75 mg daily. Spironolactone 25 mg daily added 06/17. Follow daily weight, GFR, electrolytes, and fluid balance. 40 mg oral potassium chloride ordered today. Transition losartan to Entresto as outpatient. Consider outpatient electrophysiology consultation for evaluation of frequent premature ventricular complexes. Continue dual antiplatelet therapy. Outpatient vascular surgery evaluation at [facility] regarding symptomatic carotid stenosis. Admission and Anticipated Discharge Date Admission Date: June 15, 2023 Subjective Patient seen examined the bedside. Respiratory status improved with diuresis. Telemetry reveals sinus rhythm with frequent PVCs. Denies chest pain, orthopnea , PND. Continues to cough, however, less frequent. No palpitations, lightheadedness, or dizziness. Review of Systems Review of Systems: All systems reviewed & are unremarkable except as noted in Subjective Physical Exam Constitutional: well nourished; no acute distress Respiratory: no respiratory distress and no labored breathing Auscultation: + diminished lung sounds (Right base) and + rales (Right base); no wheezes Cardiovascular: Rate/Rhythm: regular rate and regular rhythm Heart Sounds: normal S1 and normal S2; no murmur Vessels: radial pulses present; no carotid bruit Extremities: no edema Gastrointestinal (Abdomen): Inspection/Auscultation: normal bowel sounds; abdomen not distended Percussion/Palpation: abdomen soft; abdomen nontender, no guarding and abdomen not rigid Neurologic: CN's II-XI intact bilaterally and moves all extremities Results & Data Vital Signs (Past 12 Hours) Vital Signs Temp Pulse Pulse Resp BP BP Pulse Ox 06/18/23 08:49 37.2 C 91 H 17 134/63 94 06/18/23 04:30 36.9 C 87 24 126/64 94 06/18/23 00:00 81 06/17/23 23:27 37.0 C 06/17/23 23:00 80 21 06/17/23 22:51 75 22 06/17/23 22:51 123/68 O2 Del Method 06/18/23 08:49 Room Air 06/18/23 04:30 Room Air 06/18/23 00:00 06/17/23 23:27 06/17/23 23:00 06/17/23 22:51 06/17/23 22:51 Laboratory Results Comprehensive Metabolic Panel 06/18/23 Range/Units 04:27 Sodium 136 (136-145) mmol/L Potassium 3.8 (3.5-5.1) mmol/L Chloride 100 (98-107) mmol/L Carbon Dioxide 30 (21-32) mmol/L BUN 11 (6-23) mg/dl Creatinine 0.91 (0.6-1.4) mg/dl Glucose 87 (70-99(Fasting)) mg/dl Calcium 9.0 (8.6-10.3) mg/dl Intake and Output 06/17/23 06/18/23 06/18/23 22:59 06:59 14:59 Intake Total 1350 / 1600 250 / 1600 Output Total 1500 / 2250 350 / 2250 Balance -150 / -650 -100 / -650 Intake: IV 100 / 100 Magnesium Sulfate / D5w 1 gm In 100 / 100 100 ml @ 50 mls/hr IV ONE ONE Rx#:[id number] Oral 1250 / 1500 250 / 1500 Output: Urine 1500 / 2250 350 / 2250 Other: Weight 109.8 kg Weight Measurement Method Built in [facility]
[2023-06-18] MEDS ORDERED: fentaNYL citrate 2,500 MCG/250 ML BAG IV ONE (14:03)
--- NOTE | 2023-06-18 16:06 | Hospitalist Progress Note ---
Date of Service June 18, 2023 Assessment & Plan (1) Acute stroke due to embolism of left middle cerebral artery: (2) HTN (hypertension): (3) CAD (coronary artery disease): Plan 67 year old gentleman with past medical history remarkable for obstructive coronary artery disease s/p LALIT RCA 2019, HTN, prior tobacco use, HLD, prior COVID 2019 who presented to [facility] ED 06/15 due to right sided facial droop, dysarthria, and expressive dysphagia and administered TNK on 06/15 at 1618 hrs. Patient admitted to ICU for post-24 hours TNK monitoring. He is being managed for the following: #Acute stroke #Right facial droop #Dysarthria -CT with calcified thrombus of left MCA territory. approximately 75% focal stenosis at the origin of the left internal carotid artery. -MRI brain: s/o acute or subacute infarcts x left frontal lobe -TNK 06/15/2023 at 1618. LDL 36. A1c 6.4 (A1c of 5.4 on 12/24/2022 per OP chart review). -s/p post tnk 24 hr ICU monitoring. [address] Head w/ no bleed. -Speech evaled, no difficulty swallowing. -Neuro evaled - appreciate recs. Will need f/u as OP. -Vascular sx consulted, appreciate recs. OP [facility] vascular eval for symptomatic LICA stenosis. -DAPT started, ECHO reviewed (below). -PT/OT -Will need OP cardiac monitoring. -Will benefit from OP sleep study. #. Prediabetes: A1c of 6.4, lifestyle modification, counseling done, follow-up A1c in 3 months and closely follow-up with PCP for long-term management. #SANCHEZ #Right Pleural effusion #Acute on Chronic HFrEF -BNP of 1011; pt w/ rt pl eff on cxr. CT chest w/ small R pl eff. -Recently home lasix dose increased to 40 mg daily as OP from 20 mg twice a week per pt. 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 -ECHO w/ EF of 35-40%, mild MR, no pHTN, no interatrial shunt. - Iv lasix - Cardio consulted, appreciate recs. Transition losartan to entresto as OP. -I/Os, monitor and replete electrolytes. Left lower lobe nodule on CT scan of chest: 7 mm left lower lobe nodular opacity noted. 3 to 4-month follow-up CT chest is recommended. Pt is made aware. #Obstructive CAD s/p LALIT to RCA 2019 #HTN #HLD -Hoome regimen: Simvastatin 40mg, Metoprolol XL 25mg daily, Losartan 100mg daily, ASA 81 daily, Zetia 10mg daily, Furosemide 40 mg daily -Unable to complete echo at OP visit 2/2 stroke -Repeat ECHO reviewed. -Continue with home meds as and when able. #Gout: c/w home meds. DVT: SCDs NPO PCU telemetry, PT/OT, CM to assist with DC planning. Admission and Anticipated Discharge Date Admission Date: June 15, 2023 Subjective Patient was seen and examined at bedside. Patient was sitting up in chair, on room air, NAD, reports no new weakness/or neurological s/s. Patient reports eating okay, Denies any new weakness or numbness or tingling. Denies any headache or dizziness. Patient some improvement in his shortness of breath with activity. offers no other complaints. Physical Exam Physical Exam: GENERAL: Alert and oriented x3. NAD, on RA. HEENT: No pallor, no icterus. Pupils equal, round and reactive to light. Oral mucosa moist. NECK: No JVD, no neck masses. HEART: S1 and S2 heard. Regular rate and rhythm. No murmur, no gallop. RESPIRATORY SYSTEM: Normal AP diameter. No accessory muscle use. No wheezing, bb crackles. decreased br sound rt base. ABDOMEN: Soft, bowel sounds present, nontender, no distention. CENTRAL NERVOUS SYSTEM: No facial droop. Speech is clear. Obeys simple commands. Moves extremities. EXTREMITIES: No edema, no erythema seen. Results & Data Results & Data Vital Signs (Past 12 Hours) Vital Signs Temp Pulse Resp BP Pulse Ox O2 Del Method 06/18/23 11:29 Room Air 06/18/23 08:49 37.2 C 91 H 17 134/63 94 Room Air 06/18/23 04:30 36.9 C 87 24 126/64 94 Room Air (2) HTN (hypertension) Hypertension type: essential hypertension Qualified Code(s): I10 - Essential (primary) hypertension
[2023-06-18] MEDS ORDERED: METOPROLOL SUCC 25MG EXT REL TAB PO SCH (18:00)
[2023-06-18] MEDS: SIMVASTATIN 40 MG TAB PO SCH (20:56)
[2023-06-18] MEDS: allopurinoL 300 MG TAB PO SCH (20:56)
[2023-06-19 05:06] LABS: BUN Creatinine Ratio 14.5 (10-20); Calcium 9.1 mg/dl (8.6-10.3); Creatinine Clr Calc Pharmacy 110.5 ml/min; Est GFR (African American) 105.5 ml/min; Magnesium 1.9 mg/dl (1.7-2.4)
--- NOTE | 2023-06-19 06:43 | Cardiology Progress Note ---
Date of Service June 19, 2023 Assessment & Plan (1) Acute ischemic left MCA stroke: (2) Stenosis of left internal carotid artery: (3) Acute on chronic heart failure with reduced ejection fraction and diastolic dysfunction: (4) Frequent PVCs: Plan Continue IV diuresis with furosemide 40 mg twice daily. Transition to oral furosemide in the next 24-48 hours. Toprol-XL titrated to 50 mg daily 06/17. Add 25 mg nightly for total dose of 75 mg daily. Spironolactone 25 mg daily added 06/17. Follow daily weight, GFR, electrolytes, and fluid balance. 40 mg oral potassium chloride ordered today. Transition losartan to Entresto as outpatient. Consider outpatient electrophysiology consultation for evaluation of frequent premature ventricular complexes. Continue dual antiplatelet therapy. Outpatient vascular surgery evaluation at [facility] regarding symptomatic carotid stenosis. Admission and Anticipated Discharge Date Admission Date: June 15, 2023 Physical Exam Constitutional: well nourished; no acute distress Respiratory: no respiratory distress and no labored breathing Auscultation: + diminished lung sounds (Right base) and + rales (Right base); no wheezes Cardiovascular: Rate/Rhythm: regular rate and regular rhythm Heart Sounds: normal S1 and normal S2; no murmur Vessels: radial pulses present; no carotid bruit Extremities: no edema Gastrointestinal (Abdomen): Inspection/Auscultation: normal bowel sounds; abdomen not distended Percussion/Palpation: abdomen soft; abdomen nontender, no guarding and abdomen not rigid Neurologic: CN's II-XI intact bilaterally and moves all extremities Results & Data Vital Signs (Past 12 Hours) Vital Signs Temp Pulse Resp BP Pulse Ox O2 Del Method 06/18/23 23:26 37.2 C 72 20 133/80 97 Room Air 06/18/23 20:39 Room Air 06/18/23 19:33 36.5 C 70 22 125/64 96 Room Air 06/18/23 19:00 36.4 C L 72 20 125/64 98 Room Air
[2023-06-19] MEDS: ASPIRIN 81 MG ECTAB PO SCH (08:21)
[2023-06-19] MEDS: LOSARTAN POTASSIUM 50 MG TAB PO SCH (08:22)
[2023-06-19] MEDS: FUROSEMIDE 40 MG/4 ML VIAL IV SCH (08:22)
[2023-06-19] MEDS: CLOPIDOGREL BISULFATE 75 MG TAB PO SCH (08:22)
[2023-06-19] MEDS: METOPROLOL SUCC 50MG EXT REL TAB PO SCH (08:22)
[2023-06-19] MEDS: EZETIMIBE 10 MG TAB PO SCH (08:22)
[2023-06-19] MEDS: SPIRONOLACTONE 25 MG TAB PO SCH (08:22)
--- NOTE | 2023-06-19 11:44 | Cardiology Progress Note ---
Date of Service June 19, 2023 Assessment & Plan (1) Acute ischemic left MCA stroke: (2) Stenosis of left internal carotid artery with cerebral infarction: (3) Acute on chronic heart failure with reduced ejection fraction and diastolic dysfunction: (4) Frequent PVCs: Plan Patient has clinically improved. Stroke symptoms resolving status post thrombolytic Appears compensated from acute on chronic congestive heart failure Plan follow-up with vascular surgery post hospital discharge regarding carotid stenosis Recommendations: Discharged on furosemide 40 mg p.o. daily, spironolactone 25 mg/day and increased dose of metoprolol succinate 50 mg a.m. 25 mg p.o. CHF discharge instructions Follow-up cardiology 2 to 4 weeks, vascular surgery as planned Admission and Anticipated Discharge Date Admission Date: June 15, 2023 Subjective Patient seen and examined, chart, medications, telemetry reviewed. Patient clinically improving, speech, arm and leg strength. No change in neurologic status. Telemetry with sinus rhythm with frequent ventricular ectopy. Tolerating increased dose of metoprolol succinate Has responded to IV diuretics with 10 kg weight reduction No dyspnea or chest pain Review of Systems Review of Systems: All systems reviewed & are unremarkable except as noted in Subjective Physical Exam Constitutional: WD/WN, vitals as above no acute distress Eyes: PERRL, conjunctivae normal, anicteric sclerae Neck: trachea midline, no thyromegaly Respiratory: normal respiratory effort, lungs clear to auscultation Cardiovascular: Rate/Rhythm: regular rate and regular rhythm Vessels: no JVD Extremities: no edema Psychiatric: A+Ox3, euthymic affect Results & Data Vital Signs (Past 12 Hours) Vital Signs Temp Pulse Pulse Resp BP Pulse Ox O2 Del Method 06/19/23 08:32 36.4 C L 85 22 156/61 H 94 Room Air 06/19/23 08:00 67 Laboratory Results Laboratory Results - last 24 hr 06/19/23 03:46 Sodium 135 L Potassium 4.0 Chloride 99 Carbon Dioxide 29 Anion Gap 7 BUN 12 Creatinine 0.83 Est Cr Clr Drug Dosing 110.5 Est GFR ( Amer) 105.5 Est GFR (Non-Af Amer) 91.0 BUN/Creatinine Ratio 14.5 Glucose 89 Calcium 9.1 Magnesium 1.9
--- NOTE | 2023-06-19 13:32 | Discharge Summary ---
Date of Service June 19, 2023 Admission HPI Per Admitting Provider Mr. Brandan Morgan is a 67 year old gentleman with past medical history remarkable for obstructive coronary artery disease s/p LALIT RCA 2019, HTN, prior tobacco use, HLD, prior COVID 2019 who presented to [facility] ED due to right sided facial droop, dysarthria, and expressive dysphagia and administered TNK on 06/15 at 1618. Patient to be admitted to ICU for post-24 hours TNK monitoring. History of presentation gathered from patient and OSH EMR Upon exam, patient laying supine in ED stretcher. Patient greeted appropriately. Initially difficult to understand, but responded to questions appropriately. 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 He underwent a CXR due to symptoms SOB/Cough. This revealed cardiomegaly and pleural effusion prompting ECHO. Once patient went to ECHO, he states is when "this all happened" as he gestured with his hands towards his face. He states that since the TNK/since being in the ED, he has noted some improvement in symptoms, but feels it "comes and goes" in intensity. Nurse at bedside notes improvement mostly with aphasia, stating she is able to understand him much more and he is doing better with the neuro checks. Patient denies chest pain, orthopnea, any sensation/motor loss of extremities, issues with urination/bowels. Patient took all of his morning meds. Last tobacco use greater than 8 years ago. Drinks 4-5 beers daily, last drink 06/14, denies history of withdrawal like symptoms often goes "1-2 days" without Denies other active substance use In the ED, vitals were notable for BP in 140-160s, HR 80s-100s and O2 sat high 90s on room air CXR personally reviewed and revealed cardiomegaly with increased interstitial markings CT head with small calcified thrombus in left MCA, w/out hemorrhage; 75% stenosis of LICA, high grade stenosis of LECA EKG reviwed with sinus tachy, PVCs, similar to previous EKGs ED interventions: TNK 1618 Consultants: Teleneuro; admit consults Neuro, ICU Patient to be admitted to ICU for further evaluation and management of acute stroke Admission Exam Per Admitting Provider GENERAL APPEARANCE: AxOx4, generally well-appearing, no acute distress HEENT: NC, AT. MMM. EOMI, clear conjunctiva, oropharynx clear. NECK: Supple without lymphadenopathy. No stiffness or restricted ROM. HEART: Normal rate and regular rhythm, normal S1/S1, no m/r/g LUNGS: Decreased breath sounds in RLL ABDOMEN: Soft, nontender, nondistended with good bowel sounds heard. EXTREMITIES: Without cyanosis, clubbing or edema. NEUROLOGICAL: Right naso labial flattening, asymmetric smile with r deficit, tongue able to move left/right, strength in tact in all extremities 5/5, sensation intact, dysarthria noted with episode of aphasia lasting about 10 seconds while examining Principal Diagnosis Acute stroke, left frontal lobe Calcified thrombus of left MCA territory Left internal carotid artery stenosis 75% Acute on chronic heart failure with reduced ejection fraction Prediabetes Left lower lobe nodule on CT scan of chest Discharge Exam GENERAL: Alert and oriented x3. NAD, on RA. HEENT: No pallor, no icterus. Pupils equal, round and reactive to light. Oral mucosa moist. NECK: No JVD, no neck masses. HEART: S1 and S2 heard. Regular rate and rhythm. No murmur, no gallop. RESPIRATORY SYSTEM: Normal AP diameter. No accessory muscle use. No wheezing, rt base crackles minimal ABDOMEN: Soft, bowel sounds present, nontender, no distention. CENTRAL NERVOUS SYSTEM: No facial droop. Speech is clear. Obeys simple commands. Moves extremities. EXTREMITIES: No edema, no erythema seen. Discharge Data Allergies Allergy/AdvReac Type Severity Reaction Status Date / Time No Known Allergies Allergy Unknown ` Verified 06/15/23 17:28 Consultations 06/15/23 16:22 ED Decision to Admit Stat 06/15/23 19:34 Consult Psychiatric Nurse Routine Consult Neurology Routine 06/15/23 20:27 Consult Vascular Surgery Routine 06/17/23 07:46 Consult Cardiology Routine Ordered Studies 06/15/23 15:51 CT angio head w con Stat CT angio neck with con Stat CT head/brain wo con Stat 06/15/23 17:23 MRI Brain [MR brain wo con] Routine 06/16/23 08:40 CT chest without contrast [CT chest diagnostic wo con] Routine 06/16/23 16:45 CT head/brain wo con Routine Hospital Course (1) Acute stroke due to embolism of left middle cerebral artery: (2) HTN (hypertension): (3) CAD (coronary artery disease): Plan 67 year old gentleman with past medical history remarkable for obstructive coronary artery disease s/p LALIT RCA 2019, HTN, prior tobacco use, HLD, prior COVID 2019 who presented to [facility] ED 06/15 due to right sided facial droop, dysarthria, and expressive dysphagia and administered TNK on 06/15 at 1618 hrs. Patient admitted to ICU for post-24 hours TNK monitoring. He was managed for the following: #Acute stroke #Right facial droop #Dysarthria -CT with calcified thrombus of left MCA territory. approximately 75% focal stenosis at the origin of the left internal carotid artery. -MRI brain: s/o acute or subacute infarcts x left frontal lobe -TNK 06/15/2023 at 1618. LDL 36. A1c 6.4 (A1c of 5.4 on 12/24/2022 per OP chart review). -s/p post tnk 24 hr ICU monitoring. [address] Head w/ no bleed. -Speech evaled, no difficulty swallowing. -Neuro evaled - appreciate recs. Will need f/u as OP. -Vascular sx consulted, appreciate recs. OP [facility] vascular eval for symptomatic LICA stenosis. -DAPT started, ECHO reviewed (below). -PT/OT -Will need OP cardiac monitoring. -Will benefit from OP sleep study. #. Prediabetes: A1c of 6.4, lifestyle modification, counseling done, follow-up A1c in 3 months and closely follow-up with PCP for long-term management. #SANCHEZ #Right Pleural effusion #Acute on Chronic HFrEF -BNP of 1011; pt w/ rt pl eff on cxr. CT chest w/ small R pl eff. -Recently home lasix dose increased to 40 mg daily as OP from 20 mg twice a week per pt. -Pt complaining of SANCHEZ since [employer]. -ECHO w/ EF of 35-40%, mild MR, no pHTN, no interatrial shunt. - s/p Iv lasix, reports improvement in shortness of breath significantly. - Cardio consulted, appreciate recs. Transition losartan to entresto as OP. -Cardiac medications optimized, patient to follow-up with cardiology in 2 to 4 weeks time upon discharge. Left lower lobe nodule on CT scan of chest: 7 mm left lower lobe nodular opacity noted. 3 to 4-month follow-up CT chest is recommended. Pt is made aware. #Obstructive CAD s/p LALIT to RCA 2020 #HTN #HLD -Hoome regimen: Simvastatin 40mg, Metoprolol XL 25mg daily, Losartan 100mg daily, ASA 81 daily, Zetia 10mg daily, Furosemide 40 mg daily -Unable to complete echo at OP visit 2/ stroke -Repeat ECHO reviewed. -Continue with home meds as and when able. #Gout: c/w home meds. DVT: SCDs NPO PCU telemetry, PT/OT, CM to assist with DC planning. Patient recommended to go to rehab, patient wants to go home with home health. He is being discharged with following instruction at the point of discharge: Follow-up with your primary care physician within a week time and likely you will need labs CBC/CMP/magnesium/phosphorus. You had acute stroke while in the hospital, you will need vascular surgery follow-up within a week time of discharge. It is important. Coordinate with your PCP office to set up the appointment. Follow-up with neurology in 2 to 4 weeks time upon discharge. You will need outpatient cardiac monitoring, coordinate with your cardiology office or PCP office to set up the test. You also had acute on chronic heart failure with reduced ejection fraction, cardiology evaluated you, your medications has been optimized. Follow-up with cardiology in 2 to 4 weeks time upon discharge. You will benefit from outpatient sleep study, coordinate with your PCP office to set up the test. As discussed at the bedside, your A1c is 6.4 which is prediabetes. You will need lifestyle modification as discussed. Follow-up with the PCP office for long-term follow-up/management. As discussed at the bedside, there is concern of 7 mm left lower lobe nodular opacity in your chest CT while in hospital. You will need repeat CT of the chest in 3 to 4-month time to follow-up on this. Coordinate with the PCP office to set up the test. Take your medications as prescribed. Please make sure that you are able to get your medications today by calling your pharmacy before you leave the hospital so that your treatment continuity is not broken. Home Health Attestation I certify that this patient is under my care and that I, or a physicians assistant department manager working with me, had a face to-face encounter that meets the home health [id number] encounter requirements with this patient. The encounter with the patient was in whole, or in part, for the following me dical condition, which is the primary reason for home health care (list medical condition): CVA I certify that, based on my findings, the following services are medically ne cessary home health services: My clinical findings support the need for the above services because: OT Assess ADL Status and Restore Function w ADLs PT Gait and Balance Training, Strengthening and Safety Further, I certify that my clinical findings support that this patient is homebound (i.e. absences from home require considerable and taxing effort and are for medical reasons or cheondoism services or infrequently or of short duration when for other reasons) because: Transportation Assistance/Unable to Leave Home Unassisted Certification for Home Health Services: Based on the above findings, I certify that this patient is confined to the home and needs intermittent halfway care, physical therapy and/or speech therapy or continues to need occupational therapy. The patient is under my care, and I have initiated the establishment of the plan of care. This patient will be followed by a physician who will periodically review the plan of care. Total Time Total Time Spent Total Time Spent (In Minutes): 45 Discharge Plan Discharge Items Patient Disposition: Home - Home Health Services Reason For Visit: STROKE Discharge Diagnosis: Acute stroke, left frontal lobe Calcified thrombus of left MCA territory Left internal carotid artery stenosis 75% Acute on chronic heart failure with reduced ejection fraction Prediabetes Left lower lobe nodule on CT scan of chest Activity: Resume your previous activity Non-emergency contact: Primary Care Provider Call non-emergency contact if: you have any medication questions, your symptoms worsen and your temperature is above 101 Follow-up/Referrals: Dr Jean Garcia [Other] (Date & Time 06/22/2023 12:00 PM Provider ORALIA US[facility] [place] Department Vascular Lab [facility] Date & Time 06/22/2023 12:45 PM Provider Jean Garcia MD Department Vascular Surg [facility] ) Brissa Palacios PA-C [Physician Storage Brine Worker] - (Date & Time 08/12/2023 11:20 AM Provider Brissa Palacios PA-C Department Neurology [facility] ) Rohan Mckenzie DO [Primary Care Provider] - (Date & Time 06/24/2023 8:20 AM Provider Emi Wheeler MD Department [facility] ) Diet: Carb Consistent or DM2 and Heart Healthy Addtl Attending Provider Instructions: Follow-up with your primary care physician within a week time and likely you will need labs CBC/CMP/magnesium/phosphorus. You had acute stroke while in the hospital, you will need vascular surgery follow-up within a week time of discharge. It is important. Coordinate with your PCP office to set up the appointment. Follow-up with neurology in 2 to 4 weeks time upon discharge. You will need outpatient cardiac monitoring, coordinate with your cardiology office or PCP office to set up the test. You also had acute on chronic heart failure with reduced ejection fraction, cardiology evaluated you, your medications has been optimized. Follow-up with cardiology in 2 to 4 weeks time upon discharge. You will benefit from outpatient sleep study, coordinate with your PCP office to set up the test. As discussed at the bedside, your A1c is 6.4 which is prediabetes. You will need lifestyle modification as discussed. Follow-up with the PCP office for long-term follow-up/management. As discussed at the bedside, there is concern of 7 mm left lower lobe nodular opacity in your chest CT while in hospital. You will need repeat CT of the chest in 3 to 4-month time to follow-up on this. Coordinate with the PCP office to set up the test. Take your medications as prescribed. Please make sure that you are able to get your medications today by calling your pharmacy before you leave the hospital so that your treatment continuity is not broken. Addtl Lan Analyst Provider Instructions: Call 911 and go to the Emergency Room if: * You have tightness or pain in your chest that does not go away with rest or Nitroglycerin * You are very short of breath even with rest Call your doctor if any of the following symptoms or problems start or get worse: * Shortness of breath or difficulty breathing * Wake up at night short of breath * Chest pain * Cough * Swelling of your hands, fee, or legs * More fatigued or tired with your normal activity * Palpitations - sudden fast heart beats WEIGHT * Weigh yourself every morning after using the bathroom. * Use the same scale. * Wear the same amount of clothing. * Write your weight down on your chart. * Call your doctor if you gain more than 2-3 pounds in 1-2 days. MEDICATIONS * Use this discharge instruction sheet for instructions. * Take your medications at the time your doctor ordered. * Do not skip a dose of your medicines. * If you miss a dose of medicine, take as soon as possible, but DO NOT DOUBLE A DOSE. * Read your medicine information when you get home. * Know all of the side effects of your medicine. * Call your doctor's office if you have any side effects. * Be sure all of your doctors know what medicine and herbs you take (including cold, flu, and herbal medicine). * Pain Medicine: If you do not get relief from your pain, please call your doctor for help. Take the following with you to your follow-up doctor appointments: * Weight Chart * Medication List * List of questions Do not drink excessive alcohol, beer or wine. Pending Studies at Discharge: Yes Stand-Alone Forms: My [employer]Are[employer], Smoking Cessation, Medications to Prevent Stroke Medications and DC Order Prescriptions: New clopidogrel 75 mg Tablet 75 mg PO QAM Qty: 30 0RF metoprolol succinate 25 mg Tablet Extended Release 24 Hr 25 mg PO DAILY@1800 Qty: 30 0RF metoprolol succinate 50 mg Tablet Extended Release 24 Hr 50 mg PO QAM Qty: 30 0RF spironolactone 25 mg Tablet 25 mg PO DAILY Qty: 30 0RF Continued aspirin 81 mg Tablet,Delayed Release (Dr/Ec) 81 mg PO QAM Qty: 30 11RF nitroglycerin [Nitrostat] 0.4 mg Tablet, Sublingual 0.4 mg sublingual PRN PRN (Reason: chest pain) Qty: 30 11RF Patient Comments: never used it// patient has at home Rx Instructions: 1 tab under tongue every 5 mins as needed for chest pain,may take max 3 tabs in 15 minutes ezetimibe [Zetia] 10 mg Tablet 10 mg PO QAM Qty: 30 11RF furosemide [Lasix] 40 mg Tablet 40 mg PO DAILY econazole 1 % cream 1 applic TOPICAL 2XWK albuterol sulfate 90 mcg/actuation HFA aerosol inhaler 2 puff INHALATION DIRECTED PRN (Reason: Shortness Of Breath Or Wheezing) PreserVision AREDS 4,296 mcg-226 mg-90 mg Capsule 1 cap PO QAM simvastatin 40 mg tablet 40 mg PO HS allopurinol 300 mg tablet 300 mg PO HS vitamin B complex Tablet 1 tab PO DAILY losartan 100 mg tablet 100 mg PO DAILY Discontinued metoprolol succinate 50 mg tablet extended release 24 hr 25 mg PO DAILY Discharge Orders: Discharge Order- CHF (Routine); Ordered 06/19/23 Ordered By: José Miguel Zhong/Other Patient Handouts: Prediabetes, 5 Steps for Eating Healthier Admission Data Admit Date/Time: 06/15/23 16:46 Attending Provider: José Miguel Bal Admit Provider: Leyla Sanon Primary Care Provider: Rohan Mckenzie Other Providers: Leyla Sanon; Lin Peters; Zenon Siu; Pardeep Lo; Cindy Monte; Amari Parra; Víctor Mcclain; Wil Aguillon; Micky Garcia; Matias Chinchilla; Karie Swanson; Brissa Oglesby; Cindy Mcarthur; Grady Hahn; Scooby Henderson; Mercedes Claudio; Neema Simmons; Zaira Fine; Venkat Whitaker; [place]
[2023-06-20] MEDS ORDERED: FUROSEMIDE 40 MG TAB PO SCH (09:00)
== END 2023-06-19 15:12 | disposition home health service (06) | DRG 61 ==
LOC: ED 15:52 → SUATTDRO 16:46 → EDINP 16:46 → 1E 17:40

== ENCOUNTER 2024-08-04 00:31 | Inpatient (IN) ==
--- NOTE | 2024-08-04 00:45 | Emergency Department Note ---
Impression & Plan Respiratory arrest before cardiac arrest, Multiple fractures of ribs, left side, initial encounter for closed fracture, Acute kidney injury, Acute hyponatremia, Acute hypoxemic respiratory failure, Transaminitis, Hyperbilirubinemia ED Provider Note NAME: ZACHARIAH RIDER AGE: 69 SEX: M : 1955 ARRIVES VIA: Ambulance INFORMANT: Patient, EMS report, daughter ED PROVIDER(S): John Barnett MD CHIEF COMPLAINT: Postarrest, change in mentation, breathing issue MEDICAL DECISION MAKING: Patient presents as a postarrest. Unclear as to whether or not the patient had a respiratory arrest as the patient did receive CPR but no shocks or meds administered and the patient is awake alert following commands. Patient did have CT head neck cervical spine and face chest abdomen pelvis. I did send EKGs to Dr. Parra after speaking with him about what had occurred. Patient was ordered IV Zosyn as a precaution in light of the patient's most recent infectious symptoms and that he was being treated as such with antibiotics as an outpatient. Patient was requiring supplemental oxygen. Patient's blood work shows a white count of 14.7 with a normal hemoglobin and platelet count. VBG with a pH 7.3 with a pCO2 of 50. Sodium 128 with potassium 5.4. Creatinine today of 2.2 for which she is a change although unknown most recent creatinine. Creatinine from July 10 was 0.8. Patient's bilirubin of 2 and transaminitis with an AST of 727 ALT of 427 and alk phos of 331. Patient was reassessed and has no right upper quadrant pain. Patient's troponin six 7.5. BioFire negative. Patient's head and neck CTs are negative. Patient's face CT is negative for fracture but does show sinusitis. CT of the chest did not show fractures involving fourth fifth sixth and seventh ribs. Old fractures also noted. Patchy ill-defined groundglass opacity noted right upper lobe. Also bilateral pleural effusions with basal subsegmental collapse of both lower lobes. Given the patient's fractures which could be attributable to the fall versus his CPR and a did message on-call scoring machine operator AMANDA Andres recommend discussion with trauma. Edition a a transfer call to the transfer center to [facility]. Per transfer center they stated that given the rib fractures with CPR they would not accept it is a trauma transfer but could be discused w/ cardiology as he was a postarrest. Patient does not require transfer for cardiology evaluation postarrest at this time. Do believe that the patient's etiology of his arrest was likely initially respiratory in nature. The patient's report status post interrogation of pacemaker defibrillator was unremarkable per the [facility] rep. Patient CT abdomen pelvis shows aneurysmal dilatation of abdominal aorta just above the bifurcation of the iliacs. Lung findings as noted on CT chest. Also did comment about fat stranding to the left proximal and ureter. Patient noted had already received Zosyn. Also, into minimal fluid seen in the retroperitoneum anterior to bilateral psoas. I did consider retroperitoneal bleeding but the patient had a fall 2 days ago he is on antiplatelets but no other blood thinners did not strike his back and has no flank pain. Believe retroperitoneal bleeding to be less likely. I did inform the patient and the patient's daughter the findings. He is comfortable plan of care. Patient does have some associated rib pain was ordered IV Ofirmev and lidocaine patch. Also subsequently ordered IV fentanyl 50 MCG as the patient was still having pain with coughing. I did convey these recommendations to the scoring machine operator and AMANDA Douglas as well as the on-call hospital service Dr. Salguero. The patient was admitted to the medicine service. Of note patient was able to be titrated to 4 L via oxime mask and had sats in the low 90s. Off oxygen the patient was 84%. Critical Care: I have personally spent 125 minutes of critical care time in direct management of this patient. This includes bedside care, interpretation of diagnostic studies, and testing, discussion with consultants, patient, and family members, and other require inpatient management activities. This 125 minutes is in excess of all separately billable procedures. Discussion w/ other healthcare providers: Dr. Aida Wilkerson cardiology [place] physician relations representative AMANDA Andres scoring machine operator Dr. Salguero inpatient medicine service Prior /Outside records reviewed: I reviewed part of a discharge summary from Dr. Bal from June 2023. Known history of CAD status post LALIT to the RCA in 2019 hypertension hyperlipidemia. Patient reportedly did a stroke at that time. CT with calcified thrombus of left MCA territory. Patient did receive TNK. I did review a procedure note from Dr. Lacy from March 07, 2024. Known history of VT with syncope sinus bradycardia CHF and the patient did have plantable cardiac defibrillator placed at that time. Differential diagnosis: Cardiac ischemia, aortic dissection, pulmonary embolism, pneumothorax, pneumonia, pericarditis, myocarditis, GERD, cholecystitis, pancreatitis, musculoskeletal, as well as other pathologies were considered. Diagnostics, as interpreted by me: ECG: A-fib with occasional paced beats, rate of 81 wide QRS right bundle branch block pattern, depressions noted in V2 and V3. No obvious ST elevations, Q waves noted inferiorly. This is a change from comparison EKG February 24, 2024. Cardiac monitoring: An order was placed for continuous cardiac monitoring. The monitor shows a rate of 82 with A-fib rhythm. Patient was placed on pulse oximetry Medical decision rules: None Imaging studies: I informally interpreted the patient's Chest x-ray without obvious rib fracture, pleural effusion noted in the right chest with opacities noted in the right chest. with formal report to follow. HPI: Patient presents due to concern for postarrest. Initially EMS reports that the patient was having difficulty with breathing when BLS arrived the patient had agonal breathing was apneic they reported pulses CPR was initiated. CPR was continued for 5 minutes no medications administered. AED pads were applied and no shock advised. Paramedics gave blood pressure 155/100 with a heart rate of 74 respiratory rate of 24 and 15 L. BSG 101. Patient reportedly does have prior history of a catheter in the chest to drain fluid. The patient reportedly did have a fall 2 days ago and fell to his left side. Patient does have a known history of a defibrillator and seem to be in a paced rhythm per EMS prior to arrival. Patient is awake alert. Patient states that he does have some left- sided facial pain as well as left-sided chest pain since he had CPR. Patient does have a significant cardiac history with known prior CAD ischemic cardiomyopathy the and defibrillator pacemaker placement. Patient states that he does have some left-sided chest pain since the fall but this does not feel similar to when he required prior stents. Most recently did require coronary intervention March 07, 2020 with a drug-eluting stent to the proximal and mid right coronary. Patient also has prior history of recurrent pleural effusion. The patient did have his catheter pulled he believes in June. The patient is on blood thinner medication. Per review of medication list and also on aspirin and Plavix but no other thinners. He is also on amiodarone. He reports he does follow with Dr. Mcclain. Patient states that he has had productive cough and issues with the lungs and is currently on antibiotics. Patient denies any shortness of breath currently but states that he did have some earlier in the day. Family had reported that he has had a change in his mentation since the fall 2 days prior. Patient reportedly fell in the kitchen and struck the tile floor. Patient states that he did have x-rays completed at [facility] today at Dr. Salmon's office. PAST MEDICAL HISTORY: See Below PAST SURGICAL HISTORY: See Below SOCIAL HISTORY: See Below HOME MEDICATIONS: See Below ALLERGIES: See Below VITALS: See Below PHYSICAL EXAMINATION: GENERAL: Nonrebreather in place. EYE EXAM: Left-sided subconjunctival hemorrhage without obvious hyphema or hypopyon, PERRL, no anisocoria and EOM's grossly intact w/o pain. Face: Left-sided facial swelling/hematoma with associated ecchymosis. No proptosis. OROPHARYNX: Moist mucus membranes, grossly normal dentition. NECK: Trachea midline, no stridor. Supple, no nuchal rigidity, no adenopathy, non-tender. No signs of meningismus. FROM of the neck with good chin to chest and neck extension. No midline C-spine TTP. Chest: Device noted to left chest, tenderness to palpation left chest. No right-sided chest wall pain. LUNGS: Crackles noted to the bilateral chest. No obvious wheezing. Normal chest wall mechanics. HEART: Irregularly irregular, no MRG. ABDOMEN: Abdomen soft, non-tender, no masses, no rebound or guarding. BACK: No CVA TTP. SKIN: Bruising as noted above. UPPER EXTREMITIES: Upper extremities are grossly normal. No TTP or deformity. LOWER EXTREMITIES: Grossly normal, 1+ symmetric lower extremity edema without calf pain or erythema. No TTP or deformity. NEURO EXAM: A&O x3, cranial nerves II-XII grossly intact, normal speech, moves all 4 extremities. 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 1996 Circumflex, 02/16/2020 Proximal LAD, 03/07/2020 Proximal and Mid RCA NSVT (nonsustained ventricular tachycardia) Ischemic cardiomyopathy Surgical History History of colonoscopy with polypectomy multiple - prior villous adenoma in 2007 History of oral surgery excision of right mouth floor lesion, right submandibular gland, suprahyoid lymphadenectomy - 2016 History of cataract extraction History of appendectomy Stented coronary artery H/O heart artery stent Family History Father Heart disease Prostate cancer Brother Heart disease Social History Smoking Status: Never smoker Second Hand Exposure: No; Do You Dip or Chew Tobacco: No; Hx Alcohol Use: Yes Alcohol type: beer Hx Substance Use: No Preferred Language: Lithuanian Communication Ability: Effective B2B Account Executive Required: No Beliefs That Will Affect Care: None marital status: Current Living Situation: Spouse Feels Safe at Home: Yes Assistive Devices: None Allergies Allergies Allergy/AdvReac Type Severity Reaction Status Date / Time spironolactone AdvReac Unknown Verified 03/01/24 09:12 Home Meds Home Medications Medication Instructions Recorded Confirmed allopurinol 300 mg tablet 300 mg PO HS 01/02/21 08/04/24 vitamin B complex 1 tab PO DAILY 01/02/21 08/04/24 albuterol sulfate 90 mcg/actuation 2 puff inhalation DIRECTED PRN 06/15/23 08/04/24 aerosol inhaler Shortness Of Breath Or Wheezing furosemide 40 mg tablet (Lasix) 40 mg PO DAILY 06/15/23 08/04/24 vitamins A,C,Z-atpk-[id number] 4,296 1 cap PO QAM 06/15/23 08/04/24 mcg-226 mg-90 mg capsule (PreserVision AREDS) amiodarone 200 mg tablet 200 mg PO BID 03/01/24 08/04/24 eplerenone 25 mg tablet 25 mg PO QAM 03/01/24 08/04/24 rosuvastatin 10 mg tablet 10 mg PO DAILY 03/01/24 08/04/24 sacubitril 97 mg-valsartan 103 mg 1 tab PO BID 03/01/24 08/04/24 tablet (Entresto) doxycycline hyclate 100 mg capsule 100 mg PO AMHS 08/04/24 08/04/24 fluticasone fur. 100 mcg-umeclid 1 ea inhalation QAM 08/04/24 08/04/24 62.5 mcg-vilant 25 mcg inhalat.powder (Trelegy Ellipta) gabapentin 300 mg capsule 300 mg PO AMHS 08/04/24 08/04/24 Previous Rx's Medication Instructions Recorded aspirin 81 mg tablet,delayed 81 mg PO QAM #30 tabs 02/17/20 release ezetimibe 10 mg tablet (Zetia) 10 mg PO QAM #30 tabs 02/17/20 nitroglycerin 0.4 mg sublingual 0.4 mg sublingual PRN PRN chest 02/17/20 tablet (Nitrostat) pain #30 tabs clopidogrel 75 mg tablet 75 mg PO QAM #30 tabs 06/19/23 metoprolol succinate 25 mg 25 mg PO DAILY@1800 #30 tabs 06/19/23 tablet,extended release 24 hr metoprolol succinate 50 mg 50 mg PO QAM #30 tabs 06/19/23 tablet,extended release 24 hr Results & Data (ED) Vital Signs Vital Signs - 24 hr 08/04/24 00:35 08/04/24 00:36 08/04/24 00:38 Pulse Rate 83 81 60 Pulse Rate from SpO2 Sensor Respiratory Rate 17 24 Respiratory Effort / Characteristics Respiratory Depth Normal Respiratory Pattern Blood Pressure 135/79 135/79 Blood Pressure Mean 97 97 Pulse Oximetry 92 100 Oxygen Delivery Method Nasal Cannula Room Air Oxygen Flow Rate 2 Fraction of Inspired Oxygen Sepsis Recent Fever Within 48 Hours No Sepsis New/Unexplained Change in Mental Status No Sepsis Action Taken by Nursing No Action Required 08/04/24 00:44 08/04/24 00:44 08/04/24 00:46 Pulse Rate Pulse Rate from SpO2 Sensor Respiratory Rate Respiratory Effort / Characteristics Non-Labored Respiratory Depth Respiratory Pattern Blood Pressure Blood Pressure Mean Pulse Oximetry Oxygen Delivery Method Room Air Nasal Cannula Oxygen Flow Rate 2 Fraction of Inspired Oxygen Sepsis Recent Fever Within 48 Hours Sepsis New/Unexplained Change in Mental Status Sepsis Action Taken by Nursing 08/04/24 00:51 08/04/24 01:22 08/04/24 01:36 Pulse Rate 62 60 60 Pulse Rate from SpO2 Sensor 61 60 Respiratory Rate 22 20 20 Respiratory Effort / Characteristics Respiratory Depth Respiratory Pattern Blood Pressure 118/66 118/72 127/72 Blood Pressure Mean 83 100 90 Pulse Oximetry 94 95 91 Oxygen Delivery Method Nasal Cannula Nasal Cannula Oxygen Flow Rate 2 2 Fraction of Inspired Oxygen Sepsis Recent Fever Within 48 Hours Sepsis New/Unexplained Change in Mental Status Sepsis Action Taken by Nursing 08/04/24 02:00 08/04/24 03:00 08/04/24 03:12 Pulse Rate 60 60 60 Pulse Rate from SpO2 Sensor 60 Respiratory Rate 16 21 21 Respiratory Effort / Characteristics Non-Labored Spontaneous Respiratory Depth Normal Respiratory Pattern Regular Blood Pressure 126/71 134/91 Blood Pressure Mean 100 95 Pulse Oximetry 93 95 96 Oxygen Delivery Method Nasal Cannula CPAP Oxygen Flow Rate 2 Fraction of Inspired Oxygen 30 Sepsis Recent Fever Within 48 Hours Sepsis New/Unexplained Change in Mental Status Sepsis Action Taken by Nursing 08/04/24 03:30 08/04/24 04:00 08/04/24 04:12 Pulse Rate 60 60 60 Pulse Rate from SpO2 Sensor 60 60 Respiratory Rate 17 16 Respiratory Effort / Characteristics Respiratory Depth Respiratory Pattern Blood Pressure 154/94 H 147/93 H Blood Pressure Mean 111 129 Pulse Oximetry 94 96 Oxygen Delivery Method CPAP Oxymask Oxygen Flow Rate 10 Fraction of Inspired Oxygen Sepsis Recent Fever Within 48 Hours Sepsis New/Unexplained Change in Mental Status Sepsis Action Taken by [facility] Medications Current Medication List: was personally reviewed by me Laboratory Data Attestation: I reviewed the patient's lab results. 08/04/24 00:39 08/04/24 00:39 Lab Results 08/04/24 08/04/24 08/04/24 Range/Units 00:39 00:50 00:55 WBC 14.75 H (4.8-10.8) K/ul RBC 4.83 (4.70-6.10) M/uL Hgb 15.1 (14.0-18.0) g/dl POC Hgb (14.0-18.0) g/dl Hct 46.8 (42.0-52.0) % POC Hct (42-52) % MCV 96.9 (80.0-100.0) fL MCH 31.3 (25.0-34.0) pg MCHC 32.3 (32.0-36.0) g/dL RDW Std Deviation 54.6 H (36.4-46.3) fL RDW Coeff of Sim 15.6 H (11.5-14.5) % Plt Count 147 (130-400) K/uL MPV 9.5 (9.4-12.4) fL Immature Gran % (Auto) 3.4 % Neut % (Auto) 71.1 % Lymph % (Auto) 14.1 % [place] % (Auto) 10.9 % Eos % (Auto) 0.1 % Baso % (Auto) 0.4 % Neut # (Auto) 10.49 H (1.40-6.50) K/uL Lymph # (Auto) 2.08 (1.20-3.40) K/uL [place] # (Auto) 1.61 H (0.11-0.59) K/uL Eos # (Auto) 0.01 (0.00-0.50) K/uL Baso # (Auto) 0.06 (0.00-0.20) K/uL Immature Gran # (Auto) 0.50 H (0.01-0.20) K/uL Absolute Nucleated RBC 0.05 (0.00-0.12) K/uL Nucleated RBC % (auto) 0.3 % PT Cancelled INR Cancelled APTT Cancelled PTT Ratio Cancelled VBG pH 7.31 L (7.36-7.41) VBG pCO2 50 (38-50) mmHg VBG pO2 27 mmHg VBG HCO3 25 mmol/L VBG O2 Saturation < 60.0 % VBG Base Excess -1.7 mEq/L POC Sodium (135-144) mmol/L Sodium 128 L (136-145) mmol/L POC Potassium (3.3-5.0) mmol/L Potassium 5.4 H (3.5-5.1) mmol/L POC Chloride (101-112) mmol/L Chloride 89 L (98-107) mmol/L Carbon Dioxide 24 (21-32) mmol/L POC Total CO2 (24-31) mmol/L Anion Gap 15 H (3-11) POC Anion Gap (16-25) mmol/L POC BUN (7-18) mg/dl BUN 30 H (6-23) mg/dl Creatinine 2.24 H (0.6-1.4) mg/dl POC Creatinine (0.6-1.3) mg/dl Est Cr Clr Drug Dosing 39.7 ml/min eGFR 30.95 BUN/Creatinine Ratio 13.4 (10-20) Glucose 96 (70-99(Fasting)) mg/dl POC Glucose (other) (70-99) mg/dl Calcium 9.9 (8.6-10.3) mg/dl POC Ioniz Calcium Moises (1.12-1.32) mmol/l Total Bilirubin 2.0 H (0.2-1.0) mg/dl AST 727 H (13-39) U/L ALT 427 H (7-52) U/L Alkaline Phosphatase 331 H (34-104) U/L Troponin I High Sens 67.5 H* (0-20) pg/ml Total Protein 7.3 (6.0-8.3) gm/dl Albumin 4.1 (3.4-5.0) gm/dl Globulin 3.2 (2.5-4.0) gm/dl Albumin/Globulin Ratio 1.3 (0.9-2) Lipase 44 (11-82) U/L Nasal Screen MRSA (PCR) Negative (Negative) Adenovirus (PCR) Not Detected (NotDetected) B. pertussis DNA (PCR) Not Detected (NotDetected) B.parapertussis DNA PCR Not Detected (NotDetected) C. pneumoniae DNA (PCR) Not Detected (NotDetected) Coronavirus OC43 (PCR) Not Detected (NotDetected) Coronavirus HKU1 (PCR) Not Detected (NotDetected) Coronavirus 229E (PCR) Not Detected (NotDetected) SARS-CoV-2 (PCR) Not Detected (NotDetected) Coronavirus NL63 (PCR) Not Detected (NotDetected) Human Metapneumovir PCR Not Detected (NotDetected) Influenza Type A (PCR) Not Detected (NotDetected) Influenza Type B (PCR) Not Detected (NotDetected) M. pneumoniae (PCR) Not Detected (NotDetected) Parainfluenza 1 (PCR) Not Detected (NotDetected) Parainfluenza 2 (PCR) Not Detected (NotDetected) Parainfluenza 3 (PCR) Not Detected (NotDetected) Parainfluenza 4 (PCR) Not Detected (NotDetected) RSV (PCR) Not Detected (NotDetected) Entero/Rhino (PCR) Not Detected (NotDetected) 08/04/24 08/04/24 08/04/24 Range/Units 00:57 01:03 03:02 WBC (4.8-10.8) K/ul RBC (4.70-6.10) M/uL Hgb (14.0-18.0) g/dl POC Hgb 13.9 L (14.0-18.0) g/dl Hct (42.0-52.0) % POC Hct 41 L (42-52) % MCV (80.0-100.0) fL MCH (25.0-34.0) pg MCHC (32.0-36.0) g/dL RDW Std Deviation (36.4-46.3) fL RDW Coeff of Sim (11.5-14.5) % Plt Count (130-400) K/uL MPV (9.4-12.4) fL Immature Gran % (Auto) % Neut % (Auto) % Lymph % (Auto) % [place] % (Auto) % Eos % (Auto) % Baso % (Auto) % Neut # (Auto) (1.40-6.50) K/uL Lymph # (Auto) (1.20-3.40) K/uL [place] # (Auto) (0.11-0.59) K/uL Eos # (Auto) (0.00-0.50) K/uL Baso # (Auto) (0.00-0.20) K/uL Immature Gran # (Auto) (0.01-0.20) K/uL Absolute Nucleated RBC (0.00-0.12) K/uL Nucleated RBC % (auto) % PT 16.8 H INR 1.6 H APTT 28 PTT Ratio 1.0 VBG pH (7.36-7.41) VBG pCO2 (38-50) mmHg VBG pO2 mmHg VBG HCO3 mmol/L VBG O2 Saturation % VBG Base Excess mEq/L POC Sodium 128 L (135-144) mmol/L Sodium (136-145) mmol/L POC Potassium 5.4 H (3.3-5.0) mmol/L Potassium (3.5-5.1) mmol/L POC Chloride 93 L (101-112) mmol/L Chloride (98-107) mmol/L Carbon Dioxide (21-32) mmol/L POC Total CO2 25 (24-31) mmol/L Anion Gap (3-11) POC Anion Gap 17.0 (16-25) mmol/L POC BUN 28 H (7-18) mg/dl BUN (6-23) mg/dl Creatinine (0.6-1.4) mg/dl POC Creatinine 2.3 H (0.6-1.3) mg/dl Est Cr Clr Drug Dosing ml/min eGFR BUN/Creatinine Ratio (10-20) Glucose (70-99(Fasting)) mg/dl POC Glucose (other) 96 (70-99) mg/dl Calcium (8.6-10.3) mg/dl POC Ioniz Calcium Moises 1.10 L (1.12-1.32) mmol/l Total Bilirubin (0.2-1.0) mg/dl AST (13-39) U/L ALT (7-52) U/L Alkaline Phosphatase (34-104) U/L Troponin I High Sens 420.7 H* D (0-20) pg/ml Total Protein (6.0-8.3) gm/dl Albumin (3.4-5.0) gm/dl Globulin (2.5-4.0) gm/dl Albumin/Globulin Ratio (0.9-2) Lipase (11-82) U/L Nasal Screen MRSA (PCR) (Negative) Adenovirus (PCR) (NotDetected) B. pertussis DNA (PCR) (NotDetected) B.parapertussis DNA PCR (NotDetected) C. pneumoniae DNA (PCR) (NotDetected) Coronavirus OC43 (PCR) (NotDetected) Coronavirus HKU1 (PCR) (NotDetected) Coronavirus 229E (PCR) (NotDetected) SARS-CoV-2 (PCR) (NotDetected) Coronavirus NL63 (PCR) (NotDetected) Human Metapneumovir PCR (NotDetected) Influenza Type A (PCR) (NotDetected) Influenza Type B (PCR) (NotDetected) M. pneumoniae (PCR) (NotDetected) Parainfluenza 1 (PCR) (NotDetected) Parainfluenza 2 (PCR) (NotDetected) Parainfluenza 3 (PCR) (NotDetected) Parainfluenza 4 (PCR) (NotDetected) RSV (PCR) (NotDetected) Entero/Rhino (PCR) (NotDetected) Administered Medications Discontinued Medications Fentanyl Citrate (Fentanyl Citrate Pf 100 Mcg/2 Ml Vial) 50 mcg IV NOW STA Stop: 08/04/24 04:06 Last Admin: 08/04/24 04:17 Dose: 50 mcg Documented By: DML Piperacillin Sod/Tazobactam Sod (Zosyn) 4.5 gm in 100 mls @ 200 mls/hr IV NOW ONE; Protocol Stop: 08/04/24 01:08 Last Infusion: 08/04/24 02:13 Dose: Infused Documented By: Admin: 08/04/24 01:24 Dose: 200 mls/hr Documented By: Acetaminophen (Ofirmev) 1,000 mg in 100 mls @ 400 mls/hr IV NOW STA Stop: 08/04/24 02:46 Last Infusion: 08/04/24 03:11 Dose: Infused Documented By: Admin: 08/04/24 02:38 Dose: 400 mls/hr Documented By: Calcium Gluconate () 1,000 mg in 60 mls @ 240 mls/hr IV NOW STA Stop: 08/04/24 05:31 Last Infusion: 08/04/24 05:58 Dose: Infused Documented By: Admin: 08/04/24 05:27 Dose: 240 mls/hr Documented By: Levalbuterol HCl (Levalbuterol 1.25 Mg/3 Ml Neb) 1.25 mg NEB NOW STA Stop: 08/04/24 02:27 Last Admin: 08/04/24 02:38 Dose: 1.25 mg Documented By: Lidocaine (Lidocaine 5% 1 Patch) 1 patch TD NOW STA Stop: 08/04/24 04:06 Last Admin: 08/04/24 04:17 Dose: 1 patch Documented By: DML Imaging Data Radiologist's Impression: Cervical Spine CT 08/04/24 00:40 EXAM: CT cervical spine wo con CLINICAL HISTORY: reports pt is post cardiac arrest after his found him unresponsive with agonal resp while laying in bed. pt had CPR for 5 mins, no shocks advised. on ALS arrival to pt he was alert and oriented, maintaining his airway indepenedently. family reported pt fell 2 days ago, hitting his head and has been altered since, has hematoma to left eye and cheek. TECHNIQUE: Computed tomography of the cervical spine performed without intravenous contrast. Contiguous axial images were obtained from the skull base to T2, with sagittal and coronal reformatted images reconstructed from the axial data. CT scan was performed according to ALARA (as low as reasonable achievable). COMPARISON: None. FINDINGS: Loss of cervical lordosis - suggest possibility of muscle spasm/positional. Degenerative changes involving cervical spine in the form of multilevel marginal osteophytes, disc space reduction and facetal arthrosis. Cervical vertebral bodies are normal in height and alignment, with no evidence of fracture or subluxation. Lateral masses of C1 are symmetrical, and the dens is intact. Prevertebral soft tissues are not widened. The remaining suprahyoid and infrahyoid soft tissues in the neck are unremarkable. Posterior uncovertebral arthrosis is noted at C5-C6 and C6-C7 levels, which indenting ventral thecal sac and causes bilateral neuroforaminal narrowing. Thyroid gland appears unremarkable. IMPRESSION: 1.No acute fracture or subluxation in the cervical spine. 2.Cervical spondylosis. Electronically signed by Will Valentin 08-04-2024 02:38 AM Chest X-Ray 08/04/24 00:40 EXAM: XR chest 1V portable CLINICAL HISTORY: TRAUMA/POST CPR SDM TECHNIQUE: Radiograph of chest was acquired. COMPARISON: 01 march 2024. FINDINGS: Pacemaker noted in situ. Cardiomegaly is detected. No significant interval change. Blunting of the right costophrenic angle is noted, suggestive of pleural effusion. Left costophrenic angle appear clear. Stable age indeterminate fracture of the left eighth rib is noted. Haziness is noted in the right lung burnett, either due to pleural effusion or radiographic obliquity. Rest of the lung burnett appear clear. Rest of the findings are unchanged. IMPRESSION: 1. Cardiomegaly is detected. No significant interval change. 2. Blunting of the right costophrenic angle is noted, suggestive of pleural effusion. No significant interval change. 3. Haziness is noted in the right lung burnett, either due to pleural effusion or radiographic obliquity. 4. Stable age indeterminate fracture of the left eighth rib is noted. No significant interval new findings noted as compared to the previous radiograph. Electronically signed by Will Valentin 08-04-2024 03:[address] 08/04/24 00:40 EXAM: CT facial bones wo con CLINICAL HISTORY: reports pt is post cardiac arrest after his found him unresponsive with agonal resp while laying in bed. pt had CPR for 5 mins, no shocks advised. on ALS arrival to pt he was alert and oriented, maintaining his airway indepenedently. family reported pt fell 2 days ago, hitting his head and has been altered since, has hematoma to left eye and cheek. TECHNIQUE: Computed tomography of the orbits/face was performed without intravenous contrast. Contiguous axial images were obtained. Reformatted coronal and sagittal images were also reviewed. CT scan was performed according to ALARA (as low as reasonable achievable). COMPARISON: none. FINDINGS: Right frontal and bilateral maxillary sinusitis. S shaped nasal septum deviation with bony spur formation. No acute facial fractures. Rest of paranasal sinuses and mastoid air cells are clear. The globes, optic nerves, extraocular muscles and retro-orbital fat are grossly unremarkable. Reformatted imaging demonstrates intact roof and floor of the orbits. Included portions of the mandible are intact. The included intracranial substances and airway are unremarkable. IMPRESSION: Right frontal and bilateral maxillary sinusitis. S shaped nasal septum deviation with bony spur formation. No obvious facial bone fracture. Electronically signed by Will Valentin 08-04-2024 02:[address] 08/04/24 00:40 EXAM: CT head/brain wo con CLINICAL HISTORY: reports pt is post cardiac arrest after his found him unresponsive with agonal resp while laying in bed. pt had CPR for 5 mins, no shocks advised. on ALS arrival to pt he was alert and oriented, maintaining his airway indepenedently. family reported pt fell 2 days ago, hitting his head and has been altered since, has hematoma to left eye and cheek. TECHNIQUE: Multiple axial images are obtained from the skull base to the vertex without contrast. CT scan was performed according to ALARA (as low as reasonable achievable). 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 FINDINGS: There is cerebral atrophy. No evidence of space occupying lesion, hemorrhage, edema, mass effect, midline shift, extra axial collection, or hydrocephalus is noted. Basal cisterns are symmetric and normal in size and configuration. There are scattered periventricular hypodensities as can be seen with chronic microvascular ischemic changes. The painter-white matter differentiation is preserved. Left maxillary sinusitis. Rest of paranasal sinuses and mastoid air cells are well aerated. Orbital contents are within normal limits. Bony structures are intact. IMPRESSION: 1. No evidence of acute intracranial abnormality is demonstrated. 2. Chronic microvascular ischemic changes. 3. Cerebral atrophy. No other new interval abnormality since prior study. Electronically signed by Will Valentin 08-04-2024 02:22 AM Abdomen/Pelvis CT 08/04/24 01:03 EXAM: CT abd pelvis wo con CLINICAL HISTORY: reports pt is post cardiac arrest after his found him unresponsive with agonal resp while laying in bed. pt had CPR for 5 mins, no shocks advised. on ALS arrival to pt he was alert and oriented, maintaining his airway indepenedently. family reported pt fell 2 days ago, hitting his head and has been altered since, has hematoma to left eye and cheek. TECHNIQUE: Contiguous axial images were obtained from the level of the diaphragm to the pubic symphysis without intravenous or oral contrast. Coronal and sagittal reconstructions were likewise performed and indicated to increase the sensitivity for detecting clinically relevant pathology. CT scan was performed according to ALARA (as low as reasonable achievable). 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 Evaluation of the abdominal and pelvic visceral organs is limited without intravenous contrast. The unenhanced liver, spleen, pancreas, and adrenal glands are grossly unremarkable. The gallbladder is present. The kidneys are normal in size and attenuation without obvious calcification. There is no hydronephrosis . Mild bilateral perinephric stranding. The ureters are normal in caliber. Extensive fat stranding seen around left proximal and mid ureter. Minimal fluid seen in retroperitoneum anterior to bilateral psoas. No adenopathy or fluid collections are seen. No evidence of focal or diffuse bowel wall thickening or evidence of bowel obstruction is seen. No evidence of inflamed appendix. Diffuse atherosclerotic calcification is noted involving aorta iliac arteries. Mild focal aneurysmal dilatation of abdominal aorta just above the bifurcation with maximum diameter measures 33 mm. The urinary bladder is normal in contour. Pelvic viscera are grossly unremarkable. No aggressive appearing osseous lesions are identified. Bilateral fat containing inguinal hernia. Mild fat strandings are noted involving bilateral paracolic gutter. Ill-defined subarticular sclerosis with geographic appearance are noted involving bilateral femoral head suggesting avascular necrosis. IMPRESSION: Diffuse atherosclerotic calcification is noted involving aorta iliac arteries. Mild focal aneurysmal dilatation of abdominal aorta just above the bifurcation with maximum diameter measures 33 mm.-stable. Mild bilateral pleural effusion with basal subsegmental collapse of both lower lobes are seen -new finding. Linear displaced fracture of anterior end of right fourth to seventh rib. -new finding. Extensive fat stranding seen around left proximal and mid ureter- new finding. Possibility of infective/inflammatory etiology or traumatic pathology can not be ruled out. Advised CT urography correlation. Minimal fluid seen in retroperitoneum anterior to bilateral psoas- new finding. Bilateral fat containing inguinal hernia.-stable. Ill-defined subarticular sclerosis with geographic appearance are noted involving bilateral femoral head suggesting avascular necrosis.-stable. Electronically signed by Will Valentin 08-04-2024 02:[address] 08/04/24 01:03 EXAM: CT chest diagnostic wo con CLINICAL HISTORY: reports pt is post cardiac arrest after his found him unresponsive with agonal resp while laying in bed. pt had CPR for 5 mins, no shocks advised. on ALS arrival to pt he was alert and oriented, maintaining his airway indepenedently. family reported pt fell 2 days ago, hitting his head and has been altered since, has hematoma to left eye and cheek. TECHNIQUE: Contiguous axial images were obtained from the neck base through the upper abdomen without contrast. In addition, sagittal and coronal reconstructions were performed to potentially increase the sensitivity for the detection of disease. CT scan was performed according to ALARA (as low as reasonable achievable). 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 FINDINGS: Mild bilateral pleural effusion with basal subsegmental collapse of both lower lobes are seen Linear displaced fracture is noted involving anterior part of right fourth, fifth, sixth and seventh rib. Old healed fracture of left seventh and eighth rib. Patchy ill-defined ground-glass opacity with smooth interlobular septal thickening are noted involving right upper lobe Multiple linear atelectatic bands are noted in the right middle and lower lobe. No pneumothorax is seen. The central airways are patent. Evaluation of the mediastinum and nadiya is limited due to the lack of intravenous contrast. No axillary or mediastinal adenopathy is identified. The thyroid is unremarkable. The heart, aorta, and pulmonary arteries are of normal size and configuration. There are coronary artery and aortic atherosclerotic calcifications. No pericardial effusion is identified. Imaged portions of the upper abdomen are unremarkable. No aggressive appearing osseous lesions are identified. IMPRESSION: Mild bilateral pleural effusion with basal subsegmental collapse of both lower lobes are seen - increased on left side. Right pleural effusion has become loculated in current study. Linear displaced fracture is noted involving anterior part of right fourth, fifth, sixth and seventh ribs -new finding. Old healed fracture of left seventh and eighth rib. Patchy ill-defined ground-glass opacity with smooth interlobular septal thickening are noted involving right upper lobe- possibility of mild edema-new finding. Multiple linear atelectatic bands are noted in the right middle and lower lobe.- -stable. Electronically signed by Will Valentin 08-04-2024 02:34 AM Discharge Plan Visit Data Chief Complaint: Cardiac Arrest/CPR Stated Complaint: CARDIAC ARREST - [facility] ED Provider: John Barnett Discharge Problem: Respiratory arrest before cardiac arrest, Multiple fractures of ribs, left side, initial encounter for closed fracture, Acute kidney injury, Acute hyponatremia, Acute hypoxemic respiratory failure, Transaminitis, Hyperbilirubinemia Discharge Instructions Interventions: ED Discharge Assessment Last Done: 08/04/24 06:04 Forms Stand Alone Forms: My [facility] [employer] Prescriptions Prescriptions: No Action aspirin 81 mg Tablet,Delayed Release (Dr/Ec) 81 mg PO QAM Qty: 30 11RF nitroglycerin [Nitrostat] 0.4 mg Tablet, Sublingual 0.4 mg sublingual PRN PRN (Reason: chest pain) Qty: 30 11RF Patient Comments: never used it// patient has at home Rx Instructions: 1 tab under tongue every 5 mins as needed for chest pain,may take max 3 tabs in 15 minutes ezetimibe [Zetia] 10 mg Tablet 10 mg PO QAM Qty: 30 11RF furosemide [Lasix] 40 mg Tablet 40 mg PO DAILY albuterol sulfate 90 mcg/actuation HFA aerosol inhaler 2 puff INHALATION DIRECTED PRN (Reason: Shortness Of Breath Or Wheezing) PreserVision AREDS 4,296 mcg-226 mg-90 mg Capsule 1 cap PO QAM clopidogrel 75 mg Tablet 75 mg PO QAM Qty: 30 0RF metoprolol succinate 25 mg Tablet Extended Release 24 Hr 25 mg PO DAILY@1800 Qty: 30 0RF metoprolol succinate 50 mg Tablet Extended Release 24 Hr 50 mg PO QAM Qty: 30 0RF allopurinol 300 mg tablet 300 mg PO HS vitamin B complex Tablet 1 tab PO DAILY doxycycline hyclate 100 mg capsule 100 mg PO AMHS gabapentin 300 mg capsule 300 mg PO AMHS Trelegy Ellipta 100-62.5-25 mcg blister with device 1 ea INHALATION QAM amiodarone 200 mg Tablet 200 mg PO BID eplerenone 25 mg Tablet 25 mg PO QAM rosuvastatin 10 mg Tablet 10 mg PO DAILY sacubitril-valsartan [Entresto] 97-103 mg Tablet 1 tab PO BID Referrals Referrals: Rohan Mckenzie DO [Primary Care Provider] -
[2024-08-04 00:59] LABS: Basophils # (auto) 0.06 K/uL (0.00-0.20); Basophils % (auto) 0.4 %; Eosinophils # (auto) 0.01 K/uL (0.00-0.50); Eosinophils % (auto) 0.1 %; Hematocrit (blood only) 46.8 % (42.0-52.0); Hemoglobin 15.1 g/dl (14.0-18.0); Immature Granulocytes % (auto) 3.4 %; Lymphocytes # (auto) 2.08 K/uL (1.20-3.40); Lymphocytes % (auto) 14.1 %; Mean Corpuscular Hemoglobin 31.3 pg (25.0-34.0); Mean Corpuscular Hgb Conc 32.3 g/dL (32.0-36.0); Mean Corpuscular Volume 96.9 fL (80.0-100.0); Mean Platelet Volume 9.5 fL (9.4-12.4); Monocytes # (auto) 1.61 K/uL (0.11-0.59); Monocytes % (auto) 10.9 %; Neutrophils # (auto) 10.49 K/uL (1.40-6.50); Neutrophils % (auto) 71.1 %; Nucleated RBC # (auto) 0.05 K/uL (0.00-0.12); Nucleated RBC % (auto) 0.3 %; Platelet Count 147 K/uL (130-400); RDW Coefficient of Variation 15.6 % (11.5-14.5); RDW Standard Deviation 54.6 fL (36.4-46.3); Red Blood Count 4.83 M/uL (4.70-6.10); White Blood Count 14.75 K/ul (4.8-10.8)
[2024-08-04 01:06] LABS: Base Excess VBG -1.7 mEq/L; HCO3 VBG 25 mmol/L; Oxygen Saturation VBG < 60.0 %; PCO2 VBG 50 mmHg (38-50); PO2 VBG 27 mmHg; pH VBG 7.31 (7.36-7.41)
[2024-08-04 01:10] LABS: iSTAT Creatinine 2.3 mg/dl (0.6-1.3); iSTAT Hemoglobin 13.9 g/dl (14.0-18.0); iSTAT Ionized Calcium 1.1 mmol/l (1.12-1.32); iSTAT Potassium 5.4 mmol/L (3.3-5.0)
[2024-08-04 01:13] LABS: Albumin Globulin Ratio 1.3 (0.9-2); Albumin Level 4.1 gm/dl (3.4-5.0); BUN Creatinine Ratio 13.4 (10-20); Calcium 9.9 mg/dl (8.6-10.3); Creatinine Clr Calc Pharmacy 39.7 ml/min; Globulin 3.2 gm/dl (2.5-4.0); Potassium 5.4 mmol/L (3.5-5.1); Total Protein 7.3 gm/dl (6.0-8.3)
[2024-08-04] MEDS: PIPERACILLIN/TAZOBACTAM 4.5 GM/100 ML BAG IV ONE (01:24)
--- OUTSIDE RECORDS SUMMARY | 2024-08-04 01:31 | External Medical Summary | Summary of Care ---
Author Name Unknown Organization [facility] Address [address] [address] Phone [phone] Care Team Providers Care Jewelry Appraiser Name Role Phone Rohan Mckenzie DO Primary Care Provider [phone] Reason for Visit * Reason Onset Date Comments Nurse Telephone Follow Up 07/27/2024 Encounter Details Date Type Department Care Team (Late st Contact Info) Description 07/27/2024 2:00 PM EST Scheduled Telephone Interventional Pain Center, [facility] [address] [place] [address] [facility] Nurse Phone Call Interventional Pain [facility] [address] [place] [address] Arrived Allergies Active Allergy Reactions Criticality Noted Date Comments Spironolactone Other (Please comment) Medium Undesired breast changes/pain documented as of this encounter (statuses as of 07/27/2024) Medications B Complex Vitamins (B COMPLEX 50) TABS Take 1 Tablet by mouth in the morning. Active Misc. Devices MISC Custom molded extra depth shoes with accommodative inserts - Offloading of right 4th metatarsal head Dx: neuropathic ulceration right foot 1 Each 04/13/20 19 Active nitroglycerin (NITROSTAT) 0.[address] 1 Tablet under the tongue every 5 minutes as needed. Active Econazole Nitrate 1 % External Cream (Spectazole)Indic ations:History of tinea pedis,Onychomycos is Apply to feet (on nails and in between toes) 2x weekly as maintenance for tinea pedis 85 g 3 10/28/19 23 Active PreserVision AREDS Oral Capsule Take 1 Capsule by mouth in the morning and 1 Capsule before bedtime. Active Furosemide 40 MG Oral Tablet (Lasix) Take 1 Tablet by mouth in the morning. And as directed for edema, weight gain. 110 Tablet 3 06/15/20 23 Active Allopurinol 300 MG Oral Tablet (Zyloprim)Indicat ions:Gouty arthropathy TAKE 1 TABLET BY MOUTH EVERY DAY 90 Tablet 3 08/02/19 24 Active Additional Information Patient taking differently: [id number], Reported on 07/17/2024 Albuterol Sulfate HFA 108 (90 Base) MCG/ACT Inhalation Aerosol SolutionIndicatio ns:Pulmonary fibrosis (HCC),Lung nodule,PVD (peripheral vascular disease) (HCC) TAKE 2 PUFFS BY MOUTH EVERY 6 HOURS NEEDED FOR WHEEZE 18 g 3 09/13/19 24 Active Eplerenone 25 MG Oral Tablet (Inspra)Indicatio ns:Ischemic cardiomyopathy,Ac [place] systolic congestive heart failure, NYHA class 1 (HCC) Take 1 Tablet by mouth in the morning. 90 Tablet 3 10/18/19 24 Active Ezetimibe 10 MG Oral Tablet (Zetia)Indication s:High triglycerides TAKE 1 TABLET BY MOUTH EVERY DAY IN THE MORNING 90 Tablet 3 01/07/20 24 Active Aspirin Low Dose 81 MG Oral Tablet Delayed Release (aspirin enteric coated)Indication s:High triglycerides TAKE 1 TABLET BY MOUTH EVERY DAY IN THE MORNING 90 Tablet 3 01/07/20 24 Active Acetaminophen 325 MG Oral Tablet (Tylenol) Take 3 Tablets by mouth daily as needed. Active Sacubitril-Valsar apodaca 97-103 MG Oral Tablet (Entresto) Take 1 Tablet by mouth in the morning and 1 Tablet before bedtime. 180 Tablet 1 02/21/20 24 Active Metoprolol Succinate ER 25 MG Oral Tablet Extended Release 24 Hour (toPROL XL)Indications:Dy slipidemia, goal LDL below 100,Essential (primary) hypertension,Old myocardial infarction Take 1 Tablet by mouth in the morning and 1 Tablet before bedtime. Take with 50 mg tablet to equal 75 mg twice daily. 180 Tablet 3 02/24/20 24 Active Metoprolol Succinate ER 50 MG Oral Tablet Extended Release 24 Hour (toPROL XL)Indications:Dy slipidemia, goal LDL below 100,Essential (primary) hypertension,Old myocardial infarction Take 1 Tablet by mouth in the morning and 1 Tablet before bedtime. 180 Tablet 3 02/24/20 24 Active Rosuvastatin Calcium 10 MG Oral Tablet (Crestor) Take 1 Tablet by mouth in the morning. 90 Tablet 3 02/24/20 24 Active Amiodarone HCl 200 MG Oral Tablet (Cordarone) Take 1 Tablet by mouth in the morning. 90 Tablet 3 03/07/20 24 Active Clopidogrel Bisulfate 75 MG Oral Tablet (pLAVix) TAKE 1 TABLET BY MOUTH EVERY DAY IN THE MORNING 90 Tablet 3 04/10/20 24 Active Gabapentin 300 MG Oral Capsule (Neurontin)Indica tions:Spinal stenosis of lumbar region with neurogenic claudication,Spon dylosis of lumbar region without myelopathy or radiculopathy Take 1 Capsule by mouth in the morning and 1 Capsule before bedtime. 60 Capsule 3 05/11/20 24 Active Respiratory Therapy Supplies Device Use as directed. PleurX catheter, right Active Trelegy Ellipta 100-62.5-25 MCG/ACT Aerosol Powder Breath Activated (Fluticasone-Umec lidinium-Vilanter ol) INHALE 1 PUFF BY MOUTH IN THE MORNING 60 Each 11 07/10/20 24 Active Azithromycin 250 MG Oral Tablet (Zithromax Z-Perry) Please take 500 mg by mouth on day one, followed by 250 mg by mouth for four days. 6 Tablet 07/19/19 25 Active documented as of this encounter (statuses as of 07/27/2024) Active Problems Problem Noted Date Diagnosed Date Chronic combined systolic an d diastolic congestive heart failure 07/24/2024 Ventricular tachycardia, unspecified 07/24/2024 Benign hypertensive heart di sease with congestive heart failure with reduced left ventricular function 12/08/2023 Foraminal stenosis of lumbar region 12/08/2023 Pleural effusion on right 11/29/2023 Ischemic cardiomyopathy 09/28/2023 Status post carotid endarterectomy 07/28/2023 History of radical dissection of right side of n sourav 06/22/2023 History of cerebral infarction 06/22/2023 Overview (12/16/2023): historical Neuropathy 05/17/2023 Infrarenal abdominal aortic aneurysm (AAA) witho ut rupture 11/18/2022 Carotid stenosis, non-symptomatic, bilateral 09/2022 PVD (peripheral vascular disease) 10/07/2022 Pulmonary fibrosis 08/07/2021 Lung nodule 05/30/2021 Overview (05/30/2021): Repeat CT in 12/07 Abdominal aortic ectasia 02/19/2021 Overview (02/19/2021): Recheck 03/10 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 09/19/2020 Essential (primary) hypertension 09/19/2020 S/P angioplasty with stent 03/07/2020 Chronic venous stasis dermatitis 02/09/2018 Dyslipidemia, goal LDL below 70 03/16/2011 Gouty arthropathy 05/02/2009 History of colonic polyps 03/28/2009 Overview (01/11/2013): 01/06/13: normal mucosa, repeat 5 years 03/28/10: hyperplastic tissue, repeat 2 years 03/28/09: one adenoma, one hyperplastic, repeat one year 02/10/08: adenoma, repeat in 1 yr 08/12/07: 30 mm villous adenoma repeat 6 months documented as of this encounter (statuses as of 07/27/2024) Resolved Problems Problem Noted Date Diagnosed Date Resolved Date 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 07/24/2024 Aneurysm of aorta 05/17/2023 12/08/2023 Old myocardial infarction 05/17/2023 Tinea pedis of both feet 11/18/2022 Atherosclerosis of grindstone co ronary artery without angina pectoris 09/15/2022 12/08/2023 Coronary artery disease invo lving coronary bypass graft of grindstone heart 03/07/2020 12/08/2023 Neuropathic foot ulcer, righ t, with fat layer exposed 08/17/2019 02/11/2021 Oral cancer 08/13/2015 08/17/2019 Overview (08/13/2015): 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 documented as of this encounter (statuses as of 07/27/2024) Immunizations Name Administration Dates Next Due COVID-19 mRNA, LNP-s, No Pre serve, 2-Dose Series (Yazino) 05/27/2021,10/10/2020,09/12/2020 Covid-19, Mrna, Lnp-s, Pf, B ivalent, 30 Mcg, IM, 12 yrs and above (Yazino) 06/23/2022 Pneumococcal Conjugate Vacci ne, 20-valent ([id number]) 07/03/2022 Pneumococcal Polysaccharide PPV23 (Pneumovax) 06/17/2021,04/01/2006 RSV Vac., Recomb, Adjuvant, PF,0.5 Ml (Arexvy) 05/12/2024 Seasonal Influenza Vac., MDV , IM, 0.5 mL (Fluzone) 03/26/2014,04/08/2013,04/14/2011,04/30,06/12/2009,05/29/2008,05/05/2007 ,06/15/2006 Seasonal Influenza Virus Vac cine, Unspecified Formulation 04/07/2023,04/08/2022,04/22/2021,04/01,04/10/2019,04/26/2018,04/21/2017 ,04/22/2016,03/26/2014,04/08/2013,03/20,04/30/2010,06/12/2009, 8,05/05/2007,06/15/2006 Seasonal Influenza, High Dos e, Trivalent, PF, IM (Fluzone HD) 04/21/2024 Seasonal Influenza, PF, 6 M & above, IM , (FluLaval or Fluzone) 04/01/2020,04/10/2019,04/26/2018,04/21 Seasonal Influenza, Quadriva lent Hd (Fluzone Hd) 04/21/2024,04/07/2023,04/08/2022,04/22 Seasonal Influenza, Quadriva lent, No Preserve, IM 04/22/2016,05/20/2015 TD, Preservative Free 05/27/2016 TDAP (age 10 and older)(Boostrix) 04/21/2017 TDAP, Age 7 and older, IM (Adacel) 03/05/2006 Varicella Zoster Vaccine (Adult) 07/02/2016 Zoster Vaccine Recombinant (Shingrix) 08/17/2019 ,05/17/2019 documented as of this encounter Social History Tobacco Use Types Packs/Day Years Used Date Smoking Tobacco: Former Cigarettes 1 40 0 08/07/1975 - 08/07/2015 Smokeless Tobacco: Never Alcohol Use Standard Drinks/Week Comments Yes 28 (1 standard drink = 0.6 oz pu re alcohol) 3-4 beer per day AUDIT-C Answer Date Recorded Frequency of Alcohol Consumption Not on file 12/13/2018 Average Number of Drinks 5 or 6 019 Frequency of Binge Drinking Not on file 11/17 PHQ-2 Answer Date Recorded PHQ Adult Total Score 1 06/28/2024 Hunger Vital Sign Answer Date Recorded Within the past 12 months, y ou worried that your food would run out before you got the money to buy more. Never true 06/28/20 24 Within the past 12 months, t he food you bought just didn't last and you didn't have money to get more. Never true 06/28/2024 Childcare Answer Date Recorded Do you feel overwhelmed with taking care of a child, family member or friend? No 06/28/2024 Does your family need help f inding childcare? (Household - for ages 0-17 years) Not on file 06/28/2024 Clothing Answer Date Recorded Have you been unable to get clothing when it was really needed? No 06/28/2024 Is your family able to get c lothes or diapers when needed? (Household - for ages 0-17 years) Not on file 06/28/2024 Personal Safety Answer Date Recorded Do you feel unsafe or have concerns for your saf ety? No 06/28/2024 Do you have concerns for you r family's safety? (Household - for ages 0-17 years) Not on file 06/28/2024 Utilities Answer Date Recorded Do you have trouble paying y our heating, water, or electric bill? No 06/28/2024 Is your family able to pay t he heat, water, or electric bill? (Household - for ages 0-17 years) Not on file 06/28/2024 Does your family have access to good internet? (Household - for ages 0-17 years) Not on file 06/28/2024 Employment Status Answer Date Recorded Are you unemployed or without regular income? No 06/28/2024 Does the household have a re lar source of income? (Household - for ages 0-17 years) Not on file 06/28/2024 Social Connections Answer Date Recorded How often do you feel lonely or isolated from th ose around you? Never 06/28/2024 Financial Resource Strain Answer Date R ecorded Do you have any trouble payi ng for your medications, or do you think you might in the future? No 06/28/2024 Does your family have troubl e paying for medicine? (Household - for ages 0-17 years) Not on file 06/28/2024 Transportation Needs Answer Date Record ed READ ONLY Do you have troubl e getting a ride to medical visits or work? Never True 06/28/2024 Does your family have a hard time getting a ride to doctors visits? (Household - for ages 0-17 years) Not on file 06/28/2024 Has lack of transportation k ept you from medical appointments, meetings, work, or from getting things needed for daily living? Check all that apply. No 06/28/2024 Do you (or your family) have trouble finding or paying for a ride (transportation)? (Household - for ages 0-17 years) Not on file 06/28/2024 Housing Stability Answer Date Recorded Do you currently live in a s helter or have no steady place to sleep at night? No 06/28/2024 READ ONLY Do you think you a re at risk of becoming homeless? No 06/28/2024 Does your family worry about paying for your home or becoming homeless? (Household - for ages 0-17 years) Not on file 1 08/29/2023 Are you homeless or worried that you might be in the future? No 06/28/2024 Are you (or your family) dyana eless or worried that you might be in the future? (Household - for ages 0-17 years) Not on file Food Insecurity Answer Date Recorded Do you need food for this week? No 06/28/2024 Are you able to get enough f ood for your family? (Household - for ages 0-17 years) Not on file 06/28/2024 Does your family need food t his week? (Household - for ages 0-17 years) Not on file 06/28/2024 Do you always have enough fo od for your family? 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 Answer Date of Assessment Author No 07/05/2023 2:58 PM Hilario Spaulding RN * Are you blind or do you have serious difficulty seeing, even when wearing glasses? Answer Date of Assessment Author No 07/05/2023 2:58 PM Hilario Spaulding RN * Do you have serious difficulty walking or climbing stairs? (5 years old or older) Answer Date of Assessment Author No 07/05/2023 2:58 PM Hilario Spaulding RN * Do you have difficulty dressing or bathing? (5 years old or older) Answer Date of Assessment Author No 07/05/2023 2:58 PM Hilario Spaulding RN * Because of a physical, mental, or emotional condition, do you have difficulty doing errands alone such as visiting a doctors office or shopping? (15 years old or older) Answer Date of Assessment Author No 07/05/2023 2:58 PM Hilario Spaulding RN documented as of this encounter Mental Status * Because of a physical, mental, or emotional condition, do you have serious difficulty concentrating, remembering, or making decisions? (5 years old or older) Answer Entry Date Author No 07/05/2023 2:58 PM Hilario Spaulding RN documented in this encounter Miscellaneous Notes * Telephone Encounter - Cindy Adams LPN - 07/27/2024 10:23 AM EST Patient reports 80% improvement for the first 5days then pain returned to baseline, currently worsethan baseline. Low back pain, right leg in thigh Worse with walking Has appt with Viky end of month-(he asked us to do this inj) * Telephone Encounter - Cindy Adams LPN - 07/27/2024 9:16 AM EST L5 transforaminal epidural steroid injections, bilateral on 06/22/24 Left message for patient to return call documented in this encounter Plan of Treatment Upcoming Encounters Date Type Department Care Team (Late st Contact Info) Description 08/15/2024 1:00 PM EST Nurse Only Ancillary [facility] Nitish Mendez [address] [place] [address] [place] Nurse Annual Wellness [facility] [address] [facility] [place] [address] 08/16/2024 12:40 PM EST Office Visit Pulmonary Medicine, [facility] [address] [facility] [place] [address] Dom Grossman MD [address] [place] [address] 09/28/2024 10:00 AM EDT Office Visit Cardiology, [facility] [address] [facility] [place] [address] Karie Swanson, ERENDIRA [address] [facility] [place] [address] 12/01/2024 1:30 PM EDT Office Visit Cardiology, [facility] [address] [facility] [place] [address] Cindy Monte, AMANDA [address] [facility] [place] [address] 01/29/2025 3:45 PM EDT Office Visit Ophthalmology, [place] [address] [address] Abilio Hensley DO [address] [place] [address] 02/14/2025 1:00 PM EDT Office Visit Family Practice [facility] [address] [place] [address] Rohan Mckenzie, DO [address] [place] [address] 08/16/2025 3:00 PM EST Nurse Only Ancillary [facility] [address] [place] [address] [place], Nurse Annual Wellness [facility] [address] [place], [place] [address] Scheduled Procedures Name Priority Associated Diagnoses Date/Ti me COLONOSCOPY FLEXIBLE PROXIMAL DIAGNOSTIC Recall History of colon polyps Health Maintenance Due Date Last Done Comments Cologuard 2000 Fecal Occult Blood Test 2000 Sigmoidoscopy 2000 Colonoscopy 01/12/2023 01/12/2018, 12/18, 01/06/2013, Additional history exists Colorectal Cancer Screening 01/12/2023 COVID-19 Vaccine ( season) 2024 06/23/2022, 05/27/2021, 10/10/2020, Additional history exists Adult Wellness Visit 08/11/2024 08/11/2023 Depression Screening 06/28/2025 06/28/2024 GFR 07/07/2025 07/07/2024, 05/20, 02/23/2024, Additional history exists Albumin/Creatinine Ratio 10/23/2025 10/23/2022 Diabetes Screening 02/22/2027 02/23/2024, 0 01/26/2024, 01/19/2024, Additional history exists DTap/Tdap Vaccines (4 - Td or Tdap) 04/21/2027 04/21/2017, 05/27/2016, 03/05/2006 RETIRED - COLONOSCOPY-EVERY 5 YRS AGES 18-100 Discontinued 01/12/2018, 01/12/2018, 01/17/2013, Additional history exists Zoster Vaccines Completed 08/17/2019, 04/20, 07/02/2016 Pneumococcal Vaccine: 50+ Years Completed 07/03/2022, 06/17/2021, 04/01/2006 Influenza Vaccine (FLU shot) Completed 04/21/2024, 04/21/2024, 04/07/2023, Additional history exists HPV (Gardasil) Vaccine Aged Out No lo nger eligible based on patient's age to complete this topic Hepatitis B Vaccine Aged Out No longe r eligible based on patient's age to complete this topic MENINGOCOCCAL (MENACTRA/MENVEO) Aged Out No longer eligible based on patient's age to complete this topic documented as of this encounter Medical Devices Implanted Type Area Emergency Telecommunications Dispatcher Device Identifier Shelf Expiration Date Model / Serial / Lot Lens 17.5 Sn60wf - [id number] Implanted:Qty : 1 on 06/27/2014 by Rich Brooks MD at OR [facility] Right: Eye [employer] 03/18/2019 SN60WF.17 5 / [id number] / Lens 18.0 Sn60wf - [id number] - [id number] Implanted:Qty : 1 on 07/22/2022 by Abilio Hensley DO at OR [facility] Left: Eye MIRIAN : SURGICAL 11/16/2023 SN60WF.1 8 0 / [id number] / Patch Xenosure [id number] - [id number] Implanted:Qty : 1 on 12/24/2022 by Jean Garcia MD [place] [facility] Left: Femoral Artery [employer] [id number] 08/15/2028 E0.8P8 / [id number] / [id number] Patch Xenosure [id number] - [id number] - [id number] Implanted:Qty : 1 on 07/05/2023 by Jean Garcia MD [place] [facility] Left: Carotid [employer] [id number] 01/13/2029 E0.8P8 / [id number] / [id number] documented as of this encounter Advance Directives * Full Code (Latest Code Status on File) Date Activated Date Inactivated Comments 07/05/2023 11:00 AM 07/06/2023 3:20 PM This orde r reflects the patients wishes and were consensually agreed upon. Question Answer Comments Discussion of Advance Direct diana occurred with: Not Discussed due to patient's condition Does the patient have a Living Will? No Does the patient have Health Care Power of Mechanical Design Technician? No * Full Code Date Activated Date Inactivated Comments 12/24/2022 10:48 AM 12/25/2022 3:42 PM This order re flects the patients wishes and were consensually agreed upon. Question Answer Comments Discussion of Advance Direct diana occurred with: Not Discussed due to patient's condition * Full Code Date Activated Date Inactivated Comments 07/22/2022 7:52 AM 07/22/2022 2:06 PM Question Answer Comments Discussion of Advance Direct diana occurred with: Not Discussed due to patient's condition * Full Code Date Activated Date Inactivated Comments 08/09/2015 4:33 PM 08/13/2015 2:44 PM This order r eflects the patients wishes and were consensually agreed upon. Question Answer Comments Discussion of Advance Directives occurred with: Not Discussed * Full Code Date Activated Date Inactivated Comments 06/27/2014 8:16 AM 06/27/2014 4:20 PM This order reflects the patients wishes and were consensually agreed upon. Healthcare Agents on File Name Relationship Healthcare Agent Relationshi p Communication Noelle Morgan Spouse Health Care Agen t (per Health Care Power of Mechanical Design Technician document) Care Teams Jewelry Appraiser Relationship Specialty Start Date End Date Rohan Mckenzie DO [address] [facility] [place] [address] PCP - General Family Medicine 05/27/16 documented as of this encounter
--- OUTSIDE RECORDS SUMMARY | 2024-08-04 01:31 | External Medical Summary | Summary of Care ---
Author Name Unknown Organization [facility] Address [address] [facility] [place] [address] Phone [phone] Care Team Providers Care Nurse Transitional Name Role Phone Rohan Mckenzie DO Primary Care Provider [phone] Encounter Details Date Type Department Care Team (Late st Contact Info) Description 07/20/2024 Population Health External Data Unspecified Department Allergies Active Allergy Reactions Criticality Noted Date Comments Spironolactone Other (Please comment) Medium 4 Undesired breast changes/pain documented as of this encounter (statuses as of 07/25/2024) Medications B Complex Vitamins (B COMPLEX 50) [...] 24 Active Additional Information Patient taking differently: [id number], Reported on 07/17/2024 Albuterol Sulfate HFA 108 (90 Base) MCG/ACT Inhalation Aerosol SolutionIndicatio ns:Pulmonary fibrosis (HCC),Lung nodule,PVD (peripheral vascular disease) (HCC) TAKE 2 PUFFS BY MOUTH EVERY 6 HOURS NEEDED FOR WHEEZE 18 g 3 09/13/19 24 Active Eplerenone 25 MG Oral Tablet (Inspra)Indicatio ns:Ischemic cardiomyopathy,Ac lumbee systolic congestive heart failure, NYHA class 1 [...] as of this encounter (statuses as of 07/25/2024) Active Problems Problem Noted Date Diagnosed Date [...] artery disease of n ative artery of [place] heart with stable angina pectoris 09/19/2020 Essential [...] as of this encounter (statuses as of 07/25/2024) Resolved Problems Problem Noted Date Diagnosed Date Resolved Date 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 [address] [place] [address] [place], Nurse Annual Wellness Scenery [address] [place] [address] 08/16/2024 12:40 PM EST Office Visit Pulmonary Medicine, [facility] [address] [facility] [place] [address] Dom Grossman MD [address] [place] [address] 09/28/2024 10:00 AM EDT Office Visit Cardiology, [facility] [address] [place] [address] Karie Swanson PA-C [address] [place] [address] 12/01/2024 1:30 PM EDT Office Visit Cardiology, [facility] [address] [facility] [place] [address] Cindy Monte CRNP [address] [facility] [place] [address] 01/29/2025 3:45 PM EDT Office Visit Ophthalmology, [place] [address] [place] [address] Abilio Hensley, [address] [place] [address] 02/14/2025 1:00 PM EDT Office Visit Family Practice [facility] [place] [address] [place] [address] Rohan Mckenzie, DO [address] [facility] [place] [address] 08/16/2025 3:00 PM EST Nurse Only Ancillary [facility] [place] [address] [place] [address] [place], Nurse Annual Wellness [facility] [address] [facility] [place] [address] Scheduled Procedures Name Priority Associated Diagnoses Date/Ti [...] this encounter Medical Devices Implanted Type Area Car Seat Coverer Device Identifier Shelf Expiration Date Model / Serial / Lot Lens 17.5 Sn60wf - [id number] Implanted:Qty : 1 on 06/27/2014 by Rich Brooks MD at OR [facility] Right: Eye [employer] 03/18/2019 SN60WF.17 5 / [id number] / Lens 18.0 Sn60wf - [id number] - [id number] Implanted:Qty : 1 on 07/22/2022 by Abilio Hensley DO at OR [facility] Left: Eye MIRIAN : SURGICAL 11/16/2023 SN60WF.1 8 0 / [id number] / Patch Xenosure [id number] - [id number] Implanted:Qty : 1 on 12/24/2022 by Jean Garcia MD at OR [facility] Left: Femoral Artery [employer] [id number] 08/15/2028 E0.8P8 / [id number] / [id number] Patch Xenosure [id number] - [id number] - [id number] Implanted:Qty : 1 on 07/05/2023 by Jean Garcia MD at [facility] Left: Carotid [employer] [id number] 01/13/2029 E0.8P8 / [id number] / [id number] documented as of this encounter Advance Directives [...] the patient have Health Care Power of Benzene Still Utility Operator? No * Full Code Date Activated Date [...] Relationship Healthcare Agent Relationshi p Communication Noelle Eddie Spouse Health Care Agen t (per Health Care Power of Benzene Still Utility Operator document) Care Teams Nurse Transitional Relationship Specialty Start Date End Date Rohan Mckenzie DO [address] [facility] [place] [address] PCP - General Family Medicine 11/9/16 documented as of this encounter
--- OUTSIDE RECORDS SUMMARY | 2024-08-04 01:31 | External Medical Summary | Summary of Care ---
Author Name Unknown Organization [facility] Address [address] [facility] [place] [address] Phone [phone] Care Team Providers Care Human Resources Specialist Name Role Phone Rohan Mckenzie DO Primary Care Provider [phone] Encounter Details Date Type Department Care Team (Late st Contact Info) Description 08/01/2024 Population Health External Data Unspecified Department Allergies Active Allergy Reactions Criticality Noted Date Comments Spironolactone Other (Please comment) Medium 4 Undesired breast changes/pain documented as of this encounter (statuses as of 08/02/2024) Medications B Complex Vitamins (B COMPLEX 50) [...] 24 Active Additional Information Patient taking differently: [id number], Reported on 07/17/2024 Albuterol Sulfate HFA 108 (90 Base) MCG/ACT Inhalation Aerosol SolutionIndicatio ns:Pulmonary fibrosis (HCC),Lung nodule,PVD (peripheral vascular disease) (HCC) TAKE 2 PUFFS BY MOUTH EVERY 6 HOURS NEEDED FOR WHEEZE 18 g 3 09/13/19 24 Active Eplerenone 25 MG Oral Tablet (Inspra)Indicatio ns:Ischemic cardiomyopathy,Ac helga systolic congestive heart failure, NYHA class 1 [...] four days. 6 Tablet 07/19/19 25 Active Doxycycline Hyclate 100 MG Oral Capsule Take 1 Capsule by mouth in the morning and 1 Capsule before bedtime. Do all this for 10 days. Until gone.. 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 documented as of this encounter (statuses as of 08/02/2024) Immunizations Name Administration Dates Next Due COVID-19 mRNA, LNP-s, No Pre serve, 2-Dose Series ([facility]) 05/27/2021,10/10/2020,09/12/2020 Covid-19, Mrna, Lnp-s, Pf, B ivalent, 30 Mcg, IM, 12 yrs and above ([facility]) 06/23/2022 Pneumococcal Conjugate Vacci ne, 20-valent ([id number]) 07/03/2022 Pneumococcal Polysaccharide PPV23 (Pneumovax) 06/17/2021,04/01/2006 RSV [...] No 06/28/2024 Does the household have a [facility] source of income? 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 file [...] Care Team (Late st Contact Info) Description 08/08/2024 1:00 PM EST Office Visit Pulmonary Medicine, [facility] [address] [facility] [place] [address] Dom Gross[facility] [address] [facility] [address] 08/15/2024 1:00 PM EST Nurse Only Ancillary [facility] [address] [place] [address] [place], Nurse Annual Wellness [facility] [address] [facility] [place] [address] 09/28/2024 10:00 AM EDT Office Visit Cardiology, [facility] [address] [place] [address] Karie Swanson PA-C [address] [place] [address] 12/01/2024 1:30 PM EDT Office Visit Cardiology, [facility] [address] [place] [address] Cindy Monte CRNP [address] [place] [address] 01/29/2025 3:45 PM EDT Office Visit Ophthalmology, [address] [place] [address] Abilio Hensley, DO [address] [place] [address] 02/14/2025 1:00 PM EDT Office Visit Family Practice [facility] [place] [address] [facility] [place] [address] Rohan Mckenzie, DO [address] [facility] [place] [address] 08/16/2025 3:00 PM EST Nurse Only Ancillary [facility] [place] [address] [facility] [place] [address] [place], Nurse Annual Wellness [facility] [address] [facility] [place] [address] Scheduled Procedures Name Priority Associated Diagnoses Date/Ti [...] this encounter Medical Devices Implanted Type Area Hvac Sheet Metal Installer Helper Device Identifier Shelf Expiration Date Model / Serial / Lot Lens 17.5 Sn60wf - [id number] Implanted:Qty : 1 on 06/27/2014 by Rich Brooks MD at OR [facility] Right: Eye [employer] 03/18/2019 SN60WF.17 5 / [id number] / Lens 18.0 Sn60wf - [id number] - [id number] Implanted:Qty : 1 on 07/22/2022 by Abilio Hensley DO at OR [facility] Left: Eye MIRIAN : SURGICAL 11/16/2023 SN60WF.1 8 0 / [id number] / Patch Xenosure [id number] - [id number] Implanted:Qty : 1 on 12/24/2022 by Jean Garcia MD at [place] [facility] Left: Femoral Artery [employer] [id number] 08/15/2028 E0.8P8 / [id number] / [id number] Patch Xenosure [id number] - [id number] - [id number] Implanted:Qty : 1 on 07/05/2023 by Jean Garcia MD at [place] [facility] Left: Carotid [employer] [id number] 01/13/2029 E0.8P8 / [id number] / [id number] documented as of this encounter Advance Directives [...] the patient have Health Care Power of Film Maker? No * Full Code Date Activated Date [...] Agen t (per Health Care Power of Film Maker document) Care Teams Human Resources Specialist Relationship Specialty Start Date End Date Rohan Mckenzie DO [address] [place] [place], [place] [address] PCP - General Family Medicine 05/27/16 documented as of this encounter
--- OUTSIDE RECORDS SUMMARY | 2024-08-04 01:31 | External Medical Summary | Summary of Care ---
Author Name Unknown Organization [facility] Address [address] [place] [address] Phone [phone] Care Team Providers Care Inspector Rag Sorting Name Role Phone Rohan Mckenzie DO Primary Care Provider [phone] Reason for Visit * Reason Comments Follow Up Pt is here for follo w up and no new concerns also stated he recently got his cath removed from back about 2 weeks ago.. Encounter Details Date Type Department Care Team (Late st Contact Info) Description 07/17/2024 12:40 PM EST Office Visit Family Practice [facility] [address] [facility] [address] [place] [address] Rohan Mckenzie DO [address] [place] [id number] S/P ICD (internal cardiac defibrillator) procedure*; Elevated prostate specific antigen (PSA); Dyslipidemia, goal LDL below 70; Coronary artery disease of [place] artery of [place] heart with stable angina pectoris (HCC); Essential (primary) hypertension; Benign hypertensive heart disease with congestive heart failure with reduced left ventricular function (HCC); Chronic combined systolic and diastolic congestive heart failure (HCC); Ventricular tachycardia, unspecified (HCC); Ischemic cardiomyopathy; Dyslipidemia, goal LDL below 100 Allergies Active Allergy Reactions Criticality Noted Date Comments Spironolactone Other (Please comment) Medium 4 Undesired breast changes/pain documented as of this encounter (statuses as of 07/24/2024) Medications B Complex Vitamins (B COMPLEX 50) TABS Take 1 Tablet by mouth in the morning. Active Misc. Devices MISC Custom molded extra depth shoes with accommodative inserts - Offloading of right 4th metatarsal head Dx: neuropathic ulceration right foot 1 Each 019 Active nitroglycerin (NITROSTAT) 0.[address] 1 Tablet under the tongue every 5 minutes as needed. Active Econazole Nitrate 1 % External Cream (Spectazole)Natalie cations:History of tinea pedis,Onychomyco sis Apply to feet (on nails and in between toes) 2x weekly as maintenance for tinea pedis 85 g 3 023 Active PreserVision AREDS Oral Capsule Take 1 Capsule by mouth in the morning and 1 Capsule before bedtime. Active Furosemide 40 MG Oral Tablet (Lasix) Take 1 Tablet by mouth in the morning. And as directed for edema, weight gain. 110 Tablet 3 023 Active Allopurinol 300 MG Oral Tablet (Zyloprim)Indica tions:Gouty arthropathy TAKE 1 TABLET BY MOUTH EVERY DAY 90 Tablet 3 024 Active Additional Information Patient taking differently: [id number], Reported on 07/17/2024 Albuterol Sulfate HFA 108 (90 Base) MCG/ACT Inhalation Aerosol SolutionIndicati ons:Pulmonary fibrosis (HCC),Lung nodule,PVD (peripheral vascular disease) (HCC) TAKE 2 PUFFS BY MOUTH EVERY 6 HOURS NEEDED FOR WHEEZE 18 g 3 024 Active Eplerenone 25 MG Oral Tablet (Inspra)Indicati ons:Ischemic cardiomyopathy,A cute systolic congestive heart failure, NYHA class 1 (HCC) Take 1 Tablet by mouth in the morning. 90 Tablet 3 024 Active Ezetimibe 10 MG Oral Tablet (Zetia)Indicatio ns:High triglycerides TAKE 1 TABLET BY MOUTH EVERY DAY IN THE MORNING 90 Tablet 3 024 Active Aspirin Low Dose 81 MG Oral Tablet Delayed Release (aspirin enteric coated)Indicatio ns:High triglycerides TAKE 1 TABLET BY MOUTH EVERY DAY IN THE MORNING 90 Tablet 3 024 Active Acetaminophen 325 MG Oral Tablet (Tylenol) Take 3 Tablets by mouth daily as needed. Active Sacubitril-Valsa rtan 97-103 MG Oral Tablet (Entresto) Take 1 Tablet by mouth in the morning and 1 Tablet before bedtime. 180 Tablet 1 024 Active Metoprolol Succinate ER 25 MG Oral Tablet Extended Release 24 Hour (toPROL XL)Indications:D yslipidemia, goal LDL below 100,Essential (primary) hypertension,Old myocardial infarction Take 1 Tablet by mouth in the morning and 1 Tablet before bedtime. Take with 50 mg tablet to equal 75 mg twice daily. 180 Tablet 3 024 Active Metoprolol Succinate ER 50 MG Oral Tablet Extended Release 24 Hour (toPROL XL)Indications:D yslipidemia, goal LDL below 100,Essential (primary) hypertension,Old myocardial infarction Take 1 Tablet by mouth in the morning and 1 Tablet before bedtime. 180 Tablet 3 024 Active Rosuvastatin Calcium 10 MG Oral Tablet (Crestor) Take 1 Tablet by mouth in the morning. 90 Tablet 3 024 Active Amiodarone HCl 200 MG Oral Tablet (Cordarone) Take 1 Tablet by mouth in the morning. 90 Tablet 3 024 Active Clopidogrel Bisulfate 75 MG Oral Tablet (pLAVix) TAKE 1 TABLET BY MOUTH EVERY DAY IN THE MORNING 90 Tablet 3 024 Active Gabapentin 300 MG Oral Capsule (Neurontin)Indic ations:Spinal stenosis of lumbar region with neurogenic claudication,Spo ndylosis of lumbar region without myelopathy or radiculopathy Take 1 Capsule by mouth in the morning and 1 Capsule before bedtime. 60 Capsule 3 024 Active Respiratory Therapy Supplies Device Use as directed. PleurX catheter, right Active Trelegy Ellipta 100-62.5-25 MCG/ACT Aerosol Powder Breath Activated (Fluticasone-Ume clidinium-Vilant martinez) INHALE 1 PUFF BY MOUTH IN THE MORNING 60 Each 11 024 Active HYDROcodone-Acet aminophen 5-325 MG Oral TabletIndication s:Foraminal stenosis of lumbar region Take 1 Tablet by mouth every 6 hours as needed for Pain, Moderate. 20 Tablet 024 2023 Discontinued Azithromycin 250 MG Oral Tablet (Zithromax Z-Perry) Please take 500 mg by mouth on day one, followed by 250 mg by mouth for four days. 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 07/24/2024 Aneurysm of aorta 05/17/2023 12/08/2023 Old myocardial infarction 05/17/2023 Tinea pedis of both feet 11/18/2022 Atherosclerosis of [place] co ronary artery without angina pectoris 09/15/2022 12/08/2023 Coronary artery disease invo lving coronary bypass graft of point [place] heart 03/07/2020 12/08/2023 Neuropathic foot ulcer, righ [...] DIS NOS 07/05/2002 hypercholesterol 07/05/2002 12/08/2023 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 documented as of this encounter (statuses as of 07/24/2024) Immunizations Name Administration Dates Next Due COVID-19 mRNA, LNP-s, No Pre serve, 2-Dose Series (Pfizer) 05/27/2021,10/10/2020,09/12/2020 Covid-19, Mrna, Lnp-s, Pf, B ivalent, 30 Mcg, IM, 12 yrs and above (Pfizer) 06/23/2022 Pneumococcal Conjugate Vacci ne, 20-valent (Afalivt75) 07/03/2022 Pneumococcal Polysaccharide PPV23 (Pneumovax) 06/17/2021,04/01/2006 RSV [...] 0 08/07/1975 - 08/07/2015 Smokeless Tobacco: Never Tobacco Cessation:Counseling Given: Not Answered Alcohol Use Standard Drinks/Week Comments Yes 28 [...] 06/28/2024 Does the household have a re gular source of income? 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 file Not on file Not on file Retired Not on file Not on file Not on file documented as of this encounter Last Filed Vital Signs Vital Sign Reading Time Taken Comments Blood Pressure 122/58 07/17/2024 12:54 PM EST Pulse 61 07/17/2024 12:54 PM EST Temperature 36.7 C (98.1 F) 07/17/2024 1 2:54 PM EST Respiratory Rate - - Oxygen Saturation 92% 07/17/2024 12: 54 PM EST Inhaled Oxygen Concentration - - Weight 113.8 kg (250 lb 14.4 oz) 2023 12:54 PM EST Height 188 cm (6' 2") 07/17/2024 12:54 PM EST Body Mass Index 32.21 07/17/2024 12:54 PM EST documented in this encounter Functional Status * Are you [...] Hilario Spaulding RN documented in this encounter Progress Notes * Rohan Mckenzie, DO - 07/17/2024 1:01 PM EST Subjective: Brandan Morgan is a 68 year old male. Chief Complaint Patient presents with Follow Up Pt is here for follow up and no new concerns also stated he recently got his cath removed from backabout 2 weeks ago.. HPI: Pt here for follow-up. Episode in [place] with non-sustained VT. He has had an ICD placed since then. They pulled his PleurX catheter. We discussed potential causes of the fluid. There is no sign of cancer as of yet. There is another CXR in [address] Salmon and they are considering surgery for his back. Will plan towards colonoscopy when he can again. He got the RSV shot. 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 Misc. Devices MISC Custom molded extra depth shoes with accommodative inserts - Offloading of [id number] metatarsal head Dx: neuropathic ulceration right foot 1 Each 0 nitroglycerin (NITROSTAT) 0.[address] 1 Tablet under the tongue every 5 minutes as needed. Econazole Nitrate 1 % External Cream (Spectazole) Apply to feet (on nails and in between toes) 2x weekly as maintenance for tinea pedis 85 g 3 PreserVision AREDS Oral Capsule Take 1 Capsule by mouth in the morning and 1 Capsule before bedtime. Furosemide 40 MG Oral Tablet (Lasix) Take 1 Tablet by mouth in the morning. And as directed for edema, weight gain. 110 Tablet 3 Allopurinol 300 MG Oral Tablet (Zyloprim) TAKE 1 TABLET BY MOUTH EVERY DAY (Patient taking differently: every evening.) 90 Tablet 3 Albuterol Sulfate HFA 108 (90 Base) MCG/ACT Inhalation Aerosol Solution TAKE 2 PUFFS BY MOUTH EVERY6 HOURS NEEDED FOR WHEEZE 18 g 3 Eplerenone 25 MG Oral Tablet (Inspra) Take 1 Tablet by mouth in the morning. 90 Tablet 3 Ezetimibe 10 MG Oral Tablet (Zetia) TAKE 1 TABLET BY MOUTH EVERY DAY IN THE MORNING 90 Tablet 3 Aspirin Low Dose 81 MG Oral Tablet Delayed Release (aspirin enteric coated) TAKE 1 TABLET BY MOUTH EVERY DAY IN THE MORNING 90 Tablet 3 Acetaminophen 325 MG Oral Tablet (Tylenol) Take 3 Tablets by mouth daily as needed. Sacubitril-Valsartan 97-103 MG Oral Tablet (Entresto) Take 1 Tablet by mouth in the morning and 1 Tablet before bedtime. 180 Tablet 1 Metoprolol Succinate ER 25 MG Oral Tablet Extended Release 24 Hour (toPROL XL) Take 1 Tablet by mouth in the morning and 1 Tablet before bedtime. Take with 50 mg tablet to equal 75 mg twice daily. 180 Tablet 3 Metoprolol Succinate ER 50 MG Oral Tablet Extended Release 24 Hour (toPROL XL) Take 1 Tablet by mouth in the morning and 1 Tablet before bedtime. 180 Tablet 3 Rosuvastatin Calcium 10 MG Oral Tablet (Crestor) Take 1 Tablet by mouth in the morning. 90 Tablet 3 Amiodarone HCl 200 MG Oral Tablet (Cordarone) Take 1 Tablet by mouth in the morning. 90 Tablet 3 Clopidogrel Bisulfate 75 MG Oral Tablet (pLAVix) TAKE 1 TABLET BY MOUTH EVERY DAY IN THE MORNING 90Tablet 3 Gabapentin 300 MG Oral Capsule (Neurontin) Take 1 Capsule by mouth in the morning and 1 Capsule before bedtime. 60 Capsule 3 Respiratory Therapy Supplies Device Use as directed. PleurX catheter, right Azithromycin 250 MG Oral Tablet (Zithromax Z-Perry) Please take 500 mg by mouth on day one, followed by 250 mg by mouth for four days. 6 Tablet 0 Trelegy Ellipta 100-62.5-25 MCG/ACT Aerosol Powder Breath Activated (Rujkwuwotov-Vohjmapvpsgt-Kxvkhlhcwt) INHALE 1 PUFF BY MOUTH IN THE MORNING 60 Each 11 Arexvy 120 MCG/0.5ML Intramuscular Suspension Reconstituted (RSV PreF3 Vac Recomb Adjuvanted) Inject into a large muscle. 1 Each 0 No current facility-administered medications for this visit. Review of patient's allergies indicates: Allergen Reactions Spironolactone Other (Please comment) Undesired breast changes/pain OBJECTIVE: BP 122/58 (BP Site: Left Arm, BP Position: Sitting, BP Cuff Size: Regular) | Pulse 61 | Temp 98.1 F (36.7 C) (Tympanic) | Ht 6' 2" (1.88 m) | Wt 250 lb 14.4 oz (113.8 kg) | SpO2 92% | BMI 32.21 kg/m | BSA 2.44 m Estimated body mass index is 32.21 kg/m as calculated from the following: Height as of this encounter: 6' 2" (1.88 m). Weight as of this encounter: 250 lb 14.4 oz (113.8 kg). BP Readings from Last 3 Encounters: 07/17/24 122/58 07/03/24 128/68 06/22/24 125/87 Wt Readings from Last 3 Encounters: 07/17/24 250 lb 14.4 oz (113.8 kg) 07/03/24 250 lb 8 oz (113.6 kg) 06/22/24 247 lb (112 kg) ROS: Negative except for above PHYSICAL EXAM: General: alert, healthy, and no distress Head: Normocephalic, No masses, lesions, tenderness or abnormalities Heart: regular rate & rhythm, no murmur, and no gallops Lungs: chest symmetric with normal AP diameter, no chest deformities noted, no chest wall tenderness, lungs clear to auscultation ASSESSMENT/Plan S/P ICD (internal cardiac defibrillator) procedure (Primary) Elevated prostate specific antigen (PSA) - PSA; Future; Expected date: 10/15/2024 Dyslipidemia, goal LDL below 70 Coronary artery disease of [place] artery of [place] heart with stable angina pectoris (HCC) Essential (primary) hypertension 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 Pt seen with CM. I'm glad that his chest tube is out but still concerned that his effusion could return. The above was discussed and understanding was expressed. Rohan Mckenzie DO documented in this encounter Nursing Notes * Tony Lema CMA - 07/17/2024 12:56 PM EST The patient has been properly identified by confirmation of name and date of . Chief Complaint Patient presents with Follow Up Pt is here for follow up and no new concerns also stated he recently got his cath removed from backabout 2 weeks ago.. documented in this encounter Plan of Treatment Upcoming Encounters Date Type Department Care Team (Late st Contact Info) Description 07/27/2024 2:00 PM EST Scheduled Telephone Interventional Pain Center, [facility] [address] [facility] [place] [address] Nurse Rachid Phone Call Interventional Pain [address] [place] [address] 08/15/2024 1:00 PM EST Nurse Only Ancillary [facility] [address] [place] [phone] Vanessa Nurse Annual Wellness [facility] [address] [facility] [place] [address] 08/16/2024 12:40 PM EST Office Visit Pulmonary Medicine, [facility] [address] [facility] [place] [address] Dom Grossman MD [address] [facility] [address] 09/28/2024 10:00 AM EDT Office Visit Cardiology, [facility] [address] [facility] [place], [place] [address] Karie Swanson PA-C [address] [facility] [place] [address] 12/01/2024 1:30 PM EDT Office Visit Cardiology, [facility] [address] [facility] [place] [address] Cindy Monte CRNP [address] [facility] [place] [address] 01/29/2025 3:45 PM EDT Office Visit Ophthalmology, [place] [address] [address] Ab[facility]ens[facility] DO [facility] [address] 02/14/2025 1:00 PM EDT Office Visit Family Practice [facility] [address] [facility] [place] [address] Rohan Mckenzie, DO [address] [facility] [place] [address] 08/16/2025 3:00 PM EST Nurse Only Ancillary [facility] [address] [facility] [place] [address] Vanessa Nurse Annual Wellness [address] [place] [address] Scheduled Orders Name Type Priority Associated Diagnoses Orde r Schedule PSA Lab Routine Elevated prostate specific antigen (PSA) Expected: 10/15/2024 (Approximate), Expires: 07/17/2025 Scheduled Procedures Name Priority Associated Diagnoses Date/Ti [...] this encounter Medical Devices Implanted Type Area Vp Cardiovascular Service Line Device Identifier Shelf Expiration Date Model / Serial / Lot Lens 17.5 Sn60wf - [id number] Implanted:Qty : 1 on 06/27/2014 by Rich Brooks MD at OR [facility] Right: Eye [employer] 03/18/2019 SN60WF.17 5 / [id number] / Lens 18.0 Sn60wf - [id number] - [id number] Implanted:Qty : 1 on 07/22/2022 by Abilio Hensley DO at OR [facility] Left: Eye MIRIAN : SURGICAL 11/16/2023 SN60WF.1 8 0 / [id number] / Patch Xenosure 0.6vmr6tw - [id number] Implanted:Qty : 1 on 12/24/2022 by Jean Garcia MD at OR [facility] [place] Left: Femoral Artery [employer] [id number] 08/15/2028 E0.8P8 / [id number] / [id number] Patch Xenosure [id number] - [id number] - [id number] Implanted:Qty : 1 on 07/05/2023 by Jean Garcia MD at OR [facility] [place] Left: Carotid [employer] [id number] 01/13/2029 E0.8P8 / [id number] / [id number] documented as of this encounter Visit Diagnoses Diagnosis S/P ICD (internal cardiac defibrillator) procedure- Primary Automatic implantable cardiac defibrillator in situ Elevated prostate specific antigen (PSA) Dyslipidemia, goal LDL below 70 Other and unspecified hyperlipidemia Coronary artery disease of [place] artery of [place] heart with stable angina pectoris (HCC) Essential (primary) hypertension Unspecified essential hypertension 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 No * Full Code Date Activated Date [...] Agen t (per Health Care Power of Em Physician document) Care Teams Inspector Rag Sorting Relationship Specialty Start Date End Date Rohan Mckenzie DO [address] [place] [address] PCP - General Family Medicine 05/27/16 documented as of this encounter
--- OUTSIDE RECORDS SUMMARY | 2024-08-04 01:31 | External Medical Summary | Summary of Care ---
Author Name Unknown Organization [facility] Address [address] [place] [address] Phone [phone] Care Team Providers Care Pole Climber Name Role Phone JonahRohan Brittney CESPEDES Primary Care Provider [phone] Reason for Visit * Reason Onset Date Comments Test Results 07/27/2024 Chest x-ray Encounter Details Date Type Department Care Team (Late st Contact Info) Description 07/27/2024 Telephone Thoracic Surg [facility] [address] [place], [place] [id number] Corinne Orellana PA-C [address] [place] [address] Test Results (Chest x-ray) Allergies Active Allergy Reactions Criticality Noted Date Comments Spironolactone Other (Please comment) Medium 4 Undesired breast changes/pain documented as of this encounter (statuses as of 07/28/2024) Medications B Complex Vitamins (B COMPLEX 50) [...] 24 Active Additional Information Patient taking differently: [id number], Reported on 07/17/2024 Albuterol Sulfate HFA 108 (90 Base) MCG/ACT Inhalation Aerosol SolutionIndicatio ns:Pulmonary fibrosis (HCC),Lung nodule,PVD (peripheral vascular disease) (HCC) TAKE 2 PUFFS BY MOUTH EVERY 6 HOURS NEEDED FOR WHEEZE 18 g 3 09/13/19 24 Active Eplerenone 25 MG Oral Tablet (Inspra)Indicatio ns:Ischemic cardiomyopathy,Ac alutiiq systolic congestive heart failure, NYHA class 1 [...] as of this encounter (statuses as of 07/28/2024) Active Problems Problem Noted Date Diagnosed Date [...] artery disease of n ative artery of [place] heart with stable angina pectoris 09/19/2020 Essential [...] as of this encounter (statuses as of 07/28/2024) Resolved Problems Problem Noted Date Diagnosed Date Resolved Date 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 documented as of this encounter (statuses as of 07/28/2024) Immunizations Name Administration Dates Next Due COVID-19 mRNA, LNP-s, No Pre serve, 2-Dose Series ([employer]) 05/27/2021,10/10/2020,09/12/2020 Covid-19, Mrna, Lnp-s, Pf, B ivalent, 30 Mcg, IM, 12 yrs and above ([employer]) 06/23/2022 Pneumococcal Conjugate Vacci ne, 20-valent ([id number]) 07/03/2022 Pneumococcal Polysaccharide PPV23 (Pneumovax) 06/17/2021,04/01/2006 RSV [...] No 06/28/2024 Does the household have a [facility] source of income? 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 Completed Azithromycin and was prescribed Doxycycline for continued cough. He denies fever/chills. Reviewed CXR. Shows stable right pleural effusion s/p PleurX removal. Leaves for [employer] on the of this month. We agreed to repeat a CXR prior to his vacation.He will get a CXR 1/27 AM and I will call him to discuss. Corinne Orellana PA-C * Telephone Encounter - Angelito Aragon OSA - 07/27/2024 4:27 PM EST Corinne/ Brandan Franklin just called to let you know that he just got his xray done this afternoon around 2:30 pm. Angelito Aragon 07/27/2024,4:28 PM documented in this encounter Plan of Treatment Upcoming Encounters Date Type Department Care Team (Late st Contact Info) Description 08/15/2024 1:00 PM EST Nurse Only Ancillary [facility] [address] [place] [address] Vanessa, Nurse Annual Wellness [facility] [address] [facility] [place] [address] 08/16/2024 12:40 PM EST Office Visit Pulmonary Medicine, [facility] [address] [facility] [place] [address] Dom Grossman MD [address] [place] [address] 09/28/2024 10:00 AM EDT Office Visit Cardiology, [facility] [address] [facility] [place] [address] Karie Swanson, [place] 132 [facility] [place] [address] 12/01/2024 1:30 PM EDT Office Visit Cardiology, [facility] [address] [facility] [place] [address] Cindy Monte, AMANDA [address] [facility] [place] [address] 01/29/2025 3:45 PM EDT Office Visit Ophthalmology, [place] [address] [address] Abilio Hensley DO [address] [address] 02/14/2025 1:00 PM EDT Office Visit Family Practice [facility] [address] [place] [address] Rohan Mckenzie, DO [address] [facility] [place] [address] 08/16/2025 3:00 PM EST Nurse Only Ancillary [address] [place] Nitish Mendez [address] [place] [address] Vanessa Nurse Annual Wellness [facility] [address] [place] [address] Scheduled Orders Name Type Priority Associated Diagnoses Orde r Schedule XR CHEST 1 VIEW Medical Imaging Routine Pleural effusion on right Ordered: 07/28/2024 Scheduled Procedures Name Priority Associated Diagnoses Date/Ti [...] this encounter Medical Devices Implanted Type Area Chalk Tester Device Identifier Shelf Expiration Date Model / Serial / Lot Lens 17.5 Sn60wf - [id number] Implanted:Qty : 1 on 06/27/2014 by Rich Brooks MD at OR [facility] Right: Eye [employer] 03/18/2019 SN60WF.17 5 / [id number] / Lens 18.0 Sn60wf - [id number] - [id number] Implanted:Qty : 1 on 07/22/2022 by Abilio Hensley DO at OR [facility] Left: Eye MIRIAN : SURGICAL 11/16/2023 SN60WF.1 8 0 / [id number] / Patch Xenosure [id number] - [id number] Implanted:Qty : 1 on 12/24/2022 by Jean Garcia MD at OR [facility] Left: Femoral Artery [employer] [id number] 08/15/2028 E0.8P8 / [id number] / [id number] Patch Xenosure [id number] - [id number] - [id number] Implanted:Qty : 1 on 07/05/2023 by Jean Garcia MD at OR [facility] Left: Carotid [employer] [id number] 01/13/2029 E0.8P8 / [id number] / [id number] documented as of this encounter Visit Diagnoses Diagnosis Pleural effusion on right- Primary Unspecified pleural effusion documented in this encounter Advance Directives * [...] the patient have Health Care Power of Fire Control System Installer? No * Full Code Date Activated Date [...] Agents on File Name Relationship Healthcare Agent [facility] p Communication Noelle Morgan Spouse Health Care Agen t (per Health Care Power of Fire Control System Installer document) Care Teams Pole Climber Relationship Specialty Start Date End Date Rohan Mckenzie DO [address] [place] [address] PCP - General Family Medicine 05/27/16 documented as of this encounter
--- OUTSIDE RECORDS SUMMARY | 2024-08-04 01:32 | External Medical Summary ---
Author Name Unknown Address Unknown Organization K09:[facility] [place] [address] Laboratory Report Ordering Provider Test Date Status YANSANDEE 07/07/2024 10:21:36 Final Observation Date Value Abnormality Reference (Units ) Status Creatinine 07/07/2024 10:21:36 1.2 0.6-1.2 (mg/dL) Final Glomerular filtration rate/1.73 sq M.predicted [Volume Rate/Area] in Serum, Plasma or Blood by Creatinine-based formula (CKD-EPI) 07/07/2024 10:21:36 67 >=60 (mL/min) Final eGFR is calculated based on the CKD-EPI 2020 equation. Performing Location [facility] [place] [address]
--- OUTSIDE RECORDS SUMMARY | 2024-08-04 01:32 | External Medical Summary | Summary of Care ---
Author Name Unknown Organization [facility] Address [address] [place] [address] Phone [phone] Care Team Providers Care Medical Care Administrator Name Role Phone Rohan Mckenzie DO Primary Care Provider [phone] Reason for Visit * Reason Onset Date Comments Fax 04/11/2024 Encounter Details Date Type Department Care Team (Late st Contact Info) Description 04/11/2024 Telephone Access Center, [place] [address] [facility] *DO NOT REMOVE THIS DEPARTMENT* [place] [address] Services, Scheduling [address] [place] [address] Fax Allergies Active Allergy Reactions Criticality Noted Date Comments Spironolactone Other (Please comment) Medium Undesired breast changes/pain documented as of this encounter (statuses as of 07/11/2024) Medications B Complex Vitamins (B COMPLEX 50) [...] 24 Active Additional Information Patient taking differently: [id number], Reported on 07/03/2024 Albuterol Sulfate HFA 108 (90 Base) MCG/ACT [...] morning. 90 Tablet 3 10/18/19 24 Active HYDROcodone-Aceta minophen 5-325 MG Oral TabletIndications :Foraminal stenosis of lumbar region Take 1 Tablet by mouth every 6 hours as needed for Pain, Moderate. 20 Tablet 12/08/19 24 Active Additional Information Patient not taking.Reported on 07/03/2024 Ezetimibe 10 MG Oral Tablet (Zetia)Indication s:High [...] MORNING 90 Tablet 3 04/10/20 24 Active documented as of this encounter (statuses as of 07/11/2024) Active Problems Problem Noted Date Diagnosed Date Benign hypertensive heart di sease with congestive heart failure with reduced left ventricular function 12/08/2023 Foraminal stenosis of lumbar region 12/08/2023 Pleural effusion on right 11/29/2023 Ischemic cardiomyopathy 09/28/2023 Status post carotid endarterectomy 07/28/2023 History of radical dissection of right side of n sourav 06/22/2023 History of cerebral infarction 06/22/2023 Overview (12/16/2023): 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 Neuropathy 05/17/2023 Infrarenal abdominal aortic aneurysm (AAA) witho ut rupture 11/18/2022 Carotid stenosis, non-symptomatic, bilateral 09/2022 PVD (peripheral vascular disease) 10/07/2022 Pulmonary fibrosis 08/07/2021 Lung nodule 05/30/2021 Overview (05/30/2021): Repeat CT in 12/07 Abdominal aortic ectasia 02/19/2021 Overview (02/19/2021): Recheck 03/10 Coronary artery disease of n ative artery of [place] heart with stable angina pectoris 09/19/2020 Essential [...] as of this encounter (statuses as of 07/11/2024) Resolved Problems Problem Noted Date Diagnosed Date Resolved Date Aneurysm of aorta 05/17/2023 12/08/2023 Old myocardial infarction 05/17/2023 Tinea pedis of both feet 11/18/2022 Atherosclerosis of [place] co ronary artery without angina pectoris 09/15/2022 12/08/2023 Coronary artery disease invo lving coronary bypass graft of [place] heart 03/07/2020 12/08/2023 Neuropathic foot ulcer, righ [...] wall PR, angioplasty and stent placement at [facility]. documented as of this encounter (statuses as of 07/11/2024) Immunizations Name Administration Dates Next Due COVID-19 mRNA, LNP-s, No Pre serve, 2-Dose Series ([employer]) 05/27/2021,10/10/2020,09/12/2020 Covid-19, Mrna, Lnp-s, Pf, B ivalent, 30 Mcg, IM, 12 yrs and above ([employer]) 06/23/2022 Pneumococcal Conjugate Vacci ne, 20-valent ([id number]) 07/03/2022 Pneumococcal Polysaccharide PPV23 (Pneumovax) 06/17/2021,04/01/2006 Seasonal Influenza Vac., MDV , IM, 0.5 mL (Fluzone) 03/26/2014,04/08/2013,04/14/2011,04/30,06/12/2009,05/29/2008,05/05/2007 ,06/15/2006 Seasonal Influenza Virus Vac cine, Unspecified Formulation 04/07/2023,04/08/2022,04/22/2021,04/01,04/10/2019,04/26/2018,04/21/2017 ,04/22/2016,03/26/2014,04/08/2013,03/20,04/30/2010,06/12/2009, 8,05/05/2007,06/15/2006 Seasonal Influenza, PF, 6 M & above, [...] drink = 0.6 oz pur e alcohol) 3-4 beer per day AUDIT-C Answer [...] 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 Enc sent to radiology to have images pushed. * Telephone Encounter - Dara Daniel OSA - 04/11/2024 8:28 AM EDT Caller requesting the following information to be faxed: Name/Company of caller: Dr. Estela Anaya Office Information requested to be faxed: [place] Report Fax number: [phone] Attention to Name/Company: [employer] Report has been sent over via [employer], please have the below completed. Any additional information?: ALSO; Requesting to have results pushed into PACs for their review. Ptis scheduled for an appointment, 04/12/24 documented in this encounter Plan of Treatment Upcoming Encounters Date Type Department Care Team (Late st Contact Info) Description 07/17/2024 12:40 PM EST Office Visit [facility] [address] [place] [address] Rohan Mckenzie, DO [address] [facility] [place] [address] 07/27/2024 2:00 PM EST Scheduled Telephone Interventional Pain Center, [facility] [address] [facility] [place] [address] Rachid Nurse Phone Call Interventional Pain [facility] [address] [place] [address] 08/15/2024 1:00 PM EST Nurse Only Ancillary [facility] [address] [place] [address] Vanessa Nurse Annual Wellness [facility] [address] [facility] [place] [address] 08/16/2024 12:40 PM EST Office Visit Pulmonary Medicine, [facility] 132 [place] [address] Dom Grossman MD [address] [place] [address] 09/28/2024 10:00 AM EDT Office Visit Cardiology, [facility] 132 [facility] [place] [address] Karie Swanson PA-C 132 [facility] [place] [address] 12/01/2024 1:30 PM EDT Office Visit Cardiology, [facility] 132 [facility] [place] [address] Cindy Monte CRNP [facility] [address] 01/29/2025 3:45 PM EDT Office Visit Ophthalmology, [place] [address] [facility] [place] [address] Abilio Hensley DO [address] [facility] [place] [address] 08/16/2025 3:00 PM EST Nurse Only Ancillary [facility] [address] [facility] [place], [place] [address] Vanessa, Nurse Annual Wellness [facility] [address] [place] [address] Scheduled Procedures Name Priority Associated Diagnoses Date/Ti [...] this encounter Medical Devices Implanted Type Area Coil Machine Operator Device Identifier Shelf Expiration Date Model / Serial / Lot Lens 17.5 Sn60wf - [id number] Implanted:Qty : 1 on 06/27/2014 by Rich Brooks MD at OR [facility] Right: Eye [employer] 03/18/2019 SN60WF.17 5 / [id number] / Lens 18.0 Sn60wf - [id number] - [id number] Implanted:Qty : 1 on 07/22/2022 by Abilio Hensley DO at OR [facility] Left: Eye MIRIAN : SURGICAL 11/16/2023 SN60WF.1 8 0 / [id number] / Patch Xenosure [id number] - [id number] Implanted:Qty : 1 on 12/24/2022 by Jean Garcia MD at OR [facility] Left: Femoral Artery [employer] [id number] 08/15/2028 E0.8P8 / [id number] / [id number] Patch Xenosure [id number] - [id number] - [id number] Implanted:Qty : 1 on 07/05/2023 by Jean Garcia MD at OR [facility] Left: Carotid [employer] [id number] 01/13/2029 E0.8P8 / [id number] / [id number] documented as of this encounter Advance Directives [...] the patient have Health Care Power of Handbag Operator? No * Full Code Date Activated [...] Agen t (per Health Care Power of Handbag Operator document) Care Teams Medical Care Administrator Relationship Specialty Start Date End Date Rohan Mckenzie DO [address] [place] [address] PCP - General Family Medicine 05/27/16 documented as of this encounter
--- OUTSIDE RECORDS SUMMARY | 2024-08-04 01:32 | External Medical Summary ---
Author Name Unknown Address Unknown Organization K01:[facility] - [address] [place] [address] Laboratory Report Ordering Provider Test Date Status RITA PETERSEN 07/07/2024 10:21:36 Final Observation Date Value Abnormality Reference (Units ) Status PSA 07/07/2024 10:21:36 4.35 Above high normal <4 .10 (ng/mL) Final Performing Location [facility] - [address] [place] [address]
--- OUTSIDE RECORDS SUMMARY | 2024-08-04 01:32 | External Medical Summary | Summary of Care ---
Author Name Unknown Organization [facility] Address [address] [facility] [place] [address] Phone [phone] Care Team Providers Care Attending Urologist Name Role Phone Rohan Mckenzie DO Primary Care Provider [phone] Reason for Visit * Reason Comments eRx-Medication Refill Encounter Details Date Type Department Care Team (Late st Contact Info) Description 07/06/2024 Refill Pulmonary Medicine, [facility] [address] [place] [address] Verna Sprague MD [address] [place] [address] Allergies Active Allergy Reactions Criticality Noted Date Comments Spironolactone Other (Please comment) Medium Undesired breast changes/pain documented as of this encounter (statuses as of 07/10/2024) Medications B Complex Vitamins (B COMPLEX 50) [...] 024 Active Additional Information Patient taking differently: [id number], Reported on 07/03/2024 Albuterol Sulfate HFA 108 [...] the morning. 90 Tablet 3 024 Active HYDROcodone-Acet aminophen 5-325 MG Oral TabletIndication s:Foraminal stenosis of lumbar region Take 1 Tablet by mouth every 6 hours as needed for Pain, Moderate. 20 Tablet 024 Active Additional Information Patient not taking.Reported on 07/03/2024 Ezetimibe 10 MG Oral Tablet (Zetia)Indicatio ns:High [...] 75 mg twice daily. 180 Tablet 3 Active Metoprolol Succinate ER 50 MG Oral Tablet Extended Release 24 Hour (toPROL XL)Indications:D yslipidemia, goal LDL below 100,Essential (primary) hypertension,Old myocardial infarction Take 1 Tablet by mouth in the morning and 1 Tablet before bedtime. 180 Tablet 3 Active Rosuvastatin Calcium 10 MG Oral Tablet (Crestor) Take 1 Tablet by mouth in the morning. 90 Tablet 3 Active Amiodarone HCl 200 MG Oral Tablet (Cordarone) Take 1 Tablet by mouth in the morning. 90 Tablet 3 024 Active Clopidogrel Bisulfate 75 MG Oral Tablet (pLAVix) TAKE 1 TABLET BY MOUTH EVERY DAY IN THE MORNING 90 Tablet 3 Active Gabapentin 300 MG Oral Capsule (Neurontin)Indic ations:Spinal stenosis of lumbar region with neurogenic claudication,Spo ndylosis of lumbar region without myelopathy or radiculopathy Take 1 Capsule by mouth in the morning and 1 Capsule before bedtime. 60 Capsule 3 Active Respiratory Therapy Supplies Device Use as directed. PleurX catheter, right Active Azithromycin 250 MG Oral Tablet (Zithromax Z-Perry) Please take 500 mg by mouth on day one, followed by 250 mg by mouth for four days. 6 Tablet Active methylPREDNISolo ne 4 MG Oral Tablet Therapy Pack (Medrol Dosepack) follow package directions 21 Tablet Active Additional Information Patient not taking.Reported on 07/03/2024 Trelegy Ellipta 100-62.5-25 MCG/ACT Aerosol Powder Breath Activated (Fluticasone-Ume clidinium-Vilant martinez) INHALE 1 PUFF BY MOUTH IN THE MORNING 60 Each 11 Active Trelegy Ellipta 100-62.5-25 MCG/ACT Aerosol Powder Breath Activated (Fluticasone-Ume clidinium-Vilant martinez) Inhale 1 Puff by mouth in the morning. NPI : [id number]. 90 Blister Dosing Unit 3 024 2023 Discontinued documented as of this encounter (statuses as of 07/10/2024) Active Problems Problem Noted Date Diagnosed Date [...] artery disease of n ative artery of [place] heart with stable angina pectoris 09/19/2020 Essential [...] as of this encounter (statuses as of 07/10/2024) Resolved Problems Problem Noted Date Diagnosed Date Resolved Date Aneurysm of aorta 05/17/2023 12/08/2023 Old myocardial infarction 05/17/2023 Tinea pedis of both feet 11/18/2022 Atherosclerosis of [place] co ronary artery without angina pectoris 09/15/2022 12/08/2023 Coronary artery disease invo lving coronary bypass graft of [place] heart 03/07/2020 12/08/2023 Neuropathic foot ulcer, righ [...] DIS NOS 07/05/2002 hypercholesterol 07/05/2002 12/08/2023 Post [place] syndrome 07/05/2002 08/12/2018 Overview (07/13/2015): 1996 age 41, inferior wall [place], [place] [facility] 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 on file [...] encounter Miscellaneous Notes * Telephone Encounter - Dom Estrada MD - 07/10/2024 2:19 PM EST Signed Prescriptions: Disp Refills Trelegy Ellipta 100-62.5-25 MCG/ACT Aeroso*60 Each11 Sig: INHALE 1 PUFF BY MOUTH IN THE MORNING Authorizing Provider: DOM ESTRADA * Telephone Encounter - Leidy Andrea LPN - 07/07/2024 8:39 AM ESTPending Prescriptions: Disp Refills Krystal Painter 100-62.5-25 MCG/ACT Aeroso*60 Each11 Sig: INHALE 1 PUFF BY MOUTH IN THE MORNING documented in this encounter Plan of Treatment Upcoming Encounters Date Type Department Care Team (Late st Contact Info) Description 07/17/2024 12:40 PM EST Office Visit Family Practice [facility] [address] [facility] [place] [address] Rohan Mckenzie, [address] [facility] [address] [place], [place] [address] 07/27/2024 2:00 PM EST Scheduled Telephone Interventional [facility], [facility] [address] Rachid Nurse Phone Call Interventional [facility] [address] 08/15/2024 1:00 PM EST Nurse Only Ancillary [facility] [address] [place] [address] Vanessa Nurse Annual Wellness [facility] [address] [facility] [place] [address] 08/16/2024 12:40 PM EST Office Visit Pulmonary Medicine, [facility] [address] [facility] [place] [address] Dom Estrada MD [address] [facility] [place] [address] 09/28/2024 10:00 AM EDT Office Visit Cardiology, [facility] [address] [facility] [place] [address] Karie Swanson PA-C 132 [facility] [place] [address] 12/01/2024 1:30 PM EDT Office Visit Cardiology, [facility] [address] [facility] [place] [address] Cindy Monte CRNP [address] [facility] [place] [address] 01/29/2025 3:45 PM EDT Office Visit [facility] [address] [place] [address] Abilio Hensley DO [address] [place] [address] 08/16/2025 3:00 PM EST Nurse Only Ancillary Scenery [place] [address] [place] [address] [place], Nurse Annual Wellness Scenery [address] [place] [address] Scheduled Procedures Name Priority Associated Diagnoses Date/Ti [...] this encounter Medical Devices Implanted Type Area Purchasing Coordinator Device Identifier Shelf Expiration Date Model / Serial / Lot Lens 17.5 Sn60wf - [id number] Implanted:Qty : 1 on 06/27/2014 by Rich Brooks MD at OR [facility] Right: Eye [employer] 03/18/2019 SN60WF.17 5 / [id number] / Lens 18.0 Sn60wf - [id number] - [id number] Implanted:Qty : 1 on 07/22/2022 by Abilio Hensley DO at OR [facility] Left: Eye MIRIAN : SURGICAL 11/16/2023 SN60WF.1 8 0 / [id number] / Patch Xenosure 0.7thc6gn - [id number] Implanted:Qty : 1 on 12/24/2022 by Jean Garcia [place] [facility] [place]: Femoral Artery [employer] [id number] 08/15/2028 E0.8P8 / [id number] / [id number] Patch Xenosure 0.0sbw0hj - [id number] - [id number] Implanted:Qty : 1 on 07/05/2023 by Jean Garcia MD [place] [facility] [place]: Carotid [employer] [id number] 01/13/2029 E0.8P8 / [id number] / [id number] documented as of this encounter Advance Directives [...] the patient have Health Care Power of Physician Compensation Analyst? No * Full Code Date Activated Date [...] Agen t (per Health Care Power of Physician Compensation Analyst document) Care Teams Attending Urologist Relationship Specialty Start Date End Date Rohan Mckenzie DO [facility] [place] [address] PCP - General Family Medicine 05/27/16 documented as of this encounter
--- OUTSIDE RECORDS SUMMARY | 2024-08-04 01:32 | External Medical Summary | Summary of Care ---
Author Name Unknown Organization [facility] [address] [facility] [address] Phone [phone] Care Team Providers Care Cast Shell Grinder Name Role Phone Rohan Mckenzie DO Primary Care Provider [phone] Reason for Visit * Reason Comments Outpatient Testing Encounter Details Date Type Department Care Team (Late st Contact Info) Description 07/07/2024 10:30 AM EST [facility] [place] [address] [place] [id number] [place], Lab Scenery [address] [place] [address] Pleural effusion on right; BPH with obstruction/lower urinary tract symptoms Allergies Active Allergy Reactions Criticality Noted Date Comments Spironolactone Other (Please comment) Medium Undesired breast changes/pain documented as of this encounter (statuses as of 07/07/2024) Medications B Complex Vitamins (B COMPLEX 50) [...] 24 Active Additional Information Patient taking differently: [id number], Reported on 07/03/2024 Albuterol Sulfate HFA 108 (90 Base) MCG/ACT Inhalation Aerosol SolutionIndicatio ns:Pulmonary fibrosis (HCC),Lung nodule,PVD (peripheral vascular disease) (HCC) TAKE 2 PUFFS BY MOUTH EVERY 6 HOURS NEEDED FOR WHEEZE 18 g 3 09/13/19 24 Active Eplerenone 25 MG Oral Tablet (Inspra)Indicatio ns:Ischemic cardiomyopathy,Ac standing rock systolic congestive heart failure, NYHA class 1 [...] by mouth for four days. 6 Tablet 06/05/20 Active methylPREDNISolon e 4 MG Oral Tablet Therapy Pack (Medrol Dosepack) follow package directions 21 Tablet 06/05/20 Active Additional Information Patient not taking.Reported on 07/03/2024 Krystal Painter 100-62.5-25 MCG/ACT Aerosol Powder Breath Activated (Fluticasone-Umec lidinium-Vilanter ol) Inhale 1 Puff by mouth in the morning. NPI : [id number]. 90 Blister Dosing Unit 3 06/26/20 Active documented as of this encounter (statuses as of 07/07/2024) Active Problems Problem Noted Date Diagnosed Date [...] artery disease of n ative artery of [place] heart with stable angina pectoris 09/19/2020 Essential [...] as of this encounter (statuses as of 07/07/2024) Resolved Problems Problem Noted Date Diagnosed Date Resolved Date Aneurysm of aorta 05/17/2023 12/08/2023 Old myocardial infarction 05/17/2023 Tinea pedis of both feet 11/18/2022 Atherosclerosis of [place] co ronary artery without angina pectoris 09/15/2022 12/08/2023 Coronary artery disease invo lving coronary bypass graft of [place] heart 03/07/2020 12/08/2023 Neuropathic foot ulcer, righ [...] DIS NOS 07/05/2002 hypercholesterol 07/05/2002 12/08/2023 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 on file Not [...] 12:40 PM EST Office Visit Family Practice [facility] [address] [place] [address] Rohan Mckenzie, DO 200 [facility] [place] [address] 07/27/2024 2:00 PM EST Scheduled Telephone [facility], [facility] [address] [place] [address] Nurse Rachid Phone Call Interventional Pain [place] [address] [place] [address] 08/15/2024 1:00 PM EST Nurse Only Ancillary [facility] [address] [place] [address] Vanessa Nurse Annual Wellness Scenery [address] [place] [address] 08/16/2024 12:40 PM EST Office Visit Pulmonary Medicine, [facility] 132 [facility] [place] [address] Dom Grossman MD [address] [place] [address] 09/28/2024 10:00 AM EDT Office Visit Cardiology, [facility] 132 [facility] [place] [address] Karie Swanson PA-C 132 [facility] [place] [address] 12/01/2024 1:30 PM EDT Office Visit Cardiology, [facility] 132 [facility] [place] [address] Cindy Monte CRNP 400 [facility] [place] [address] 01/29/2025 3:45 PM EDT Office Visit Ophthalmology, [place] [address] [place] [address] Abilio Hensley DO [address] [place] [address] 08/16/2025 3:00 PM EST Nurse Only Ancillary Scenery [place] [address] [place] [address] [place]essa Nurse Annual Wellness Scenery [address] [place] [address] Pending Results Name Type Priority Associated Diagnoses Date /Time CREATININE Lab Routine Pleural effusion on right 07/07/2024 10:21 AM EST PSA Lab Routine BPH with obstruction/lower urinary tract symptoms 07/07/2024 10:21 AM EST Scheduled Procedures Name Priority Associated Diagnoses Date/Ti me COLONOSCOPY FLEXIBLE PROXIMAL DIAGNOSTIC Recall History of colon polyps Health Maintenance Due Date Last Done Comments Cologuard 2000 Fecal Occult Blood Test 2000 Sigmoidoscopy 2000 Colonoscopy 01/12/2023 01/12/2018, 12/18, 01/06/2013, Additional history exists Colorectal Cancer Screening 01/12/2023 COVID-19 Vaccine ( season) 2024 06/23/2022, 05/27/2021, 10/10/2020, Additional history exists Adult Wellness Visit 08/11/2024 08/11/2023 GFR 06/13/2025 06/13/2024, 08/0 01/2024, 01/26/2024, Additional history exists Depression Screening 06/28/2025 06/28/2024 Albumin/Creatinine Ratio 10/23/2025 10/23/2022 Diabetes Screening 02/22/2027 [...] this encounter Medical Devices Implanted Type Area Construction Sales Representative Device Identifier Shelf Expiration Date Model / Serial / Lot Lens 17.5 Sn60wf - [id number] Implanted:Qty : 1 on 06/27/2014 by Rich Brooks MD at OR [facility] Right: Eye [employer] 03/18/2019 SN60WF.17 5 / [id number] / Lens 18.0 Sn60wf - [id number] - [id number] Implanted:Qty : 1 on 07/22/2022 by Abilio Hensley DO at OR [facility] Left: Eye MIRIAN : SURGICAL 11/16/2023 SN60WF.1 8 0 / [id number] / Patch Xenosure 0.8aig2mc - [id number] Implanted:Qty : 1 on 12/24/2022 by Jean Garcia MD at OR [facility] Left: Femoral Artery [employer] [id number] 08/15/2028 E0.8P8 / [id number] / [id number] Patch Xenosure 0.7nsx9hn - [id number] - [id number] Implanted:Qty : 1 on 07/05/2023 by Jean Garcia MD at OR [facility] Left: Carotid [employer] [id number] 01/13/2029 E0.8P8 / [id number] / [id number] documented as of this encounter Visit Diagnoses Diagnosis Pleural effusion on right Unspecified pleural effusion BPH with obstruction/lower urinary tract symptoms Hypertrophy of prostate with urinary obstruction and other lower urinary tract symptoms (LUTS) documented in this encounter Advance Directives * [...] the patient have Health Care Power of New Account Interviewer? No * Full Code Date Activated Date [...] Agen t (per Health Care Power of New Account Interviewer document) Care Teams Cast Shell Grinder Relationship Specialty Start Date End Date Rohan Mckenzie DO [address] [place] [address] PCP - General Family Medicine 05/27/16 documented as of this encounter
--- OUTSIDE RECORDS SUMMARY | 2024-08-04 01:32 | External Medical Summary | Summary of Care ---
Author Name Unknown Organization [facility] Address [address] [place] [address] Phone [phone] Care Team Providers Care Golf Ball Molder Name Role Phone JonahRohan Brittney CESPEDES Primary Care Provider [phone] Reason for Visit * Reason Onset Date Comments Advice 07/05/2024 Encounter Details Date Type Department Care Team (Late st Contact Info) Description 07/05/2024 Telephone Thoracic Surg [facility] [address] [place], [place] [id number] Corinne Orellana PA-C [address] [place] [address] Advice Allergies Active Allergy Reactions Criticality Noted Date Comments Spironolactone Other (Please comment) Medium Undesired breast changes/pain documented as of this encounter (statuses as of 07/05/2024) Medications B Complex Vitamins (B COMPLEX 50) [...] 24 Active Additional Information Patient taking differently: [id number], Reported on 07/03/2024 Albuterol Sulfate HFA 108 [...] mouth for four days. 6 Tablet 06/05/20 24 Active methylPREDNISolon e 4 MG Oral Tablet Therapy Pack (Medrol Dosepack) follow package directions 21 Tablet 06/05/20 24 Active Additional Information Patient not taking.Reported on 07/03/2024 Krystal Painter 100-62.5-25 MCG/ACT Aerosol Powder Breath Activated (Fluticasone-Umec lidinium-Vilanter ol) Inhale 1 Puff by mouth in the morning. NPI : [id number]. 90 Blister Dosing Unit 3 06/26/20 24 Active documented as of this encounter (statuses as of 07/05/2024) Active Problems Problem Noted Date Diagnosed Date [...] artery disease of n ative artery of [place] heart with stable angina pectoris 09/19/2020 Essential [...] as of this encounter (statuses as of 07/05/2024) Resolved Problems Problem Noted Date Diagnosed Date Resolved Date Aneurysm of aorta 05/17/2023 12/08/2023 Old myocardial infarction 05/17/2023 Tinea pedis of both feet 11/18/2022 Atherosclerosis of [place] co ronary artery without angina pectoris 09/15/2022 12/08/2023 Coronary artery disease invo lving coronary bypass graft of [place] heart 03/07/2020 12/08/2023 Neuropathic foot ulcer, righ [...] DIS NOS 07/05/2002 hypercholesterol 07/05/2002 12/08/2023 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. documented as of this encounter (statuses as of 07/05/2024) Immunizations Name Administration Dates Next Due COVID-19 mRNA, LNP-s, No Pre serve, 2-Dose Series ([employer]) 05/27/2021,10/10/2020,09/12/2020 Covid-19, Mrna, Lnp-s, Pf, B ivalent, 30 Mcg, IM, 12 yrs and above ([employer]) 06/23/2022 Pneumococcal Conjugate Vacci ne, 20-valent ([id number]) 07/03/2022 Pneumococcal Polysaccharide PPV23 (Pneumovax) 06/17/2021,04/01/2006 RSV [...] No 06/28/2024 Does the household have a [facility] source of income? 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 Received a call from Brandan asking what he should do with his wound after 48hrs if he should leave the bandage off. I clarke Johnson and she advised of the below: And he verbalized understanding. SHERIE Mukherjee 07/05/2024 2:03 PM documented in this encounter Plan of Treatment Upcoming Encounters Date Type Department Care Team (Late st Contact Info) Description 07/17/2024 12:40 PM EST Office Visit [facility] 200 [facility] [place], [place] [address] Rohan Mckenzie, DO 200 [facility] [place], [place] [address] 07/27/2024 2:00 PM EST Scheduled Telephone Interventional Pain Center, [facility] 132 [facility] [place] [address] Nurse Rachid Phone Call Interventional Pain [address] [place] [address] 08/15/2024 1:00 PM EST Nurse Only [facility]illary [facility] [place] [address] [place] [address] Vanessa Nurse Annual Wellness Scenery [address] [place] [address] 08/16/2024 12:40 PM EST Office Visit Pulmonary Medicine, [address] [place] [address] Dom Grossman MD [address] [facility] [place] [address] 09/28/2024 10:00 AM EDT Office Visit Cardiology, [facility] 132 [facility] [place] [address] Karie Swanson PA-C 132 [facility] [place] [address] 12/01/2024 1:30 PM EDT Office Visit Cardiology, [facility] 132 [facility] [place] [address] Cindy Monte CRNP [address] [place] [address] [place] [address] 01/29/2025 3:45 PM EDT Office Visit Ophthalmology, [place] [address] [place] [address] Abilio Hensley DO [address] [place] [address] 08/16/2025 3:00 PM EST Nurse Only Ancillary Scenery [place] [address] [place] [address] [place]essa, Nurse Annual Wellness Scenery [address] [place] [address] Scheduled Procedures Name Priority Associated Diagnoses Date/Ti [...] this encounter Medical Devices Implanted Type Area Physician Allergist Immunologist Device Identifier Shelf Expiration Date Model / Serial / Lot Lens 17.5 Sn60wf - [id number] Implanted:Qty : 1 on 06/27/2014 by Rich Brooks MD at OR [facility] Right: Eye [employer] 03/18/2019 SN60WF.17 5 / [id number] / Lens 18.0 Sn60wf - [id number] - [id number] Implanted:Qty : 1 on 07/22/2022 by Abilio Hensley DO at OR [facility] Left: Eye MIRIAN : SURGICAL 11/16/2023 SN60WF.1 8 0 / [id number] / Patch Xenosure 0.5fub7ct - [id number] Implanted:Qty : 1 on 12/24/2022 by Jean Garcia MD at OR [facility] Left: Femoral Artery [employer] [id number] 08/15/2028 E0.8P8 / [id number] / [id number] Patch Xenosure 0.1upg9tk - [id number] - [id number] Implanted:Qty : 1 on 07/05/2023 by Jean Garcia MD at OR [facility] Left: Carotid [employer] [id number] 01/13/2029 E0.8P8 / [id number] / [id number] documented as of this encounter Advance Directives [...] the patient have Health Care Power of Manager Marketing? No * Full Code Date Activated Date [...] Agen t (per Health Care Power of Manager Marketing document) Care Teams Golf Ball Molder Relationship Specialty Start Date End Date Rohan Mckenzie DO [address] [place] [address] PCP - General Family Medicine 05/27/16 documented as of this encounter
--- OUTSIDE RECORDS SUMMARY | 2024-08-04 01:33 | External Medical Summary | Summary of Care ---
Author Name Unknown Organization [facility] Address [address] [facility] [address] Phone [phone] Care Team Providers Care Director Clinical Information Services Name Role Phone Rohan Mckenzie DO Primary Care Provider [phone] Reason for Visit * Reason Onset Date Comments Test Results 06/27/2024 Cxray Encounter Details Date Type Department Care Team (Late st Contact Info) Description 06/27/2024 Telephone Pulmonary Medicine, [facility] [address] [facility] [place] [id number] Dom Grossman MD [address] [facility] [place] [id number] Test Results (Cxray) Allergies Active Allergy Reactions Criticality Noted Date Comments Spironolactone Other (Please comment) Medium 4 Undesired breast changes/pain documented as of this encounter (statuses as of 06/27/2024) Medications B Complex Vitamins (B COMPLEX 50) [...] 24 Active Additional Information Patient taking differently: [id number], Reported on 06/22/2024 Albuterol Sulfate HFA 108 (90 Base) MCG/ACT [...] Active Additional Information Patient not taking.Reported on 06/22/2024 Ezetimibe 10 MG Oral Tablet (Zetia)Indication s:High [...] bedtime. 180 Tablet 1 02/21/20 24 Active Furosemide 40 MG Oral Tablet (Lasix)Indication s:Acute systolic congestive heart failure, NYHA class 1 (HCC),Essential (primary) hypertension Take 1 Tablet by mouth in the morning. 90 Tablet 3 02/22/20 24 Active Additional Information Patient not taking.Reported on 06/22/2024 Metoprolol Succinate ER 25 MG Oral Tablet [...] for four days. 6 Tablet 06/05/20 Active Additional Information Patient not taking.Reported on 06/22/2024 methylPREDNISolon e 4 MG Oral Tablet Therapy Pack (Medrol Dosepack) follow package directions 21 Tablet 06/05/20 Active Additional Information Patient not taking.Reported on 06/22/2024 Trelegy Ellipta 100-62.5-25 MCG/ACT Aerosol Powder Breath Activated (Fluticasone-Umec lidinium-Vilanter ol) Inhale 1 Puff by mouth in the morning. NPI : [id number]. 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 09/19/2020 Essential [...] as of this encounter (statuses as of 06/27/2024) Resolved Problems Problem Noted Date Diagnosed Date Resolved Date Aneurysm of aorta 05/17/2023 12/08/2023 Old myocardial infarction 05/17/2023 Tinea pedis of both feet 11/18/2022 Atherosclerosis of sh[place]ute co ronary artery without angina pectoris 09/15/2022 12/08/2023 Coronary artery disease invo lving coronary bypass graft of shoshone[place]paiute heart 03/07/2020 12/08/2023 Neuropathic foot ulcer, righ [...] DIS NOS 07/05/2002 hypercholesterol 07/05/2002 12/08/2023 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 documented as of this encounter (statuses as of 06/27/2024) Immunizations Name Administration Dates Next Due COVID-19 mRNA, LNP-s, No Pre serve, 2-Dose Series (Vicampo) 05/27/2021,10/10/2020,09/12/2020 Covid-19, Mrna, Lnp-s, Pf, B ivalent, 30 Mcg, IM, 12 yrs and above (Vicampo) 06/23/2022 Pneumococcal Conjugate Vacci ne, 20-valent ([id number]) 07/03/2022 Pneumococcal Polysaccharide PPV23 (Pneumovax) 06/17/2021,04/01/2006 RSV [...] Answer Date Recorded PHQ Adult Total Score 0 08/11/2023 Hunger Vital Sign Answer Date Recorded Within the past 12 months, y ou worried that your food would run out before you got the money to buy more. Never true 08/11/19 24 Within the past 12 months, t he food you bought just didn't last and you didn't have money to get more. Never true 08/11/2023 Childcare Answer Date Recorded Do you feel overwhelmed with taking care of a child, family member or friend? No 08/11/2023 Does your family need help f inding childcare? (Household - for ages 0-17 years) Not on file 08/11/2023 Clothing Answer Date Recorded Have you been unable to get clothing when it was really needed? No 08/11/2023 Is your family able to get c lothes or diapers when needed? (Household - for ages 0-17 years) Not on file 08/11/2023 Personal Safety Answer Date Recorded Do you feel unsafe or have concerns for your saf ety? No 08/11/2023 Do you have concerns for you r family's safety? (Household - for ages 0-17 years) Not on file 08/11/2023 Utilities Answer Date Recorded Do you have trouble paying y our heating, water, or electric bill? No 08/11/2023 Is your family able to pay t he heat, water, or electric bill? (Household - for ages 0-17 years) Not on file 08/11/2023 Does your family have access to good internet? (Household - for ages 0-17 years) Not on file 08/11/2023 Employment Status Answer Date Recorded Are you unemployed or without regular income? No 08/11/2023 Does the household have a re gular source of income? (Household - for ages 0-17 years) Not on file 08/11/2023 Social Connections Answer Date Recorded How often do you feel lonely or isolated from th ose around you? Never 08/11/2023 Financial Resource Strain Answer Date R ecorded Do you have any trouble payi ng for your medications, or do you think you might in the future? No 08/11/2023 Does your family have troubl e paying for medicine? (Household - for ages 0-17 years) Not on file 08/11/2023 Transportation Needs Answer Date Record ed READ ONLY Do you have troubl e getting a ride to medical visits or work? Never True 08/11/2023 Does your family have a hard time getting a ride to doctors visits? (Household - for ages 0-17 years) Not on file 08/11/2023 Has lack of transportation k ept you from medical appointments, meetings, work, or from getting things needed for daily living? Check all that apply. (Adult - for ages 18 years and over) Not on file 08/11/2023 Do you (or your family) have trouble finding or paying for a ride (transportation)? (Household - for ages 0-17 years) Not on file 08/11/2023 Housing Stability Answer Date Recorded Do you currently live in a s helter or have no steady place to sleep at night? No 08/11/2023 READ ONLY Do you think you a re at risk of becoming homeless? No 08/11/2023 Does your family worry about paying for your home or becoming homeless? (Household - for ages 0-17 years) Not on file 0 08/11/2023 Are you homeless or worried that you might be in the future? (Adult - for ages 18 years and over) Not on file Are you (or your family) dyana eless or worried that you might be in the future? (Household - for ages 0-17 years) Not on file Food Insecurity Answer Date Recorded Do you need food for this week? No 08/11/2023 Are you able to get enough f ood for your family? (Household - for ages 0-17 years) Not on file 08/11/2023 Does your family need food t his week? (Household - for ages 0-17 years) Not on file 08/11/2023 Do you always have enough fo od for your family? 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 There is a right basilar chest tube. Mild cardiomegaly. Right basilar opacity from atelectasis or consolidation with pleural effusion. No pneumothorax. IMPRESSION Right basilar opacity/pleural fluid. Chart note documented in this encounter Plan of Treatment Upcoming Encounters Date Type Department Care Team (Late st Contact Info) Description 07/17/2024 12:40 PM EST Office Visit Family Practice [facility] [place] [address] [place] [address] Rohan Mckenzie DO [address] [facility] [place] [address] 07/27/2024 2:00 PM EST Scheduled Telephone Interventional Pain Center, [facility] [address] [facility] [address] [facility] [place] [address] Rachid, Nurse Phone Call Interventional Pain [facility] [address] [place] [address] 08/15/2024 1:00 PM EST Nurse Only Ancillary [facility] [place] [address] [facility] [place] [address] [place], Nurse Annual Wellness [facility] [address] [facility] [place] [address] 08/16/2024 12:40 PM EST Office Visit Pulmonary Medicine, [facility] [address] [facility] [place] [address] Dom Grossman MD [address] [place] [address] 09/28/2024 10:00 AM EDT Office Visit Cardiology, [facility] [address] [facility] [place] [address] Karie Swanson, PASreekanth [address] [place] [address] 12/01/2024 1:30 PM EDT Office Visit Cardiology, [facility] [address] [place] [address] Cindy Monte CRNP [address] [facility] [place] [address] 01/24/2025 1:15 PM EDT Office Visit Ophthalmology, [place] [address] [place] [address] Abilio Hensley DO [address] [place] [address] 08/16/2025 3:00 PM EST Nurse Only Ancillary [place] [address] [place] [address] [place], Nurse Annual Wellness [place] [address] [place] [address] Scheduled Procedures Name Priority Associated Diagnoses Date/Ti me COLONOSCOPY FLEXIBLE PROXIMAL DIAGNOSTIC Recall History of colon polyps Health Maintenance Due Date Last Done Comments Cologuard 2000 Fecal Occult Blood Test 2000 Sigmoidoscopy 2000 Colonoscopy 01/12/2023 01/12/2018, 12/18, 01/06/2013, Additional history exists Colorectal Cancer Screening 01/12/2023 COVID-19 Vaccine ( season) 2024 06/23/2022, 05/27/2021, 10/10/2020, Additional history exists Adult Wellness Visit 08/11/2024 08/11/2023 Depression Screening 08/11/2024 08/11/2023 GFR 06/13/2025 06/13/2024, 08/0 01/2024, 01/26/2024, Additional history exists Albumin/Creatinine Ratio 10/23/2025 10/23/2022 [...] this encounter Medical Devices Implanted Type Area Linux Network Systems Administrator Device Identifier Shelf Expiration Date Model / Serial / Lot Lens 17.5 Sn60wf - [id number] Implanted:Qty : 1 on 06/27/2014 by Rich Brooks MD at OR [facility] Right: Eye [employer] 03/18/2019 SN60WF.17 5 / [id number] / Lens 18.0 Sn60wf - [id number] - [id number] Implanted:Qty : 1 on 07/22/2022 by Abilio Hensley DO at OR [facility] Left: Eye MIRIAN : SURGICAL 11/16/2023 SN60WF.1 8 0 / [id number] / Patch Xenosure [id number] - [id number] Implanted:Qty : 1 on 12/24/2022 by Jean Garcia MD at [place] [facility] Left: Femoral Artery [employer] [id number] 08/15/2028 E0.8P8 / [id number] / [id number] Patch Xenosure [id number] - [id number] - [id number] Implanted:Qty : 1 on 07/05/2023 by Jean Garcia MD at [place] [facility] Left: Carotid [employer] [id number] 01/13/2029 E0.8P8 / [id number] / [id number] documented as of this encounter Advance Directives [...] the patient have Health Care Power of Auto Mechanics Instructor? No * Full Code Date Activated Date [...] and were consensually agreed upon. Care Teams Director Clinical Information Services Relationship Specialty Start Date End Date Rohan Mckenzie DO [address] [place] [address] PCP - General Family Medicine 05/27/16 documented as of this encounter
--- OUTSIDE RECORDS SUMMARY | 2024-08-04 01:33 | External Medical Summary | Summary of Care ---
Author Name Unknown Organization [facility] Address [address] [place] [address] Phone [phone] Care Team Providers Care Supervisor Stage Carpentry Name Role Phone Rohan Mckenzie DO Primary Care Provider [phone] Reason for Referral * Precert (Within 10 days (routine)) - Authorized Specialty Diagnoses / Procedures Referred By Conttadeo jalloh Referred To Contact Radiology Diagnoses Pleural effusion on right Procedures CT CHEST W CONTRAST Rylan Echevarria MD [address] [place] [address] Phone: tel: fax: Referral ID Status Reason Start Date Expiration Date V isits Requested Visits Authorized [id number] Authorized 06/28/2024 08/27/[phone] Reason for Visit * Reason Onset Date Comments Referral 06/27/2024 Encounter Details Date Type Department Care Team (Late st Contact Info) Description 06/27/2024 New Patient Triage (DEVELOPMENT TECHNICIAN USE ONLY) [facility]acic [facility]urg [facility] [address] [place], [place] [id number] Noemi Rabago, catheter finisher and inspector Allergies Active Allergy Reactions Criticality Noted Date Comments Spironolactone Other (Please comment) Medium Undesired breast changes/pain documented as of this encounter (statuses as of 06/29/2024) Medications B Complex Vitamins (B COMPLEX 50) [...] 24 Active Additional Information Patient taking differently: [id number], Reported on 06/28/2024 Albuterol Sulfate HFA 108 (90 Base) MCG/ACT [...] Additional Information Patient not taking.Reported on 06/22/2024 Krystal Ellipyohana 100-62.5-25 MCG/ACT Aerosol Powder Breath Activated (Fluticasone-Umec lidinium-Vilanter ol) Inhale 1 Puff by mouth in the morning. NPI : [id number]. 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 09/19/2020 Essential [...] as of this encounter (statuses as of 06/29/2024) Resolved Problems Problem Noted Date Diagnosed Date Resolved Date Aneurysm of aorta 05/17/2023 12/08/2023 Old myocardial infarction 05/17/2023 Tinea pedis of both feet 11/18/2022 Atherosclerosis of pala co ronary artery without angina pectoris 09/15/2022 12/08/2023 Coronary artery disease invo lving coronary bypass graft of pala heart 03/07/2020 12/08/2023 Neuropathic foot ulcer, righ [...] DIS NOS 07/05/2002 hypercholesterol 07/05/2002 12/08/2023 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 Morgan to offer him appt this coming Wednesday07/03/24 at 1pm, 1245pm arrival with Robert GREEN. Dr Echevarria will be available to see him as well. Noemi Rabago RN MSN [facility] Thoracic Surgery Nurse Navigator [facility] * Noemi Rabago RN - 06/29/2024 11:12 AM EST New Patient Triage What is the diagnosis/reason for referral?: pleural effusion Enter order ID here: [id number] Specialty specific documentation: Cardiac and Thoracic Surgery Discussed care plan with patient or proxy?: Yes called Mr. Morgan regarding thoracic surgery referral. He stated that he was in [place] February of this year and ended up hospitalized. He stated that he got COVID again (he had it 2 years ago/ COVID/pneumonia He did state in November he was drained 3 times. He had the right PleurX placed by Dr. Grossman and Dr. Silver and was draining it 3X/week. Cytology at that time was benign. He was draining 4X/week and was getting about 300ml each time. He stated that now the drainage is getting more, 900ml Wednesday06/23/24 and then yesterday 06/26/24 600ml, and it is becoming more bloody. Currently he drains every Wednesday and Wednesday for about 850ml each time. I explained that we usually have patents drain their pleurX daily for a bit after putting it in andexplained pleurodesis to him. He stated "that would get expensive doing it every day." I made him aware that I discussed referral with our [place]. I am ordering a CT chest with contrast, I would like him to drain the pleurx the morning he is having the Ct done, to give us a betterpicture of things with the fluid drained. He verbalized understanding and agreement. I will call him once Ct is scheduled for appt with Dr Echevarria. We will want to see him in person, which he is agreeable to. Communicated with patient on Date (mm/dd/yyyy): 06/27/2024 at [facility] 1320 Noemi Rabago RN MSN [facility] Thoracic Surgery Nurse Navigator [facility] documented in this encounter Plan of Treatment Upcoming Encounters Date Type Department Care Team (Late st Contact Info) Description 07/03/2024 1:00 PM EST Office Visit Thoracic Surg [facility] [address] [place] [address] Corinne Orellana PA-C [address] [place], [place] [phone] 07/17/2024 12:40 PM EST Office Visit Family Practice [facility] [address] [facility] [place] [address] Rohan Mckenzie, DO [address] [facility] [place] [address] 07/27/2024 2:00 PM EST Scheduled Telephone Interventional Pain Center, [address] [address] Rachid Nurse Phone Call Interventional Pain [email or web address] [address] [facility] [place] [address] 08/15/2024 1:00 PM EST Nurse Only Ancillary [facility] [address] [facility] [place] [address] [place]essa Nurse Annual Wellness [facility] [address] [facility] [place] [address] 08/16/2024 12:40 PM EST Office Visit Pulmonary Medicine, [facility] [address] [facility] [place] [address] Dom Grossman MD [address] [place] [address] 09/28/2024 10:00 AM EDT Office Visit Cardiology, [facility] [address] [facility] [place] [address] Karie Swanson PA-C [address] [facility] [place] [address] 12/01/2024 1:30 PM EDT Office Visit Cardiology, [facility] [address] [facility] [place] [address] Cindy Monte CRNP [address] [facility] [place] [address] 01/24/2025 1:15 PM EDT Office Visit Ophthalmology, [place] [address] [place] [address] Abilio Hensley DO [address] [place] [address] 08/16/2025 3:00 PM EST Nurse Only Ancillary [facility] [place] [address] [facility] [place] [address] [place], Nurse Annual Wellness [facility] [address] [facility] [place] [address] Pending Results Name Type Priority Associated Diagnoses Date /Time CT CHEST W CONTRAST Medical Imaging Routine Pleural effusion on right 06/28/2024 1:09 PM EST Scheduled Orders Name Type Priority Associated Diagnoses Orde r Schedule CT CHEST W CONTRAST Medical Imaging Routine Pleural effusion on right Expected: 07/04/2024, Expires: 07/28/2025 CREATININE Lab Routine Pleural effusion on right Expected: 07/04/2024, Expires: 06/27/2025 Scheduled Procedures Name Priority Associated Diagnoses Date/Ti [...] this encounter Medical Devices Implanted Type Area Steam Shovel Engineer Device Identifier Shelf Expiration Date Model / Serial / Lot Lens 17.5 Sn60wf - [id number] Implanted:Qty : 1 on 06/27/2014 by Rich Brooks MD at OR [facility] [address] Right: Eye [employer] 03/18/2019 SN60WF.17 5 / [id number] / Lens 18.0 Sn60wf - [id number] - [id number] Implanted:Qty : 1 on 07/22/2022 by Abilio Hensley DO at OR [facility] [address] Left: Eye MIRIAN : SURGICAL 11/16/2023 SN60WF.1 8 0 / [id number] / Patch Xenosure [id number] - [id number] Implanted:Qty : 1 on 12/24/2022 by Jean Garcia MD [place] [facility] [place]: Femoral Artery [employer] [id number] 08/15/2028 E0.8P8 / [id number] / [id number] Patch Xenosure [id number] - [id number] - [id number] Implanted:Qty : 1 on 07/05/2023 by Jean Garcia MD [place] [facility] [place]: Carotid [employer] [id number] 01/13/2029 E0.8P8 / [id number] / [id number] documented as of this encounter Visit Diagnoses [...] the patient have Health Care Power of Bioinformatics Engineer? No * Full Code Date Activated Date [...] Agen t (per Health Care Power of Bioinformatics Engineer document) Care Teams Supervisor Stage Carpentry Relationship Specialty Start Date End Date Rohan Mckeznie DO [address] [place] [address] PCP - General Family Medicine 05/27/16 documented as of this encounter
--- OUTSIDE RECORDS SUMMARY | 2024-08-04 01:33 | External Medical Summary | Summary of Care ---
Author Name Unknown Organization [facility] [address] [address] Phone [phone] Care Team Providers Care Cardiac Monitor Name Role Phone Rohan Mckenzie DO Primary Care Provider [phone] Encounter Details Date Type Department Care Team (Late st Contact Info) Description 06/30/2024 Orders Only PATIENT PORTAL DO NOT DELETE THIS DEPT USED BY PETER HERNANDEZ [id number] Allergies Active Allergy Reactions Criticality Noted Date Comments Spironolactone Other (Please comment) Medium 4 Undesired breast changes/pain documented as of this encounter (statuses as of 06/30/2024) Medications B Complex Vitamins (B COMPLEX 50) [...] 24 Active Additional Information Patient taking differently: [id number], Reported on 06/28/2024 Albuterol Sulfate HFA 108 (90 Base) MCG/ACT Inhalation Aerosol SolutionIndicatio ns:Pulmonary fibrosis (HCC),Lung nodule,PVD (peripheral vascular disease) ([facility]) TAKE 2 PUFFS BY MOUTH EVERY 6 HOURS NEEDED FOR WHEEZE 18 g 3 09/13/19 24 Active Eplerenone 25 MG Oral Tablet (Inspra)Indicatio ns:Ischemic cardiomyopathy,Ac helga systolic congestive heart failure, NYHA class 1 ([facility]) Take 1 Tablet by mouth in the [...] by mouth in the morning. NPI : [id number]. 90 Blister Dosing Unit 3 06/26/20 24 Active documented as of this encounter (statuses as of 06/30/2024) Active Problems Problem Noted Date Diagnosed Date [...] as of this encounter (statuses as of 06/30/2024) Resolved Problems Problem Noted Date Diagnosed Date Resolved Date Aneurysm of aorta 05/17/2023 12/08/2023 Old myocardial infarction 05/17/2023 Tinea pedis of both feet 11/18/2022 Atherosclerosis of koi co ronary artery without angina pectoris 09/15/2022 12/08/2023 Coronary artery disease invo lving coronary bypass graft of koi heart 03/07/2020 12/08/2023 Neuropathic foot ulcer, righ [...] DIS NOS 07/05/2002 hypercholesterol 07/05/2002 12/08/2023 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 Answer Date of Assessment Author No 07/05/2023 2:58 PM EST Hilario Rapp RN * Are you blind or do [...] 1:00 PM EST Office Visit [facility] [address] [place] [address] Corinne Orellana PA-C [address] [place] [address] 07/17/2024 12:40 PM EST Office Visit Family Practice [facility] [address] [place] [address] Rohan Mckenzie, DO [address] [place] [address] 07/27/2024 2:00 PM EST Scheduled Telephone [facility], [facility] [address] [place] [address] Rachid Nurse Phone Call Interventional Pain [facility] [address] [place] [address] 08/15/2024 1:00 PM EST Nurse Only Ancillary [facility] [address] [place] [address] [place], Nurse [facility] [address] [place] [address] 08/16/2024 12:40 PM EST Office Visit Pulmonary Medicine, [facility] [address] [facility] [place] [address] Dom Grossman MD [address] [place] [address] 09/28/2024 10:00 AM EDT Office Visit Cardiology, [facility] [address] [facility] [place] [address] Karie Swanson, [place] [address] [place] [address] 12/01/2024 1:30 PM EDT Office Visit Cardiology, [facility] [address] [place] [address] Cindy Monte CRNP [address] [facility] [place] [address] 01/24/2025 1:15 PM EDT Office Visit Ophthalmology, [place] [address] [place] [address] Abilio Hensley DO [address] [place] [address] 08/16/2025 3:00 PM EST Nurse Only Ancillary [facility] [address] [place] [address] Vanessa, Nurse [facility] [address] [place] [address] Scheduled Procedures Name Priority Associated Diagnoses Date/Ti [...] this encounter Medical Devices Implanted Type Area Patrol Officer Device Identifier Shelf Expiration Date Model / Serial / Lot Lens 17.5 Sn60wf - [id number] Implanted:Qty : 1 on 06/27/2014 by Rich Brooks MD at OR [facility] Right: Eye [employer] 03/18/2019 SN60WF.17 5 / [id number] / Lens 18.0 Sn60wf - [id number] - [id number] Implanted:Qty : 1 on 07/22/2022 by Abilio Hensley DO at OR [facility] Left: Eye MIR[employer] : SURGICAL 11/16/2023 SN60WF.1 8 0 / [id number] / Patch Xenosure [id number] - [id number] Implanted:Qty : 1 on 12/24/2022 [place] Jean Garcia [place] [facility] [place]: Femoral Artery [employer] [id number] 08/15/2028 E0.8P8 / [id number] / [id number] Patch Xenosure [id number] - [id number] - [id number] Implanted:Qty : 1 on 07/05/2023 by Jean Garcia MD [place] [facility] Left: Carotid [employer] [id number] 01/13/2029 E0.8P8 / [id number] / [id number] documented as of this encounter Advance Directives [...] the patient have Health Care Power of Patrol Officer? No * Full Code Date Activated Date [...] Agen t (per Health Care Power of Patrol Officer document) Care Teams Cardiac Monitor Relationship Specialty Start Date End Date Rohan Mckenzie DO [address] [place] [address] PCP - General Family Medicine 05/27/16 documented as of this encounter
--- OUTSIDE RECORDS SUMMARY | 2024-08-04 01:33 | External Medical Summary | Summary of Care ---
Author Name Unknown Organization [facility] Address [address] [place] [address] Phone [phone] Care Team Providers Care Upper Leather Sorter Name Role Phone Rohan Mckenzie DO Primary Care Provider [phone] Reason for Visit * Reason Comments NEW PATIENT * Evaluate & Treat - Unlimited Visits (Within 10 days (routine)) - Authorized Specialty Diagnoses / Procedures Referred By Contact Referred To Contact Thoracic and Cardiac Surgery / Cardiothoracic Surgery Diagnoses Pleural effusion on right Dom Grossman [facility] [address] [facility] [address] Phone: tel: fax: Referral ID Status Reason Start Date Expiration Date Visits Requested Visits Authorized [id number] Authorized Specialty Services Required 06/26/[phone] Encounter Details Date Type Department Care Team (Late st Contact Info) Description 07/03/2024 1:00 PM EST [facility] [address] [place] [address] Corinne Orellana PA-C [address], [place] [id number] Pleural effusion on right* Allergies Active Allergy Reactions Criticality Noted Date Comments Spironolactone Other (Please comment) Medium 4 Undesired breast changes/pain documented as of this encounter (statuses as of 07/03/2024) Medications B Complex Vitamins (B COMPLEX 50) [...] 24 Active Additional Information Patient taking differently: [id number], Reported on 07/03/2024 Albuterol Sulfate HFA 108 [...] by mouth in the morning. NPI : [id number]. 90 Blister Dosing Unit 3 06/26/20 24 Active documented as of this encounter (statuses as of 07/03/2024) Active Problems Problem Noted Date Diagnosed Date [...] artery disease of n ative artery of lovelock heart with stable angina pectoris 09/19/2020 Essential [...] as of this encounter (statuses as of 07/03/2024) Resolved Problems Problem Noted Date Diagnosed Date Resolved Date Aneurysm of aorta 05/17/2023 12/08/2023 Old myocardial infarction 05/17/2023 Tinea pedis of both feet 11/18/2022 Atherosclerosis of lovelock co ronary artery without angina pectoris 09/15/2022 12/08/2023 Coronary artery disease invo lving coronary bypass graft of lovelock heart 03/07/2020 12/08/2023 Neuropathic foot ulcer, righ [...] DIS NOS 07/05/2002 hypercholesterol 07/05/2002 12/08/2023 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 Not on file Not on file Not on file documented as of this encounter Last Filed Vital Signs Vital Sign Reading Time Taken Comments Blood Pressure 128/68 07/03/2024 1:15 PM EST Pulse 60 07/03/2024 1:15 PM EST Temperature - - Respiratory Rate - - Oxygen Saturation 96% 07/03/2024 1:15 PM EST Inhaled Oxygen Concentration - - Weight 113.6 kg (250 lb 8 oz) 07/03/2024 1:15 PM EST Height 188 cm (6' 2") 07/03/2024 1:15 PM EST Body Mass Index 32.16 07/03/2024 1:15 PM EST documented in this encounter Functional [...] Entry Date Author No 07/05/2023 2:58 PM EST Hilario Rapp RN documented in this encounter Patient Instructions * Patient Instructions* Corinne Orellana PA-C - 07/03/2024 3:12 PM EST Wound Care Instructions: Keep dressing over catheter site for 24 hours You may shower and then change dressing after 24 hours You may continue to take your Plavix Please hold pressure over the site if you notice bleeding Please call with any questions/concerns documented in this encounter H&P Notes * Corinne Orellana PA-C - 07/03/2024 1:00 PM EST THORACIC SURGERY CLINIC @ [facility] 07/03/2024 REFERRING PROVIDER: Dom Grossman MD CC: Pleural effusion HPI: Brandan Morgan is a 68 year old male presenting for evaluation and management of recurrent right sided pleural effusion status post tunneled pleural catheter placement. Mr. Morgan has a history of COVID pneumonia requiring hospitalization in late 2022. A small right pleural effusion was noted on CXR 04/2023. He was then referred to Pulmonology 09/2023 for management of persistent cough and nocturnal oxygen requirement. 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 He continued to follow with Pulmonology. He underwent a right thoracentesis by Dr. Silver for 1500 mL. Fluid cytology was benign. He then presented to [facility] ED c/o SOB and then underwent a second right sided thoracentesis for 1600 mL with fluidcytology benign. An Ask-A-Doc was sent to Pulmonology for advice on management of his recurrent effusion in December. A right sided tunneled pleural catheter was placed by Dr. Silver 12/23/2023. Mr. Gipson was originally draining 3-4 times per week for about 300 mL each time. He is now draining twice weekly for 600-900 mL. He noted that his drainage has become more "bloody" since his catheter was placed in December. He would drain more frequently but the cost of the bottles is 150-160 dollars per box of ten. He noted littleto no relief of symptoms after draining his catheter. 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 As stated previously, he is a retired from working in [employer]. He has a 40 pack-year smoking history but quit 9 years ago. Allergies: Review of patient's allergies indicates: Allergen Reactions Spironolactone Other (Please comment) Undesired breast changes/pain Current Outpatient Medications Medication Sig Dispense Refill B Complex Vitamins (B COMPLEX 50) TABS Take 1 Tablet by mouth in the morning. Misc. Devices [facility] Custom molded extra depth shoes with accommodative inserts - Offloading of [id number] metatarsal head Dx: neuropathic ulceration right foot [...] DAY IN THE MORNING 90 Tablet 3 Sacubitril-Valsartan 97-103 MG Oral Tablet (Entresto) Take [...] 1 Capsule before bedtime. 60 Capsule 3 Arexvy 120 MCG/0.5ML Intramuscular Suspension Reconstituted (RSV PreF3 Vac Recomb Adjuvanted) Inject into a large muscle. 1 Each 0 Respiratory Therapy Supplies Device Use as directed. PleurX catheter, right Azithromycin 250 MG Oral Tablet (Zithromax Z-Perry) Please take 500 mg by mouth on day one, followed by 250 mg by mouth for four days. 6 Tablet 0 Trelegy Ellipta 100-62.5-25 MCG/ACT Aerosol Powder Breath Activated (Hnsgqeuivbd-Hevrhxeuumlw-Mcqksiwsje) Inhale 1 Puff by mouth in the morning. NPI : [id number]. 90 Blister Dosing Unit 3 HYDROcodone-Acetaminophen 5-325 MG Oral Tablet Take 1 Tablet by mouth every 6 hours as needed for Pain, Moderate. (Patient not taking: Reported on 07/03/2024) 20 Tablet 0 Acetaminophen 325 MG Oral Tablet (Tylenol) Take 3 Tablets by mouth daily as needed. (Patient not taking: Reported on 07/03/2024) methylPREDNISolone 4 MG Oral Tablet Therapy Pack (Medrol Dosepack) follow package directions (Patient not taking: Reported on 07/03/2024) 21 Tablet 0 No current facility-administered medications for this visit. Patient Active Problem List Diagnosis History of colonic polyps Gouty arthropathy Dyslipidemia, goal LDL below 70 Chronic venous stasis dermatitis S/P angioplasty with stent Coronary artery disease of lovelock artery of lovelock heart with stable angina pectoris (HCC) Essential [...] function (HCC) Foraminal stenosis of lumbar region Past Medical History: Diagnosis Date Benign neoplasm of colon 01/06/2013 COLONOSCOPY FLEXIBLE PROXIMAL DIAGNOSTIC performed by Eloy Wilder MD at ENDOSCOPY [facility], NO RESIDUAL POLYP TISSUE REPEAT COLONOSCOPY [...] polyps 01/06/2013 normal no polyps, benign mucosa Pleural effusion post inferior wall [place] 12/23/1996 Past Surgical History: Procedure Laterality Date CARDIAC ANGIOPLASTY, PERCUTANEOUS, 1 ARTERY Right 03/07/2020 PTCA, CARDIAC ANGIOPLASTY, PERCUTANEOUS, 1 ARTERY performed by Johny Schmidt DO at [facility] COLONOSCOPY THRU STOMA, W/BIOPSY 03/28/2010 polyps--hyperplastic tissue repeat in 2 yrs COLONOSCOPY W/ BIOPSY (RECTUM) 03/28/2009 adenoma repeat in 1 yr COLONOSCOPY W/ LESION REMOVAL, SNARE 08/12/2007 villous adenoma, repeat 6 months COLONOSCOPY W/ LESION REMOVAL, SNARE 02/10/2008 repeat in 1 yr COLONOSCOPY, DIAGNOSTIC (RECTUM) 01/06/2013 COLONOSCOPY FLEXIBLE PROXIMAL DIAGNOSTIC performed by Eloy Wilder MD at ENDOSCOPY [facility], NO RESIDUAL POLYP TISSUE REPEAT COLONOSCOPY IN 5 YEARS COLONOSCOPY, DIAGNOSTIC (RECTUM) 01/12/2018 adenomatous & hyperplastic polyps, repeat 5 yrs/COLONOSCOPY FLEXIBLE PROXIMAL DIAGNOSTIC performed by Eloy Wilder MD at ENDOSCOPY [facility] CORONARY ARTERY DILATION, [place] age 41 inferior wall [place] age 41, 1996, angioplasty, stent at [facility] ENDART COMMON FEMORAL Left 12/24/2022 COMMON FEMORAL ENDARTERECTOMY performed by Jean Garcia MD at [place] [facility] EXCISION OF MOUTH FLOOR LESION Right 08/09/2015 EXCISION LESION FLOOR OF MOUTH performed by Rush Landaverde DO at [place] [facility] ILIAC ART. REVASC W/ STENT+ANGIOPLASTY Left 12/24/2022 ILIAC ARTERY REVASC W/ STENT+ANGIOPLASTY performed by Jean Garcia MD at OR [facility] INFORMATION Right R ankle fx repair w/ hardware. INJECT DX/THER SUBSTANCE INTERLAMINAR LUMBAR/SACRAL W IMAGE GUIDE 05/20/2022 INJECTION SPINE LUMBAR OR SACRAL performed by Samuel Jeff Simon DO at OR [facility] INJECT DX/THER SUBSTANCE INTERLAMINAR LUMBAR/SACRAL W IMAGE GUIDE 09/09/2022 INJECTION SPINE LUMBAR OR SACRAL performed by Samuel Simon DO at OR [facility] IR ARTERIOGRAM EXTREMITY UNILATERAL Left 12/24/2022 IMAGING SUPERVISION & INTERPRETATION EXTREMITY UNILATERAL performed by Jean Garcia MD at[facility] L-/S-SPINE PARAVERTEBRAL FACET INJ,1 LEVEL 01/14/2024 L-/S-SPINE PARAVERTEBRAL FACET INJ, 1 LEVEL performed by Tal Medina DO at OR [facility] L-/S-SPINE PARAVERTEBRL FACET INJ,2 LEVELS 01/14/2024 L-/S-SPINE PARAVERTEBRAL FACET INJ, 2 LEVELS performed by Tal Medina DO at OR [facility] LUMBAR / SACRAL EPIDURAL, SINGLE LEVEL Bilateral 06/22/2024 INJECTION TRANSFORAMINAL EPIDURAL LUMBAR OR SACRAL performed by Tal Medina DO at OR [facility] PELVIS/HIP JOINT SURGERY NEC Left 09/17/2021 UNLISTED PROCEDURE PELVIS OR HIP JOINT performed by Micky Rodriguez DO at OR [facility] PELVIS/HIP JOINT SURGERY NEC Right 12/17/2021 HIP CORE DECOMPRESSION performed by Micky Rodriguez DO at OR [facility] REMOVAL OF APPENDIX age 19 [place] REMOVAL OF NECK LYMPH NODES Right 08/09/2015 SUPRAHYOID LYMPHADENECTOMY performed by Rush Landaverde DO at [place] [facility] REMOVAL OF SUBMAXILLARY GLAND Right 08/09/2015 EXCISION SUBMANDIBULAR (SUBMAXILLARY) GLAND performed by Rush Landaverde DO at [place] [facility] REMOVE CATARACT, INSERT LENS PROSTH Right 06/27/2014 EXTRACAPSULAR CATARACT REMOVAL WITH INTRAOCULAR LENS performed by iRch Broosk MD at OR [facility] REMOVE CATARACT, INSERT LENS PROSTH Left 07/22/2022 LEFT EXTRACAPSULAR CATARACT REMOVAL WITH INTRAOCULAR LENS performed by Abilio Hensley DO at OR [facility] SKIN SPLIT GRAFT, FACE/NECK/EARS Right 08/09/2015 SPLIT GRAFT FACE SCALP ETC LESS THAN 100SQ CM performed by Rush Landaverde DO at [place] [facility] THROMBOENDARECTOMY W/PATCH,NECK INCISION Left 07/05/2023 CAROTID ENDARTERECTOMY performed by Jean Garcia MD at [place] [facility] Social History Socioeconomic History Marital status: Spouse name: Not on file Number of children: 2 Years of education: Not on file Highest education level: Not on file Occupational History 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 Living in [facility] since Lives with for 40 years. Retired [employer] industry Social Needs Financial Resource Strain: Low Risk (06/28/2024) Financial Resource Strain Do you have any trouble paying for your medications, or do you think you might in the future? (Adult - for ages 18 years and over): No Does your family have trouble paying for medicine? (Household - for ages 0-17 years): Not on file Food Insecurity: No Food Insecurity (06/28/2024) Food Insecurity Do you need food for this week? (Adult - for ages 18 years and over): No Are you able to get enough food for your family? (Household - for ages 0-17 years): Not on file Does your family need food this week? (Household - for ages 0-17 years): Not on file Do you always have enough food for your family? (Household - for ages 0-17 years): Not on file Transportation Needs: No Transportation Needs (06/28/2024) Transportation Needs Do you have trouble getting a ride to medical visits or work? (Adult - for ages 18 years and over):Never True Does your family have a hard time getting a ride to doctors visits? (Household - for ages 0-17 years): Not on file Has lack of transportation kept you from medical appointments, meetings, work, or from getting things needed for daily living? Check all that apply. (Adult - for ages 18 years and over): No Do you (or your family) have trouble finding or paying for a ride (transportation)? (Household - for ages 0-17 years): Not on file Social Connections: Socially Integrated (06/28/2024) Social Connections How often do you feel lonely or isolated from those around you? (Adult - for ages 18 years and over): Never Housing Stability: Low Risk (06/28/2024) Housing Stability Do you currently live in a retirement or have no steady place to sleep at night? (Adult - for ages 18 years and over): No Do you think you are at risk of becoming homeless? (Adult - for ages 18 years and over): No Does your family worry about paying for your home or becoming homeless? (Household - for ages 0-17 years): Not on file Are you homeless or worried that you might be in the future? (Adult - for ages 18 years and over): No Are you (or your family) homeless or worried that you might be in the future? (Household - for ages0-17 years): Not on file Family History Problem Relation Name Age of Onset Other (anemia) Mother Heart Disorder Father Stroke Grandmother (Paternal) Cancer None Diabetes None Thyroid Disorder None Hypertension None Eye Problems None denies FH: AMD, RD's, GLAUCOMA, BLINDNESS REVIEW OF SYSTEMS: Pertinent positives noted in HPI, otherwise negative. PHYSICAL EXAM: Filed Vitals: 07/03/24 1315 BP: 128/68 Pulse: 60 SpO2: 96% Weight: 113.6 kg (250 lb 8 oz) Height: 1.88 m (6' 2") Body mass index is 32.16 kg/m. Constitutional: no acute distress HEENT: normal: normocephalic, atraumatic Eyes: sclera and conjunctiva normal Neck: normal range of motion CV: normal rate, normal rhythm Chest: normal respiratory effort, diminished breath sounds right base. Right tunneled pleural catheter site erythematous and very tender to palpation, catheter cuff exposed. Abdomen: soft, non distended Skin: warm, dry, intact: Neuro: alert, oriented to person, place, and time, normal mental status exam Procedure: Removal of right tunneled pleural catheter The area was prepped and draped in the usual fashion. The catheter cuff was easily palpated and located near the exit site. The right thorax was exposed and the skin prepped. The skin and deep tissuesurrounding the pleural catheter cuff was anesthestized with 10 mL of 1% lidocaine. The catheter cuff was dissected free from the surrounding tissue. The pleural catheter was removed in its entirety and an occlusive dressing applied. The patient tolerated the procedure well. IMAGING: I personally interpreted the images of the following studies: 06/28/2024 CT Chest: -- right tunneled pleural catheter in place and within thoracic cavity -- well drained right sided pleural effusion with trace fluid remaining -- no obvious significant pleural thickening, nodules -- slightly prominent mediastinal LNs - likely reactive ASSESSMENT/PLAN: 1. New patient referral from Dom Grossman MD for evaluation and management of persistent right pleural effusion s/p right tunneled pleural catheter placement. 2. Recent CT imaging and differential diagnosis reviewed with Mr. Morgan and his . 3. Catheter cuff was visibile with surrounding erythema and tenderness on physical exam today. As this could be a nidus for infection, the decision was made to remove the catheter in clinic today. Prior to removal it was drained for 75 mL of serosanguinous fluid which was sent for cytology. 4. Catheter was removed without difficulty. Patient instructed to continue occlusive dressing at site for 24 hours, may then shower after 24 hours and replace dressing with gauze and paper tape/Band Aid dressing as needed. Avoid soaking area in water until completely healed. 5. Patient and instructed to monitor symptoms for fluid recurrence and call with any questions/concerns. Will trial him without the catheter and discussed that it may have provided some pleurodesis effect preventing an excessive amount of fluid from re accumulating. We will obtain an OP CXR Saturday 07/07 and call Mr. Morgan to review imaging. 6.I spent a total of 40-54 minutes (exact time 45 mins) on the date of service in preparation, delivery, and documentation of the care provided to Brandan Morgan excluding any time spent in the performance of separately billed services or time spent by another provider/QHP. Corinne Orellana PA-C Physician Gage Designer, Thoracic Surgery Thoracic Surg [facility] [address] [address] Cosigned by Rylan Echevarria MD at 07/03/2024 5:12 PM EST Associated attestation - Rylan Echevarria MD - 07/03/2024 5:12 PM EST I have reviewed the advanced practitioner's documentation on the date of service referenced in note, and I agree with, and take responsibility for the plan of care. Chronic right pleural effusion with volume loss. Effusion first noted on 05/17/2023 CXR and then progressively enlarged on May [address] imaging. A posterior right PleurX catheter was placed by Dr. Silver in December of this year (2023). He felt better with the first couple of thoracenteses performed by our IR colleagues, but has never noticed much in the way of clinical change when draining the pleural catheter. He doesn't notice any major dyspnea. New CT imaging is negative for any residual significant residual effusion (he drained the catheter just prior to undergoing the CT) as well as negative for any obvious signs of malignancy such as pleural nodules, lung nodules, or lymphadenopathy. Prior PET/CT imaging this year was also negative. Two pleural cytology studies were negative for malignancy. Although cancer remains in the differentialdiagnosis, it currently seems unlikely. I am more prone to believe the underlying etiology is heartfailure, although it only uncommonly produces a unilateral effusion such as in this case. Management options reviewed with Brandan and his , Noelle. The current catheter is barely within the chest wall (polyester cuff is partially exposed) and there is some surrounding erythema (not severe, but obvious, along with tenderness to palpation). My initial recommendation, therefore, is to remove the catheter to prevent any additional risk of infection (if not present already). The posterior location is not at all ideal and does increase the risk of pressure sores. Next steps: PleurX catheter removed today in the office. Call us with any new wound concerns. Observe clinically for dyspnea. We will call him later this week for an update. Will also follow with serial CXR's for any recurrence of the pleural effusion. Consider surgical pleural biopsies and/or replacement of a tunneled pleural catheter only if necessary based upon clinical and radiographic findings. Maintain cardiology follow-up with Dr. Mcclain's office given the know heart failure. All questions answered to apparent satisfaction. I spent a total of Greater than 55 mins (exact time 60 mins) on the date of service in preparation,delivery, and documentation of the care provided to Brandan Morgan excluding any time spent in the performance of separately billed services or time spent by another provider/QHP. documented in this encounter Plan of Treatment Upcoming Encounters Date Type Department Care Team (Late st Contact Info) Description 07/17/2024 12:40 PM EST Office Visit [facility] [place] [address] [facility] [place] [address] Rohan Mckenzie, [address] [place] [address] [address] 07/27/2024 2:00 PM EST Scheduled Telephone Interventional Pain Center, [facility] [address] [facility] [place] [address] Nurse Rachid Phone Call Interventional Pain [place] [address] [place] [address] 08/15/2024 1:00 PM EST Nurse Only Ancillary [facility] [address] [place] [address] [place], Nurse [facility] [address] [place] [address] 08/16/2024 12:40 PM EST Office Visit Pulmonary Medicine, [facility] [address] [facility] [place] [address] Dom Grossman MD [address] [place] [address] 09/28/2024 10:00 AM EDT Office Visit Cardiology, [facility] [address] [facility] [place] [address] Karie Swanson PA-C [address] [facility] [place] [address] 12/01/2024 1:30 PM EDT Office Visit Cardiology, [facility] [address] [facility] [place] [address] Cindy Monte CRNP [address] [facility] [place] [address] 01/24/2025 1:15 PM EDT Office Visit Ophthalmology, [place] [address] [address] Abilio Hensley DO [address] [address] 08/16/2025 3:00 PM EST Nurse Only Ancillary [facility] [address] [place] [address] Vanessa Nurse [facility] [address] [facility] [place] [address] Scheduled Orders Name Type Priority Associated Diagnoses Orde r Schedule XR CHEST 1 VIEW Medical Imaging Routine Pleural effusion on right Ordered: 07/03/2024 CYTOLOGY Pathology Routine Pleural effusion on right Expected: 07/03/2024, Expires: 08/03/2025 Scheduled Procedures Name Priority Associated Diagnoses Date/Ti [...] this encounter Medical Devices Implanted Type Area School Based Therapist Device Identifier Shelf Expiration Date Model / Serial / Lot Lens 17.5 Sn60wf - [id number] Implanted:Qty : 1 on 06/27/2014 by Rich Brooks MD at OR [facility] Right: Eye [employer] 03/18/2019 SN60WF.17 5 / [id number] / Lens 18.0 Sn60wf - [id number] - [id number] Implanted:Qty : 1 on 07/22/2022 by Abilio Hensley DO at OR [facility] Left: Eye MIRIAN : SURGICAL 11/16/2023 SN60WF.1 8 0 / [id number] / Patch Xenosure [id number] - [id number] Implanted:Qty : 1 on 12/24/2022 by Jean Garcia MD [place] [facility] [place]: Femoral Artery [employer] [id number] 08/15/2028 E0.8P8 / [id number] / [id number] Patch Xenosure [id number] - [id number] - [id number] Implanted:Qty : 1 on 07/05/2023 by Jean Garcia MD [place] [facility] [place]: Carotid [employer] [id number] 01/13/2029 E0.8P8 / [id number] / [id number] documented as of this encounter Visit Diagnoses [...] the patient have Health Care Power of Orthopedic Shoe Maker? No * Full Code Date Activated [...] Agents on File Name Relationship Healthcare Agent [facility] p Communication Noelle Morgan Spouse Health Care Agen t (per Health Care Power of Orthopedic Shoe Maker document) Care Teams Upper Leather Sorter Relationship Specialty Start Date End Date Rohan Mckenzie DO [address] [place] [address] PCP - General Family Medicine 05/27/16 documented as of this encounter
--- OUTSIDE RECORDS SUMMARY | 2024-08-04 01:33 | External Medical Summary | Summary of Care ---
Author Name Unknown Organization [facility] [address] [place] [address] Phone [phone] Care Team Providers Care Manager Domestic Name Role Phone Rohan Mckenzie DO Primary Care Provider [phone] Encounter Details Date Type Department Care Team (Late st Contact Info) Description 07/04/2024 Result Scan Unspecified Department Víctor Mcclain MD [address] [place], [place] [id number] <No scans attached> Allergies Active Allergy Reactions Criticality Noted Date Comments Spironolactone Other (Please comment) Medium Undesired breast changes/pain documented as of this encounter (statuses as of 07/04/2024) Medications B Complex Vitamins (B COMPLEX 50) [...] 24 Active Additional Information Patient taking differently: [id number], Reported on 07/03/2024 Albuterol Sulfate HFA 108 [...] Capsule before bedtime. 60 Capsule 3 05/11/20 Active Respiratory Therapy Supplies Device Use as [...] by mouth in the morning. NPI : [id number]. 90 Blister Dosing Unit 3 06/26/20 24 Active documented as of this encounter (statuses as of 07/04/2024) Active Problems Problem Noted Date Diagnosed Date [...] artery disease of n ative artery of [place] heart with stable angina pectoris 09/19/2020 Essential [...] as of this encounter (statuses as of 07/04/2024) Resolved Problems Problem Noted Date Diagnosed Date Resolved Date Aneurysm of aorta 05/17/2023 12/08/2023 Old myocardial infarction 05/17/2023 Tinea pedis of both feet 11/18/2022 Atherosclerosis of [place] co ronary artery without angina pectoris 09/15/2022 12/08/2023 Coronary artery disease invo lving coronary bypass graft of [place] heart 03/07/2020 12/08/2023 Neuropathic foot ulcer, righ [...] wall [place], [place] [facility] 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 [address] [place] [address] 08/15/2024 1:00 PM EST Nurse Only Ancillary [facility] [address] [place] [place] [address] [place], Nurse Annual Wellness [facility] [address] [place] [place] [address] 08/16/2024 12:40 PM EST Office Visit Pulmonary Medicine, [facility] [address] [place] [address] Dom Grossman MD [address] [place] [address] 09/28/2024 10:00 AM EDT Office Visit Cardiology, [facility] [address] [facility] [address] Karie Swanson [facility]-C [address] [facility] [address] 12/01/2024 1:30 PM EDT Office Visit Cardiology, [facility] [address] [facility] [place] [address] Cindy Monte CRNP [address] [place] [address] [place] [address] 08/16/2025 3:00 PM EST Nurse Only Ancillary [facility] [address] [address] [place], Nurse Annual Wellness [facility] [address] [facility] [place] [address] Scheduled Procedures Name Priority Associated Diagnoses Date/Ti [...] this encounter Medical Devices Implanted Type Area Burglar Alarm Installer Device Identifier Shelf Expiration Date Model / Serial / Lot Lens 17.5 Sn60wf - [id number] Implanted:Qty : 1 on 06/27/2014 by Rich Brooks MD at OR [facility] Right: Eye [employer] 03/18/2019 SN60WF.17 5 / [id number] / Lens 18.0 Sn60wf - [id number] - [id number] Implanted:Qty : 1 on 07/22/2022 by Abilio Hensley DO at [facility] Left: Eye MIRIAN : SURGICAL 11/16/2023 SN60WF.1 8 0 / [id number] / Patch Xenosure 0.2xgs1lr - [id number] Implanted:Qty : 1 on 12/24/2022 by Jean Garcia MD [place] [facility] Left: Femoral Artery [employer] [id number] 08/15/2028 E0.8P8 / [id number] / [id number] Patch Xenosure 0.7gvq3it - [id number] - [id number] Implanted:Qty : 1 on 07/05/2023 by Jean Garcia MD [place] [facility] Left: Carotid [employer] [id number] 01/13/2029 E0.8P8 / [id number] / [id number] documented as of this encounter Procedures Procedure Name Priority Date/Time Associated Diagnosis Comments CARDIOLOGY SCANNED RESULT 07/04/2024 documented in this encounter Results * CARDIOLOGY SCANNED RESULT (07/04/2024) 07/04/2024 Víctor Mcclain MD OTHER Final Result documented in this encounter Advance Directives * [...] the patient have Health Care Power of Wood Boatbuilder? No * Full Code Date Activated Date [...] Agen t (per Health Care Power of Wood Boatbuilder document) Care Teams Manager Domestic Relationship Specialty Start Date End Date Rohan Mckenzie DO [facility] [place] [address] PCP - General Family Medicine 05/27/16 documented as of this encounter
--- OUTSIDE RECORDS SUMMARY | 2024-08-04 01:33 | External Medical Summary | Summary of Care ---
Author Name Unknown Organization [facility] Address [address] [facility] [place] [address] Phone [phone] Care Team Providers Care Bath Mixer Name Role Phone Rohan Mckenzie DO Primary Care Provider [phone] Reason for Visit * Auth/Cert Specialty Diagnoses / Procedures Referred By Contac t Referred To Contact Diagnoses Spinal stenosis of lumbar region with neurogenic claudication Spinal stenosis of lumbar region with neurogenic claudication [M48.062] Procedures INJECT DX/THER SUBSTANCE INTERLAMINAR LUMBAR/SACRAL W IMAGE GUIDE LUMBAR / SACRAL EPIDURAL, SINGLE LEVEL INJECTION TRANSFORAMINAL EPIDURAL LUMBAR OR SACRAL Tal Medina DO [address] [place] [address] Phone: tel: fax: OR OS, Operating Room [address] [address] Phone: tel: fax: Referral ID Status Reason Start Date Expiration Date Visits Re quested Visits Authorized [id number] Encounter Details Date Type Department Care Team (Latest Contact Info) Description 06/22/2024 11:37 AM EST - 06/22/2024 12:59 PM EST Hospital Encounter OR [facility], Operating Room [facility] [address] [place] [phone] Tal Medina DO [address] [place] [address] Discharge Disposition: Home - Self Care Allergies Active Allergy Reactions Criticality Noted Date Comments Spironolactone Other (Please comment) Medium 4 Undesired breast changes/pain documented as of this encounter (statuses as of 06/23/2024) Medications B Complex Vitamins (B COMPLEX 50) [...] 24 Active Additional Information Patient taking differently: [id number], Reported on 06/22/2024 Albuterol Sulfate HFA 108 (90 Base) MCG/ACT Inhalation Aerosol SolutionIndicatio ns:Pulmonary fibrosis (HCC),Lung nodule,PVD (peripheral vascular disease) (HCC) TAKE 2 PUFFS BY MOUTH EVERY 6 HOURS NEEDED FOR WHEEZE 18 g 3 09/13/19 24 Active Eplerenone 25 MG Oral Tablet (Inspra)Indicatio ns:Ischemic cardiomyopathy,Ac [place] systolic congestive heart failure, NYHA class 1 [...] before bedtime. 60 Capsule 3 05/11/20 Active Trelegy Ellipta 100-62.5-25 MCG/ACT Aerosol Powder Breath Activated (Fluticasone-Umec lidinium-Vilanter ol) Inhale 1 Puff by mouth in the morning. NPI : [id number]. 90 Blister Dosing Unit 3 05/30/20 Active Additional Information Patient not taking.Reported on 06/22/2024 Respiratory Therapy Supplies Device Use as directed. [...] Additional Information Patient not taking.Reported on 06/22/2024 documented as of this encounter (statuses as of 06/23/2024) Active Problems Problem Noted Date Diagnosed Date [...] artery disease of n ative artery of [place] heart with stable angina pectoris 09/19/2020 Essential [...] as of this encounter (statuses as of 06/23/2024) Resolved Problems Problem Noted Date Diagnosed Date Resolved Date Aneurysm of aorta 05/17/2023 12/08/2023 Old myocardial infarction 05/17/2023 Tinea pedis of both feet 11/18/2022 Atherosclerosis of [place] co ronary artery without angina pectoris 09/15/2022 12/08/2023 Coronary artery disease invo lving coronary bypass graft of [place] heart 03/07/2020 12/08/2023 Neuropathic foot ulcer, righ [...] DIS NOS 07/05/2002 hypercholesterol 07/05/2002 12/08/2023 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 documented as of this encounter (statuses as of 06/23/2024) Immunizations Name Administration Dates Next Due COVID-19 mRNA, LNP-s, No Pre serve, 2-Dose Series (ams AG) 05/27/2021,10/10/2020,09/12/2020 Covid-19, Mrna, Lnp-s, Pf, B ivalent, 30 Mcg, IM, 12 yrs and above (ams AG) 06/23/2022 Pneumococcal Conjugate Vacci ne, 20-valent ([id number]) 07/03/2022 Pneumococcal Polysaccharide PPV23 (Pneumovax) 06/17/2021,04/01/2006 RSV [...] No 08/11/2023 Does the household have a [facility] source [facility] income? 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 Not on file Not on file Not on file documented as of this encounter Last Filed Vital Signs Vital Sign Reading Time Taken Comments Blood Pressure 125/87 06/22/2024 12:45 PM EST Pulse 60 06/22/2024 12:45 PM EST Temperature 36.5 C (97.7 F) 06/22/2024 12:[address] Respiratory Rate 16 06/22/2024 12:45 PM EST Oxygen Saturation 93% 06/22/2024 12:45 PM EST Inhaled Oxygen Concentration - - Weight 112 kg (247 lb) 06/22/2024 11:47 AM EST Height 188 cm (6' 2") 06/22/2024 11:47 AM EST Body Mass Index 31.71 06/22/2024 11:47 AM EST documented in this encounter Functional [...] Hilario Spaulding RN documented in this encounter Discharge Instructions * Discharge Instr - AVS* Tal Medina DO - 06/22/2024 12:16 PM EST [facility] [address] [place] [address] [place] [address] Discharge Date: 06/22/2024 You may call [facility] at [phone] during business hours. For after-hours emergencies call 911. Your attending physician at the time of your discharge was: Tal Medina DO [address] [facility] [place] [address] The information below provides you with the instructions and the list of medications you need to betaking following discharge from the hospital. If you have any questions, please ask before leaving.Please carry this letter with you when you see your doctor in the clinic. Diet: Resume your normal diet If you are diabetic, follow your blood sugars closely for next 2-3 days as they are likely to be elevated. If you are having difficulty controlling your blood sugars call your family doctor or the physician that treats your diabetes. Activity: Do not engage in strenuous activity today Resume your normal activities tomorrow Do not soak in water for 24 hours. No swimming, hot tub or bath but showering is allowed. Do not use heat on the injection site for 24 hours. If uncomfortable ice may be helpful. Some injections may make your arms or legs weak for a few hours. Be extremely careful when walking or changing positions that you do not fall. Have someone assist you for the next 6 hours. If weakness or numbness becomes progressive CALL IMMEDIATELY or GO TO THE NEAREST EMERGENCY ROOM Do not restart physical therapy or chiropractic manipulation until 48 hours after your injection Call : If weakness or numbness suddenly becomes worse or become progressive If the injection site becomes red, swollen, warm to the touch, begins to bleed or drain fluid, or is excessively painful. If you have any questions Medications: Resume all the medications you were taking prior to your injection. Resume your anticoagulants tomorrow unless otherwise instructed by your family physician, a&p technician or the anticoagulation clinic. Additional Instructions: None Driving: You may resume driving in 12-24 hours if no weakness is noted . Date you may return to work or school: N/A Follow Up: Please make a follow-up telephone appointment with our nursing staff in 4-6 weeks. documented in this encounter H&P Notes * Tal Medina DO - 06/22/2024 12:12 PM EST Interventional Pain H&P Subjective: History of Present Illness: Brandan Morgan is a 68 year old year-old male with a past medical history significant for lumbar radicular pain and spinal stenosis who is presenting for bilateral L5 TFESI to improve his pain and function. his pain is essentially unchanged since our last office visit with him. ASA 3 AW nml Review of Systems: A focused 12-pt ROS were of reviewed with the patient including difficulty with sleep, snoring, aspiration history, dysphagia, stomach pain, nausea and vomiting, severe headaches, confusion, open skin lesions or wounds, chest pain, shortness of breath, excessive thirst, somnolence, dysuria, incomplete bladder emptying, easy bruising, recent clotting problems or bleeding, depression or rushed thoughts unless noted previously. Review of patient's allergies indicates: Allergen Reactions Spironolactone Other (Please comment) Undesired breast changes/pain Medications, Past Medical History, Past Surgical History reviewed and documented in Epic. See detailed report if needed. Pertinent Labs/Test Results: INR Date Value 12/08/2023 1.1 02/28/2020 0.99 No results found for: "CREATININE" Hemoglobin A1C (%) Date Value 12/24/2022 5.4 07/06/2018 5.4 No results found for: "AMPHETAMINE", "BARBITURATES", "BENZODIAZEPINES", "BUPRENORPHINE", "METHADONE", "OPIATES", "OXYCODONE", "PHENCYCLIDINE", "CANNABINOIDS", "TOX SCREEN", "URINE", "TOX SCREEN-SERUM", "TOX SCREEN, URINE" Imaging: I personally reviewed the imaging and my findings were . XR CHEST 2 VIEWS Narrative: EXAM XR CHEST 2 VIEWS - 06/13/2024 2:13 pm HISTORY "Dyspnea" TECHNIQUE Frontal and lateral views of the chest were obtained. COMPARISON XR CHEST 2 VIEWS, ACC: [id number], dated 2024-02-23 13:33:14 FINDINGS Left-sided cardiac pacer/ICD. There is a right basilar chest tube. Mild cardiomegaly. Right basilar opacity from atelectasis or consolidation with pleural effusion. No pneumothorax. Impression: IMPRESSION Right basilar opacity/pleural fluid. Objective Physical Exam: Vital Signs: BP 125/79 | Pulse 60 | Temp 36.6 C (97.9 F) (Tympanic) | Resp 18 | Ht 1.88 m (6' 2") | Wt 112 kg (247 lb) | SpO2 94% | BMI 31.71 kg/m | BSA 2.42 m Body mass index is 31.71 kg/m. General: No apparent distress. Eyes: pupils equal and round, sclera white, pupils midsize. ENT: mucous membranes moist Resp: Non-labored breathing CV: Extremities warm and well-perfused. Psych: Oriented; affect warm, insight good. Skin: No rashes or lesions appreciated on exposed skin Neuromuscular Exam: Facet loading neg, SLR pos, TTT over lumbar spine Assessment: Brandan is a 68 year old year-old male with: Lumbosacral spinal stenosis and radicular pain Plan: The patient is undergoing bilateral L5 TFESI today to alleviate his pain and improve his function. The risks, benefits and alternatives to the procedure were reviewed at length and the patient was provided the opportunity to ask questions which were answered to their voiced understanding. Followingthis comprehensive discussion, the patient opted to proceed. The patient was consented to the procedure following this comprehensive conversation. Tal Medina DO OR OS, Operating Room [address] [address] documented in this encounter Nursing Notes * Sen Araujo RN - 06/22/2024 1:03 PM EST [address] [address] [facility] Discharge Note Name: Brandan Morgan Date: 06/22/2024 Time: 1:03 PM Discharge Disposition: Home Responsible adult as escort home: Transport Mode: Ambulatory Accompanied by: Torrey Araujo RN To: Car Belongings with patient: Yes Patient meets criteria to be transferred or discharged. * Tere Whitman RN - 06/21/2024 9:[address] Larios office aware that patient was on antibiotics with last dose on 06/20/24. Per office ok to proceed with procedure on 06/22/24. * Tere Whitman RN - 06/06/2024 10:07 AM EST Patient called with arrival time for procedure on 06/08/24. Per notes patient was to hold plavix x5days. Patient report taking plavix last on 06/05/24. Pain clinic and Dr. Medina made aware. Patient to be called and rescheduled. Case dropped to the depot. documented in this encounter OR Notes * OR Surgeon - Tal Medina DO - 06/22/2024 12:45 PM EST LUMBAR TRANSFORAMINAL EPIDURAL STEROID INJECTION DATE: 06/22/2024 PHYSICIAN: Tal Medina DO PREOPERATIVE DIAGNOSIS: Lumbosacral spondylosis with lumbosacral radiculopathy. POSTOPERATIVE DIAGNOSIS: Lumbosacral spondylosis with lumbosacral radiculopathy. PROCEDURE PERFORMED: 1. L5 transforaminal epidural steroid injections, bilateral. 2. Fluoroscopy for precise needle placement. ANESTHESIA: Local infiltration with 1% lidocaine MONITORS: Automatic blood pressure cuff, pulse oximetry and ECG INDICATIONS: Brandan Morgan ([id number]) is a 68 year old year-old male with a history of lumbosacral radiculopathy who presents today for a bilateral L5 transforaminal epidural steroid injection to alleviate his discomfort and improve his pain. MEDICATIONS: No current facility-administered medications for this encounter. ALLERGIES: Review of patient's allergies indicates: Allergen Reactions Spironolactone Other (Please comment) Undesired breast changes/pain REVIEW OF SYSTEMS: Negative for fever, chills, chest pain, SOB, bleeding abnormalities, nausea, vomiting, diarrhea, worsening edema, or new rashes. FOCUSED PHYSICAL EXAMINATION: The patient is awake, alert and oriented, and is in no acute distress. Vital signs are stable. The patient is afebrile. The rest of the physical examination is essentially unchanged from the patient's recent visit to our office. I explained the procedure to the patient including the risks, benefits and alternatives to the procedure. The risks discussed with the patient included but were not limited to: bleeding, infection, and damage to surrounding nerves, tissues, and organs, paralysis, increased pain, allergic reaction, blood pressure instability, seizures, heart block, headaches, increase in blood sugar, worsening of glaucoma, blindness, manic episodes, mood instability. Alternatives to the procedure were also explained and include: do nothing, surgery, medications, and physical therapy. The patient verbalized understanding and was willing to proceed. PROCEDURE IN DETAIL: An informed consent was obtained. The patient was taken to the procedure room,where the patient was positively identified by the staff and the attending physician. The patient was positioned on the procedure bed. The patient's vital signs were monitored as above and remained stable throughout the procedure. The skin was prepped and draped in the standard sterile fashion. A surgical pause (time-out) was performed and was agreed upon by the members of the team. A view of theneuroforamen of L5 on the right side was acquired by ipsilaterally obliquing the image intensifier.The skin and subcutaneous tissues were anesthetized with 1% lidocaine using a 25-gauge 1-inch needle. After that, a 22-gauge, 5-inch spinal needle was advanced under the L5 pedicle on the right side. The needle's position was verified in both AP and lateral views. Additionally, the needle's position was verified by injecting radiopaque dye, 2.5 ml (total) That showed excellent spread of the dyealong the nerve root and some spread into the epidural space. After additional negative aspiration,2.25mL of an injectate containing 15 mg of dexamethasone, 1.5mL of 1% lidocaine and 1.5mL of sterile PFNS was injected onto the nerve root. The needle was withdrawn. The procedure was repeated in thesame fashion on the contralateral side. The patient tolerated the procedure well. COMPLICATIONS: None. DISPOSITION: 1. Return to clinic in 1-2 months for follow-up evaluation, sooner as needed. 2. Resume activity as tolerated. 3. Patient can drive after 12-24 hours if no weakness noted. Tal Medina DO OR OS, Operating Room OSHP [address] [place] [phone] documented in this encounter Plan of Treatment Upcoming Encounters Date Type Department Care Team (Late st Contact Info) Description 07/17/2024 12:40 PM EST Office Visit [facility] [place] [address] [place] [address] Rohan Mckenzie DO [address] [facility] [place] [address] 07/27/2024 2:00 PM EST Scheduled Telephone Interventional Pain Center, [facility] [address] [facility] [place] [address] Rachid Nurse Phone Call Interventional Pain [facility] [address] [facility] [place] [address] 08/15/2024 1:00 PM EST Nurse Only Ancillary [facility] [address] [place] [address] [place] Nurse Annual Wellness [facility] [address] [place] [address] 08/16/2024 12:40 PM EST Office Visit Pulmonary Medicine, [address] [place] [address] Dom Grossman MD [address] [facility] [place] [address] 09/28/2024 10:00 AM EDT Office Visit Cardiology, [address] [place] [address] Karie Swanson PA-C [address] [facility] [place] [address] 12/01/2024 1:30 PM EDT Office Visit Cardiology, [address] [place] [address] Cindy Monte CRNP [address] [facility] [place] [address] 01/24/2025 1:15 PM EDT Office Visit Ophthalmology, [place] [address] [place] [address] Abilio Hensley DO [address] [place] [address] 08/16/2025 3:00 PM EST Nurse Only Ancillary [address]enery [place] [address] [place] [address] [place] Nurse Annual Wellness [address] [facility] [place] [address] Scheduled Procedures Name Priority Associated Diagnoses Date/Ti [...] this encounter Medical Devices Implanted Type Area Talent Management Manager Device Identifier Shelf Expiration Date Model / Serial / Lot Lens 17.5 Sn60wf - [id number] Implanted:Qty : 1 on 06/27/2014 by Rich Brooks MD at OR [facility] Right: Eye [employer] 03/18/2019 SN60WF.17 5 / [id number] / Lens 18.0 Sn60wf - [id number] - [id number] Implanted:Qty : 1 on 07/22/2022 by Abilio Hensley DO at OR [facility] Left: Eye MIRIAN : SURGICAL 11/16/2023 SN60WF.1 8 0 / [id number] / Patch Xenosure [id number] - [id number] Implanted:Qty : 1 on 12/24/2022 by Jean Garcia MD [place] [facility] Left: Femoral Artery [employer] [id number] 08/15/2028 E0.8P8 / [id number] / [id number] Patch Xenosure [id number] - [id number] - [id number] Implanted:Qty : 1 on 07/05/2023 by Jean Garcia MD at [place] [facility] Left: Carotid [employer] [id number] 01/13/2029 E0.8P8 / [id number] / [id number] documented as of this encounter Procedures Procedure Name Priority Date/Time Associated Diagnosis Comments FLUORO INTERVENTIONAL PAIN PROCEDURE NONBILLABLE Routine 06/22/2024 12:45 PM EST documented in this encounter Results * FLUORO INTERVENTIONAL PAIN PROCEDURE NONBILLABLE (06/22/2024 12:45 PM EST) Narrative Scheduling, Silent - 06/22/2024 12:45 PM EST This procedure will not be read by a Radiologist. Please see operative note. us Max Chase Adam DO RAD FLUOROSCOPY Final Result documented in this encounter Active and Recently Administered Medications Times are shown in EST. PRN Medication Order 06/20/2024 06/21/2024 06/22/2024 Iopamidol (Isovue M 200) inj (CANCELED) ONCE PRN INTRA PROCEDURE, Starting on Nathaly 12/24 at 1234, Until Nathaly 06/22/24 at 1243, Intra-Op 1234 (Given - Provid er: Tal Medina, DO - Comment: bilateral lower medial back) lidocaine 1 % 1.5 mL, dexAMETHasone Sodium Phosphate 15 mg in NSS 1.5 mL inj (CANCELED) ONCE PRN INTRA PROCEDURE, Starting on Nathaly 12/12/09 at 1241, Until Nathaly 06/22/24 at 1243, Intra-Op 1241 (Given - Provid er: Tal Medina, DO - Comment: bilateral lower medial back) lidocaine 1 % 3 mL in NSS 2 mL inj (CANCELED) ONCE PRN INTRA PROCEDURE, Starting on Nathaly 06/22/24 at 1233, Until Nathaly 06/22/24 at 1243, Intra-Op 1233 (Given - Provid er: Tal Medina, DO - Comment: bilateral lower medial back) documented in this encounter Advance Directives * [...] the patient have Health Care Power of Hose Tubing Backer? No * Full Code Date Activated Date [...] and were consensually agreed upon. Care Teams Bath Mixer Relationship Specialty Start Date End Date Rohan Mckenzie DO [facility] [place] [address] PCP - General Family Medicine 05/27/16 documented as of this encounter
--- OUTSIDE RECORDS SUMMARY | 2024-08-04 01:34 | External Medical Summary ---
Author Name Unknown Address Unknown Organization K09[facility] [place] [id number] Laboratory Report Ordering Provider Test Date Status MAX,ADDY 06/13/2024 14:14:19 Final Observation Date Value Abnormality Reference (Units ) Status Creatinine 06/13/2024 14:14:19 1.2 0.6-1.2 (mg/dL) Final Glomerular filtration rate/1.73 sq M.predicted [Volume Rate/Area] in Serum, Plasma or Blood by Creatinine-based formula (CKD-EPI) 06/13/2024 14:14:19 67 >=60 (mL/min) Final eGFR is calculated based on the CKD-EPI 2020 equation. Performing Location [facility] [place] [address]
--- OUTSIDE RECORDS SUMMARY | 2024-08-04 01:34 | External Medical Summary ---
Author Name Unknown Address Unknown Organization [facility] [place] [id number] Laboratory Report Ordering Provider Test Date Status SEAN PAYTON 06/13/2024 14:14:19 Final Observation Date Value Abnormality Reference (Units ) Status WBC, Total 06/13/2024 14:14:19 8.25 4.00-10.8 0 (K/uL) Final RBC 06/13/2024 14:14:19 4.18 4.50-5.25 (M/uL) Final Hemoglobin 06/13/2024 14:14:19 13.9 Below low normal 14 .0-16.8 (g/dL) Final HCT 06/13/2024 14:14:19 40.4 40.0-48.4 (%) Final MCV 06/13/2024 14:14:19 96.7 82.0-99.5 (fL) Final MCH 06/13/2024 14:14:19 33.3 27.0-34.0 (pg) Final MCHC 06/13/2024 14:14:19 34.4 32.0-36.0 (g/dL) Final RDW 06/13/2024 14:14:19 13.8 11.5-15.5 (%) Final Platelets 06/13/2024 14:14:19 127 Below low normal 140 -400 (K/uL) Final MPV 06/13/2024 14:14:19 8.6 6.6-11.1 ( fL) Final Performing Location [facility] [place] [address]
--- OUTSIDE RECORDS SUMMARY | 2024-08-04 01:34 | External Medical Summary | Summary of Care ---
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 Name Role Phone Rohan Mckenzie DO Primary Care Provider [phone] Reason for Visit * Reason Comments Follow Up Encounter Details Date Type Department Care Team (Late st Contact Info) Description 06/05/2024 12:40 PM EST Office Visit Pulmonary Medicine, [facility] [address] [facility] [place] [phone] Dom Grossman MD [address] [facility] [place] [phone] Pleural effusion on right* Allergies Active Allergy Reactions Criticality Noted Date Comments Spironolactone Other (Please comment) Medium Undesired breast changes/pain documented as of this encounter (statuses as of 06/05/2024) Medications B Complex Vitamins (B COMPLEX 50) [...] 24 Active Additional Information Patient taking differently: [id number], Reported on 06/05/2024 Albuterol Sulfate HFA 108 (90 Base) MCG/ACT Inhalation Aerosol SolutionIndicatio ns:Pulmonary fibrosis (HCC),Lung nodule,PVD (peripheral vascular disease) (HCC) TAKE 2 PUFFS BY MOUTH EVERY 6 HOURS NEEDED FOR WHEEZE 18 g 3 09/13/19 24 Active Eplerenone 25 MG Oral Tablet (Inspra)Indicatio ns:Ischemic cardiomyopathy,Ac [place] systolic congestive heart failure, NYHA class 1 (HCC) Take 1 Tablet by mouth in the morning. 90 Tablet 3 10/18/19 24 Active HYDROcodone-Aceta minophen 5-325 MG Oral TabletIndications :Foraminal stenosis of lumbar region Take 1 Tablet by mouth every 6 hours as needed for Pain, Moderate. 20 Tablet 12/08/19 24 Active Ezetimibe 10 MG Oral Tablet [...] morning. 90 Tablet 3 02/22/20 24 Active Metoprolol Succinate ER 25 MG [...] bedtime. 60 Capsule 3 05/11/20 24 Active Trelegy Ellipta 100-62.5-25 MCG/ACT Aerosol Powder Breath Activated (Fluticasone-Umec lidinium-Vilanter ol) Inhale 1 Puff by mouth in the morning. NPI : [id number]. 90 Blister Dosing Unit 3 05/30/20 Active Respiratory Therapy Supplies Device Use as directed. PleurX catheter, right Active Azithromycin 250 MG Oral Tablet (Zithromax Z-Perry) Please take 500 mg by mouth on day one, followed by 250 mg by mouth for four days. 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 09/19/2020 Essential [...] as of this encounter (statuses as of 06/05/2024) Resolved Problems Problem Noted Date Diagnosed Date Resolved Date Aneurysm of aorta 05/17/2023 12/08/2023 Old myocardial infarction 05/17/2023 Tinea pedis of both feet 11/18/2022 Atherosclerosis of [place] co ronary artery without angina pectoris 09/15/2022 12/08/2023 Coronary artery disease invo lving coronary bypass graft of [place] heart 03/07/2020 12/08/2023 Neuropathic foot ulcer, righ [...] DIS NOS 07/05/2002 hypercholesterol 07/05/2002 12/08/2023 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 documented as of this encounter (statuses as of 06/05/2024) Immunizations Name Administration Dates Next Due COVID-19 mRNA, LNP-s, No Pre serve, 2-Dose Series ([employer]) 05/27/2021,10/10/2020,09/12/2020 Covid-19, Mrna, Lnp-s, Pf, B ivalent, 30 Mcg, IM, 12 yrs and above ([employer]) 06/23/2022 Pneumococcal Conjugate Vacci ne, 20-valent ([id number]) 07/03/2022 Pneumococcal Polysaccharide PPV23 (Pneumovax) 06/17/2021,04/01/2006 RSV [...] money to buy more. 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 Not on file Not on file Not on file documented as of this encounter Last Filed Vital Signs Vital Sign Reading Time Taken Comments Blood Pressure 120/72 06/05/2024 12:50 PM EST Pulse 64 06/05/2024 12:50 PM EST Temperature 36.5 C (97.7 F) 06/05/2024 1 2:50 PM EST Respiratory Rate 20 06/05/2024 12:5 0 PM EST Oxygen Saturation 92% 06/05/2024 12: 51 PM EST ra, amb Inhaled Oxygen Concentration - - Weight 112.4 kg (247 lb 12.8 oz) 2023 12:50 PM EST Height 188 cm (6' 2") 06/05/2024 12:50 PM EST Body Mass Index 31.82 06/05/2024 12:50 PM EST documented in this encounter Functional [...] documented in this encounter Progress Notes * Dom Grossman MD - 06/05/2024 12:54 PM EST 06/05/2024 Pulmonary Medicine, [address] [place] [id number] Brandan Morgan 1955 male 68 year old Attending Physician Documentation: 68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 PET scan which did not show any evidence of increased uptake within right lung consolidation or effusion. Patient has been compliant with diuretic regimen. Denies high-grade fever, cough, purulent expectoration. Plan: C/w fluid drainage twice weekly, upto 1 L C/w Entresto + Lasix + Plavix C/w Trelegy, c/w Albuterol Optimize Lasix to 80 mg Daily for 5 days Refill Stand by rescue pack ordered (Z pack + Medrol Dose Pack) F/u 2 months, Jul 2024 Souse to send picture of Catheter site at next dressing change CXR PA/Lat view x 1 week Follow Up: Return in about 2 months (around 08/05/2024) for Clinic Visit. 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 PET Follow Up: Return in about 2 months (around 08/05/2024) for Clinic Visit. | For: Clinic Visit | Check-out note: scan which did not show any evidence of increased uptake within right lung consolidationor effusion. Patient has been compliant with diuretic regimen. Denies high-grade fever, cough, purulent expectoration. Plan: C/w fluid drainage twice weekly, upto 1 L C/w Entresto + Lasix + Plavix C/w Trelegy, c/w Albuterol Optimize Lasix to 80 mg Daily for 5 days Refill Stand by rescue pack ordered (Z pack + Medrol Dose Pack) F/u 2 months, Jul 2024 Souse to send picture of Catheter site at next d Follow Up: Return in about 2 months (around 08/05/2024) for Clinic Visit. | For: Clinic Visit | Check-out note: ressing change CXR PA/Lat view x 1 week Dom Grossman MD Data review: Following reports, and data as outlined below was personally reviewed and interpreted by myself. Chest x-ray 02/23/2024 shows expanded right lung with near complete resolution of right pleural effusion and PleurX catheter in adequate position. XR CHEST 2 VIEWS - 01/21/2024 11:31 am FINDINGS Right basilar chest tube. Partially loculated small right pleural effusion is grossly stable. No consolidation. No pneumothorax. Stable cardiomediastinal silhouette. IMPRESSION Persistent small right pleural effusion. BNP, marker for volume overload, currently at 3013 units, decreased from 3668 units noted in December 08, 2023 Normal for age group less than 900 units GFR 76 Repeat chest x-rays including latest x-ray few days ago shows gradually decreasing right pleural effusion PET CT SKULL BASE TO MID-THIGH FDG - 10/26/2023 - 68 y/o ,M,Right Lung consolidation, with trap lung, Hx of [place] work, Smoking. Subsequent evaluation. COMPARISON: September 29, 2023 CT chest. July 26, 2015 FDG-PET/CT. IMPRESSION: 1. Emphysema. Nonhypermetabolic right lower lobe rounded atelectasis. Small to moderate right pleural effusion. 2. Ectatic distal abdominal aorta. Aorta recommendation: Recommend followup by ultrasound in 3 years. Subjective CC: Chief Complaint Patient presents with Follow Up HPI: Nursing Notes: Stefanie Vicente LPN 06/05/24 1256 Addendum Pt for f/u pleural effusion. MMRC Dyspnea Scale = 1 (I get short of breath when hurrying on level ground or walking up a slight hill) Interm History/Respiratory Symptoms Cough: no Hemoptysis: no Sinus Symptoms: no Hospitalizations: not since last visit ED Trips: no Triggers: none Nocturnal: no problems CPAP/BiPAP/O2: CPAP use in the past, but didn't tolerate DME Supplier: n/a Flu Vaccine: 2023 Pneumovax: 2020 Prevnar: 2021 COVID 19: x4 Objective Filed Vitals: 06/05/24 1250 06/05/24 1251 BP: 120/72 Pulse: 64 Resp: 20 Temp: 36.5 C (97.7 F) TempSrc: Tympanic SpO2: 95% 92% Weight: 112.4 kg (247 lb 12.8 oz) Height: 1.88 m (6' 2") Exam: Const: No signs of acute distress present. Head/Face: Normal on inspection. Eyes: Conjunctivae clear. Pupils equal round and reactive to light. ENMT: Oropharynx: No erythema, exudate or masses. Posterior pharynx is normal. Neck: Supple and symmetric. Resp: Respiratory examination as outlined above CV: Rate is regular. Rhythm is regular. No heart murmur appreciated. Extremities: No edema of the lower limbs bilaterally. Skin: Skin is warm and dry. Neuro: Coordination normal. No involuntary movement. Psych: Patient's attitude is cooperative. Mood is normal. Affect is normal. Tests reviewed with the patient: CT L SPINE W CONTRAST Result Date: 04/10/2024 IMPRESSION: Transitional lumbosacral anatomy with the transitional body labeled as a partially lumbarized S1 for the purposes of the study. Caution with regard to vertebral numbering is advised priorto any potential future interventions. 1. Multilevel degenerative changes of the lumbar spine, as described in detail above. No acute osseous abnormality. 2. Partially visualized right-sided pleural effusion and right-sided pleural drainage catheter. 3. Please see above for full description of findings. XR CHEST 2 VIEWS Result Date: 02/23/2024 IMPRESSION Mild right basilar atelectasis and small pleural effusion. XR CHEST 2 VIEWS Result Date: 01/21/2024 IMPRESSION Persistent small right pleural effusion. VASC AORTIC DUPLEX EVAL-COMPLETE Result Date: 01/19/2024 : There is evidence of a 3.5 cm abdominal aortic aneurysm. Color Doppler imaging demonstrates flow consistent with a patent lumen at and distal to the aortic aneurysm. VASC ANKLE BRACHIAL INDICES WITHOUT PPG (PAD) Result Date: 01/19/2024 : RONAN at rest is 0.93 on the right and 0.86 on the left. For the right lower extremity: Lower extremity Doppler Evaluation is normal at rest with no evidence of significant arterial occlusive disease. For the left lower extremity: Lower extremity Doppler Evaluation is consistent with mild arterial occlusive disease. XR CHEST 2 VIEWS Result Date: 01/03/2024 IMPRESSION Right basilar opacity/pleural fluid., mildly improved XR CHEST 1 VIEW Result Date: 12/23/2023 IMPRESSION: Right basilar atelectasis or pneumonia with right pleural effusion, slightly decreased in size from prior exam. THIS DOCUMENT HAS BEEN ELECTRONICALLY SIGNED BY ROMEO MORE MD XR CHEST 2 VIEWS Result Date: 12/20/2023 IMPRESSION Moderate-sized right pleural effusion, increased in size from prior examination with associated right basilar atelectasis. XR CHEST 1 VIEW Result Date: 12/09/2023 IMPRESSION: Small right pleural pleural effusion, decreased post thoracentesis. THIS DOCUMENT HAS BEEN ELECTRONICALLY SIGNED BY NATHAN JARVIS DO CT CHEST W CONTRAST Result Date: 12/08/2023 IMPRESSION: 1. No evidence of acute pulmonary embolism. 2. Areas of consolidation and/or atelectasis within the right lower lobe and the posterior right middle lobe with associated air bronchograms. 3. Large right pleural fluid collection. THIS DOCUMENT HAS BEEN ELECTRONICALLY SIGNED BY JOHNY NAVARRO MD XR CHEST 2 VIEWS Result Date: 12/08/2023 IMPRESSION Increased moderate right pleural effusion and right basilar opacity. Available Radiologic data was reviewed by me in PACS. The images were shown to the patient and findings were discussed with the patient. HOME MEDICATIONS: Azithromycin 250 MG Oral Tablet (Zithromax Z-Perry) methylPREDNISolone 4 MG Oral Tablet Therapy Pack (Medrol Dosepack) Respiratory Therapy Supplies Device Trelegy Ellipta 100-62.5-25 MCG/ACT Aerosol Powder Breath Activated (Jxifidnmmlu-Sqbxrcntfick-Kbcuibqgwm) Gabapentin 300 MG Oral Capsule (Neurontin) Clopidogrel Bisulfate 75 MG Oral Tablet (pLAVix) Amiodarone HCl 200 MG Oral Tablet (Cordarone) Metoprolol Succinate ER 25 MG Oral Tablet Extended Release 24 Hour (toPROL XL) Metoprolol Succinate ER 50 MG Oral Tablet Extended Release 24 Hour (toPROL XL) Rosuvastatin Calcium 10 MG Oral Tablet (Crestor) Furosemide 40 MG Oral Tablet (Lasix) Sacubitril-Valsartan 97-103 MG Oral Tablet (Entresto) Acetaminophen 325 MG Oral Tablet (Tylenol) Aspirin Low Dose 81 MG Oral Tablet Delayed Release (aspirin enteric coated) Ezetimibe 10 MG Oral Tablet (Zetia) HYDROcodone-Acetaminophen 5-325 MG Oral Tablet Eplerenone 25 MG Oral Tablet (Inspra) Albuterol Sulfate HFA 108 (90 Base) MCG/ACT Inhalation Aerosol Solution Allopurinol 300 MG Oral Tablet (Zyloprim) Furosemide 40 MG Oral Tablet (Lasix) PreserVision AREDS Oral Capsule Econazole Nitrate 1 % External Cream (Spectazole) nitroglycerin (NITROSTAT) 0.4 MG SUBL Misc. Devices MISC B Complex Vitamins (B COMPLEX 50) TABS Arexvy 120 MCG/0.5ML Intramuscular Suspension Reconstituted (RSV PreF3 Vac Recomb Adjuvanted) ROS: No reported history of Hemoptysis, Hematemesis, Melena No reported history of Dysuria, Hematuria, Flank Pain No reported history of chronic headache, seizures No reported history of Fall or trauma . No reported history of recent change in weight or appetite. 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, T1N0M0 Other specified forms of chronic ischemic heart disease age 41 12/23/1996 angioplasty stent, inferior posterior NH Personal history of colonic polyps 03/28/2009 adenoma repeat in 1 yr, history of villous adenoma 2007 Personal history of colonic polyps 03/28/2010 polyps--hyperplastic tissue repeat in 2 yrs Personal history of colonic polyps 01/06/2013 normal no polyps, benign mucosa Pleural effusion post inferior wall NH 12/23/1996 Past Surgical History: Procedure Laterality Date CARDIAC ANGIOPLASTY, PERCUTANEOUS, 1 ARTERY Right 03/07/2020 PTCA, CARDIAC ANGIOPLASTY, PERCUTANEOUS, 1 ARTERY performed by Johny Schmidt DO at CARDIAC LABS [facility] COLONOSCOPY THRU STOMA, W/BIOPSY 03/28/2010 polyps--hyperplastic tissue repeat in 2 yrs COLONOSCOPY W/ BIOPSY (RECTUM) 03/28/2009 adenoma repeat in 1 yr COLONOSCOPY W/ LESION REMOVAL, SNARE 08/12/2007 villous adenoma, repeat 6 months COLONOSCOPY W/ LESION REMOVAL, SNARE 02/10/2008 repeat in 1 yr COLONOSCOPY, DIAGNOSTIC (RECTUM) 01/06/2013 COLONOSCOPY FLEXIBLE PROXIMAL DIAGNOSTIC performed by Eloy Wilder MD at ENDOSCOPY [facility], NO RESIDUAL POLYP TISSUE REPEAT COLONOSCOPY IN 5 YEARS COLONOSCOPY, DIAGNOSTIC (RECTUM) 01/12/2018 adenomatous & hyperplastic polyps, repeat 5 yrs/COLONOSCOPY FLEXIBLE PROXIMAL DIAGNOSTIC performed by Eloy Wilder MD at ENDOSCOPY [facility] CORONARY ARTERY DILATION, [place] age 41 inferior wall NH age 41, 1996, angioplasty, stent at [facility] ENDART COMMON FEMORAL Left 12/24/2022 COMMON FEMORAL ENDARTERECTOMY performed by Jean Garcia MD at OR [facility] EXCISION OF MOUTH FLOOR LESION Right 08/09/2015 EXCISION LESION FLOOR OF MOUTH performed by Rush Landaverde DO at OR [facility] ILIAC ART. REVASC W/ STENT+ANGIOPLASTY Left 12/24/2022 ILIAC ARTERY REVASC W/ STENT+ANGIOPLASTY performed by Jean Garcia MD at OR [facility] INFORMATION Right R ankle fx repair w/ hardware. INJECT DX/THER SUBSTANCE INTERLAMINAR LUMBAR/SACRAL W IMAGE GUIDE 05/20/2022 INJECTION SPINE LUMBAR OR SACRAL performed by Samuel Simon DO at OR [facility] INJECT DX/THER SUBSTANCE INTERLAMINAR LUMBAR/SACRAL W IMAGE GUIDE 09/09/2022 INJECTION SPINE LUMBAR OR SACRAL performed by Samuel Simon DO at OR [facility] IR ARTERIOGRAM EXTREMITY UNILATERAL Left 12/24/2022 IMAGING SUPERVISION & INTERPRETATION EXTREMITY UNILATERAL performed by Jean Garcia MD atOR [facility] L-/S-SPINE PARAVERTEBRAL FACET INJ,1 LEVEL 01/14/2024 L-/S-SPINE PARAVERTEBRAL FACET INJ, 1 LEVEL performed by Tal Medina DO at OR [facility] L-/S-SPINE PARAVERTEBRL FACET INJ,2 LEVELS 01/14/2024 L-/S-SPINE PARAVERTEBRAL FACET INJ, 2 LEVELS performed by Tal Medina DO at OR [facility] PELVIS/HIP JOINT SURGERY NEC Left 09/17/2021 UNLISTED PROCEDURE PELVIS OR HIP JOINT performed by Micky Rodriguez DO at OR [facility] PELVIS/HIP JOINT SURGERY NEC Right 12/17/2021 HIP CORE DECOMPRESSION performed by Micky Rodriguez DO at OR [facility] REMOVAL OF APPENDIX age 19 [place] REMOVAL OF NECK LYMPH NODES Right 08/09/2015 SUPRAHYOID LYMPHADENECTOMY performed by Rush Landaverde DO at OR [facility] REMOVAL OF SUBMAXILLARY GLAND Right 08/09/2015 EXCISION SUBMANDIBULAR (SUBMAXILLARY) GLAND performed by Rush Landaverde DO at OR [facility] REMOVE CATARACT, INSERT LENS PROSTH Right 06/27/2014 EXTRACAPSULAR CATARACT REMOVAL WITH INTRAOCULAR LENS performed by Rich Brooks MD at OR [facility] REMOVE CATARACT, INSERT LENS PROSTH Left 07/22/2022 LEFT EXTRACAPSULAR CATARACT REMOVAL WITH INTRAOCULAR LENS performed by Abilio Hensley DO at OR [facility] SKIN SPLIT GRAFT, FACE/NECK/EARS Right 08/09/2015 SPLIT GRAFT FACE SCALP ETC LESS THAN 100SQ CM performed by Rush Landaverde DO at OR [facility] THROMBOENDARECTOMY W/PATCH,NECK INCISION Left 07/05/2023 CAROTID ENDARTERECTOMY performed by Jean Garcia MD at OR [facility] Social History Socioeconomic History Marital status: Number of children: 2 Occupational History 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 Employer: [employer] Comment: [employer] Occupation: Retired Tobacco Use Smoking status: Former Current packs/day: 0.00 Average packs/day: 1 pack/day for 40.0 years (40.0 ttl pk-yrs) Types: Cigarettes Start date: 08/07/1975 Quit date: 08/07/2015 Years since quittin.8 Smokeless tobacco: Never Vaping Use Vaping status: Never Used Substance and Sexual Activity Alcohol use: Yes Alcohol/week: 28.0 standard drinks of alcohol Types: 28 12 oz of beer per week Comment: 3-4 beer per day Drug use: No Sexual activity: Yes Partners: Female control/protection: Surgical Other Topics Concern Service No Social History Narrative Born in [facility]. Living in [facility] since Lives with for 40 years. 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 (Adult - for ages 18 years and over): No Food Insecurity: No Food Insecurity (08/11/2023) Food Insecurity Do you need food for this week? (Adult - for ages 18 years and over): No Transportation Needs: No Transportation Needs (08/11/2023) Transportation Needs Do you have trouble getting a ride to medical visits or work? (Adult - for ages 18 years and over):Never True Social Connections: Socially Integrated (08/11/2023) Social Connections How often do you feel lonely or isolated from those around you? (Adult - for ages 18 years and over): Never Housing Stability: Low Risk (08/11/2023) Housing Stability Do you currently live in a fpc or have no steady place to sleep at night? (Adult - for ages 18 years and over): No Do you think you are at risk of becoming homeless? (Adult - for ages 18 years and over): No Family History Problem Relation Name Age of Onset Other (anemia) Mother Heart Disorder Father Stroke Grandmother (Paternal) Cancer None Diabetes None Thyroid Disorder None Hypertension None Eye Problems None denies FH: AMD, RD's, GLAUCOMA, BLINDNESS Review of patient's allergies indicates: Allergen Reactions Spironolactone Other (Please comment) Undesired breast changes/pain documented in this encounter Nursing Notes * Stefanie Vicente LPN - 06/05/2024 12:45 PM EST Pt for f/u pleural effusion. MMRC Dyspnea Scale = 1 (I get short of breath when hurrying on level ground or walking up a slight hill) Interm History/Respiratory Symptoms Cough: no Hemoptysis: no Sinus Symptoms: no Hospitalizations: not since last visit ED Trips: no Triggers: none Nocturnal: no problems CPAP/BiPAP/O2: CPAP use in the past, but didn't tolerate DME Supplier: n/a Flu Vaccine: 2023 Pneumovax: 2020 Prevnar: 2021 COVID 19: x4 documented in this encounter Plan of Treatment Upcoming Encounters Date Type Department Care Team (Late st Contact Info) Description 06/08/2024 9:47 AM EST Hospital Encounter [facility], Operating Room [facility] [address] [place] [phone] Tal Medina, DO [address] [place] [phone] 06/08/2024 9:47 AM EST - 06/08/2024 10:15 AM EST Surgery OR [facility], Operating Room [facility] [address] [place] [phone] Tal Medina, [address] [place] [phone] INJECTION SPINE LUMBAR OR SACRAL 06/13/2024 11:30 AM EST Office Visit Cardiology, [facility] [address] [place] [phone] Víctor Mcclain MD [address] [place] [phone] 07/17/2024 12:40 PM EST Office Visit Family Practice [facility] Vanessa Covert [address] [place] [phone] Rohan Mckenzie, DO [address] [place] [phone] 08/15/2024 1:00 PM EST Nurse Only Ancillary [facility] [address] [place] [phone] [place], Nurse Annual Wellness [facility] [address] [place] [phone] 12/01/2024 1:30 PM EDT Office Visit Cardiology, [facility] [address] [place] [address] Cindy Monte CRNP [address] [place] [phone] 01/24/2025 1:15 PM EDT Office Visit OphthalmologyJordy [address] [place] [address] Abilio Hensley DO [address] [place] [address] Scheduled Orders Name Type Priority Associated Diagnoses Orde r Schedule XR CHEST 2 VIEWS Medical Imaging Routine Pleural effusion on right Expected: 06/12/2024, Expires: 07/05/2025 Scheduled Procedures Name Priority Associated Diagnoses Date/Ti me INJECTION SPINE LUMBAR OR SACRAL Spinal stenosis of lumbar region with neurogenic claudication 06/08/2024 9:47 AM EST COLONOSCOPY FLEXIBLE PROXIMAL DIAGNOSTIC Recall History of colon polyps Health Maintenance Due Date Last Done Comments Cologuard 2000 Fecal Occult Blood Test 2000 Sigmoidoscopy 2000 Colonoscopy 01/12/2023 01/12/2018, 12/18, 01/06/2013, Additional history exists Colorectal Cancer Screening 01/12/2023 COVID-19 Vaccine ( season) 2024 06/23/2022, 05/27/2021, 10/10/2020, Additional history exists Adult Wellness Visit 08/11/2024 08/11/2023 Depression Screening 08/11/2024 08/11/2023 GFR 02/22/2025 02/23/2024, 01/16, 01/19/2024, Additional history exists Albumin/Creatinine Ratio 10/23/2025 10/23/2022 [...] this encounter Medical Devices Implanted Type Area Director Personal Device Identifier Shelf Expiration Date Model / Serial / Lot Lens 17.5 Sn60wf - [id number] Implanted:Qty : 1 on 06/27/2014 by Rich Brooks MD at OR [facility] Right: Eye [employer] 03/18/2019 SN60WF.17 5 / [id number] / Lens 18.0 Sn60wf - [id number] - [id number] Implanted:Qty : 1 on 07/22/2022 by Abilio Hensley DO at OR [facility] Left: Eye MIRIAN : SURGICAL 11/16/2023 SN60WF.1 8 0 / [id number] / Patch Xenosure 0.6wkt2ok - [id number] Implanted:Qty : 1 on 12/24/2022 by Jean Garcia MD at OR [facility] Left: Femoral Artery [employer] [id number] 08/15/2028 E0.8P8 / [id number] / [id number] Patch Xenosure 0.3nyk7ui - [id number] - [id number] Implanted:Qty : 1 on 07/05/2023 by Jean Garcia MD at OR [facility] Left: Carotid [employer] [id number] 01/13/2029 E0.8P8 / [id number] / [id number] documented as of this encounter Visit Diagnoses Diagnosis Pleural effusion on right- Primary Unspecified pleural effusion Spinal stenosis of lumbar region with neurogenic claudication Spinal stenosis, lumbar region, with neurogenic claudication documented in this encounter Advance Directives * [...] the patient have Health Care Power of Die Fitter? No * Full Code Date Activated Date [...] and were consensually agreed upon. Care Teams Briquette Machine Operator Helper Relationship Specialty Start Date End Date Rohan Mckenzie DO [address] [place] [address] PCP - General Family Medicine 05/27/16 documented as of this encounter
--- OUTSIDE RECORDS SUMMARY | 2024-08-04 01:34 | External Medical Summary ---
Author Name Unknown Address Unknown Organization K09:[facility] [place] [address] Laboratory Report Ordering Provider Test Date Status SEAN PAYTON 06/13/2024 14:14:19 Final Observation Date Value Abnormality Reference (Units ) Status SYNC LEUKOCYTES IN BLOOD BY AUTOMATED COUNT 06/13/2024 14:14:19 8.25 4.00-10.80 (K/uL) Final Segs 06/13/2024 14:14:19 73.0 40.0-75.0 (%) Final Lymphs % 06/13/2024 14:14:19 11.3 Below low normal 18.0-42.0 (%) Final Monos 06/13/2024 14:14:19 14.4 Above high normal 1.0-11.0 (%) Final Eosinophils 06/13/2024 14:14:19 0.8 0.0-6.0 (%) Final Basos 06/13/2024 14:14:19 0.5 0.0-2.0 (%) Final Absolute Segs 06/13/2024 14:14:19 6.02 1.80-7.70 (K/uL) Final Lymphs, absolute 06/13/2024 14:14:19 0.93 Below low normal 1.00-4.80 (K/ul) Final Monos, Abs 06/13/2024 14:14:19 1.19 Above high normal 0.00-1.10 (K/uL) Final Eos, Abs 06/13/2024 14:14:19 0.07 0.00-0.70 (K/uL) Final Basos, Abs 06/13/2024 14:14:19 0.04 0.00-0.20 (K/uL) Final Performing Location [facility] [place] [address]
--- OUTSIDE RECORDS SUMMARY | 2024-08-04 01:34 | External Medical Summary | Summary of Care ---
Author Name Unknown Organization [facility] Address [address] [facility] [place] [address] Phone [phone] Care Team Providers Care Care Advocate Name Role Phone Rohan Mckenzie DO Primary Care Provider [phone] Reason for Visit * Reason Comments Outpatient Testing Encounter Details Date Type Department Care Team (Late st Contact Info) Description 06/13/2024 2:10 PM EST Laboratory Laboratory [facility] [place] [address] [place] [phone] [place], [address] Sc[address] [place] [address] Spinal stenosis of lumbar region with neurogenic claudication; Pleural effusion on right Allergies Active Allergy Reactions Criticality Noted Date Comments Spironolactone Other (Please comment) Medium Undesired breast changes/pain documented as of this encounter (statuses as of 06/13/2024) Medications B Complex Vitamins (B COMPLEX 50) [...] 24 Active Additional Information Patient taking differently: [id number], Reported on 06/05/2024 Albuterol Sulfate HFA 108 [...] by mouth in the morning. NPI : [id number]. 90 Blister Dosing Unit 3 05/30/20 24 Active Respiratory Therapy Supplies Device Use as directed. PleurX catheter, right Active Azithromycin 250 MG Oral Tablet (Zithromax Z-Perry) Please take 500 mg by mouth on day one, followed by 250 mg by mouth for four days. 6 Tablet 06/05/20 24 Active methylPREDNISolon e 4 MG Oral Tablet Therapy Pack (Medrol Dosepack) follow package directions 21 Tablet 06/05/20 24 Active documented as of this encounter (statuses as of 06/13/2024) Active Problems Problem Noted Date Diagnosed Date [...] artery disease of n ative artery of [place] heart with stable angina pectoris 09/19/2020 Essential [...] as of this encounter (statuses as of 06/13/2024) Resolved Problems Problem Noted Date Diagnosed Date Resolved Date Aneurysm of aorta 05/17/2023 12/08/2023 Old myocardial infarction 05/17/2023 Tinea pedis of both feet 11/18/2022 Atherosclerosis of [place] co ronary artery without angina pectoris 09/15/2022 12/08/2023 Coronary artery disease invo lving coronary bypass graft of [place] heart 03/07/2020 12/08/2023 Neuropathic foot ulcer, righ [...] DIS NOS 07/05/2002 hypercholesterol 07/05/2002 12/08/2023 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 documented as of this encounter (statuses as of 06/13/2024) Immunizations Name Administration Dates Next Due COVID-19 mRNA, LNP-s, No Pre serve, 2-Dose Series ([employer]) 05/27/2021,10/10/2020,09/12/2020 Covid-19, Mrna, Lnp-s, Pf, B ivalent, 30 Mcg, IM, 12 yrs and above ([employer]) 06/23/2022 Pneumococcal Conjugate Vacci ne, 20-valent (Lcnvmyv39) 07/03/2022 Pneumococcal Polysaccharide PPV23 (Pneumovax) 06/17/2021,04/01/2006 RSV Vac., Recomb, Adjuvant, PF,0.5 Ml (Arexvy) 05/12/2024 Seasonal Influenza Vac., MDV , IM, 0.5 mL (Fluzone) 03/26/2014,04/08/2013,04/14/2011,04/30,06/12/2009,05/29/2008,05/05/2007 ,06/15/2006 Seasonal Influenza Virus Vac cine, Unspecified Formulation 04/07/2023,04/08/2022,04/22/2021,04/01,04/10/2019,04/26/2018,04/21/2017 ,04/22/2016,03/26/2014,04/08/2013,03/20,04/30/2010,06/12/2009,,05/05/2007,06/15/2006 Seasonal Influenza, High Dos e, Trivalent, PF, [...] 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 on file [...] Care Team (Late st Contact Info) Description 06/22/2024 2:34 PM EST Hospital Encounter [facility] Operating [facility] [address] [place], [place] [address] [place] [address] Tal Medina DO [address] [place] [address] 06/22/2024 2:34 PM EST - 06/22/2024 3:01 PM EST Surgery [facility], Operating Room [facility] [address] [place], [place] [address] [phone] Tal Medina, DO [address] [place] [address] INJECTION TRANSFORAMINAL EPIDURAL LUMBAR OR SACRAL 07/17/2024 12:40 PM EST Office Visit Family Practice [facility] [address] [place] [address] Rohan Mckenzie, DO [address] [facility] [place] [address] 08/15/2024 1:00 PM EST Nurse Only Ancillary [facility] [address] [place] [address] [place], Nurse Annual Wellness [facility] 200 [facility] [place] [address] 08/16/2024 12:40 PM EST Office Visit Pulmonary Medicine, [facility] 132 [facility] [place] [address] Dom Grossman MD [address] [place] [address] 09/28/2024 10:00 AM EDT Office Visit Cardiology, [facility] 132 [facility] [place] [address] Karie Swanson PA-C [address] [place] [address] 12/01/2024 1:30 PM EDT Office Visit Cardiology, [facility] 132 [facility] [place] [address] Cindy Monte CRNP [address] [place] [address] [place] [address] 01/24/2025 1:15 PM EDT Office Visit Ophthalmology, [place] [address] [place] [address] Abilio Hensley DO 21 [facility] [place] [address] Pending Results Name Type Priority Associated Diagnoses Date /Time CREATININE Lab Routine Spinal stenosis of lumbar region with neurogenic claudication 06/13/2024 2:14 PM EST CBC WITH WBC DIFFERENTIAL Lab Routine Pleural effusion on right 06/13/2024 2:14 PM EST CBC Lab Routine Pleural effusion on right 06/13/2024 2:14 PM EST DIFFERENTIAL, AUTOMATED Lab Routine Pleural effusion on right 06/13/2024 2:14 PM EST Scheduled Procedures Name Priority Associated Diagnoses Date/Ti me INJECTION TRANSFORAMINAL EPIDURAL LUMBAR OR SACRAL Spinal stenosis of lumbar region with neurogenic claudication 06/22/2024 2:34 PM EST COLONOSCOPY FLEXIBLE PROXIMAL DIAGNOSTIC Recall History [...] this encounter Medical Devices Implanted Type Area Stock Clerk Self Service Store Device Identifier Shelf Expiration Date Model / Serial / Lot Lens 17.5 Sn60wf - [id number] Implanted:Qty : 1 on 06/27/2014 by Rich Brooks MD at OR [facility] Right: Eye [employer] 03/18/2019 SN60WF.17 5 / [id number] / Lens 18.0 Sn60wf - [id number] - [id number] Implanted:Qty : 1 on 07/22/2022 by Abiloi Hensley DO at OR [facility] Left: Eye MIRIAN : SURGICAL 11/16/2023 SN60WF.1 8 0 / [id number] / Patch Xenosure 0.3zjx0eu - [id number] Implanted:Qty : 1 on 12/24/2022 by Jean Garcia MD at [place] [facility] Left: Femoral Artery [employer] [id number] 08/15/2028 E0.8P8 / [id number] / [id number] Patch Xenosure 0.0lyg4le - [id number] - [id number] Implanted:Qty : 1 on 07/05/2023 by Jean Garcia MD at [place] [facility] Left: Carotid [employer] [id number] 01/13/2029 E0.8P8 / [id number] / [id number] documented as of this encounter Visit Diagnoses Diagnosis Spinal stenosis of lumbar region with neurogenic claudication Spinal stenosis, lumbar region, with neurogenic claudication Pleural effusion on right Unspecified pleural effusion Spinal stenosis of lumbar [...] the patient have Health Care Power of Stock Selector? No * Full Code Date Activated Date [...] were consensually agreed upon. Care Teams Care Advocate Relationship Specialty Start Date End Date Rohan Mckenzie DO 200 [facility] [place] [address] PCP - General Family Medicine 05/27/16 documented as of this encounter
--- OUTSIDE RECORDS SUMMARY | 2024-08-04 01:34 | External Medical Summary | Summary of Care ---
Author Name Unknown Organization [facility] Address [address] [facility] [place] [address] Phone [phone] Care Team Providers Care Landcare Officer Name Role Phone Rohan Mckenzie DO Primary Care Provider [phone] Encounter Details Date Type Department Care Team (Late st Contact Info) Description 06/06/2024 Result Scan Unspecified Department Víctor Mcclani MD [address] [place], [place] [id number] <No scans attached> Allergies Active Allergy Reactions Criticality Noted Date Comments Spironolactone Other (Please comment) Medium Undesired breast changes/pain documented as of this encounter (statuses as of 06/06/2024) Medications B Complex Vitamins (B COMPLEX 50) [...] 24 Active Additional Information Patient taking differently: [id number], Reported on 06/05/2024 Albuterol Sulfate HFA 108 [...] by mouth in the morning. NPI : [id number]. 90 Blister Dosing Unit 3 05/30/20 Active [...] as of this encounter (statuses as of 06/06/2024) Active Problems Problem Noted Date Diagnosed Date [...] artery disease of n ative artery of [place] heart with stable angina pectoris 09/19/2020 Essential [...] as of this encounter (statuses as of 06/06/2024) Resolved Problems Problem Noted Date Diagnosed Date Resolved Date Aneurysm of aorta 05/17/2023 12/08/2023 Old myocardial infarction 05/17/2023 Tinea pedis of both feet 11/18/2022 Atherosclerosis of [place] co ronary artery without angina pectoris 09/15/2022 12/08/2023 Coronary artery disease invo lving coronary bypass graft of [place] heart 03/07/2020 12/08/2023 Neuropathic foot ulcer, righ [...] DIS NOS 07/05/2002 hypercholesterol 07/05/2002 12/08/2023 Post [place] syndrome 07/05/2002 08/12/2018 Overview (07/13/2015): 1996 age 41, inferior wall [place], angioplasty and stent placement at [facility]. 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 on file [...] Team (Late st Contact Info) Description 06/13/2024 11:30 AM EST Office Visit Cardiology, [facility] [address] [place] [address] Víctor Mcclain MD [address] [place] [address] 06/22/2024 2:34 PM EST Hospital Encounter [facility], Operating Room [facility] [address] [place], [place] [address] [address] Tal Medina DO [address] [place] [address] 06/22/2024 2:34 PM EST - 06/22/2024 3:01 PM EST Surgery [facility], Operating Room [facility] [address] [place] [address] Tal Medina, DO 132 [facility] [place] [phone] INJECTION TRANSFORAMINAL EPIDURAL LUMBAR OR SACRAL 07/17/2024 12:40 PM EST Office Visit Family Practice [facility] [address] [place] [address] Rohan Mckenzie, DO 200 [facility] [place] [address] 08/15/2024 1:00 PM EST Nurse Only Ancillary [facility] [place] [address] [place] [address] [place], Nurse Annual Wellness [facility] [address] [facility] [place] [address] 08/16/2024 12:40 PM EST Office Visit Pulmonary Medicine, [facility] 132 [facility] [place] [address] Dom Grossman MD [address] [facility] [address] 12/01/2024 1:30 PM EDT Office Visit Cardiology, [facility] 132 [facility] [place] [address] Cindy Monte CRNP [address] [facility] [place] [address] 01/24/2025 1:15 PM EDT Office Visit Ophthalmology, [place] [address] [place] [address] Abilio Hensley, DO [address] [place] [address] Scheduled Procedures Name Priority Associated Diagnoses Date/Ti [...] this encounter Medical Devices Implanted Type Area Airline Pilot Flight Instructor Device Identifier Shelf Expiration Date Model / Serial / Lot Lens 17.5 Sn60wf - [id number] Implanted:Qty : 1 on 06/27/2014 by Rich Brooks MD at OR [facility] Right: Eye [employer] 03/18/2019 SN60WF.17 5 / [id number] / Lens 18.0 Sn60wf - [id number] - [id number] Implanted:Qty : 1 on 07/22/2022 by Abilio Hensley DO at OR [facility] Left: Eye MIRIAN : SURGICAL 11/16/2023 SN60WF.1 8 0 / [id number] / Patch Xenosure 0.1yjn4cc - [id number] Implanted:Qty : 1 on 12/24/2022 by Jean Garcia MD at OR [facility] Left: Femoral Artery [employer] [id number] 08/15/2028 E0.8P8 / [id number] / [id number] Patch Xenosure 0.4vjx7qg - [id number] - [id number] Implanted:Qty : 1 on 07/05/2023 by eJan Garcia MD at OR [facility] Left: Carotid [employer] [id number] 01/13/2029 E0.8P8 / [id number] / [id number] documented as of this encounter Procedures Procedure Name Priority Date/Time Associated Diagnosis Comments CARDIOLOGY SCANNED RESULT 06/06/2024 documented in this encounter Results * CARDIOLOGY SCANNED RESULT (06/06/2024) 06/06/2024 Víctor Mcclain MD OTHER Final Result documented [...] patient have Health Care Power of Manager Of Business Operations? No * Full Code Date Activated Date [...] and were consensually agreed upon. Care Teams Landcare Officer Relationship Specialty Start Date End Date Rohan Mckenzie DO [address] [place] [address] PCP - General Family Medicine 05/27/16 documented as of this encounter
--- OUTSIDE RECORDS SUMMARY | 2024-08-04 01:34 | External Medical Summary | Summary of Care ---
Author Name Unknown Organization [facility] Address [address] [facility] [place] [address] Phone [phone] Care Team Providers Care Railroad Baggage Porter Name Role Phone Rohan Mckenzie DO Primary Care Provider [phone] Reason for Visit * Reason Comments Defibrillator Clinic Encounter Details Date Type Department Care Team (Latest Contact Info) Description 06/05/2024 1:00 PM EST Cardiac Studies Cardiology, [facility] 132 [place] [address] [place], Pacer Clinic [facility] 132 [facility] [place] [address] Ischemic cardiomyopathy*; Biventricular ICD (implantable cardioverter-defibri llator) in place; Chronic heart failure with reduced ejection fraction and diastolic dysfunction ([facility]); LBBB (left bundle branch block); Sustained VT (ventricular tachycardia) ([facility]) Allergies Active Allergy Reactions Criticality Noted Date [...] 24 Active Additional Information Patient taking differently: [id number], Reported on 06/05/2024 Albuterol Sulfate HFA 108 [...] by mouth in the morning. NPI : [id number]. 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 Providers please see scanned report in the Scans tab. Left pectoral device pocket is healthy without erythema, swelling, pain, or drainage. CTT completed, auto capture turned on. No recorded events Battery longevity 5.7-6.1 years documented in this encounter Plan of Treatment Upcoming Encounters Date Type Department Care Team (Late st Contact Info) Description 06/08/2024 9:47 AM EST Hospital Encounter [facility], Operating Room [facility] [address] [place] [address] [place] [address] Tal Medina, [address] [place] [address] 06/08/2024 9:47 AM EST - 06/08/2024 10:15 AM EST Surgery [facility], Operating Room [facility] [address] [place] [address] [place] [address] Tal Medina DO [address] [place] [address] INJECTION SPINE LUMBAR OR SACRAL 06/13/2024 11:30 AM EST Office Visit Cardiology, [facility] [address] [place] [address] Víctor Mcclain MD [address] [place] [address] 07/17/2024 12:40 PM EST Office Visit Family Practice [facility] [address] 200 [facility] [place] [address] Rohan Mckenzie, DO 200 [facility] [place] [address] 08/15/2024 1:00 PM EST Nurse Only Ancillary [facility] [place] 200 [facility] [place] [address] [place], Nurse Annual Wellness [facility] 200 [facility] [place] [address] 08/16/2024 12:40 PM EST Office Visit Pulmonary Medicine, [facility] [address] [place] [address] Dom Grossman MD [address] [place] [address] 12/01/2024 1:30 PM EDT Office Visit Cardiology, [facility] 132 [facility] [place] [address] Cindy Monte CRNP 400 [facility] [place] [address] 01/24/2025 1:15 PM EDT Office Visit Ophthalmology, [place] [address] [facility] [place] [address] Abilio Hensley DO [address] [facility] [place] [address] Scheduled Orders Name Type Priority Associated Diagnoses Orde r Schedule MULTI-LEAD DEFIBRILLATOR + REPROGRAM Procedures Routine Ischemic cardiomyopathy Biventricular ICD (implantable cardioverter-defibrill ator) in place Chronic heart failure with reduced ejection fraction and diastolic dysfunction (HCC) LBBB (left bundle branch block) Sustained VT (ventricular tachycardia) (HCC) Ordered: 06/05/2024 Scheduled Procedures Name Priority Associated Diagnoses Date/Ti [...] this encounter Medical Devices Implanted Type Area Disassembler Product Device Identifier Shelf Expiration Date Model / Serial / Lot Lens 17.5 Sn60wf - [id number] Implanted:Qty : 1 on 06/27/2014 by Rich Brooks MD at OR [facility] Right: Eye [employer] 03/18/2019 SN60WF.17 5 / [id number] / Lens 18.0 Sn60wf - [id number] - [id number] Implanted:Qty : 1 on 07/22/2022 by Abilio Hensley DO at OR [facility] Left: Eye MIRIAN : SURGICAL 11/16/2023 SN60WF.1 8 0 / [id number] / Patch Xenosure 0.3ykm9vv - [id number] Implanted:Qty : 1 on 12/24/2022 by Jean Garcia MD at OR [facility] Left: Femoral Artery [employer] [id number] 08/15/2028 E0.8P8 / [id number] / [id number] Patch Xenosure 0.8pgm7ff - [id number] - [id number] Implanted:Qty : 1 on 07/05/2023 by Jean Garcia MD at [facility] Left: Carotid [employer] [id number] 01/13/2029 E0.8P8 / [id number] / [id number] documented as of this encounter Visit Diagnoses Diagnosis Ischemic cardiomyopathy- Primary Other specified forms of chronic ischemic heart disease Biventricular ICD (implantable cardioverter-defibrillator) in place Chronic heart failure with reduced ejection fraction and diastolic dysfunction (HCC) LBBB (left bundle branch block) Other left bundle branch block Sustained VT (ventricular tachycardia) (HCC) Paroxysmal ventricular tachycardia Spinal stenosis of lumbar region with neurogenic [...] the patient have Health Care Power of Quencher Operator? No * Full Code Date Activated [...] and were consensually agreed upon. Care Teams Railroad Baggage Porter Relationship Specialty Start Date End Date Rohan Mckenzie DO [address] [place], [place] [phone] PCP - General Family Medicine 05/27/16 documented as of this encounter
--- OUTSIDE RECORDS SUMMARY | 2024-08-04 01:34 | External Medical Summary | Summary of Care ---
Author Name Unknown Organization [facility] Address [address] [facility] [place] [address] Phone [phone] Care Team Providers Care Hammer Fitter Name Role Phone Rohan Mckenzie DO Primary Care Provider [phone] Encounter Details Date Type Department Care Team (Late st Contact Info) Description 06/21/2024 Telephone Interventional Pain Center, [facility] [address] [place] [address] Tal Medina DO [address] [place] [phone] Allergies Active Allergy Reactions Criticality Noted Date Comments Spironolactone Other (Please comment) Medium 4 Undesired breast changes/pain documented as of this encounter (statuses as of 06/21/2024) Medications B Complex Vitamins (B COMPLEX 50) [...] 24 Active Additional Information Patient taking differently: [id number], Reported on 06/05/2024 Albuterol Sulfate HFA 108 [...] by mouth in the morning. NPI : [id number]. 90 Blister Dosing Unit 3 05/30/20 Active [...] as of this encounter (statuses as of 06/21/2024) Active Problems Problem Noted Date Diagnosed Date [...] artery disease of n ative artery of [place] heart with stable angina pectoris 09/19/2020 Essential [...] as of this encounter (statuses as of 06/21/2024) Resolved Problems Problem Noted Date Diagnosed Date Resolved Date Aneurysm of aorta 05/17/2023 12/08/2023 Old myocardial infarction 05/17/2023 Tinea pedis of both feet 11/18/2022 Atherosclerosis of [place] ronary artery without angina pectoris 09/15/2022 12/08/2023 Coronary artery disease invo lving coronary bypass graft of [place] heart 03/07/2020 12/08/2023 Neuropathic foot ulcer, righ [...] 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 ----- Message ----- From: Tal Medina DO Sent: 06/21/2024 8:43 AM EST To: Taina Turpin LPN; Cindy Adams LPN Subject: FW: Steroid injection on 06/22/24 Looks like we are good to go. MP ----- Message ----- From: Dom Grossman MD Sent: 06/21/2024 7:52 AM EST To: Tal Medina DO; Taina Turpin LPN Subject: RE: Steroid injection on 06/22/24 Not confirmed. Superficial catheter exit site erythema at PleurX catheter site, without induration or drainage. Normal WBC and normal neutrophil count. Remains afebrile. Antibiotic therapy was more empiric in nature. Sincerely Dr. Grossman ----- Message ----- From: Tal Medina DO Sent: 06/20/2024 5:20 PM EST To: Dom Grossman MD; Taina Turpin LPN Subject: RE: Steroid injection on 06/22/24 Is this an active skin infection at this time? Thanks for clarifying. Thanks for getting back to us so quickly! Tal Medina DO OR OS, Operating Room [address] [address] ----- Message ----- From: Dom Grossman MD Sent: 06/20/2024 4:17 PM EST To: Tal Medina DO; Taina Turpin LPN Subject: RE: Steroid injection on 06/22/24 The injectable therapy should be okay from our standpoint to proceed. Antibiotic therapy was initiated for local skin site infection concerns at catheter site. Sincerely Dr Grossman ----- Message ----- From: Taina Turpin LPN Sent: 06/20/2024 3:10 PM EST To: Dom Grossman MD; # Subject: Steroid injection on 06/22/24 Hello, Patient is scheduled for L5 Transforaminal injection on 06/22/24. Patient recently started on Ceftin, azithromycin and Medrol dose pack for possible infection. Is it appropriate for patient to continue with scheduled injection or do you wish patient to be rescheduled. documented in this encounter Plan of Treatment Upcoming Encounters Date Type Department Care Team (Late st Contact Info) Description 06/22/2024 12:23 PM EST Hospital Encounter [facility], Operating Room [facility] [address] [place] [phone] Tal Medina, [address] [place] [phone] 06/22/2024 12:23 PM EST - 06/22/2024 12:50 PM EST Surgery [facility], Operating Room [facility] [address] [place] [address] [place] [address] Tal Medina, [address] [place] [phone] INJECTION TRANSFORAMINAL EPIDURAL LUMBAR OR SACRAL 07/17/2024 12:40 PM EST Office Visit Family Practice [facility] [address] [place] [address] Rohan Mckenzie, DO [address] [facility] [place] [address] 08/15/2024 1:00 PM EST Nurse Only Ancillary [facility] [place] [address] [facility] [place] [address] [place], Nurse Annual Wellness [facility] [address] [facility] [place] [address] 08/16/2024 12:40 PM EST Office Visit Pulmonary Medicine, [facility] [address] [place] [address] Dom Grossman MD [address] [place] [address] 09/28/2024 10:00 AM EDT Office Visit Cardiology, [facility] [address] [place] [address] Karie Swanson PA-C [address] [place] [address] 12/01/2024 1:30 PM EDT Office Visit Cardiology, [facility] [address] [place] [address] Cindy Monte CRNP [address] [place] [address] 01/24/2025 1:15 PM EDT Office Visit Ophthalmology, [place] [address] [place] [address] Abilio Hensley DO [address] [place] [address] Scheduled Procedures Name Priority Associated Diagnoses Date/Ti me INJECTION TRANSFORAMINAL EPIDURAL LUMBAR OR SACRAL Spinal stenosis of lumbar region with neurogenic claudication 06/22/2024 12:23 PM EST COLONOSCOPY FLEXIBLE PROXIMAL DIAGNOSTIC Recall [...] this encounter Medical Devices Implanted Type Area Co Founder Device Identifier Shelf Expiration Date Model / Serial / Lot Lens 17.5 Sn60wf - [id number] Implanted:Qty : 1 on 06/27/2014 by Rich Brooks MD at OR [facility] Right: Eye [employer] 03/18/2019 SN60WF.17 5 / [id number] / Lens 18.0 Sn60wf - [id number] - [id number] Implanted:Qty : 1 on 07/22/2022 by Abilio Hensley DO at OR [facility] Left: Eye MIRIAN : SURGICAL 11/16/2023 SN60WF.1 8 0 / [id number] / Patch Xenosure 0.0smg5ek - [id number] Implanted:Qty : 1 on 12/24/2022 by Jean Garcia MD at OR [facility] Left: Femoral Artery [employer] [id number] 08/15/2028 E0.8P8 / [id number] / [id number] Patch Xenosure 0.8sul6cr - [id number] - [id number] Implanted:Qty : 1 on 07/05/2023 by Jean Garcia MD at OR [facility] Left: Carotid [employer] [id number] 01/13/2029 E0.8P8 / [id number] / [id number] documented as of this encounter Advance Directives [...] the patient have Health Care Power of Soccer Player? No * Full Code Date Activated Date [...] and were consensually agreed upon. Care Teams Hammer Fitter Relationship Specialty Start Date End Date Rohan Mckenzie DO [address] [place] [address] PCP - General Family Medicine 05/27/16 documented as of this encounter
[2024-08-04 01:35] LABS: Troponin I High Sensitivity 67.5 pg/ml (0-20)
--- OUTSIDE RECORDS SUMMARY | 2024-08-04 01:35 | External Medical Summary | Summary of Care ---
Author Name Unknown Organization [facility] Address [address] [place] [address] Phone [phone] Care Team Providers Care Beauty Culturist Apprentice Name Role Phone Rohan Mckenzie DO Primary Care Provider [phone] Reason for Visit * Reason Onset Date Comments Advice 05/30/2024 Encounter Details Date Type Department Care Team (Late st Contact Info) Description 05/30/2024 Telephone Pulmonary Medicine, [facility] [address] [place] [address] Services, Scheduling [address] [place] [address] Advice Allergies Active Allergy Reactions Criticality Noted Date Comments Spironolactone Other (Please comment) Medium Undesired breast changes/pain documented as of this encounter (statuses as of 05/31/2024) Medications B Complex Vitamins (B COMPLEX 50) [...] 24 Active Additional Information Patient taking differently: [id number], Reported on 01/18/2024 Albuterol Sulfate HFA 108 (90 Base) MCG/ACT [...] Active Additional Information Patient not taking.Reported on 02/28/2024 Ezetimibe 10 MG Oral Tablet (Zetia)Indication s:High [...] bedtime. 60 Capsule 3 05/11/20 24 Active documented as of this encounter (statuses as of 05/31/2024) Active Problems Problem Noted Date Diagnosed Date [...] artery disease of n ative artery of [place] heart with stable angina pectoris 09/19/2020 Essential [...] as of this encounter (statuses as of 05/31/2024) Resolved Problems Problem Noted Date Diagnosed Date Resolved Date Aneurysm of aorta 05/17/2023 12/08/2023 Old myocardial infarction 05/17/2023 Tinea pedis of both feet 11/18/2022 Atherosclerosis of [place] co ronary artery without angina pectoris 09/15/2022 12/08/2023 Coronary artery disease invo lving coronary bypass graft of [place] heart 03/07/2020 12/08/2023 Neuropathic foot ulcer, righ [...] wall [place], angioplasty and stent placement at [facility]. documented as of this encounter (statuses as of 05/31/2024) Immunizations Name Administration Dates Next Due COVID-19 mRNA, LNP-s, No Pre serve, 2-Dose Series (BlackbookHR) 05/27/2021,10/10/2020,09/12/2020 Covid-19, Mrna, Lnp-s, Pf, B ivalent, 30 Mcg, IM, 12 yrs and above (BlackbookHR) 06/23/2022 Pneumococcal Conjugate Vacci ne, 20-valent ([id number]) 07/03/2022 Pneumococcal Polysaccharide PPV23 (Pneumovax) 06/17/2021,04/01/2006 RSV [...] No 08/11/2023 Does the household have a [facility] source of income? 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 (5 years old or older) Answer Entry Date Author No 07/05/2023 2:58 PM EST Hilario Rapp RN documented in this encounter Miscellaneous Notes * Telephone Encounter - Leidy Andrea LPN - 05/31/2024 8:25 AM EST See the Padinmotion message regarding paperwork * Telephone Encounter - Zoe Dahl OSA - 05/30/2024 5:01 PM EST Patient calling in to speak with nurse - patient wanted to speak to someone about paperwork that hewas filling out. Please contact patient when able. Thank you! documented in this encounter Plan of Treatment Upcoming Encounters Date Type Department Care Team (Late st Contact Info) Description 06/05/2024 12:40 PM EST Office Visit Pulmonary Medicine, [facility] [address] [facility] [place] [address] Dom Grossman MD [address] [facility] [place] [id number] 06/05/2024 1:00 PM EST Cardiac Studies Cardiology, [facility] [address] [facility] [place] [address] [place], Pacer [address] [place] [address] 06/08/2024 12:55 PM EST Hospital Encounter OR OSH[facility], Operating Room [facility] [address] [place] [address], [place] [address] Tal Medina, DO [address] [place] [phone] 06/08/2024 12:55 PM EST - 06/08/2024 1:20 PM EST Surgery [facility], Operating Room [facility] [address] [place] [phone] Tal Medina, DO [address] [place] [address] INJECTION SPINE LUMBAR OR SACRAL 06/13/2024 11:30 AM EST Office Visit Cardiology, [facility] [address] [place] [address] Víctor Mcclain MD [address] [place] [address] 07/17/2024 12:40 PM EST Office Visit Family Practice [facility] [place] [address] [place] [address] Rohan Mckenzie, DO [address] [place] [address] 08/15/2024 1:00 PM EST Nurse Only Ancillary [facility] [place] [address] [place] [address] [place], Nurse Annual Wellness [facility] [address] [place] [address] 12/01/2024 1:30 PM EDT Office Visit Cardiology [facility] [address] [place] [address] Cindy Monte CRNP [address] [place] [address] [place] [address] 01/24/2025 1:15 PM EDT Office Visit Ophthalmology, [place] [address] [place] [address] Abilio Hensley DO [address] [place] [address] Scheduled Procedures Name Priority Associated Diagnoses Date/Ti me INJECTION SPINE LUMBAR OR SACRAL Spinal stenosis of lumbar region with neurogenic claudication 06/08/2024 12:55 PM EST COLONOSCOPY FLEXIBLE PROXIMAL DIAGNOSTIC Recall [...] this encounter Medical Devices Implanted Type Area Composition Floor Setter Device Identifier Shelf Expiration Date Model / Serial / Lot Lens 17.5 Sn60wf - [id number] Implanted:Qty : 1 on 06/27/2014 by Rich Brooks MD at OR [facility] Right: Eye [employer] 03/18/2019 SN60WF.17 5 / [id number] / Lens 18.0 Sn60wf - [id number] - [id number] Implanted:Qty : 1 on 07/22/2022 by Abilio Hensley DO at OR [facility] Left: Eye MIRIAN : SURGICAL 11/16/2023 SN60WF.1 8 0 / [id number] / Patch Xenosure 0.0txy9zh - [id number] Implanted:Qty : 1 on 12/24/2022 by Jean Garcia MD at OR [facility] Left: Femoral Artery [employer] [id number] 08/15/2028 E0.8P8 / [id number] / [id number] Patch Xenosure 0.2jdd2km - [id number] - [id number] Implanted:Qty : 1 on 07/05/2023 by Jean Garcia MD at OR [facility] Left: Carotid [employer] [id number] 01/13/2029 E0.8P8 / [id number] / [id number] documented as of this encounter Advance Directives [...] the patient have Health Care Power of Merchandising Assistant? No * Full Code Date Activated Date [...] and were consensually agreed upon. Care Teams Beauty Culturist Apprentice Relationship Specialty Start Date End Date Rohan Mckenzie DO [address] [facility] [place] [address] PCP - General Family Medicine 05/27/16 documented as of this encounter
--- OUTSIDE RECORDS SUMMARY | 2024-08-04 01:35 | External Medical Summary | Summary of Care ---
Author Name Unknown Organization [facility] Address [address] [facility] [address] Phone [phone] Care Team Providers Care Electrician Rectifier Maintenance Name Role Phone Rohan Mckenzie DO Primary Care Provider [phone] Reason for Visit * Reason Onset Date Comments Appointment 02/25/[address] Oglesby Encounter Details Date Type Department Care Team (Late st Contact Info) Description 02/25/2024 Telephone Cardiology, [place] [address] [facility] [place] [address] Brissa Oglesby DO [address] [facility] [address] Appointment (Referral to Dr. Oglesby) Allergies Active Allergy Reactions Criticality Noted Date Comments Spironolactone Other (Please comment) Medium Undesired breast changes/pain documented as of this encounter (statuses as of 05/26/2024) Medications B Complex Vitamins (B COMPLEX 50) [...] 024 Active Additional Information Patient taking differently: [id number], Reported on 01/18/2024 Albuterol Sulfate HFA 108 [...] the morning. 90 Tablet 3 024 Active Trelegy Ellipta 100-62.5-25 MCG/ACT Aerosol Powder Breath Activated (Fluticasone-Ume clidinium-Vilant martinez) Inhale 1 Puff by mouth in the morning. 60 Blister Dosing Unit 5 024 Active HYDROcodone-Acet aminophen 5-325 MG Oral TabletIndication s:Foraminal stenosis of lumbar region Take 1 Tablet by mouth every 6 hours as needed for Pain, Moderate. 20 Tablet 024 Active Additional Information Patient not taking.Reported on 02/28/2024 Ezetimibe 10 MG Oral Tablet (Zetia)Indicatio ns:High [...] before bedtime. 180 Tablet 1 024 Active Furosemide 40 MG Oral Tablet (Lasix)Indicatio ns:Acute systolic congestive heart failure, NYHA class 1 (HCC),Essential (primary) hypertension Take 1 Tablet by mouth in the morning. 90 Tablet 3 024 Active Metoprolol Succinate ER 25 MG [...] Clopidogrel Bisulfate 75 MG Oral Tablet (pLAVix) Take 1 Tablet by mouth in the morning. 90 Tablet 2 024 2023 Discontinued Amiodarone HCl 200 MG Oral Tablet (Cordarone) Take 1 Tablet by mouth 2 times a day with morning and evening meals. 180 Tablet 024 2023 Discontinued(R efill) Hospital, Clinic, or Other Facility Administered Medication Ordered Dose Route Frequency Start Date End Date Status Albuterol Sulfate (Proventil) (2.5 MG/3ML) 0.083% inhalation solution 2.5 mgIndications:Dyspnea on exertion 2.5 mg NEBULIZER ONCE PRN 05/06/2023 05/05/2024 Ended documented as of this encounter (statuses as of 05/26/2024) Active Problems Problem Noted Date Diagnosed Date [...] artery disease of n ative artery of [place] heart with stable angina pectoris 09/19/2020 [...] as of this encounter (statuses as of 05/26/2024) Resolved Problems Problem Noted Date Diagnosed Date Resolved Date Aneurysm of aorta 05/17/2023 12/08/2023 Old myocardial infarction 05/17/2023 Tinea pedis of both feet 11/18/2022 Atherosclerosis of [place] co ronary artery without angina pectoris 09/15/2022 12/08/2023 Coronary artery disease invo lving coronary bypass graft of [place] heart 03/07/2020 12/08/2023 Neuropathic foot ulcer, righ [...] DIS NOS 07/05/2002 hypercholesterol 07/05/2002 12/08/2023 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 Left detailed message on pt secure voice mail regarding date and time of appt. Asked pt to call back and confirm. Will follow up and call pt on Wednesday morning if not confirmed. * Telephone Encounter - Magalis Rao NRCMA - 02/25/2024 3:52 PM EDT Spoke with Dr Oglesby and she is planning to see this pt on Wednesday at . will arrange appt per BELLO Rodriguez * Telephone Encounter - Jacky Lyman OSA - 02/25/2024 2:05 PM EDT Person calling: Berkley Baird Relationship to patient: Adult Child Number to return call: [phone] Reason for call(brief): Appt Pharmacy: N/A Provider Name:Dr. Oglesby Detailed message to office: Patient is scheduled to be seen by Dr. Oglesby on 04/18/24 at [facility]. Referral was placed by Dr. Mcclain for ICD Evaluation, patients daughter (Berkley) is checking or a sooner appointment with Dr. Oglesby at [place]. If you can please have Dr. Oglesby review and give Berkley a call back to discuss. Thank You, Jacky Gallagher [address] documented in this encounter Plan of Treatment Upcoming Encounters Date Type Department Care Team (Late st Contact Info) Description 06/05/2024 12:40 PM EST Office Visit Pulmonary Medicine, [facility] [address] [place] [address] [facility]man [facility] [address] [facility] [address] 06/05/2024 1:00 PM EST Cardiac Studies Cardiology, [facility] [place] [address] [place], Pacer Clinic [facility] [place] [address] 06/08/2024 12:55 PM EST Hospital Encounter [facility], Operating Room [facility] [address] [place] [phone] Tal Medina DO [address] [place] [phone] 06/08/2024 12:55 PM EST - 06/08/2024 1:20 PM EST Surgery [facility], Operating Room [facility] [address] [place] [address] Tal Medina, DO [address] [place] [address] INJECTION SPINE LUMBAR OR SACRAL 06/13/2024 11:30 AM EST Office Visit Cardiology, [facility] [address] [place] [address] Víctor Mcclain MD [address] [place] [address] 07/17/2024 12:40 PM EST Office Visit Family Practice [facility] [address] [place] [address] Rohan Mckenzie, DO 200 [facility] [place] [address] 08/15/2024 1:00 PM EST Nurse Only Ancillary [facility] [place] [address] [place] [address] [place], Nurse Annual Wellness [facility] 200 [facility] [place] [address] 12/01/2024 1:30 PM EDT Office Visit Cardiology, [facility] [address] [place] [address] Cindy Monte CRNP [address] [place] [address] [place] [address] 01/24/2025 1:15 PM EDT Office Visit Ophthalmology, [place] [address] [place] [address] Abilio Hensley, [address] [place] [address] Scheduled Procedures Name Priority Associated Diagnoses Date/Ti [...] this encounter Medical Devices Implanted Type Area Supervisor Shipping Room Device Identifier Shelf Expiration Date Model / Serial / Lot Lens 17.5 Sn60wf - [id number] Implanted:Qty : 1 on 06/27/2014 by Rich Brooks MD at OR [facility] Right: Eye [employer] 03/18/2019 SN60WF.17 5 / [id number] / Lens 18.0 Sn60wf - [id number] - [id number] Implanted:Qty : 1 on 07/22/2022 by Abilio Hensley DO at OR [facility] Left: Eye MIRIAN : SURGICAL 11/16/2023 SN60WF.1 8 0 / [id number] / Patch Xenosure 0.8jzd0go - [id number] Implanted:Qty : 1 on 12/24/2022 by Jean Garcia MD at OR [facility] Left: Femoral Artery [employer] [id number] 08/15/2028 E0.8P8 / [id number] / [id number] Patch Xenosure 0.3ibz0vk - [id number] - [id number] Implanted:Qty : 1 on 07/05/2023 by Jean Garcia MD at OR [facility] Left: Carotid [employer] [id number] 01/13/2029 E0.8P8 / [id number] / [id number] documented as of this encounter Advance Directives [...] the patient have Health Care Power of Registered Radiation Therapist? No * Full Code Date Activated Date [...] and were consensually agreed upon. Care Teams Electrician Rectifier Maintenance Relationship Specialty Start Date End Date Rohan Mckenzie DO [address] [place], [place] [address] PCP - General Family Medicine 05/27/16 documented as of this encounter
--- OUTSIDE RECORDS SUMMARY | 2024-08-04 01:35 | External Medical Summary | Summary of Care ---
Author Name Unknown Organization [facility] Address [address] [facility] [place] [address] Phone [phone] Care Team Providers Care Hand Mexican Food Maker Name Role Phone Rohan Mckenzie DO Primary Care Provider [phone] Encounter Details Date Type Department Care Team (Late st Contact Info) Description 05/25/2024 Population Health External Data Unspecified Department Allergies Active Allergy Reactions Criticality Noted Date Comments Spironolactone Other (Please comment) Medium 4 Undesired breast changes/pain documented as of this encounter (statuses as of 06/01/2024) Medications B Complex Vitamins (B COMPLEX 50) [...] 24 Active Additional Information Patient taking differently: [id number], Reported on 01/18/2024 Albuterol Sulfate HFA 108 (90 Base) MCG/ACT Inhalation Aerosol SolutionIndicatio ns:Pulmonary fibrosis (HCC),Lung nodule,PVD (peripheral vascular disease) (HCC) TAKE 2 PUFFS BY MOUTH EVERY 6 HOURS NEEDED FOR WHEEZE 18 g 3 09/13/19 24 Active Eplerenone 25 MG Oral Tablet (Inspra)Indicatio ns:Ischemic cardiomyopathy,[place] systolic congestive heart failure, NYHA class 1 [...] as of this encounter (statuses as of 06/01/2024) Active Problems Problem Noted Date Diagnosed Date [...] artery disease of n ative artery of [place] heart with stable angina pectoris 09/19/2020 Essential [...] as of this encounter (statuses as of 06/01/2024) Resolved Problems Problem Noted Date Diagnosed Date Resolved Date Aneurysm of aorta 05/17/2023 12/08/2023 Old myocardial infarction 05/17/2023 Tinea pedis of both feet 11/18/2022 Atherosclerosis of [place] co ronary artery without angina pectoris 09/15/2022 12/08/2023 Coronary artery disease invo lving coronary bypass graft of [place] heart 03/07/2020 12/08/2023 Neuropathic foot ulcer, righ [...] DIS NOS 07/05/2002 hypercholesterol 07/05/2002 12/08/2023 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 Not on file Not [...] 12:40 PM EST Office Visit Pulmonary Medicine, [facility] [address] [place] [address] Dom Grossman MD [address] [place] [address] 06/05/2024 1:00 PM EST Cardiac Studies Cardiology, [facility] [address] [place] [address] Mov[facility]faride[facility], Pacer Clinic [facility] [address] [place] [address] 06/08/2024 12:55 PM EST Hospital Encounter [facility], Operating Room [facility] [address] [place] [phone] Tal Medina, [address] [place] [phone] 06/08/2024 12:55 PM EST - 06/08/2024 1:20 PM EST Surgery [facility], Operating Room [facility] [address] [place] [phone] Tal Medina DO [address] [place] [phone] INJECTION SPINE LUMBAR OR SACRAL 06/13/2024 11:30 AM EST [facility], [facility] [place] [address] Víctor Mcclain MD 132 [facility] [place] [address] 07/17/2024 12:40 PM EST Office Visit Family Practice [facility] [address] [place] [address] Rohan Mckenzie, DO [address] [facility] [place] [address] 08/15/2024 1:00 PM EST Nurse Only Ancillary [facility] [address] [place] [address] Park, Nurse Annual Wellness [facility] [address] [facility] [place] [address] 12/01/2024 1:30 PM EDT Office Visit Cardiology, [facility] [place] [address] Cindy Monte CRNP [address] [facility] [place] [address] 01/24/2025 1:15 PM EDT Office Visit OphthalmologyJordy [address] [place] [address] Abilio Hensley DO [address] [place] [address] Scheduled Procedures Name Priority Associated Diagnoses Date/Ti [...] this encounter Medical Devices Implanted Type Area Stem Lead Former Device Identifier Shelf Expiration Date Model / Serial / Lot Lens 17.5 Sn60wf - [id number] Implanted:Qty : 1 on 06/27/2014 by Rich Brooks MD at OR [facility] Right: Eye [employer] 03/18/2019 SN60WF.17 5 / [id number] / Lens 18.0 Sn60wf - [id number] - [id number] Implanted:Qty : 1 on 07/22/2022 by Abilio Hensley DO at OR [facility] Left: Eye MIRIAN : SURGICAL 11/16/2023 SN60WF.1 8 0 / [id number] / Patch Xenosure [id number] - [id number] Implanted:Qty : 1 on 12/24/2022 by Jean Garcia MD [place] [facility] [place]: Femoral Artery [employer] [id number] 08/15/2028 E0.8P8 / [id number] / [id number] Patch Xenosure [id number] - [id number] - [id number] Implanted:Qty : 1 on 07/05/2023 by Jean Garcia MD [place] [facility] Left: Carotid [employer] [id number] 01/13/2029 E0.8P8 / [id number] / [id number] documented as of this encounter Advance Directives [...] the patient have Health Care Power of Associate [employer]? No * Full Code Date Activated Date [...] and were consensually agreed upon. Care Teams Hand Mexican Food Maker Relationship Specialty Start Date End Date Rohan Mckenzie DO [facility] [place] [address] PCP - General Family Medicine 05/27/16 documented as of this encounter
--- OUTSIDE RECORDS SUMMARY | 2024-08-04 01:35 | External Medical Summary | Summary of Care ---
Author Name Unknown Organization [facility] [address] [facility] [address] Phone [phone] Care Team Providers Care Chief Credit Officer Name Role Phone Rohan Mckenzie DO Primary Care Provider [phone] Reason for Visit * Reason Onset Date Comments Appointment 05/09/2024 [facility] appointment Encounter Details Date Type Department Care Team (Late st Contact Info) Description 05/09/2024 Telephone Cardiology, [facility] [address] [facility] [place] [address] [facility] [address] [facility] [place] [address] Appointment ([facility] appointment ) Allergies Active Allergy Reactions Criticality Noted Date Comments Spironolactone Other (Please comment) Medium Undesired breast changes/pain documented as of this encounter (statuses as of 05/09/2024) Medications Medication Sig Dispensed Refills Start Date End Date Status B Complex Vitamins (B COMPLEX 50) TABS Take 1 Tablet by mouth in the morning. Active Misc. Devices MISC Custom molded extra depth shoes with accommodative inserts - Offloading of right 4th metatarsal head Dx: neuropathic ulceration right foot 1 Each 04/13/2019 Active nitroglycerin (NITROSTAT) 0.[address] 1 Tablet under the tongue every 5 minutes as needed. Active Econazole Nitrate 1 % External Cream (Spectazole)Indicat ions:History of tinea pedis,Onychomycosis Apply to feet (on nails and in between toes) 2x weekly as maintenance for tinea pedis 85 g 3 10/27/2022 Active PreserVision AREDS Oral Capsule Take 1 Capsule by mouth in the morning and 1 Capsule before bedtime. Active Furosemide 40 MG Oral Tablet (Lasix) Take 1 Tablet by mouth in the morning. And as directed for edema, weight gain. 110 Tablet 3 06/15/2023 Active Allopurinol 300 MG Oral Tablet (Zyloprim)Indicatio ns:Gouty arthropathy TAKE 1 TABLET BY MOUTH EVERY DAY 90 Tablet 3 08/02/2023 Active Additional Information Patient taking differently: [id number], Reported on 01/18/2024 Albuterol Sulfate HFA 108 (90 Base) MCG/ACT Inhalation Aerosol SolutionIndications :Pulmonary fibrosis (HCC),Lung nodule,PVD (peripheral vascular disease) ([facility]) TAKE 2 PUFFS BY MOUTH EVERY 6 HOURS NEEDED FOR WHEEZE 18 g 3 09/13/2023 Active Eplerenone 25 MG Oral Tablet (Inspra)Indications :Ischemic cardiomyopathy,[place] systolic congestive heart failure, NYHA class 1 (HCC) Take 1 Tablet by mouth in the morning. 90 Tablet 3 10/18/2023 Active Trelegy Ellipta 100-62.5-25 MCG/ACT Aerosol Powder Breath Activated (Fluticasone-Umecli dinium-Vilanterol) Inhale 1 Puff by mouth in the morning. 60 Blister Dosing Unit 5 11/15/2023 Active HYDROcodone-Acetami nophen 5-325 MG Oral TabletIndications:F oraminal stenosis of lumbar region Take 1 Tablet by mouth every 6 hours as needed for Pain, Moderate. 20 Tablet 12/08/2023 Active Additional Information Patient not taking.Reported on 02/28/2024 Ezetimibe 10 MG Oral Tablet (Zetia)Indications: High triglycerides TAKE 1 TABLET BY MOUTH EVERY DAY IN THE MORNING 90 Tablet 3 01/07/2024 Active Aspirin Low Dose 81 MG Oral Tablet Delayed Release (aspirin enteric coated)Indications: High triglycerides TAKE 1 TABLET BY MOUTH EVERY DAY IN THE MORNING 90 Tablet 3 01/07/2024 Active Acetaminophen 325 MG Oral Tablet (Tylenol) Take 3 Tablets by mouth daily as needed. Active Sacubitril-Valsarta n 97-103 MG Oral Tablet (Entresto) Take 1 Tablet by mouth in the morning and 1 Tablet before bedtime. 180 Tablet 1 02/21/2024 Active Furosemide 40 MG Oral Tablet (Lasix)Indications: Acute systolic congestive heart failure, NYHA class 1 (HCC),Essential (primary) hypertension Take 1 Tablet by mouth in the morning. 90 Tablet 3 02/22/2024 Active Metoprolol Succinate ER 25 MG Oral Tablet Extended Release 24 Hour (toPROL XL)Indications:Dysl ipidemia, goal LDL below 100,Essential (primary) hypertension,Old myocardial infarction Take 1 Tablet by mouth in the morning and 1 Tablet before bedtime. Take with 50 mg tablet to equal 75 mg twice daily. 180 Tablet 3 02/24/2024 Active Metoprolol Succinate ER 50 MG Oral Tablet Extended Release 24 Hour (toPROL XL)Indications:Dysl ipidemia, goal LDL below 100,Essential (primary) hypertension,Old myocardial infarction Take 1 Tablet by mouth in the morning and 1 Tablet before bedtime. 180 Tablet 3 02/24/2024 Active Rosuvastatin Calcium 10 MG Oral Tablet (Crestor) Take 1 Tablet by mouth in the morning. 90 Tablet 3 02/24/2024 Active Amiodarone HCl 200 MG Oral Tablet (Cordarone) Take 1 Tablet by mouth in the morning. 90 Tablet 3 03/07/2024 Active Gabapentin 100 MG Oral Capsule (Neurontin)Indicati ons:Spinal stenosis of lumbar region with neurogenic claudication Take 2 capsules by mouth at night for 5 days then increase to 2 capsules by mouth twice daily. If no side effects after 3-4 weeks, call Dr. Medina for dose increase. 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 06/22/2023 History of cerebral infarction 06/22/2023 Overview: 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 Neuropathy 05/17/2023 Infrarenal abdominal aortic aneurysm (AAA) witho ut rupture 11/18/2022 Carotid stenosis, non-symptomatic, bilateral 09/2022 PVD (peripheral vascular disease) 10/07/2022 Pulmonary fibrosis 08/07/2021 Lung nodule 05/30/2021 Overview: Repeat CT in 12/07 Abdominal aortic ectasia 02/19/2021 Overview: Recheck 03/10 Coronary artery disease of n ative artery of [place] heart with stable angina pectoris 09/19/2020 Essential [...] as of this encounter (statuses as of 05/09/2024) Resolved Problems Problem Noted Date Diagnosed Date Resolved Date Aneurysm of aorta 05/17/2023 12/08/2023 Old myocardial infarction 05/17/2023 Tinea pedis of both feet 11/18/2022 Atherosclerosis of [place] co ronary artery without angina pectoris 09/15/2022 12/08/2023 Coronary artery disease invo lving coronary bypass graft of [place] heart 03/07/2020 12/08/2023 Neuropathic foot ulcer, righ t, with fat layer exposed 08/17/2019 02/11/2021 Oral cancer 08/13/2015 08/17/2019 Overview: 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 documented as of this encounter (statuses as of 05/09/2024) Immunizations Name Administration Dates Next Due COVID-19 mRNA, LNP-s, No Pre serve, 2-Dose Series ([employer])) 05/27/2021,10/10/2020,09/12/2020 Covid-19, Mrna, Lnp-s, Pf, B ivalent, 30 Mcg, IM, 12 yrs and above ([employer])) 06/23/2022 Pneumococcal Conjugate Vacci ne, 20-valent ([id number]) 07/03/2022 Pneumococcal Polysaccharide PPV23 (Pneumovax) 06/17/2021,04/01/2006 Seasonal [...] No 08/11/2023 Does the household have a [facility] source of income? (Household - for ages [...] Assigned at Male 08/11/2023 12:15 PM EST Gender Identity Male 08/11/2023 12:15 PM EST Sexual Orientation Straight 08/11/2023 12 :15 PM EST Job Start Date Occupation Industry Not on file Not on file Not on file documented as of this encounter Functional Status Functional Status Response Date of Assess ment Are you deaf or do you have serious difficulty h earing? No 07/05/2023 Are you blind or do you have serious difficulty seeing, even when wearing glasses? No 07/05/2023 Do you have serious difficul ty walking or climbing stairs? (5 years old or older) No 07/05/2023 Do you have difficulty dress ing or bathing? (5 years old or older) No 07/05/2023 Because of a physical, menta l, or emotional condition, do you have difficulty doing errands alone such as visiting a doctor s office or shopping? (15 years old or older) No 07/05/20 Cognitive Status Response Date of Assessm ent Because of a physical, menta l, or emotional condition, do you have serious difficulty concentrating, remembering, or making decisions? (5 years old or older) No 07/05/2023 documented as of this encounter Miscellaneous Notes * Telephone Encounter - Shelby Meredith LPN - 05/09/2024 1:35 PM EDT MyG message sent to patient regarding cancellation of [facility] appointment 06/13/2024. Patient is monitored remotely, IOC not indicated at this time. documented in this encounter Plan of Treatment Upcoming Encounters Date Type Department Care Team (Late st Contact Info) Description 06/05/2024 12:40 PM EST Office Visit Pulmonary Medicine, [facility] [address] [place] [address] [facility] [address] [facility] [address] 06/08/2024 12:55 PM EST Hospital Encounter OR [facility], Operating Room [facility] [address] [place] [phone] Tal Medina, [address] [place] [phone] 06/08/2024 12:55 PM EST - 06/08/2024 1:20 PM EST Surgery [facility], Operating Room [facility] [address] [place] [phone] Tal Medina, [address] [place] [phone] L-/S-SPINE PARAVERTEBRAL FACET INJ, 1 LEVEL 06/13/2024 11:30 AM EST Office Visit Cardiology, [facility] [address] [place] [address] Víctor Mcclain MD [address] [place] [address] 06/13/2024 11:30 AM EST Cardiac Studies Cardiology, [facility] [address] [place] [address] Rejiallfarideh Pacer Clinic [facility] [place] [address] 07/17/2024 12:40 PM EST Office Visit Family Practice [facility] [address] [place] [address] Rohan Mckenzie, DO 200 [facility] [place] [address] 08/15/2024 1:00 PM EST Nurse Only Ancillary [facility] [address] [place] [address] Park, Nurse Annual Wellness [facility] [address] [facility] [place] [address] 12/01/2024 1:30 PM EDT Office Visit Cardiology, [facility] [place] [address] Cindy Monte CRNP [address] [facility] [place] [address] 01/24/2025 1:15 PM EDT Office Visit OphthalmologyJordy [address] [address] Abilio Hensley DO [address] [address] Scheduled Procedures Name Priority Associated Diagnoses Date/Ti me L-/S-SPINE PARAVERTEBRAL FACET INJ, 1 LEVEL Spondylosis of lumbar region without myelopathy or radiculopathy 06/08/2024 12:55 PM EST L-/S-SPINE PARAVERTEBRAL FACET INJ, 2 LEVELS Spondylosis of lumbar region without myelopathy or radiculopathy 06/08/2024 12:55 PM EST COLONOSCOPY FLEXIBLE PROXIMAL [...] this encounter Medical Devices Implanted Type Area Tank Crewmember Device Identifier Shelf Expiration Date Model / Serial / Lot Lens 17.5 Sn60wf - [id number] Implanted:Qty : 1 on 06/27/2014 by Rich Brooks MD at OR [facility] Right: Eye [employer] 03/18/2019 SN60WF.17 5 / [id number] / Lens 18.0 Sn60wf - [id number] - [id number] Implanted:Qty : 1 on 07/22/2022 by Abilio Hensley DO at OR [facility] Left: Eye [employer] : SURGICAL 11/16/2023 SN60WF.1 8 0 / [id number] / Patch Xenosure [id number] - [id number] Implanted:Qty : 1 on 12/24/2022 by Jean Garcia MD [place] [facility] [place]: Femoral Artery [employer] [id number] 08/15/2028 E0.8P8 / [id number] / [id number] Patch Xenosure [id number] - [id number] - [id number] Implanted:Qty : 1 on 07/05/2023 by Jean Garcia MD [place] [facility] [place]: Carotid [employer] [id number] 01/13/2029 E0.8P8 / [id number] / [id number] documented as of this encounter Advance Directives [...] the patient have Health Care Power of Cash Room Clerk? No * Full Code Date Activated Date [...] and were consensually agreed upon. Care Teams Chief Credit Officer Relationship Specialty Start Date End Date Rohan Mckenzie DO [address] [place] [address] PCP - General Family Medicine 05/27/16 documented as of this encounter
--- OUTSIDE RECORDS SUMMARY | 2024-08-04 01:35 | External Medical Summary | Summary of Care ---
Author Name Unknown Organization [facility] Address [address] [facility] [address] Phone [phone] Care Team Providers Care Brick Pitcher Name Role Phone Rohan Mckenzie DO Primary Care Provider [phone] Reason for Visit * Reason Comments eRx-Medication Refill Encounter Details Date Type Department Care Team (Late st Contact Info) Description 05/06/2024 Refill Cardiology, [facility] [address] [place] [address] Víctor Mcclain MD [address] [place] [address] Allergies Active Allergy Reactions Criticality Noted Date [...] 08/02/2023 Active Additional Information Patient taking differently: [id number], Reported on 01/18/2024 Albuterol Sulfate HFA 108 (90 Base) MCG/ACT Inhalation Aerosol SolutionIndications :Pulmonary fibrosis (HCC),Lung nodule,PVD (peripheral vascular disease) (HCC) [...] artery disease of n ative artery of [place] heart with stable angina pectoris 09/19/2020 Essential [...] pedis of both feet 11/18/2022 Atherosclerosis of [place] co ronary artery without angina pectoris 09/15/2022 12/08/2023 Coronary artery disease invo lving coronary bypass graft of [place] heart 03/07/2020 12/08/2023 Neuropathic foot ulcer, righ [...] DIS NOS 07/05/2002 hypercholesterol 07/05/2002 12/08/2023 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 documented as of this encounter (statuses as of 05/09/2024) Immunizations Name Administration Dates Next Due COVID-19 mRNA, LNP-s, No Pre serve, 2-Dose Series ([employer]) 05/27/2021,10/10/2020,09/12/2020 Covid-19, Mrna, Lnp-s, Pf, B ivalent, 30 Mcg, IM, 12 yrs and above ([employer]) 06/23/2022 Pneumococcal Conjugate Vacci ne, 20-valent ([id number]) 07/03/2022 Pneumococcal Polysaccharide PPV23 (Pneumovax) 06/17/2021,04/01/2006 Seasonal [...] encounter Miscellaneous Notes * Telephone Encounter - Hailey Farias RPh - 05/09/2024 1:35 PM EDTRefused Prescriptions: Disp Refills Amiodarone HCl 200 MG Oral Tablet (Cordaro*180 Ta* Sig: TAKE 1 TABLET BY MOUTH 2 TIMES A DAY WITH MORNING AND EVENING MEALSRefused By: Yolanda FARIAS for Refusal: Too soon * Telephone Encounter - Hailey Farias RPh - 05/09/2024 1:20 PM EDT Refill sent by provider in TE from 03/06. Refill sent for amiodarone 200 mg daily. Thanks, Hailey Farias, PharmD Clinical Pharmacist [facility]) 05/09/2024, 1:20 PM documented in this encounter Plan of Treatment Upcoming Encounters Date Type Department Care Team (Late st Contact Info) Description 06/05/2024 12:40 PM EST Office Visit Pulmonary Medicine, [facility] [address] [place] [address] Dom Grossman MD [address] [facility] [phone] 06/08/2024 12:55 PM EST Hospital Encounter [facility], Operating Room [facility] [address] [place], [place] [address] [phone] Tal Medina DO [address] [place] [address] 06/08/2024 12:55 PM EST - 06/08/2024 1:20 PM EST Surgery [place] [facility], Operating Room [facility] [address] [place] [phone] Tal Medina, DO [address] [place] [phone] L-/S-SPINE PARAVERTEBRAL FACET INJ, 1 LEVEL 06/13/2024 11:30 AM EST Office Visit Cardiology, [facility] [address] [place] [address] Víctor Mcclain MD [address] [place] [address] 06/13/2024 11:30 AM EST Cardiac Studies Cardiology, [facility] [address] [place] [address] [facility] [address] [place] [address] 07/17/2024 12:40 PM EST Office Visit Family Practice [facility] [address] [place] [address] Rohan Mckenzie, DO [address] [place] [address] 08/15/2024 1:00 PM EST Nurse Only Ancillary [facility] [address] [place] [address] Vanessa, Nurse Annual Wellness [facility] [address] [place] [address] 12/01/2024 1:30 PM EDT Office Visit Cardiology, [facility] [address] [place] [address] Cindy Monte CRNP [address] [place] [address] 01/24/2025 1:15 PM EDT Office Visit Ophthalmology, [place] [address] [place] [address] Abilio Hensley DO [address] [place] [address] Scheduled Procedures Name Priority Associated Diagnoses Date/Ti [...] this encounter Medical Devices Implanted Type Area Valance Cutter Device Identifier Shelf Expiration Date Model / Serial / Lot Lens 17.5 Sn60wf - [id number] Implanted:Qty : 1 on 06/27/2014 by Rich Brooks MD at OR [facility] Right: Eye [employer] 03/18/2019 SN60WF.17 5 / [id number] / Lens 18.0 Sn60wf - [id number] - [id number] Implanted:Qty : 1 on 07/22/2022 by Abilio Hensley DO at OR [facility] Left: Eye MIRIAN : SURGICAL 11/16/2023 SN60WF.1 8 0 / [id number] / Patch Xenosure 0.8lnr0bn - [id number] Implanted:Qty : 1 on 12/24/2022 by Jean Garcia MD [place] [facility] [place]: Femoral Artery [employer] [id number] 08/15/2028 E0.8P8 / [id number] / [id number] Patch Xenosure 0.3jyq7mu - [id number] - [id number] Implanted:Qty : 1 on 07/05/2023 by Jean Garcia MD [place] [facility] Left: Carotid [employer] [id number] 01/13/2029 E0.8P8 / [id number] / [id number] documented as of this encounter Advance Directives [...] the patient have Health Care Power of Crusher Tender? No * Full Code Date Activated Date [...] were consensually agreed upon. Care Teams Brick Pitcher Relationship Specialty Start Date End Date Rohan Mckenzie DO [address] [place] [address] PCP - General Family Medicine 05/27/16 documented as of this encounter
--- OUTSIDE RECORDS SUMMARY | 2024-08-04 01:36 | External Medical Summary | Summary of Care ---
Author Name Unknown Organization [facility] Address [address] [facility] [address] Phone [phone] Care Team Providers Care Debridging Machine Operator Name Role Phone Rohan Mckenize DO Primary Care Provider [phone] Reason for Visit * Reason Onset Date Comments case management 04/25/2024 Encounter Details Date Type Department Care Team (Late st Contact Info) Description 04/25/2024 Telephone Pulmonary Medicine, [facility] 132 [facility] [place] [phone] Dom Grossman MD [address] [facility] [place] [phone] case management Allergies Active Allergy Reactions Criticality Noted Date Comments Spironolactone Other (Please comment) Medium Undesired breast changes/pain documented as of this encounter (statuses as of 04/26/2024) Medications Medication Sig Dispensed Refills Start Date [...] 08/02/2023 Active Additional Information Patient taking differently: [id number], Reported on 01/18/2024 Albuterol Sulfate HFA 108 (90 Base) MCG/ACT Inhalation Aerosol SolutionIndications :Pulmonary fibrosis (HCC),Lung nodule,PVD (peripheral vascular disease) ([facility]) TAKE 2 PUFFS BY MOUTH EVERY 6 [...] THE MORNING 90 Tablet 3 04/10/2024 Active Hospital, Clinic, or Other Facility Administered Medication Ordered Dose Route Frequency Start Date End Date Status Albuterol Sulfate (Proventil) (2.5 MG/3ML) 0.083% inhalation solution 2.5 mgIndications:Dyspnea on exertion 2.5 mg NEBULIZER ONCE PRN 05/06/2023 05/05/2024 Active documented as of this encounter (statuses as of 04/26/2024) Active Problems Problem Noted Date Diagnosed Date [...] artery disease of n ative artery of [place] heart with stable angina pectoris 09/19/2020 Essential [...] as of this encounter (statuses as of 04/26/2024) Resolved Problems Problem Noted Date Diagnosed Date Resolved Date Aneurysm of aorta 05/17/2023 12/08/2023 Old myocardial infarction 05/17/2023 Tinea pedis of both feet 11/18/2022 Atherosclerosis of [place] co ronary artery without angina pectoris 09/15/2022 12/08/2023 Coronary artery disease invo lving coronary bypass graft of [place] heart 03/07/2020 12/08/2023 Neuropathic foot ulcer, righ [...] DIS NOS 07/05/2002 hypercholesterol 07/05/2002 12/08/2023 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 documented as of this encounter (statuses as of 04/26/2024) Immunizations Name Administration Dates Next Due COVID-19 mRNA, LNP-s, No Pre serve, 2-Dose Series ([employer]) 05/27/2021,10/10/2020,09/12/2020 Covid-19, Mrna, Lnp-s, Pf, B ivalent, 30 Mcg, IM, 12 yrs and above ([employer]) 06/23/2022 Pneumococcal Conjugate Vacci ne, 20-valent ([id number]) 07/03/2022 Pneumococcal Polysaccharide PPV23 (Pneumovax) 06/17/2021,04/01/2006 Seasonal Influenza Vac., MDV , IM, 0.5 mL (Fluzone) 03/26/2014,04/08/2013,04/14/2011,04/30,06/12/2009,05/29/2008,05/05/2007 ,06/15/2006 Seasonal Influenza, High Dos e, Trivalent, PF, [...] encounter Miscellaneous Notes * Telephone Encounter - Leonela Enciso RN - 04/25/2024 3:23 PM EDT Spoke with patient on the phone today. He states that he has had multiple issues with getting his PleurX Catheter bottles from [employer]. He was supposed to receive a shipment yesterday and he [facility] and they said that he was not due for a shipment until the 05 of May. He will be leaving for [place] this weekend and will not have any Pleurex Bottles. Called several different companies and [facility] is able to supply Pleurex bottles. They will ship 10 bottles. Their phone number is [phone]. Fax number is [phone] Dr Grossman please see above. DME order placed. Will fax to [facility]. documented in this encounter Plan of Treatment Upcoming Encounters Date Type Department Care Team (Late st Contact Info) Description 06/05/2024 12:40 PM EST Office Visit Pulmonary Medicine, [facility] [address] [place] [address] Dom Grossman MD [facility] S [facility] [place] [address] 06/08/2024 12:55 PM EST Hospital Encounter [facility], Operating Room OSHP [address] [place] [phone] Tal Medina, [address] [place] [phone] 06/08/2024 12:55 PM EST - 06/08/2024 1:20 PM EST Surgery [facility], Operating Room O[facility] [address] [place] [phone] Tal Medina, [address] [place] [phone] L-/S-SPINE PARAVERTEBRAL FACET INJ, 1 LEVEL 06/13/2024 11:30 AM EST Office Visit Cardiology, [facility] 132 [facility] [place] [address] Víctor Mcclain MD 132 [facility] [place] [address] 06/13/2024 11:30 AM EST Cardiac Studies Cardiology, [facility] 132 [facility] [place] [address] [facility] 132 [facility] [place] [address] 07/17/2024 12:40 PM EST Office Visit Family Practice [facility] 200 [place] [address] Rohan Mckenzie, DO [address] [facility] [place] [address] 08/15/2024 1:00 PM EST Nurse Only Ancillary [facility] 200 [facility] [place] [address] [place], Nurse Annual Wellness [facility] [address] [facility] [place] [address] 12/01/2024 1:30 PM EDT Office Visit Cardiology, [facility] 132 [facility] [place] [address] Cindy Monte CRNP 400 [facility] [place] [address] 01/24/2025 1:15 PM EDT Office Visit Ophthalmology, [place] [address] [place] [address] Abilio Hensley DO [address] [place] [address] Scheduled Procedures Name Priority Associated Diagnoses Date/Ti [...] 04/01/2006 Influenza Vaccine (FLU shot) Completed 04/21/2024, 04/07/2023, 04/08/2022, Additional history exists HPV (Gardasil) Vaccine Aged Out No lo nger eligible based on patient's age to complete this topic Hepatitis B Vaccine Aged Out No longe r eligible based on patient's age to complete this topic MENINGOCOCCAL (MENACTRA/MENVEO) Aged Out No longer eligible based on patient's age to complete this topic documented as of this encounter Medical Devices Implanted Type Area Video Intern Device Identifier Shelf Expiration Date Model / Serial / Lot Lens 17.5 Sn60wf - [id number] Implanted:Qty : 1 on 06/27/2014 by Rich Brooks MD at [facility] Right: Eye [employer] 03/18/2019 SN60WF.17 5 / [id number] / Lens 18.0 Sn60wf - [id number] - [id number] Implanted:Qty : 1 on 07/22/2022 by Abilio Hensley DO at [facility] Left: Eye MIRIAN : SURGICAL 11/16/2023 SN60WF.1 8 0 / [id number] / Patch Xenosure 0.0sjg9ul - [id number] Implanted:Qty : 1 on 12/24/2022 by Jean Garcia MD [place] [facility] Left: Femoral Artery [employer] [id number] 08/15/2028 E0.8P8 / [id number] / [id number] Patch Xenosure 0.5ojp3hc - [id number] - [id number] Implanted:Qty : 1 on 07/05/2023 by Jean Garcia MD [place] [facility] Left: Carotid [employer] [id number] 01/13/2029 E0.8P8 / [id number] / [id number] documented as of this encounter Visit Diagnoses Diagnosis Need for case management follow-up- Primary Pleural effusion on right Unspecified pleural effusion Spondylosis of lumbar region without myelopathy or radiculopathy Lumbosacral spondylosis without myelopathy documented in this encounter Advance Directives * [...] the patient have Health Care Power of Digital Artist? No * Full Code Date Activated Date [...] and were consensually agreed upon. Care Teams Debridging Machine Operator Relationship Specialty Start Date End Date Rohan Mckenzie DO [address] [place] [address] PCP - General Family Medicine 05/27/16 documented as of this encounter
--- OUTSIDE RECORDS SUMMARY | 2024-08-04 01:36 | External Medical Summary | Summary of Care ---
Author Name Unknown Organization [facility] Address [address] [facility] [place] [address] Phone [phone] Care Team Providers Care Vehicle Return Associate Name Role Phone Rohan Mckenzie DO Primary Care Provider [phone] Reason for Visit * Reason Onset Date Comments case management 04/25/2024 Encounter Details Date Type Department Care Team (Late st Contact Info) Description 04/25/2024 Telephone Pulmonary Medicine, [facility] 132 [facility] [place] [phone] Dom Grossman MD [address] [facility] [place] [phone] case management Allergies Active Allergy Reactions Criticality Noted Date Comments Spironolactone Other (Please comment) Medium Undesired breast changes/pain documented as of this encounter (statuses as of 04/25/2024) Medications Medication Sig Dispensed Refills Start Date [...] 08/02/2023 Active Additional Information Patient taking differently: [id number], Reported on 01/18/2024 Albuterol Sulfate HFA 108 (90 Base) MCG/ACT Inhalation Aerosol SolutionIndications :Pulmonary fibrosis (HCC),Lung nodule,PVD (peripheral vascular disease) ([facility]) TAKE 2 PUFFS BY MOUTH [...] as of this encounter (statuses as of 04/25/2024) Active Problems Problem Noted Date Diagnosed Date [...] artery disease of n ative artery of [place] heart with stable angina pectoris 09/19/2020 Essential [...] as of this encounter (statuses as of 04/25/2024) Resolved Problems Problem Noted Date Diagnosed Date Resolved Date Aneurysm of aorta 05/17/2023 12/08/2023 Old myocardial infarction 05/17/2023 Tinea pedis of both feet 11/18/2022 Atherosclerosis of [place] co ronary artery without angina pectoris 09/15/2022 12/08/2023 Coronary artery disease invo lving coronary bypass graft of [place] heart 03/07/2020 12/08/2023 Neuropathic foot ulcer, righ [...] wall [place] [facility] documented as of this encounter (statuses as of 04/25/2024) Immunizations Name Administration Dates Next Due COVID-19 mRNA, LNP-s, No Pre serve, 2-Dose Series ([employer]) 05/27/2021,10/10/2020,09/12/2020 Covid-19, Mrna, Lnp-s, Pf, B ivalent, 30 Mcg, IM, 12 yrs and above ([employer]) 06/23/2022 Pneumococcal Conjugate Vacci ne, 20-valent ([id number]) 07/03/2022 Pneumococcal Polysaccharide PPV23 (Pneumovax) 06/17/2021,04/01/2006 Seasonal [...] with getting his PleurX Catheter bottles from [employer]. He was supposed to receive a shipment yesterday and he [facility] and they said that he was not due for a shipment until the 05 of May. He will be leaving for [place] this weekend and will not have any Pleurex Bottles. Called several different companies and [facility] is able to supply Pleurex bottles. They will ship 10 bottles. Their phone number is [phone]. Fax number is [phone] Dr Grossman please see above. DME order placed. Will fax to [facility]. documented in this encounter Plan of Treatment Upcoming Encounters Date Type Department Care Team (Late st Contact Info) Description 06/05/2024 12:40 PM EST Office Visit Pulmonary Medicine, [facility] [address] [place] [address] Dom Grossman MD [facility] S [facility] [place] [address] 06/08/2024 12:55 PM EST Hospital Encounter [facility], Operating Room OSHP [address] [place] [phone] Tal Medina, [address] [place] [phone] 06/08/2024 12:55 PM EST - 06/08/2024 1:20 PM EST Surgery [facility], Operating Room [facility] [address] [place] [phone] Tal Medina, [address] [place] [phone] L-/S-SPINE PARAVERTEBRAL FACET INJ, 1 LEVEL 06/13/2024 11:30 AM EST Office Visit Cardiology, [facility] 132 [facility] [place] [address] Víctor Mcclain MD 132 [facility] [place] [address] 06/13/2024 11:30 AM EST Cardiac Studies Cardiology, [facility] 132 [facility] [place] [address] [facility] 132 [facility] [place] [address] 07/17/2024 12:40 PM EST Office Visit Family Practice [facility] 200 [facility] [place] [address] Rohan Mckenzie, DO 200 [facility] [place] [address] 08/15/2024 1:00 PM EST Nurse Only Ancillary [facility] 200 [facility] [place] [address] [place], Nurse Annual Wellness [facility] 200 [facility] [place] [address] 12/01/2024 1:30 PM EDT Office Visit Cardiology, [facility] 132 [facility] [place] [address] Cindy Monte CRNP 400 [facility] [place] [address] 01/24/2025 1:15 PM EDT Office Visit Ophthalmology, [place] [address] [address] Abilio Hensley DO [address] [place] [address] Scheduled Procedures Name Priority Associated Diagnoses Date/Ti [...] this encounter Medical Devices Implanted Type Area Pigment And Lacquer Mixer Device Identifier Shelf Expiration Date Model / Serial / Lot Lens 17.5 Sn60wf - [id number] Implanted:Qty : 1 on 06/27/2014 by Rich Brooks MD at OR [facility] Right: Eye [employer] 03/18/2019 SN60WF.17 5 / [id number] / Lens 18.0 Sn60wf - [id number] - [id number] Implanted:Qty : 1 on 07/22/2022 by Abilio Hensley DO at OR [facility] Left: Eye MIRIAN : SURGICAL 11/16/2023 SN60WF.1 8 0 / [id number] / Patch Xenosure 0.2yay2gj - [id number] Implanted:Qty : 1 on 12/24/2022 by Jean Garcia MD [place] [facility] Left: Femoral Artery [employer] [id number] 08/15/2028 E0.8P8 / [id number] / [id number] Patch Xenosure 0.9ldt6sm - [id number] - [id number] Implanted:Qty : 1 on 07/05/2023 by Jean Garcia MD [place] [facility] Left: Carotid [employer] [id number] 01/13/2029 E0.8P8 / [id number] / [id number] documented as of this encounter Visit Diagnoses [...] the patient have Health Care Power of Primer Waterproofing Machine Operator? No * Full Code Date Activated [...] and were consensually agreed upon. Care Teams Vehicle Return Associate Relationship Specialty Start Date End Date Rohan Mckenzie DO [address] [place] [address] PCP - General Family Medicine 05/27/16 documented as of this encounter
--- OUTSIDE RECORDS SUMMARY | 2024-08-04 01:36 | External Medical Summary | Summary of Care ---
Author Name Unknown Organization [facility] Address [address] [facility] [address] Phone [phone] Care Team Providers Care Galley Stripper Name Role Phone Rohan Mckenzie DO Primary Care Provider [phone] Reason for Visit * Reason Onset Date Comments case management 04/25/2024 Encounter Details Date Type Department Care Team (Late st Contact Info) Description 04/25/2024 Telephone Pulmonary Medicine, [facility] [address] [facility] [place] [phone] Dom Grossman MD [address] [facility] [place] [phone] case management Allergies Active Allergy Reactions Criticality [...] 08/02/2023 Active Additional Information Patient taking differently: [id number], Reported on 01/18/2024 Albuterol Sulfate HFA 108 (90 Base) MCG/ACT Inhalation Aerosol SolutionIndications :Pulmonary fibrosis (HCC),Lung nodule,PVD (peripheral vascular disease) ([facility]) TAKE 2 PUFFS BY MOUTH EVERY 6 [...] artery disease of n ative artery of [place] heart with stable angina pectoris 09/19/2020 Essential [...] pedis of both feet 11/18/2022 Atherosclerosis of [place] ronary artery without angina pectoris 09/15/2022 12/08/2023 Coronary artery disease invo lving coronary bypass graft of [place] heart 03/07/2020 12/08/2023 Neuropathic foot ulcer, righ [...] DIS NOS 07/05/2002 hypercholesterol 07/05/2002 12/08/2023 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 documented as of this encounter (statuses as of 04/26/2024) Immunizations Name Administration Dates Next Due COVID-19 mRNA, LNP-s, No Pre serve, 2-Dose Series (Mapittrackit) 05/27/2021,10/10/2020,09/12/2020 Covid-19, Mrna, Lnp-s, Pf, B ivalent, 30 Mcg, IM, 12 yrs and above ([employer]itt[employer]it) 06/23/2022 Pneumococcal Conjugate Vacci ne, 20-valent (Zcfspsn12) 07/03/2022 Pneumococcal Polysaccharide PPV23 (Pneumovax) 06/17/2021,04/01/2006 Seasonal [...] with getting his Ple[place]X Catheter bottles from [place]. [place] they said that he was not due for a shipment until the 05 of May. He will be leaving for [place] this weekend and will not have any Pleurex Bottles. Called several different companies and [facility] [place] is able to supply Pleurex bottles. They will ship 10 bottles. Their phone number is [phone]. Fax number is [phone] Dr Grossman please see above. DME order placed. Will fax to Antonio Mendez. documented in this encounter Plan of Treatment Upcoming Encounters Date Type Department Care Team (Late st Contact Info) Description 06/05/2024 12:40 PM EST Office Visit Pulmonary Medicine, [facility] [address] [place] [address] Dom Grossman MD [facility] [place] [address] 06/08/2024 12:55 PM EST Hospital Encounter [facility], Operating Room [facility] [address] [place] [phone] Tal Medina, [address] [place] [phone] 06/08/2024 12:55 PM EST - 06/08/2024 1:20 PM EST Surgery [facility], Operating Room [facility] [address] [place] [phone] Tal Medina, [address] [place] [phone] L-/S-SPINE PARAVERTEBRAL FACET INJ, 1 LEVEL 06/13/2024 11:30 AM EST Office Visit Cardiology, [facility] 132 [facility] [place] [address] Víctor Mcclain MD 132 [facility] [place] [address] 06/13/2024 11:30 AM EST Cardiac Studies Cardiology, [facility] [address] [facility] [place] [address] [facility] 132 [facility] [place] [address] 07/17/2024 12:40 PM EST Office Visit Family Practice [facility] 200 [facility] [place] [address] Rohan Mckenzie, DO 200 [facility] [place] [address] 08/15/2024 1:00 PM EST Nurse Only Ancillary [facility] 200 [facility] [place] [address] [place], Nurse Annual Wellness [facility] 200 [facility] [place] [address] 12/01/2024 1:30 PM EDT Office Visit Cardiology, [facility] [address] [facility] [place] [address] Cindy Monte CRNP 400 [facility] [place] [address] 01/24/2025 1:15 PM EDT Office Visit Ophthalmology, [place] [address] [place] [address] Abilio Hensley DO [address] [place] [address] Scheduled Procedures Name Priority Associated Diagnoses Date/Ti [...] this encounter Medical Devices Implanted Type Area Accordion Maker Device Identifier Shelf Expiration Date Model / Serial / Lot Lens 17.5 Sn60wf - [id number] Implanted:Qty : 1 on 06/27/2014 by Rich Brooks MD at OR [facility] Right: Eye [employer] 03/18/2019 SN60WF.17 5 / [id number] / Lens 18.0 Sn60wf - [id number] - [id number] Implanted:Qty : 1 on 07/22/2022 by Abilio Hensley DO at OR [facility] Left: Eye MIRIAN : SURGICAL 11/16/2023 SN60WF.1 8 0 / [id number] / Patch Xenosure 0.6deb3ap - [id number] Implanted:Qty : 1 on 12/24/2022 by Jean Garcia MD at [place] [facility] Left: Femoral Artery [employer] [id number] 08/15/2028 E0.8P8 / [id number] / [id number] Patch Xenosure 0.8hwg1cb - [id number] - [id number] Implanted:Qty : 1 on 07/05/2023 by Jean Garcia MD at OR [facility] Left: Carotid [employer] [id number] 01/13/2029 E0.8P8 / [id number] / [id number] documented as of this encounter Visit Diagnoses [...] the patient have Health Care Power of Forest Logistics Manager? No * Full Code Date Activated Date [...] and were consensually agreed upon. Care Teams Galley Stripper Relationship Specialty Start Date End Date Rohan Mckenzie DO [address] [place] [address] PCP - General Family Medicine 05/27/16 documented as of this encounter
--- OUTSIDE RECORDS SUMMARY | 2024-08-04 01:36 | External Medical Summary | Summary of Care ---
Author Name Unknown Organization [facility] Address [address] [facility] [place] [address] Phone [phone] Care Team Providers Care Buffer Automatic Name Role Phone Jordan Mckenziee Brittney CESPEDES Primary Care Provider [phone] Encounter Details Date Type Department Care Team (Late st Contact Info) Description 05/02/2024 Population Health External Data Unspecified Department Allergies Active Allergy Reactions Criticality Noted Date Comments Spironolactone Other (Please comment) Medium Undesired breast changes/pain documented as of this encounter (statuses as of 05/03/2024) Medications Medication Sig Dispensed Refills Start Date [...] 08/02/2023 Active Additional Information Patient taking differently: [id number], Reported on 01/18/2024 Albuterol Sulfate HFA 108 (90 Base) MCG/ACT Inhalation Aerosol SolutionIndications :Pulmonary fibrosis (HCC),Lung nodule,PVD (peripheral vascular disease) ([facility]) TAKE 2 PUFFS BY MOUTH EVERY 6 [...] as of this encounter (statuses as of 05/03/2024) Active Problems Problem Noted Date Diagnosed Date [...] as of this encounter (statuses as of 05/03/2024) Resolved Problems Problem Noted Date Diagnosed Date Resolved Date Aneurysm of aorta 05/17/2023 12/08/2023 Old myocardial infarction 05/17/2023 Tinea pedis of both feet 11/18/2022 Atherosclerosis of [place] co ronary artery without angina pectoris 09/15/2022 12/08/2023 Coronary artery disease invo lving coronary bypass graft of [place] heart 03/07/2020 12/08/2023 Neuropathic foot ulcer, [...] DIS NOS 07/05/2002 hypercholesterol 07/05/2002 12/08/2023 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 documented as of this encounter (statuses as of 05/03/2024) Immunizations Name Administration Dates Next Due COVID-19 mRNA, LNP-s, No Pre serve, 2-Dose Series (ReferStar) 05/27/2021,10/10/2020,09/12/2020 Covid-19, Mrna, Lnp-s, Pf, B ivalent, 30 Mcg, IM, 12 yrs and above ([employer]erStar) 06/23/2022 Pneumococcal Conjugate Vacci ne, 20-valent (Hsomebm17) 07/03/2022 Pneumococcal Polysaccharide PPV23 (Pneumovax) 06/17/2021,04/01/2006 Seasonal [...] No 07/05/2023 documented as of this encounter Plan of Treatment Upcoming Encounters Date Type Department Care Team (Late st Contact Info) Description 06/05/2024 12:40 PM EST Office Visit Pulmonary Medicine, [facility] 132 [facility] [place] [address] Dom Grossman MD [address] [facility] [address] 06/08/2024 12:55 PM EST Hospital Encounter [facility] O[facility], Operating Room O[facility]P [address] [place] [phone] Tal Medina, DO [address] [place] [phone] 06/08/2024 12:55 PM EST - 06/08/2024 1:20 PM EST Surgery [place] [facility], Operating Room OSHP [address] [place] [phone] Tal Medina, DO [address] [place] [phone] L-/S-SPINE PARAVERTEBRAL FACET INJ, 1 LEVEL 06/13/2024 11:30 AM EST Office Visit Cardiology, [facility] [address] [place] [address] Víctor Mcclain MD [address] [place] [address] 06/13/2024 11:30 AM EST Cardiac Studies Cardiology, [facility] [address] [place] [address] [facility] [address] [place] [address] 07/17/2024 12:40 PM EST Office Visit Family Practice [facility] [place]essa [place] [address] [place] [address] [place] [address] Rohan Mckenzie, DO [address] [place] [address] [place] [address] 08/15/2024 1:00 PM EST Nurse Only Ancillary [facility] [place] [address] [place] [address] [place], Nurse Annual Wellness [facility] [address] [place] [address] 12/01/2024 1:30 PM EDT Office Visit Cardiology, [facility] [address] [place] [address] Cindy Monte CRNP [facility] [address] 01/24/2025 1:15 PM EDT Office Visit Ophthalmology, [place] [address] [place] [address] Abilio Hensley DO [address] [place] [address] Scheduled Procedures Name Priority Associated Diagnoses Date/Ti [...] this encounter Medical Devices Implanted Type Area Bungy Jump Master Device Identifier Shelf Expiration Date Model / Serial / Lot Lens 17.5 Sn60wf - [id number] Implanted:Qty : 1 on 06/27/2014 by Rich Brooks MD at OR [facility] Right: Eye [employer] 03/18/2019 SN60WF.17 5 / [id number] / Lens 18.0 Sn60wf - [id number] - [id number] Implanted:Qty : 1 on 07/22/2022 by Abilio Hensley DO at OR [facility] Left: Eye MIRIAN : SURGICAL 11/16/2023 SN60WF.1 8 0 / [id number] / Patch Xenosure 0.1qul6bm - [id number] Implanted:Qty : 1 on 12/24/2022 by Jean Garcia MD at [place] [facility] Left: Femoral Artery [employer] [id number] 08/15/2028 E0.8P8 / [id number] / [id number] Patch Xenosure 0.4dwl5jb - [id number] - [id number] Implanted:Qty : 1 on 07/05/2023 by Jean Garcia MD at [facility] Left: Carotid [employer] [id number] 01/13/2029 E0.8P8 / [id number] / [id number] documented as of this encounter Advance Directives [...] the patient have Health Care Power of Director Title? No * Full Code Date Activated Date [...] and were consensually agreed upon. Care Teams Buffer Automatic Relationship Specialty Start Date End Date Rohan Mckenzie DO [address] [place] [address] PCP - General Family Medicine 05/27/16 documented as of this encounter
--- OUTSIDE RECORDS SUMMARY | 2024-08-04 01:36 | External Medical Summary | Summary of Care ---
Author Name Unknown Organization [facility] Address [address] [facility] [address] Phone [phone] Care Team Providers Care Lan/Wan Engineer Name Role Phone Rohan Mckenzie DO Primary Care Provider [phone] Reason for Visit * Reason Onset Date Comments case management 04/25/2024 Encounter Details Date Type Department Care Team (Late st Contact Info) Description 04/25/2024 Telephone Pulmonary Medicine, [facility] 132 [facility] [place] [phone] Dom Grossman MD [address] [facility] [place] [phone] case management Allergies Active Allergy Reactions Criticality [...] 08/02/2023 Active Additional Information Patient taking differently: [id number], Reported on 01/18/2024 Albuterol Sulfate HFA 108 (90 Base) MCG/ACT Inhalation Aerosol SolutionIndications :Pulmonary fibrosis (HCC),Lung nodule,PVD (peripheral vascular disease) ([facility]) TAKE 2 PUFFS BY [...] artery disease 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. documented as of this encounter (statuses as of 04/26/2024) Immunizations Name Administration Dates Next Due COVID-19 mRNA, LNP-s, No Pre serve, 2-Dose Series (2heuresavant) 05/27/2021,10/10/2020,09/12/2020 Covid-19, Mrna, Lnp-s, Pf, B ivalent, 30 Mcg, IM, 12 yrs and above (2heuresavant) 06/23/2022 Pneumococcal Conjugate Vacci ne, 20-valent (Nzlvqsg89) 07/03/2022 Pneumococcal Polysaccharide PPV23 (Pneumovax) 06/17/2021,04/01/2006 Seasonal [...] with getting his PleurX Catheter bottles from [place]. He [place] they said that he was not due for a shipment until the 05 of May. He will be leaving for [place] this weekend and will not have any Pleurex Bottles. Called several different companies and [facility] [place] is able to supply Pleurex bottles. They will ship 10 bottles. Their phone number is [phone]. Fax number is [phone] Dr Grossman please see above. DME order placed. Will fax to Antonio [facility]. documented in this encounter Plan of Treatment Upcoming Encounters Date Type Department Care Team (Late st Contact Info) Description 06/05/2024 12:40 PM EST Office Visit Pulmonary Medicine, [facility] [address] [place] [address] Dom Grossman MD [facility] [place] [address] 06/08/2024 12:55 PM EST Hospital Encounter [facility] O[facility], Operating Room OSHP [address] [place] [phone] Tal Medina, [address] [place] [phone] 06/08/2024 12:55 PM EST - 06/08/2024 1:20 PM EST Surgery [facility], Operating Room OSHP [address] [place] [phone] Tal Medina, [address] [place] [phone] L-/S-SPINE PARAVERTEBRAL FACET INJ, 1 LEVEL 06/13/2024 11:30 AM EST Office Visit Cardiology, [facility] 132 [facility] [place] [address] Víctor Mcclain MD 132 [facility] [place] [address] 06/13/2024 11:30 AM EST Cardiac Studies Cardiology, [facility] 132 [facility] [place] [address] [facility] 132 [facility] [place] [address] 07/17/2024 12:40 PM EST Office Visit Family Practice [facility] 200 [facility] [place] [address] Rohan Mckenzie, DO 200 [facility] [place] [address] 08/15/2024 1:00 PM EST Nurse Only Ancillary [facility] 200 [facility] [place] [address] [place], Nurse Annual Wellness [facility] 200 [facility] [place] [address] 12/01/2024 1:30 PM EDT Office Visit Cardiology, [facility] 132 [facility] [place] [address] Cindy Monte CRNP 400 [facility] [place] [address] 01/24/2025 1:15 PM EDT Office Visit Ophthalmology, [place] [address] [place] [address] [address] Abilio Hensley DO [address] [place] [address] Scheduled Procedures Name Priority Associated Diagnoses Date/Ti [...] this encounter Medical Devices Implanted Type Area Transportation Planning Engineer Device Identifier Shelf Expiration Date Model / Serial / Lot Lens 17.5 Sn60wf - [id number] Implanted:Qty : 1 on 06/27/2014 by Rihc Brooks MD at OR [facility] Right: Eye [employer] 03/18/2019 SN60WF.17 5 / [id number] / Lens 18.0 Sn60wf - [id number] - [id number] Implanted:Qty : 1 on 07/22/2022 by Abilio Hensley DO at OR [facility] Left: Eye MIRIAN : SURGICAL 11/16/2023 SN60WF.1 8 0 / [id number] / Patch Xenosure 0.2ziw8ak - [id number] Implanted:Qty : 1 on 12/24/2022 by Jean Garcia MD at OR [facility] Left: Femoral Artery [employer] [id number] 08/15/2028 E0.8P8 / [id number] / [id number] Patch Xenosure 0.5qoe0sy - [id number] - [id number] Implanted:Qty : 1 on 07/05/2023 by Jean Garcia MD at OR [facility] Left: Carotid [employer] [id number] 01/13/2029 E0.8P8 / [id number] / [id number] documented as of this encounter Visit Diagnoses [...] the patient have Health Care Power of Options Trader? No * Full Code Date Activated Date [...] and were consensually agreed upon. Care Teams Lan/Wan Engineer Relationship Specialty Start Date End Date Rohan Mckenzie DO [address] [place] [address] PCP - General Family Medicine 05/27/16 documented as of this encounter
--- OUTSIDE RECORDS SUMMARY | 2024-08-04 01:36 | External Medical Summary | Summary of Care ---
Author Name Unknown Organization [facility] Address [address] [facility] [place] [address] Phone [phone] Care Team Providers Care Bone Worker Name Role Phone Rohan Mckenzie DO Primary Care Provider [phone] Reason for Visit * Reason Onset Date Comments case management 04/25/2024 Encounter Details Date Type Department Care Team (Late st Contact Info) Description 04/25/2024 Telephone Pulmonary Medicine, [facility] 132 [facility] [place] [phone] Dom Grossman MD [address] [facility] [place] [phone] case management Allergies Active Allergy Reactions Criticality [...] 08/02/2023 Active Additional Information Patient taking differently: [id number], Reported on 01/18/2024 Albuterol Sulfate HFA 108 (90 Base) MCG/ACT Inhalation Aerosol SolutionIndications :Pulmonary fibrosis (HCC),Lung nodule,PVD (peripheral vascular disease) ([facility]) TAKE 2 PUFFS BY MOUTH [...] artery disease 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 documented as of this encounter (statuses as of 04/26/2024) Immunizations Name Administration Dates Next Due COVID-19 mRNA, LNP-s, No Pre serve, 2-Dose Series ([employer]) 05/27/2021,10/10/2020,09/12/2020 Covid-19, Mrna, Lnp-s, Pf, B ivalent, 30 Mcg, IM, 12 yrs and above ([employer]) 06/23/2022 Pneumococcal Conjugate Vacci ne, 20-valent ([id number]) 07/03/2022 Pneumococcal Polysaccharide PPV23 (Pneumovax) 06/17/2021,04/01/2006 Seasonal [...] with getting his PleurX Catheter bottles from [place]. He was [place] to receive a [place] yesterday [place] and they said that he was not due for a shipment until the 05 of May. He will be leaving for [place] this weekend and will not have any Pleurex Bottles. Called several different companies and [facility] [place] is able to supply Pleurex bottles. They will ship 10 bottles. Their phone number is [phone]. Fax number is [phone] Dr Grossman please see above. DME order placed. Will fax to Antonio [facility]. documented in this encounter Plan of Treatment Upcoming Encounters Date Type Department Care Team (Late st Contact Info) Description 06/05/2024 12:40 PM EST Office Visit Pulmonary Medicine, [facility] [address] [place] [address] Dom Grossman MD [facility] [place] [address] 06/08/2024 12:55 PM EST Hospital Encounter [facility], Operating Room O[facility] [address] [place] [phone] Tal Medina, [address] [place] [phone] 06/08/2024 12:55 PM EST - 06/08/2024 1:20 PM EST Surgery [facility], Operating Room O[facility] [address] [place] [phone] Tal Medina, [address] [place] [phone] L-/S-SPINE PARAVERTEBRAL FACET INJ, 1 LEVEL 06/13/2024 11:30 AM EST Office Visit Cardiology, [facility] 132 [facility] [place] [address] Víctor Mcclain MD 132 [facility] [place] [address] 06/13/2024 11:30 AM EST Cardiac Studies Cardiology, [facility] 132 [facility] [place] [address] [facility] 132 [facility] [place] [address] 07/17/2024 12:40 PM EST Office Visit Family Practice [facility] 200 [facility] [place] [address] Rohan Mckenzie, DO 200 [facility] [place] [address] 08/15/2024 1:00 PM EST Nurse Only Ancillary [facility] 200 [facility] [place] [address] [place], Nurse Annual Wellness [facility] 200 [facility] [place] [address] 12/01/2024 1:30 PM EDT Office Visit Cardiology, [facility] 132 [facility] [place] [address] Cindy Monte CRNP 400 [facility] [place] [address] 01/24/2025 1:15 PM EDT Office Visit Ophthalmology, [address] [place] [address] Abilio Hensley DO [address] [place] [address] Scheduled Procedures Name Priority Associated Diagnoses Date/Ti [...] this encounter Medical Devices Implanted Type Area Career Orientation Teacher Device Identifier Shelf Expiration Date Model / Serial / Lot Lens 17.5 Sn60wf - [id number] Implanted:Qty : 1 on 06/27/2014 by Rich Brooks MD at OR [facility] Right: Eye [employer] 03/18/2019 SN60WF.17 5 / [id number] / Lens 18.0 Sn60wf - [id number] - [id number] Implanted:Qty : 1 on 07/22/2022 by Abilio Hensley DO at OR [facility] Left: Eye MIRIAN : SURGICAL 11/16/2023 SN60WF.1 8 0 / [id number] / Patch Xenosure 0.2uju4qn - [id number] Implanted:Qty : 1 on 12/24/2022 by Jean Garcia MD at OR [facility] Left: Femoral Artery [employer] [id number] 08/15/2028 E0.8P8 / [id number] / [id number] Patch Xenosure 0.7kuw0jx - [id number] - [id number] Implanted:Qty : 1 on 07/05/2023 by Jean Garcia MD at OR [facility] Left: Carotid [employer] [id number] 01/13/2029 E0.8P8 / [id number] / [id number] documented as of this encounter Visit Diagnoses [...] the patient have Health Care Power of Primary Health Organisation Manager? No * Full Code Date Activated [...] were consensually agreed upon. Care Teams Bone Worker Relationship Specialty Start Date End Date Rohan Mckenzie DO [address] [place] [address] PCP - General Family Medicine 05/27/16 documented as of this encounter
--- OUTSIDE RECORDS SUMMARY | 2024-08-04 01:36 | External Medical Summary | Summary of Care ---
Author Name Unknown Organization [facility] Address [address] [place] [address] Phone [phone] Care Team Providers Care Glove Turner And Former Name Role Phone Rohan Mckenzie DO Primary Care Provider [phone] Encounter Details Date Type Department Care Team (Late st Contact Info) Description 04/24/2024 Result Scan Unspecified Department <No scans attached> Allergies Active Allergy Reactions [...] 08/02/2023 Active Additional Information Patient taking differently: [id number], Reported on 01/18/2024 Albuterol Sulfate HFA 108 (90 Base) MCG/ACT Inhalation Aerosol SolutionIndications :Pulmonary fibrosis (HCC),Lung nodule,PVD (peripheral vascular disease) ([facility]) TAKE 2 PUFFS BY MOUTH EVERY 6 [...] artery disease of 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 documented as of this encounter (statuses as of 05/03/2024) Immunizations Name Administration Dates Next Due COVID-19 mRNA, LNP-s, No Pre serve, 2-Dose Series ([employer]) 05/27/2021,10/10/2020,09/12/2020 Covid-19, Mrna, Lnp-s, Pf, B ivalent, 30 Mcg, IM, 12 yrs and above (Pfizer) 06/23/2022 Pneumococcal Conjugate Vacci ne, 20-valent ([id number]) 07/03/2022 Pneumococcal Polysaccharide PPV23 (Pneumovax) 06/17/2021,04/01/2006 Seasonal [...] 18 years and over) Not on file 01/24/202 4 Are you (or your family) dyana eless [...] 12:40 PM EST Office Visit Pulmonary Medicine, [address] [place] [address] Dom Grossman MD [address] [place] [address] 06/08/2024 12:55 PM EST Hospital Encounter [facility], Operating Room [facility] [address] [place] [phone] Tal Medina, DO [address] [place] [id number] 06/08/2024 12:55 PM EST - 06/08/2024 1:20 PM EST Surgery [facility], Operating Room [facility] [address] [place] [phone] Tal Medina, DO [address] [place] [id number] L-/S-SPINE PARAVERTEBRAL FACET INJ, 1 LEVEL 06/13/2024 11:30 AM EST Office Visit Cardiology, [facility] [address] [place] [address] Víctor Mcclain MD [address] [place] [address] 06/13/2024 11:30 AM EST Cardiac Studies Cardiology, [facility] [address] [place] [address] [facility] [address] [place] [address] 07/17/2024 12:40 PM EST Office Visit Family Practice [facility] [address] [place] [address] Rohan Mckenzie, DO [address] [place] [place] [address] 08/15/2024 1:00 PM EST Nurse Only Ancillary [facility] [address] [place] [place] [address] [place], Nurse [facility] [address] [place] [address] 12/01/2024 1:30 PM EDT Office Visit Cardiology, [facility] [place] [address] [place] [address] Cindy Monte CRNP [address] [facility] [place] [address] 01/24/2025 1:15 PM EDT Office Visit Ophthalmology, [place] [address] [place] [address] [address] Abilio Hensley DO [address] [address] [address] Scheduled Procedures Name Priority Associated Diagnoses Date/Ti [...] this encounter Medical Devices Implanted Type Area Dope Sprayer Device Identifier Shelf Expiration Date Model / Serial / Lot Lens 17.5 Sn60wf - [id number] Implanted:Qty : 1 on 06/27/2014 by Rich Brooks MD at OR [facility] Right: Eye [employer] 03/18/2019 SN60WF.17 5 / [id number] / Lens 18.0 Sn60wf - [id number] - [id number] Implanted:Qty : 1 on 07/22/2022 by Abilio Hensley DO at OR [facility] Left: Eye MIRIAN : SURGICAL 11/16/2023 SN60WF.1 8 0 / [id number] / Patch Xenosure [id number] - [id number] Implanted:Qty : 1 on 12/24/2022 by Jean Garcia MD at [place] [facility] Left: Femoral Artery [employer] [id number] 08/15/2028 E0.8P8 / [id number] / [id number] Patch Xenosure 0.6oes3ak - [id number] - [id number] Implanted:Qty : 1 on 07/05/2023 by Jean Garcia MD at [facility] Left: Carotid [employer] [id number] 01/13/2029 E0.8P8 / [id number] / [id number] documented as of this encounter Procedures Procedure Name Priority Date/Time Associated Diagnosis Comments RADIOLOGY SCANNED RESULT 04/24/2024 documented in this encounter Results * RADIOLOGY SCANNED RESULT (04/24/2024) 04/24/2024 No Physician Data Unknown DIAGNOSTIC RAD IOLOGY SERVICES documented in this encounter Advance Directives * [...] the patient have Health Care Power of Junior Recruiter? No * Full Code Date Activated Date [...] and were consensually agreed upon. Care Teams Glove Turner And Former Relationship Specialty Start Date End Date Rohan Mckenzie DO [address] [place] [address] PCP - General Family Medicine 05/27/16 documented as of this encounter
[2024-08-04 01:53] LABS: Adenovirus PCR Not Detected (NotDetected); Bordetella parapertussis PCR Not Detected (NotDetected); Bordetella pertussis PCR Not Detected (NotDetected); Chlamydia pneumoniae PCR Not Detected (NotDetected); Coronavirus 229E PCR Not Detected (NotDetected); Coronavirus CoV-2 (COVID19)PCR Not Detected (NotDetected); Coronavirus HKU1 PCR Not Detected (NotDetected); Coronavirus NL63 PCR Not Detected (NotDetected); Coronavirus OC43PCR Not Detected (NotDetected); Human Metapneumovirus PCR Not Detected (NotDetected); Influenza A PCR Not Detected (NotDetected); Influenza B PCR Not Detected (NotDetected); Mycoplasma pneumoniae PCR Not Detected (NotDetected); Parainfluenza Virus 1 PCR Not Detected (NotDetected); Parainfluenza Virus 2 PCR Not Detected (NotDetected); Parainfluenza Virus 3 PCR Not Detected (NotDetected); Parainfluenza Virus 4 PCR Not Detected (NotDetected); Respiratory Syncytial VirusPCR Not Detected (NotDetected); Rhinovirus/Enterovirus PCR Not Detected (NotDetected)
--- NOTE | 2024-08-04 02:22 | CT Scan Report ---
EXAM: CT head/brain wo con CLINICAL HISTORY: reports pt is post cardiac arrest after his found him unresponsive with agonal resp while laying in bed. pt had CPR for 5 mins, no shocks advised. on ALS arrival to pt he was alert and oriented, maintaining his airway indepenedently. family reported pt fell 2 days ago, hitting his head and has been altered since, has hematoma to left eye and cheek. TECHNIQUE: Multiple axial images are obtained from the skull base to the vertex without contrast. CT scan was performed according to ALARA (as low as reasonable achievable). 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 FINDINGS: There is cerebral atrophy. No evidence of space occupying lesion, hemorrhage, edema, mass effect, midline shift, extra axial collection, or hydrocephalus is noted. Basal cisterns are symmetric and normal in size and configuration. There are scattered periventricular hypodensities as can be seen with chronic microvascular ischemic changes. The painter-white matter differentiation is preserved. Left maxillary sinusitis. Rest of paranasal sinuses and mastoid air cells are well aerated. Orbital contents are within normal limits. Bony structures are intact. IMPRESSION: 1. No evidence of acute intracranial abnormality is demonstrated. 2. Chronic microvascular ischemic changes. 3. Cerebral atrophy. No other new interval abnormality since prior study. Electronically signed by Will Valentin 08-04-2024 02:22 AM
[2024-08-04 02:25] LABS: INR 1.6 (0.9-1.1); Partial Thromboplastin Time 28 Seconds (21-31); Prothrombin Time 16.8 Seconds (9.0-12.0)
--- NOTE | 2024-08-04 02:35 | CT Scan Report ---
EXAM: CT chest diagnostic wo con CLINICAL HISTORY: reports pt is post cardiac arrest after his found him unresponsive with agonal resp while laying in bed. pt had CPR for 5 mins, no shocks advised. on ALS arrival to pt he was alert and oriented, maintaining his airway indepenedently. family reported pt fell 2 days ago, hitting his head and has been altered since, has hematoma to left eye and cheek. TECHNIQUE: Contiguous axial images were obtained from the neck base through the upper abdomen without contrast. In addition, sagittal and coronal reconstructions were performed to potentially increase the sensitivity for the detection of disease. CT scan was performed according to ALARA (as low as reasonable achievable). COMPARISON: 06/16/2023 16:45:30 AGRICULTURAL ENGINEER. FINDINGS: Mild bilateral pleural effusion with basal subsegmental collapse of both lower lobes are seen Linear displaced fracture is noted involving anterior part of right fourth, fifth, sixth and seventh rib. Old healed fracture of left seventh and eighth rib. Patchy ill-defined ground-glass opacity with smooth interlobular septal thickening are noted involving right upper lobe Multiple linear atelectatic bands are noted in the right middle and lower lobe. No pneumothorax is seen. The central airways are patent. Evaluation of the mediastinum and nadiya is limited due to the lack of intravenous contrast. No axillary or mediastinal adenopathy is identified. The thyroid is unremarkable. The heart, aorta, and pulmonary arteries are of normal size and configuration. There are coronary artery and aortic atherosclerotic calcifications. No pericardial effusion is identified. Imaged portions of the upper abdomen are unremarkable. No aggressive appearing osseous lesions are identified. IMPRESSION: Mild bilateral pleural effusion with basal subsegmental collapse of both lower lobes are seen - increased on left side. Right pleural effusion has become loculated in current study. Linear displaced fracture is noted involving anterior part of right fourth, fifth, sixth and seventh ribs -new finding. Old healed fracture of left seventh and eighth rib. Patchy ill-defined ground-glass opacity with smooth interlobular septal thickening are noted involving right upper lobe- possibility of mild edema-new finding. Multiple linear atelectatic bands are noted in the right middle and lower lobe.- -stable. Electronically signed by Will Valentin 08-04-2024 02:34 AM
[2024-08-04] MEDS: LEVALBUTEROL 1.25 MG/3 ML NEB NEB STA (02:38)
[2024-08-04] MEDS: ACETAMINOPHEN 1,000 MG/100 ML VIAL IV STA (02:38)
--- NOTE | 2024-08-04 02:38 | CT Scan Report ---
EXAM: CT cervical spine wo con CLINICAL HISTORY: reports pt is post cardiac arrest after his found him unresponsive with agonal resp while laying in bed. pt had CPR for 5 mins, no shocks advised. on ALS arrival to pt he was alert and oriented, maintaining his airway indepenedently. family reported pt fell 2 days ago, hitting his head and has been altered since, has hematoma to left eye and cheek. TECHNIQUE: Computed tomography of the cervical spine performed without intravenous contrast. Contiguous axial images were obtained from the skull base to T2, with sagittal and coronal reformatted images reconstructed from the axial data. CT scan was performed according to ALARA (as low as reasonable achievable). COMPARISON: None. FINDINGS: Loss of cervical lordosis - suggest possibility of muscle spasm/positional. Degenerative changes involving cervical spine in the form of multilevel marginal osteophytes, disc space reduction and facetal arthrosis. Cervical vertebral bodies are normal in height and alignment, with no evidence of fracture or subluxation. Lateral masses of C1 are symmetrical, and the dens is intact. Prevertebral soft tissues are not widened. The remaining suprahyoid and infrahyoid soft tissues in the neck are unremarkable. Posterior uncovertebral arthrosis is noted at C5-C6 and C6-C7 levels, which indenting ventral thecal sac and causes bilateral neuroforaminal narrowing. Thyroid gland appears unremarkable. IMPRESSION: 1.No acute fracture or subluxation in the cervical spine. 2.Cervical spondylosis. Electronically signed by Will Valentin 08-04-2024 02:38 AM
--- NOTE | 2024-08-04 02:49 | CT Scan Report ---
EXAM: CT facial bones wo con CLINICAL HISTORY: reports pt is post cardiac arrest after his found him unresponsive with agonal resp while laying in bed. pt had CPR for 5 mins, no shocks advised. on ALS arrival to pt he was alert and oriented, maintaining his airway indepenedently. family reported pt fell 2 days ago, hitting his head and has been altered since, has hematoma to left eye and cheek. TECHNIQUE: Computed tomography of the orbits/face was performed without intravenous contrast. Contiguous axial images were obtained. Reformatted coronal and sagittal images were also reviewed. CT scan was performed according to ALARA (as low as reasonable achievable). COMPARISON: none. FINDINGS: Right frontal and bilateral maxillary sinusitis. S shaped nasal septum deviation with bony spur formation. No acute facial fractures. Rest of paranasal sinuses and mastoid air cells are clear. The globes, optic nerves, extraocular muscles and retro-orbital fat are grossly unremarkable. Reformatted imaging demonstrates intact roof and floor of the orbits. Included portions of the mandible are intact. The included intracranial substances and airway are unremarkable. IMPRESSION: Right frontal and bilateral maxillary sinusitis. S shaped nasal septum deviation with bony spur formation. No obvious facial bone fracture. Electronically signed by Will Valentin 08-04-2024 02:49 AM
--- NOTE | 2024-08-04 02:58 | CT Scan Report ---
EXAM: CT abd pelvis wo con CLINICAL HISTORY: reports pt is post cardiac arrest after his found him unresponsive with agonal resp while laying in bed. pt had CPR for 5 mins, no shocks advised. on ALS arrival to pt he was alert and oriented, maintaining his airway indepenedently. family reported pt fell 2 days ago, hitting his head and has been altered since, has hematoma to left eye and cheek. TECHNIQUE: Contiguous axial images were obtained from the level of the diaphragm to the pubic symphysis without intravenous or oral contrast. Coronal and sagittal reconstructions were likewise performed and indicated to increase the sensitivity for detecting clinically relevant pathology. CT scan was performed according to ALARA (as low as reasonable achievable). COMPARISON: 01/02/2021 16:33:00 MULTIGRAPHER FINDINGS: Mild bilateral pleural effusion with basal subsegmental collapse of both lower lobes are seen Linear displaced fracture of anterior end of right fourth to seventh rib. Evaluation of the abdominal and pelvic visceral organs is limited without intravenous contrast. The unenhanced liver, spleen, pancreas, and adrenal glands are grossly unremarkable. The gallbladder is present. The kidneys are normal in size and attenuation without obvious calcification. There is no hydronephrosis . Mild bilateral perinephric stranding. The ureters are normal in caliber. Extensive fat stranding seen around left proximal and mid ureter. Minimal fluid seen in retroperitoneum anterior to bilateral psoas. No adenopathy or fluid collections are seen. No evidence of focal or diffuse bowel wall thickening or evidence of bowel obstruction is seen. No evidence of inflamed appendix. Diffuse atherosclerotic calcification is noted involving aorta iliac arteries. Mild focal aneurysmal dilatation of abdominal aorta just above the bifurcation with maximum diameter measures 33 mm. The urinary bladder is normal in contour. Pelvic viscera are grossly unremarkable. No aggressive appearing osseous lesions are identified. Bilateral fat containing inguinal hernia. Mild fat strandings are noted involving bilateral paracolic gutter. Ill-defined subarticular sclerosis with geographic appearance are noted involving bilateral femoral head suggesting avascular necrosis. IMPRESSION: Diffuse atherosclerotic calcification is noted involving aorta iliac arteries. Mild focal aneurysmal dilatation of abdominal aorta just above the bifurcation with maximum diameter measures 33 mm.-stable. Mild bilateral pleural effusion with basal subsegmental collapse of both lower lobes are seen -new finding. Linear displaced fracture of anterior end of right fourth to seventh rib. -new finding. Extensive fat stranding seen around left proximal and mid ureter- new finding. Possibility of infective/inflammatory etiology or traumatic pathology can not be ruled out. Advised CT urography correlation. Minimal fluid seen in retroperitoneum anterior to bilateral psoas- new finding. Bilateral fat containing inguinal hernia.-stable. Ill-defined subarticular sclerosis with geographic appearance are noted involving bilateral femoral head suggesting avascular necrosis.-stable. Electronically signed by Will Valentin 08-04-2024 02:58 AM
--- NOTE | 2024-08-04 03:12 | XRay Report ---
EXAM: XR chest 1V portable CLINICAL HISTORY: TRAUMA/POST CPR SDM TECHNIQUE: Radiograph of chest was acquired. COMPARISON: 01 march 2024. FINDINGS: Pacemaker noted in situ. Cardiomegaly is detected. No significant interval change. Blunting of the right costophrenic angle is noted, suggestive of pleural effusion. Left costophrenic angle appear clear. Stable age indeterminate fracture of the left eighth rib is noted. Haziness is noted in the right lung burnett, either due to pleural effusion or radiographic obliquity. Rest of the lung burnett appear clear. Rest of the findings are unchanged. IMPRESSION: 1. Cardiomegaly is detected. No significant interval change. 2. Blunting of the right costophrenic angle is noted, suggestive of pleural effusion. No significant interval change. 3. Haziness is noted in the right lung burnett, either due to pleural effusion or radiographic obliquity. 4. Stable age indeterminate fracture of the left eighth rib is noted. No significant interval new findings noted as compared to the previous radiograph. Electronically signed by Will Valentin 08-04-2024 03:12 AM
[2024-08-04] MEDS: fentaNYL citrate PF 100 MCG/2 ML VIAL IV STA (04:17)
[2024-08-04] MEDS: LIDOCAINE 5% 1 PATCH TD STA (04:17)
--- NOTE | 2024-08-04 05:06 | History & Physical Report ---
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 Patient tonight when he was going to sleep suddenly stopped breathing. His son started CPR and EMS were called. Seems when EMS arrived patient was in agonal breathing and seems pulses were present. CPR was continued for 5 minutes and no medication administered. AED pads were applied but no shock advised. As per ER paramedics blood pressure was 155 /100, heart rate 74 respiratory rate 24 on 15 lt. Blood sugar 101. In the ER patient was alert and awake and oriented. Patient has a bruise on his left side of the face. Patient lives with his and son. Daughter is in the room. Patient says that he fell couple of days ago. States he slipped and fell down. No loss of consciousness. Since the fall he was using walker. He has chest pain from his rib fractures. Currently states breathing is fine. He is on oxygen mask. States recently was started on doxycycline for cough and congestion. Denies any fevers. No headache. No dizziness. Vision is okay. No runny nose. Has some dry throat. Appetite has been down since last 1 week. No nausea. No abdominal pain. Somewhat constipated. Micturating okay. Hemodynamics okay currently. Respiratory arrest Cardiac/respiratory arrest Tonight when patient was going to sleep suddenly stopped breathing and required CPR. No meds or shocks were given Currently alert and awake and oriented EKG shows a fib intial troponin 67 and repeat 420 has chest pain attributes to rib fractures requiring oxygen cxr has right sided haziness patchy ill defined ground glass opacity right upper lobe , and basal subsegmental collapse of both lower lobes. b/l mild pleural effusions on ct scan recently was started on po doxycyline-will be continued er gave zosyn- will be continued pacemaker interrogation serial ce and echo cardio and pulmonary/critical care consult follow repeat ekg and trops will follow lower ext dopplers ordered by critical care close monitor in ICU Elevated lft total bilirubin 2.0 ast 727, alt 427, alk phosp 331 ct scan liver seems ok will follow repeat labs possibly from above GI consult in am SP Hyponatremia hyperkalemia cr 2.0 na 128 K 5.4 holding lasix, entresto and eplernone gentle fluids ns@50ml/hr follow repeat labs nephrology consult Hypocalcemia ionized mauro 1.1 will give amp of iv calcium gluconate Frontal and maxillary sinusitis on zosyn Left proximal and mid ureter lesion infective/inflammatory or traumatic pathology per ct scan urology consult b/l femoral head avascular necrosis stable per ct scan needs followup fall pt/ot when stable hx of cva in 06/2023 s/p tnk on aspirin and plavix and zetia and statin Hx of right pleural effusion s/p Pleurx cath in december 2023 and removd in jun 2024 workup for malignancy was unremarkable per records. Hx of CAD s/p LALIT to RCA in 2019 on aspirin, plavix, b jamari and zetia and statin Chronic combined sytolic and diastolic chf ef 35-39% on echo done on 11/30/23 holding diuretcis monitor for volume overload hx of VT with syncope s/p cardiac defibrillator on metoprolol and amiodarone PVD on aspirina and plavix and statin chronic back pain following with orthospine gout on allopurinol Alcoholism says currently drinking two beers daily denies any withdrawals in the past will monitor Dvt px scds Disposition ICU Full code History of Present Illness Chief Complaint: Cardiac/respiratory arrest Primary Care Provider: Rohan Mckenzie DO 69-year-old male with past medical history significant dyslipidemia, right pleural effusion, history of pulmonary fibrosis, peripheral artery disease, CAD status post stent, hypertension, abdominal aortic aneurysm, bilateral carotid stenosis, chronic combined systolic and diastolic CHF, history of VT, status post ICD, history of gout, chronic venous stasis dermatitis, history of CVA, neuropathy, 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 Patient tonight when he was going to sleep suddenly stopped breathing. His son started CPR and EMS were called. Seems when EMS arrived patient was in agonal breathing and seems pulses were present. CPR was continued for 5 minutes and no medication administered. AED pads were applied but no shock advised. As per ER paramedics blood pressure was 155 /100, heart rate 74 respiratory rate 24 on 15 lt. Blood sugar 101. In the ER patient was alert and awake and oriented. Patient has a bruise on his left side of the face. Patient lives with his and son. Daughter is in the room. Patient says that he fell couple of days ago. States he slipped and fell down. No loss of consciousness. Since the fall he was using walker. He has chest pain from his rib fractures. Currently states breathing is fine. He is on oxygen mask. States recently was started on doxycycline for cough and congestion. Denies any fevers. No headache. No dizziness. Vision is okay. No runny nose. Has some dry throat. Appetite has been down since last 1 week. No nausea. No abdominal pain. Somewhat constipated. Micturating okay. Hemodynamics okay currently. Past medical history. As mentioned above. Past surgical history. Cardiac cath. Colonoscopy. Colonoscopy with biopsy. Left common femoral endarterectomy. Excision of lesion on the floor of the mouth on the right side. Iliac artery revascularization with stent placed angioplasty. Right ankle fracture repair. Injection of lumbosacral spine. Left pelvic/hip joint surgery. Right pelvic hip joint surgery. Appendectomy. Removal of right-sided neck lymph nodes. Removal of right submaxillary gland. Bilateral cataracts. Left carotid endarterectomy. Social history. . Quit smoking 2015. Smoked 1 pack a day for 40 years. Alcohol 2 beers per day currently. No drug use. Family history. Father had heart disorder. Prostate cancer. Mother had anemia. Brother had CABG. Allergies Allergy/AdvReac Type Severity Reaction Status Date / Time spironolactone AdvReac Unknown Verified 03/01/24 09:12 Home Medications Medication Instructions Recorded Confirmed Type aspirin 81 mg tablet,delayed 81 mg PO QAM #30 tabs 02/17/20 08/04/24 Rx release ezetimibe 10 mg tablet (Zetia) 10 mg PO QAM #30 tabs 02/17/20 08/04/24 Rx nitroglycerin 0.4 mg sublingual 0.4 mg sublingual PRN PRN chest 02/17/20 08/04/24 Rx tablet (Nitrostat) pain #30 tabs allopurinol 300 mg tablet 300 mg PO HS 01/02/21 08/04/24 History vitamin B complex 1 tab PO DAILY 01/02/21 08/04/24 History albuterol sulfate 90 mcg/actuation 2 puff inhalation DIRECTED PRN 06/15/23 08/04/24 History aerosol inhaler Shortness Of Breath Or Wheezing furosemide 40 mg tablet (Lasix) 40 mg PO DAILY 06/15/23 08/04/24 History vitamins A,C,M-rxgv-okbaqq 4,296 1 cap PO QAM 06/15/23 08/04/24 History mcg-226 mg-90 mg capsule (PreserVision AREDS) clopidogrel 75 mg tablet 75 mg PO QAM #30 tabs 06/19/23 08/04/24 Rx metoprolol succinate 25 mg 25 mg PO DAILY@1800 #30 tabs 06/19/23 08/04/24 Rx tablet,extended release 24 hr metoprolol succinate 50 mg 50 mg PO QAM #30 tabs 06/19/23 08/04/24 Rx tablet,extended release 24 hr amiodarone 200 mg tablet 200 mg PO BID 03/01/24 08/04/24 History eplerenone 25 mg tablet 25 mg PO QAM 03/01/24 08/04/24 History rosuvastatin 10 mg tablet 10 mg PO DAILY 03/01/24 08/04/24 History sacubitril 97 mg-valsartan 103 mg 1 tab PO BID 03/01/24 08/04/24 History tablet (Entresto) doxycycline hyclate 100 mg capsule 100 mg PO AMHS 08/04/24 08/04/24 History fluticasone fur. 100 mcg-umeclid 1 ea inhalation QAM 08/04/24 08/04/24 History 62.5 mcg-vilant 25 mcg inhalat.powder (Trelegy Ellipta) gabapentin 300 mg capsule 300 mg PO AMHS 08/04/24 08/04/24 History Past Med/Surg History Problem List Abnormal ECG Hyperbilirubinemia (Acute) Transaminitis (Acute) Acute hypoxemic respiratory failure (Acute) Acute hyponatremia (Acute) Acute kidney injury (Acute) Multiple fractures of ribs, left side, initial encounter for closed fracture (Acute) Respiratory arrest before cardiac arrest (Acute) Respiratory arrest Frequent PVCs Acute on chronic heart failure with reduced ejection fraction and diastolic dy sfunction Stenosis of left internal carotid artery Pleural effusion Stenosis of left internal carotid artery with cerebral infarction Acute ischemic left MCA stroke Dyslipidemia Hypertension Cerebrovascular accident (Acute) Acute stroke due to embolism of left middle cerebral artery Pneumonia due to COVID-19 virus DVT prophylaxis Avascular necrosis of bone CAD (coronary artery disease) (Acute) HTN (hypertension) Dyslipidemia COVID-19 (Acute) Weakness (Acute) Diarrhea (Acute) Medical History Mouth cancer Neuropathic foot ulcer Nonsustained ventricular tachycardia History of tobacco abuse NSTEMI (non-ST elevated myocardial infarction) Total of 4. 1997 Circumflex, 02/16/2020 Proximal LAD, 03/07/2020 Proximal and Mid RCA NSVT (nonsustained ventricular tachycardia) Ischemic cardiomyopathy Surgical History History of colonoscopy with polypectomy multiple - prior villous adenoma in 2007 History of oral surgery excision of right mouth floor lesion, right submandibular gland, suprahyoid lymphadenectomy - 2016 History of cataract extraction History of appendectomy Stented coronary artery H/O heart artery stent Family History Father Heart disease Prostate cancer Brother Heart disease Social History Smoking Status: Unknown if ever smoked Second Hand Exposure: No; Do You Dip or Chew Tobacco: No; Hx Alcohol Use: Yes Alcohol type: beer Hx Substance Use: No Preferred Language: Turkmen Communication Ability: Effective Radar Systems Engineer Required: No Beliefs That Will Affect Care: None marital status: Current Living Situation: Family Current Living Situation Comment: and son Feels Safe at Home: Yes Safety Concerns: Feels Safe At This Time Assistive Devices: None Review of Systems Review of Systems: All systems reviewed & are unremarkable except as noted in HPI & below Physical Exam Physical Exam: General- Not in acute distress Head- bruise seen on left side of face Eyes- PERRL,left eye red conjunctiva ENT- oropharynx clear Neck- supple, no JVD. Lungs- clear to auscultation b/l rhonchi and bibasilar crackles Heart- regular rate and rhythm; no murmur, no gallop. Abdomen- normal bowel sounds, soft, nontender, no distension. Extremities- trace pretibial edema present, no erythema seen. Neuro- alert, oriented PERRL, no facial palsy; no dysarthria; movibg extremities Results & Data Results & Data Vital Signs (Past 12 Hours) Vital Signs Pulse Resp BP Pulse Ox O2 Del Method O2 Flow Rate FiO2 08/04/24 04:12 60 08/04/24 04:00 60 16 147/93 H 96 Oxymask 10 08/04/24 03:30 60 17 154/94 H 94 CPAP 08/04/24 03:12 60 21 96 30 08/04/24 03:00 60 21 134/91 95 CPAP 08/04/24 02:00 60 16 126/71 93 Nasal Cannula 2 08/04/24 01:36 60 20 127/72 91 08/04/24 01:22 60 20 118/72 95 Nasal Cannula 2 08/04/24 00:51 62 22 118/66 94 Nasal Cannula 2 08/04/24 00:46 Nasal Cannula 2 08/04/24 00:44 Room Air 08/04/24 00:38 60 24 135/79 100 Room Air 08/04/24 00:36 81 17 135/79 92 Nasal Cannula 2 08/04/24 00:35 83 Diagnostic Findings Laboratory Results WBC 14.75 K/ul (4.8-10.8) H 08/04/24 00:39 RBC 4.83 M/uL (4.70-6.10) 08/04/24 00:39 Hgb 15.1 g/dl (14.0-18.0) 08/04/24 00:39 POC Hgb 13.9 g/dl (14.0-18.0) L 08/04/24 00:57 Hct 46.8 % (42.0-52.0) 08/04/24 00:39 POC Hct 41 % (42-52) L 08/04/24 00:57 MCV 96.9 fL (80.0-100.0) 08/04/24 00:39 MCH 31.3 pg (25.0-34.0) 08/04/24 00:39 MCHC 32.3 g/dL (32.0-36.0) 08/04/24 00:39 RDW Std Deviation 54.6 fL (36.4-46.3) H 08/04/24 00:39 RDW Coeff of Sim 15.6 % (11.5-14.5) H 08/04/24 00:39 Plt Count 147 K/uL (130-400) 08/04/24 00:39 MPV 9.5 fL (9.4-12.4) 08/04/24 00:39 Immature Gran % (Auto) 3.4 % 08/04/24 00:39 Neut % (Auto) 71.1 % 08/04/24 00:39 Lymph % (Auto) 14.1 % 08/04/24 00:39 Mclean % (Auto) 10.9 % 08/04/24 00:39 Eos % (Auto) 0.1 % 08/04/24 00:39 Baso % (Auto) 0.4 % 08/04/24 00:39 Neut # (Auto) 10.49 K/uL (1.40-6.50) H 08/04/24 00:39 Lymph # (Auto) 2.08 K/uL (1.20-3.40) 08/04/24 00:39 Mclean # (Auto) 1.61 K/uL (0.11-0.59) H 08/04/24 00:39 Eos # (Auto) 0.01 K/uL (0.00-0.50) 08/04/24 00:39 Baso # (Auto) 0.06 K/uL (0.00-0.20) 08/04/24 00:39 Immature Gran # (Auto) 0.50 K/uL (0.01-0.20) H 08/04/24 00:39 Absolute Nucleated RBC 0.05 K/uL (0.00-0.12) 08/04/24 00:39 Nucleated RBC % (auto) 0.3 % 08/04/24 00:39 PT 16.8 Seconds (9.0-12.0) H 08/04/24 01:03 INR 1.6 (0.9-1.1) H 08/04/24 01:03 APTT 28 Seconds (21-31) 08/04/24 01:03 PTT Ratio 1.0 08/04/24 01:03 VBG pH 7.31 (7.36-7.41) L 08/04/24 00:55 VBG pCO2 50 mmHg (38-50) 08/04/24 00:55 VBG pO2 27 mmHg 08/04/24 00:55 VBG HCO3 25 mmol/L 08/04/24 00:55 VBG O2 Saturation < 60.0 % 08/04/24 00:55 VBG Base Excess -1.7 mEq/L 08/04/24 00:55 POC Sodium 128 mmol/L (135-144) L 08/04/24 00:57 Sodium 128 mmol/L (136-145) L 08/04/24 00:39 POC Potassium 5.4 mmol/L (3.3-5.0) H 08/04/24 00:57 Potassium 5.4 mmol/L (3.5-5.1) H 08/04/24 00:39 POC Chloride 93 mmol/L (101-112) L 08/04/24 00:57 Chloride 89 mmol/L (98-107) L 08/04/24 00:39 Carbon Dioxide 24 mmol/L (21-32) 08/04/24 00:39 POC Total CO2 25 mmol/L (24-31) 08/04/24 00:57 Anion Gap 15 (3-11) H 08/04/24 00:39 POC Anion Gap 17.0 mmol/L (16-25) 08/04/24 00:57 POC BUN 28 mg/dl (7-18) H 08/04/24 00:57 BUN 30 mg/dl (6-23) H 08/04/24 00:39 Creatinine 2.24 mg/dl (0.6-1.4) H 08/04/24 00:39 POC Creatinine 2.3 mg/dl (0.6-1.3) H 08/04/24 00:57 Est Cr Clr Drug Dosing 39.7 ml/min 08/04/24 00:39 eGFR 30.95 08/04/24 00:39 BUN/Creatinine Ratio 13.4 (10-20) 08/04/24 00:39 Glucose 96 mg/dl (70-99(Fasting)) 08/04/24 00:39 POC Glucose (other) 96 mg/dl (70-99) 08/04/24 00:57 Calcium 9.9 mg/dl (8.6-10.3) 08/04/24 00:39 POC Ioniz Calcium Moises 1.10 mmol/l (1.12-1.32) L 08/04/24 00:57 Total Bilirubin 2.0 mg/dl (0.2-1.0) H 08/04/24 00:39 AST 727 U/L (13-39) H 08/04/24 00:39 ALT 427 U/L (7-52) H 08/04/24 00:39 Alkaline Phosphatase 331 U/L (34-104) H 08/04/24 00:39 Troponin I High Sens 420.7 pg/ml (0-20) H* D 08/04/24 03:02 Total Protein 7.3 gm/dl (6.0-8.3) 08/04/24 00:39 Albumin 4.1 gm/dl (3.4-5.0) 08/04/24 00:39 Globulin 3.2 gm/dl (2.5-4.0) 08/04/24 00:39 Albumin/Globulin Ratio 1.3 (0.9-2) 08/04/24 00:39 Lipase 44 U/L (11-82) 08/04/24 00:39 Nasal Screen MRSA (PCR) Negative (Negative) 08/04/24 00:50 Adenovirus (PCR) Not Detected (NotDetected) 08/04/24 00:50 B. pertussis DNA (PCR) Not Detected (NotDetected) 08/04/24 00:50 B.parapertussis DNA PCR Not Detected (NotDetected) 08/04/24 00:50 C. pneumoniae DNA (PCR) Not Detected (NotDetected) 08/04/24 00:50 Coronavirus OC43 (PCR) Not Detected (NotDetected) 08/04/24 00:50 Coronavirus HKU1 (PCR) Not Detected (NotDetected) 08/04/24 00:50 Coronavirus 229E (PCR) Not Detected (NotDetected) 08/04/24 00:50 SARS-CoV-2 (PCR) Not Detected (NotDetected) 08/04/24 00:50 Coronavirus NL63 (PCR) Not Detected (NotDetected) 08/04/24 00:50 Human Metapneumovir PCR Not Detected (NotDetected) 08/04/24 00:50 Influenza Type A (PCR) Not Detected (NotDetected) 08/04/24 00:50 Influenza Type B (PCR) Not Detected (NotDetected) 08/04/24 00:50 M. pneumoniae (PCR) Not Detected (NotDetected) 08/04/24 00:50 Parainfluenza 1 (PCR) Not Detected (NotDetected) 08/04/24 00:50 Parainfluenza 2 (PCR) Not Detected (NotDetected) 08/04/24 00:50 Parainfluenza 3 (PCR) Not Detected (NotDetected) 08/04/24 00:50 Parainfluenza 4 (PCR) Not Detected (NotDetected) 08/04/24 00:50 RSV (PCR) Not Detected (NotDetected) 08/04/24 00:50 Entero/Rhino (PCR) Not Detected (NotDetected) 08/04/24 00:[address] 08/04/24 00:40 EXAM: CT cervical spine wo con CLINICAL HISTORY: reports pt is post cardiac arrest after his found him unresponsive with agonal resp while laying in bed. pt had CPR for 5 mins, no shocks advised. on ALS arrival to pt he was alert and oriented, maintaining his airway indepenedently. family reported pt fell 2 days ago, hitting his head and has been altered since, has hematoma to left eye and cheek. TECHNIQUE: Computed tomography of the cervical spine performed without intravenous contrast. Contiguous axial images were obtained from the skull base to T2, with sagittal and coronal reformatted images reconstructed from the axial data. CT scan was performed according to ALARA (as low as reasonable achievable). COMPARISON: None. FINDINGS: Loss of cervical lordosis - suggest possibility of muscle spasm/positional. Degenerative changes involving cervical spine in the form of multilevel marginal osteophytes, disc space reduction and facetal arthrosis. Cervical vertebral bodies are normal in height and alignment, with no evidence of fracture or subluxation. Lateral masses of C1 are symmetrical, and the dens is intact. Prevertebral soft tissues are not widened. The remaining suprahyoid and infrahyoid soft tissues in the neck are unremarkable. Posterior uncovertebral arthrosis is noted at C5-C6 and C6-C7 levels, which indenting ventral thecal sac and causes bilateral neuroforaminal narrowing. Thyroid gland appears unremarkable. IMPRESSION: 1.No acute fracture or subluxation in the cervical spine. 2.Cervical spondylosis. Electronically signed by Will Valentin 08-04-2024 02:38 AM Chest X-Ray 08/04/24 00:40 EXAM: XR chest 1V portable CLINICAL HISTORY: TRAUMA/POST CPR SDM TECHNIQUE: Radiograph of chest was acquired. COMPARISON: 01 march 2024. FINDINGS: Pacemaker noted in situ. Cardiomegaly is detected. No significant interval change. Blunting of the right costophrenic angle is noted, suggestive of pleural effusion. Left costophrenic angle appear clear. Stable age indeterminate fracture of the left eighth rib is noted. Haziness is noted in the right lung burnett, either due to pleural effusion or radiographic obliquity. Rest of the lung burnett appear clear. Rest of the findings are unchanged. IMPRESSION: 1. Cardiomegaly is detected. No significant interval change. 2. Blunting of the right costophrenic angle is noted, suggestive of pleural effusion. No significant interval change. 3. Haziness is noted in the right lung burnett, either due to pleural effusion or radiographic obliquity. 4. Stable age indeterminate fracture of the left eighth rib is noted. No significant interval new findings noted as compared to the previous radiograph. Electronically signed by Will Valentin 08-04-2024 03:[address] 08/04/24 00:40 EXAM: CT facial bones wo con CLINICAL HISTORY: reports pt is post cardiac arrest after his found him unresponsive with agonal resp while laying in bed. pt had CPR for 5 mins, no shocks advised. on ALS arrival to pt he was alert and oriented, maintaining his airway indepenedently. family reported pt fell 2 days ago, hitting his head and has been altered since, has hematoma to left eye and cheek. TECHNIQUE: Computed tomography of the orbits/face was performed without intravenous contrast. Contiguous axial images were obtained. Reformatted coronal and sagittal images were also reviewed. CT scan was performed according to ALARA (as low as reasonable achievable). COMPARISON: none. FINDINGS: Right frontal and bilateral maxillary sinusitis. S shaped nasal septum deviation with bony spur formation. No acute facial fractures. Rest of paranasal sinuses and mastoid air cells are clear. The globes, optic nerves, extraocular muscles and retro-orbital fat are grossly unremarkable. Reformatted imaging demonstrates intact roof and floor of the orbits. Included portions of the mandible are intact. The included intracranial substances and airway are unremarkable. IMPRESSION: Right frontal and bilateral maxillary sinusitis. S shaped nasal septum deviation with bony spur formation. No obvious facial bone fracture. Electronically signed by Will Valentin 08-04-2024 02:[address] 08/04/24 00:40 EXAM: CT head/brain wo con CLINICAL HISTORY: reports pt is post cardiac arrest after his found him unresponsive with agonal resp while laying in bed. pt had CPR for 5 mins, no shocks advised. on ALS arrival to pt he was alert and oriented, maintaining his airway indepenedently. family reported pt fell 2 days ago, hitting his head and has been altered since, has hematoma to left eye and cheek. TECHNIQUE: Multiple axial images are obtained from the skull base to the vertex without contrast. CT scan was performed according to ALARA (as low as reasonable achievable). 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 FINDINGS: There is cerebral atrophy. No evidence of space occupying lesion, hemorrhage, edema, mass effect, midline shift, extra axial collection, or hydrocephalus is noted. Basal cisterns are symmetric and normal in size and configuration. There are scattered periventricular hypodensities as can be seen with chronic microvascular ischemic changes. The painter-white matter differentiation is preserved. Left maxillary sinusitis. Rest of paranasal sinuses and mastoid air cells are well aerated. Orbital contents are within normal limits. Bony structures are intact. IMPRESSION: 1. No evidence of acute intracranial abnormality is demonstrated. 2. Chronic microvascular ischemic changes. 3. Cerebral atrophy. No other new interval abnormality since prior study. Electronically signed by Will Valentin 08-04-2024 02:22 AM Abdomen/Pelvis CT 08/04/24 01:03 EXAM: CT abd pelvis wo con CLINICAL HISTORY: reports pt is post cardiac arrest after his found him unresponsive with agonal resp while laying in bed. pt had CPR for 5 mins, no shocks advised. on ALS arrival to pt he was alert and oriented, maintaining his airway indepenedently. family reported pt fell 2 days ago, hitting his head and has been altered since, has hematoma to left eye and cheek. TECHNIQUE: Contiguous axial images were obtained from the level of the diaphragm to the pubic symphysis without intravenous or oral contrast. Coronal and sagittal reconstructions were likewise performed and indicated to increase the sensitivity for detecting clinically relevant pathology. CT scan was performed according to ALARA (as low as reasonable achievable). 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 Evaluation of the abdominal and pelvic visceral organs is limited without intravenous contrast. The unenhanced liver, spleen, pancreas, and adrenal glands are grossly unremarkable. The gallbladder is present. The kidneys are normal in size and attenuation without obvious calcification. There is no hydronephrosis . Mild bilateral perinephric stranding. The ureters are normal in caliber. Extensive fat stranding seen around left proximal and mid ureter. Minimal fluid seen in retroperitoneum anterior to bilateral psoas. No adenopathy or fluid collections are seen. No evidence of focal or diffuse bowel wall thickening or evidence of bowel obstruction is seen. No evidence of inflamed appendix. Diffuse atherosclerotic calcification is noted involving aorta iliac arteries. Mild focal aneurysmal dilatation of abdominal aorta just above the bifurcation with maximum diameter measures 33 mm. The urinary bladder is normal in contour. Pelvic viscera are grossly unremarkable. No aggressive appearing osseous lesions are identified. Bilateral fat containing inguinal hernia. Mild fat strandings are noted involving bilateral paracolic gutter. Ill-defined subarticular sclerosis with geographic appearance are noted involving bilateral femoral head suggesting avascular necrosis. IMPRESSION: Diffuse atherosclerotic calcification is noted involving aorta iliac arteries. Mild focal aneurysmal dilatation of abdominal aorta just above the bifurcation with maximum diameter measures 33 mm.-stable. Mild bilateral pleural effusion with basal subsegmental collapse of both lower lobes are seen -new finding. Linear displaced fracture of anterior end of right fourth to seventh rib. -new finding. Extensive fat stranding seen around left proximal and mid ureter- new finding. Possibility of infective/inflammatory etiology or traumatic pathology can not be ruled out. Advised CT urography correlation. Minimal fluid seen in retroperitoneum anterior to bilateral psoas- new finding. Bilateral fat containing inguinal hernia.-stable. Ill-defined subarticular sclerosis with geographic appearance are noted involving bilateral femoral head suggesting avascular necrosis.-stable. Electronically signed by Will Valentin 08-04-2024 02:[address] 08/04/24 01:03 EXAM: CT chest diagnostic wo con CLINICAL HISTORY: reports pt is post cardiac arrest after his found him unresponsive with agonal resp while laying in bed. pt had CPR for 5 mins, no shocks advised. on ALS arrival to pt he was alert and oriented, maintaining his airway indepenedently. family reported pt fell 2 days ago, hitting his head and has been altered since, has hematoma to left eye and cheek. TECHNIQUE: Contiguous axial images were obtained from the neck base through the upper abdomen without contrast. In addition, sagittal and coronal reconstructions were performed to potentially increase the sensitivity for the detection of disease. CT scan was performed according to ALARA (as low as reasonable achievable). COMPARISON: 06/16/2023 16:45:30 [employer]. FINDINGS: Mild bilateral pleural effusion with basal subsegmental collapse of both lower lobes are seen Linear displaced fracture is noted involving anterior part of right fourth, fifth, sixth and seventh rib. Old healed fracture of left seventh and eighth rib. Patchy ill-defined ground-glass opacity with smooth interlobular septal thickening are noted involving right upper lobe Multiple linear atelectatic bands are noted in the right middle and lower lobe. No pneumothorax is seen. The central airways are patent. Evaluation of the mediastinum and nadiya is limited due to the lack of intravenous contrast. No axillary or mediastinal adenopathy is identified. The thyroid is unremarkable. The heart, aorta, and pulmonary arteries are of normal size and configuration. There are coronary artery and aortic atherosclerotic calcifications. No pericardial effusion is identified. Imaged portions of the upper abdomen are unremarkable. No aggressive appearing osseous lesions are identified. IMPRESSION: Mild bilateral pleural effusion with basal subsegmental collapse of both lower lobes are seen - increased on left side. Right pleural effusion has become loculated in current study. Linear displaced fracture is noted involving anterior part of right fourth, fifth, sixth and seventh ribs -new finding. Old healed fracture of left seventh and eighth rib. Patchy ill-defined ground-glass opacity with smooth interlobular septal thickening are noted involving right upper lobe- possibility of mild edema-new finding. Multiple linear atelectatic bands are noted in the right middle and lower lobe.- -stable. Electronically signed by Will Valentin 08-04-2024 02:34 AM ECG Additional Comments: ECG. Atrial fibrillation with rate of 81. Right bundle branch block. Inferior for age indeterminant. QTc 543 Code Status & VTE Plan VTE Prophylaxis Plan VTE Prophylaxis will be ordered: Yes
[2024-08-04] MEDS: CALCIUM GLUCONATE 1,000 MG/60 ML BAG IV STA (05:27)
--- NOTE | 2024-08-04 05:54 | Critical Care Consultation ---
Date of Consultation August 04, 2024 Assessment & Plan (1) Acute hypoxemic respiratory failure: (2) Transaminitis: (3) Acute hyponatremia: (4) Multiple fractures of ribs, left side, initial encounter for closed fracture: (5) Acute on chronic heart failure with reduced ejection fraction and diastolic dysfunction: (6) Pleural effusion: (7) Abnormal ECG: Plan Reason Critically Ill: Post cardio/pulmonary arrest at home received CPR only, no shocks and no medications. To the ICU for continued monitoring- patient will require further imaging and evaluation of heart function, perfusion and fluid volume status. Neuro - No acute needs CAM ICU: Negative - Hx of previous CVA with TNK administration- no reported residual deficits Cardiac - ? Afib, Elevated HsCTNI, ICM, HTN, HLD, hx of VT syncope, AICD in place - Patient with reports of requiring CPR at home for agonal breathing and unresponsiveness- ECG with possible new afib with RBB - chest pain patient has is reproducible at left and right sternal border - Continue to trend HsCTNI - Obtain ECHO today - - RBB appearance on ECG - possibly right sided failure in setting of chronic pulmonary disease- he is now with elevated liver enzymes, worsening renal function - obtain BNP - Appreciate cardiology consultation - Hold Amiodarone in setting of elevated LFTS - Continue BB - ECG ventricular paced irregular- possibly afib - ECG on arrival to ICU is with AV paced regular rythm - Consider anticoagulation - Continue ASA/Plavix - Elevated HsCTNI likely related to underlying cardiac dysfunction and Respiratory - Hypoxia, re-current pleural effusions, abnormal CT chest - Patient with nonspecific GGO and possibly some mucous plugging - has been being treated with Doxycyline for 6 days - remains with elevated WBC, oxygen need, cough- non productive - will broaden out abx therapy - recurrent pleural effusions possibly related to hx of CHF- will attempt to get outside pulmonary records for review - Continue with LISANDRA/LABA/ICS or equivalent - nebulizers as needed - Ultrasound legs eval for DVT - place on anticoagulation if positive GI - Elevated liver enzymes - Elevated LFTs with only new medication being initiated per his report is doxycycline - non contrast CT abd/pelvis - report as grossly unremarkable liver - multifactorial at this time to include possible infectious/reactionary inflammatory vs. congestive hepatopathy vs. 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 - ECHO as above eval heart function r/o possible cardiorenal - renally dose medications - hold Entresto - Nephrology consulted by admitting team- appreciate consultation - For his hyponatremia- free water restriction - send serum osmo, urine osmo- although he is on diuretic therapy at home - NO acute needs ENDO - ICU hyperglycemic protocol HEME - No acute needs ID - Possible remaining pneumonia - Continue doxycycline, will add Zosyn - PCT pending however if borderline will be difficult to interpret with renal function LINES/IV ACCESS - PIV Continue use of these lines DVT PROPHYLAXIS - SCDS DISPO: ICU until hemodynamics and respiratory proven stable- if does well by noon maybe able to be downgraded to floor I have personally spent 45 minutes of time in the direct management of this patient. This is a life/limb threatening event. This includes time spent evaluating patient, direct bedside care, chart review, placing orders, interpretation of diagnostic studies, discussion with consultants, patient, and family members, as well as other required patient management activities. This time is exclusive of all separately billable procedures, and teaching time and separate from and in addition to any other critical care service time. Thank you for allowing us to participate in the care of this patient. Please refer to my attending physician's documentation for any further recommendations. Supervising Physician Co-Signing Physician Notes Patient separately seen and examined from [facility]. Patient with chronic effusions related to CHF. History of right-sided Pleurx catheter. CT reveals loculated effusion from prior Pleurx. Oxygenation stable at this time. Unfortunately echo demonstrates worsening EF. Question whether biventricular pacemaker is working properly. Appreciate cardiology input. Appreciate nephrology input as well. Patient treated for sepsis with possible source including pneumonia and urinary tract infection. Recommend a 7-day course of antibiotics. Follow urine and blood cultures. Recommend repeat CT chest in approximately 6 to 8 weeks to ensure resolution of opacities. BiPAP as needed. Patient stable for downgrade out of the ICU. History of Present Illness Reason for Consultation: monitoring post respiratory/cardiac arrest Requesting Physician: August Salguero MD Attending Physician: August Salguero MD History of Present Illness 69 YOM with past medical history of- ICM, CAD with 4 stents, HTN< HLD, stroke, VT syncope, re-current pleural effusions, chronic back pain, and a fall 2 days ago onto left side. Patient was brought into the ER this evening following EMS activation at home for concerns of cardio/pulmonary arrest. CPR was started by the patient's son for concerns of unresponsiveness and agonal breathing. The patient does not recall the CPR by his son however, does remember when EMS showed up at the house and he was in his bed. By report, there were also no shocks given or other medications administered. The patient was awake and alert on arrival to the ED. In the ER the patient had CXR completed, CT head/neck/ face, non-contrast CT of chest and abd/pelvis was also obtained on arrival. Patient reports that he was started on possibly doxycycline for cough and concerns for pneumonia and he reports that he is day #6 of this, he reports no other medications being started. Patient also usure of why he fell a few days ago, but reports landing on his left side. Patient will be brought to the ICU until further diagnostics can be obtained and monitoring of cardiac and respiratory status. CODE: FULL Allergies Allergy/AdvReac Type Severity Reaction Status Date / Time spironolactone AdvReac Unknown Verified 03/01/24 09:12 Home Medications Medication Instructions Recorded Confirmed Type aspirin 81 mg tablet,delayed 81 mg PO QAM #30 tabs 02/17/20 08/04/24 Rx release ezetimibe 10 mg tablet (Zetia) 10 mg PO QAM #30 tabs 02/17/20 08/04/24 Rx nitroglycerin 0.4 mg sublingual 0.4 mg sublingual PRN PRN chest 02/17/20 08/04/24 Rx tablet (Nitrostat) pain #30 tabs allopurinol 300 mg tablet 300 mg PO HS 01/02/21 08/04/24 History vitamin B complex 1 tab PO DAILY 01/02/21 08/04/24 History albuterol sulfate 90 mcg/actuation 2 puff inhalation DIRECTED PRN 06/15/23 08/04/24 History aerosol inhaler Shortness Of Breath Or Wheezing furosemide 40 mg tablet (Lasix) 40 mg PO DAILY 06/15/23 08/04/24 History vitamins A,C,N-ytrd-tjdssk 4,296 1 cap PO QAM 06/15/23 08/04/24 History mcg-226 mg-90 mg capsule (PreserVision AREDS) clopidogrel 75 mg tablet 75 mg PO QAM #30 tabs 06/19/23 08/04/24 Rx metoprolol succinate 25 mg 25 mg PO DAILY@1800 #30 tabs 06/19/23 08/04/24 Rx tablet,extended release 24 hr metoprolol succinate 50 mg 50 mg PO QAM #30 tabs 06/19/23 08/04/24 Rx tablet,extended release 24 hr amiodarone 200 mg tablet 200 mg PO BID 03/01/24 08/04/24 History eplerenone 25 mg tablet 25 mg PO QAM 03/01/24 08/04/24 History rosuvastatin 10 mg tablet 10 mg PO DAILY 03/01/24 08/04/24 History sacubitril 97 mg-valsartan 103 mg 1 tab PO BID 03/01/24 08/04/24 History tablet (Entresto) doxycycline hyclate 100 mg capsule 100 mg PO AMHS 08/04/24 08/04/24 History fluticasone fur. 100 mcg-umeclid 1 ea inhalation QAM 08/04/24 08/04/24 History 62.5 mcg-vilant 25 mcg inhalat.powder (Trelegy Ellipta) gabapentin 300 mg capsule 300 mg PO AMHS 08/04/24 08/04/24 History Patient History Medical History Mouth cancer Neuropathic foot ulcer Nonsustained ventricular tachycardia History of tobacco abuse NSTEMI (non-ST elevated myocardial infarction) Total of 4. 1997 Circumflex, 02/16/2020 Proximal LAD, 03/07/2020 Proximal and Mid RCA NSVT (nonsustained ventricular tachycardia) Ischemic cardiomyopathy Surgical History History of colonoscopy with polypectomy multiple - prior villous adenoma in 2007 History of oral surgery excision of right mouth floor lesion, right submandibular gland, suprahyoid lymphadenectomy - 2016 History of cataract extraction History of appendectomy Stented coronary artery H/O heart artery stent Family History Father Heart disease Prostate cancer Brother Heart disease Social History Smoking Status: Unknown if ever smoked Second Hand Exposure: No; Do You Dip or Chew Tobacco: No; Hx Alcohol Use: Yes Alcohol type: beer Hx Substance Use: No Preferred Language: Luxembourgish 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 Beliefs That Will Affect Care: None marital status: Current Living Situation: Family Current Living Situation Comment: and son Feels Safe at Home: Yes Assistive Devices: None Review of Systems Review of Systems: REVIEW OF SYSTEMS: Constitutional: No fever, sweats or chills Eyes: No diplopia, no worsening or blurred vision ENT: normal hearing, no trouble swallowing Respiratory: (+) cough,Dyspnea on exertion, No sputum, Cardiovascular: No chest pain, tightness or palpitations Abdomen: No pain, nausea, vomiting, diarrhea or constipation Musculoskeletal: (+) chest pain, lower back pain, hip pain, calf pain, swelling Neurologic: No weakness, numbness/tingling, or balance problems Psychiatric: No anxiety or depression Skin: No rash or itch Physical Exam Physical Exam: PHYSICAL EXAM: General: awake, alert, no apparent distress Head: Normocephalic, bruising to left eye and left chin ENT: PERRL, EOMI, no pharyngeal exudate, mucous membranes moist, Neuro: AAO x 3, speech clear and appropriate, strength intact bilaterally 5/5, sensation intact and equal all extremities and dermatomes, no pronator drift Chest: equal rise and fall of the chest, no accessory muscle use, no heaves or thrills, decreased bases bilaterally, on 5L oxymask, Cardiac: Regular rate and rhythm, telemetry reviewed, skin warm dry, cap refill <3 seconds, peripheral pulses +2 no JVD, no murmur, no edema GI: NABS x 4 quadrants, soft, nontender to palpation, no rebound, guarding or tenderness : Spontaneously voiding, no pain, no CVA tenderness, Psych: Normal mood and affect Skin: no rash or erythema Results & Data Results & Data Vital Signs (Past 12 Hours) Vital Signs Pulse Resp BP Pulse Ox O2 Del Method O2 Flow Rate FiO2 08/04/24 04:12 60 08/04/24 04:00 60 16 147/93 H 96 Oxymask 10 08/04/24 03:30 60 17 154/94 H 94 CPAP 08/04/24 03:12 60 21 96 30 08/04/24 03:00 60 21 134/91 95 CPAP 08/04/24 02:00 60 16 126/71 93 Nasal Cannula 2 08/04/24 01:36 60 20 127/72 91 08/04/24 01:22 60 20 118/72 95 Nasal Cannula 2 08/04/24 00:51 62 22 118/66 94 Nasal Cannula 2 08/04/24 00:46 Nasal Cannula 2 08/04/24 00:44 Room Air 08/04/24 00:38 60 24 135/79 100 Room Air 08/04/24 00:36 81 17 135/79 92 Nasal Cannula 2 08/04/24 00:35 83 Laboratory Results Abnormal lab results 08/04/24 08/04/24 08/04/24 Range/Units 00:39 00:55 00:57 WBC 14.75 H (4.8-10.8) K/ul POC Hgb 13.9 L (14.0-18.0) g/dl POC Hct 41 L (42-52) % RDW Std Deviation 54.6 H (36.4-46.3) fL RDW Coeff of Sim 15.6 H (11.5-14.5) % Neut # (Auto) 10.49 H (1.40-6.50) K/uL Ware # (Auto) 1.61 H (0.11-0.59) K/uL Immature Gran # (Auto) 0.50 H (0.01-0.20) K/uL PT (9.0-12.0) Seconds INR (0.9-1.1) VBG pH 7.31 L (7.36-7.41) POC Sodium 128 L (135-144) mmol/L Sodium 128 L (136-145) mmol/L POC Potassium 5.4 H (3.3-5.0) mmol/L Potassium 5.4 H (3.5-5.1) mmol/L POC Chloride 93 L (101-112) mmol/L Chloride 89 L (98-107) mmol/L Anion Gap 15 H (3-11) POC BUN 28 H (7-18) mg/dl BUN 30 H (6-23) mg/dl Creatinine 2.24 H (0.6-1.4) mg/dl POC Creatinine 2.3 H (0.6-1.3) mg/dl POC Ioniz Calcium Moises 1.10 L (1.12-1.32) mmol/l Total Bilirubin 2.0 H (0.2-1.0) mg/dl AST 727 H (13-39) U/L ALT 427 H (7-52) U/L Alkaline Phosphatase 331 H (34-104) U/L Troponin I High Sens 67.5 H* (0-20) pg/ml 08/04/24 08/04/24 Range/Units 01:03 03:02 WBC (4.8-10.8) K/ul POC Hgb (14.0-18.0) g/dl POC Hct (42-52) % RDW Std Deviation (36.4-46.3) fL RDW Coeff of Sim (11.5-14.5) % Neut # (Auto) (1.40-6.50) K/uL Ware # (Auto) (0.11-0.59) K/uL Immature Gran # (Auto) (0.01-0.20) K/uL PT 16.8 H (9.0-12.0) Seconds INR 1.6 H (0.9-1.1) VBG pH (7.36-7.41) POC Sodium (135-144) mmol/L Sodium (136-145) mmol/L POC Potassium (3.3-5.0) mmol/L Potassium (3.5-5.1) mmol/L POC Chloride (101-112) mmol/L Chloride (98-107) mmol/L Anion Gap (3-11) POC BUN (7-18) mg/dl BUN (6-23) mg/dl Creatinine (0.6-1.4) mg/dl POC Creatinine (0.6-1.3) mg/dl POC Ioniz Calcium Moises (1.12-1.32) mmol/l Total Bilirubin (0.2-1.0) mg/dl AST (13-39) U/L ALT (7-52) U/L Alkaline Phosphatase (34-104) U/L Troponin I High Sens 420.7 H* D (0-20) pg/ml Diagnostic Findings Cervical Spine CT 08/04/24 00:40 EXAM: CT cervical spine wo con CLINICAL HISTORY: reports pt is post cardiac arrest after his found him unresponsive with agonal resp while laying in bed. pt had CPR for 5 mins, no shocks advised. on ALS arrival to pt he was alert and oriented, maintaining his airway indepenedently. family reported pt fell 2 days ago, hitting his head and has been altered since, has hematoma to left eye and cheek. TECHNIQUE: Computed tomography of the cervical spine performed without intravenous contrast. Contiguous axial images were obtained from the skull base to T2, with sagittal and coronal reformatted images reconstructed from the axial data. CT scan was performed according to ALARA (as low as reasonable achievable). COMPARISON: None. FINDINGS: Loss of cervical lordosis - suggest possibility of muscle spasm/positional. Degenerative changes involving cervical spine in the form of multilevel marginal osteophytes, disc space reduction and facetal arthrosis. Cervical vertebral bodies are normal in height and alignment, with no evidence of fracture or subluxation. Lateral masses of C1 are symmetrical, and the dens is intact. Prevertebral soft tissues are not widened. The remaining suprahyoid and infrahyoid soft tissues in the neck are unremarkable. Posterior uncovertebral arthrosis is noted at C5-C6 and C6-C7 levels, which indenting ventral thecal sac and causes bilateral neuroforaminal narrowing. Thyroid gland appears unremarkable. IMPRESSION: 1.No acute fracture or subluxation in the cervical spine. 2.Cervical spondylosis. Electronically signed by Will Valentin 08-04-2024 02:38 AM Chest X-Ray 08/04/24 00:40 EXAM: XR chest 1V portable CLINICAL HISTORY: TRAUMA/POST CPR SDM TECHNIQUE: Radiograph of chest was acquired. COMPARISON: 01 march 2024. FINDINGS: Pacemaker noted in situ. Cardiomegaly is detected. No significant interval change. Blunting of the right costophrenic angle is noted, suggestive of pleural effusion. Left costophrenic angle appear clear. Stable age indeterminate fracture of the left eighth rib is noted. Haziness is noted in the right lung burnett, either due to pleural effusion or radiographic obliquity. Rest of the lung burnett appear clear. Rest of the findings are unchanged. IMPRESSION: 1. Cardiomegaly is detected. No significant interval change. 2. Blunting of the right costophrenic angle is noted, suggestive of pleural effusion. No significant interval change. 3. Haziness is noted in the right lung burnett, either due to pleural effusion or radiographic obliquity. 4. Stable age indeterminate fracture of the left eighth rib is noted. No significant interval new findings noted as compared to the previous radiograph. Electronically signed by Will Valentin 08-04-2024 03:[address] 08/04/24 00:40 EXAM: CT facial bones wo con CLINICAL HISTORY: reports pt is post cardiac arrest after his found him unresponsive with agonal resp while laying in bed. pt had CPR for 5 mins, no shocks advised. on ALS arrival to pt he was alert and oriented, maintaining his airway indepenedently. family reported pt fell 2 days ago, hitting his head and has been altered since, has hematoma to left eye and cheek. TECHNIQUE: Computed tomography of the orbits/face was performed without intravenous contrast. Contiguous axial images were obtained. Reformatted coronal and sagittal images were also reviewed. CT scan was performed according to ALARA (as low as reasonable achievable). COMPARISON: none. FINDINGS: Right frontal and bilateral maxillary sinusitis. S shaped nasal septum deviation with bony spur formation. No acute facial fractures. Rest of paranasal sinuses and mastoid air cells are clear. The globes, optic nerves, extraocular muscles and retro-orbital fat are grossly unremarkable. Reformatted imaging demonstrates intact roof and floor of the orbits. Included portions of the mandible are intact. The included intracranial substances and airway are unremarkable. IMPRESSION: Right frontal and bilateral maxillary sinusitis. S shaped nasal septum deviation with bony spur formation. No obvious facial bone fracture. Electronically signed by Will Valentin 08-04-2024 02:[address] 08/04/24 00:40 EXAM: CT head/brain wo con CLINICAL HISTORY: reports pt is post cardiac arrest after his found him unresponsive with agonal resp while laying in bed. pt had CPR for 5 mins, no shocks advised. on ALS arrival to pt he was alert and oriented, maintaining his airway indepenedently. family reported pt fell 2 days ago, hitting his head and has been altered since, has hematoma to left eye and cheek. TECHNIQUE: Multiple axial images are obtained from the skull base to the vertex without contrast. CT scan was performed according to ALARA (as low as reasonable achievable). COMPARISON: 06/15/2023 15:55:05 SAMPLE SEWER. FINDINGS: There is cerebral atrophy. No evidence of space occupying lesion, hemorrhage, edema, mass effect, midline shift, extra axial collection, or hydrocephalus is noted. Basal cisterns are symmetric and normal in size and configuration. There are scattered periventricular hypodensities as can be seen with chronic microvascular ischemic changes. The painter-white matter differentiation is preserved. Left maxillary sinusitis. Rest of paranasal sinuses and mastoid air cells are well aerated. Orbital contents are within normal limits. Bony structures are intact. IMPRESSION: 1. No evidence of acute intracranial abnormality is demonstrated. 2. Chronic microvascular ischemic changes. 3. Cerebral atrophy. No other new interval abnormality since prior study. Electronically signed by Will Valentin 08-04-2024 02:22 AM Abdomen/Pelvis CT 08/04/24 01:03 EXAM: CT abd pelvis wo con CLINICAL HISTORY: reports pt is post cardiac arrest after his found him unresponsive with agonal resp while laying in bed. pt had CPR for 5 mins, no shocks advised. on ALS arrival to pt he was alert and oriented, maintaining his airway indepenedently. family reported pt fell 2 days ago, hitting his head and has been altered since, has hematoma to left eye and cheek. TECHNIQUE: Contiguous axial images were obtained from the level of the diaphragm to the pubic symphysis without intravenous or oral contrast. Coronal and sagittal reconstructions were likewise performed and indicated to increase the sensitivity for detecting clinically relevant pathology. CT scan was performed according to ALARA (as low as reasonable achievable). COMPARISON: 01/02/2021 16:33:00 SAMPLE SEWER FINDINGS: Mild bilateral pleural effusion with basal subsegmental collapse of both lower lobes are seen Linear displaced fracture of anterior end of right fourth to seventh rib. Evaluation of the abdominal and pelvic visceral organs is limited without intravenous contrast. The unenhanced liver, spleen, pancreas, and adrenal glands are grossly unremarkable. The gallbladder is present. The kidneys are normal in size and attenuation without obvious calcification. There is no hydronephrosis . Mild bilateral perinephric stranding. The ureters are normal in caliber. Extensive fat stranding seen around left proximal and mid ureter. Minimal fluid seen in retroperitoneum anterior to bilateral psoas. No adenopathy or fluid collections are seen. No evidence of focal or diffuse bowel wall thickening or evidence of bowel obstruction is seen. No evidence of inflamed appendix. Diffuse atherosclerotic calcification is noted involving aorta iliac arteries. Mild focal aneurysmal dilatation of abdominal aorta just above the bifurcation with maximum diameter measures 33 mm. The urinary bladder is normal in contour. Pelvic viscera are grossly unremarkable. No aggressive appearing osseous lesions are identified. Bilateral fat containing inguinal hernia. Mild fat strandings are noted involving bilateral paracolic gutter. Ill-defined subarticular sclerosis with geographic appearance are noted involving bilateral femoral head suggesting avascular necrosis. IMPRESSION: Diffuse atherosclerotic calcification is noted involving aorta iliac arteries. Mild focal aneurysmal dilatation of abdominal aorta just above the bifurcation with maximum diameter measures 33 mm.-stable. Mild bilateral pleural effusion with basal subsegmental collapse of both lower lobes are seen -new finding. Linear displaced fracture of anterior end of right fourth to seventh rib. -new finding. Extensive fat stranding seen around left proximal and mid ureter- new finding. Possibility of infective/inflammatory etiology or traumatic pathology can not be ruled out. Advised CT urography correlation. Minimal fluid seen in retroperitoneum anterior to bilateral psoas- new finding. Bilateral fat containing inguinal hernia.-stable. Ill-defined subarticular sclerosis with geographic appearance are noted involving bilateral femoral head suggesting avascular necrosis.-stable. Electronically signed by Will Valentin 08-04-2024 02:[address] 08/04/24 01:03 EXAM: CT chest diagnostic wo con CLINICAL HISTORY: reports pt is post cardiac arrest after his found him unresponsive with agonal resp while laying in bed. pt had CPR for 5 mins, no shocks advised. on ALS arrival to pt he was alert and oriented, maintaining his airway indepenedently. family reported pt fell 2 days ago, hitting his head and has been altered since, has hematoma to left eye and cheek. TECHNIQUE: Contiguous axial images were obtained from the neck base through the upper abdomen without contrast. In addition, sagittal and coronal reconstructions were performed to potentially increase the sensitivity for the detection of disease. CT scan was performed according to ALARA (as low as reasonable achievable). COMPARISON: 06/16/2023 16:45:30 SAMPLE SEWER. FINDINGS: Mild bilateral pleural effusion with basal subsegmental collapse of both lower lobes are seen Linear displaced fracture is noted involving anterior part of right fourth, fifth, sixth and seventh rib. Old healed fracture of left seventh and eighth rib. Patchy ill-defined ground-glass opacity with smooth interlobular septal thickening are noted involving right upper lobe Multiple linear atelectatic bands are noted in the right middle and lower lobe. No pneumothorax is seen. The central airways are patent. Evaluation of the mediastinum and nadiya is limited due to the lack of intravenous contrast. No axillary or mediastinal adenopathy is identified. The thyroid is unremarkable. The heart, aorta, and pulmonary arteries are of normal size and configuration. There are coronary artery and aortic atherosclerotic calcifications. No pericardial effusion is identified. Imaged portions of the upper abdomen are unremarkable. No aggressive appearing osseous lesions are identified. IMPRESSION: Mild bilateral pleural effusion with basal subsegmental collapse of both lower lobes are seen - increased on left side. Right pleural effusion has become loculated in current study. Linear displaced fracture is noted involving anterior part of right fourth, fifth, sixth and seventh ribs -new finding. Old healed fracture of left seventh and eighth rib. Patchy ill-defined ground-glass opacity with smooth interlobular septal thickening are noted involving right upper lobe- possibility of mild edema-new finding. Multiple linear atelectatic bands are noted in the right middle and lower lobe.- -stable. Electronically signed by Will Valentin 08-04-2024 02:34 AM Medications Administered Home Medications aspirin 81 mg tablet,delayed release 81 mg PO QAM #30 tabs 02/17/20 [Rx Confirmed 08/04/24] ezetimibe 10 mg tablet (Zetia) 10 mg PO QAM #30 tabs 02/17/20 [Rx Confirmed 08/04/24] nitroglycerin 0.4 mg sublingual tablet (Nitrostat) 0.4 mg sublingual PRN PRN chest pain #30 tabs 02/17/20 [Rx Confirmed 08/04/24] allopurinol 300 mg tablet 300 mg PO HS 01/02/21 [History Confirmed 08/04/24] vitamin B complex 1 tab PO DAILY 01/02/21 [History Confirmed 08/04/24] albuterol sulfate 90 mcg/actuation aerosol inhaler 2 puff inhalation DIRECTED PRN Shortness Of Breath Or Wheezing 06/15/23 [History Confirmed 08/04/24] furosemide 40 mg tablet (Lasix) 40 mg PO DAILY 06/15/23 [History Confirmed 08/04/24] vitamins A,C,L-gpab-stqcwh 4,296 mcg-226 mg-90 mg capsule (PreserVision AREDS) 1 cap PO QAM 06/15/23 [History Confirmed 08/04/24] clopidogrel 75 mg tablet 75 mg PO QAM #30 tabs 06/19/23 [Rx Confirmed 08/04/24] metoprolol succinate 25 mg tablet,extended release 24 hr 25 mg PO DAILY@1800 #30 tabs 06/19/23 [Rx Confirmed 08/04/24] metoprolol succinate 50 mg tablet,extended release 24 hr 50 mg PO QAM #30 tabs 06/19/23 [Rx Confirmed 08/04/24] amiodarone 200 mg tablet 200 mg PO BID 03/01/24 [History Confirmed 08/04/24] eplerenone 25 mg tablet 25 mg PO QAM 03/01/24 [History Confirmed 08/04/24] rosuvastatin 10 mg tablet 10 mg PO DAILY 03/01/24 [History Confirmed 08/04/24] sacubitril 97 mg-valsartan 103 mg tablet (Entresto) 1 tab PO BID 03/01/24 [History Confirmed 08/04/24] doxycycline hyclate 100 mg capsule 100 mg PO AMHS 08/04/24 [History Confirmed 08/04/24] fluticasone fur. 100 mcg-umeclid 62.5 mcg-vilant 25 mcg inhalat.powder (Trelegy Ellipta) 1 ea inhalation QAM 08/04/24 [History Confirmed 08/04/24] gabapentin 300 mg capsule 300 mg PO AMHS 08/04/24 [History Confirmed 08/04/24] Active Medications Miscellaneous (Remove Lidoderm Patch) 1 each N/A DAILY@2100 ANGELES Stop: 09/03/24 20:59 ECG Additional Comments: Atrial fibrillation Right bundle branch block PossibleLateral infarct, age undetermined Inferior infarct, age undetermined Abnormal ECG When compared with ECG [id number] 14:04, Atrial fibrillationhas replacedElectronic ventricular pacemaker Coding Level of Care Code 62810 IN/OBS CONSULT LVL 3,45M Diagnoses Acute hypoxemic respiratory failure J96.01 Transaminitis R74.01 Acute hyponatremia E87.1 Multiple fractures of ribs, left side, initial encounter for closed fracture S22.42XA Acute on chronic heart failure with reduced ejection fraction and diastolic dysfunction I50.43 Pleural effusion J90 Abnormal ECG R94.31
[2024-08-04] MEDS ORDERED: POLYETHYLENE (MIRALAX) 17 GM PACK PO PRN (06:52)
[2024-08-04] MEDS ORDERED: LEVALBUTEROL 1.25 MG/3 ML NEB NEB PRN (06:52)
[2024-08-04] MEDS ORDERED: NITROGLYCERIN SL 0.4 MG/TAB TAB SL PRN ×2 (06:52)
[2024-08-04 07:44] LABS: BUN Creatinine Ratio 15.8 (10-20); Basophils # (auto) 0.07 K/uL (0.00-0.20); Basophils % (auto) 0.5 %; Calcium 9.6 mg/dl (8.6-10.3); Creatinine Clr Calc Pharmacy 40.1 ml/min; Hemoglobin 13.5 g/dl (14.0-18.0); Immature Granulocytes # (auto) 0.16 K/uL (0.01-0.20); Immature Granulocytes % (auto) 1.1 %; Lymphocytes # (auto) 1.11 K/uL (1.20-3.40); Lymphocytes % (auto) 7.5 %; Magnesium 1.6 mg/dl (1.7-2.4); Mean Corpuscular Hemoglobin 31.3 pg (25.0-34.0); Mean Corpuscular Hgb Conc 33.8 g/dL (32.0-36.0); Mean Corpuscular Volume 92.8 fL (80.0-100.0); Mean Platelet Volume 9.5 fL (9.4-12.4); Monocytes # (auto) 1.77 K/uL (0.11-0.59); Monocytes % (auto) 11.9 %; Neutrophils # (auto) 11.71 K/uL (1.40-6.50); Platelet Count 126 K/uL (130-400); Potassium 5.1 mmol/L (3.5-5.1); RDW Coefficient of Variation 15.4 % (11.5-14.5); RDW Standard Deviation 51.9 fL (36.4-46.3); Red Blood Count 4.31 M/uL (4.70-6.10); White Blood Count 14.82 K/ul (4.8-10.8)
[2024-08-04 07:54] LABS: Troponin I High Sensitivity 516.5 pg/ml (0-20)
[2024-08-04] MEDS: SODIUM CHLORIDE 0.9% 1,000 ML IV SCH (08:04)
[2024-08-04] MEDS: PIPERACILLIN/TAZOBACTAM 4.5 GM/100 ML BAG IV SCH (08:04)
[2024-08-04] MEDS: CLOPIDOGREL BISULFATE 75 MG TAB PO SCH (08:05)
[2024-08-04] MEDS: VITAMIN B COMPLEX TAB PO SCH (08:05)
[2024-08-04] MEDS: UMECLIDINIUM/VILANTEROL 62.5/25MCG 7 PUFFS/INHALER INH SCH (08:05)
[2024-08-04] MEDS: ASPIRIN 81 MG ECTAB PO SCH (08:05)
[2024-08-04] MEDS: FLUTICASONE FUROATE 100MCG 14 PUFFS/INHALER INH SCH (08:06)
[2024-08-04] MEDS: GABAPENTIN 300 MG CAP PO SCH (08:06)
[2024-08-04] MEDS: EZETIMIBE 10 MG TAB PO SCH (08:06)
[2024-08-04] MEDS: METOPROLOL SUCC 50MG EXT REL TAB PO SCH (08:06)
[2024-08-04] MEDS: DOXYCYCLINE HYCLATE 100 MG CAP PO SCH (08:06)
[2024-08-04] MEDS: ROSUVASTATIN CALCIUM 10 MG TAB PO SCH (08:06)
[2024-08-04] MEDS: CEROVITE ADV FORMULA TAB PO SCH (08:06)
--- NOTE | 2024-08-04 08:18 | Nephrology Consultation ---
Date of Consultation August 04, 2024 Assessment & Plan (1) Acute kidney injury: stable SP w/ presenting creatinine 2.8, baseline creatinine 1.2. UA w/ granular casts, protein, blood. electrolytes acceptable; moderate volume overload as evidenced by pleural effusions, chronic HF -no nephro indication for do currently >> needs frequent bladder scans until voiding consistently -continue to hold diuretics for now unless respiratory status worsens; likely to need diuretics soon -continue to hold entresto, eplerenone -strict I/O >asked to check CK >> ULN > would check at least one more to assess trend after CPR yesterday (2) Transaminitis: slightly worse today > ? congestive >monitor; f/u RUQ u/s (3) Chronic hyponatremia: chronic mild-moderate hyponatremia w/ levels of about 130 most recently summer 2023 as OP; serum osms 282; uOsm 740's -monitor daily -consider fluid limit if worsening History of Present Illness Reason for Consultation: SP, hyperkalemia Requesting Physician: Dr Salguero Attending Physician: Ninoska Vines MD History of Present Illness 69 y/o M whom I'm asked to see for SP and hyperkalemia was admitted last evening to ICU after cardiopulmonary arrest at home, received CPR from son w/o shocks or medications d/t concerns for unresponsiveness, agonal breathing. 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 Also presumed chronic hyponatremia w/ sNa 129-132 in January & February 2024. He was started on doxycycline about a week prior to admission for ongoing cough just after completing a course of azithromycin. TTE is pending. amiodarone held d/t transaminiis. hypoxic in ICU on 4L currently > zosyn was added to coverage. his baseline creatinine is consistently 1.2 on OP labs January - Jun 2024. presenting creatinine 2.2. entresto held. presenting sodium 128, unchanged this am. voided once in ER per report; none since arrival to ICU. takes daily lasix, eplerenone, entresto as OP. no complaints except rib pain L side w/ deep inspiration and other times unpredictably. denies dyspnea; denies facial pain; no n/v, no chest pain, no decreased po, no cough or edema. no f/c; no new/worrisome voiding sx. no recent nsaid use. Allergies Allergy/AdvReac Type Severity Reaction Status Date / Time spironolactone AdvReac Unknown Verified 03/01/24 09:12 Home Medications Medication Instructions Recorded Confirmed Type aspirin 81 mg tablet,delayed 81 mg PO QAM #30 tabs 02/17/20 08/04/24 Rx release ezetimibe 10 mg tablet (Zetia) 10 mg PO QAM #30 tabs 02/17/20 08/04/24 Rx nitroglycerin 0.4 mg sublingual 0.4 mg sublingual PRN PRN chest 02/17/20 08/04/24 Rx tablet (Nitrostat) pain #30 tabs allopurinol 300 mg tablet 300 mg PO HS 01/02/21 08/04/24 History vitamin B complex 1 tab PO DAILY 01/02/21 08/04/24 History albuterol sulfate 90 mcg/actuation 2 puff inhalation DIRECTED PRN 06/15/23 08/04/24 History aerosol inhaler Shortness Of Breath Or Wheezing furosemide 40 mg tablet (Lasix) 40 mg PO DAILY 06/15/23 08/04/24 History vitamins A,C,Q-xgoy-gkxxgx 4,296 1 cap PO QAM 06/15/23 08/04/24 History mcg-226 mg-90 mg capsule (PreserVision AREDS) clopidogrel 75 mg tablet 75 mg PO QAM #30 tabs 06/19/23 08/04/24 Rx metoprolol succinate 25 mg 25 mg PO DAILY@1800 #30 tabs 06/19/23 08/04/24 Rx tablet,extended release 24 hr metoprolol succinate 50 mg 50 mg PO QAM #30 tabs 06/19/23 08/04/24 Rx tablet,extended release 24 hr amiodarone 200 mg tablet 200 mg PO BID 03/01/24 08/04/24 History eplerenone 25 mg tablet 25 mg PO QAM 03/01/24 08/04/24 History rosuvastatin 10 mg tablet 10 mg PO DAILY 03/01/24 08/04/24 History sacubitril 97 mg-valsartan 103 mg 1 tab PO BID 03/01/24 08/04/24 History tablet (Entresto) doxycycline hyclate 100 mg capsule 100 mg PO AMHS 08/04/24 08/04/24 History fluticasone fur. 100 mcg-umeclid 1 ea inhalation QAM 08/04/24 08/04/24 History 62.5 mcg-vilant 25 mcg inhalat.powder (Trelegy Ellipta) gabapentin 300 mg capsule 300 mg PO AMHS 08/04/24 08/04/24 History Patient History Medical History Mouth cancer Neuropathic foot ulcer Nonsustained ventricular tachycardia History of tobacco abuse NSTEMI (non-ST elevated myocardial infarction) Total of 4. 1997 Circumflex, 02/16/2020 Proximal LAD, 03/07/2020 Proximal and Mid RCA NSVT (nonsustained ventricular tachycardia) Ischemic cardiomyopathy Surgical History History of colonoscopy with polypectomy multiple - prior villous adenoma in 2007 History of oral surgery excision of right mouth floor lesion, right submandibular gland, suprahyoid lymphadenectomy - 2016 History of cataract extraction History of appendectomy Stented coronary artery H/O heart artery stent Family History Father Heart disease Prostate cancer Brother Heart disease Social History Smoking Status: Unknown if ever smoked Second Hand Exposure: No; Do You Dip or Chew Tobacco: No; Hx Alcohol Use: Yes Alcohol type: beer Hx Substance Use: No Preferred Language: [place] Communication Ability: Effective 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 Beliefs That Will Affect Care: None marital status: Current Living Situation: Family Current Living Situation Comment: and son Feels Safe at Home: Yes Safety Concerns: Feels Safe At This Time Assistive Devices: None Review of Systems 2 Review of Systems: All systems reviewed & are unremarkable except as noted in HPI & below Physical Exam 2 Constitutional: well developed and well nourished Eyes: EOM intact bilaterally ENMT: Mouth: + dry oral mucous membranes Respiratory: normal respiratory effort Auscultation: + diminished lung sounds Gastrointestinal (Abdomen): Inspection/Auscultation: normal bowel sounds P ercussion/Palpation: abdomen soft; abdomen nontender Musculoskeletal: Extremities: strength 5/5 throughout Skin: no rashes, warm and dry Neurologic: munoz, fluent speech, no tremor Results & Data Vital Signs (Past 12 Hours) Vital Signs Temp Pulse Pulse Resp BP BP Pulse Ox 08/04/24 07:00 08/04/24 06:32 36.5 C 61 18 143/97 H 96 08/04/24 06:00 94 08/04/24 04:12 60 08/04/24 04:00 60 16 147/93 H 96 08/04/24 03:30 60 17 154/94 H 94 08/04/24 03:12 60 21 96 08/04/24 03:00 60 21 134/91 95 08/04/24 02:00 60 16 126/71 93 08/04/24 01:36 60 20 127/72 91 08/04/24 01:22 60 20 118/72 95 08/04/24 00:51 62 22 118/66 94 08/04/24 00:46 08/04/24 00:44 08/04/24 00:38 60 24 135/79 100 08/04/24 00:36 81 17 135/79 92 08/04/24 00:35 83 O2 Del Method O2 Flow Rate FiO2 08/04/24 07:00 Oxymask 4 08/04/24 06:32 Oxymask 4 08/04/24 06:00 Oxymask 4 08/04/24 04:12 08/04/24 04:00 Oxymask 10 08/04/24 03:30 CPAP 08/04/24 03:12 30 08/04/24 03:00 CPAP 08/04/24 02:00 Nasal Cannula 2 08/04/24 01:36 08/04/24 01:22 Nasal Cannula 2 08/04/24 00:51 Nasal Cannula 2 08/04/24 00:46 Nasal Cannula 2 08/04/24 00:44 Room Air 08/04/24 00:38 Room Air 08/04/24 00:36 Nasal Cannula 2 08/04/24 00:35 Laboratory Results 08/04/24 07:02 08/04/24 07:[address] chest Mild bilateral pleural effusion with basal subsegmental collapse of both lower lobes are seen - increased on left side. Right pleural effusion has become loculated in current study. Linear displaced fracture is noted involving anterior part of right fourth, fifth, sixth and seventh ribs -new finding. Old healed fracture of left seventh and eighth rib. Patchy ill-defined ground-glass opacity with smooth interlobular septal thickening are noted involving right upper lobe- possibility of mild edema-new finding. Multiple linear atelectatic bands are noted in the right middle and lower lobe.- -stable.
[2024-08-04] MEDS ORDERED: NON-FORMULARY MEDICATION (Fluticasone-Umeclidin-Vilanter [Trelegy Ellipta] 100-62.5-25 mcg INH SCH (09:00)
[2024-08-04] MEDS ORDERED: MAGNESIUM SULFATE / D5W 1 GM/100 ML BAG IV ONE (09:58)
[2024-08-04] MEDS: MAGNESIUM SULFATE / D5W 1 GM/100 ML BAG IV SCH (10:22)
--- NOTE | 2024-08-04 10:39 | Gastrointestinal Consultation ---
Date of Consultation August 04, 2024 Assessment & Plan (1) Transaminitis: Significant likely component from hypotension and ischemic hepatitis. Awaiting serology for hepatitis. History of chronic alcohol use though underlying liver disease may be present. He does have low platelets not typically associated with ischemic hepatitis. Follow liver tests trends over the next few days. Will recommend of course of abstaining from alcohol. (2) Hyperbilirubinemia: Plan Suspect that elevation in LFTs is reactionary in nature to current cardiac events. - trend LFTs. - can check hepatitis panel. - US of liver with dopplers are pending. - I advised patient to work towards alcohol cessation. 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 When he was going to sleep suddenly stopped breathing. His son started CPR and EMS were called. When EMS arrived patient was in agonal breathing and pulses were present. CPR was continued for 5 minutes and no medication administered. AED pads were applied but no shock advised. During his ED work up he was found to have elevated LFTs. CT of abdomen/pelvis shown an unremarkable liver. LFTs were unremarkable in 05/2023 outside of a t bili 1.2. no family history of liver disease. Patient admits to daily etoh use of 2 beers daily. He drank heavier in the past and admits he has been drinking for 40 years. no drug use. 08/04/24 INR 1.6, total bili 2, AST 727, ALT 427, ALK 331. Allergies Allergy/AdvReac Type Severity Reaction Status Date / Time spironolactone AdvReac Unknown Verified 03/01/24 09:12 Home Medications Medication Instructions Recorded Confirmed Type aspirin 81 mg tablet,delayed 81 mg PO QAM #30 tabs 02/17/20 08/04/24 Rx release ezetimibe 10 mg tablet (Zetia) 10 mg PO QAM #30 tabs 02/17/20 08/04/24 Rx nitroglycerin 0.4 mg sublingual 0.4 mg sublingual PRN PRN chest 02/17/20 08/04/24 Rx tablet (Nitrostat) pain #30 tabs allopurinol 300 mg tablet 300 mg PO HS 01/02/21 08/04/24 History vitamin B complex 1 tab PO DAILY 01/02/21 08/04/24 History albuterol sulfate 90 mcg/actuation 2 puff inhalation DIRECTED PRN 06/15/23 08/04/24 History aerosol inhaler Shortness Of Breath Or Wheezing furosemide 40 mg tablet (Lasix) 40 mg PO DAILY 06/15/23 08/04/24 History vitamins A,C,T-kjqj-akcmsc 4,296 1 cap PO QAM 06/15/23 08/04/24 History mcg-226 mg-90 mg capsule (PreserVision AREDS) clopidogrel 75 mg tablet 75 mg PO QAM #30 tabs 06/19/23 08/04/24 Rx metoprolol succinate 25 mg 25 mg PO DAILY@1800 #30 tabs 06/19/23 08/04/24 Rx tablet,extended release 24 hr metoprolol succinate 50 mg 50 mg PO QAM #30 tabs 06/19/23 08/04/24 Rx tablet,extended release 24 hr amiodarone 200 mg tablet 200 mg PO BID 03/01/24 08/04/24 History eplerenone 25 mg tablet 25 mg PO QAM 03/01/24 08/04/24 History rosuvastatin 10 mg tablet 10 mg PO DAILY 03/01/24 08/04/24 History sacubitril 97 mg-valsartan 103 mg 1 tab PO BID 03/01/24 08/04/24 History tablet (Entresto) doxycycline hyclate 100 mg capsule 100 mg PO AMHS 08/04/24 08/04/24 History fluticasone fur. 100 mcg-umeclid 1 ea inhalation QAM 08/04/24 08/04/24 History 62.5 mcg-vilant 25 mcg inhalat.powder (Trelegy Ellipta) gabapentin 300 mg capsule 300 mg PO AMHS 08/04/24 08/04/24 History Patient History Medical History Mouth cancer Neuropathic foot ulcer Nonsustained ventricular tachycardia History of tobacco abuse NSTEMI (non-ST elevated myocardial infarction) Total of 4. 1997 Circumflex, 02/16/2020 Proximal LAD, 03/07/2020 Proximal and Mid RCA NSVT (nonsustained ventricular tachycardia) Ischemic cardiomyopathy Surgical History History of colonoscopy with polypectomy multiple - prior villous adenoma in 2007 History of oral surgery excision of right mouth floor lesion, right submandibular gland, suprahyoid lymphadenectomy - 2016 History of cataract extraction History of appendectomy Stented coronary artery H/O heart artery stent Family History Father Heart disease Prostate cancer Brother Heart disease Social History Smoking Status: Unknown if ever smoked Second Hand Exposure: No; Do You Dip or Chew Tobacco: No; Hx Alcohol Use: Yes Alcohol type: beer Hx Substance Use: No Preferred Language: Danish Communication Ability: Effective 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 Beliefs That Will Affect Care: None marital status: Current Living Situation: Family Current Living Situation Comment: and son Feels Safe at Home: Yes Assistive Devices: Walker Review of Systems Review of Systems: All systems reviewed & are unremarkable except as noted in HPI & below Physical Exam Constitutional: WD/WN, vitals as above Respiratory: normal respiratory effort, lungs clear to auscultation Cardiovascular: Rate/Rhythm: regular rate and regular rhythm Gastrointestinal (Abdomen): normal bowel sounds, soft, nontender, no hepatosplenomegaly Psychiatric: Orientation: alert and oriented x 3 Affect: euthymic affect Results & Data Vital Signs (Past 12 Hours) Vital Signs Temp Pulse Pulse Resp BP BP Pulse Ox 08/04/24 07:00 08/04/24 06:32 97.7 F 61 18 143/97 H 96 08/04/24 06:00 94 08/04/24 04:12 60 08/04/24 04:00 60 16 147/93 H 96 08/04/24 03:30 60 17 154/94 H 94 08/04/24 03:12 60 21 96 08/04/24 03:00 60 21 134/91 95 08/04/24 02:00 60 16 126/71 93 08/04/24 01:36 60 20 127/72 91 08/04/24 01:22 60 20 118/72 95 08/04/24 00:51 62 22 118/66 94 08/04/24 00:46 08/04/24 00:44 08/04/24 00:38 60 24 135/79 100 08/04/24 00:36 81 17 135/79 92 08/04/24 00:35 83 O2 Del Method O2 Flow Rate FiO2 08/04/24 07:00 Oxymask 4 08/04/24 06:32 Oxymask 4 08/04/24 06:00 Oxymask 4 08/04/24 04:12 08/04/24 04:00 Oxymask 10 08/04/24 03:30 CPAP 08/04/24 03:12 30 08/04/24 03:00 CPAP 08/04/24 02:00 Nasal Cannula 2 08/04/24 01:36 08/04/24 01:22 Nasal Cannula 2 08/04/24 00:51 Nasal Cannula 2 08/04/24 00:46 Nasal Cannula 2 08/04/24 00:44 Room Air 08/04/24 00:38 Room Air 08/04/24 00:36 Nasal Cannula 2 08/04/24 00:35 Coding Level of Care Code 79153 INT INP/OBS CARE 2/55MIN Diagnoses Transaminitis R74.01 Hyperbilirubinemia E80.6
--- NOTE | 2024-08-04 10:53 | Ultrasound Report ---
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 FINDINGS: There is normal compressibility, flow, and augmentation within the bilateral lower extremit y deep venous systems. IMPRESSION: No DVT within the right or left lower extremity. ACT 112: Negative or not required by law. Electronically signed by: Mina Vu M.D. 08/04/2024 10:47 AM
[2024-08-04] MEDS: PANTOprazole 40 MG/10 ML SYR IV SCH (10:59)
--- NOTE | 2024-08-04 11:02 | Ultrasound Report ---
US duplex portal hepatic veins CLINICAL HISTORY: eval for thrombus TECHNIQUE: Grayscale, color and spectral waveform Doppler examination of the abdomen was performed. Comparison: Comparison is made to CT abdomen pelvis 08/04/2024 FINDINGS: The hepatic veins, portal veins, IVC and splenic vein are patent with no thrombus identified. Flow is in the correct direction. No ascites is seen. Heterogeneous and hyperechoic liver is seen compatible with steatosis. The liver measures 19.6 cm. IMPRESSION: No portal vein thrombosis. Hepatic steatosis. ACT 112: Negative or not required by law. Electronically signed by: Emiliano Gamble M.D. 08/04/2024 10:58 AM
--- NOTE | 2024-08-04 11:13 | Cardiology Consultation ---
Date of Consultation August 04, 2024 Assessment & Plan (1) Respiratory arrest before cardiac arrest: (2) Acute on chronic heart failure with reduced ejection fraction and diastolic dysfunction: (3) Multiple fractures of ribs, left side, initial encounter for closed fracture: The patient's biventricular AICD was interrogated with the assistance of the [employer] medical billing assistant. The patient received no tachycardia treatments. The ventricular tachycardia treatment zone is set to be 4 rates of 170 bpm and higher. The VT monitoring zone is for greater than 150. It is theoretically possible that the patient could have had slow VT that was not detected by the device and therefore the monitoring zone parameter has been reduced to 140 bpm. Otherwise, underlying rhythm is sinus bradycardia in the 50s. The patient is chronically ventricular paced. The patient does not suggest a recent history of worsening angina, and has no angina at present. Initial EKG suggested possible anterior ischemia however this is in the setting of a right bundle branch block with very wide QRS complex and the sensitivity of such as tracing is limited due to the underlying conduction system issues. His high-sensitivity troponin has increased to 516 PG per mL thus far which is not unexpected given his presentation and overall, I am not confident that his presentation is suggestive of an underlying arrhythmia event or an acute coronary syndrome. With stable hemodynamics, lack of current angina, minimal troponin elevation, and findings of acute kidney injury with creatinine of 2.22 mg per deciliter today, recommend ongoing observation. I do not think systemic anticoagulation with unfractioned heparin is indicated for an acute coronary thrombosis at present. Question if his event was a primary respiratory issue with sore chest from his recent fall in the setting of chronic systolic heart failure. His BNP levels are high, but this is similar to previous chronic findings as an outpatient. I question also of his pulmonary hypertension is chronic and related to left heart failure as it is not significantly changed compared to February, on echocardiogram. Small bilateral pleural effusions noted relatively stable since the removal of his right pleural catheter last month. Rather than giving him fluids or diuretics, would hold off on both at present and monitor his kidney function. Continue chronic outpatient treatment with aspirin, clopidogrel, ezetimibe, metoprolol. Entresto and eplerenone is on hold due to acute kidney injury. Confirmed that his outpatient dose of amiodarone is currently 200 mg p.o. 1 time per day. This is on hold at present due to elevated AST, ALT levels, likely due to transient hypoperfusion. Device interrogation findings were discussed with electrophysiology. Will plan his paced QRS complexes on his EKG were not suggestive of ideal lead position, the paced QRS complex or certainly appears more narrow than his [place] QRS complex and at present we will continue his current pacemaker settings. I spent a total of 75 minutes on the date of service in preparation, delivery, and documentation of the care provided to this patient, excluding any time spent in the performance of separately billed services. Case discussed with Dr Pearson of critical care medicine for the purpose of coordination of care. History of Present Illness Attending Physician: Ninoska Vines MD History of Present Illness Mr Morgan is a 69 year old male seen in cardiology consultation per the request of Dr Salguero for the evaluation of cardiopulmonary arrest. Patient had been traveling in [place] in February, where he was admitted with a syncopal event in the setting of COVID illness. He was treated with azithromycin. He was observed to have nonsustained ventricular tachycardia on telemetry and was placed on IV and then oral amiodarone. A 14-day Zio patch monitor worn in September, revealed frequent (929) episodes of nonsustained ventricular tachycardia and frequent PVCs, 6.9% PVC burden. In the setting of an unexplained syncopal event, left ventricular ejection fraction of 35-39% (02/29/24) and history of nonsustained ventricular tachycardia the patient underwent implantation of an [employer] biventricular AICD on 03/15/2024. Patient seen and examined in ICU room 107. His spouse ,Noelle, was at the [facility] and witnessed the recent events so she was able to provide helpful input. Morning patient describes a longstanding history of difficulty ambulating over the last few months with low back pain and pain in his legs. Few nights ago in the evening of 08/02/2024 he was in his normal state of health in his kitchen carrying a cup and was witnessed to have what appeared to be a mechanical fall impacting on his face and anterior chest. His chest was sore yesterday and he developed progressive ecchymosis around his nose and eyes. He had a routine follow-up appointment with regards to his back pain with Dr. Salmon of spine surgery which he attended yesterday and had to utilize a wheelchair to get to the appointment due to difficulty walking related to his leg and back pain. Last evening he got into bed with his and shortly thereafter she witnessed that he stopped breathing and was unresponsive. She called for help from their 39-year-old son who lives in their home and they called EMS. The son moved the patient to the floor and started CPR and EMS arrived within 10 minutes of the initial phone call. An AED advised no shock and the patient spontaneously regained consciousness with CPR (no ACLS medications administered). At present, patient is awake and oriented. He endorses pain on deep inspiration consistent with rib fractures from his chest compressions that were observed on the CT of the chest performed on admission, but certainly does not have any symptoms suggestive of angina. He denies having had any syncopal episodes since his AICD had been implanted. His activity tolerance is limited by chronic back pain more than shortness of breath. As noted below he has a history of having had a indwelling pleural catheter due to a chronic right pleural effusion and this had been removed in June, having had minimal recent drainage leading up to that appointment. Cardiac History: 1. Atherosclerotic coronary disease status post non ST-segment elevation myocardial infarction in 1996 with subsequent coronary intervention with angioplasty of a circumflex marginal. 2. Ischemic cardiomyopathy with improved LV function after intervention 03/07/20 EF 40- 45% 3. Dyslipidemia with elevated triglycerides, prior poor tolerance of atorvastatin and rosuvastatin 4. Hypertension. 5. Chronic tobacco use, now in cessation. 6. Crescendo angina status post acute coronary intervention thrombotic proximal LAD stenosis February 16, 2020 7. Staged right coronary intervention March 07, 2020 drug-eluting stent to proximal and mid right coronary artery 8. Single run nonsustained ventricular tachycardia 5 beats during hospitalization January 2020 with transient use of life vest subsequently discontinued 9. COVID pneumonia 10. Left MCA stroke May 2023 due to severe left internal carotid stenosis. S/P left CEA in Jun 2023 11. Recurrent pleural effusion, right with indwelling PleurX catheter, removed 07/03/24, Thoracic surgery [facility] [place], Dr Echevarria 12. [employer], biventricular pacemaker AICD 03/15/2024, Dr Oglesby, [facility] Allergies Allergy/AdvReac Type Severity Reaction Status Date / Time spironolactone AdvReac Unknown Verified 03/01/24 09:12 Home Medications Medication Instructions Recorded Confirmed Type aspirin 81 mg tablet,delayed 81 mg PO QAM #30 tabs 02/17/20 08/04/24 Rx release ezetimibe 10 mg tablet (Zetia) 10 mg PO QAM #30 tabs 02/17/20 08/04/24 Rx nitroglycerin 0.4 mg sublingual 0.4 mg sublingual PRN PRN chest 02/17/20 08/04/24 Rx tablet (Nitrostat) pain #30 tabs allopurinol 300 mg tablet 300 mg PO HS 01/02/21 08/04/24 History vitamin B complex 1 tab PO DAILY 01/02/21 08/04/24 History albuterol sulfate 90 mcg/actuation 2 puff inhalation DIRECTED PRN 06/15/23 08/04/24 History aerosol inhaler Shortness Of Breath Or Wheezing furosemide 40 mg tablet (Lasix) 40 mg PO DAILY 06/15/23 08/04/24 History vitamins A,C,M-cohk-kuhfcg 4,296 1 cap PO QAM 06/15/23 08/04/24 History mcg-226 mg-90 mg capsule (PreserVision AREDS) clopidogrel 75 mg tablet 75 mg PO QAM #30 tabs 06/19/23 08/04/24 Rx metoprolol succinate 25 mg 25 mg PO DAILY@1800 #30 tabs 06/19/23 08/04/24 Rx tablet,extended release 24 hr metoprolol succinate 50 mg 50 mg PO QAM #30 tabs 06/19/23 08/04/24 Rx tablet,extended release 24 hr amiodarone 200 mg tablet 200 mg PO BID 03/01/24 08/04/24 History eplerenone 25 mg tablet 25 mg PO QAM 03/01/24 08/04/24 History rosuvastatin 10 mg tablet 10 mg PO DAILY 03/01/24 08/04/24 History sacubitril 97 mg-valsartan 103 mg 1 tab PO BID 03/01/24 08/04/24 History tablet (Entresto) doxycycline hyclate 100 mg capsule 100 mg PO AMHS 08/04/24 08/04/24 History fluticasone fur. 100 mcg-umeclid 1 ea inhalation QAM 08/04/24 08/04/24 History 62.5 mcg-vilant 25 mcg inhalat.powder (Trelegy Ellipta) gabapentin 300 mg capsule 300 mg PO AMHS 08/04/24 08/04/24 History Patient History Medical History Mouth cancer Neuropathic foot ulcer Nonsustained ventricular tachycardia History of tobacco abuse NSTEMI (non-ST elevated myocardial infarction) Total of 4. 1997 Circumflex, 02/16/2020 Proximal LAD, 03/07/2020 Proximal and Mid RCA NSVT (nonsustained ventricular tachycardia) Ischemic cardiomyopathy Surgical History History of colonoscopy with polypectomy multiple - prior villous adenoma in 2007 History of oral surgery excision of right mouth floor lesion, right submandibular gland, suprahyoid lymphadenectomy - 2016 History of cataract extraction History of appendectomy Stented coronary artery H/O heart artery stent Family History Father Heart disease Prostate cancer Brother Heart disease Social History Smoking Status: Unknown if ever smoked Second Hand Exposure: No; Do You Dip or Chew Tobacco: No; Hx Alcohol Use: Yes Alcohol type: beer Hx Substance Use: No Preferred Language: Guamanian Communication Ability: Effective Glove Turner Required: No Beliefs That Will Affect Care: None marital status: Current Living Situation: Family Current Living Situation Comment: and son Feels Safe at Home: Yes Safety Concerns: Feels Safe At This Time Assistive Devices: None Review of Systems Review of Systems: All systems reviewed & are unremarkable except as noted in HPI & below Physical Exam Physical Exam: Temp Pulse Resp BP Pulse Ox O2 Del Method O2 Flow Rate 36.6 C 60 23 140/89 90 Oxymask 4 08/04/24 09:00 08/04/24 11:00 08/04/24 11:00 08/04/24 11:01 08/04/24 11:00 08/04/24 11:00 08/04/24 11:00 FiO2 30 08/04/24 03:12 General: no acute distress and stated age Eyes: Ecchymosis noted around his eyes and along the nose Neck: normal jugular venous pulse, no hepatojugular reflux Chest: normal shape and normal respiratory effort -Left infraclavicular AICD pocket clean dry and intact, no erythema Lungs: clear to auscultation and percussion Cardiac Exam: - regular heart sounds, no murmurs, rubs, or gallops, no jugular venous distention Abdomen: abdomen soft, non-tender, no abnormal masses and no hepatosplenomegaly Musculoskeletal: no gait disturbance, no weakness Extremities: Trace edema, suggestion of mild chronic venous stasis changes Neuro:awake, conversant, follows commands, no focal motor deficits Psych: appropriate affect and insight. Results & Data Vital Signs (Past 12 Hours) Vital Signs Temp Pulse Pulse Resp BP BP Pulse Ox 08/04/24 10:06 60 18 95 08/04/24 10:00 152/96 H 08/04/24 09:48 61 14 94 08/04/24 09:09 62 18 95 08/04/24 09:05 155/93 H 08/04/24 09:05 155/93 H 08/04/24 09:00 145/113 H 08/04/24 08:48 60 18 96 08/04/24 08:15 60 17 86 L 08/04/24 08:00 58 L 08/04/24 08:00 08/04/24 08:00 142/91 H 08/04/24 08:00 142/91 H 08/04/24 08:00 36.6 C 08/04/24 07:57 61 10 L 94 08/04/24 07:03 60 16 97 08/04/24 07:01 163/96 H 08/04/24 07:00 08/04/24 06:48 54 L 12 96 08/04/24 06:32 36.5 C 61 18 143/97 H 96 08/04/24 06:23 143/97 H 08/04/24 06:03 60 17 97 08/04/24 06:00 60 15 97 08/04/24 06:00 94 08/04/24 05:18 146/87 H 08/04/24 05:06 60 18 98 08/04/24 05:00 60 15 99 08/04/24 05:00 153/97 H 08/04/24 04:30 60 19 98 08/04/24 04:30 148/93 H 08/04/24 04:12 60 08/04/24 04:09 60 20 100 08/04/24 04:00 60 16 147/93 H 96 08/04/24 03:30 60 17 154/94 H 94 08/04/24 03:12 60 21 96 08/04/24 03:00 60 21 134/91 95 08/04/24 02:00 60 16 126/71 93 08/04/24 01:36 60 20 127/72 91 08/04/24 01:22 60 20 118/72 95 08/04/24 00:51 62 22 118/66 94 08/04/24 00:46 08/04/24 00:44 08/04/24 00:38 60 24 135/79 100 08/04/24 00:36 81 17 135/79 92 08/04/24 00:35 83 O2 Del Method O2 Del Method O2 Flow Rate O2 Flow Rate FiO2 08/04/24 10:06 08/04/24 10:00 08/04/24 09:48 08/04/24 09:09 08/04/24 09:05 08/04/24 09:05 08/04/24 09:00 08/04/24 08:48 08/04/24 08:15 08/04/24 08:00 08/04/24 08:00 Oxymask 4 08/04/24 08:00 08/04/24 08:00 08/04/24 08:00 08/04/24 07:57 08/04/24 07:03 08/04/24 07:01 08/04/24 07:00 Oxymask 4 08/04/24 06:48 08/04/24 06:32 Oxymask 4 08/04/24 06:23 08/04/24 06:03 08/04/24 06:00 08/04/24 06:00 Oxymask 4 08/04/24 05:18 08/04/24 05:06 08/04/24 05:00 08/04/24 05:00 08/04/24 04:30 08/04/24 04:30 08/04/24 04:12 08/04/24 04:09 08/04/24 04:00 Oxymask 10 08/04/24 03:30 CPAP 08/04/24 03:12 30 08/04/24 03:00 CPAP 08/04/24 02:00 Nasal Cannula 2 08/04/24 01:36 08/04/24 01:22 Nasal Cannula 2 08/04/24 00:51 Nasal Cannula 2 08/04/24 00:46 Nasal Cannula 2 08/04/24 00:44 Room Air 08/04/24 00:38 Room Air 08/04/24 00:36 Nasal Cannula 2 08/04/24 00:35 Laboratory Results Cardiac Enzymes 08/04/24 08/04/24 08/04/24 Range/Units 00:39 03:02 07:02 AST 727 H (13-39) U/L Troponin I High Sens 67.5 H* 420.7 H* D 516.5 H* D (0-20) pg/ml B-Natriuretic Peptide 3167 H (0-100) pg/ml 08/04/24 Range/Units 10:29 AST 911 H (13-39) U/L Troponin I High Sens (0-20) pg/ml B-Natriuretic Peptide (0-100) pg/ml Coagulation 08/04/24 08/04/24 08/04/24 Range/Units 00:39 01:03 07:02 PT Cancelled 16.8 H APTT Cancelled 28 B-Natriuretic Peptide 3167 H (0-100) pg/ml 08/04/24 Range/Units 10:29 PT 15.9 H APTT B-Natriuretic Peptide (0-100) pg/ml CBC 08/04/24 08/04/24 Range/Units 00:39 07:02 WBC 14.75 H 14.82 H (4.8-10.8) K/ul RBC 4.83 4.31 L (4.70-6.10) M/uL Hgb 15.1 13.5 L (14.0-18.0) g/dl Hct 46.8 40.0 L (42.0-52.0) % Plt Count 147 126 L (130-400) K/uL Neut # (Auto) 10.49 H 11.71 H (1.40-6.50) K/uL Lymph # (Auto) 2.08 1.11 L (1.20-3.40) K/uL Davidson # (Auto) 1.61 H 1.77 H (0.11-0.59) K/uL Eos # (Auto) 0.01 0.00 (0.00-0.50) K/uL Baso # (Auto) 0.06 0.07 (0.00-0.20) K/uL Comprehensive Metabolic Panel 08/04/24 08/04/24 08/04/24 Range/Units 00:39 07:02 10:29 Sodium 128 L 128 L (136-145) mmol/L Potassium 5.4 H 5.1 (3.5-5.1) mmol/L Chloride 89 L 92 L (98-107) mmol/L Carbon Dioxide 24 27 (21-32) mmol/L BUN 30 H 35 H (6-23) mg/dl Creatinine 2.24 H 2.22 H (0.6-1.4) mg/dl Glucose 96 97 (70-99(Fasting)) mg/dl Calcium 9.9 9.6 (8.6-10.3) mg/dl Direct Bilirubin 1.1 H (0-0.2) mg/dl AST 727 H 911 H (13-39) U/L ALT 427 H 557 H (7-52) U/L Alkaline Phosphatase 331 H 278 H (34-104) U/L Total Protein 7.3 6.3 (6.0-8.3) gm/dl Albumin 4.1 3.6 (3.4-5.0) gm/dl Intake and Output 08/03/24 08/04/24 08/04/24 22:59 06:59 14:59 Intake Total 260 / 260 1000 / 1000 Output Total 300 / 300 Balance 260 / 260 700 / 700 Intake: IV 260 / 260 1000 / 1000 Acetaminophen 1,000 mg In 100 100 / 100 ml @ 400 mls/hr IV NOW STA Rx#: [id number] Calcium Gluconate 1,000 mg In 60 / 60 60 ml @ 240 mls/hr IV NOW STA Rx#:[id number] Piperacillin/Tazobactam 4.5 gm 100 / 100 In 100 ml @ 200 mls/hr IV NOW ONE Rx#:[id number] Sodium Chloride 0.9% 1,000 ml @ 1000 / 1000 50 mls/hr IV .Q20H [facility] Rx#: [id number] Output: Urine 300 / 300 Other: Weight 116 kg Weight Measurement Method Built in [facility] Diagnostic Findings Presenting EKG performed 08/04/2024 at 12:37 AM reveals what appears to be underlying sinus rhythm with first-degree AV block with right bundle branch block, wide QRS duration of 192 ms, age-indeterminate inferior infarct pattern, age-indeterminate lateral infarct pattern, ST segment depression noted in leads V2 V3. Compared to the previous tracing performed immediately after biventricular AICD in February, the AV sequential paced rhythm noted at that time has been replaced with [place] right bundle branch block. Repeat EKG performed this morning 08/04/2024 at 6:33 AM reveals AV sequential paced rhythm at 60 bpm with ventricular paced QRS complexes replacing the previous right bundle branch block. Echocardiogram performed this morning 08/04/2024 and interpreted independently: Technically limited study with poor acoustic windows at baseline and the patient's rib fractures make laying in the left lateral decubitus position difficult and augmenting his breathing difficult further complicating obtaining his images. Severe global left ventricular hypokinesis appears present with LVEF in the range of 20 to 25%. Mild tricuspid regurgitation noted with moderate pulm hypertension pulmonary systolic pressure estimated be 55 mmHg. -Compared to the images obtained at the time of the previous study dated 06/16/2023, the images were limited at the time but of better diagnostic qualities on the present images. The LVEF was graded to be 30-35% at that time. Pulmonary pressures in the 50s were noted at that time also.
[2024-08-04 11:17] LABS: Acetaminophen 4 ug/ml (10-30); Salicylate < 3.0 mg/dl (3.0-30)
[2024-08-04 11:20] LABS: INR 1.5 (0.9-1.1); Prothrombin Time 15.9 Seconds (9.0-12.0)
--- NOTE | 2024-08-04 11:21 | Ultrasound Report ---
US carotid doppler BI CLINICAL HISTORY: 69 years-old Male with recurrent falls, prior mca. Follow-up study in a patient wi th prior stroke COMPARISON: None TECHNIQUE: Multiple real time sonographic images of the carotid bifurcations were obtained assessing painter scale, color Doppler and spectral wave form appearance FINDINGS: RIGHT CAROTID: The peak systolic velocity measured within the right ICA is 47 cm/sec. The end diast olic velocity measured 14 cm/sec. The ICA to CCA ratio measured 1.0 which correlates with a stenosis of 0-50%. Moderate atherosclerosis. LEFT CAROTID: The peak systolic velocity measurements in the left ICA is 73 cm/sec. The end diastol ic velocity measured 13 cm/sec. The ICA to CCA ratio measured 1.0 which correlates with a stenosis of 1.4%. Mild atherosclerosis. There is normal antegrade vertebral flow bilaterally. IMPRESSION: 1. Atherosclerosis without hemodynamically significant stenosis. 2. Normal antegrade vertebral flow bilaterally. ACT 112: Negative or not required by law. The above report was generated using voice recognition software. It may contain grammatical, syntax o r spelling errors. Electronically signed by: Mina Vu M.D. 08/04/2024 11:14 AM
[2024-08-04 11:32] LABS: Albumin Level 3.6 gm/dl (3.4-5.0); Bilirubin Direct 1.1 mg/dl (0-0.2); Bilirubin,Total 2.1 mg/dl (0.2-1.0); Total Protein 6.3 gm/dl (6.0-8.3)
[2024-08-04 11:49] LABS: Amphetamines+Metham, Urine Neg (Neg); Barbiturates, Urine Neg (Neg); Benzodiazepine, Urine Neg (Neg); Cocaine, Urine Neg (Neg); Fentanyl, Urine Neg (Neg); MDMA (Ecstacy), Urine Pos (Neg); Marijuana, Urine Neg (Neg); Methadone, Urine Neg (Neg); Opiate, Urine Neg (Neg); Phencyclidine, Urine Neg (Neg)
[2024-08-04 11:54] LABS: Appearance Urine Cloudy (Clear); Bacteria Urine Automated None Seen (None Seen); Bilirubin Urine Negative (Negative); Blood Urine 1+ (Negative); Color Urine Dark Yellow; Glucose Urine UA Negative (Negative); Ketones Urine Negative (Negative); Leukocyte Esterase Urine Negative (Negative); Nitrite Urine Negative (Negative); Protein Urine 3+ (Negative); Specific Gravity Urine 1.018 (1.000-1.030); Urobilinogen Urine Negative (Negative); pH Urine 5.5 (4.5-7.5)
[2024-08-04 12:10] LABS: Granular Casts Urine Present /lpf (None Prsent); Sperm Urine Present (None Prsent)
[2024-08-04 12:11] LABS: Waxy Casts Urine Present /lpf (None Prsent)
[2024-08-04 12:26] LABS: Hep B Surface Ag with confirm Negative (Negative)
[2024-08-04 12:31] LABS: Hep C Ab Rflx HepCQuant RNA Negative (Negative)
[2024-08-04] MEDS: HYDROmorphone INJ 0.5 MG/0.5 ML SYR IV PRN (13:00)
--- NOTE | 2024-08-04 13:46 | Urology Consultation ---
<Statement entered by Joel Arana MD - 08/04/24 15:38> Patient will need further characterization of his ureter with CT urogram as an outpatient. Urology will coordinate this. Will sign off for now. Please call with any questions or concerns. Date of Consultation August 04, 2024 Assessment & Plan (1) Respiratory arrest: (2) Acute kidney injury: Plan 69-year-old male with multiple comorbidities who is admitted to the ICU after cardiopulmonary arrest at home Urology asked to evaluate patient due to left ureteral findings on CT imaging. CT imaging on arrival demonstrated extensive fat stranding seen around left proximal and mid ureter. Possibility of infective/inflammatory etiology or traumatic pathology can not be ruled out. He is afebrile w/stable vitals at present. On 4L oxy mask. Labs reviewed-WBC 14.82, hemoglobin 13.5, creatinine 2.22. Urinalysis with 1+ blood, 1120 WBC, 35 RBC, negative bacteria, negative nitrite Urine and blood cultures are pending. He is on Zosyn. No acute intervention warranted. Monitor ability to void. Recommend checking bladder scan/PVRs to ensure he is emptying. Continue antibiotics and follow cultures. Will plan for outpatient follow-up with our service with plans for reassessment with CT urogram at that time-patient was agreeable. Urology will sign off. Please call with any questions/concerns or changes in patient status. History of Present Illness Attending Physician: Ninoska Vines MD History of Present Illness 69-year-old male with multiple comorbidities who is admitted to the ICU after cardiopulmonary arrest at home Urology asked to evaluate patient due to left ureteral findings on CT imaging. CT imaging on arrival demonstrated extensive fat stranding seen around left proximal and mid ureter. Possibility of infective/inflammatory etiology or traumatic pathology can not be ruled out. Patient was seen at bedside today. He is awake and resting in bed on arrival. No acute distress. at bedside. Reports rib pain. Voiding spontaneously in urinal. Urine is clear yellow. Patient denies prior history. Reports he follows with his PCP for PSA monitoring. Allergies Allergy/AdvReac Type Severity Reaction Status Date / Time spironolactone AdvReac Unknown Verified 03/01/24 09:12 Home Medications Medication Instructions Recorded Confirmed Type aspirin 81 mg tablet,delayed 81 mg PO QAM #30 tabs 02/17/20 08/04/24 Rx release ezetimibe 10 mg tablet (Zetia) 10 mg PO QAM #30 tabs 02/17/20 08/04/24 Rx nitroglycerin 0.4 mg sublingual 0.4 mg sublingual PRN PRN chest 02/17/20 08/04/24 Rx tablet (Nitrostat) pain #30 tabs allopurinol 300 mg tablet 300 mg PO HS 01/02/21 08/04/24 History vitamin B complex 1 tab PO DAILY 01/02/21 08/04/24 History albuterol sulfate 90 mcg/actuation 2 puff inhalation DIRECTED PRN 06/15/23 08/04/24 History aerosol inhaler Shortness Of Breath Or Wheezing furosemide 40 mg tablet (Lasix) 40 mg PO DAILY 06/15/23 08/04/24 History vitamins A,C,S-thkz-uoiqkm 4,296 1 cap PO QAM 06/15/23 08/04/24 History mcg-226 mg-90 mg capsule (PreserVision AREDS) clopidogrel 75 mg tablet 75 mg PO QAM #30 tabs 06/19/23 08/04/24 Rx metoprolol succinate 25 mg 25 mg PO DAILY@1800 #30 tabs 06/19/23 08/04/24 Rx tablet,extended release 24 hr metoprolol succinate 50 mg 50 mg PO QAM #30 tabs 06/19/23 08/04/24 Rx tablet,extended release 24 hr amiodarone 200 mg tablet 200 mg PO BID 03/01/24 08/04/24 History eplerenone 25 mg tablet 25 mg PO QAM 03/01/24 08/04/24 History rosuvastatin 10 mg tablet 10 mg PO DAILY 03/01/24 08/04/24 History sacubitril 97 mg-valsartan 103 mg 1 tab PO BID 03/01/24 08/04/24 History tablet (Entresto) doxycycline hyclate 100 mg capsule 100 mg PO AMHS 08/04/24 08/04/24 History fluticasone fur. 100 mcg-umeclid 1 ea inhalation QAM 08/04/24 08/04/24 History 62.5 mcg-vilant 25 mcg inhalat.powder (Trelegy Ellipta) gabapentin 300 mg capsule 300 mg PO AMHS 08/04/24 08/04/24 History Patient History Medical History Mouth cancer Neuropathic foot ulcer Nonsustained ventricular tachycardia History of tobacco abuse NSTEMI (non-ST elevated myocardial infarction) Total of 4. 1997 Circumflex, 02/16/2020 Proximal LAD, 03/07/2020 Proximal and Mid RCA NSVT (nonsustained ventricular tachycardia) Ischemic cardiomyopathy Surgical History History of colonoscopy with polypectomy multiple - prior villous adenoma in 2007 History of oral surgery excision of right mouth floor lesion, right submandibular gland, suprahyoid lymphadenectomy - 2016 History of cataract extraction History of appendectomy Stented coronary artery H/O heart artery stent Family History Father Heart disease Prostate cancer Brother Heart disease Social History Smoking Status: Unknown if ever smoked Second Hand Exposure: No; Do You Dip or Chew Tobacco: No; Hx Alcohol Use: Yes Alcohol type: beer Hx Substance Use: No Preferred Language: [place] Communication Ability: Effective [employer] School Tutor Required: No Beliefs That Will Affect Care: None marital status: Current Living Situation: Family Current Living Situation Comment: and son Feels Safe at Home: Yes Assistive Devices: None Review of Systems Review of Systems: All systems reviewed & are unremarkable except as noted in HPI & below Physical Exam Constitutional: no acute distress Eyes: Bruising noted to the left eye Respiratory: no respiratory distress and no labored breathing Musculoskeletal: Head/Neck/Chest: normocephalic Skin: No visible rashes or lesions to exposed skin areas Neurologic: awake Psychiatric: A+Ox3, euthymic affect Genitourinary: Urine is clear yellow in urinal Results & Data Vital Signs (Past 12 Hours) Vital Signs Temp Pulse Pulse Resp BP BP Pulse Ox 08/04/24 12:19 36.6 C 08/04/24 11:01 140/89 08/04/24 11:00 60 23 90 08/04/24 10:06 60 18 95 08/04/24 10:00 152/96 H 08/04/24 09:48 61 14 94 08/04/24 09:09 62 18 95 08/04/24 09:05 155/93 H 08/04/24 09:05 155/93 H 08/04/24 09:00 36.6 C 08/04/24 09:00 145/113 H 08/04/24 08:48 60 18 96 08/04/24 08:15 60 17 86 L 08/04/24 08:00 08/04/24 08:00 58 L 08/04/24 08:00 08/04/24 08:00 142/91 H 08/04/24 08:00 142/91 H 08/04/24 08:00 36.6 C 08/04/24 07:57 61 10 L 94 08/04/24 07:03 60 16 97 08/04/24 07:01 163/96 H 08/04/24 07:00 08/04/24 06:48 54 L 12 96 08/04/24 06:32 36.5 C 61 18 143/97 H 96 08/04/24 06:23 143/97 H 08/04/24 06:03 60 17 97 08/04/24 06:00 60 15 97 08/04/24 06:00 94 08/04/24 05:18 146/87 H 08/04/24 05:06 60 18 98 08/04/24 05:00 60 15 99 08/04/24 05:00 153/97 H 08/04/24 04:30 60 19 98 08/04/24 04:30 148/93 H 08/04/24 04:12 60 08/04/24 04:09 60 20 100 08/04/24 04:00 60 16 147/93 H 96 08/04/24 03:30 60 17 154/94 H 94 08/04/24 03:12 60 21 96 08/04/24 03:00 60 21 134/91 95 08/04/24 02:00 60 16 126/71 93 O2 Del Method O2 Del Method O2 Flow Rate O2 Flow Rate FiO2 08/04/24 12:19 08/04/24 11:01 08/04/24 11:00 Oxymask 4 08/04/24 10:06 08/04/24 10:00 08/04/24 09:48 08/04/24 09:09 08/04/24 09:05 08/04/24 09:05 08/04/24 09:00 08/04/24 09:00 08/04/24 08:48 08/04/24 08:15 08/04/24 08:00 Oxymask 4 08/04/24 08:00 08/04/24 08:00 Oxymask 4 08/04/24 08:00 08/04/24 08:00 08/04/24 08:00 08/04/24 07:57 08/04/24 07:03 08/04/24 07:01 08/04/24 07:00 Oxymask 4 08/04/24 06:48 08/04/24 06:32 Oxymask 4 08/04/24 06:23 08/04/24 06:03 08/04/24 06:00 08/04/24 06:00 Oxymask 4 08/04/24 05:18 08/04/24 05:06 08/04/24 05:00 08/04/24 05:00 08/04/24 04:30 08/04/24 04:30 08/04/24 04:12 08/04/24 04:09 08/04/24 04:00 Oxymask 10 08/04/24 03:30 CPAP 08/04/24 03:12 30 08/04/24 03:00 CPAP 08/04/24 02:00 Nasal Cannula 2 PG Care Time/CCT Total # of Minutes Spent Total Time Spent with Patient: Total time spent is greater than 50% in coordination of care (as documented) at patient's floor/unit and/or counseling patient: Coding Level of Care Code 34809 INT INP/OBS CARE 2/55MIN Diagnoses Respiratory arrest R09.2 Acute kidney injury N17.9
--- NOTE | 2024-08-04 14:47 | Hospitalist Progress Note ---
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 Patient tonight when he was going to sleep suddenly stopped breathing. His son started CPR and EMS were called. Seems when EMS arrived patient was in agonal breathing and seems pulses were present. CPR was continued for 5 minutes and no medication administered. AED pads were applied but no shock advised. As per ER paramedics blood pressure was 155 /100, heart rate 74 respiratory rate 24 on 15 lt. Blood sugar 101. In the ER patient was alert and awake and oriented. Patient has a bruise on his left side of the face. Patient lives with his and son. Daughter is in the room. Patient says that he fell couple of days ago. States he slipped and fell down. No loss of consciousness. Since the fall he was using walker. He has chest pain from his rib fractures. Currently states breathing is fine. He is on oxygen mask. States recently was started on doxycycline for cough and congestion. Denies any fevers. No headache. No dizziness. Vision is okay. No runny nose. Has some dry throat. Appetite has been down since last 1 week. No nausea. No abdominal pain. Somewhat constipated. Micturating okay. Hemodynamics okay currently. Cardiorespiratory arrest On the night of admission when the patient was going to sleep suddenly stopped breathing and required CPR. CPR was started by the son and continued by the EMS for about 5 minutes- pulses were present as per the record No meds or shocks were given He was noted to be alert and awake and oriented in the emergency room Admitted to ICU for continued care Hx of CAD s/p LALIT to RCA in 2019,hx of VT with syncope s/p cardiac defibrillator EKG shows a fib Intial troponin 67 and repeat 420 Has chest pain attributes to rib fractures, likely secondary to CPR and could be from fall Pacemaker interrogation ECHO showed limited study, LV systolic function is severely reduced with EF of 20 to 25%, severe global hypokinesis of the left ventricle, the RV chamber size and systolic function are grossly normal, aortic valve sclerosis mild without significant aortic valvular stenosis, there is mild tricuspid regurgitation and moderate pulmonary hypertension is present, compared to the images obtained at time of previous echo dated 06/16/2023 images were limited but more of better diagnostic quality than the present images the LVEF was graded to be 30 to 35% at the time On Aspirin,Plavix,metoprolol and amiodarone Appreciate cardiology input and recommendations Possible pneumonia cxr has right sided haziness patchy ill defined ground glass opacity right upper lobe , and basal subsegmental collapse of both lower lobes. b/l mild pleural effusions on ct scan recently was started on po doxycyline-will be continued er gave zosyn- will be continued Frontal and maxillary sinusitis Started on intravenous Zosyn and doxycycline has been added SP with Hyponatremia and Hyperkalemia Creatinine went up to 2.0 with a baseline of 1.2 Holding lasix, entresto and eplernone Gentle fluids ns@50ml/hr Appreciate nephrology input and recommendation Possible shock liver Elevated LFT CT scan liver seems ok and the ultrasound is showing fatty liver and no evidence of misael hepatis thrombosis Appreciate GI input and recommendation Will monitor LFTs, doubt any acute hepatitis Advised to quit drinking Hypocalcemia Ionized mauro 1.1 1 amp of iv calcium gluconate Left proximal and mid ureter lesion infective/inflammatory or traumatic pathology per ct scan urology consult- appreciate input and recommendation b/l femoral head avascular necrosis stable per ct scan needs followup fall pt/ot when stable H/O of CVA in 06/2023 s/p tnk on aspirin and plavix and zetia and statin Hx of right pleural effusion s/p Pleurx cath in december 2023 and removd in jun 2024 workup for malignancy was unremarkable per records. Chronic combined sytolic and diastolic chf ef 35-39% on echo done on 11/30/23 holding diuretcis monitor for volume overload PVD on aspirina and plavix and statin Chronic back pain following with orthospine Gout on allopurinol Dvt px scds Ultrasound of the legs have been negative for any DVTs Disposition ICU Full code Admission and Anticipated Discharge Date Admission Date: August 04, 2024 Subjective 08/04/2024 The patient was seen and examined in ICU in presence of the family members He was admitted following cardiorespiratory arrest at home which required CPR Feels generally weak and lethargic with minimal discomfort in the abdomen and also in the chest Denies any other significant symptoms Review of Systems Review of Systems: All systems reviewed and are unremarkable except as noted below Physical Exam Physical Exam: Lying in bed without any acute distress Constitutional: well developed, well nourished and + ill appearing Eyes: PERRL, conjunctivae normal, anicteric sclerae ENMT: external ear and nose normal, oropharynx normal Neck: trachea midline, no thyromegaly Respiratory: no respiratory distress Auscultation: + diminished lung sounds Cardiovascular: Rate/Rhythm: regular rate and regular rhythm; not tachycardic Heart Sounds: normal S1 and normal S2; no murmur Extremities: no edema Gastrointestinal (Abdomen): Inspection/Auscultation: + abdomen distended and normal bowel sounds Percussion/Palpation: abdomen soft; abdomen nontender Musculoskeletal: No acute arthritis involving any of the joint Neurologic: normal touch/pain/proprioception and moves all extremities; no focal motor deficits Lymphatic: no cervical or axillary lymphadenopathy Results & Data Results & Data Vital Signs (Past 12 Hours) Vital Signs Temp Pulse Pulse Resp BP BP Pulse Ox 08/04/24 12:19 36.6 C 08/04/24 11:01 140/89 08/04/24 11:00 60 23 90 08/04/24 10:06 60 18 95 08/04/24 10:00 152/96 H 08/04/24 09:48 61 14 94 08/04/24 09:09 62 18 95 08/04/24 09:05 155/93 H 08/04/24 09:05 155/93 H 08/04/24 09:00 36.6 C 08/04/24 09:00 145/113 H 08/04/24 08:48 60 18 96 08/04/24 08:15 60 17 86 L 08/04/24 08:00 08/04/24 08:00 58 L 08/04/24 08:00 08/04/24 08:00 142/91 H 08/04/24 08:00 142/91 H 08/04/24 08:00 36.6 C 08/04/24 07:57 61 10 L 94 08/04/24 07:03 60 16 97 08/04/24 07:01 163/96 H 01/17/25 07:00 08/04/24 06:48 54 L 12 96 08/04/24 06:32 36.5 C 61 18 143/97 H 96 08/04/24 06:23 143/97 H 08/04/24 06:03 60 17 97 08/04/24 06:00 60 15 97 08/04/24 06:00 94 08/04/24 05:18 146/87 H 08/04/24 05:06 60 18 98 08/04/24 05:00 60 15 99 08/04/24 05:00 153/97 H 08/04/24 04:30 60 19 98 08/04/24 04:30 148/93 H 08/04/24 04:12 60 08/04/24 04:09 60 20 100 08/04/24 04:00 60 16 147/93 H 96 08/04/24 03:30 60 17 154/94 H 94 08/04/24 03:12 60 21 96 08/04/24 03:00 60 21 134/91 95 O2 Del Method O2 Del Method O2 Flow Rate O2 Flow Rate FiO2 08/04/24 12:19 08/04/24 11:01 08/04/24 11:00 Oxymask 4 08/04/24 10:06 08/04/24 10:00 08/04/24 09:48 08/04/24 09:09 08/04/24 09:05 08/04/24 09:05 08/04/24 09:00 08/04/24 09:00 08/04/24 08:48 08/04/24 08:15 08/04/24 08:00 Oxymask 4 08/04/24 08:00 08/04/24 08:00 Oxymask 4 08/04/24 08:00 08/04/24 08:00 08/04/24 08:00 08/04/24 07:57 08/04/24 07:03 08/04/24 07:01 08/04/24 07:00 Oxymask 4 08/04/24 06:48 08/04/24 06:32 Oxymask 4 08/04/24 06:23 08/04/24 06:03 08/04/24 06:00 08/04/24 06:00 Oxymask 4 08/04/24 05:18 08/04/24 05:06 08/04/24 05:00 08/04/24 05:00 08/04/24 04:30 08/04/24 04:30 08/04/24 04:12 08/04/24 04:09 08/04/24 04:00 Oxymask 10 08/04/24 03:30 CPAP 08/04/24 03:12 30 08/04/24 03:00 CPAP Laboratory Results Short CBC 08/04/24 08/04/24 Range/Units 00:39 07:02 WBC 14.75 H 14.82 H (4.8-10.8) K/ul Hgb 15.1 13.5 L (14.0-18.0) g/dl Hct 46.8 40.0 L (42.0-52.0) % Plt Count 147 126 L (130-400) K/uL BMP 08/04/24 08/04/24 00:39 07:02 Sodium 128 L 128 L Potassium 5.4 H 5.1 Chloride 89 L 92 L Carbon Dioxide 24 27 BUN 30 H 35 H Creatinine 2.24 H 2.22 H Glucose 96 97 Calcium 9.9 9.6 Cardiac Enzymes 08/04/24 Range/Units 10:29 Total Creatine Kinase 252 H (30-223) U/L Liver Function 08/04/24 08/04/24 Range/Units 00:39 10:29 Total Bilirubin 2.0 H 2.1 H (0.2-1.0) mg/dl Direct Bilirubin 1.1 H (0-0.2) mg/dl AST 727 H 911 H (13-39) U/L ALT 427 H 557 H (7-52) U/L Alkaline Phosphatase 331 H 278 H (34-104) U/L Albumin 4.1 3.6 (3.4-5.0) gm/dl Urine 08/04/24 Range/Units 11:04 Urine Color Dark Yellow Urine Appearance Cloudy A (Clear) Urine pH 5.5 (4.5-7.5) Ur Specific [place] 1.018 (1.000-1.030) Urine Protein 3+ H (Negative) Urine Glucose (UA) Negative (Negative) Medications Administered Current Inpatient Medications Albuterol (Albuterol Hfa 8 Gm Inhaler) 2 puffs INH Q6R PRN PRN Reason: Shortness Of Breath Or Wheezin Stop: 09/03/24 06:51 Allopurinol (Allopurinol 100 Mg Tab) 100 mg PO HS [facility] Stop: 09/03/24 20:59 Aspirin (Aspirin 81 Mg Ectab) 81 mg PO QAM [facility] Stop: 09/03/24 08:59 Last Admin: 08/04/24 08:05 Dose: 81 mg Clopidogrel Bisulfate (Clopidogrel Bisulfate 75 Mg Tab) 75 mg PO QAM [facility] Stop: 09/03/24 08:59 Last Admin: 08/04/24 08:05 Dose: 75 mg Ezetimibe (Ezetimibe 10 Mg Tab) 10 mg PO QAM [facility] Stop: 09/03/24 08:59 Last Admin: 08/04/24 08:06 Dose: 10 mg Fluticasone Furoate (Fluticasone Furoate 100mcg 14 Puffs/Inhaler) 1 puffs INH DAILY [facility] Stop: 09/03/24 08:59 Last Admin: 08/04/24 08:06 Dose: 1 puffs Gabapentin (Gabapentin 300 Mg Cap) 300 mg PO BID [facility] Stop: 09/03/24 08:59 Last Admin: 08/04/24 08:06 Dose: 300 mg Heparin Sodium (Porcine) (Heparin Sod 5,000 Unit/0.5 Ml Vial) 5,000 units SQ Q12 [facility] Stop: 09/03/24 20:59 Hydromorphone HCl (Hydromorphone Inj 0.5 Mg/0.5 Ml Syr) 0.25 mg IV Q6H PRN PRN Reason: Severe Pain (Scale 7, 8, 9,10) Stop: 08/18/24 06:51 Last Admin: 08/04/24 13:00 Dose: 0.25 mg Piperacillin Sod/Tazobactam Sod (Zosyn) 4.5 gm in 100 mls @ 25 mls/hr IV Q8H [facility]; Protocol Stop: 08/09/24 07:59 Last Infusion: 08/04/24 12:18 Dose: Infused Pantoprazole Sodium (Protonix) 40 mg in 10 mls @ 5 mls/min IV DAILY [facility] Stop: 09/03/24 09:59 Last Admin: 08/04/24 10:59 Dose: 5 mls/min Magnesium Sulfate/Dextrose (Magnesium Sulfate / D5w) 1 gm in 100 mls @ 50 mls/hr IV Q2H [facility] Stop: 08/04/24 15:59 Last Admin: 08/04/24 12:41 Dose: 50 mls/hr Levalbuterol HCl (Levalbuterol 1.25 Mg/3 Ml Neb) 1.25 mg NEB Q4R PRN PRN Reason: Shortness Of Breath Or Wheezing Stop: 09/03/24 06:51 Metoprolol Succinate (Metoprolol Succ 50mg Ext Rel Tab) 50 mg PO QAM [facility] Stop: 09/03/24 08:59 Last Admin: 08/04/24 08:06 Dose: 50 mg Metoprolol Succinate (Metoprolol Succ 25mg Ext Rel Tab) 25 mg PO DAILY@1800 [facility] Stop: 09/03/24 17:59 Miscellaneous (Remove Lidoderm Patch) 1 each N/A ONE ONE Stop: 08/04/24 16:01 Multivitamins/Minerals (Cerovite Adv Formula Tab) 1 tab PO QAM [facility] Stop: 09/03/24 08:59 Last Admin: 08/04/24 08:06 Dose: 1 tab Nitroglycerin (Nitroglycerin Sl 0.4 Mg/Tab Tab) 0.4 mg SL Q5M PRN PRN Reason: Chest Pain Stop: 09/03/24 06:51 Polyethylene Glycol (Polyethylene (Miralax) 17 Gm Pack) 17 gm PO DAILY PRN PRN Reason: Constipation Stop: 09/03/24 06:51 Rosuvastatin Calcium (Rosuvastatin Calcium 10 Mg Tab) 10 mg PO DAILY [facility] Stop: 09/03/24 08:59 Last Admin: 08/04/24 08:06 Dose: 10 mg Umeclidinium/Vilanterol (Umeclidinium/Vilanterol 62.5/25mcg 7 Puffs/Inhaler) 1 puffs INH DAILY [facility] Stop: 09/03/24 08:59 Last Admin: 08/04/24 08:05 Dose: 1 puffs Vitamin B Complex (Vitamin B Complex Tab) 1 tab PO DAILY [facility] Stop: 09/03/24 08:59 Last Admin: 08/04/24 08:05 Dose: 1 tab
[2024-08-04] MEDS: METOPROLOL SUCC 25MG EXT REL TAB PO SCH (18:02)
[2024-08-04] MEDS: allopurinoL 100 MG TAB PO SCH (20:08)
[2024-08-04] MEDS: HEPARIN SOD 5,000 UNIT/0.5 ML VIAL SQ SCH (20:09)
[2024-08-04] MEDS: traMADol HCL 50 MG TABLET PO PRN (20:38)
[2024-08-04] MEDS ORDERED: allopurinoL 300 MG TAB PO SCH (21:00)
--- NOTE | 2024-08-04 21:44 | Electrocardiogram Report ---
Test Reason : Blood Pressure : */* mmHG Vent. Rate : 81 BPM Atrial Rate : * BPM P-R Int : * ms QRS Dur : 192 ms QT Int : 468 ms P-R-T Axes : * 246 67 degrees QTcB Int : 543 ms Atrial fibrillation Right bundle branch block Possible Lateral infarct , age undetermined Inferior infarct , age undetermined Abnormal ECG When compared with ECG of 01-Mar-2024 14:04, Ventricular paced complexes are no longer present Confirmed by Jalen Saini ([id number]) on 08/04/2024 9:44:09 PM Referred By: REFERRED SELF Confirmed By: Jalen Saini
--- NOTE | 2024-08-04 21:45 | Electrocardiogram Report ---
Test Reason : Blood Pressure : */* mmHG Vent. Rate : 60 BPM Atrial Rate : 60 BPM P-R Int : 82 ms QRS Dur : 114 ms QT Int : 452 ms P-R-T Axes : * 100 237 degrees QTcB Int : 452 ms AV dual-paced rhythm Abnormal ECG When compared with ECG of 04-Aug-2024 00:37, AV pacing has replaced Atrial fibrillation Confirmed by Jalen Saini ([id number]) on 08/04/2024 9:44:32 PM Referred By: REFERRED SELF Confirmed By: Jalen Saini
[2024-08-05 06:24] LABS: Basophils # (auto) 0.03 K/uL (0.00-0.20); Basophils % (auto) 0.2 %; Eosinophils # (auto) 0.01 K/uL (0.00-0.50); Eosinophils % (auto) 0.1 %; Hematocrit (blood only) 36.9 % (42.0-52.0); Hemoglobin 12.6 g/dl (14.0-18.0); Immature Granulocytes # (auto) 0.09 K/uL (0.01-0.20); Immature Granulocytes % (auto) 0.7 %; Lymphocytes # (auto) 0.63 K/uL (1.20-3.40); Lymphocytes % (auto) 4.9 %; Mean Corpuscular Hemoglobin 31.7 pg (25.0-34.0); Mean Corpuscular Hgb Conc 34.1 g/dL (32.0-36.0); Mean Corpuscular Volume 92.7 fL (80.0-100.0); Mean Platelet Volume 9.3 fL (9.4-12.4); Monocytes # (auto) 1.38 K/uL (0.11-0.59); Monocytes % (auto) 10.7 %; Neutrophils # (auto) 10.76 K/uL (1.40-6.50); Neutrophils % (auto) 83.4 %; Platelet Count 124 K/uL (130-400); RDW Coefficient of Variation 15.6 % (11.5-14.5); RDW Standard Deviation 52.7 fL (36.4-46.3); Red Blood Count 3.98 M/uL (4.70-6.10)
[2024-08-05 06:47] LABS: Albumin Level 3.2 gm/dl (3.4-5.0); Bilirubin,Total 1.9 mg/dl (0.2-1.0); Calcium 9.3 mg/dl (8.6-10.3); Phosphorus 4.8 mg/dl (2.5-4.9); Potassium 4.6 mmol/L (3.5-5.1); Total Protein 5.7 gm/dl (6.0-8.3)
--- NOTE | 2024-08-05 09:16 | Electrocardiogram Report ---
Test Reason : Blood Pressure : */* mmHG Vent. Rate : 60 BPM Atrial Rate : 60 BPM P-R Int : 136 ms QRS Dur : 120 ms QT Int : 462 ms P-R-T Axes : 73 56 233 degrees QTcB Int : 462 ms AV dual-paced rhythm Abnormal ECG When compared with ECG of 04-Aug-2024 06:33, No significant change was found Confirmed by Kaiser Gutierrez ([id number]) on 08/05/2024 9:15:53 AM Referred By: REFERRED SELF Confirmed By: Kaiser Gutierrez
--- NOTE | 2024-08-05 10:19 | Cardiology Progress Note ---
Date of Service August 05, 2024 Assessment & Plan (1) Respiratory arrest: (2) Acute on chronic heart failure with reduced ejection fraction and diastolic dysfunction: (3) Multiple fractures of ribs, left side, initial encounter for closed fracture: Plan 69 year old male who was admitted after cardiopulmonary arrest at home, CPR performed by family, EMS arrived and reported agonal breathing. AED applied, no shocks advised. He spontaneously regained consciousness with CPR (no ACLS medications administered). ICD interrogated with no shocks delivered. Was admitted to ICU, has been transferred to the floor. - possible primary respiratory arrest, CXR with possible pneumonia, no evidence of ACS, troponin elevation likely secondary to arrest, trending down on repeat - overall feeling well today on exam - labs with mild anemia, hyponatremia, SP - continue aspirin, plavix, metoprolol succinate, rosuvastatin, zetia - hold [employer] entresto and eplerenone due to SP, hold amiodarone due to transaminitis - antibiotics for pneumonia per primary - continue to monitor on telemetry Case discussed with supervising physician, further recommendations per Dr. Henderson. I spent a total of 25 minutes on the date of service in preparation, delivery, and documentation of the care provided to this patient excluding any time spent in the performance of separately billed services. This visit was a split-shared visit with the substantial portion of the decision making performed by the supervising site head/billing provider. Admission and Anticipated Discharge Date Admission Date: August 04, 2024 Supervising Physician Co-Signing Physician Notes I spent a total of 30 minutes on the date of service in preparation, delivery, and documentation of the care provided to this patient, excluding any time spent in the performance of separately billed services. I have personally performed a history and physical examination on the patient. I have reviewed the advance practitioner's documentation, and I agree with, and take responsibility for the plan of care. Subjective Patient seen today in cardiology follow up. Resting comfortably in bed. Has some diffuse chest soreness. Denies chest pain, shortness of breath, lightheadedness, edema. Review of Systems Review of Systems: CONSTITUTIONAL: No change in weight, No weakness, No fatigue and No fevers, No sweats or chills. PULMONARY: No cough, sputum, or hemoptysis, No wheezing, No shortness of breath and No recent change in breathing. CARDIOVASCULAR: No chest pain, No dyspnea on exertion, No edema, No palpitations and No syncope. GASTROINTESTINAL: No abdominal pain, No change in bowel habits, No significant heartburn, No nausea, No vomiting, No diarrhea, No constipation, No blood in stools or black tarry stools. No dysphagia. HEMATOLOGIC: No abnormal bleeding and No bruising. NEUROLOGICAL: Normal balance, No headaches and No weakness. Physical Exam Physical Exam: General: No acute distress. A+Ox3. HEENT: Normocephalic. Atraumatic. PERRL. EOMI. Conjunctiva and sclera clear. NECK: No carotid bruits. No JVD. Carotid upstrokes are brisk. Heart: RRR. S1 and S2 noted. No murmur. No rubs or gallops. PMI non displaced. Lungs: Clear to auscultation. No wheezes. No rhonchi. No rales. Abdomen: Normal bowel sounds. Soft. Nontender. No masses or organomegaly. No abdominal bruits. Extremities: No edema. No clubbing or cyanosis. Pulses: radial=2/4, posterior tibial=2/4, dorsalis pedis = 2/4. NEURO: No focal deficits. PSYCH: Appropriate affect and insight. Results & Data Vital Signs (Past 12 Hours) Vital Signs Temp Pulse Pulse Resp BP BP Pulse Ox 08/05/24 08:00 08/05/24 07:22 60 08/05/24 07:07 36.8 C 59 L 18 123/71 97 08/05/24 03:24 36.5 C 62 18 127/62 98 08/04/24 23:52 08/04/24 23:36 60 08/04/24 23:20 36.8 C 60 20 120/74 97 08/04/24 22:34 36.4 C L 60 20 137/78 96 O2 Del Method O2 Flow Rate 08/05/24 08:00 Nasal Cannula 3 08/05/24 07:22 08/05/24 07:07 Nasal Cannula 3 08/05/24 03:24 Room Air 08/04/24 23:52 Nasal Cannula 4 08/04/24 23:36 08/04/24 23:20 Nasal Cannula 4 08/04/24 22:34 Nasal Cannula 4 Laboratory Results Cardiac Enzymes 08/04/24 08/04/24 08/04/24 Range/Units 10:29 12:50 18:53 AST 911 H (13-39) U/L Troponin I High Sens 326.1 H* D 180.4 H* D (0-20) pg/ml 08/05/24 Range/Units 05:36 AST 406 H (13-39) U/L Troponin I High Sens (0-20) pg/ml Coagulation 08/04/24 Range/Units 10:29 PT 15.9 H (9.0-12.0) Seconds CBC 08/05/24 Range/Units 05:36 WBC 12.90 H (4.8-10.8) K/ul RBC 3.98 L (4.70-6.10) M/uL Hgb 12.6 L (14.0-18.0) g/dl Hct 36.9 L (42.0-52.0) % Plt Count 124 L (130-400) K/uL Neut # (Auto) 10.76 H (1.40-6.50) K/uL Lymph # (Auto) 0.63 L (1.20-3.40) K/uL [place] # (Auto) 1.38 H (0.11-0.59) K/uL Eos # (Auto) 0.01 (0.00-0.50) K/uL Baso # (Auto) 0.03 (0.00-0.20) K/uL Comprehensive Metabolic Panel 08/04/24 08/05/24 Range/Units 10:29 05:36 Sodium 130 L (136-145) mmol/L Potassium 4.6 (3.5-5.1) mmol/L Chloride 93 L (98-107) mmol/L Carbon Dioxide 28 (21-32) mmol/L BUN 36 H (6-23) mg/dl Creatinine 2.25 H (0.6-1.4) mg/dl Glucose 100 H (70-99(Fasting)) mg/dl Calcium 9.3 (8.6-10.3) mg/dl Direct Bilirubin 1.1 H 1.0 H (0-0.2) mg/dl AST 911 H 406 H (13-39) U/L ALT 557 H 399 H (7-52) U/L Alkaline Phosphatase 278 H 234 H (34-104) U/L Total Protein 6.3 5.7 L (6.0-8.3) gm/dl Albumin 3.6 3.2 L (3.4-5.0) gm/dl Intake and Output 08/04/24 08/05/24 08/05/24 22:59 06:59 14:59 Intake Total 225 / 2035.833 220 / 2035.833 Output Total 750 / 1475 425 / 1475 Balance -525 / 560.833 -205 / 560.833 Intake: IV 200 / 1590.833 100 / 1590.833 Magnesium Sulfate / D5w 1 gm In 100 / 290.833 100 ml @ 50 mls/hr IV Q2H [facility] Rx#:[id number] Piperacillin/Tazobactam 4.5 gm 100 / 300 100 / 300 In 100 ml @ 25 mls/hr IV Q8H [facility] Rx#:[id number] Oral 25 / 445 120 / 445 Output: Urine 750 / 1475 425 / 1475 Other: Weight 113 kg Weight Measurement Method Built in [facility]
--- NOTE | 2024-08-05 12:37 | Nephrology Progress Note ---
Date of Service August 05, 2024 Assessment & Plan (1) Acute kidney injury: Plan: stable SP w/ presenting creatinine 2.8, baseline creatinine 1.2. UA w/ granular casts, protein, blood. electrolytes acceptable; moderate volume overload as evidenced by pleural effusions, chronic HF - Expected his renal functions to worsen, but it is stable and he is making good urine-- this is encoraging. -continue to hold diuretics for now unless respiratory status worsens; likely to need diuretics soon -continue to hold entresto, eplerenone -strict I/O (2) Transaminitis: Plan: >monitor; f/u RUQ u/s (3) Chronic hyponatremia: Plan: chronic mild-moderate hyponatremia w/ levels of about 130 most recently summer 2023 as OP; serum osms 282; uOsm 740's -At [facility] -monitor daily -consider fluid limit if worsening Admission and Anticipated Discharge Date Admission Date: August 04, 2024 Subjective Resting comfortably in bed but c/o chest soreness. Denies chest pain, shortness of breath, lightheadedness, edema. Review of Systems 2 Review of Systems: All systems reviewed & are unremarkable except as noted in HPI & below Results & Data Vital Signs (Past 12 Hours) Vital Signs Temp Pulse Pulse Resp BP Pulse Ox O2 Del Method 08/05/24 11:52 36.8 C 60 16 108/66 96 Nasal Cannula 08/05/24 08:00 Nasal Cannula 08/05/24 07:22 60 08/05/24 07:07 36.8 C 59 L 18 123/71 97 Nasal Cannula 08/05/24 03:24 36.5 C 62 18 127/62 98 Room Air O2 Flow Rate 08/05/24 11:52 1 08/05/24 08:00 3 08/05/24 07:22 08/05/24 07:07 3 08/05/24 03:24 Laboratory Results 08/05/24 05:36 08/05/24 05:36
--- NOTE | 2024-08-05 16:06 | Hospitalist Progress Note ---
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 Patient tonight when he was going to sleep suddenly stopped breathing. His son started CPR and EMS were called. Seems when EMS arrived patient was in agonal breathing and seems pulses were present. CPR was continued for 5 minutes and no medication administered. AED pads were applied but no shock advised. As per ER paramedics blood pressure was 155 /100, heart rate 74 respiratory rate 24 on 15 lt. Blood sugar 101. In the ER patient was alert and awake and oriented. Patient has a bruise on his left side of the face. Patient lives with his and son. Daughter is in the room. Patient says that he fell couple of days ago. States he slipped and fell down. No loss of consciousness. Since the fall he was using walker. He has chest pain from his rib fractures. Currently states breathing is fine. He is on oxygen mask. States recently was started on doxycycline for cough and congestion. Denies any fevers. No headache. No dizziness. Vision is okay. No runny nose. Has some dry throat. Appetite has been down since last 1 week. No nausea. No abdominal pain. Somewhat constipated. Micturating okay. Hemodynamics okay currently. Cardiorespiratory arrest On the night of admission when the patient was going to sleep suddenly stopped breathing and required CPR. CPR was started by the son and continued by the EMS for about 5 minutes- pulses were present as per the record No meds or shocks were given He was noted to be alert and awake and oriented in the emergency room Admitted to ICU for continued care Hx of CAD s/p LALIT to RCA in 2019,hx of VT with syncope s/p cardiac defibrillator EKG shows a fib Intial troponin 67 and repeat 420 Has chest pain attributes to rib fractures, likely secondary to CPR and could be from fall Pacemaker interrogation ECHO showed limited study, LV systolic function is severely reduced with EF of 20 to 25%, severe global hypokinesis of the left ventricle, the RV chamber size and systolic function are grossly normal, aortic valve sclerosis mild without significant aortic valvular stenosis, there is mild tricuspid regurgitation and moderate pulmonary hypertension is present, compared to the images obtained at time of previous echo dated 06/16/2023 images were limited but more of better diagnostic quality than the present images the LVEF was graded to be 30 to 35% at the time On Aspirin,Plavix,metoprolol and amiodarone Appreciate cardiology input and recommendations Remains stable without any arrhythmias and/or chest pain except pain from the rib fracture Cumulative fluid balance is +1220 mL Possible pneumonia cxr has right sided haziness patchy ill defined ground glass opacity right upper lobe , and basal subsegmental collapse of both lower lobes. b/l mild pleural effusions on ct scan recently was started on po doxycyline-will be continued er gave zosyn- will be continued Frontal and maxillary sinusitis Started on intravenous Zosyn and doxycycline has been added Denies any cough and/or increasing shortness of breath and will continue current antibiotic SP with Hyponatremia and Hyperkalemia Creatinine went up to 2.0 with a baseline of 1.2 Holding lasix, entresto and eplernone Gentle fluids ns@50ml/hr Appreciate nephrology input and recommendation Has been diuresing enough and kidney function remains stable without any worsening Will need to give some intravenous fluid if continues to have profuse diuresis Possible shock liver Elevated LFT CT scan liver seems ok and the ultrasound is showing fatty liver and no evidence of misael hepatis thrombosis Appreciate GI input and recommendation Will monitor LFTs, doubt any acute hepatitis Advised to quit drinking Hypocalcemia Ionized mauro 1.1 1 amp of iv calcium gluconate-calcium level is normalized Left proximal and mid ureter lesion infective/inflammatory or traumatic pathology per ct scan urology consult- appreciate input and recommendation Will appointment as an outpatient with urologist b/l femoral head avascular necrosis stable per ct scan needs followup fall pt/ot when stable H/O of CVA in 06/2023 s/p tnk on aspirin and plavix and zetia and statin Hx of right pleural effusion s/p Pleurx cath in december 2023 and removd in jun 2024 workup for malignancy was unremarkable per records. Chronic combined sytolic and diastolic chf ef 35-39% on echo done on 11/30/23 holding diuretcis monitor for volume overload PVD on aspirina and plavix and statin Chronic back pain following with orthospine Gout on allopurinol Dvt px scds Ultrasound of the legs have been negative for any DVTs Disposition ICU Full code Admission and Anticipated Discharge Date Admission Date: August 04, 2024 Subjective 08/04/2024 The patient was seen and examined in ICU in presence of the family members He was admitted following cardiorespiratory arrest at home which required CPR Feels generally weak and lethargic with minimal discomfort in the abdomen and also in the chest Denies any other significant symptoms 08/05/2024 The patient was seen and examined in telemetry unit He has been weak but denies any other symptoms Minimal chest pain with breathing Has been diuresing enough and denies any abdominal pain nausea no vomiting Review of Systems Review of Systems: All systems reviewed and are unremarkable except as noted below Physical Exam Physical Exam: Lying in bed without any acute distress Constitutional: well developed, well nourished and + ill appearing Eyes: PERRL, conjunctivae normal, anicteric sclerae ENMT: external ear and nose normal, oropharynx normal Neck: trachea midline, no thyromegaly Respiratory: no respiratory distress Auscultation: + diminished lung sounds Cardiovascular: Rate/Rhythm: regular rate and regular rhythm; not tachycardic Heart Sounds: normal S1 and normal S2; no murmur Extremities: no edema Gastrointestinal (Abdomen): Inspection/Auscultation: + abdomen distended and normal bowel sounds Percussion/Palpation: abdomen soft; abdomen nontender Musculoskeletal: No acute arthritis involving any of the joint Neurologic: normal touch/pain/proprioception and moves all extremities; no focal motor deficits Lymphatic: no cervical or axillary lymphadenopathy Results & Data Results & Data Vital Signs (Past 12 Hours) Vital Signs Temp Pulse Pulse Resp BP Pulse Ox O2 Del Method 08/05/24 15:58 36.5 C 60 20 121/69 95 Nasal Cannula 08/05/24 15:30 60 08/05/24 11:52 36.8 C 60 16 108/66 96 Nasal Cannula 08/05/24 08:00 Nasal Cannula 08/05/24 07:22 60 08/05/24 07:07 36.8 C 59 L 18 123/71 97 Nasal Cannula O2 Flow Rate 08/05/24 15:58 3 08/05/24 15:30 08/05/24 11:52 1 08/05/24 08:00 3 08/05/24 07:22 08/05/24 07:07 3 Laboratory Results Short CBC 08/05/24 Range/Units 05:36 WBC 12.90 H (4.8-10.8) K/ul Hgb 12.6 L (14.0-18.0) g/dl Hct 36.9 L (42.0-52.0) % Plt Count 124 L (130-400) K/uL BMP 08/05/24 05:36 Sodium 130 L Potassium 4.6 Chloride 93 L Carbon Dioxide 28 BUN 36 H Creatinine 2.25 H Glucose 100 H Calcium 9.3 Liver Function 08/05/24 Range/Units 05:36 Total Bilirubin 1.9 H (0.2-1.0) mg/dl Direct Bilirubin 1.0 H (0-0.2) mg/dl AST 406 H (13-39) U/L ALT 399 H (7-52) U/L Alkaline Phosphatase 234 H (34-104) U/L Albumin 3.2 L (3.4-5.0) gm/dl Medications Administered Current Inpatient Medications Albuterol (Albuterol Hfa 8 Gm Inhaler) 2 puffs INH Q6R PRN PRN Reason: Shortness Of Breath Or Wheezin Stop: 09/03/24 06:51 Allopurinol (Allopurinol 100 Mg Tab) 100 mg PO [facility] Stop: 09/03/24 20:59 Last Admin: 08/04/24 20:08 Dose: 100 mg Aspirin (Aspirin 81 Mg Ectab) 81 mg PO [facility] Stop: 09/03/24 08:59 Last Admin: 08/05/24 09:16 Dose: 81 mg Clopidogrel Bisulfate (Clopidogrel Bisulfate 75 Mg Tab) [facility] [place]: 09/03/24 08:59 Last Admin: 08/05/24 09:16 Dose: 75 mg Ezetimibe (Ezetimibe 10 Mg Tab) 10 [facility] Stop: 09/03/24 08:59 Last Admin: 08/05/24 09:16 Dose: 10 mg Fluticasone Furoate (Fluticasone Furoate 100mcg 14 Puffs/Inhaler) 1 puffs INH DAILY [facility] Stop: 09/03/24 08:59 Last Admin: 08/05/24 09:17 Dose: 1 puffs Gabapentin (Gabapentin 300 Mg Cap) 300 mg PO BID [facility] Stop: 09/03/24 08:59 Last Admin: 08/05/24 09:15 Dose: 300 mg Heparin Sodium (Porcine) (Heparin Sod 5,000 Unit/0.5 Ml Vial) 5,000 units SQ Q12 [facility] Stop: 09/03/24 20:59 Last Admin: 08/05/24 09:15 Dose: 5,000 units Piperacillin Sod/Tazobactam Sod (Zosyn) 4.5 gm in 100 mls @ 25 mls/hr IV Q8H [facility]; Protocol Stop: 08/09/24 07:59 Last Infusion: 08/05/24 12:12 Dose: Infused Pantoprazole Sodium (Protonix) 40 mg in 10 mls @ 5 mls/min IV DAILY [facility] Stop: 09/03/24 09:59 Last Admin: 08/05/24 09:16 Dose: 5 mls/min Levalbuterol HCl (Levalbuterol 1.25 Mg/3 Ml Neb) 1.25 mg NEB Q4R PRN PRN Reason: Shortness Of Breath Or Wheezing Stop: 09/03/24 06:51 Metoprolol Succinate (Metoprolol Succ 50mg Ext Rel Tab) 50 [facility] Stop: 09/03/24 08:59 Last Admin: 08/05/24 09:16 Dose: 50 mg Metoprolol Succinate (Metoprolol Succ 25mg Ext Rel Tab) 25 mg PO DAILY@1800 [facility] Stop: 09/03/24 17:59 Last Admin: 08/04/24 18:02 Dose: 25 mg Multivitamins/Minerals (Cerovite Adv Formula Tab) 1 tab PO QAM [facility] Stop: 09/03/24 08:59 Last Admin: 08/05/24 09:16 Dose: 1 tab Nitroglycerin (Nitroglycerin Sl 0.4 Mg/Tab Tab) 0.4 mg SL Q5M PRN PRN Reason: Chest Pain Stop: 09/03/24 06:51 Polyethylene Glycol (Polyethylene (Miralax) 17 Gm Pack) 17 gm PO DAILY PRN PRN Reason: Constipation Stop: 09/03/24 06:51 Rosuvastatin Calcium (Rosuvastatin Calcium 10 Mg Tab) 10 mg PO DAILY [facility] Stop: 09/03/24 08:59 Last Admin: 08/05/24 09:16 Dose: 10 mg Tramadol HCl (Tramadol Hcl 50 Mg Tablet) 50 mg PO TID PRN PRN Reason: Severe Pain (Scale 7, 8, 9,10) Stop: 09/03/24 20:05 Last Admin: 08/05/24 15:17 Dose: 50 mg Umeclidinium/Vilanterol (Umeclidinium/Vilanterol 62.5/25mcg 7 Puffs/Inhaler) 1 puffs INH DAILY [facility] Stop: 09/03/24 08:59 Last Admin: 08/05/24 09:17 Dose: 1 puffs Vitamin B Complex (Vitamin B Complex Tab) 1 tab PO DAILY [facility] Stop: 09/03/24 08:59 Last Admin: 08/05/24 09:16 Dose: 1 tab
[2024-08-05] MEDS: DOXYCYCLINE HYCLATE 100 MG CAP PO SCH (20:25)
[2024-08-06 07:16] LABS: Basophils # (auto) 0.04 K/uL (0.00-0.20); Basophils % (auto) 0.4 %; Eosinophils # (auto) 0.04 K/uL (0.00-0.50); Eosinophils % (auto) 0.4 %; Hematocrit (blood only) 37.8 % (42.0-52.0); Hemoglobin 12.5 g/dl (14.0-18.0); Immature Granulocytes # (auto) 0.08 K/uL (0.01-0.20); Immature Granulocytes % (auto) 0.7 %; Lymphocytes # (auto) 0.78 K/uL (1.20-3.40); Lymphocytes % (auto) 7.2 %; Mean Corpuscular Hemoglobin 31.3 pg (25.0-34.0); Mean Corpuscular Hgb Conc 33.1 g/dL (32.0-36.0); Mean Corpuscular Volume 94.7 fL (80.0-100.0); Mean Platelet Volume 8.9 fL (9.4-12.4); Monocytes # (auto) 1.46 K/uL (0.11-0.59); Monocytes % (auto) 13.4 %; Neutrophils # (auto) 8.47 K/uL (1.40-6.50); Neutrophils % (auto) 77.9 %; Platelet Count 108 K/uL (130-400); RDW Coefficient of Variation 15.9 % (11.5-14.5); RDW Standard Deviation 54.4 fL (36.4-46.3); Red Blood Count 3.99 M/uL (4.70-6.10); White Blood Count 10.87 K/ul (4.8-10.8)
--- NOTE | 2024-08-06 07:32 | Electrocardiogram Report ---
Test Reason : Blood Pressure : */* mmHG Vent. Rate : 60 BPM Atrial Rate : 60 BPM P-R Int : 198 ms QRS Dur : 110 ms QT Int : 472 ms P-R-T Axes : * 81 211 degrees QTcB Int : 472 ms AV dual-paced rhythm Abnormal ECG When compared with ECG of 05-Aug-2024 05:59, No significant change was found Confirmed by Kaiser Gutierrez [id number] on 08/06/2024 7:32:44 AM Referred By: REFERRED SELF Confirmed By: Kaiser Gutierrez
[2024-08-06 07:42] LABS: BUN Creatinine Ratio 17.1 (10-20); Calcium 9.2 mg/dl (8.6-10.3); Creatinine Clr Calc Pharmacy 40.9 ml/min; Potassium 4.4 mmol/L (3.5-5.1)
[2024-08-06] MEDS: HYDROmorphone INJ 0.5 MG/0.5 ML SYR IV STA (08:28)
--- NOTE | 2024-08-06 08:28 | Communication Note ---
Date of Service: August 06, 2024 Ischemic hepatitis. Potential some underlying liver disease from alcohol use enzymes improving. Recheck tomorrow.
--- NOTE | 2024-08-06 09:17 | Cardiology Progress Note ---
Date of Service August 06, 2024 Assessment & Plan (1) Respiratory arrest: (2) Acute on chronic heart failure with reduced ejection fraction and diastolic dysfunction: (3) Multiple fractures of ribs, left side, initial encounter for closed fracture: Plan 69 year old male who was admitted after cardiopulmonary arrest at home, CPR performed by family, EMS arrived and reported agonal breathing. AED applied, no shocks advised. He spontaneously regained consciousness with CPR (no ACLS medications administered). ICD interrogated with no shocks delivered. - possible primary respiratory arrest, CXR with possible pneumonia, no evidence of ACS, troponin elevation likely secondary to arrest, trending down on repeat - overall feeling well today on exam - labs with mild anemia, hyponatremia, SP - repeat LFTs ordered - continue aspirin, plavix, metoprolol succinate, rosuvastatin, zetia - hold [employer]IATION [employer]INE[employer] entresto and eplerenone due to SP, hold amiodarone due to transaminitis - antibiotics for pneumonia per primary - continue to monitor on telemetry Case discussed with supervising physician, further recommendations per Dr. Henderson. I spent a total of 20 minutes on the date of service in preparation, delivery, and documentation of the care provided to this patient excluding any time spent in the performance of separately billed services. This visit was a split-shared visit with the substantial portion of the decision making performed by the supervising clinical nurse reviewer/billing provider. Admission and Anticipated Discharge Date Admission Date: August 04, 2024 Supervising Physician Co-Signing Physician Notes I spent a total of 30 minutes on the date of service in preparation, delivery, and documentation of the care provided to this patient, excluding any time spent in the performance of separately billed services. I have personally performed a history and physical examination on the patient. I have reviewed the advance practitioner's documentation, and I agree with, and take responsibility for the plan of care. Subjective Evaluated today in cardiology follow up. Still with chest soreness when taking a deep breath. Denies shortness of breath, edema. Sat on side of bed yesterday, wants to try to get to chair today. Telemetry with controlled heart rates. Review of Systems Review of Systems: CONSTITUTIONAL: No change in weight, No weakness, No fatigue and No fevers, No sweats or chills. PULMONARY: No cough, sputum, or hemoptysis, No wheezing, No shortness of breath and No recent change in breathing. CARDIOVASCULAR: No chest pain, No dyspnea on exertion, No edema, No palpitations and No syncope. GASTROINTESTINAL: No abdominal pain, No change in bowel habits, No significant heartburn, No nausea, No vomiting, No diarrhea, No constipation, No blood in stools or black tarry stools. No dysphagia. HEMATOLOGIC: No abnormal bleeding and No bruising. NEUROLOGICAL: Normal balance, No headaches and No weakness. Physical Exam Physical Exam: General: No acute distress. A+Ox3. HEENT: Normocephalic. Atraumatic. PERRL. EOMI. Conjunctiva and sclera clear. NECK: No carotid bruits. No JVD. Carotid upstrokes are brisk. Heart: RRR. S1 and S2 noted. No murmur. No rubs or gallops. PMI non displaced. Lungs: Clear to auscultation. No wheezes. No rhonchi. No rales. Abdomen: Normal bowel sounds. Soft. Nontender. No masses or organomegaly. No abdominal bruits. Extremities: No edema. No clubbing or cyanosis. Pulses: radial=2/4, posterior tibial=2/4, dorsalis pedis = 2/4. NEURO: No focal deficits. PSYCH: Appropriate affect and insight. Results & Data Vital Signs (Past 12 Hours) Vital Signs Temp Pulse Pulse Resp BP BP Pulse Ox 08/06/24 08:17 36.4 C L 62 20 133/75 98 08/06/24 08:00 08/06/24 07:45 08/06/24 03:00 60 08/06/24 02:43 36.4 C L 60 18 136/77 95 08/05/24 22:56 36.8 C 60 18 138/72 95 O2 Del Method O2 Del Method O2 Flow Rate O2 Flow Rate 08/06/24 08:17 Nasal Cannula 2 08/06/24 08:00 Nasal Cannula 2 08/06/24 07:45 Nasal Cannula 2 08/06/24 03:00 08/06/24 02:43 Nasal Cannula 2 08/05/24 22:56 Nasal Cannula 2 Laboratory Results CBC 08/06/24 Range/Units 06:14 WBC 10.87 H (4.8-10.8) K/ul RBC 3.99 L (4.70-6.10) M/uL Hgb 12.5 L (14.0-18.0) g/dl Hct 37.8 L (42.0-52.0) % Plt Count 108 L (130-400) K/uL Neut # (Auto) 8.47 H (1.40-6.50) K/uL Lymph # (Auto) 0.78 L (1.20-3.40) K/uL [place] # (Auto) 1.46 H (0.11-0.59) K/uL Eos # (Auto) 0.04 (0.00-0.50) K/uL Baso # (Auto) 0.04 (0.00-0.20) K/uL Comprehensive Metabolic Panel 08/06/24 Range/Units 06:14 Sodium 130 L (136-145) mmol/L Potassium 4.4 (3.5-5.1) mmol/L Chloride 92 L (98-107) mmol/L Carbon Dioxide 33 H (21-32) mmol/L BUN 37 H (6-23) mg/dl Creatinine 2.16 H (0.6-1.4) mg/dl Glucose 95 (70-99(Fasting)) mg/dl Calcium 9.2 (8.6-10.3) mg/dl Intake and Output 08/05/24 08/06/24 08/06/24 22:59 06:59 14:59 Intake Total 640 / 940 200 / 940 Output Total 1200 / 1200 Balance 640 / -260 -1000 / -260 Intake: IV 100 / 300 100 / 300 Piperacillin/Tazobactam 4.5 gm 100 / 300 100 / 300 In 100 ml @ 25 mls/hr IV Q8H [facility] Rx#:[id number] Oral 540 / 640 100 / 640 Output: Urine 1200 / 1200 Other: # Unmeasured Voids 1 Weight 114.3 kg Weight Measurement Method Built in [facility]
[2024-08-06] MEDS: DICLOFENAC SOD 1% GEL 100 GM TUBE EXT SCH (10:17)
[2024-08-06 11:22] LABS: Albumin Level 3.2 gm/dl (3.4-5.0); Bilirubin,Total 1.9 mg/dl (0.2-1.0); Total Protein 5.7 gm/dl (6.0-8.3)
--- NOTE | 2024-08-06 11:48 | Nephrology Progress Note ---
Date of Service August 06, 2024 Assessment & Plan (1) Acute kidney injury: Plan: stable SP w/ presenting creatinine 2.8, baseline creatinine 1.2. UA w/ granular casts, protein, blood. electrolytes acceptable; moderate volume overload as evidenced by pleural effusions, chronic HF - Renal functions is stable, rather improving now and he is making good urine-- this is encouraging. -continue to hold diuretics for now unless respiratory status worsens; He has trace to1+ edema now>>will likely to need diuretics from tmrw -continue to hold entresto, eplerenone -strict I/O (2) Transaminitis: Plan: >monitor; f/u RUQ u/s (3) Chronic hyponatremia: Plan: chronic mild-moderate hyponatremia w/ levels of about 130 most recently summer 2023 as OP; serum osms 282; uOsm 740's -At baseline -monitor daily -consider fluid limit if worsening Admission and Anticipated Discharge Date Admission Date: August 04, 2024 Subjective Chest soreness better..Denies shortness of breath. Review of Systems 2 Review of Systems: All systems reviewed & are unremarkable except as noted in HPI & below Physical Exam 2 Physical Exam: General: No acute distress. A+Ox3. NECK: No carotid bruits. No JVD. Carotid upstrokes are brisk. Heart: RRR. S1 and S2 noted. No murmur. No rubs or gallops. PMI non displaced. Lungs: Clear to auscultation. No wheezes. No rhonchi. No rales. Abdomen: Normal bowel sounds. Soft. Nontender. No masses or organomegaly. No abdominal bruits. Extremities: Trace to 1+edema. No clubbing or cyanosis. Results & Data Vital Signs (Past 12 Hours) Vital Signs Temp Pulse Pulse Resp BP Pulse Ox O2 Del Method 08/06/24 08:17 36.4 C L 62 20 133/75 98 Nasal Cannula 08/06/24 08:00 08/06/24 07:45 Nasal Cannula 08/06/24 03:00 60 08/06/24 02:43 36.4 C L 60 18 136/77 95 Nasal Cannula O2 Del Method O2 Flow Rate O2 Flow Rate 08/06/24 08:17 2 08/06/24 08:00 Nasal Cannula 2 08/06/24 07:45 2 08/06/24 03:00 08/06/24 02:43 2 Laboratory Results 08/06/24 06:14 08/06/24 06:14
--- NOTE | 2024-08-06 15:22 | Hospitalist Progress Note ---
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 Patient tonight when he was going to sleep suddenly stopped breathing. His son started CPR and EMS were called. Seems when EMS arrived patient was in agonal breathing and seems pulses were present. CPR was continued for 5 minutes and no medication administered. AED pads were applied but no shock advised. As per ER paramedics blood pressure was 155 /100, heart rate 74 respiratory rate 24 on 15 lt. Blood sugar 101. In the ER patient was alert and awake and oriented. Patient has a bruise on his left side of the face. Patient lives with his and son. Daughter is in the room. Patient says that he fell couple of days ago. States he slipped and fell down. No loss of consciousness. Since the fall he was using walker. He has chest pain from his rib fractures. Currently states breathing is fine. He is on oxygen mask. States recently was started on doxycycline for cough and congestion. Denies any fevers. No headache. No dizziness. Vision is okay. No runny nose. Has some dry throat. Appetite has been down since last 1 week. No nausea. No abdominal pain. Somewhat constipated. Micturating okay. Hemodynamics okay currently. Cardiorespiratory arrest On the night of admission when the patient was going to sleep suddenly stopped breathing and required CPR. CPR was started by the son and continued by the EMS for about 5 minutes- pulses were present as per the record No meds or shocks were given He was noted to be alert and awake and oriented in the emergency room Admitted to ICU for continued care Hx of CAD s/p LALIT to RCA in 2019,hx of VT with syncope s/p cardiac defibrillator EKG shows a fib Intial troponin 67 and repeat 420 Has chest pain attributes to rib fractures, likely secondary to CPR and could be from fall Pacemaker interrogation ECHO showed limited study, LV systolic function is severely reduced with EF of 20 to 25%, severe global hypokinesis of the left ventricle, the RV chamber size and systolic function are grossly normal, aortic valve sclerosis mild without significant aortic valvular stenosis, there is mild tricuspid regurgitation and moderate pulmonary hypertension is present, compared to the images obtained at time of previous echo dated 06/16/2023 images were limited but more of better diagnostic quality than the present images the LVEF was graded to be 30 to 35% at the time On Aspirin,Plavix,metoprolol and amiodarone Appreciate cardiology input and recommendations Remains stable without any arrhythmias and/or chest pain except pain from the rib fracture Cumulative fluid balance is +1220 mL Has been diuresing enough and cumulative fluid balance is positive 290 Feels lot better and has some pain in the anterior chest wallreceived 1 dose of intravenous Dilaudid and will try local diclofenac Chronic combined sytolic and diastolic CHF EF 35-39% on echo done on 11/30/23 with significant decrease in EF to 20 to 25% on recent echo significant decrease in EF to 20 to 25% on recent echo holding diuretcis No evidence of fluid overload The patient is diuresing enough without Lasix likely is in diuretic phase of SP Will monitor intake output chart and if needed will be given cautious amount of intravenous fluid Possible pneumonia cxr has right sided haziness patchy ill defined ground glass opacity right upper lobe , and basal subsegmental collapse of both lower lobes. b/l mild pleural effusions on ct scan recently was started on po doxycyline-will be continued er gave zosyn- will be continued Frontal and maxillary sinusitis Started on intravenous Zosyn and doxycycline has been added Denies any cough and/or increasing shortness of breath and will continue current antibiotic Denies any cough and no shortness of breath at rest no fever no chills SP with Hyponatremia and Hyperkalemia Creatinine went up to 2.0 with a baseline of 1.2 Holding lasix, entresto and eplernone Gentle fluids ns@50ml/hr Appreciate nephrology input and recommendation Has been diuresing enough and kidney function remains stable without any w orsening Will need to give some intravenous fluid if continues to have profuse diuresis Creatinine has been improving gradually it is 2.16 as of today Possible shock liver Elevated LFT CT scan liver seems ok and the ultrasound is showing fatty liver and no evidence of misael hepatis thrombosis Appreciate GI input and recommendation Will monitor LFTs, doubt any acute hepatitis Advised to quit drinking LFTs are improving Hypocalcemia Ionized mauro 1.1 1 amp of iv calcium gluconate-calcium level is normalized Left proximal and mid ureter lesion infective/inflammatory or traumatic pathology per ct scan urology consult- appreciate input and recommendation Will appointment as an outpatient with urologist b/l femoral head avascular necrosis stable per ct scan needs followup fall pt/ot when stable H/O of CVA in 06/2023 s/p tnk on aspirin and plavix and zetia and statin Hx of right pleural effusion s/p Pleurx cath in december 2023 and removd in jun 2024 workup for malignancy was unremarkable per records. PVD on aspirina and plavix and statin Chronic back pain following with orthospine Gout on allopurinol Dvt px scds Ultrasound of the legs have been negative for any DVTs Disposition ICU Full code Admission and Anticipated Discharge Date Admission Date: August 04, 2024 Subjective 08/04/2024 The patient was seen and examined in ICU in presence of the family members He was admitted following cardiorespiratory arrest at home which required CPR Feels generally weak and lethargic with minimal discomfort in the abdomen and also in the chest Denies any other significant symptoms 08/05/2024 The patient was seen and examined in telemetry unit He has been weak but denies any other symptoms Minimal chest pain with breathing Has been diuresing enough and denies any abdominal pain nausea no vomiting 08/06/2024 The patient was seen and examined in telemetry unit He has been complaining of chest pain secondary to rib fracture and does not have any shortness of breath at rest or palpitation Remain generally weak but has been feeling a lot better Review of Systems Review of Systems: All systems reviewed and are unremarkable except as noted below Physical Exam Physical Exam: Lying in bed without any acute distress Constitutional: well developed, well nourished and + ill appearing Eyes: PERRL, conjunctivae normal, anicteric sclerae ENMT: external ear and nose normal, oropharynx normal Neck: trachea midline, no thyromegaly Respiratory: no respiratory distress Auscultation: + diminished lung sounds Cardiovascular: Rate/Rhythm: regular rate and regular rhythm; not tachycardic Heart Sounds: normal S1 and normal S2; no murmur Extremities: no edema Gastrointestinal (Abdomen): Inspection/Auscultation: + abdomen distended and normal bowel sounds Percussion/Palpation: abdomen soft; abdomen nontender Musculoskeletal: Sharp pain in anterior chest wall with sternal pressure Neurologic: normal touch/pain/proprioception and moves all extremities; no focal motor deficits Lymphatic: no cervical or axillary lymphadenopathy Results & Data Results & Data Vital Signs (Past 12 Hours) Vital Signs Temp Pulse Resp BP Pulse Ox O2 Del Method O2 Del Method 08/06/24 12:09 36.4 C L 60 20 119/73 95 Room Air 08/06/24 08:17 36.4 C L 62 20 133/75 98 Nasal Cannula 08/06/24 08:00 Nasal Cannula 08/06/24 07:45 Nasal Cannula O2 Flow Rate O2 Flow Rate 08/06/24 12:09 08/06/24 08:17 2 08/06/24 08:00 2 08/06/24 07:45 2 Laboratory Results Short CBC 08/06/24 Range/Units 06:14 WBC 10.87 H (4.8-10.8) K/ul Hgb 12.5 L (14.0-18.0) g/dl Hct 37.8 L (42.0-52.0) % Plt Count 108 L (130-400) K/uL BMP 08/06/24 06:14 Sodium 130 L Potassium 4.4 Chloride 92 L Carbon Dioxide 33 H BUN 37 H Creatinine 2.16 H Glucose 95 Calcium 9.2 Liver Function 08/06/24 Range/Units 06:14 Total Bilirubin 1.9 H (0.2-1.0) mg/dl Direct Bilirubin 1.0 H (0-0.2) mg/dl AST 205 H (13-39) U/L ALT 282 H (7-52) U/L Alkaline Phosphatase 268 H (34-104) U/L Albumin 3.2 L (3.4-5.0) gm/dl Medications Administered Current Inpatient Medications Albuterol (Albuterol Hfa 8 Gm Inhaler) 2 puffs INH Q6R PRN PRN Reason: Shortness Of Breath Or Wheezin Stop: 09/03/24 06:51 Allopurinol (Allopurinol 100 Mg Tab) 100 mg PO HS ANGELES Stop: 09/03/24 20:59 Last Admin: 08/05/24 20:25 Dose: 100 mg Aspirin (Aspirin 81 Mg Ectab) 81 mg PO QAM ANGELES Stop: 09/03/24 08:59 Last Admin: 08/06/24 08:29 Dose: 81 mg Clopidogrel Bisulfate (Clopidogrel Bisulfate 75 Mg Tab) 75 mg PO QAM [facility] Stop: 09/03/24 08:59 Last Admin: 08/06/24 08:29 Dose: 75 mg Diclofenac Sodium (Diclofenac Sod 1% Gel 100 Gm Tube) 2 gm EXT BID [facility]; Protocol Stop: 09/05/24 08:59 Last Admin: 08/06/24 10:17 Dose: 2 gm Doxycycline Hyclate (Doxycycline Hyclate 100 Mg Cap) 100 mg PO BID [facility] Stop: 08/10/24 20:59 Last Admin: 08/06/24 08:30 Dose: 100 mg Ezetimibe (Ezetimibe 10 Mg Tab) 10 mg PO QAM [facility] Stop: 09/03/24 08:59 Last Admin: 08/06/24 08:30 Dose: 10 mg Fluticasone Furoate (Fluticasone Furoate 100mcg 14 Puffs/Inhaler) 1 puffs INH DAILY [facility] Stop: 09/03/24 08:59 Last Admin: 08/06/24 08:30 Dose: 1 puffs Gabapentin (Gabapentin 300 Mg Cap) 300 mg PO BID [facility] Stop: 09/03/24 08:59 Last Admin: 08/06/24 08:29 Dose: 300 mg Heparin Sodium (Porcine) (Heparin Sod 5,000 Unit/0.5 Ml Vial) 5,000 units SQ Q12 [facility] Stop: 09/03/24 20:59 Last Admin: 08/06/24 08:41 Dose: 5,000 units Piperacillin Sod/Tazobactam Sod (Zosyn) 4.5 gm in 100 mls @ 25 mls/hr IV Q8H [facility]; Protocol Stop: 08/09/24 07:59 Last Infusion: 08/06/24 11:48 Dose: Infused Pantoprazole Sodium (Protonix) 40 mg in 10 mls @ 5 mls/min IV DAILY [facility] Stop: 09/03/24 09:59 Last Admin: 08/06/24 08:35 Dose: 5 mls/min Levalbuterol HCl (Levalbuterol 1.25 Mg/3 Ml Neb) 1.25 mg NEB Q4R PRN PRN Reason: Shortness Of Breath Or Wheezing Stop: 09/03/24 06:51 Metoprolol Succinate (Metoprolol Succ 50mg Ext Rel Tab) 50 mg PO QAM [facility] Stop: 09/03/24 08:59 Last Admin: 08/06/24 08:29 Dose: 50 mg Metoprolol Succinate (Metoprolol Succ 25mg Ext Rel Tab) 25 mg PO DAILY@1800 [facility] Stop: 09/03/24 17:59 Last Admin: 08/05/24 17:55 Dose: 25 mg Multivitamins/Minerals (Cerovite Adv Formula Tab) 1 tab PO QAM [facility] Stop: 09/03/24 08:59 Last Admin: 08/06/24 08:30 Dose: 1 tab Nitroglycerin (Nitroglycerin Sl 0.4 Mg/Tab Tab) 0.4 mg SL Q5M PRN PRN Reason: Chest Pain Stop: 09/03/24 06:51 Polyethylene Glycol (Polyethylene (Miralax) 17 Gm Pack) 17 gm PO DAILY PRN PRN Reason: Constipation Stop: 09/03/24 06:51 Rosuvastatin Calcium (Rosuvastatin Calcium 10 Mg Tab) 10 mg PO DAILY [facility] Stop: 09/03/24 08:59 Last Admin: 08/06/24 08:30 Dose: 10 mg Tramadol HCl (Tramadol Hcl 50 Mg Tablet) 50 mg PO TID PRN PRN Reason: Severe Pain (Scale 7, 8, 9,10) Stop: 09/03/24 20:05 Last Admin: 08/06/24 02:43 Dose: 50 mg Umeclidinium/Vilanterol (Umeclidinium/Vilanterol 62.5/25mcg 7 Puffs/Inhaler) 1 puffs INH DAILY [facility] Stop: 09/03/24 08:59 Last Admin: 08/06/24 08:31 Dose: 1 puffs Vitamin B Complex (Vitamin B Complex Tab) 1 tab PO DAILY [facility] Stop: 09/03/24 08:59 Last Admin: 08/06/24 08:30 Dose: 1 tab
[2024-08-07 06:42] LABS: Albumin Globulin Ratio 1.3 (0.9-2); Albumin Level 3.2 gm/dl (3.4-5.0); BUN Creatinine Ratio 15.7 (10-20); Bilirubin,Total 1.9 mg/dl (0.2-1.0); Calcium 9.3 mg/dl (8.6-10.3); Creatinine Clr Calc Pharmacy 44.6 ml/min; Globulin 2.5 gm/dl (2.5-4.0); Potassium 4.4 mmol/L (3.5-5.1); Total Protein 5.7 gm/dl (6.0-8.3)
[2024-08-07] MEDS: traMADol HCL 50 MG TABLET PO PRN (08:12)
[2024-08-07] MEDS: ACETAMINOPHEN 500 MG TAB PO SCH (08:12)
--- NOTE | 2024-08-07 09:30 | Gastroenterology Progress Note ---
Date of Service August 07, 2024 Assessment & Plan (1) Transaminitis: Plan: 69 year old male w/ history of ICM, CAD with 4 stents, HTN, HLD, stroke, VT syncope, re-current pleural effusions, chronic back pain admitted 08/04/24 following cardio/pulmonary arrest at home - GI following for elevated LFTs. These have been improving during the course of admission/recovery and are likely related to his cardio-pulmonary event causing ischemia. 1. Suspected ischemic hepatitis - Continue supportive measures - Trend LFTs - ETOH cessation moving forward - Follow cute hepatitis panel Recall GI as needed. I spent a total of 40 minutes on the date of service in review of patient's record, and previously obtained information in person and appropriate medical visit, discussion and education of plan, with patient and/or caregiver, placing orders for tests/referral/procedures as medically necessary and documentation of pertinent clinical information in patient's medical records for their visit today. Admission and Anticipated Discharge Date Admission Date: August 04, 2024 Supervising Physician Co-Signing Physician Notes Patient with ischemic hepatitis. History of significant alcohol ingestion time years. We should document that his liver tests returned to normal. He follows with [facility] we can follow-up with him post. GI signed off reconsult. Subjective Pt was seen and evaluated, chart reviewed. Denies any GI concerns at this time. Tbili 1.1 --> 2.1 --> 1.9 AST 727 --> 911 --> 152 ALT 427 --> 557 --> 220 ALKP 331 --> 294 Review of Systems Review of Systems: All other findings negative except as noted in HPI. Physical Exam Constitutional: WD/WN, vitals as above Respiratory: normal respiratory effort Cardiovascular: Rate/Rhythm: regular rate and regular rhythm Gastrointestinal (Abdomen): Inspection/Auscultation: normal bowel sounds Percussion/Palpation: abdomen soft; abdomen nontender Skin: no rashes, warm and dry Results & Data Results & Data Vital Signs (Past 12 Hours) Vital Signs Temp Pulse Pulse Resp BP Pulse Ox O2 Del Method 08/07/24 08:46 97.5 F L 60 19 137/89 98 Nasal Cannula 08/07/24 07:20 60 08/07/24 07:20 Nasal Cannula 08/07/24 02:44 97.7 F 58 L 18 114/65 96 Nasal Cannula 08/07/24 00:48 60 08/06/24 22:42 97.7 F 60 18 112/65 95 Nasal Cannula O2 Flow Rate 08/07/24 08:46 1 08/07/24 07:20 08/07/24 07:20 2 08/07/24 02:44 08/07/24 00:48 08/06/24 22:42 Laboratory Results 08/07/24 08/06/24 08/06/24 Range/Units 05:32 12:01 06:14 Sodium 133 L (136-145) mmol/L Potassium 4.4 (3.5-5.1) mmol/L Chloride 95 L (98-107) mmol/L Carbon Dioxide 31 (21-32) mmol/L Anion Gap 7 (3-11) BUN 31 H (6-23) mg/dl Creatinine 1.98 H (0.6-1.4) mg/dl Est Cr Clr Drug Dosing 44.6 ml/min eGFR 35.89 BUN/Creatinine Ratio 15.7 (10-20) Glucose 83 (70-99(Fasting)) mg/dl POC Glucose 118 H (70-99) mg/dl Calcium 9.3 (8.6-10.3) mg/dl Total Bilirubin 1.9 H 1.9 H (0.2-1.0) mg/dl Direct Bilirubin 1.0 H (0-0.2) mg/dl AST 152 H 205 H (13-39) U/L ALT 220 H 282 H (7-52) U/L Alkaline Phosphatase 294 H 268 H (34-104) U/L Total Protein 5.7 L 5.7 L (6.0-8.3) gm/dl Albumin 3.2 L 3.2 L (3.4-5.0) gm/dl Globulin 2.5 (2.5-4.0) gm/dl Albumin/Globulin Ratio 1.3 (0.9-2) PG Care Time/CCT Total # of Minutes Spent Total Time Spent with Patient: Total time spent is greater than 50% in coordination of care (as documented) at patient's floor/unit and/or counseling patient: Coding Level of Care Code 86596 SUB INP/OBS CARE 2/35MIN Diagnoses Transaminitis R74.01
[2024-08-07 10:47] LABS: Hepatitis A Antibody IgM NON-REACTIVE (NON-REACTIVE); Hepatitis B Core Antibody IgM NON-REACTIVE (NON-REACTIVE)
--- NOTE | 2024-08-07 11:08 | Cardiology Progress Note ---
Date of Service August 07, 2024 Assessment & Plan (1) Respiratory arrest: (2) Acute on chronic heart failure with reduced ejection fraction and diastolic dysfunction: (3) Multiple fractures of ribs, left side, initial encounter for closed fracture: Plan 69 year old male who was admitted after cardiopulmonary arrest at home, CPR performed by family, EMS arrived and reported agonal breathing. AED applied, no shocks advised. He spontaneously regained consciousness with CPR (no ACLS medications administered). ICD interrogated with no shocks delivered. 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 No arrhythmias noted on telemetry. Renal function and hepatic enzymes are improving but would continue to hold Entresto and eplerenone Continue to hold amiodarone. Patient with defibrillator in place Volume status appears nearly euvolemic with only trace edema. Weight stable with good urinary output. Sodium improved We will continue to hold furosemide Prior history of right pleural effusion with Pleurx catheter removed June 2024 Repeat chest x-ray a.m. I spent a total of 40 minutes on the date of service in preparation, delivery, and documentation of the care provided to this patient excluding any time spent in the performance of separately billed services. Admission and Anticipated Discharge Date Admission Date: August 04, 2024 Subjective Patient was seen and personally examined. Chart and telemetry reviewed. No arrhythmias on telemetry overnight. Denies any worsening shortness of breath. Mild chest wall pain with movement and inspiration Review of Systems Review of Systems: All systems reviewed & are unremarkable except as noted in Subjective Physical Exam Constitutional: no acute distress Eyes: Left facial and periorbital ecchymosis Results & Data Vital Signs (Past 12 Hours) Vital Signs Temp Pulse Pulse Resp BP Pulse Ox O2 Del Method 08/07/24 08:46 36.4 C L 60 19 137/89 98 Nasal Cannula 08/07/24 07:20 60 08/07/24 07:20 Nasal Cannula 08/07/24 02:44 36.5 C 58 L 18 114/65 96 Nasal Cannula 08/07/24 00:48 60 O2 Flow Rate 08/07/24 08:46 1 08/07/24 07:20 08/07/24 07:20 2 08/07/24 02:44 08/07/24 00:48 Laboratory Results Laboratory Results - last 24 hr 08/04/24 08/06/24 08/06/24 10:36 06:14 12:01 Sodium Potassium Chloride Carbon Dioxide Anion Gap BUN Creatinine Est Cr Clr Drug Dosing eGFR BUN/Creatinine Ratio Glucose POC Glucose 118 H Calcium Total Bilirubin 1.9 H Direct Bilirubin 1.0 H AST 205 H ALT 282 H Alkaline Phosphatase 268 H Total Protein 5.7 L Albumin 3.2 L Globulin Albumin/Globulin Ratio Hepatitis A IgM Ab NON-REACTIVE Hep B Core IgM Ab NON-REACTIVE 08/07/24 05:32 Sodium 133 L Potassium 4.4 Chloride 95 L Carbon Dioxide 31 Anion Gap 7 BUN 31 H Creatinine 1.98 H Est Cr Clr Drug Dosing 44.6 eGFR 35.89 BUN/Creatinine Ratio 15.7 Glucose 83 POC Glucose Calcium 9.3 Total Bilirubin 1.9 H Direct Bilirubin AST 152 H ALT 220 H Alkaline Phosphatase 294 H Total Protein 5.7 L Albumin 3.2 L Globulin 2.5 Albumin/Globulin Ratio 1.3 Hepatitis A IgM Ab Hep B Core IgM Ab
[2024-08-07 12:38] LABS: MDA negative; MDEA negative; MDMA (Ecstasy) Urine, Confirm negative
--- NOTE | 2024-08-07 13:21 | Hospitalist Progress Note ---
Date of Service August 07, 2024 Assessment & Plan (1) Respiratory arrest before cardiac arrest: (2) Pneumonia: (3) Acute kidney injury: (4) Multiple fractures of ribs, left side, initial encounter for closed fracture: (5) Ischemia reperfusion injury of liver: (6) Acute on chronic heart failure with reduced ejection fraction and diastolic dysfunction: (7) Chronic hyponatremia: Plan Patient recovering from acute respiratory arrest leading to cardiac arrest which led to CPR. Suspected possible pneumonia was the inciting cause of the respiratory arrest. Patient now recovering from acute kidney injury and ischemic hepatitis from his respiratory arrest. Kidney function and liver functions slowly improving Increasing activity as tolerated Tylenol for his pain as well as tramadol as needed, believe Tylenol is safe we even with his liver dysfunction as we have evidence that liver is improving with his better reperfused state. Therapies Case management for possible rehab placement Cardiology recommendations noted as far as continuing to hold his amiodarone and other cardiac meds. Transition to oral antibiotics Admission and Anticipated Discharge Date Admission Date: August 04, 2024 Subjective Patient reports he is slowly improving. Fair amount of pain from his rib fractures. Still requires significant mount of assistance Physical Exam Physical Exam: Constitutional: Alert, nontoxic HEENT: Mucous membranes moist. Facial bruising on the left Lungs: Decreased breath sounds, few crackles CV: S1-S2, regular Abdomen: Soft, nontender, nondistended Extremities: No significant edema Neuro: No focal deficits, generalized weakness Psych: Cooperative, normal mood Results & Data Results & Data Vital Signs (Past 12 Hours) Vital Signs Temp Pulse Pulse Resp BP Pulse Ox O2 Del Method 08/07/24 12:26 36.3 C L 48 L 19 125/71 96 Room Air 08/07/24 08:46 36.4 C L 60 19 137/89 98 Nasal Cannula 08/07/24 07:20 60 08/07/24 07:20 Nasal Cannula 08/07/24 02:44 36.5 C 58 L 18 114/65 96 Nasal Cannula O2 Flow Rate 08/07/24 12:26 08/07/24 08:46 1 08/07/24 07:20 08/07/24 07:20 2 08/07/24 02:44 Diagnostic Findings Reviewed imaging, laboratory and diagnostic studies. Pertinent findings as be low. Sodium 133 Creatinine 1.98, improved LFTs reviewed, improving
[2024-08-07] MEDS: CEFDINIR 300 MG CAP PO SCH (20:33)
[2024-08-07] MEDS: ALBUTEROL HFA 8 GM INHALER INH PRN (21:10)
[2024-08-08 06:21] LABS: BUN Creatinine Ratio 14.6 (10-20); Calcium 9.4 mg/dl (8.6-10.3); Creatinine Clr Calc Pharmacy 49.5 ml/min; Potassium 4.7 mmol/L (3.5-5.1)
[2024-08-08] MEDS: PANTOprazole 40 MG TAB PO SCH (08:32)
--- NOTE | 2024-08-08 12:32 | Cardiology Progress Note ---
Date of Service August 08, 2024 Assessment & Plan (1) Respiratory arrest: (2) Acute on chronic heart failure with reduced ejection fraction and diastolic dysfunction: (3) Multiple fractures of ribs, left side, initial encounter for closed fracture: Plan 69 year old male who was admitted after cardiopulmonary arrest at home, CPR performed by family, EMS arrived and reported agonal breathing. AED applied, no shocks advised. He spontaneously regained consciousness with CPR (no ACLS medications administered). ICD interrogated with no shocks delivered. - possible primary respiratory arrest, CXR with possible pneumonia, no evidence of ACS, troponin elevation likely secondary to arrest, trending down on repeat - overall feeling well today on exam - labs with mild anemia, hyponatremia, SP - repeat LFTs ordered - continue aspirin, plavix, metoprolol succinate, rosuvastatin, zetia - hold [employer] OFFICER entresto and eplerenone due to SP, hold amiodarone due to transaminitis - antibiotics for pneumonia per primary - continue to monitor on telemetry 08/07/2024 Patient by own description is slowly improving. No arrhythmias noted on telemetry. Renal function and hepatic enzymes are improving but would continue to hold Entresto and eplerenone Continue to hold amiodarone. Patient with defibrillator in place Volume status appears nearly euvolemic with only trace edema. Weight stable with good urinary output. Sodium improved We will continue to hold furosemide Prior history of right pleural effusion with Pleurx catheter removed June 2024 Repeat chest x-ray a.m. 08/08/2024 Patient with continued slow improvement. Persistent hypoxia with ambulation present. Chest x-ray ordered for today pending Renal function slowly improving. Will continue to hold furosemide Entresto and amiodarone Agree with plans for inpatient rehab I spent a total of 40 minutes on the date of service in preparation, delivery, and documentation of the care provided to this patient excluding any time spent in the performance of separately billed services. Admission and Anticipated Discharge Date Admission Date: August 04, 2024 Subjective The patient was seen and examined, chart, medications, telemetry reviewed. Slowly improving still fatigued with exertion. Chest pain controlled. Noted hypoxia with ambulation per patient No arrhythmias on telemetry. Persistent AV sequential pacing Appetite improving, weight stable Review of Systems Review of Systems: All systems reviewed & are unremarkable except as noted in Subjective Physical Exam Constitutional: no acute distress Eyes: PERRL, conjunctivae normal, anicteric sclerae Facial ecchymosis improving Neck: trachea midline, no thyromegaly Respiratory: Auscultation: + diminished lung sounds Cardiovascular: Rate/Rhythm: regular rate and regular rhythm (AV paced) Vessels: no JVD Extremities: no edema Gastrointestinal (Abdomen): normal bowel sounds, soft, nontender, no hepatosplenomegaly Results & Data Vital Signs (Past 12 Hours) Vital Signs Temp Pulse Pulse Resp BP Pulse Ox O2 Del Method 08/08/24 12:02 36.3 C L 60 18 110/64 60 L Room Air 08/08/24 11:35 96 08/08/24 08:07 36.5 C 58 L 22 134/74 92 Room Air 08/08/24 07:00 60 08/08/24 02:38 36.5 C 62 18 125/65 94 Nasal Cannula Laboratory Results Laboratory Results - last 24 hr 08/04/24 08/08/24 11:04 05:34 Sodium 133 L Potassium 4.7 Chloride 96 L Carbon Dioxide 33 H Anion Gap 4 BUN 26 H Creatinine 1.78 H Est Cr Clr Drug Dosing 49.5 eGFR 40.79 BUN/Creatinine Ratio 14.6 Glucose 91 Calcium 9.4 Urine MDEA negative MDMA negative Urine MDMA negative
--- NOTE | 2024-08-08 14:11 | XRay Report ---
XR chest 2V PA/lateral CLINICAL HISTORY: Persistent dyspnea. COMPARISON STUDY: Chest CT and chest radiograph August 04, 2024. FINDINGS: Left subclavian pacer/AICD is in place. There is no pneumothorax. Small bilateral pleural e ffusions have slightly increased. Associated bibasilar opacities have increased. Pulmonary edema has slightly progressed. Cardiomegaly is again noted. Mediastinal contours are stable. Multiple acute kimber ateral rib fractures are better depicted on chest CT of August 04, 2024. IMPRESSION: 1. Cardiomegaly with progression of pulmonary edema. 2. Increase in small bilateral pleural effusions with associated bibasilar opacities which could refl ect atelectasis or consolidation. 3. Multiple acute bilateral rib fractures better depicted on chest CT of August 04, 2024. No pneumot horax. ACT 112: Negative or not required by law. Electronically signed by: Jordan Rao M.D. 08/08/2024 2:09 PM
--- NOTE | 2024-08-08 15:31 | Hospitalist Progress Note ---
Date of Service August 08, 2024 Assessment & Plan (1) Respiratory arrest before cardiac arrest: (2) Pneumonia: (3) Acute kidney injury: (4) Multiple fractures of ribs, left side, initial encounter for closed fracture: (5) Ischemia reperfusion injury of liver: (6) Acute on chronic heart failure with reduced ejection fraction and diastolic dysfunction: (7) Chronic hyponatremia: Plan Patient continues to recover from respiratory arrest. Completing oral course of antibiotics for presumed pneumonia Chest x-ray consistent with volume overload, may explain patient's intermittent hypoxia, give 1 dose of IV Lasix today and continue to monitor daily Continue to monitor renal function and liver functions Reviewed therapy notes, patient significantly deconditioned and requires rehab, case management aware and application sent out Continue pain control for rib fractures Updated and daughter via phone Admission and Anticipated Discharge Date Admission Date: August 04, 2024 Subjective Patient feels he is slightly better. Noted to be hypoxic overnight and intermittently during the day specially with activity. Physical Exam Physical Exam: Constitutional: Alert, nontoxic, sitting in chair HEENT: Mucous membranes moist. Lungs: Decreased breath sounds, crackles at bases CV: S1-S2, regular Abdomen: Soft, nontender, nondistended Extremities: No significant edema Neuro: No focal deficits, generalized weakness Psych: Cooperative, normal mood Results & Data Results & Data Vital Signs (Past 12 Hours) Vital Signs Temp Pulse Pulse Resp BP Pulse Ox O2 Del Method 08/08/24 12:02 36.3 C L 60 18 110/64 60 L Room Air 08/08/24 11:35 96 08/08/24 08:07 36.5 C 58 L 22 134/74 92 Room Air 08/08/24 07:00 60 Diagnostic Findings Reviewed imaging, laboratory and diagnostic studies. Pertinent findings as below. Personally reviewed chest x-ray, pleural effusions, pulmonary congestion Creatinine 1.78, improved Carbon dioxide 33 Sodium 133
[2024-08-08] MEDS: FUROSEMIDE 40 MG/4 ML VIAL IV ONE (16:10)
[2024-08-09 06:31] LABS: Hematocrit (blood only) 37.2 % (42.0-52.0); Hemoglobin 12.4 g/dl (14.0-18.0); Mean Corpuscular Hemoglobin 31.4 pg (25.0-34.0); Mean Corpuscular Hgb Conc 33.3 g/dL (32.0-36.0); Mean Corpuscular Volume 94.2 fL (80.0-100.0); Mean Platelet Volume 8.9 fL (9.4-12.4); Platelet Count 133 K/uL (130-400); RDW Coefficient of Variation 15.9 % (11.5-14.5); RDW Standard Deviation 54.4 fL (36.4-46.3); Red Blood Count 3.95 M/uL (4.70-6.10); White Blood Count 7.57 K/ul (4.8-10.8)
[2024-08-09 06:48] LABS: Albumin Level 3.3 gm/dl (3.4-5.0); BUN Creatinine Ratio 15.6 (10-20); Bilirubin Direct 0.7 mg/dl (0-0.2); Bilirubin,Total 1.7 mg/dl (0.2-1.0); Calcium 9.3 mg/dl (8.6-10.3); Creatinine Clr Calc Pharmacy 57.1 ml/min; Potassium 4.1 mmol/L (3.5-5.1)
--- NOTE | 2024-08-09 11:10 | Cardiology Progress Note ---
Date of Service August 09, 2024 Assessment & Plan (1) Respiratory arrest: (2) Acute on chronic heart failure with reduced ejection fraction and diastolic dysfunction: (3) Multiple fractures of ribs, left side, initial encounter for closed fracture: Plan 69 year old male who was admitted after cardiopulmonary arrest at home, CPR performed by family, EMS arrived and reported agonal breathing. AED applied, no shocks advised. He spontaneously regained consciousness with CPR (no ACLS medications administered). ICD interrogated with no shocks delivered. - possible primary respiratory arrest, CXR with possible pneumonia, no evidence of ACS, troponin elevation likely secondary to arrest, trending down on repeat - overall feeling well today on exam - labs with mild anemia, hyponatremia, SP - repeat LFTs ordered - continue aspirin, plavix, metoprolol succinate, rosuvastatin, zetia - hold CONDITIONER TENDER entresto and eplerenone due to SP, hold amiodarone due to transaminitis - antibiotics for pneumonia per primary - continue to monitor on telemetry 08/07/2024 Patient by own description is slowly improving. No arrhythmias noted on telemetry. Renal function and hepatic enzymes are improving but would continue to hold Entresto and eplerenone Continue to hold amiodarone. Patient with defibrillator in place Volume status appears nearly euvolemic with only trace edema. Weight stable with good urinary output. Sodium improved We will continue to hold furosemide Prior history of right pleural effusion with Pleurx catheter removed June 2024 Repeat chest x-ray a.m. 08/08/2024 Patient with continued slow improvement. Persistent hypoxia with ambulation present. Chest x-ray ordered for today pending Renal function slowly improving. Will continue to hold furosemide Entresto and amiodarone Agree with plans for inpatient rehab 08/09/2024 Clinically improving. Responded to IV diuresis last night with stable to improved renal function. Complex issues include 1. Respiratory arrest possible multifactorial/medications 2. Ischemic cardiomyopathy with chronic congestive heart failure 3. Status post pacer defibrillator implantation following [id number] cardiac arrest Recommendations: Resume oral furosemide at 40 mg daily today. Continue to hold amiodarone, eplerenone Anticipating resuming Entresto tomorrow at reduced dose 26/24 mg twice per day I spent a total of 40 minutes on the date of service in preparation, delivery, and documentation of the care provided to this patient excluding any time spent in the performance of separately billed services. Admission and Anticipated Discharge Date Admission Date: August 04, 2024 Subjective Patient was seen and examined, chart, medications, telemetry reviewed. Slowly getting stronger. Occasional lightheadedness on standing but no dizziness syncope or near syncope. No chest pain or shortness of breath. Did respond to IV furosemide last evening with improved respiratory status. Physical Exam Constitutional: no acute distress Eyes: PERRL, conjunctivae normal, anicteric sclerae Neck: trachea midline, no thyromegaly Respiratory: Auscultation: + diminished lung sounds Cardiovascular: Rate/Rhythm: regular rate and regular rhythm (AV paced) Vessels: no JVD Extremities: no edema Gastrointestinal (Abdomen): normal bowel sounds, soft, nontender, no hepatosplenomegaly Results & Data Vital Signs (Past 12 Hours) Vital Signs Temp Pulse Pulse Resp BP Pulse Ox O2 Del Method 08/09/24 09:00 60 08/09/24 08:12 36.7 C 62 19 125/75 94 Nasal Cannula 08/09/24 03:00 36.5 C 61 18 122/65 92 Nasal Cannula O2 Flow Rate 08/09/24 09:00 08/09/24 08:12 1 08/09/24 03:00
[2024-08-09] MEDS: FUROSEMIDE 40 MG TAB PO SCH (12:05)
--- NOTE | 2024-08-09 13:27 | Hospitalist Progress Note ---
Date of Service August 09, 2024 Assessment & Plan (1) Respiratory arrest before cardiac arrest: (2) Pneumonia: (3) Acute kidney injury: (4) Multiple fractures of ribs, left side, initial encounter for closed fracture: (5) Ischemia reperfusion injury of liver: (6) Acute on chronic heart failure with reduced ejection fraction and diastolic dysfunction: (7) Chronic hyponatremia: (8) Open wound of fifth toe of right foot: Plan Patient showing steady improvement from his initial respiratory arrest. Responded well to IV Lasix yesterday Resume oral Lasix as noted by cardiology, continuing to reintroduce cardiac meds as directed by cardiology Continue therapies Communication with wound nurse, continue wound care for the fifth toe, consider podiatry consultation if available Anticipate patient's renal function and liver function is to return to baseline with time, continue to monitor intermittently Titrate oxygen to off as able Case management continuing to work with rehab placement, insurance authorization Admission and Anticipated Discharge Date Admission Date: August 04, 2024 Subjective Patient reports good results from the Lasix yesterday. Feels as though his breathing is easier. On minimal amounts of oxygen today. Physical Exam Physical Exam: Constitutional: Alert, nontoxic, no acute distress HEENT: Mucous membranes moist. Lungs: Decreased breath sounds, few crackles at bases left greater than right CV: S1-S2, regular Abdomen: Soft, nontender, nondistended Extremities: Continued pedal edema but improved Neuro: No focal deficits, generalized weakness Psych: Cooperative, normal mood Results & Data Results & Data Vital Signs (Past 12 Hours) Vital Signs Temp Pulse Pulse Resp BP Pulse Ox O2 Del Method 08/09/24 11:29 36.7 C 60 19 119/64 91 Room Air 08/09/24 09:00 60 08/09/24 08:12 36.7 C 62 19 125/75 94 Nasal Cannula 08/09/24 03:00 36.5 C 61 18 122/65 92 Nasal Cannula O2 Flow Rate 08/09/24 11:29 08/09/24 09:00 08/09/24 08:12 1 08/09/24 03:00 Diagnostic Findings Reviewed imaging, laboratory and diagnostic studies. Pertinent findings as below. LFTs reviewed, continuing to improve WBC 7.5 Hemoglobin 12.4 Sodium 134 Creatinine 1.54, continuing to improve Reviewed wound photo of right fifth toe
[2024-08-10 08:25] VITALS: RESP 16; O2SAT 91
[2024-08-10] MEDS: VALSARTAN/SACUBITRIL 26/24MG TAB PO SCH (09:42)
[2024-08-10 11:48] VITALS: BP 128/66; PULSE 60; TEMP 97.9
--- NOTE | 2024-08-10 12:52 | Discharge Summary ---
Discharge Summary Date of Service August 10, 2024 Principal Dx & Hospital Course #1 = Principal Diagnosis (1) Respiratory arrest before cardiac arrest: (2) Pneumonia: (3) Acute kidney injury: (4) Multiple fractures of ribs, left side, initial encounter for closed fr acture: (5) Ischemia reperfusion injury of liver: (6) Acute on chronic heart failure with reduced ejection fraction and diastolic dysfunction: (7) Chronic hyponatremia: (8) Open wound of fifth toe of right foot: Plan Patient presented to the emergency room with acute respiratory arrest leading to cardiac arrest with CPR performed by family members in the field. Patient been resuscitated by the time he got to the ER. No shock was recommended on an AED. Patient was admitted to the ICU. Cardiology and crosscutter rolled glass consultations were obtained. GI and nephrology consultations were also obtained due to acute liver injury and kidney injury. Patient was continued on antibiotics for presumed pneumonia which she had been treated for even prior to admission. Pain was managed from rib fractures associated with his CPR. All nephrotoxins were held. Echocardiogram was performed which showed decreased ejection fraction from 30- 35% to 20 -25%. With these interventions the patient steadily improved. He was moved out of the ICU. His kidney function and liver dysfunction steadily improved throughout his hospitalization. Urology consultation was obtained for some stranding around ureter no interventions were required. And the patient was able to void without issues. He is eventually transition to oral antibiotics. His diuretics and some of his home medications were reintroduced. His activity was increased. Due to this acute event he was severely D condition. Case management was involved. Applications for acute rehab were sent. Patient was seen by wound care for wound on his foot and is subsequently podiatry. They are recommending Aquacel and Optifoam. Patient has diuresing well here at the end of his hospitalization. He has been titrated off oxygen. And has been stabilized on the current medical regimen. Medically maximized at this point and can continue his rehabilitation at acute rehab. At acute rehab would continue wound care as mentioned above. Will continue to monitor daily weights, patient may need some adjustment in his diuretics moving forward. Follow-up with cardiology and nephrology and podiatry. He will be complete course of antibiotics a couple days as noted on his med list. Would recommend continue monitor oxygen saturation intermittently especially as his activity increases. And would monitor renal function and liver functions to ensure that they continue to improve. Notes For Next Care Provider Follow-up with providers as mentioned Daily wound care with Aquacel and Optifoam Monitor renal function and liver functions intermittently to ensure continued improvement Monitor weight, may need adjustments in diuretics Medication Changes From Visit Amiodarone discontinued eplerenone discontinued Entresto dose decreased Admission HPI Per Admitting Provider 69-year-old male with past medical history significant dyslipidemia, right pleural effusion, history of pulmonary fibrosis, peripheral artery disease, CAD status post stent, hypertension, abdominal aortic aneurysm, bilateral carotid stenosis, chronic combined systolic and diastolic CHF, history of VT, status post ICD, history of gout, chronic venous stasis dermatitis, history of CVA, neuropathy, 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 Patient tonight when he was going to sleep suddenly stopped breathing. His son started CPR and EMS were called. Seems when EMS arrived patient was in agonal breathing and seems pulses were present. CPR was continued for 5 minutes and no medication administered. AED pads were applied but no shock advised. As per ER paramedics blood pressure was 155 /100, heart rate 74 respiratory rate 24 on 15 lt. Blood sugar 101. In the ER patient was alert and awake and oriented. Patient has a bruise on his left side of the face. Patient lives with his and son. Daughter is in the room. Patient says that he fell couple of days ago. States he slipped and fell down. No loss of consciousness. Since the fall he was using walker. He has chest pain from his rib fractures. Currently states breathing is fine. He is on oxygen mask. States recently was started on doxycycline for cough and congestion. Denies any fevers. No headache. No dizziness. Vision is okay. No runny nose. Has some dry throat. Appetite has been down since last 1 week. No nausea. No abdominal pain. Somewhat constipated. Micturating okay. Hemodynamics okay currently. Past medical history. As mentioned above. Past surgical history. Cardiac cath. Colonoscopy. Colonoscopy with biopsy. Left common femoral endarterectomy. Excision of lesion on the floor of the mouth on the right side. Iliac artery revascularization with stent placed angioplasty. Right ankle fracture repair. Injection of lumbosacral spine. Left pelvic/hip joint surgery. Right pelvic hip joint surgery. Appendectomy. Removal of right-sided neck lymph nodes. Removal of right submaxillary gland. Bilateral cataracts. Left carotid endarterectomy. Social history. . Quit smoking 2016. Smoked 1 pack a day for 40 years. Alcohol 2 beers per day currently. No drug use. Family history. Father had heart disorder. Prostate cancer. Mother had anemia. Brother had CABG. Admission Exam Per Admitting Provider See H&P Discharge Exam Constitutional: Alert, nontoxic HEENT: Mucous membranes moist. Facial bruising from fall prior to admission is significantly improved Lungs: Decreased breath sounds few crackles at the bases Chest: Left rib tenderness to palpation CV: S1-S2, regular Abdomen: Soft, nontender, nondistended Extremities: Some dependent edema posterior thighs improved Neuro: No focal deficits, general weakness Psych: Cooperative, normal mood Updated Medication List Medication Instructions Recorded Confirmed Type aspirin 81 mg tablet,delayed 81 mg PO QAM #30 tabs 02/17/20 08/04/24 Rx release ezetimibe 10 mg tablet (Zetia) 10 mg PO QAM #30 tabs 02/17/20 08/04/24 Rx nitroglycerin 0.4 mg sublingual 0.4 mg sublingual PRN PRN chest 02/17/20 08/04/24 Rx tablet (Nitrostat) pain #30 tabs allopurinol 300 mg tablet 300 mg PO HS 01/02/21 08/04/24 History vitamin B complex 1 tab PO DAILY 01/02/21 08/04/24 History albuterol sulfate 90 mcg/actuation 2 puff inhalation DIRECTED PRN 06/15/23 08/04/24 History aerosol inhaler Shortness Of Breath Or Wheezing furosemide 40 mg tablet (Lasix) 40 mg PO DAILY 06/15/23 08/04/24 History vitamins A,C,I-dcus-xojwya 4,296 1 cap PO QAM 06/15/23 08/04/24 History mcg-226 mg-90 mg capsule (PreserVision AREDS) clopidogrel 75 mg tablet 75 mg PO QAM #30 tabs 06/19/23 08/04/24 Rx metoprolol succinate 25 mg 25 mg PO DAILY@1800 #30 tabs 06/19/23 08/04/24 Rx tablet,extended release 24 hr metoprolol succinate 50 mg 50 mg PO QAM #30 tabs 06/19/23 08/04/24 Rx tablet,extended release 24 hr amiodarone 200 mg tablet 200 mg PO BID 03/01/24 08/04/24 History eplerenone 25 mg tablet 25 mg PO QAM 03/01/24 08/04/24 History rosuvastatin 10 mg tablet 10 mg PO DAILY 03/01/24 08/04/24 History sacubitril 97 mg-valsartan 103 mg 1 tab PO BID 03/01/24 08/04/24 History tablet (Entresto) doxycycline hyclate 100 mg capsule 100 mg PO AMHS 08/04/24 08/04/24 History fluticasone fur. 100 mcg-umeclid 1 ea inhalation QAM 08/04/24 08/04/24 History 62.5 mcg-vilant 25 mcg inhalat.powder (Trelegy Ellipta) gabapentin 300 mg capsule 300 mg PO AMHS 08/04/24 08/04/24 History acetaminophen 500 mg tablet 1,000 mg (2 x 500 mg) PO TID #100 08/10/24 Rx (Tylenol Extra Strength) tabs albuterol sulfate 90 mcg/actuation 2 puff inhalation Q6R PRN 08/10/24 Rx aerosol inhaler (Ventolin HFA) shortness of breath or wheezing #1 g allopurinol 100 mg tablet 100 mg PO HS #30 tabs 08/10/24 Rx cefdinir 300 mg capsule 300 mg PO BID #3 caps 08/10/24 Rx diclofenac sodium 1 % topical gel 2 g EXT BID PRN rib/joint pain 08/10/24 Rx (Voltaren Arthritis Pain) #100 grams doxycycline hyclate 100 mg capsule 100 mg PO BID 3 days #6 caps 08/10/24 Rx pantoprazole 40 mg tablet,delayed 40 mg PO QAM #30 tabs 08/10/24 Rx release sacubitril 24 mg-valsartan 26 mg 1 tab PO BID #60 tabs 08/10/24 Rx tablet (Entresto) tramadol 50 mg tablet 50 mg PO Q6H PRN pain #12 tabs 08/10/24 Rx Hospital Stay Data Consultations 08/04/24 03:24 ED Decision to Admit Stat 08/04/24 05:19 Consult [place] Soaping Machine Operator Routine 08/04/24 08:00 Consult Cardiology Routine Consult Gastroenterology Routine Consult Nephrology Routine Consult Pulmonology Routine Consult Urology Routine 08/09/24 13:41 Consult Podiatry Routine Diagnostic Imagining Performed 08/04/24 00:40 CT cervical spine wo con Stat CT facial bones wo con Stat CT head/brain wo con Stat 08/04/24 01:03 CT abd pelvis wo con Stat CT chest diagnostic wo con Stat 08/04/24 05:59 US venous doppler LE BI Routine 08/04/24 06:52 US portal veins doppler [US duplex portal hepatic veins] Routine 08/04/24 09:45 US carotid doppler BI Urgent Reviewed imaging, laboratory and diagnostic studies. Pertinent findings as below. WBC 7.5 Hemoglobin 12.4 Platelets 133 Sodium 134 Potassium 4.1 Creatinine 1.54 Total bilirubin 1.7, improved Direct bilirubin 0.7, improved AST 89, improved ALT 137, improved Alk phos 313, improved Carotid Doppler no significant carotid stenosis Portal vein imaging no thrombosis Lower extremity negative for DVT on ultrasound CT chest with rib fractures on the right 456 and 7 Blood and urine cultures no growth Echocardiogram showed ejection fraction 20 to 25%, moderate pulmonary hypertension, severe global hypokinesis. I refer you to the full report for details Most recent EKG shows AV dual paced rhythm Pending Results Patient Have Any Pending Studies at Discharge: No Discharge Instructions Given to Patient (Per Discharging Provider) Recommend BMP in 3 to 5 days Recommend hepatic function panel in 3 to 5 days Monitor weight and volume status Total Time Total Time Spent Total Time Spent (In Minutes): 55
--- NOTE | 2024-08-10 13:59 | Podiatry Consultation ---
Date of Consultation August 10, 2024 Assessment & Plan (1) Open wound of fifth toe of right foot: Encounter type: initial encounter Qualified Code(s): S91.104A - Unspecified open wound of right lesser toe(s) without damage to nail, initial encounter (2) Other specified peripheral vascular diseases: (3) Non-pressure chronic ulcer of other part of right foot with fat layer exposed: History of Present Illness Reason for Consultation: Right fifth toe ulceration Attending Physician: Miguel Tate DO Allergies Allergy/AdvReac Type Severity Reaction Status Date / Time spironolactone AdvReac Unknown Verified 03/01/24 09:12 Home Medications Medication Instructions Recorded Confirmed Type aspirin 81 mg tablet,delayed 81 mg PO QAM #30 tabs 02/17/20 08/04/24 Rx release ezetimibe 10 mg tablet (Zetia) 10 mg PO QAM #30 tabs 02/17/20 08/04/24 Rx nitroglycerin 0.4 mg sublingual 0.4 mg sublingual PRN PRN chest 02/17/20 08/04/24 Rx tablet (Nitrostat) pain #30 tabs vitamin B complex 1 tab PO DAILY 01/02/21 08/04/24 History furosemide 40 mg tablet (Lasix) 40 mg PO DAILY 06/15/23 08/04/24 History vitamins A,C,K-viwr-vbbowk 4,296 1 cap PO QAM 06/15/23 08/04/24 History mcg-226 mg-90 mg capsule (PreserVision AREDS) clopidogrel 75 mg tablet 75 mg PO QAM #30 tabs 06/19/23 08/04/24 Rx metoprolol succinate 25 mg 25 mg PO DAILY@1800 #30 tabs 06/19/23 08/04/24 Rx tablet,extended release 24 hr metoprolol succinate 50 mg 50 mg PO QAM #30 tabs 06/19/23 08/04/24 Rx tablet,extended release 24 hr rosuvastatin 10 mg tablet 10 mg PO DAILY 03/01/24 08/04/24 History fluticasone fur. 100 mcg-umeclid 1 ea inhalation QAM 08/04/24 08/04/24 History 62.5 mcg-vilant 25 mcg inhalat.powder (Trelegy Ellipta) gabapentin 300 mg capsule 300 mg PO AMHS 08/04/24 08/04/24 History acetaminophen 500 mg tablet 1,000 mg (2 x 500 mg) PO TID #100 08/10/24 Rx (Tylenol Extra Strength) tabs albuterol sulfate 90 mcg/actuation 2 puff inhalation Q6R PRN 08/10/24 Rx aerosol inhaler (Ventolin HFA) shortness of breath or wheezing #1 g allopurinol 100 mg tablet 100 mg PO HS #30 tabs 08/10/24 Rx cefdinir 300 mg capsule 300 mg PO BID #3 caps 08/10/24 Rx diclofenac sodium 1 % topical gel 2 g EXT BID PRN rib/joint pain 08/10/24 Rx (Voltaren Arthritis Pain) #100 grams doxycycline hyclate 100 mg capsule 100 mg PO BID 3 days #6 caps 08/10/24 Rx pantoprazole 40 mg tablet,delayed 40 mg PO QAM #30 tabs 08/10/24 Rx release sacubitril 24 mg-valsartan 26 mg 1 tab PO BID #60 tabs 08/10/24 Rx tablet (Entresto) tramadol 50 mg tablet 50 mg PO Q6H PRN pain #12 tabs 08/10/24 Rx Patient History Medical History Mouth cancer Neuropathic foot ulcer Nonsustained ventricular tachycardia History of tobacco abuse NSTEMI (non-ST elevated myocardial infarction) Total of 4. 1997 Circumflex, 02/16/2020 Proximal LAD, 03/07/2020 Proximal and Mid RCA NSVT (nonsustained ventricular tachycardia) Ischemic cardiomyopathy Surgical History History of colonoscopy with polypectomy multiple - prior villous adenoma in 2007 History of oral surgery excision of right mouth floor lesion, right submandibular gland, suprahyoid lymphadenectomy - 2016 History of cataract extraction History of appendectomy Stented coronary artery H/O heart artery stent Family History Father Heart disease Prostate cancer Brother Heart disease Social History Smoking Status: Unknown if ever smoked Second Hand Exposure: No; Do You Dip or Chew Tobacco: No; Hx Alcohol Use: Yes Alcohol type: beer Hx Substance Use: No Preferred Language: Azerbaijani Communication Ability: Effective President & Founder Required: No Beliefs That Will Affect Care: None marital status: Current Living Situation: Family Current Living Situation Comment: and son Feels Safe at Home: Yes Assistive Devices: Walker Review of Systems Review of Systems: All systems reviewed & are unremarkable except as noted in HPI & below Constitutional: no fever, no chills and no fatigue Eyes: no problem reported Ear, Nose, Mouth, Throat: no problem reported Respiratory: no problem reported Cardiovascular: + edema; no problem reported Gastrointestinal: no nausea, no vomiting and no problem reported Musculoskeletal: no problem reported Integumentary: + skin ulcer, + wounds and + erythema Neurologic: + loss of sensation, + numbness and + pa resthesia; no generalized weakness Psychiatric: no problem reported Physical Exam Physical Exam: Lower extremity focused exam: DP/PT pulses non-palpable. Advanced trophic changes noted to bilateral lower extremity with thinning skin, distal cooling, dystrophy of nails. Right fifth toe ulceration noted to dorsolateral PIPJ. No deep probing. Wound is 50% fibrotic, 50% granular. No ascending cellulitis. No necrotic tissue noted. No pain on palpation or light bedside debridement. No ascending cellulitis. Constitutional: WD/WN, vitals as above + ill appearing and + morbidly obese Eyes: PERRL, conjunctivae normal, anicteric sclerae ENMT: external ear and nose normal, oropharynx normal Neck: trachea midline, no thyromegaly normal visual inspection Respiratory: normal respiratory effort; no respiratory distress Cardiovascular: Rate/Rhythm: regular rate and regular rhythm Chest (Breasts): Chest: normal inspection of chest Gastrointestinal (Abdomen): Inspection/Auscultation: abdomen normal to inspection Percussion/Palpation: + abdomen tender and abdomen soft Musculoskeletal: no cyanosis or clubbing, extremities motor strength 5/5 Head/Neck/Chest: normocephalic and head atraumatic Extremities: extremities normal to inspection Neurologic: awake; no focal motor deficits Psychiatric: A+Ox3, euthymic affect Results & Data Vital Signs (Past 12 Hours) Vital Signs Temp Pulse Pulse Resp BP BP Pulse Ox 08/10/24 13:06 36.6 C 60 16 128/66 127/76 91 08/10/24 11:47 36.6 C 60 16 128/66 91 08/10/24 08:24 36.5 C 61 16 146/72 H 91 08/10/24 08:15 08/10/24 07:36 60 08/10/24 02:16 94 08/10/24 02:05 36.7 C 62 18 125/74 88 L O2 Del Method O2 Flow Rate 08/10/24 13:06 08/10/24 11:47 Room Air 08/10/24 08:24 Room Air 08/10/24 08:15 Room Air 08/10/24 07:36 08/10/24 02:16 Nasal Cannula 2 08/10/24 02:05 Room Air
--- NOTE | 2024-08-10 15:37 | Cardiology Progress Note ---
Date of Service August 10, 2024 Assessment & Plan (1) Respiratory arrest: (2) Acute on chronic heart failure with reduced ejection fraction and diastolic dysfunction: (3) Multiple fractures of ribs, left side, initial encounter for closed fracture: Plan 69 year old male who was admitted after cardiopulmonary arrest at home, CPR performed by family, EMS arrived and reported agonal breathing. AED applied, no shocks advised. He spontaneously regained consciousness with CPR (no ACLS medications administered). ICD interrogated with no shocks delivered. - possible primary respiratory arrest, CXR with possible pneumonia, no evidence of ACS, troponin elevation likely secondary to arrest, trending down on repeat - overall feeling well today on exam - labs with mild anemia, hyponatremia, SP - repeat LFTs ordered - continue aspirin, plavix, metoprolol succinate, rosuvastatin, zetia - hold [employer] entresto and eplerenone due to SP, hold amiodarone due to transaminitis - antibiotics for pneumonia per primary - continue to monitor on telemetry 08/07/2024 Patient by own description is slowly improving. No arrhythmias noted on telemetry. Renal function and hepatic enzymes are improving but would continue to hold Entresto and eplerenone Continue to hold amiodarone. Patient with defibrillator in place Volume status appears nearly euvolemic with only trace edema. Weight stable with good urinary output. Sodium improved We will continue to hold furosemide Prior history of right pleural effusion with Pleurx catheter removed June 2024 Repeat chest x-ray a.m. 08/08/2024 Patient with continued slow improvement. Persistent hypoxia with ambulation present. Chest x-ray ordered for today pending Renal function slowly improving. Will continue to hold furosemide Entresto and amiodarone Agree with plans for inpatient rehab 08/09/2024 Clinically improving. Responded to IV diuresis last night with stable to improved renal function. Complex issues include 1. Respiratory arrest possible multifactorial/medications 2. Ischemic cardiomyopathy with chronic congestive heart failure 3. Status post pacer defibrillator implantation following [id number] cardiac arrest Recommendations: Resume oral furosemide at 40 mg daily today. Continue to hold amiodarone, eplerenone Anticipating resuming Entresto tomorrow at reduced dose 26/24 mg twice per day 08/10/2024 1. Respiratory arrest possible multifactorial/medications 2. Ischemic cardiomyopathy with chronic congestive heart failure 3. Status post pacer defibrillator implantation following [id number] cardiac arrest Plan as previously outlined with initiation of oral furosemide begun and patient to resume Entresto today (had first dose this morning). Continue to hold amiodarone and eplerenone though may ultimately resume eplerenone as outpatient. Patient to go to rehab with cardiology follow-up post rehab discharge I spent a total of 30 minutes on the date of service in preparation, delivery, and documentation of the care provided to this patient excluding any time spent in the performance of separately billed services. Admission and Anticipated Discharge Date Admission Date: August 04, 2024 Subjective Patient seen and personally examined clinically appears improved from day prior. No arrhythmias on telemetry. Renal function and blood pressure improving. Working with physical therapy Review of Systems Review of Systems: All systems reviewed & are unremarkable except as noted in Subjective Physical Exam Constitutional: no acute distress Eyes: PERRL, conjunctivae normal, anicteric sclerae Neck: trachea midline, no thyromegaly Respiratory: Auscultation: + diminished lung sounds Cardiovascular: Rate/Rhythm: regular rate and regular rhythm (AV paced) Vessels: no JVD Extremities: no edema Chest (Breasts): Chest: + pacemaker Gastrointestinal (Abdomen): normal bowel sounds, soft, nontender, no hepatosplenomegaly Results & Data Vital Signs (Past 12 Hours) Vital Signs Temp Pulse Pulse Resp BP BP Pulse Ox 08/10/24 13:06 36.6 C 60 16 128/66 127/76 91 08/10/24 11:47 36.6 C 60 16 128/66 91 08/10/24 08:24 36.5 C 61 16 146/72 H 91 08/10/24 08:15 08/10/24 07:36 60 O2 Del Method 08/10/24 13:06 08/10/24 11:47 Room Air 08/10/24 08:24 Room Air 08/10/24 08:15 Room Air 08/10/24 07:36
== END 2024-08-10 15:20 | DRG 205 ==
LOC: ED 00:31 → SUATTDRO 04:54 → 1E 04:54 → 4W 22:26